=== PATIENT | female | born 1955 | race African-American/Black ===

== ENCOUNTER 2017-08-10 14:49 | Emergency (ER) | payer MEDICARE, OTHER ==
[2017-08-10 15:21] LABS: Hemoglobin 5.8 g/dL (12.0-16.0); Mean Corpuscular Hemoglobin 38.1 pg (27.0-31.0); Mean Platelet Volume 6.8 fL (7.4-10.4); Platelet Count 283 thou/uL (130-400); RBC Distribution Width 16.3 % (11.5-14.5); Red Blood Cell (RBC) Count 1.51 mill/uL (4.20-5.40); White Blood Cell (WBC) Count 4.3 thou/uL (4.8-10.8)
--- NOTE | 2017-08-10 15:41 | RAD ---
FRONTAL RADIOGRAPH CHEST: Date: 08-10-17 Comparison: 10-06-16 History: Chest pain. FINDINGS: There is atherosclerotic calcification of the thoracic aorta. Clips in the right upper quadrant sugge st prior cholecystectomy. No pneumothorax, pleural fluid, focal consolidation or alveolar edema. Smal l calcified nodules and bilateral lung apices suggest prior granulomatous disease. IMPRESSION: Chronic findings as detailed above. No focal consolidation or alveolar edema. POS: [facility]
[2017-08-10 15:42] LABS: #Lymphocytes 1.1 thou/uL (1.20-3.40); #Monocytes 0.4 thou/uL (0.11-0.59); #Neutrophils 2.8 thou/uL (1.40-6.50); %Basophils 0.3 % (0.0-1.0); %Eosinophils 1.1 % (0.0-10.0); %Lymphocytes 24.9 % (21.0-51.0); %Monocytes 9.4 % (0.0-10.0); %Neutrophils 64.2 % (42.0-75.0); Anisocytosis SLIGHT = 6-15 cells (100X) (0-5/hpf); CKMB 0.7 ng/mL (0-6.6); MDiff Complete? YES; Macrocytosis SLIGHT = 6-15 cells (100X) (0-5/hpf); PLT Morphology Comment Appears Adequate; Polychromasia SLIGHT = 2-3 cells (100X) (0-2/hpf); Troponin I 0.042 ng/mL (< 0.028)
[2017-08-10 15:45] LABS: ALT (SGPT) 10 U/L (8-55); AST (SGOT) 16 U/L (5-34); Albumin 3.3 g/dL (3.4-4.8); Alkaline Phosphatase 136 U/L (40-150); Anion Gap 16 mmol/L (10-20); BUN (Urea Nitrogen) 13 mg/dL (9.8-20.1); Bilirubin, Total 0.2 mg/dL (0.2-1.2); Calc. Creatinine Clearance 0 mL/min (70-130); Calcium 8.4 mg/dL (7.8-10.44); Carbon Dioxide 30 mmol/L (23-31); Chloride 99 mmol/L (98-107); Estimated GFR-MDRD 20; Glucose 104 mg/dL (80-115); Lipase 101 U/L (8-78); Potassium 3.6 mmol/L (3.5-5.1); Protein, Total 6.3 g/dL (6.0-8.3); Sodium 141 mmol/L (136-145)
== END 2017-08-10 22:27 | disposition home or self-care (01) ==
LOC: ERS 14:49
DX: D64.9 Anemia, unspecified (principal); D50.0 Iron deficiency anemia secondary to blood loss (chronic); I25.10 Atherosclerotic heart disease of native coronary artery without angina pectoris; J45.909 Unspecified asthma, uncomplicated; I12.0 Hypertensive chronic kidney disease with stage 5 chronic kidney disease or end stage renal disease; N18.6 End stage renal disease; F17.210 Nicotine dependence, cigarettes, uncomplicated; Z99.2 Dependence on renal dialysis; Z79.899 Other long term (current) drug therapy
CPT/HCPCS: 36430; 71045; 80053; 82553; 83690; 84484; 85025; 86850; 86900; 86901; 86920; 93005; 99285; P9016; 36415

== ENCOUNTER 2017-10-06 04:36 | Inpatient (IN) | payer MEDICARE, OTHER ==
[2017-10-06 05:57] LABS: #Eosinphils 0.2 thou/uL (0.0-0.7); #Monocytes 0.4 thou/uL (0.11-0.59); #Neutrophils 2.4 thou/uL (1.40-6.50); %Basophils 0.4 % (0.0-1.0); %Eosinophils 5.3 % (0.0-10.0); %Lymphocytes 25.4 % (21.0-51.0); %Monocytes 10.7 % (0.0-10.0); %Neutrophils 58.2 % (42.0-75.0); Hemoglobin 5.8 g/dL (12.0-16.0); Mean Corpuscular HGB CONC 33.4 g/dL (32.0-36.0); Mean Corpuscular Hemoglobin 33.4 pg (27.0-31.0); Platelet Count 228 thou/uL (130-400); RBC Distribution Width 16.6 % (11.5-14.5); Red Blood Cell (RBC) Count 1.73 mill/uL (4.20-5.40); White Blood Cell (WBC) Count 4.1 thou/uL (4.8-10.8)
[2017-10-06 06:04] LABS: ALT (SGPT) Less than 7 U/L (8-55); AST (SGOT) 13 U/L (5-34); Albumin 3.1 g/dL (3.4-4.8); Alkaline Phosphatase 119 U/L (40-150); Anion Gap 14 mmol/L (10-20); BUN (Urea Nitrogen) 30 mg/dL (9.8-20.1); Bilirubin, Total 0.2 mg/dL (0.2-1.2); Calc. Creatinine Clearance 0 mL/min (70-130); Calcium 9.1 mg/dL (7.8-10.44); Carbon Dioxide 28 mmol/L (23-31); Chloride 98 mmol/L (98-107); Estimated GFR-MDRD 11; Globulin 3.1 g/dL (2.4-3.5); Glucose 84 mg/dL (80-115); Potassium 3.9 mmol/L (3.5-5.1); Protein, Total 6.2 g/dL (6.0-8.3); Sodium 136 mmol/L (136-145)
[2017-10-06 06:08] LABS: CKMB 1.1 ng/mL (0-6.6); Troponin I 0.082 ng/mL (< 0.028)
[2017-10-06 08:53] LABS: Troponin I 0.078 ng/mL (< 0.028)
[2017-10-06] MEDS ORDERED: hydrALAZINE 20 MG/ML VIAL SLOW IVP PRN (09:01)
[2017-10-06] MEDS ORDERED: Ondansetron ODT 4 MG TAB PO PRN (09:01)
[2017-10-06] MEDS ORDERED: Diabetic Tussin 200 MG/10 ML UDCUP PO PRN (09:01)
[2017-10-06] MEDS ORDERED: Zolpidem Tartrate 5 MG TAB PO PRN (09:01)
[2017-10-06] MEDS ORDERED: Senokot 8.6 MG TAB PO PRN ×2 (09:01)
[2017-10-06] MEDS ORDERED: Milk Of Magnesia 30 ML UDCUP PO PRN ×2 (09:01)
[2017-10-06] MEDS ORDERED: Loperamide HCl 2 MG CAP PO PRN (09:01)
[2017-10-06] MEDS ORDERED: Chloraseptic Spray 180 ml Bottle PO PRN (09:01)
[2017-10-06] MEDS ORDERED: Ondansetron HCl/PF 4 MG/2 ML Vial IVP PRN (09:01)
[2017-10-06] MEDS ORDERED: Sodium Chloride 0.65% Nasal 44 ML BOT EA NARE PRN (09:01)
[2017-10-06] MEDS ORDERED: Eucerin (Mineral Oil/Petrolatum,White) 30 gm Jar TOP PRN (09:01)
[2017-10-06] MEDS ORDERED: Acetaminophen 325 MG TAB PO PRN (09:01)
[2017-10-06] MEDS ORDERED: Nitroglycerin 0.4 MG TAB (25 Tab Bottle) SL PRN (09:01)
[2017-10-06] MEDS ORDERED: Mag-Al 1200 mg/1200 mg/30 ML UDCUP PO PRN (09:01)
[2017-10-06] MEDS ORDERED: Loratadine 10 MG TAB PO PRN (09:01)
[2017-10-06] MEDS ORDERED: Artificial Tears 18 DROP/0.9 ML EA EYE PRN (09:01)
--- NOTE | 2017-10-06 09:53 | HP ---
PRIMARY CARE PHYSICIAN: Dr. Abel Blank. REASON FOR ADMISSION: Chest pain, symptomatic anemia. HISTORY OF PRESENT ILLNESS: A 62-year-old female with a history of hypertension, end-stage renal dis ease on hemodialysis who was experiencing burning pain in her substernal area, epigastric discomfort as well as burning pain in her lower extremity. She was feeling bad. She just recovered from flu-li ke illness, but still she has intermittent cough. She denies any fever or chills, but lately she was feeling more fatigued, tired, dizzy and weak. Even after a little exertion, she was getting out of breath. She denies any NSAID abuse. She denies any black tarry stool. She denies any hematochezia. She denies any vomiting, but she feels nauseated. Her appetite is good. She denies any weight los s. She denies any fever or chills. She does make urine, but she denies any UTI symptoms. She had l ast dialysis on Thursday, yesterday. At that time, patient was feeling very bad and Dr. Reyna saw her an d advised to get blood test done. She came to emergency room today and her hemoglobin was found to b e 5.8. Her troponin is also indeterminate range. At this point, we are admitting this patient for e valuation of elevated troponin and symptomatic anemia. Patient had upper endoscopy in 09/2016. At that time, it showed mild erosive gastritis and she also had a colonoscopy at the same time which was unremarkable. This patient requires periodic blood tamez sfusion support. REVIEW OF SYSTEMS: The following complete review of systems was negative, unless otherwise mentioned in the HPI or below: Constitutional: Weight loss or gain, ability to conduct usual activities. Skin: Rash, itching. Eyes: Double vision, pain. ENT/Mouth: Nose bleeding, neck stiffness, pain, tenderness. Cardiovascular: Palpitations, dyspnea on exertion, orthopnea. Respiratory: Shortness of breath, wheezing, cough, hemoptysis, fever or night sweats. Gastrointestinal: Poor appetite, abdominal pain, heartburn, nausea, vomiting, constipation, or diarr hea. Genitourinary: Urgency, frequency, dysuria, nocturia. Musculoskeletal: Pain, swelling. Neurologic/Psychiatric: Anxiety, depression. Allergy/Immunologic: Skin rash, bleeding tendency. Please see my HPI for pertinent positive and negative. All other review of systems reviewed and nega tive except as mentioned in the HPI. ALLERGIES: IODINATED CONTRAST MEDIA, PENICILLIN. CURRENT HOME MEDICATIONS: Lipitor 40 mg p.o. at bedtime, Plavix 75 mg p.o. daily, losartan 100 mg p. o. daily, clonidine 0.1 mg twice daily, Renvela 800 mg 3 tablets 3 times daily. PAST MEDICAL HISTORY: History of recurrent admission for symptomatic anemia, required multiple blood transfusions in the past; history of H. pylori which was treated in the past; ESRD on hemodialysis M , Thursday, Thursday for last 10 years; hypertension; chronic hepatitis C with a history of inter feron treatment; anemia of renal disease; secondary hyperparathyroidism of renal origin; dyslipidemia ; coronary artery disease with a stent in 2016. PAST SURGICAL HISTORY: Cholecystectomy, left arm AV fistula, cardiac catheterization with stent plac ement in 2015; EGD and colonoscopy in 09/2016 which showed mild gastritis and normal colonoscopy. PAST PSYCHIATRIC HISTORY: Reviewed and negative. FAMILY HISTORY: Diabetes mellitus to her brother and ESRD to another brother. SOCIAL HISTORY: The patient lives in [place]. She is on disability. She occasionally uses alcohol . She does smoke cigarettes of variable quantity and she denies any other illicit drug abuse. EMERGENCY ROOM COURSE: Patient is receiving blood transfusion. PHYSICAL EXAMINATION: VITAL SIGNS: On arrival, blood pressure 123/75, pulse 90, respiratory rate 18, temperature 97.6, sat uration 100% on room air, weight 58.9 kilograms. GENERAL: Patient is currently alert, awake, no obvious acute distress. HEAD: Normocephalic, atraumatic. EYES: Pupils are round and reactive to light. Extraocular muscles intact. Conjunctivae pale. ENT: Oropharynx within normal limit. Pale mucous membranes. No oral lesion, no pharyngeal erythema , no exudate. NECK: Supple, no JVD, no thyromegaly, no carotid bruit. LUNGS: Clear to auscultation without any rhonchi or rales. CARDIAC: S1 and S2 regular. No murmur, no gallop, no rub. ABDOMEN: Soft, bowel sounds present, nontender, nondistended. No organomegaly, no mass, no suprapub ic tenderness. BACK: Examination unremarkable, no CVA tenderness. EXTREMITIES: Upper extremity AV fistula in left upper arm. Lower extremity, no edema. Good periphe ral pulsation. SKIN: No skin rash. HEMATOLOGICAL SYSTEM: No lymphadenopathy. PSYCHIATRIC: Normal affect. IMAGING DATA AND SIGNIFICANT LABORATORY DATA: 1. EKG showing normal sinus rhythm, premature ventricular complexes. 2. CBC: WBC 4.1, hemoglobin 5.8, MCV 100.0, platelet 228. 3. BMP: Sodium 136, potassium 3.9, chloride 98, carbon dioxide 28, BUN 30, creatinine 4.97, glucose 84, calcium 9.1. 5. LFT: AST 13, ALT is less than 7, alkaline phosphatase 119, albumin 3.1. CK-MB 1.1, troponin I 0 .082 and then 0.078. 6. Chest x-ray based on my review, chronic changes, but this x-ray was from old not recently done an y chest x-ray. ASSESSMENT AND PLAN/IMPRESSION: 1. Symptomatic anemia. This patient had 09/2016 esophagogastroduodenoscopy and colonoscopy. Esopha gogastroduodenoscopy showed gastritis and colonoscopy was normal. This patient has recurrent admissi on for symptomatic anemia. She is on Plavix and I am suspecting that small intestinal vascular malfo rmation, possible culprit for her recurrent anemia as well as renal disease. She will need outpatien t capsule endoscopy and that is why she will need Gastroenterology followup. This admission, I will check stool for guaiac, but doubt this patient need any more procedures during this admission. We wi ll transfuse PRBC and we will repeat CBC tomorrow. If her blood count is still below 7.5, then we wi ll consider another unit of transfusion and then consider discharge home, possibly tomorrow after leona lysis. 2. Anemia of renal disease with macrocytosis. I will add Nephro-Tanika one tablet p.o. daily and ferr ous sulfate 325 mg p.o. daily as well. Patient will get Procrit 10,000 units subcu one time dose and tomorrow I will send anemia workup as well. 3. End-stage renal disease, on hemodialysis. Dr. Reyna will be consulted and Dr. Reyna will decide abou t dialysis. Patient is on Thursday, Thursday, and Thursday dialysis. 4. Coronary artery disease with a history of stent. We will continue Lipitor 40 mg p.o. at bedtime and Plavix 75 mg p.o. daily. 5. Hypertension. We will continue losartan 100 mg p.o. daily and clonidine 0.1 mg twice daily. 6. Elevated troponin. We will do serial cardiac enzymes x3, most likely related with renal disease and symptomatic anemia. We will obtain echocardiography. 7. Chronic diastolic heart failure. Currently, patient is euvolemic and we will check lipid profile tomorrow morning. 8. Secondary hyperparathyroidism of renal origin. We will continue Renvela 2400 mg p.o. t.i.d. 9. Chest discomfort, likely due to symptomatic anemia. We will do serial cardiac enzymes. If neede d, we will perform nuclear medicine stress test during this admission before discharge. 10. Deep venous thrombosis prophylaxis, sequential compression device boots only. 11. Gastrointestinal prophylaxis, Pepcid 20 mg p.o. daily. CODE STATUS: The patient is FULL CODE. Patient's is surrogate decision maker. Disposition plan based on clinical course. We are expecting patient's stay in hospital more than 2 m idnights. Plan of care discussed with patient in detail.
[2017-10-06] MEDS ORDERED: Epoetin (ESRD) 10,000 UNITS/ML VIAL SC SCH (10:00)
[2017-10-06] MEDS ORDERED: Famotidine 20 MG TAB ONE (10:13)
[2017-10-06] MEDS ORDERED: cloNIDine 0.1 MG TAB ONE (10:13)
[2017-10-06] MEDS ORDERED: Clopidogrel Bisulfate 75 MG TAB ONE (10:14)
[2017-10-06] MEDS ORDERED: Ondansetron HCl/PF 4 MG/2 ML Vial ONE (10:14)
[2017-10-06 12:06] LABS: #Eosinphils 0.2 thou/uL (0.0-0.7); #Lymphocytes 1.2 thou/uL (1.20-3.40); #Monocytes 0.5 thou/uL (0.11-0.59); #Neutrophils 2.8 thou/uL (1.40-6.50); %Basophils 0.3 % (0.0-1.0); %Eosinophils 4.1 % (0.0-10.0); %Lymphocytes 25.4 % (21.0-51.0); %Monocytes 11.5 % (0.0-10.0); %Neutrophils 58.7 % (42.0-75.0); Hemoglobin 7.2 g/dL (12.0-16.0); Mean Corpuscular HGB CONC 33.2 g/dL (32.0-36.0); Mean Corpuscular Hemoglobin 32.3 pg (27.0-31.0); Mean Corpuscular Volume 97.3 fl (81.0-99.0); Mean Platelet Volume 7.1 fL (7.4-10.4); Platelet Count 224 thou/uL (130-400); RBC Distribution Width 17.2 % (11.5-14.5); Red Blood Cell (RBC) Count 2.21 mill/uL (4.20-5.40); White Blood Cell (WBC) Count 4.7 thou/uL (4.8-10.8)
[2017-10-06 12:36] LABS: Troponin I 0.058 ng/mL (< 0.028)
[2017-10-06] MEDS: Sevelamer Carbonate 800 MG TAB PO SCH ×2 (13:20→16:35)
[2017-10-06 14:07] VITALS: BMI 20.5
[2017-10-06] MEDS: Famotidine 20 MG TAB PO SCH (14:16)
[2017-10-06] MEDS: Folic Acid/Vit B Comp W-C PO SCH (14:16)
[2017-10-06] MEDS ORDERED: Epoetin (ESRD) 20,000 UNITS/ML SC SCH (16:00)
[2017-10-06 19:05] LABS: Bilirubin Negative (Negative); Blood, Urine Trace (Negative); Glucose, Urine (Dipstick) Negative (Negative); Leukocyte Negative (Negative); Nitrite Negative (Negative); Protein, Urine (Dipstick) 100 mg/dL (Neg-Trace); Urobilinogen 0.2 mg/dL (0.2-1.0); pH, Urine 8.5 (5.0-9.0)
[2017-10-06 19:10] LABS: Clarity CLEAR (Clear)
[2017-10-06 19:11] LABS: Other Microscopic Description Less than 2 mL rec'd
[2017-10-06] MEDS: Losartan 25 MG TAB PO SCH (20:08)
[2017-10-06] MEDS: cloNIDine 0.1 MG TAB PO SCH (20:08)
[2017-10-07 05:28] LABS: #Eosinphils 0.3 thou/uL (0.0-0.7); #Lymphocytes 1.2 thou/uL (1.20-3.40); #Monocytes 0.5 thou/uL (0.11-0.59); #Neutrophils 2.9 thou/uL (1.40-6.50); %Basophils 0.2 % (0.0-1.0); %Eosinophils 5.8 % (0.0-10.0); %Lymphocytes 24.6 % (21.0-51.0); %Monocytes 9.4 % (0.0-10.0); Hemoglobin 6.2 g/dL (12.0-16.0); Mean Corpuscular HGB CONC 33.1 g/dL (32.0-36.0); Mean Corpuscular Hemoglobin 33.2 pg (27.0-31.0); Mean Platelet Volume 7.4 fL (7.4-10.4); Platelet Count 198 thou/uL (130-400); RBC Distribution Width 17.2 % (11.5-14.5); Red Blood Cell (RBC) Count 1.87 mill/uL (4.20-5.40); White Blood Cell (WBC) Count 4.8 thou/uL (4.8-10.8)
[2017-10-07 05:38] LABS: Albumin 2.7 g/dL (3.4-4.8); Anion Gap 11 mmol/L (10-20); BUN (Urea Nitrogen) 59 mg/dL (9.8-20.1); BUN/Creatinine Ratio 8.64; Calc. Creatinine Clearance 8 mL/min (70-130); Calcium 8.9 mg/dL (7.8-10.44); Carbon Dioxide 32 mmol/L (23-31); Chloride 99 mmol/L (98-107); Estimated GFR-MDRD 7; Glucose 107 mg/dL (80-115); Iron 74 ug/dL (50-170); Iron Binding Capacity, Total 231 mcg/dL (265-497); Phosphorus 4.8 mg/dL (2.3-4.7); Potassium 4.5 mmol/L (3.5-5.1); Sodium 137 mmol/L (136-145)
[2017-10-07 05:41] LABS: Iron 73 ug/dL (50-170); Iron Binding Capacity, Total 231 mcg/dL (265-497)
[2017-10-07] MEDS: Sevelamer Carbonate 800 MG TAB PO SCH ×3 (08:25→16:42)
--- NOTE | 2017-10-07 09:10 | CON ---
DATE OF CONSULTATION: 10/07/2017 HISTORY OF PRESENT ILLNESS: Ms. Sullivan is a 62-year-old black female with ESRD and admitted for symp tomatic anemia. Please note this patient has history of GI bleed in the past. Hemoglobin was rechec ked and it was noted to be below 6. She received 1 unit of packed RBC yesterday. She is currently a t the dialysis unit and I am at the bedside supervising her dialysis. Our plan is to give her 2 more units of packed RBC. Consider reconsulting GI again. REVIEW OF SYSTEMS: Positive for generalized malaise. No nausea, no vomiting. Denies any overt gregg tochezia. Denies any tarry stools, no chest pain or shortness of breath. Decreased appetite, decrea sed energy level. No headache, no diplopia, no syncopal episode, no sore throat. No gross hematuria , no dysuria, no urinary frequency, no abdominal pain, no shortness of breath, no chest pain, no head ache, no diplopia. MEDICATIONS: The patient is currently on Tylenol 650 mg q.4h. p.r.n., Lipitor 40 mg at bedtime, Brianne pres 0.1 mg b.i.d., Plavix 75 mg every day, Epogen 10,000 units subcu every 7 days, ferrous sulfate 3 25 mg once a day, Cozaar 100 mg at bedtime, Zofran p.r.n., Renvela 800 mg 4 tabs t.i.d. with meals. PAST MEDICAL HISTORY: 1. ESRD - on maintenance hemodialysis Thursday, Thursday, and Thursday. 2. 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 3. Chronic hepatitis C. 4. Sickle cell trait. 5. Peripheral vascular disease. 6. Depression. 7. Hypertension. PAST SURGICAL HISTORY: 1. Status post upper and lower GI endoscopy. 2. Status post AV fistula placement. 3. Status post cardiac catheterization. 4. Status post left carotid endarterectomy. 5. Status post section. 6. Status post cuffed dialysis catheter placement. SOCIAL HISTORY: The patient lives in [place], and lives alone. Smoked for 42 years, one pa ck a day. Status post alcohol abuse. Status post multiple blood transfusions. No IV drug abuse. E ducation: Some college courses. 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 FAMILY HISTORY: Positive family history of ESRD. ALLERGIES: PENICILLIN. TRAUMA: None. IMMUNIZATIONS: Up to date. HOSPITALIZATIONS: Please see past medical history. PHYSICAL EXAMINATION: VITAL SIGNS: Blood pressure is 171/75, heart rate 80, respiratory rate 18, temperature 98.4, pulse o x 92%. GENERAL: Noted to be awake, alert, comfortable, not in distress. SKIN: Adequate turgor. HEENT: Pale conjunctivae, anicteric sclerae. NECK: No neck mass, no carotid bruits, no JVD. CHEST: No deformities. LUNGS: Clear breath sounds, no wheezing, no crackles. HEART: Normal sinus rhythm. No murmur, no gallops, no rubs. ABDOMEN: Globular, soft, nontender, no masses. EXTREMITIES: No edema, no deformities. NEUROLOGIC: Awake, oriented to 3 spheres. Moving all extremities. No tremors. LABORATORY: 10/07/2017 - White count 4.8, hemoglobin 6.2, hematocrit 18.8. 10/06/2017 - Hemoglobin 5.8. 10/07/2017 - Sodium 137, potassium 4.5, chloride 99, carbon dioxide 32, BUN 59, creatinine 6.83, gluc ose 107, calcium is 8.9, phosphorus 4.8, ferritin 171, albumin 2.7. ASSESSMENT AND PLAN: 1. Anemia - most likely from her chronic gastrointestinal bleed. Consider GI consult, p.r.n. blood transfusion, start Epogen subcu q. week, 10,000 units. 2. End-stage renal disease, stable. Currently undergoing hemodialysis. Fluid removal only as marline ated using no heparin due to the recent gastrointestinal bleed. 3. Hypoalbuminemia - start Nepro 1 can b.i.d. Recheck base met and CBC in a.m.
[2017-10-07] MEDS ORDERED: Heparin 10,000 UNITS/ 10 ML VIAL ONE (10:00)
--- NOTE | 2017-10-07 10:23 | PDOC.PN ---
- Subjective Encounter Start Date: 10/07/17 Encounter Start Time: 07:40 -: old records requested/rev Patient seen and examined. No new complaints. No overnight events denies any bleeding but guiac is positive - Objective Resuscitation Status: Resuscitation Status FULL:Full Resuscitation MAR Reviewed: Yes Vital Signs & Weight: Vital Signs (12 hours) Temp Pulse Pulse Resp BP BP Pulse Ox 10/07/17 09:00 97 F L 80 16 137/84 10/07/17 08:45 97 F L 82 16 137/74 10/07/17 08:30 97 F L 79 16 130/67 10/07/17 08:11 97 F L 81 18 103/65 10/07/17 07:36 98.4 F 80 18 97 10/07/17 04:00 98.4 F 80 18 171/75 H 92 L 10/07/17 00:00 98.1 F 86 18 124/61 94 L Weight Weight 134 lb 12.8 oz I&O: 10/06/17 10/07/17 10/08/17 06:59 06:59 06:59 Intake Total 1380 300 Output Total 20 Balance 1360 300 Result Diagrams: 10/07/17 05:10 10/07/17 05:10 Phys Exam - Physical Examination Constitutional: NAD HEENT: PERRLA, moist MMs, sclera anicteric Neck: no JVD, supple Respiratory: no wheezing, no rales, no rhonchi Cardiovascular: RRR, no significant murmur, no rub Gastrointestinal: soft, non-tender, no distention, positive bowel sounds Musculoskeletal: no edema, pulses present Neurological: non-focal, normal sensation, moves all 4 limbs Lymphatic: no nodes Psychiatric: normal affect, A&O x 3 Skin: no rash, normal turgor Dx/Plan (1) Elevated troponin Code(s): R74.8 - ABNORMAL LEVELS OF OTHER SERUM ENZYMES Status: Acute (2) Guaiac positive stools Status: Acute (3) Symptomatic anemia Code(s): D64.9 - ANEMIA, UNSPECIFIED Status: Acute (4) Anemia of renal disease Code(s): D63.1 - ANEMIA IN CHRONIC KIDNEY DISEASE Status: Chronic (5) COPD (chronic obstructive pulmonary disease) Status: Chronic (6) Chronic diastolic (congestive) heart failure Code(s): I50.32 - CHRONIC DIASTOLIC (CONGESTIVE) HEART FAILURE Status: Chronic (7) Dyslipidemia Code(s): E78.5 - HYPERLIPIDEMIA, UNSPECIFIED Status: Chronic (8) ESRD (end stage renal disease) on dialysis Code(s): N18.6 - END STAGE RENAL DISEASE; Z99.2 - DEPENDENCE ON RENAL DIALYSIS Status: Chronic (9) HTN (hypertension) Code(s): I10 - ESSENTIAL (PRIMARY) HYPERTENSION Status: Chronic (10) PVD (peripheral vascular disease) Code(s): I73.9 - PERIPHERAL VASCULAR DISEASE, UNSPECIFIED Status: Chronic (11) Secondary hyperparathyroidism of renal origin Code(s): N25.81 - SECONDARY HYPERPARATHYROIDISM OF RENAL ORIGIN Status: Chronic - Plan cont current plan of care * medication reviewed as below * symptomatic treatment * monitor H & H * repeat labs tomorrow * consult GI for recurrent anemia and guiac positive stool * HD as per nephrology * today with HD will transfuse 2 unit of PRBC * selected home medication. Review of Systems - Review of Systems Eyes: negative: Pain, Vision Change, Conjunctivae Inflammation, Eyelid Inflammation, Redness, Other ENT: negative: Ear Pain, Ear Discharge, Nose Pain, Nose Discharge, Nose Congestion, Mouth Pain, Mouth Swelling, Throat Pain, Throat Swelling, Other Respiratory: negative: Cough, Dry, Shortness of Breath, Hemoptysis, SOB with Excertion, Pleuritic Pain, Sputum, Wheezing Cardiovascular: negative: chest pain, palpitations, orthopnea, paroxysmal nocturnal dyspnea, edema, light headedness, other Gastrointestinal: negative: Nausea, Vomiting, Abdominal Pain, Diarrhea, Constipation, Melena, Hematochezia, Other Genitourinary: negative: Dysuria, Frequency, Incontinence, Hematuria, Retention , Other Musculoskeletal: negative: Neck Pain, Shoulder Pain, Arm Pain, Back Pain, Hand Pain, Leg Pain, Foot Pain, Other Skin: negative: Rash, Lesions, Neftali, Bruising, Other - Medications/Allergies Allergies/Adverse Reactions: Allergies Allergy/AdvReac Type Severity Reaction Status Date / Time iodine Allergy Severe Verified 02/09/17 22:47 Penicillins Allergy Severe Verified 02/09/17 22:47 Medications: Current Medications Acetaminophen (Tylenol) 650 mg PO Q4H PRN PRN Reason: Headache/Fever or Pain Hydrocodone Bitart/Acetaminophen ([place] 5/325) 1 tab PO Q4H PRN PRN Reason: Moderate Pain (4-6) Al Hydroxide/Mg Hydroxide (Maalox) 30 ml PO Q6H PRN PRN Reason: Heartburn or Indigestion Artificial Tears (Tears Naturale) 0 drop EA EYE PRN PRN PRN Reason: Dry Eyes Atorvastatin Calcium (Lipitor) 40 mg PO HS [facility] Clonidine (Catapres) 0.1 mg PO BID [facility] Last Admin: 10/06/17 20:08 Dose: 0.1 mg Clopidogrel Bisulfate (Plavix) 75 mg PO DAILY [facility] Epoetin Johnson (Procrit) 10,000 units SC Q7D [facility] Last Admin: 10/06/17 15:57 Dose: Not Given Famotidine (Pepcid) 20 mg PO DAILY [facility] Last Admin: 10/06/17 14:16 Dose: Not Given Ferrous Sulfate (Feosol) 325 mg PO QA-[facility] Guaifenesin (Robitussin Sf) 200 mg PO Q4H PRN PRN Reason: Cough Hydralazine HCl (Apresoline) 10 mg SLOW IVP Q4H PRN PRN Reason: Systolic BP > 180 Loperamide HCl (Imodium) 2 mg PO PRN PRN PRN Reason: Diarrhea/Loose Stools Loratadine (Claritin) 10 mg PO DAILYPRN PRN PRN Reason: Sinus Symptoms Losartan Potassium (Cozaar) 100 mg PO [facility] Last Admin: 10/06/17 20:08 Dose: 100 mg Magnesium Hydroxide (Milk Of Magnesium) 30 ml PO DAILYPRN PRN PRN Reason: Constipation Magnesium Hydroxide (Milk Of Magnesium) 30 ml PO DAILYPRN PRN PRN Reason: Constipation Mineral Oil/White Petrolatum (Eucerin Cream) 0 gm TOP BIDPRN PRN PRN Reason: Dry Skin Nitroglycerin (Nitrostat) 0.4 mg SL Q5MIN PRN PRN Reason: Chest Pain Ondansetron HCl (Zofran Odt) 4 mg PO Q6H PRN PRN Reason: Nausea/Vomiting Ondansetron HCl (Zofran) 4 mg IVP Q6H PRN PRN Reason: Nausea/Vomiting Phenol (Chloraseptic [place] 180 Ml Bot) 0 ml PO PRN PRN PRN Reason: Sore Throat Senna (Senokot) 2 tab PO HSPRN PRN PRN Reason: Constipation Sevelamer Carbonate (Renvela) 2,400 mg PO TID-[facility] Last Admin: 10/07/17 08:25 Dose: Not Given Sodium Chloride ([place] Nasal [place] 0.65%) 0 ml EA NARE QIDPRN PRN PRN Reason: Nasal Congestion Vitamin B Complex/Vit C/Folic Acid (Nephro-Tanika Tablet) 1 tab PO DAILY [facility] Last Admin: 10/06/17 14:16 Dose: Not Given Zolpidem Tartrate (Ambien) 5 mg PO HSPRN PRN PRN Reason: Insomnia
[2017-10-07] MEDS: Famotidine 20 MG TAB PO SCH (10:39)
[2017-10-07] MEDS: Ferrous Sulfate 325 MG TAB PO SCH (10:39)
[2017-10-07] MEDS: cloNIDine 0.1 MG TAB PO SCH ×2 (10:39→20:39)
[2017-10-07] MEDS: Clopidogrel Bisulfate 75 MG TAB PO SCH (10:39)
[2017-10-07] MEDS: Folic Acid/Vit B Comp W-C PO SCH (10:39)
[2017-10-07] MEDS: Losartan 25 MG TAB PO SCH (20:39)
[2017-10-07] MEDS: Atorvastatin Calcium 40 MG TAB PO SCH (20:39)
[2017-10-07] MEDS ORDERED: GoLYTELY 4,000 ml Bottle PO SCH (21:00)
--- NOTE | 2017-10-08 05:13 | CON ---
DATE OF CONSULTATION: 10/07/2017 REASON FOR CONSULTATION: Symptomatic anemia (possible GI bleeding). CONSULTING PHYSICIAN: Dr. Alka Ramírez. HISTORY OF PRESENT ILLNESS: Patient is a 62-year-old female with past medical history of hypertensio n, end-stage renal disease on hemodialysis, chronic hepatitis C, status post interferon treatment, se condary hyperparathyroidism to end-stage renal disease, hyperlipidemia, coronary artery disease, and anemia of renal disease requiring frequent transfusions presenting with complaints of symptomatic ane adrian. She states that she was in her usual state of health until approximately this last week when sh e began to have increased substernal burning sensation that would radiate to her mid epigastric regio n, would not radiate to other regions of the body, worse with food, better with blood infusion, and r each a severity of 10/10. This was also associated with complaints of early satiety, mild nausea wit hout vomiting, but no complaints of overt GI bleeding; however, upon further questioning of the patie nt, she states that she had nausea and vomiting approximately 1 week ago with dark-colored emesis emily t she thought might be considered coffee-ground emesis, but did not recur over the course of the week . She also endorsed the appearance of a solid black stool over the same time, but again it is unclea r whether the patient saw black or dark-colored stool. She denies any overt complaints of hematemesi s or hematochezia at this point in time. She also denies any fevers, chills, odynophagia, dysphagia, or weight loss. With the worsening of her abdominal pain and with increased fatigue, tiredness, and dizziness it prompted her to seek healthcare assistance, where she was noted on admission to have si gnificant anemia on admission concerning for blood loss. She was also noted to have a mild troponin elevation in the indeterminate range in addition to what was considered symptomatic anemia. Upon review of the patient's chart, she has had multiple transfusions over the last year with both an EGD and colonoscopy performed in 09/2016 for the same reasons of symptomatic anemia. At that time, it showed mild erosive gastritis as well as an unremarkable colonoscopy, both negative for the etiolo gy of her GI bleeding. However, also upon chart review, she did have an episode of a bleeding, arter iovenous malformation located in the upper GI tract that was intervened upon, although those records could not be obtained for review. REVIEW OF SYSTEMS: A ten-category review of systems was obtained with all responses negative except for the pertinent positives as listed in the HPI. PAST MEDICAL HISTORY: Per HPI. PAST SURGICAL HISTORY: Cholecystectomy, left arm AV fistula, cardiac catheterization with stent plac ement in 2016. FAMILY HISTORY: Denies any GI malignancies. SOCIAL HISTORY: Denies any tobacco or illicit drug use, but does drink approximately one drink per w [place]. OUTPATIENT MEDICATIONS: Reviewed. ALLERGIES: IODINATED CONTRAST MEDIA and PENICILLIN. PHYSICAL EXAMINATION: VITAL SIGNS: Temperature of 98.4, pulse 72, blood pressure 139/81, respiratory rate 16, satting 98% on room air. GENERAL: Patient is lying in bed in no acute distress. Alert and oriented x4. NECK: Supple. No JVD noted. CARDIOVASCULAR: Regular rate and rhythm with no discernible murmurs, gallops, or rubs. RESPIRATORY: Clear to auscultation bilaterally with no discernible wheezes or rales. ABDOMEN: Normoactive bowel sounds, soft, nondistended. Mild tenderness to palpation in the midepiga stric region. EXTREMITIES: Trace edema of the bilateral lower extremities. LABORATORY DATA: CBC with a white blood cell count of 4.8, hemoglobin 6.2, hematocrit 18.8, platelet s 198. Chemistry with sodium of 137, potassium 4.5, chloride 99, CO2 of 32, BUN 59, creatinine is 6. 83, glucose 107. AST 13, ALT less than 7, alkaline phosphatase 119, total bilirubin 0.2. Iron 73, f erritin 171, TIBC 231. IMAGING DATA: No current GI imaging is available for review. ASSESSMENT AND PLAN: Patient is a 62-year-old -[place]i female with past medical history of h ypertension, end-stage renal disease on hemodialysis, hypertension, chronic hepatitis C, status post interferon treatment secondary hyperparathyroidism, coronary artery disease, and anemia of renal dise ase presenting with symptomatic anemia. Symptomatic anemia. Patient is presenting with acute onset of midepigastric abdominal pain associate d with early satiety and with possible association of darker colored emesis and a solid black stool w ithin the last 7 days. When coupled with her, decreased H&H on admission, it is concerning for possi ble GI bleeding source, which could be contributing to her symptomatic anemia. She did have an upper endoscopy and colonoscopy obtained in 09/2016, which was fairly nondiagnostic as in terms of obtaini ng a source of her decreased H&H at that time; however, she is also noted to have a normal iron, norm al ferritin, and low TIBC consistent more with anemia of chronic disease or anemia of renal disease, but it is unclear if these labs were obtained prior to or after infusion of blood during this admissi on in any case, endoscopic evaluation is indicated for possible GI bleeding source. RECOMMENDATIONS: 1. Would continue to trend H&H and transfuse as necessary to maintain an H&H of 02/20. 2. We will start patient on PPI for possible upper gastrointestinal bleeding source. 3. We will plan for both EGD and colonoscopy tomorrow for evaluation of GI bleeding source. Patient will be made n.p.o. at midnight with GoLYTELY prep prior to the procedures. 4. Please hold all morning anticoagulation prior to the procedures. 5. Continue to monitor for any clinical signs of GI bleeding. We will continue to follow. Please call with any questions.
[2017-10-08 05:50] LABS: #Eosinphils 0.3 thou/uL (0.0-0.7); #Monocytes 0.5 thou/uL (0.11-0.59); #Neutrophils 2.9 thou/uL (1.40-6.50); %Basophils 0.5 % (0.0-1.0); %Eosinophils 5.4 % (0.0-10.0); %Lymphocytes 22.5 % (21.0-51.0); %Monocytes 9.7 % (0.0-10.0); %Neutrophils 61.8 % (42.0-75.0); Hemoglobin 8.7 g/dL (12.0-16.0); Mean Corpuscular HGB CONC 33.3 g/dL (32.0-36.0); Mean Corpuscular Hemoglobin 32.2 pg (27.0-31.0); Mean Corpuscular Volume 96.5 fl (81.0-99.0); Mean Platelet Volume 7.2 fL (7.4-10.4); Platelet Count 196 thou/uL (130-400); RBC Distribution Width 15.9 % (11.5-14.5); White Blood Cell (WBC) Count 4.6 thou/uL (4.8-10.8)
[2017-10-08 06:58] LABS: Albumin 2.9 g/dL (3.4-4.8); Anion Gap 11 mmol/L (10-20); BUN (Urea Nitrogen) 27 mg/dL (9.8-20.1); BUN/Creatinine Ratio 5.87; Calc. Creatinine Clearance 12 mL/min (70-130); Calcium 9.2 mg/dL (7.8-10.44); Carbon Dioxide 34 mmol/L (23-31); Chloride 100 mmol/L (98-107); Estimated GFR-MDRD 12; Glucose 94 mg/dL (80-115); Phosphorus 3.5 mg/dL (2.3-4.7); Potassium 4.1 mmol/L (3.5-5.1); Sodium 141 mmol/L (136-145)
[2017-10-08] MEDS: Sevelamer Carbonate 800 MG TAB PO SCH ×3 (08:10→16:40)
[2017-10-08] MEDS: cloNIDine 0.1 MG TAB PO SCH ×2 (08:13→20:14)
[2017-10-08] MEDS: Ferrous Sulfate 325 MG TAB PO SCH (08:13)
[2017-10-08] MEDS: Clopidogrel Bisulfate 75 MG TAB PO SCH (08:14)
[2017-10-08] MEDS: Folic Acid/Vit B Comp W-C PO SCH (08:14)
--- NOTE | 2017-10-08 08:52 | PRG ---
DATE OF SERVICE: 10/08/2017 RENAL MEDICINE SUBJECTIVE: Ms. Sullivan is a 62-year-old black female admitted for severe anemia, ESRD, and here for further management of the anemia. She was also referred to [facility] for maintenance hemodialysi s. She underwent heparin-free dialysis yesterday. She is feeling better. She has received several units of packed RBC. GI will be doing an upper and lower GI endoscopy with this patient. Patient de nies any chest pain, shortness of breath. PHYSICAL EXAMINATION: VITAL SIGNS: Blood pressure 173/75, heart rate 80, respiratory rate 16, temperature 98.3, pulse ox 9 7%. GENERAL: Awake, alert, comfortable, not in distress. SKIN: Adequate turgor. HEENT: Slightly pale conjunctivae, anicteric sclerae. NECK: No neck mass, no carotid bruits, no JVD. CHEST: No deformities. LUNGS: Clear breath sounds, no wheezing, no crackles. HEART: Normal sinus rhythm. No murmurs, no gallops, no rubs. ABDOMEN: Globular, soft, nontender. No masses. EXTREMITIES: No edema, no deformities. MEDICATIONS: Medications of 10/08/2017 reviewed. LABORATORY DATA: Laboratories of 10/08/3017; white count 4.6, hemoglobin 8.7. Sodium 141, potassium 4.1, chloride 100, carbon dioxide 34, BUN 27, creatinine 4.6, glucose 94, calcium 9.2, phosphorus 3. 5, albumin 2.9. ASSESSMENT AND PLAN: 1. Anemia, rule out - rule out gastrointestinal bleed - patient for upper and lower GI endoscopy. 2. End-stage renal disease, stable. Continuing heparin free hemodialysis. Tolerating said treatmen t. Patient has received several units of packed RBC for her gastrointestinal bleed. I have maintain ed her on 10,000 units of Epogen subcu every week. Overall, prognosis remains guarded.
[2017-10-08] MEDS ORDERED: Pantoprazole 40 MG VIAL IVP SCH (09:00)
--- NOTE | 2017-10-08 09:52 | PDOC.PN ---
- Subjective Encounter Start Date: 10/08/17 Encounter Start Time: 07:50 Patient seen and examined. No new complaints. No overnight events - Objective Resuscitation Status: Resuscitation Status FULL:Full Resuscitation MAR Reviewed: Yes Vital Signs & Weight: Vital Signs (12 hours) Temp Pulse Resp BP BP Pulse Ox 10/08/17 08:13 173/75 H 10/08/17 08:00 98.3 F 80 16 97 10/08/17 07:49 98.3 F 80 16 173/75 H 97 10/08/17 04:00 97.9 F 78 14 166/77 H 99 Weight Weight 134 lb 12.8 oz I&O: 10/07/17 10/08/17 10/09/17 06:59 06:59 06:59 Intake Total 1380 1130 Output Total 20 1500 Balance 1360 -370 Result Diagrams: 10/08/17 05:21 10/08/17 05:21 EKG Reviewed by me: Yes Phys Exam - Physical Examination Constitutional: NAD HEENT: PERRLA, moist MMs, sclera anicteric Neck: no JVD, supple Respiratory: no wheezing, no rales, no rhonchi Cardiovascular: RRR, no significant murmur, no rub Gastrointestinal: soft, non-tender, no distention, positive bowel sounds Musculoskeletal: no edema, pulses present Neurological: non-focal, normal sensation Lymphatic: no nodes Psychiatric: normal affect Skin: no rash, normal turgor Dx/Plan (1) Elevated troponin Code(s): R74.8 - ABNORMAL LEVELS OF OTHER SERUM ENZYMES Status: Acute (2) Guaiac positive stools Status: Acute (3) Symptomatic anemia Code(s): D64.9 - ANEMIA, UNSPECIFIED Status: Acute (4) Anemia of renal disease Code(s): D63.1 - ANEMIA IN CHRONIC KIDNEY DISEASE Status: Chronic (5) COPD (chronic obstructive pulmonary disease) Status: Chronic (6) Chronic diastolic (congestive) heart failure Code(s): I50.32 - CHRONIC DIASTOLIC (CONGESTIVE) HEART FAILURE Status: Chronic (7) Dyslipidemia Code(s): E78.5 - HYPERLIPIDEMIA, UNSPECIFIED Status: Chronic (8) ESRD (end stage renal disease) on dialysis Code(s): N18.6 - END STAGE RENAL DISEASE; Z99.2 - DEPENDENCE ON RENAL DIALYSIS Status: Chronic (9) HTN (hypertension) Code(s): I10 - ESSENTIAL (PRIMARY) HYPERTENSION Status: Chronic (10) PVD (peripheral vascular disease) Code(s): I73.9 - PERIPHERAL VASCULAR DISEASE, UNSPECIFIED Status: Chronic (11) Secondary hyperparathyroidism of renal origin Code(s): N25.81 - SECONDARY HYPERPARATHYROIDISM OF RENAL ORIGIN Status: Chronic - Plan cont current plan of care * today EGD and colonoscopy * H & H stable * medication reviewed as below * symptomatic treatment * expecting discharge tomorrow. Review of Systems - Review of Systems Eyes: negative: Pain, Vision Change, Conjunctivae Inflammation, Eyelid Inflammation, Redness, Other ENT: negative: Ear Pain, Ear Discharge, Nose Pain, Nose Discharge, Nose Congestion, Mouth Pain, Mouth Swelling, Throat Pain, Throat Swelling, Other Respiratory: negative: Cough, Dry, Shortness of Breath, Hemoptysis, SOB with Excertion, Pleuritic Pain, Sputum, Wheezing Cardiovascular: negative: chest pain, palpitations, orthopnea, paroxysmal nocturnal dyspnea, edema, light headedness, other Gastrointestinal: negative: Nausea, Vomiting, Abdominal Pain, Diarrhea, Constipation, Melena, Hematochezia, Other Genitourinary: negative: Dysuria, Frequency, Incontinence, Hematuria, Retention , Other Musculoskeletal: negative: Neck Pain, Shoulder Pain, Arm Pain, Back Pain, Hand Pain, Leg Pain, Foot Pain, Other Skin: negative: Rash, Lesions, Neftali, Bruising, Other - Medications/Allergies Allergies/Adverse Reactions: Allergies Allergy/AdvReac Type Severity Reaction Status Date / Time iodine Allergy Severe Verified 02/09/17 22:47 Penicillins Allergy Severe Verified 02/09/17 22:47 Medications: Current Medications Acetaminophen (Tylenol) 650 mg PO Q4H PRN PRN Reason: Headache/Fever or Pain Hydrocodone Bitart/Acetaminophen ([place] 5/325) 1 tab PO Q4H PRN PRN Reason: Moderate Pain (4-6) Al Hydroxide/Mg Hydroxide (Maalox) 30 ml PO Q6H PRN PRN Reason: Heartburn or Indigestion Artificial Tears (Tears Naturale) 0 drop EA EYE PRN PRN PRN Reason: Dry Eyes Atorvastatin Calcium (Lipitor) 40 mg PO HS [facility] Last Admin: 10/07/17 20:39 Dose: 40 mg Clonidine (Catapres) 0.1 mg PO BID [facility] Last Admin: 10/08/17 08:13 Dose: 0.1 mg Clopidogrel Bisulfate (Plavix) 75 mg PO DAILY [facility] Last Admin: 10/08/17 08:14 Dose: 75 mg Epoetin Johnson (Procrit) 10,000 units SC Q7D [facility] Last Admin: 10/06/17 15:57 Dose: Not Given Ferrous Sulfate (Feosol) 325 mg PO QAM-[facility] Last Admin: 10/08/17 08:13 Dose: 325 mg Guaifenesin (Robitussin Sf) 200 mg PO Q4H PRN PRN Reason: Cough Hydralazine HCl (Apresoline) 10 mg SLOW IVP Q4H PRN PRN Reason: Systolic BP > 180 Loperamide HCl (Imodium) 2 mg PO PRN PRN PRN Reason: Diarrhea/Loose Stools Loratadine (Claritin) 10 mg PO DAILYPRN PRN PRN Reason: Sinus Symptoms Losartan Potassium (Cozaar) 100 mg PO [facility] Last Admin: 10/07/17 20:39 Dose: 100 mg Magnesium Hydroxide (Milk Of Magnesium) 30 ml PO DAILYPRN PRN PRN Reason: Constipation Magnesium Hydroxide (Milk Of Magnesium) 30 ml PO DAILYPRN PRN PRN Reason: Constipation Mineral Oil/White Petrolatum (Eucerin Cream) 0 gm TOP BIDPRN PRN PRN Reason: Dry Skin Nitroglycerin (Nitrostat) 0.4 mg SL Q5MIN PRN PRN Reason: Chest Pain Ondansetron HCl (Zofran Odt) 4 mg PO Q6H PRN PRN Reason: Nausea/Vomiting Ondansetron HCl (Zofran) 4 mg IVP Q6H PRN PRN Reason: Nausea/Vomiting Pantoprazole Sodium (Protonix) 40 mg IVP Q12HR [facility] Last Admin: 10/08/17 08:15 Dose: 40 mg Phenol (Chloraseptic [place] 180 Ml Bot) 0 ml PO PRN PRN PRN Reason: Sore Throat Senna (Senokot) 2 tab PO HSPRN PRN PRN Reason: Constipation Sevelamer Carbonate (Renvela) 2,400 mg PO TID-[facility] Last Admin: 10/08/17 08:10 Dose: Not Given Sodium Chloride ([place] Nasal [place] 0.65%) 0 ml EA NARE QIDPRN PRN PRN Reason: Nasal Congestion Vitamin B Complex/Vit C/Folic Acid (Nephro-Tanika Tablet) 1 tab PO DAILY [facility] Last Admin: 10/08/17 08:14 Dose: 1 tab Zolpidem Tartrate (Ambien) 5 mg PO HSPRN PRN PRN Reason: Insomnia
[2017-10-08] MEDS ORDERED: Ondansetron HCl/PF 4 MG/2 ML Vial IVP PRN (13:16)
--- NOTE | 2017-10-08 13:27 | OP ---
DATE OF PROCEDURE: 10/08/2017 PROCEDURE: Esophagogastroduodenoscopy with control of hemorrhage and biopsy and colonoscopy with bio psy. PREOPERATIVE DIAGNOSES: Gastrointestinal bleed. She had some dark colored emesis and black stool as well as some red stool. She has a combined anemia with chronic renal disease. Her iron was normal and ferritin was normal and TIBC was low. OPERATIVE NOTE: Informed consent was obtained from the patient. She was sedated with total intraven ous anesthesia. The bite block was placed and the endoscope was advanced easily to the second portio n of the duodenum and retroflexion was performed in the stomach. The esophagus was normal. The GE j unction was normal. The stomach had erosive linear gastritis in the antrum. Biopsies were obtained to rule out H. pylori. There were four small around 3 mm vascular ectasias in the first and second p ortions of the duodenum, which were cauterized with a 10-[place] gold probe. There is no active bleed ing at that time. The patient was turned around. Rectal exam was performed and revealed a prolapsed internal hemorrhoid. The colonoscope was advanced to the terminal ileum without difficulty. The mu cosa of the terminal ileum was normal. The ileocecal valve and appendiceal orifice were clearly iden tified. There was moderate diverticulosis scattered throughout the colon. Retroflex views in the re ctum revealed large inflamed internal and external hemorrhoid. There was some ulceration at the uppe r margin of this as well. This appears to be more of a mechanical ulceration or possibly ischemia fr om mechanical prolapse. Biopsy was obtained from the top of this site. IMPRESSION: 1. 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 2. Erosive gastritis, biopsied to rule out Helicobacter pylori. 3. Moderate diverticulosis scattered throughout the colon. 4. Large inflamed internal/external hemorrhoid with proximal ulceration, which may be mechanical fro m prolapse or ischemic. Biopsy was obtained from the site. 5. Otherwise normal colonoscopy to the terminal ileum. RECOMMENDATIONS: 1. Await histopathology. 2. Surgical consultation to evaluate the hemorrhoids. 3. Proton pump inhibitor.
[2017-10-08] MEDS ORDERED: Lidocaine 1% PF 5 ML VIAL ONE (15:46)
[2017-10-08] MEDS ORDERED: PHENYLEPHRINE-NS 100 MCG/ML 10 ML SYRINGE ONE (15:46)
[2017-10-08] MEDS ORDERED: PROPOFOL 200 MG/20 ML VIAL ONE (15:46)
[2017-10-08] MEDS ORDERED: metroNIDAZOLE 500 MG in Premix Bag 1 BAG IVPB SCH ×2 (18:15→20:00)
[2017-10-08] MEDS: Atorvastatin Calcium 40 MG TAB PO SCH (20:13)
[2017-10-08] MEDS: Losartan 25 MG TAB PO SCH (20:14)
--- NOTE | 2017-10-08 20:44 | HP ---
HISTORY OF PRESENT ILLNESS: Dai Sullivan is a 62-year-old black female with a readmission for anemia . She reports rectal bleeding, dark and red blood, and also dark emesis of blood. She underwent rec ent EGD, colonoscopy revealing AVMs, duodenal cauterized, and has large hemorrhoid. Dr. Martins was ca lled, but could not get into the operating room until 7:00 p.m. He thus asked me if I would see her and take care of her hemorrhoids, plan is to perform exam under anesthesia and stapled versus excisio nal hemorrhoidectomy tomorrow. I have discussed with her the risk and benefits, she consents. She r eports she has had a long history of intermittent rectal bleeding and past colonoscopies. ALLERGIES: IODINE and PENICILLIN. MEDICATIONS AT HOME: Clonidine 0.2 mg b.i.d., Ventolin inhaler, meclizine 25 mg p.r.n. t.i.d., losar johnson 100 mg daily, Plavix 75 mg a day, Renvela 2400 mg t.i.d. with meals, atorvastatin 40 mg a day. PAST SURGICAL HISTORY: Cholecystectomy, left arm fistula, cardiac catheterization with stent in 2016 , EGD and colonoscopy in 2017. PAST MEDICAL HISTORY: End-stage renal disease; chronic anemia; multiple admissions for evaluation of her anemia with recurrent EGDs and colonoscopies dialyzes Thursday, Thursday, and Thursday; history of interferon treatment; history of chronic hepatitis C; hypertension; dyslipidemia; coronary artery dis ease with a stent in 2016; hyperparathyroidism of renal origin; dyslipidemia. Patient lives in [facility], she is disabled. ALCOHOL: Occasionally. Tobacco use. PHYSICAL EXAMINATION: GENERAL: 5 feet 8, 134 pounds. VITAL SIGNS: Temperature 98.2, 84, 169/77. HEAD, EYES, EARS, NOSE, AND THROAT: Unremarkable. LUNGS: Clear to auscultation. CARDIAC: Regular rate and rhythm without murmur or gallop. ABDOMEN: Soft, nontender. Perianal area looks normal. Colonoscopy revealed large ulcerated hemorrh oid. ASSESSMENT AND PLAN: Hemorrhoids with hemorrhoidal bleeding. PLAN: Stapled hemorrhoidectomy or excision of hemorrhoids as appropriate based on exam under anesthe bailey. Risk of infection, bleeding, reoperation, pain, bleeding then reoperation of that explained, co nsents, questions answered.
[2017-10-09 06:03] LABS: #Eosinphils 0.2 thou/uL (0.0-0.7); #Lymphocytes 0.9 thou/uL (1.20-3.40); #Monocytes 0.4 thou/uL (0.11-0.59); #Neutrophils 3.2 thou/uL (1.40-6.50); %Basophils 0.9 % (0.0-1.0); %Eosinophils 4.6 % (0.0-10.0); %Lymphocytes 19.9 % (21.0-51.0); %Monocytes 7.5 % (0.0-10.0); Hemoglobin 8.9 g/dL (12.0-16.0); Mean Corpuscular HGB CONC 34.1 g/dL (32.0-36.0); Mean Corpuscular Hemoglobin 32.5 pg (27.0-31.0); Mean Corpuscular Volume 95.3 fl (81.0-99.0); Mean Platelet Volume 7.1 fL (7.4-10.4); Platelet Count 212 thou/uL (130-400); RBC Distribution Width 17.1 % (11.5-14.5); Red Blood Cell (RBC) Count 2.76 mill/uL (4.20-5.40); White Blood Cell (WBC) Count 4.7 thou/uL (4.8-10.8)
[2017-10-09 06:12] LABS: Anion Gap 16 mmol/L (10-20); BUN (Urea Nitrogen) 32 mg/dL (9.8-20.1); Calc. Creatinine Clearance 10 mL/min (70-130); Calcium 9.6 mg/dL (7.8-10.44); Carbon Dioxide 26 mmol/L (23-31); Chloride 101 mmol/L (98-107); Estimated GFR-MDRD 9; Glucose 87 mg/dL (80-115); Potassium 4.4 mmol/L (3.5-5.1); Sodium 139 mmol/L (136-145)
[2017-10-09] MEDS: cloNIDine 0.1 MG TAB PO SCH (09:08)
--- NOTE | 2017-10-09 09:54 | PRG ---
DATE OF SERVICE: 10/09/2017 SUBJECTIVE: Ms. Sullivan is a 62-year-old black female with ESRD and was admitted for symptomatic anem ia. She underwent an upper GI endoscopy and lower GI endoscopy yesterday. It revealed AVM and this was cauterized. She has also a large hemorrhoid. For this reason, surgical consult has been done. She has had long history of intermittent rectal bleeding. This morning, she is feeling tired. Denies any chest pain or shortness of breath. OBJECTIVE: VITAL SIGNS: Blood pressure is 172/83, heart rate 88, respiratory rate 16, temperature 98.1, and pul se oximetry 93%. GENERAL: Noted to be awake, lethargic, not in overt distress. SKIN: Adequate turgor. HEENT: Slightly pale conjunctivae, anicteric sclerae. NECK: No neck mass, no carotid bruits, no JVD. CHEST: No deformities. LUNGS: Clear breath sounds. HEART: Normal sinus rhythm. No murmur, no gallops, no rubs. ABDOMEN: Globular, soft, nontender, no masses. EXTREMITIES: No edema, no deformities. MEDICATIONS: Medications of 10/09/2017 reviewed. LABORATORY DATA: Laboratories of 10/09/2017: White count 4.7, hemoglobin 8.9, and hematocrit 26.2. Sodium 139, potassium 4.4, chloride 101, carbon dioxide 26, BUN 32, creatinine 6, glucose 87, and ca lcium 9.6. ASSESSMENT AND PLAN: 1. Anemia -- secondary to gastrointestinal bleed. She has an arteriovenous malformation and finding of large external hemorrhoid. A surgical consult has been done for possible hemorrhoidectomy with t his patient. We will be avoiding heparin with the dialysis -- p.r.n. blood transfusion. Continue we ekly Epogen. 2. End-stage renal disease, stable. Continue Thursday, Thursday, and Thursday dialysis. Fluid removal again as tolerated. We are using no heparin due to the recent gastrointestinal bleed. Overall, prognosis remains guarded. Recheck base met and CBC in the morning.
--- NOTE | 2017-10-09 10:31 | PDOC.PN ---
- Subjective Encounter Start Date: 10/09/17 Encounter Start Time: 07:50 Patient seen and examined. No new complaints. No overnight events - Objective Resuscitation Status: Resuscitation Status FULL:Full Resuscitation MAR Reviewed: Yes Vital Signs & Weight: Vital Signs (12 hours) Temp Pulse Resp BP BP Pulse Ox 10/09/17 09:08 172/83 H 10/09/17 04:00 98.1 F 88 16 169/85 H 93 L Weight Weight 134 lb 12.8 oz I&O: 10/08/17 10/09/17 10/10/17 06:59 06:59 06:59 Intake Total 1130 480 Output Total 1500 Balance -370 480 Result Diagrams: 10/09/17 05:06 10/09/17 05:06 EKG Reviewed by me: Yes Phys Exam - Physical Examination Constitutional: NAD HEENT: PERRLA, moist MMs, sclera anicteric Neck: no JVD, supple Respiratory: no wheezing, no rales, no rhonchi Cardiovascular: RRR, no significant murmur, no rub Gastrointestinal: soft, non-tender, no distention, positive bowel sounds Musculoskeletal: no edema, pulses present Neurological: non-focal, normal sensation Lymphatic: no nodes Psychiatric: normal affect, A&O x 3 Skin: no rash, normal turgor Dx/Plan (1) Elevated troponin Code(s): R74.8 - ABNORMAL LEVELS OF OTHER SERUM ENZYMES Status: Acute (2) Guaiac positive stools Status: Acute (3) Symptomatic anemia Code(s): D64.9 - ANEMIA, UNSPECIFIED Status: Acute (4) Anemia of renal disease Code(s): D63.1 - ANEMIA IN CHRONIC KIDNEY DISEASE Status: Chronic (5) COPD (chronic obstructive pulmonary disease) Status: Chronic (6) Chronic diastolic (congestive) heart failure Code(s): I50.32 - CHRONIC DIASTOLIC (CONGESTIVE) HEART FAILURE Status: Chronic (7) Dyslipidemia Code(s): E78.5 - HYPERLIPIDEMIA, UNSPECIFIED Status: Chronic (8) ESRD (end stage renal disease) on dialysis Code(s): N18.6 - END STAGE RENAL DISEASE; Z99.2 - DEPENDENCE ON RENAL DIALYSIS Status: Chronic (9) HTN (hypertension) Code(s): I10 - ESSENTIAL (PRIMARY) HYPERTENSION Status: Chronic (10) PVD (peripheral vascular disease) Code(s): I73.9 - PERIPHERAL VASCULAR DISEASE, UNSPECIFIED Status: Chronic (11) Secondary hyperparathyroidism of renal origin Code(s): N25.81 - SECONDARY HYPERPARATHYROIDISM OF RENAL ORIGIN Status: Chronic (12) Erosive gastritis Code(s): K29.60 - OTHER GASTRITIS WITHOUT BLEEDING Status: Acute (13) Bleeding external hemorrhoids Code(s): K64.4 - RESIDUAL HEMORRHOIDAL SKIN TAGS Status: Acute (14) Moderate tricuspid insufficiency Code(s): I07.1 - RHEUMATIC TRICUSPID INSUFFICIENCY Status: Chronic (15) Pulmonary hypertension Code(s): I27.20 - PULMONARY HYPERTENSION, UNSPECIFIED Status: Chronic - Plan cont current plan of care * pt is NPO for surgery * today HD * H & H stable * medication reviewed as below * symptomatic treatment * DC tele * transfer to medical. Review of Systems - Review of Systems ENT: negative: Ear Pain, Ear Discharge, Nose Pain, Nose Discharge, Nose Congestion, Mouth Pain, Mouth Swelling, Throat Pain, Throat Swelling, Other Respiratory: negative: Cough, Dry, Shortness of Breath, Hemoptysis, SOB with Excertion, Pleuritic Pain, Sputum, Wheezing Cardiovascular: negative: chest pain, palpitations, orthopnea, paroxysmal nocturnal dyspnea, edema, light headedness, other Gastrointestinal: Hematochezia. negative: Nausea, Vomiting, Abdominal Pain, Diarrhea, Constipation, Melena, Other Genitourinary: negative: Dysuria, Frequency, Incontinence, Hematuria, Retention , Other Musculoskeletal: negative: Neck Pain, Shoulder Pain, Arm Pain, Back Pain, Hand Pain, Leg Pain, Foot Pain, Other Skin: negative: Rash, Lesions, Neftali, Bruising, Other - Medications/Allergies Allergies/Adverse Reactions: Allergies Allergy/AdvReac Type Severity Reaction Status Date / Time iodine Allergy Severe Verified 02/09/17 22:47 Penicillins Allergy Severe Verified 02/09/17 22:47 Medications: Current Medications Acetaminophen (Tylenol) 650 mg PO Q4H PRN PRN Reason: Headache/Fever or Pain Hydrocodone Bitart/Acetaminophen ([place] 5/325) 1 tab PO Q4H PRN PRN Reason: Moderate Pain (4-6) Al Hydroxide/Mg Hydroxide (Maalox) 30 ml PO Q6H PRN PRN Reason: Heartburn or Indigestion Artificial Tears (Tears Naturale) 0 drop EA EYE PRN PRN PRN Reason: Dry Eyes Atorvastatin Calcium (Lipitor) 40 mg PO [facility] Last Admin: 10/08/17 20:13 Dose: 40 mg Clonidine (Catapres) 0.1 mg PO BID [facility] Last Admin: 10/09/17 09:08 Dose: 0.1 mg Clopidogrel Bisulfate (Plavix) 75 mg PO DAILY [facility] Last Admin: 10/08/17 08:14 Dose: 75 mg Epoetin [place] (Procrit) 10,000 units SC Q7D [facility] Last Admin: 10/06/17 15:57 Dose: Not Given Ferrous Sulfate (Feosol) 325 mg PO QAM[facility] Last Admin: 10/08/17 08:13 Dose: 325 mg Guaifenesin (Robitussin Sf) 200 mg PO Q4H PRN PRN Reason: Cough Hydralazine HCl (Apresoline) 10 mg SLOW IVP Q4H PRN PRN Reason: Systolic BP > 180 Last Admin: 10/08/17 14:05 Dose: 10 mg Levofloxacin 500 mg/ Device 100 mls @ 100 mls/hr IVPB [facility] Stop: 10/09/17 18:31 Last Admin: 10/08/17 18:29 Dose: 100 mls Loperamide HCl (Imodium) 2 mg PO PRN PRN PRN Reason: Diarrhea/Loose Stools Loratadine (Claritin) 10 mg PO DAILYPRN PRN PRN Reason: Sinus Symptoms Losartan Potassium (Cozaar) 100 mg PO [facility] Last Admin: 10/08/17 20:14 Dose: 100 mg Magnesium Hydroxide (Milk Of Magnesium) 30 ml PO DAILYPRN PRN PRN Reason: Constipation Magnesium Hydroxide (Milk Of Magnesium) 30 ml PO DAILYPRN PRN PRN Reason: Constipation Mineral Oil/White Petrolatum (Eucerin Cream) 0 gm TOP BIDPRN PRN PRN Reason: Dry Skin Nitroglycerin (Nitrostat) 0.4 mg SL Q5MIN PRN PRN Reason: Chest Pain Ondansetron HCl (Zofran Odt) 4 mg PO Q6H PRN PRN Reason: Nausea/Vomiting Ondansetron HCl (Zofran) 4 mg IVP Q6H PRN PRN Reason: Nausea/Vomiting Pantoprazole Sodium (Protonix) 40 mg PO BID [facility] Last Admin: 10/09/17 09:09 Dose: 40 mg Phenol (Chloraseptic [place] 180 Ml Bot) 0 ml PO PRN PRN PRN Reason: Sore Throat Senna (Senokot) 2 tab PO HSPRN PRN PRN Reason: Constipation Sevelamer Carbonate (Renvela) 2,400 mg PO TID[facility] Last Admin: 10/08/17 16:40 Dose: 2,400 mg Sodium Chloride ([place] Nasal [place] 0.65%) 0 ml EA NARE QIDPRN PRN PRN Reason: Nasal Congestion Vitamin B Complex/Vit C/Folic Acid (Nephro-Tanika Tablet) 1 tab PO DAILY [facility] Last Admin: 10/08/17 08:14 Dose: 1 tab Zolpidem Tartrate (Ambien) 5 mg PO HSPRN PRN PRN Reason: Insomnia
[2017-10-09] MEDS ORDERED: Lidocaine 1% PF 5 ML VIAL ONE (14:59)
[2017-10-09] MEDS ORDERED: Glycopyrrolate 0.2 MG/ML 5 ML SYRINGE ONE (14:59)
[2017-10-09] MEDS ORDERED: PROPOFOL 200 MG/20 ML VIAL ONE (14:59)
[2017-10-09] MEDS: Ferrous Sulfate 325 MG TAB PO SCH (15:50)
[2017-10-09] MEDS: Clopidogrel Bisulfate 75 MG TAB PO SCH (15:50)
[2017-10-09] MEDS: Sevelamer Carbonate 800 MG TAB PO SCH ×2 (15:50→16:20)
[2017-10-09] MEDS: Folic Acid/Vit B Comp W-C PO SCH (15:51)
[2017-10-09] MEDS ORDERED: cloNIDine 0.1 MG TAB PO SCH (16:15)
[2017-10-09] MEDS ORDERED: Bupivacaine HCl 0.5%/Epinephrine 1:200,000/PF 30 ml Vial ONE (19:15)
[2017-10-09] MEDS ORDERED: Lidocaine 2% Jelly 5 ML TUBE ONE (19:15)
[2017-10-09] MEDS ORDERED: Fentanyl 250 MCG/5 ML VIAL ONE ×2 (19:27→21:16)
[2017-10-09] MEDS ORDERED: Midazolam HCl 2 mg/2 ml Vial ONE (19:27)
[2017-10-09] MEDS ORDERED: HYDROmorphone 0.5 MG/0.5 ML SYRINGE ONE (19:27)
[2017-10-09] MEDS ORDERED: metroNIDAZOLE 500 MG/100 ML BAG ONE (19:50)
[2017-10-09] MEDS ORDERED: Levofloxacin 500 mg/D5W 100 ml Premix Bag ONE (19:50)
[2017-10-09] MEDS ORDERED: SUGAMMADEX SODIUM 200 MG/2 ML VIAL ONE (20:58)
[2017-10-09] MEDS ORDERED: Ondansetron HCl/PF 4 MG/2 ML Vial IVP PRN (21:17)
[2017-10-09] MEDS ORDERED: Citrucel 500 MG TAB PO SCH (23:15)
[2017-10-09] MEDS ORDERED: Sodium Chloride 0.9% 500 ML IV SCH (23:30)
[2017-10-09] MEDS: Acetaminophen 500 MG TAB PO PRN (23:39)
[2017-10-09] MEDS: Losartan 25 MG TAB PO SCH (23:43)
[2017-10-09] MEDS: cloNIDine 0.2 MG TAB PO SCH (23:44)
[2017-10-09] MEDS: Atorvastatin Calcium 40 MG TAB PO SCH (23:44)
--- NOTE | 2017-10-10 01:21 | PDOC.EVN ---
Event Note - Event Note Event Note: Code green was called - Pt hypotensive/lethargic with bleeding from surgical site. Will cont IVF bolus. 2 units PRBC ordered by Dr Zhang. s/p 0.4 Narcan - More awake. Will cont to monitor
[2017-10-10 01:32] LABS: Hemoglobin 5.7 g/dL (12.0-16.0)
[2017-10-10] MEDS ORDERED: Fentanyl 250 MCG/5 ML VIAL ONE ×2 (03:04→05:15)
[2017-10-10] MEDS ORDERED: Lidocaine 2% Jelly 5 ML TUBE ONE (03:11)
[2017-10-10] MEDS ORDERED: Bupivacaine HCl 0.5%/Epinephrine 1:200,000/PF 30 ml Vial ONE (03:12)
[2017-10-10] MEDS ORDERED: Promethazine HCl 25 MG/ML VIAL SLOW IVP PRN (05:09)
[2017-10-10] MEDS ORDERED: Promethazine HCl 25 MG/ML VIAL IM PRN (05:09)
[2017-10-10] MEDS ORDERED: Ondansetron HCl/PF 4 MG/2 ML Vial IVP PRN (05:09)
--- NOTE | 2017-10-10 05:17 | OP ---
DATE OF PROCEDURE: 10/10/2017 PREOPERATIVE DIAGNOSES: Post-stapled hemorrhoidectomy and excision of internal hemorrhoid prolapse, bleeding, end-stage renal disease, hepatitis C or hepatitis B. POSTOPERATIVE DIAGNOSES: Post-stapled hemorrhoidectomy and excision of internal hemorrhoid prolapse, bleeding, end-stage renal disease, hepatitis C or hepatitis B. PROCEDURE: Exam under anesthesia, ligation of postoperative bleeding sites with staple line. SURGEON: Jordi Zhang M.D. ANESTHESIA: General. PROCEDURE IN DETAIL: The patient taken to the operating room where under general anesthesia in the d orsal lithotomy position. Perianal area and buttocks prepared with Betadine, draped in routine fashi on. [place] retractor inserted. Posterior staple line appeared to be tear. There was bleedin g at the site. Interrupted [id number] sutures of 3-0 chromic placed with difficulty due to the angle and depth. Hemostasis obtained. Gelfoam dressing applied. The patient tolerated the procedur e well and was transferred to the recovery room or intensive care unit or IMC unit.
[2017-10-10] MEDS ORDERED: Naloxone HCl 0.4 mg/ml Vial IV SCH (07:00)
--- NOTE | 2017-10-10 07:08 | OP ---
DATE OF OPERATION: 10/10/2017 PREOPERATIVE DIAGNOSIS: Post-hemorrhoidectomy bleeding/shock, end-stage renal disease, poor IV acces s. POSTOPERATIVE DIAGNOSIS: Post-hemorrhoidectomy bleeding/shock, end-stage renal disease, poor IV acce ss. PROCEDURES: Right femoral vein triple lumen catheter. SURGEON: Jordi Zhang M.D. ANESTHESIA: 1% Xylocaine. INDICATIONS: The patient had a PPH stapled hemorrhoidectomy and excision of large hemorrhoid complex . She has end-stage renal disease. She experienced postoperative bleeding. By the time I arrived i [facility], Medical had asked the dialysis team to access her left forearm dialysis graft for IV access f or blood administration; she was given 1 unit of blood and as I arrived in the room about to start . Right groin was prepared with ChloraPrep, draped in routine fashion. A 1% Xylocaine infil trated in the skin and subcutaneous tissue. Seldinger technique used to place a triple lumen cathete r in the right femoral vein, removing the J-wire, securing the catheter with 3-0 silk. Biopatch ster ile dressing applied. Each port aspirated blood and flushed with saline solution. The patient's leona lysis access left forearm was decannulated and blood infused to the central line instead and she was transferred to the operating room for definitive control and exploration of her postoperative hemorrh oidectomy bleeding.
--- NOTE | 2017-10-10 07:08 | OP ---
DATE OF SERVICE: 04/22/2018 PREOPERATIVE DIAGNOSES: Severe anemia, prolapsed bleeding hemorrhoids, grade 4. POSTOPERATIVE DIAGNOSES: Severe anemia, prolapsed bleeding hemorrhoids., grade 4. PROCEDURE: PPH stapled hemorrhoidectomy, excision of anterior large hemorrhoidal prolapsing complex. SURGEON: Dr. Zhang. ANESTHESIA: General. Local 0.5% Marcaine with epinephrine, 10 mL PROCEDURE: The patient was taken to the operating room where under general anesthesia in the prone p osition, perianal area and buttocks prepared with Betadine, draped in routine fashion. There was pro lapsed hemorrhoids anteriorly. Speculum placed in the anus, dilating the anus. The obturator workin g port placed in the anus. Working port was secured with four quadrant sutures of 2-0 silk. Suture placement device was placed and pursestring suture of 2-0 Prolene placed circumferentially and then t he suture placement device removed and the hemorrhoidal stapler inserted and sutures tightened around the post and brought out through the side holes and air knot tied and tied around the post and the h emorrhoidal stapler approximated within the torque fire range and the hemorrhoid stapler fired, excis ed in a circumferential ring of hemorrhoids, which were submitted to pathology. With the cautery, go od hemostasis noted. There was a persistently prolapsing anterior hemorrhoid complex excised with ap ical suture of 3-0 chromic placed and then excised using the LigaSure. This was submitted to Patholo gy. Wound closed with continuous lock suture of 3-0 chromic. Good hemostasis noted. Local anesthet ic infiltrated in this area. Gelfoam roll and Xylocaine jelly placed along with peripad. The patien t tolerated the procedure well.
[2017-10-10 08:09] LABS: #Lymphocytes 0.4 thou/uL (1.20-3.40); #Monocytes 0.6 thou/uL (0.11-0.59); #Neutrophils 8.1 thou/uL (1.40-6.50); %Basophils 0.2 % (0.0-1.0); %Eosinophils 0.1 % (0.0-10.0); %Lymphocytes 4.2 % (21.0-51.0); %Monocytes 6.1 % (0.0-10.0); %Neutrophils 89.3 % (42.0-75.0); Hemoglobin 7.4 g/dL (12.0-16.0); Mean Corpuscular HGB CONC 34.6 g/dL (32.0-36.0); Mean Corpuscular Hemoglobin 31.7 pg (27.0-31.0); Mean Corpuscular Volume 91.6 fl (81.0-99.0); Mean Platelet Volume 7.1 fL (7.4-10.4); Platelet Count 124 thou/uL (130-400); RBC Distribution Width 15.2 % (11.5-14.5); Red Blood Cell (RBC) Count 2.34 mill/uL (4.20-5.40)
[2017-10-10 08:14] LABS: Anion Gap 14 mmol/L (10-20); BUN (Urea Nitrogen) 27 mg/dL (9.8-20.1); Calc. Creatinine Clearance 11 mL/min (70-130); Calcium 8.1 mg/dL (7.8-10.44); Carbon Dioxide 24 mmol/L (23-31); Chloride 106 mmol/L (98-107); Estimated GFR-MDRD 9; Glucose 144 mg/dL (80-115); Potassium 4.2 mmol/L (3.5-5.1); Sodium 140 mmol/L (136-145)
[2017-10-10] MEDS: Sevelamer Carbonate 800 MG TAB PO SCH ×3 (09:03→18:06)
[2017-10-10] MEDS: cloNIDine 0.2 MG TAB PO SCH ×2 (09:04→20:02)
[2017-10-10] MEDS: Polyethylene Glycol 3350 17 GM Packet PO SCH (09:04)
[2017-10-10] MEDS: Folic Acid/Vit B Comp W-C PO SCH (09:04)
[2017-10-10] MEDS: Ferrous Sulfate 325 MG TAB PO SCH (09:04)
[2017-10-10] MEDS: Clopidogrel Bisulfate 75 MG TAB PO SCH (09:05)
[2017-10-10] MEDS: Citrucel 500 MG TAB PO SCH ×2 (09:18→21:00)
--- NOTE | 2017-10-10 09:58 | PDOC.PN ---
- Subjective Encounter Start Date: 10/10/17 Encounter Start Time: 09:30 pt had haemorrhoid surgery yesterday, last night she had code green for hypotension, she was bleeding profusely at surgical site, she had HD and 2 unit PRBC give, pt was taken to OR and central line placed, again 2 unit was transfused at OR, after that she is receiving 1 more unit PRBC, she was hypotensive initially but after transfusion, her BP is now stable - Objective Resuscitation Status: Resuscitation Status FULL:Full Resuscitation MAR Reviewed: Yes Vital Signs & Weight: Vital Signs (12 hours) Temp Pulse Pulse Pulse Pulse Pulse Pulse 10/10/17 09:04 10/10/17 07:48 96.2 F L 80 10/10/17 07:38 96.2 F L 80 10/10/17 07:35 10/10/17 07:34 83 10/10/17 02:48 79 10/10/17 02:00 10/10/17 00:53 88 86 106 H 106 H 102 H 10/10/17 00:00 96.7 F L 135 H 10/09/17 23:44 10/09/17 23:00 97.6 F 79 Pulse Pulse Resp Resp Resp Resp Resp 10/10/17 09:04 10/10/17 07:48 22 H 10/10/17 07:38 22 H 10/10/17 07:35 10/10/17 07:34 20 10/10/17 02:48 18 10/10/17 02:00 10/10/17 00:53 94 95 16 20 16 20 10/10/17 00:00 20 10/09/17 23:44 10/09/17 23:00 18 Resp Resp Resp BP BP BP BP 10/10/17 09:04 87/53 L 10/10/17 07:48 10/10/17 07:38 10/10/17 07:35 10/10/17 07:34 10/10/17 02:48 10/10/17 02:00 10/10/17 00:53 24 H 20 20 62/44 L 60/39 L 69/45 L 10/10/17 00:00 10/09/17 23:44 87/53 L 10/09/17 23:00 BP BP BP BP BP Pulse Ox Pulse Ox 10/10/17 09:04 10/10/17 07:48 95 03/10/18 07:38 87/36 L 94 L 10/10/17 07:35 99 10/10/17 07:34 99 10/10/17 02:48 100 10/10/17 02:00 98 10/10/17 00:53 94/58 L 83/48 L 104/59 L 106/59 L 100 10/10/17 00:00 74/65 L 99 10/09/17 23:44 10/09/17 23:00 88/49 L 98 Pulse Ox Pulse Ox Pulse Ox Pulse Ox Pulse Ox Pulse Ox 10/10/17 09:04 10/10/17 07:48 10/10/17 07:38 10/10/17 07:35 10/10/17 07:34 10/10/17 02:48 10/10/17 02:00 10/10/17 00:53 100 100 100 100 100 100 10/10/17 00:00 10/09/17 23:44 10/09/17 23:00 Weight Weight 147 lb I&O: 10/09/17 10/10/17 10/11/17 06:59 06:59 07:59 Intake Total 480 4460 Output Total 350 Balance 480 4110 Result Diagrams: 10/10/17 07:10 10/10/17 07:10 EKG Reviewed by me: Yes (nsr) Phys Exam - Physical Examination Constitutional: NAD HEENT: PERRLA, moist MMs, sclera anicteric Neck: no JVD, supple Respiratory: no wheezing, no rales, no rhonchi Cardiovascular: RRR, no significant murmur, no rub Gastrointestinal: soft, non-tender, no distention, positive bowel sounds Musculoskeletal: no edema, pulses present Neurological: moves all 4 limbs Lymphatic: no nodes Psychiatric: normal affect Skin: no rash, normal turgor Dx/Plan (1) Anemia due to acute blood loss Code(s): D62 - ACUTE POSTHEMORRHAGIC ANEMIA Status: Acute (2) Hypotension due to blood loss Code(s): I95.89 - OTHER HYPOTENSION Status: Acute (3) Elevated troponin Code(s): R74.8 - ABNORMAL LEVELS OF OTHER SERUM ENZYMES Status: Acute Comment: demand ischemia (4) Guaiac positive stools Status: Acute (5) Symptomatic anemia Code(s): D64.9 - ANEMIA, UNSPECIFIED Status: Acute (6) Anemia of renal disease Code(s): D63.1 - ANEMIA IN CHRONIC KIDNEY DISEASE Status: Chronic (7) COPD (chronic obstructive pulmonary disease) Status: Chronic (8) Chronic diastolic (congestive) heart failure Code(s): I50.32 - CHRONIC DIASTOLIC (CONGESTIVE) HEART FAILURE Status: Chronic (9) Dyslipidemia Code(s): E78.5 - HYPERLIPIDEMIA, UNSPECIFIED Status: Chronic (10) ESRD (end stage renal disease) on dialysis Code(s): N18.6 - END STAGE RENAL DISEASE; Z99.2 - DEPENDENCE ON RENAL DIALYSIS Status: Chronic (11) HTN (hypertension) Code(s): I10 - ESSENTIAL (PRIMARY) HYPERTENSION Status: Chronic (12) PVD (peripheral vascular disease) Code(s): I73.9 - PERIPHERAL VASCULAR DISEASE, UNSPECIFIED Status: Chronic (13) Secondary hyperparathyroidism of renal origin Code(s): N25.81 - SECONDARY HYPERPARATHYROIDISM OF RENAL ORIGIN Status: Chronic (14) Erosive gastritis Code(s): K29.60 - OTHER GASTRITIS WITHOUT BLEEDING Status: Acute (15) Bleeding external hemorrhoids Code(s): K64.4 - RESIDUAL HEMORRHOIDAL SKIN TAGS Status: Acute (16) Moderate tricuspid insufficiency Code(s): I07.1 - RHEUMATIC TRICUSPID INSUFFICIENCY Status: Chronic (17) Pulmonary hypertension Code(s): I27.20 - PULMONARY HYPERTENSION, UNSPECIFIED Status: Chronic - Plan cont current plan of care * will monitor H & H and transfuse as needed * close monitoring in IMCU * medication reviewed as below * symptomatic treatment * post operative care as per surgeon * HD as per nephrology * Hold BP meds for low BP. Review of Systems - Review of Systems Eyes: negative: Pain, Vision Change, Conjunctivae Inflammation, Eyelid Inflammation, Redness, Other ENT: negative: Ear Pain, Ear Discharge, Nose Pain, Nose Discharge, Nose Congestion, Mouth Pain, Mouth Swelling, Throat Pain, Throat Swelling, Other Respiratory: negative: Cough, Dry, Shortness of Breath, Hemoptysis, SOB with Excertion, Pleuritic Pain, Sputum, Wheezing Cardiovascular: negative: chest pain, palpitations, orthopnea, paroxysmal nocturnal dyspnea, edema, light headedness, other Genitourinary: negative: Dysuria, Frequency, Incontinence, Hematuria, Retention , Other Skin: negative: Rash, Lesions, Neftali, Bruising, Other - Medications/Allergies Allergies/Adverse Reactions: Allergies Allergy/AdvReac Type Severity Reaction Status Date / Time iodine Allergy Severe Verified 02/09/17 22:47 Penicillins Allergy Severe Verified 02/09/17 22:47 Medications: Current Medications Acetaminophen (Tylenol) 650 mg PO Q4H PRN PRN Reason: Headache/Fever or Pain Acetaminophen (Tylenol) 1,000 mg PO Q6H PRN PRN Reason: Moderate to Severe Pain (6-10) Last Admin: 10/09/17 23:39 Dose: 1,000 mg Hydrocodone Bitart/Acetaminophen ([place] 5/325) 1 tab PO Q4H PRN PRN Reason: Moderate Pain (4-6) Al Hydroxide/Mg Hydroxide (Maalox) 30 ml PO Q6H PRN PRN Reason: Heartburn or Indigestion Albuterol/Ipratropium (Duoneb) 3 ml NEB Q2H PRN PRN Reason: SOB &/or Wheezing Albuterol/Ipratropium (Duoneb) 3 ml NEB [id number] [facility] Stop: 10/10/17 12:00 Last Admin: 10/10/17 07:34 Dose: 3 ml Artificial Tears (Tears Naturale) 0 drop EA EYE PRN PRN PRN Reason: Dry Eyes Atorvastatin Calcium (Lipitor) 40 mg PO HS [facility] Last Admin: 10/09/17 23:44 Dose: Not Given Clonidine (Catapres) 0.2 mg PO BID [facility] Last Admin: 10/10/17 09:04 Dose: Not Given Clopidogrel Bisulfate (Plavix) 75 mg PO DAILY [facility] Last Admin: 10/10/17 09:05 Dose: Not Given Epoetin [place] (Procrit) 10,000 units SC Q7D [facility] Last Admin: 10/06/17 15:57 Dose: Not Given Ferrous Sulfate (Feosol) 325 mg PO QAM-[facility] Last Admin: 10/10/17 09:04 Dose: 325 mg Guaifenesin (Robitussin Sf) 200 mg PO Q4H PRN PRN Reason: Cough Hydralazine HCl (Apresoline) 10 mg SLOW IVP Q4H PRN PRN Reason: Systolic BP > 180 Last Admin: 10/08/17 14:05 Dose: 10 mg Loperamide HCl (Imodium) 2 mg PO PRN PRN PRN Reason: Diarrhea/Loose Stools Loratadine (Claritin) 10 mg PO DAILYPRN PRN PRN Reason: Sinus Symptoms Losartan Potassium (Cozaar) 100 mg PO [facility] Last Admin: 10/09/17 23:43 Dose: Not Given Magnesium Hydroxide (Milk Of Magnesium) 30 ml PO DAILYPRN PRN PRN Reason: Constipation Magnesium Hydroxide (Milk Of Magnesium) 30 ml PO DAILYPRN PRN PRN Reason: Constipation Methylcellulose (Citrucel) 500 mg PO BID [facility] Last Admin: 10/10/17 09:18 Dose: 500 mg Mineral Oil/White Petrolatum (Eucerin Cream) 0 gm TOP BIDPRN PRN PRN Reason: Dry Skin Morphine Sulfate (Morphine Sulfate) 4 mg SLOW IVP Q2H PRN PRN Reason: Pain Nitroglycerin (Nitrostat) 0.4 mg SL Q5MIN PRN PRN Reason: Chest Pain Ondansetron HCl (Zofran Odt) 4 mg PO Q6H PRN PRN Reason: Nausea/Vomiting Ondansetron HCl (Zofran) 4 mg IVP Q6H PRN PRN Reason: Nausea/Vomiting Pantoprazole Sodium (Protonix) 40 mg PO BID [facility] Last Admin: 10/10/17 09:04 Dose: 40 mg Phenol (Chloraseptic [place] 180 Ml Bot) 0 ml PO PRN PRN PRN Reason: Sore Throat Polyethylene Glycol (Miralax) 17 gm PO DAILY [facility] Last Admin: 10/10/17 09:04 Dose: 17 gm Senna (Senokot) 2 tab PO HSPRN PRN PRN Reason: Constipation Sevelamer Carbonate (Renvela) 2,400 [address] TID-[facility] Last Admin: 10/10/17 09:03 Dose: 2,400 mg Sodium Chloride ([place] Nasal [place] 0.65%) 0 ml EA NARE QIDPRN PRN PRN Reason: Nasal Congestion Vitamin B Complex/Vit C/Folic Acid (Nephro-Tanika Tablet) 1 tab PO DAILY [facility] Last Admin: 10/10/17 09:04 Dose: 1 tab Zolpidem Tartrate (Ambien) 5 mg PO HSPRN PRN PRN Reason: Insomnia
--- NOTE | 2017-10-10 11:32 | PRG ---
DATE OF SERVICE: 10/10/2017 SERVICE: Renal Medicine. SUBJECTIVE: Ms. Sullivan is a 62-year-old black female with ESRD and currently maintenance hemodialysi s. She underwent hemorrhoidectomy yesterday afternoon. However, this was marred by recurrent bleedi ng. She was brought back to the OR early this morning for stapling and hemostasis of the bleeding at the surgical site. This morning, she is feeling better. She underwent emergent hemodialysis for bl ood transfusion last night. However, we were only able to do 40 minutes of dialysis. I examined the patient this morning. I feel we can hold off dialysis at the present time. No other complaints. S he feels tired. OBJECTIVE: VITAL SIGNS: Blood pressure is 87/53-91/70, heart rate 80, respiratory rate 20, temperature 96.2 and pulse ox 95%. GENERAL: Awake, lethargic and not in distress. SKIN: Adequate turgor. HEENT: Slightly pale conjunctivae, anicteric sclerae. NECK: No neck mass, no carotid bruits, no JVD. CHEST: No deformities. LUNGS: Clear breath sounds. No wheezing, no crackles. HEART: Normal sinus rhythm. No murmur, no gallops, no rubs. ABDOMEN: Globular, soft and nontender. No masses. EXTREMITIES: No edema, no deformities. MEDICATIONS: Medications of 10/10/2017 reviewed. LABORATORY DATA: Laboratories of 10/10/2017, reviewed. Potassium was 4.2 and creatinine 5.62. Whit e count 9 and hemoglobin 7.4. ASSESSMENT AND PLAN: 1. Rectal bleeding secondary to post-surgery - much improved, status post transfusion of 5 units of blood. Doing well. 2. End-stage renal disease, stable. No indication for any emergent hemodialysis this morning. We w ill reevaluate the patient again in a.m. if she will need dialysis. Continue supportive care. Reche ck base met and CBC in a.m.
[2017-10-10 12:26] LABS: #Lymphocytes 0.8 thou/uL (1.20-3.40); #Monocytes 0.5 thou/uL (0.11-0.59); #Neutrophils 5.6 thou/uL (1.40-6.50); %Basophils 0.1 % (0.0-1.0); %Eosinophils 0.2 % (0.0-10.0); %Lymphocytes 11.2 % (21.0-51.0); %Monocytes 7.4 % (0.0-10.0); %Neutrophils 81.2 % (42.0-75.0); Hemoglobin 8.5 g/dL (12.0-16.0); Mean Corpuscular HGB CONC 34.8 g/dL (32.0-36.0); Mean Corpuscular Hemoglobin 31.3 pg (27.0-31.0); Mean Platelet Volume 7.3 fL (7.4-10.4); Platelet Count 104 thou/uL (130-400); RBC Distribution Width 15.1 % (11.5-14.5); White Blood Cell (WBC) Count 6.9 thou/uL (4.8-10.8)
[2017-10-10 13:07] LABS: Actual Bicarbonate (HCO3a) 24.9 mEq/L (22-26); Base Excess (BEa) -0.2 mEq/L (0 (+/-) 2.5); Hematocrit-ABG 23.6 % (36.0-47.0); Hemoglobin (Hb) 7.8 g/dL (12.0-16.0); O2 Tension (PaO2) 59.2 mmHg (80.0-100.0); pH, Arterial 7.38 (7.35-7.45)
[2017-10-10 13:08] LABS: Calcium, Ionized 1.2 mmol/L (1.12-1.30); Puncture Site RBA
--- NOTE | 2017-10-10 15:03 | EKG ---
Test Reason : CP' Blood Pressure : / mmHG Vent. Rate : 083 BPM Atrial Rate : 083 BPM P-R Int : 162 ms QRS Dur : 078 ms QT Int : 426 ms P-R-T Axes : 056 -05 069 degrees QTc Int : 500 ms Sinus rhythm with occasional Premature ventricular complexes Prolonged QT Abnormal ECG Confirmed by FAMILIA SAUER ([id number]), subeditor TAMMI MEZA ([id number]) on 10/10/2017 3:02:32 PM Referred By: Confirmed By:FAMILIA SAUER
--- NOTE | 2017-10-10 16:34 | PRG ---
DATE OF SERVICE: 10/10/2017 SUBJECTIVE: Dai Sullivan is in IMCU. She is doing well this morning with slightly low blood pressur e. OBJECTIVE: VITAL SIGNS: Temperature 98.1 degrees, heart rate 93, sat 94%. Blood pressures in the 80s and 90s. She is normally hypertensive. She was given a fluid bolus. Basic metabolic profile is normal for e nd-stage renal disease status. Glucose is 144. LUNGS: Clear to auscultation. CARDIAC: Regular rate and rhythm. No murmur or gallop. ABDOMEN: Soft. Perianal area looks clean. She is not having any bleeding than she was before. ASSESSMENT AND PLAN: Hypertension and anemia. Plan transfusion of one more unit of blood today. We will check her evening hemoglobin and his CBC tomorrow. Patient is normally hypertensive and needs another unit of blood.
[2017-10-10] MEDS ORDERED: PHENYLEPHRINE-NS 100 MCG/ML 10 ML SYRINGE ONE (16:58)
[2017-10-10] MEDS ORDERED: Succinylcholine Chloride 20 MG/ML 10 ml SYRINGE FS ONE (16:58)
[2017-10-10] MEDS: Acetaminophen 500 MG TAB PO PRN (17:46)
[2017-10-10] MEDS: Losartan 25 MG TAB PO SCH (20:59)
[2017-10-10] MEDS: Atorvastatin Calcium 40 MG TAB PO SCH (21:00)
[2017-10-10 22:47] LABS: #Lymphocytes 0.9 thou/uL (1.20-3.40); #Monocytes 0.5 thou/uL (0.11-0.59); #Neutrophils 5.1 thou/uL (1.40-6.50); %Basophils 0.4 % (0.0-1.0); %Eosinophils 0.2 % (0.0-10.0); %Lymphocytes 13.3 % (21.0-51.0); %Monocytes 8.1 % (0.0-10.0); Hemoglobin 8.6 g/dL (12.0-16.0); Mean Corpuscular HGB CONC 34.1 g/dL (32.0-36.0); Mean Corpuscular Volume 87.9 fl (81.0-99.0); Mean Platelet Volume 7.9 fL (7.4-10.4); Platelet Count 105 thou/uL (130-400); Red Blood Cell (RBC) Count 2.86 mill/uL (4.20-5.40); White Blood Cell (WBC) Count 6.5 thou/uL (4.8-10.8)
--- NOTE | 2017-10-11 | CON ---
DATE OF CONSULTATION: 10/10/2017 HISTORY OF PRESENT ILLNESS: Ms. Sullivan is a 62-year-old female on dialysis. She had hemorrhoidal bleed, had a rough night with multiple procedures required to control her hemorrhoidal bleeding. PAST MEDICAL AND SURGICAL HISTORY: Remarkable for, 1. Cholecystectomy. 2. Vascular access procedures. 3. Coronary artery stenting. 4. EGD. 5. Colonoscopy. 6. History of hepatitis C with interferon treatment. 7. History of hypertension. 8. History of lipid disorder. 9. History of hyperparathyroidism. SOCIAL HISTORY: She smokes. She is not a daily drinker. FAMILY HISTORY: Non contributory ALLERGIES: She reports IODINE and PENICILLIN allergies. REVIEW OF SYSTEMS: A 12-point review of systems is negative except for complaints of that were pertained to her rectum. PHYSICAL EXAMINATION: GENERAL: Patient is ESRD VITAL SIGNS: She is afebrile, heart rate is 93, respiratory rates in the teens , oximetry is 94% on room air. HEENT: Pupils were equal. NECK: Supple, no lymphadenopathy. LUNGS: Clear. HEART: Regular rhythm, no S3. ABDOMEN: Soft and nontender. GENITOURINARY: She has some old blood on a towel around her rectum, but she is not bleeding at the time of my evaluation this morning. She dropped her blood pressure this afternoon and blood has been ordered by Dr. Zhang. She responded to 500 mL saline infusion. LABORATORY DATA: Her hemoglobin was 8.5 at noon, a blood gas showed a normal pH with a hemoglobin of 7.8. IMPRESSION: 1. Hemorrhoidal bleeding. 2. End-stage renal disease. She is clinically stable. If she starts bleeding again, she probably needs to be moving into the Critical Care Unit. This is a 70 minutes consult in which 50 % of the time was spent coordinating care on the unit. NISSA
[2017-10-11] MEDS: HYDROcodone/Acetaminophen 5/325 mg Tablet PO PRN ×4 (00:38→23:09)
[2017-10-11 04:47] LABS: #Lymphocytes 0.6 thou/uL (1.20-3.40); #Monocytes 0.4 thou/uL (0.11-0.59); #Neutrophils 4.3 thou/uL (1.40-6.50); %Eosinophils 0.6 % (0.0-10.0); %Lymphocytes 11.5 % (21.0-51.0); Hemoglobin 8.1 g/dL (12.0-16.0); Mean Corpuscular HGB CONC 34.3 g/dL (32.0-36.0); Mean Corpuscular Hemoglobin 30.9 pg (27.0-31.0); Mean Corpuscular Volume 90.3 fl (81.0-99.0); Mean Platelet Volume 7.2 fL (7.4-10.4); Platelet Count 97 thou/uL (130-400); RBC Distribution Width 16.7 % (11.5-14.5); Red Blood Cell (RBC) Count 2.62 mill/uL (4.20-5.40); White Blood Cell (WBC) Count 5.3 thou/uL (4.8-10.8)
[2017-10-11] MEDS: Ferrous Sulfate 325 MG TAB PO SCH (07:43)
[2017-10-11] MEDS: Polyethylene Glycol 3350 17 GM Packet PO SCH (07:45)
[2017-10-11] MEDS: Folic Acid/Vit B Comp W-C PO SCH (07:45)
[2017-10-11] MEDS: cloNIDine 0.2 MG TAB PO SCH ×2 (07:45→20:26)
[2017-10-11] MEDS: Clopidogrel Bisulfate 75 MG TAB PO SCH (07:45)
[2017-10-11] MEDS: Sevelamer Carbonate 800 MG TAB PO SCH ×3 (07:46→17:49)
[2017-10-11] MEDS: Citrucel 500 MG TAB PO SCH ×2 (07:46→20:27)
--- NOTE | 2017-10-11 09:34 | PDOC.PN ---
- Subjective Encounter Start Date: 10/11/17 Encounter Start Time: 09:10 pt has rectal pain from packing, was hypotensive last night, this morning BP better, no further bleeding has fever this morning - Objective Resuscitation Status: Resuscitation Status FULL:Full Resuscitation MAR Reviewed: Yes Vital Signs & Weight: Vital Signs (12 hours) Temp Pulse Resp BP BP Pulse Ox 10/11/17 07:51 98.2 F 106 H 22 H 96 10/11/17 07:45 87/53 L 10/11/17 07:41 98.2 F 106 H 22 H 130/57 L 90 L 10/11/17 06:45 96 10/11/17 05:05 100.3 F H 104 H 97/58 L 91 L 10/11/17 00:46 99.6 F 95 115/52 L 100 10/10/17 20:59 99.0 F 103 H 103/68 100 Weight Weight 147 lb I&O: 10/10/17 10/11/17 10/12/17 05:59 06:59 06:59 Intake Total Output Total Balance Result Diagrams: 10/11/17 04:42 10/10/17 07:10 EKG Reviewed by me: Yes (nsr) Phys Exam - Physical Examination Constitutional: NAD HEENT: PERRLA, moist MMs, sclera anicteric Neck: no JVD, supple Respiratory: no wheezing, no rales, no rhonchi reduced air entry at base Cardiovascular: RRR, no significant murmur, no rub Gastrointestinal: soft, non-tender, no distention, positive bowel sounds Musculoskeletal: no edema, pulses present Neurological: non-focal, normal sensation, moves all 4 limbs Lymphatic: no nodes Psychiatric: normal affect Skin: no rash, normal turgor Dx/Plan (1) Anemia due to acute blood loss Code(s): D62 - ACUTE POSTHEMORRHAGIC ANEMIA Status: Acute (2) Hypotension due to blood loss Code(s): I95.89 - OTHER HYPOTENSION Status: Acute (3) Elevated troponin Code(s): R74.8 - ABNORMAL LEVELS OF OTHER SERUM ENZYMES Status: Acute Comment: demand ischemia (4) Guaiac positive stools Status: Acute (5) Symptomatic anemia Code(s): D64.9 - ANEMIA, UNSPECIFIED Status: Acute (6) Anemia of renal disease Code(s): D63.1 - ANEMIA IN CHRONIC KIDNEY DISEASE Status: Chronic (7) COPD (chronic obstructive pulmonary disease) Status: Chronic (8) Chronic diastolic (congestive) heart failure Code(s): I50.32 - CHRONIC DIASTOLIC (CONGESTIVE) HEART FAILURE Status: Chronic (9) Dyslipidemia Code(s): E78.5 - HYPERLIPIDEMIA, UNSPECIFIED Status: Chronic (10) ESRD (end stage renal disease) on dialysis Code(s): N18.6 - END STAGE RENAL DISEASE; Z99.2 - DEPENDENCE ON RENAL DIALYSIS Status: Chronic (11) HTN (hypertension) Code(s): I10 - ESSENTIAL (PRIMARY) HYPERTENSION Status: Chronic (12) PVD (peripheral vascular disease) Code(s): I73.9 - PERIPHERAL VASCULAR DISEASE, UNSPECIFIED Status: Chronic (13) Secondary hyperparathyroidism of renal origin Code(s): N25.81 - SECONDARY HYPERPARATHYROIDISM OF RENAL ORIGIN Status: Chronic (14) Erosive gastritis Code(s): K29.60 - OTHER GASTRITIS WITHOUT BLEEDING Status: Acute (15) Bleeding external hemorrhoids Code(s): K64.4 - RESIDUAL HEMORRHOIDAL SKIN TAGS Status: Acute (16) Moderate tricuspid insufficiency Code(s): I07.1 - RHEUMATIC TRICUSPID INSUFFICIENCY Status: Chronic (17) Pulmonary hypertension Code(s): I27.20 - PULMONARY HYPERTENSION, UNSPECIFIED Status: Chronic - Plan cont current plan of care, continue antibiotics * start IV levaquin and flagyl * monitor vitals, if BP stable, then will consider transfer later today * medication reviewed as below * symptomatic treatment * pain meds * hold BP meds today * HD as per nephrology * surgeon following. Review of Systems - Review of Systems Constitutional: fever, weakness. negative: chills, sweats, malaise, other ENT: negative: Ear Pain, Ear Discharge, Nose Pain, Nose Discharge, Nose Congestion, Mouth Pain, Mouth Swelling, Throat Pain, Throat Swelling, Other Respiratory: negative: Cough, Dry, Shortness of Breath, Hemoptysis, SOB with Excertion, Pleuritic Pain, Sputum, Wheezing Cardiovascular: negative: chest pain, palpitations, orthopnea, paroxysmal nocturnal dyspnea, edema, light headedness, other Gastrointestinal: Other (rectal pain). negative: Nausea, Vomiting, Abdominal Pain, Diarrhea, Constipation, Melena, Hematochezia Genitourinary: negative: Dysuria, Frequency, Incontinence, Hematuria, Retention , Other Musculoskeletal: negative: Neck Pain, Shoulder Pain, Arm Pain, Back Pain, Hand Pain, Leg Pain, Foot Pain, Other Skin: negative: Rash, Lesions, Neftali, Bruising, Other - Medications/Allergies Allergies/Adverse Reactions: Allergies Allergy/AdvReac Type Severity Reaction Status Date / Time iodine Allergy Severe Verified 02/09/17 22:47 Penicillins Allergy Severe Verified 02/09/17 22:47 Medications: Current Medications Acetaminophen (Tylenol) 650 mg PO Q4H PRN PRN Reason: Headache/Fever or Pain Acetaminophen (Tylenol) 1,000 mg PO Q6H PRN PRN Reason: Moderate to Severe Pain (6-10) Last Admin: 10/10/17 17:46 Dose: 1,000 mg Hydrocodone Bitart/Acetaminophen ([place] 5/325) 1 tab PO Q4H PRN PRN Reason: Moderate Pain (4-6) Last Admin: 10/11/17 07:43 Dose: 1 tab Al Hydroxide/Mg Hydroxide (Maalox) 30 ml PO Q6H PRN PRN Reason: Heartburn or Indigestion Albuterol/Ipratropium (Duoneb) 3 ml NEB Q2H PRN PRN Reason: SOB &/or Wheezing Artificial Tears (Tears Naturale) 0 drop EA EYE PRN PRN PRN Reason: Dry Eyes Atorvastatin Calcium (Lipitor) [address] [facility] Last Admin: 10/10/17 21:00 Dose: 40 mg Clonidine (Catapres) 0.2 mg PO BID [facility] Last Admin: 10/11/17 07:45 Dose: Not Given Clopidogrel Bisulfate (Plavix) 75 mg PO DAILY [facility] Last Admin: 10/11/17 07:45 Dose: Not Given Epoetin [place] (Procrit) 10,000 units SC Q7D [facility] Last Admin: 10/06/17 15:57 Dose: Not Given Ferrous Sulfate (Feosol) 325 mg PO QA-[facility] Last Admin: 10/11/17 07:43 Dose: 325 mg Guaifenesin (Robitussin Sf) 200 mg PO Q4H PRN PRN Reason: Cough Hydralazine HCl (Apresoline) 10 mg SLOW IVP Q4H PRN PRN Reason: Systolic BP > 180 Last Admin: 10/08/17 14:05 Dose: 10 mg Loperamide HCl (Imodium) 2 mg PO PRN PRN PRN Reason: Diarrhea/Loose Stools Loratadine (Claritin) 10 mg PO DAILYPRN PRN PRN Reason: Sinus Symptoms Losartan Potassium (Cozaar) [address] [facility] Last Admin: 10/10/17 20:59 Dose: Not Given Magnesium Hydroxide (Milk Of Magnesium) 30 ml PO DAILYPRN PRN PRN Reason: Constipation Magnesium Hydroxide (Milk Of Magnesium) 30 ml PO DAILYPRN PRN PRN Reason: Constipation Methylcellulose (Citrucel) 500 mg PO BID [facility] Last Admin: 10/11/17 07:46 Dose: 500 mg Mineral Oil/White Petrolatum (Eucerin Cream) 0 gm TOP BIDPRN PRN PRN Reason: Dry Skin Morphine Sulfate (Morphine Sulfate) 4 mg SLOW IVP Q2H PRN PRN Reason: Pain Last Admin: 10/10/17 10:27 Dose: 4 mg Nitroglycerin (Nitrostat) 0.4 mg SL Q5MIN PRN PRN Reason: Chest Pain Ondansetron HCl (Zofran Odt) 4 mg PO Q6H PRN PRN Reason: Nausea/Vomiting Ondansetron HCl (Zofran) 4 mg IVP Q6H PRN PRN Reason: Nausea/Vomiting Pantoprazole Sodium (Protonix) 40 mg PO BID [facility] Last Admin: 10/11/17 07:43 Dose: 40 mg Phenol (Chloraseptic [place] 180 Ml Bot) 0 ml PO PRN PRN PRN Reason: Sore Throat Polyethylene Glycol (Miralax) 17 gm PO DAILY [facility] Last Admin: 10/11/17 07:45 Dose: 17 gm Senna (Senokot) 2 tab PO HSPRN PRN PRN Reason: Constipation Sevelamer Carbonate (Renvela) 2,[address]-[facility] Last Admin: 10/11/17 07:46 Dose: Not Given Sodium Chloride ([place] Nasal [place] 0.65%) 0 ml EA NARE QIDPRN PRN PRN Reason: Nasal Congestion Vitamin B Complex/Vit C/Folic Acid (Nephro-Tanika Tablet) 1 tab PO DAILY [facility] Last Admin: 10/11/17 07:45 Dose: 1 tab Zolpidem Tartrate (Ambien) 5 mg PO HSPRN PRN PRN Reason:
--- NOTE | 2017-10-11 11:52 | PRG ---
DATE OF SERVICE: 10/11/2017 SUBJECTIVE: Ms. Sullivan is a 62-year-old old black female with ESRD and was admitted for symptomatic anemia. She underwent hemorrhoidectomy, which was marked by postop bleeding. She received several u nits of packed RBC. This morning, she is feeling better. She denies any recurrent GI bleed. She st ill feels weak and tired. Denies any chest pain or shortness of breath. PHYSICAL EXAMINATION: VITAL SIGNS: Blood pressure is noted at 87/53, heart rate 106, temperature 98.2, pulse ox 96%. GENERAL: Noted to be awake, alert, comfortable, not in distress. SKIN: Adequate turgor. HEENT: Slightly pale conjunctivae, anicteric sclerae. NECK: No neck mass, no carotid bruits. No JVD. CHEST: No deformities. LUNGS: Clear breath sounds, no wheezing, no crackles. HEART: Normal sinus rhythm. No murmur, no gallops or rubs. ABDOMEN: Globular, soft, nontender, no masses. EXTREMITIES: No edema, no deformities. MEDICATIONS: Of 10/11/2017 was reviewed. LABORATORY DATA: Of 10/11/2017, white count 5.3, hemoglobin 8.1. Sodium 140, potassium 4.2, chlorid e 106, carbon dioxide 24, BUN 27, creatinine 5.62, glucose 144, calcium 8.1. ASSESSMENT AND PLAN: 1. Status post gastrointestinal bleed, much improved. P.r.n. blood transfusion. Continuing Epogen. 2. End-stage renal disease. No indication for any dialytic intervention. I will be resuming her he modialysis in a.m. We will continue her current Thursday, Thursday, Thursday hemodialysis regimen. Allison griffin, prognosis remains guarded.
--- NOTE | 2017-10-11 12:42 | PRG ---
DATE OF SERVICE: 10/11/2017 Ms. Sullivan is doing well. She is being transferred to [facility] to this medical floor. She is tolerating diet. She is passing flatus, 98.2 degrees, heart rate 106. Her pain is markedly diminished. Hemog lobin is stable at 8.1. She has not had any more rectal bleeding. Her abdomen is soft and nontender . Temperature is 100.3 degrees, probably result of inactivity, probably from atelectasis, to general anesthetics, blood pressure 130/57. At this point, I will see the patient as needed. She is ready for discharge at any time from a Surgery standpoint. She can follow up in my office in 2-3 weeks.
[2017-10-11] MEDS ORDERED: Morphine 5 MG/ML SYRINGE SLOW IVP PRN (15:09)
[2017-10-11] MEDS: metroNIDAZOLE 500 MG in Premix Bag 1 BAG IVPB SCH ×2 (15:17→22:06)
--- NOTE | 2017-10-11 15:40 | PRG ---
DATE OF SERVICE: 10/11/2017 SUBJECTIVE: Ms. Sullivan had no new complaints today. She had a maybe 5 mL of blood in the bedside co mmode after an attempted bowel movement. She took a shower. OBJECTIVE: VITAL SIGNS: She has been afebrile, heart rate is 104, respiratory rate is 20, oximetry is 92 on kel m air. LUNGS: Clear. HEART: Regular rhythm. ABDOMEN: Soft. LABORATORY DATA: Hemoglobin is stable at 8.1 this morning and 8.6 last night. IMPRESSION: 1. Status post massive hemorrhoidal bleeding. 2. End-stage renal disease. PLAN: Continue supportive care with dialysis as per Nephrology. Her bleeding issues appear to have resolved, hopefully for good. She is stable to move out of the intermediate care unit and this has b een done. We will sign off.
[2017-10-11] MEDS: Losartan 25 MG TAB PO SCH (20:27)
[2017-10-11] MEDS: Atorvastatin Calcium 40 MG TAB PO SCH (20:27)
[2017-10-12] MEDS: metroNIDAZOLE 500 MG in Premix Bag 1 BAG IVPB SCH ×3 (05:41→23:05)
[2017-10-12] MEDS: HYDROcodone/Acetaminophen 5/325 mg Tablet PO PRN ×3 (05:44→23:13)
[2017-10-12 08:03] LABS: #Lymphocytes 0.7 thou/uL (1.20-3.40); #Monocytes 0.7 thou/uL (0.11-0.59); #Neutrophils 5.7 thou/uL (1.40-6.50); %Basophils 0.1 % (0.0-1.0); %Eosinophils 0.4 % (0.0-10.0); %Lymphocytes 9.8 % (21.0-51.0); %Monocytes 9.2 % (0.0-10.0); %Neutrophils 80.5 % (42.0-75.0); Mean Corpuscular HGB CONC 33.9 g/dL (32.0-36.0); Mean Corpuscular Hemoglobin 30.4 pg (27.0-31.0); Mean Corpuscular Volume 89.8 fl (81.0-99.0); Mean Platelet Volume 7.2 fL (7.4-10.4); Platelet Count 118 thou/uL (130-400); RBC Distribution Width 16.6 % (11.5-14.5); White Blood Cell (WBC) Count 7.1 thou/uL (4.8-10.8)
[2017-10-12 08:11] LABS: Albumin 2.6 g/dL (3.4-4.8); Anion Gap 15 mmol/L (10-20); BUN (Urea Nitrogen) 39 mg/dL (9.8-20.1); BUN/Creatinine Ratio 4.66; Calc. Creatinine Clearance 7 mL/min (70-130); Calcium 8.4 mg/dL (7.8-10.44); Carbon Dioxide 22 mmol/L (23-31); Chloride 103 mmol/L (98-107); Estimated GFR-MDRD 6; Glucose 89 mg/dL (80-115); Phosphorus 4.2 mg/dL (2.3-4.7); Sodium 135 mmol/L (136-145)
--- NOTE | 2017-10-12 08:23 | PRG ---
DATE OF SERVICE: 10/12/2017 RENAL MEDICINE SUBJECTIVE: SUBJECTIVE: Ms. Sullivan is a 62-year-old black female with ESRD and currently on mainten ance hemodialysis. I am currently dialyzing this patient. I am at the bedside supervising her dialy sis. We will attempt about 2.4 liters of fluid removal as tolerated by the patient. Please note thi s patient was admitted for symptomatic anemia. She was noted to have a GI bleed. She underwent hemo rrhoidectomy, which was complicated by postop bleed. This was subsequently surgically remedied by e surgeon. Doing better in the last 2 days. No complaints of chest pain or shortness of breath. PHYSICAL EXAMINATION: VITAL SIGNS: Blood pressure is noted at 120/70 with heart rate of 86, respiratory rate was 16, and p ulse ox 95%. GENERAL: Awake, comfortable, not in overt distress. SKIN: Adequate turgor. HEENT: Slightly pale conjunctivae, anicteric sclerae. NECK: No neck mass, no carotid bruits, no JVD. CHEST: No deformities. LUNGS: Decreased breath sounds. HEART: Normal sinus rhythm. No murmurs, no gallops, no rubs. ABDOMEN: Globular, soft, nontender, no masses. EXTREMITIES: No edema, no deformities. MEDICATIONS: Medications of 10/12/2017 reviewed. LABORATORY DATA: Laboratories of 10/12/2017, white count 7.1, hemoglobin 7, hematocrit 20.7. Sodium 135, potassium 5, chloride 103, carbon dioxide 22, BUN 39, creatinine 8.37, glucose 89, calcium 8.4, phosphorus 4.2, and albumin 2.6. ASSESSMENT AND PLAN: 1. Anemia - continue weekly Epogen. We will transfuse 1 unit of packed red blood cells today with d ialysis. 2. End-stage renal disease, stable. We will continue planned heparin free hemodialysis. Fluid pamella temi only as tolerated. 3. Status post gastrointestinal bleed, stable. P.r.n. transfusion. Check basic metabolic panel and CBC in a.m.
--- NOTE | 2017-10-12 09:55 | PDOC.PN ---
- Subjective Encounter Start Date: 10/12/17 Encounter Start Time: 08:40 pt's H & H dropped, pt seen in dialysis room Patient seen and examined. No overnight events - Objective Resuscitation Status: Resuscitation Status FULL:Full Resuscitation MAR Reviewed: Yes Vital Signs & Weight: Vital Signs (12 hours) Temp Pulse Resp BP BP Pulse Ox 10/12/17 07:25 99.5 F 95 16 103/55 L 86 L 10/12/17 04:00 99.2 F 90 18 96/60 95 10/12/17 00:00 100.3 F H 91 18 124/63 96 Weight Weight 147 lb I&O: 10/11/17 10/12/17 10/13/17 06:59 06:59 06:59 Intake Total 1700 Output Total 0 Balance 1700 Result Diagrams: 10/12/17 07:44 10/12/17 07:44 Phys Exam - Physical Examination Constitutional: NAD HEENT: PERRLA, moist MMs, sclera anicteric Neck: no JVD, supple Respiratory: no wheezing, no rales, no rhonchi Cardiovascular: RRR, no significant murmur, no rub Gastrointestinal: soft, non-tender, no distention, positive bowel sounds Musculoskeletal: no edema, pulses present Neurological: moves all 4 limbs Lymphatic: no nodes Psychiatric: normal affect Skin: no rash, normal turgor Dx/Plan (1) Anemia due to acute blood loss Code(s): D62 - ACUTE POSTHEMORRHAGIC ANEMIA Status: Acute (2) Hypotension due to blood loss Code(s): I95.89 - OTHER HYPOTENSION Status: Acute (3) Elevated troponin Code(s): R74.8 - ABNORMAL LEVELS OF OTHER SERUM ENZYMES Status: Acute Comment: demand ischemia (4) Guaiac positive stools Status: Acute (5) Symptomatic anemia Code(s): D64.9 - ANEMIA, UNSPECIFIED Status: Acute (6) Anemia of renal disease Code(s): D63.1 - ANEMIA IN CHRONIC KIDNEY DISEASE Status: Chronic (7) COPD (chronic obstructive pulmonary disease) Status: Chronic (8) Chronic diastolic (congestive) heart failure Code(s): I50.32 - CHRONIC DIASTOLIC (CONGESTIVE) HEART FAILURE Status: Chronic (9) Dyslipidemia Code(s): E78.5 - HYPERLIPIDEMIA, UNSPECIFIED Status: Chronic (10) ESRD (end stage renal disease) on dialysis Code(s): N18.6 - END STAGE RENAL DISEASE; Z99.2 - DEPENDENCE ON RENAL DIALYSIS Status: Chronic (11) HTN (hypertension) Code(s): I10 - ESSENTIAL (PRIMARY) HYPERTENSION Status: Chronic (12) PVD (peripheral vascular disease) Code(s): I73.9 - PERIPHERAL VASCULAR DISEASE, UNSPECIFIED Status: Chronic (13) Secondary hyperparathyroidism of renal origin Code(s): N25.81 - SECONDARY HYPERPARATHYROIDISM OF RENAL ORIGIN Status: Chronic (14) Erosive gastritis Code(s): K29.60 - OTHER GASTRITIS WITHOUT BLEEDING Status: Acute (15) Bleeding external hemorrhoids Code(s): K64.4 - RESIDUAL HEMORRHOIDAL SKIN TAGS Status: Acute (16) Moderate tricuspid insufficiency Code(s): I07.1 - RHEUMATIC TRICUSPID INSUFFICIENCY Status: Chronic (17) Pulmonary hypertension Code(s): I27.20 - PULMONARY HYPERTENSION, UNSPECIFIED Status: Chronic - Plan cont current plan of care, plan discussed w/ family, continue antibiotics * continue levaquin and flagyl * transfuse 1 unit PRBC * medication reviewed as below * symptomatic treatment * will observe another day and repeat labs tomorrow * she is at high risk for readmission * updated plan to family. * DC plavix * Hold BP meds for now * get chest xray Review of Systems - Review of Systems Constitutional: fever, weakness. negative: chills, sweats, malaise, other ENT: negative: Ear Pain, Ear Discharge, Nose Pain, Nose Discharge, Nose Congestion, Mouth Pain, Mouth Swelling, Throat Pain, Throat Swelling, Other Respiratory: negative: Cough, Dry, Shortness of Breath, Hemoptysis, SOB with Excertion, Pleuritic Pain, Sputum, Wheezing Cardiovascular: negative: chest pain, palpitations, orthopnea, paroxysmal nocturnal dyspnea, edema, light headedness, other Gastrointestinal: negative: Nausea, Vomiting, Abdominal Pain, Diarrhea, Constipation, Melena, Hematochezia, Other Genitourinary: negative: Dysuria, Frequency, Incontinence, Hematuria, Retention , Other Musculoskeletal: negative: Neck Pain, Shoulder Pain, Arm Pain, Back Pain, Hand Pain, Leg Pain, Foot Pain, Other Skin: negative: Rash, Lesions, Neftali, Bruising, Other - Medications/Allergies Allergies/Adverse Reactions: Allergies Allergy/AdvReac Type Severity Reaction Status Date / Time iodine Allergy Severe Verified 02/09/17 22:47 Penicillins Allergy Severe Verified 02/09/17 22:47 Medications: Current Medications Acetaminophen (Tylenol) 650 mg PO Q4H PRN PRN Reason: Headache/Fever or Pain Acetaminophen (Tylenol) 1,000 mg PO Q6H PRN PRN Reason: Moderate to Severe Pain (6-10) Last Admin: 10/10/17 17:46 Dose: 1,000 mg Hydrocodone Bitart/Acetaminophen ([place] 5/325) 1 tab PO Q4H PRN PRN Reason: Moderate Pain (4-6) Last Admin: 10/12/17 05:44 Dose: 1 tab Al Hydroxide/Mg Hydroxide (Maalox) 30 ml PO Q6H PRN PRN Reason: Heartburn or Indigestion Albuterol/Ipratropium (Duoneb) 3 ml NEB Q2H PRN PRN Reason: SOB &/or Wheezing Artificial Tears (Tears Naturale) 0 drop EA EYE PRN PRN PRN Reason: Dry Eyes Atorvastatin Calcium (Lipitor) 40 mg PO [facility] Last Admin: 10/11/17 20:27 Dose: 40 mg Clonidine (Catapres) 0.2 mg PO BID [facility] Last Admin: 10/11/17 20:26 Dose: Not Given Epoetin Johnson (Procrit) 10,000 units SC Q7D [facility] Last Admin: 10/06/17 15:57 Dose: Not Given Ferrous Sulfate (Feosol) 325 mg PO QAM-[facility] Last Admin: 10/11/17 07:43 Dose: 325 mg Guaifenesin (Robitussin Sf) 200 mg PO Q4H PRN PRN Reason: Cough Hydralazine HCl (Apresoline) 10 mg SLOW IVP Q4H PRN PRN Reason: Systolic BP > 180 Last Admin: 10/08/17 14:05 Dose: 10 mg Levofloxacin 500 mg/ Device 100 mls @ 100 mls/hr IVPB Q2DAYS [facility] Last Admin: 10/11/17 10:40 Dose: 100 mls Metronidazole 500 mg/ Device 100 mls @ 100 mls/hr IVPB Q8HR [facility] Last Admin: 10/12/17 05:41 Dose: 100 mls Loperamide HCl (Imodium) 2 mg PO PRN PRN PRN Reason: Diarrhea/Loose Stools Loratadine (Claritin) 10 mg PO DAILYPRN PRN PRN Reason: Sinus Symptoms Losartan Potassium (Cozaar) 100 mg PO [facility] Last Admin: 10/11/17 20:27 Dose: 100 mg Magnesium Hydroxide (Milk Of Magnesium) 30 ml PO DAILYPRN PRN PRN Reason: Constipation Magnesium Hydroxide (Milk Of Magnesium) 30 ml PO DAILYPRN PRN PRN Reason: Constipation Methylcellulose (Citrucel) 500 mg PO BID [facility] Last Admin: 10/11/17 20:27 Dose: 500 mg Mineral Oil/White Petrolatum (Eucerin Cream) 0 gm TOP BIDPRN PRN PRN Reason: Dry Skin Morphine Sulfate (Morphine) 4 mg SLOW IVP Q2H PRN PRN Reason: Pain Last Admin: 10/11/17 15:16 Dose: 4 mg Nitroglycerin (Nitrostat) 0.4 mg SL Q5MIN PRN PRN Reason: Chest Pain Ondansetron HCl (Zofran Odt) 4 mg PO Q6H PRN PRN Reason: Nausea/Vomiting Ondansetron HCl (Zofran) 4 mg IVP Q6H PRN PRN Reason: Nausea/Vomiting Pantoprazole Sodium (Protonix) 40 mg PO BID [facility] Last Admin: 10/11/17 20:27 Dose: 40 mg Phenol (Chloraseptic [place] 180 Ml Bot) 0 ml PO PRN PRN PRN Reason: Sore Throat Polyethylene Glycol (Miralax) 17 gm PO DAILY [facility] Last Admin: 10/11/17 07:45 Dose: 17 gm Senna (Senokot) 2 tab PO HSPRN PRN PRN Reason: Constipation Sevelamer Carbonate (Renvela) 2,400 mg PO TID-[facility] Last Admin: 10/11/17 17:49 Dose: 2,400 mg Sodium Chloride ([place] Nasal [place] 0.65%) 0 ml EA NARE QIDPRN PRN PRN Reason: Nasal Congestion Sodium Chloride (Flush - Normal Saline) 10 ml IVF Q12HR [facility] Last Admin: 10/11/17 20:28 Dose: 10 ml Sodium Chloride (Flush - Normal Saline) 10 ml IVF PRN PRN PRN Reason: Saline Flush Vitamin B Complex/Vit C/Folic Acid (Nephro-Tanika Tablet) 1 tab PO DAILY [facility] Last Admin: 10/11/17 07:45 Dose: 1 tab Zolpidem Tartrate (Ambien) 5 mg PO HSPRN PRN PRN Reason: Insomnia
[2017-10-12] MEDS: Ferrous Sulfate 325 MG TAB PO SCH (11:37)
[2017-10-12] MEDS: Sevelamer Carbonate 800 MG TAB PO SCH ×3 (11:38→17:51)
[2017-10-12] MEDS: Folic Acid/Vit B Comp W-C PO SCH (11:40)
[2017-10-12] MEDS: cloNIDine 0.2 MG TAB PO SCH ×2 (11:40→23:02)
[2017-10-12] MEDS: Polyethylene Glycol 3350 17 GM Packet PO SCH (11:41)
[2017-10-12] MEDS: Citrucel 500 MG TAB PO SCH ×2 (11:41→23:04)
--- NOTE | 2017-10-12 14:39 | RAD ---
CHEST 1 VIEW: HISTORY: Fever. COMPARISON: 08/10/17. FINDINGS: Cardiac silhouette is magnified and enlarged. Pulmonary vasculature is engorged with diffuse reticul onodular interstitial prominence. Mediastinum is midline with aortic calcification. Irregular paren chymal opacity at the right base has progressed. There is blunting of each costophrenic angle. [place] llic clips overlie each side of the neck. IMPRESSION: 1. Worsening patchy right basilar infiltrate. This could be related to developing pulmonary edema g iven the pleural fluid and pulmonary vascular congestion. Please consider continued radiographic fol lowup to evaluate for underlying right lung base abnormality after the edema has resolved. 2. Cardiomegaly. 3. Atherosclerosis. POS: [facility]
[2017-10-12] MEDS: Atorvastatin Calcium 40 MG TAB PO SCH (23:03)
[2017-10-12] MEDS: Losartan 25 MG TAB PO SCH (23:03)
[2017-10-13] MEDS: metroNIDAZOLE 500 MG in Premix Bag 1 BAG IVPB SCH ×3 (06:34→21:48)
[2017-10-13] MEDS: HYDROcodone/Acetaminophen 5/325 mg Tablet PO PRN ×4 (06:42→21:57)
[2017-10-13 06:59] LABS: #Eosinphils 0.2 thou/uL (0.0-0.7); #Lymphocytes 0.6 thou/uL (1.20-3.40); #Monocytes 0.6 thou/uL (0.11-0.59); #Neutrophils 4.6 thou/uL (1.40-6.50); %Basophils 0.2 % (0.0-1.0); %Eosinophils 3.3 % (0.0-10.0); %Lymphocytes 10.3 % (21.0-51.0); %Monocytes 10.6 % (0.0-10.0); %Neutrophils 75.7 % (42.0-75.0); Hemoglobin 8.6 g/dL (12.0-16.0); Mean Corpuscular HGB CONC 32.9 g/dL (32.0-36.0); Mean Corpuscular Hemoglobin 30.4 pg (27.0-31.0); Mean Corpuscular Volume 92.4 fl (81.0-99.0); Mean Platelet Volume 7.1 fL (7.4-10.4); Platelet Count 130 thou/uL (130-400); RBC Distribution Width 15.6 % (11.5-14.5); Red Blood Cell (RBC) Count 2.82 mill/uL (4.20-5.40)
[2017-10-13 07:06] LABS: Anion Gap 13 mmol/L (10-20); BUN (Urea Nitrogen) 19 mg/dL (9.8-20.1); Calc. Creatinine Clearance 12 mL/min (70-130); Calcium 8.3 mg/dL (7.8-10.44); Carbon Dioxide 28 mmol/L (23-31); Chloride 102 mmol/L (98-107); Estimated GFR-MDRD 11; Glucose 86 mg/dL (80-115); Potassium 4.1 mmol/L (3.5-5.1); Sodium 139 mmol/L (136-145)
--- NOTE | 2017-10-13 09:03 | PRG ---
DATE OF SERVICE: 10/13/2017 SUBJECTIVE: Ms. Sullivan is a 62-year-old black female with ESRD and admitted for symptomatic anemia. She had some complications where she had a postop bleed from her hemorrhoidectomy, doing better, has received several units of packed RBC. She is still symptomatic. Today, she is getting extra dialys is due to fluid overload. She was a bit volume overloaded yesterday. My plan is to do a short 2-avery r dialysis without any heparin with this patient. In addition, she did receive 1 unit packed RBC yes terday for hemoglobin of 7. She is currently at 8.6. My plan is to at least target her hemoglobin t o near 10. We will give another unit of packed RBC today. The patient denies any chest pain, but sh christiano has some mild shortness of breath. She still feels tired. OBJECTIVE: VITAL SIGNS: Blood pressure is 137/77, heart rate 90, respiratory rate 16, temperature 99.6, pulse o x 93%. GENERAL: Noted to be awake, alert, comfortable, not in distress. SKIN: Adequate turgor. HEENT: She has slightly pale conjunctivae, anicteric sclerae. NECK: No neck mass, no carotid bruits, no JVD. CHEST: No deformities. LUNGS: Clear breath sounds. No wheezing, no crackles. HEART: Normal sinus rhythm. No murmur, no gallops, no rubs. ABDOMEN: Globular, soft, nontender, no masses. EXTREMITIES: No edema, no deformities. MEDICATIONS: Of 10/13/2017, was reviewed. LABORATORY DATA: Of 10/13/2017, white count 6, hemoglobin 8.6, hematocrit 26.1. Sodium 139, potassi um 4.1, chloride 102, carbon dioxide 28, BUN 90, creatinine 5, glucose 86, calcium 8.3. ASSESSMENT AND PLAN: 1. End-stage renal disease, stable. Extra hemodialysis for volume overload. We will do a short 2-h our hemodialysis using no heparin due to recent gastrointestinal bleed. 2. Symptomatic anemia. We will give 1 more unit of packed RBC with dialysis. Continue weekly Epoge n. 3. Status post gastrointestinal bleed - much improved. Gastrointestinal following. We will recheck base met and CBC in a.m.
--- NOTE | 2017-10-13 09:26 | PDOC.PN ---
- Subjective Encounter Start Date: 10/13/17 Encounter Start Time: 09:00 pt seen in HD, doing well, has dyspnea and cough, no fever today - Objective Resuscitation Status: Resuscitation Status FULL:Full Resuscitation MAR Reviewed: Yes Vital Signs & Weight: Vital Signs (12 hours) Temp Pulse Resp BP BP Pulse Ox 10/13/17 08:00 99.4 F 86 16 116/68 94 L 10/12/17 23:02 137/77 Weight Weight 144 lb 3.2 oz I&O: 10/12/17 10/13/17 10/14/17 06:59 06:59 06:59 Intake Total 1700 4745 Output Total 0 1700 Balance 1700 3045 Result Diagrams: 10/13/17 06:51 10/13/17 06:51 Radiology Reviewed by me: Yes Phys Exam - Physical Examination Constitutional: NAD HEENT: PERRLA, moist MMs, sclera anicteric Neck: no JVD, supple Respiratory: no wheezing, no rales, no rhonchi coarse sound Cardiovascular: RRR, no significant murmur, no rub Gastrointestinal: soft, non-tender, no distention, positive bowel sounds Musculoskeletal: no edema, pulses present Neurological: non-focal, normal sensation Psychiatric: normal affect, A&O x 3 Skin: no rash, normal turgor Dx/Plan (1) Anemia due to acute blood loss Code(s): D62 - ACUTE POSTHEMORRHAGIC ANEMIA Status: Acute (2) Hypotension due to blood loss Code(s): I95.89 - OTHER HYPOTENSION Status: Acute (3) Elevated troponin Code(s): R74.8 - ABNORMAL LEVELS OF OTHER SERUM ENZYMES Status: Acute Comment: demand ischemia (4) Guaiac positive stools Status: Acute (5) Symptomatic anemia Code(s): D64.9 - ANEMIA, UNSPECIFIED Status: Acute (6) Anemia of renal disease Code(s): D63.1 - ANEMIA IN CHRONIC KIDNEY DISEASE Status: Chronic (7) COPD (chronic obstructive pulmonary disease) Status: Chronic (8) Chronic diastolic (congestive) heart failure Code(s): I50.32 - CHRONIC DIASTOLIC (CONGESTIVE) HEART FAILURE Status: Chronic (9) Dyslipidemia Code(s): E78.5 - HYPERLIPIDEMIA, UNSPECIFIED Status: Chronic (10) ESRD (end stage renal disease) on dialysis Code(s): N18.6 - END STAGE RENAL DISEASE; Z99.2 - DEPENDENCE ON RENAL DIALYSIS Status: Chronic (11) HTN (hypertension) Code(s): I10 - ESSENTIAL (PRIMARY) HYPERTENSION Status: Chronic (12) PVD (peripheral vascular disease) Code(s): I73.9 - PERIPHERAL VASCULAR DISEASE, UNSPECIFIED Status: Chronic (13) Secondary hyperparathyroidism of renal origin Code(s): N25.81 - SECONDARY HYPERPARATHYROIDISM OF RENAL ORIGIN Status: Chronic (14) Erosive gastritis Code(s): K29.60 - OTHER GASTRITIS WITHOUT BLEEDING Status: Acute (15) Bleeding external hemorrhoids Code(s): K64.4 - RESIDUAL HEMORRHOIDAL SKIN TAGS Status: Acute (16) Moderate tricuspid insufficiency Code(s): I07.1 - RHEUMATIC TRICUSPID INSUFFICIENCY Status: Chronic (17) Pulmonary hypertension Code(s): I27.20 - PULMONARY HYPERTENSION, UNSPECIFIED Status: Chronic - Plan cont current plan of care, continue antibiotics * Conitnue HD as per nephrology today for extra 2 hours for volume overload * medication reviewed as below * symptomatic treatment * repeat labs as per nephrology * will monitor today. Review of Systems - Review of Systems Eyes: negative: Pain, Vision Change, Conjunctivae Inflammation, Eyelid Inflammation, Redness, Other ENT: negative: Ear Pain, Ear Discharge, Nose Pain, Nose Discharge, Nose Congestion, Mouth Pain, Mouth Swelling, Throat Pain, Throat Swelling, Other Respiratory: negative: Cough, Dry, Shortness of Breath, Hemoptysis, SOB with Excertion, Pleuritic Pain, Sputum, Wheezing Cardiovascular: negative: chest pain, palpitations, orthopnea, paroxysmal nocturnal dyspnea, edema, light headedness, other Gastrointestinal: negative: Nausea, Vomiting, Abdominal Pain, Diarrhea, Constipation, Melena, Hematochezia, Other Genitourinary: negative: Dysuria, Frequency, Incontinence, Hematuria, Retention , Other Musculoskeletal: negative: Neck Pain, Shoulder Pain, Arm Pain, Back Pain, Hand Pain, Leg Pain, Foot Pain, Other Skin: negative: Rash, Lesions, Neftali, Bruising, Other - Medications/Allergies Allergies/Adverse Reactions: Allergies Allergy/AdvReac Type Severity Reaction Status Date / Time iodine Allergy Severe Verified 02/09/17 22:47 Penicillins Allergy Severe Verified 02/09/17 22:47 Medications: Current Medications Acetaminophen (Tylenol) 650 mg PO Q4H PRN PRN Reason: Headache/Fever or Pain Last Admin: 10/12/17 11:49 Dose: 650 mg Acetaminophen (Tylenol) 1,000 mg PO Q6H PRN PRN Reason: Moderate to Severe Pain (6-10) Last Admin: 10/10/17 17:46 Dose: 1,000 mg Hydrocodone Bitart/Acetaminophen ([place] 5/325) 1 tab PO Q4H PRN PRN Reason: Moderate Pain (4-6) Last Admin: 10/13/17 06:42 Dose: 1 tab Al Hydroxide/Mg Hydroxide (Maalox) 30 ml PO Q6H PRN PRN Reason: Heartburn or Indigestion Albuterol/Ipratropium (Duoneb) 3 ml NEB Q2H PRN PRN Reason: SOB &/or Wheezing Artificial Tears (Tears Naturale) 0 drop EA EYE PRN PRN PRN Reason: Dry Eyes Atorvastatin Calcium (Lipitor) 40 mg PO [facility] Last Admin: 10/12/17 23:03 Dose: 40 mg Clonidine (Catapres) 0.2 mg PO BID [facility] Last Admin: 10/12/17 23:02 Dose: 0.2 mg Epoetin [place] (Procrit) 10,000 units SC Q7D [facility] Last Admin: 10/06/17 15:57 Dose: Not Given Ferrous Sulfate (Feosol) 325 mg PO [facility] Last Admin: 10/12/17 11:37 Dose: 325 mg Guaifenesin (Robitussin Sf) 200 mg PO Q4H PRN PRN Reason: Cough Hydralazine HCl (Apresoline) 10 mg SLOW IVP Q4H PRN PRN Reason: Systolic BP > 180 Last Admin: 10/08/17 14:05 Dose: 10 mg Levofloxacin 500 mg/ Device 100 mls @ 100 mls/hr IVPB Q2DAYS [facility] Last Admin: 10/11/17 10:40 Dose: 100 mls Metronidazole 500 mg/ Device 100 mls @ 100 mls/hr IVPB Q8HR [facility] Last Admin: 10/13/17 06:34 Dose: 100 mls Loperamide HCl (Imodium) 2 mg PO PRN PRN PRN Reason: Diarrhea/Loose Stools Loratadine (Claritin) 10 mg PO DAILYPRN PRN PRN Reason: Sinus Symptoms Losartan Potassium (Cozaar) 100 mg PO [facility] Last Admin: 10/12/17 23:03 Dose: 100 mg Magnesium Hydroxide (Milk Of Magnesium) 30 ml PO DAILYPRN PRN PRN Reason: Constipation Magnesium Hydroxide (Milk Of Magnesium) 30 ml PO DAILYPRN PRN PRN Reason: Constipation Methylcellulose (Citrucel) 500 mg PO BID [facility] Last Admin: 10/12/17 23:04 Dose: 500 mg Mineral Oil/White Petrolatum (Eucerin Cream) 0 gm TOP BIDPRN PRN PRN Reason: Dry Skin Morphine Sulfate (Morphine) 4 mg SLOW IVP Q2H PRN PRN Reason: Pain Last Admin: 10/11/17 15:16 Dose: 4 mg Nitroglycerin (Nitrostat) 0.4 mg SL Q5MIN PRN PRN Reason: Chest Pain Ondansetron HCl (Zofran Odt) 4 mg PO Q6H PRN PRN Reason: Nausea/Vomiting Ondansetron HCl (Zofran) 4 mg IVP Q6H PRN PRN Reason: Nausea/Vomiting Pantoprazole Sodium (Protonix) 40 mg PO BID [facility] Last Admin: 10/12/17 23:03 Dose: 40 mg Phenol (Chloraseptic [place] 180 Ml Bot) 0 ml PO PRN PRN PRN Reason: Sore Throat Polyethylene Glycol (Miralax) 17 gm PO DAILY [facility] Last Admin: 10/12/17 11:41 Dose: 17 gm Senna (Senokot) 2 tab PO HSPRN PRN PRN Reason: Constipation Sevelamer Carbonate (Renvela) 2,400 mg PO TID-[facility] Last Admin: 10/12/17 17:51 Dose: 2,400 mg Sodium Chloride ([place] Nasal [place] 0.65%) 0 ml EA NARE QIDPRN PRN PRN Reason: Nasal Congestion Sodium Chloride (Flush - Normal Saline) 10 ml IVF Q12HR [facility] Last Admin: 10/12/17 23:05 Dose: 10 ml Sodium Chloride (Flush - Normal Saline) 10 ml IVF PRN PRN PRN Reason: Saline Flush Vitamin B Complex/Vit C/Folic Acid (Nephro-Tanika Tablet) 1 tab PO DAILY [facility] Last Admin: 10/12/17 11:40 Dose: 1 tab Zolpidem Tartrate (Ambien) 5 mg PO HSPRN PRN PRN Reason: Insomnia
[2017-10-13] MEDS ORDERED: Epoetin (ESRD) 10,000 UNITS/ML VIAL SC SCH (09:30)
[2017-10-13] MEDS: Sevelamer Carbonate 800 MG TAB PO SCH ×3 (11:46→16:35)
[2017-10-13] MEDS: Ferrous Sulfate 325 MG TAB PO SCH (11:47)
[2017-10-13] MEDS: Polyethylene Glycol 3350 17 GM Packet PO SCH (11:47)
[2017-10-13] MEDS: Folic Acid/Vit B Comp W-C PO SCH (11:47)
[2017-10-13] MEDS: Citrucel 500 MG TAB PO SCH ×2 (11:49→21:48)
[2017-10-13] MEDS: cloNIDine 0.2 MG TAB PO SCH ×2 (11:50→21:48)
[2017-10-13] MEDS: Atorvastatin Calcium 40 MG TAB PO SCH (21:48)
[2017-10-13] MEDS: Losartan 25 MG TAB PO SCH (21:57)
[2017-10-14] MEDS: HYDROcodone/Acetaminophen 5/325 mg Tablet PO PRN (06:22)
[2017-10-14] MEDS: metroNIDAZOLE 500 MG in Premix Bag 1 BAG IVPB SCH ×2 (06:23→14:00)
[2017-10-14 06:42] LABS: #Eosinphils 0.3 thou/uL (0.0-0.7); #Lymphocytes 0.8 thou/uL (1.20-3.40); #Monocytes 0.7 thou/uL (0.11-0.59); #Neutrophils 4.3 thou/uL (1.40-6.50); %Basophils 0.1 % (0.0-1.0); %Eosinophils 5.2 % (0.0-10.0); %Lymphocytes 12.4 % (21.0-51.0); %Monocytes 12.1 % (0.0-10.0); %Neutrophils 70.2 % (42.0-75.0); Hemoglobin 10.7 g/dL (12.0-16.0); Mean Corpuscular HGB CONC 33.9 g/dL (32.0-36.0); Mean Corpuscular Hemoglobin 30.7 pg (27.0-31.0); Mean Corpuscular Volume 90.7 fl (81.0-99.0); Mean Platelet Volume 6.6 fL (7.4-10.4); Platelet Count 155 thou/uL (130-400); RBC Distribution Width 15.4 % (11.5-14.5); Red Blood Cell (RBC) Count 3.48 mill/uL (4.20-5.40); White Blood Cell (WBC) Count 6.1 thou/uL (4.8-10.8)
[2017-10-14 07:05] LABS: Anion Gap 13 mmol/L (10-20); BUN (Urea Nitrogen) 15 mg/dL (9.8-20.1); Calc. Creatinine Clearance 13 mL/min (70-130); Calcium 8.9 mg/dL (7.8-10.44); Carbon Dioxide 29 mmol/L (23-31); Chloride 100 mmol/L (98-107); Estimated GFR-MDRD 12; Glucose 86 mg/dL (80-115); Potassium 3.6 mmol/L (3.5-5.1); Sodium 138 mmol/L (136-145)
[2017-10-14] MEDS: Citrucel 500 MG TAB PO SCH (08:46)
[2017-10-14] MEDS: Folic Acid/Vit B Comp W-C PO SCH (08:46)
[2017-10-14] MEDS: Ferrous Sulfate 325 MG TAB PO SCH (08:46)
[2017-10-14] MEDS: cloNIDine 0.2 MG TAB PO SCH (08:47)
[2017-10-14] MEDS: Polyethylene Glycol 3350 17 GM Packet PO SCH (08:48)
[2017-10-14] MEDS: Sevelamer Carbonate 800 MG TAB PO SCH ×2 (08:49→13:59)
--- NOTE | 2017-10-14 09:31 | PDOC.PN ---
- Subjective Encounter Start Date: 10/14/17 Encounter Start Time: 08:30 Patient seen and examined. No new complaints. No overnight events - Objective Resuscitation Status: Resuscitation Status FULL:Full Resuscitation MAR Reviewed: Yes Vital Signs & Weight: Vital Signs (12 hours) Temp Pulse Resp BP BP Pulse Ox 10/14/17 08:47 139/73 10/14/17 08:12 99.0 F 79 18 139/73 93 L 10/13/17 21:48 128/74 Weight Weight 144 lb 3.2 oz I&O: 10/13/17 10/14/17 10/15/17 06:59 06:59 06:59 Intake Total 4745 1500 Output Total 1700 1 Balance 3045 1499 Result Diagrams: 10/14/17 06:21 10/14/17 06:21 Phys Exam - Physical Examination Constitutional: NAD HEENT: PERRLA, moist MMs, sclera anicteric Neck: no JVD, supple Respiratory: no wheezing, no rales, no rhonchi Cardiovascular: RRR, no significant murmur, no rub Gastrointestinal: soft, non-tender, no distention, positive bowel sounds Musculoskeletal: no edema, pulses present Neurological: non-focal, normal sensation, moves all 4 limbs Lymphatic: no nodes Psychiatric: normal affect, A&O x 3 Skin: no rash, normal turgor Dx/Plan (1) Anemia due to acute blood loss Code(s): D62 - ACUTE POSTHEMORRHAGIC ANEMIA Status: Acute (2) Hypotension due to blood loss Code(s): I95.89 - OTHER HYPOTENSION Status: Resolved (3) Elevated troponin Code(s): R74.8 - ABNORMAL LEVELS OF OTHER SERUM ENZYMES Status: Acute Comment: demand ischemia (4) Guaiac positive stools Status: Acute (5) Symptomatic anemia Code(s): D64.9 - ANEMIA, UNSPECIFIED Status: Acute (6) Anemia of renal disease Code(s): D63.1 - ANEMIA IN CHRONIC KIDNEY DISEASE Status: Chronic (7) COPD (chronic obstructive pulmonary disease) Status: Chronic (8) Chronic diastolic (congestive) heart failure Code(s): I50.32 - CHRONIC DIASTOLIC (CONGESTIVE) HEART FAILURE Status: Chronic (9) Dyslipidemia Code(s): E78.5 - HYPERLIPIDEMIA, UNSPECIFIED Status: Chronic (10) ESRD (end stage renal disease) on dialysis Code(s): N18.6 - END STAGE RENAL DISEASE; Z99.2 - DEPENDENCE ON RENAL DIALYSIS Status: Chronic (11) HTN (hypertension) Code(s): I10 - ESSENTIAL (PRIMARY) HYPERTENSION Status: Chronic (12) PVD (peripheral vascular disease) Code(s): I73.9 - PERIPHERAL VASCULAR DISEASE, UNSPECIFIED Status: Chronic (13) Secondary hyperparathyroidism of renal origin Code(s): N25.81 - SECONDARY HYPERPARATHYROIDISM OF RENAL ORIGIN Status: Chronic (14) Erosive gastritis Code(s): K29.60 - OTHER GASTRITIS WITHOUT BLEEDING Status: Acute (15) Bleeding external hemorrhoids Code(s): K64.4 - RESIDUAL HEMORRHOIDAL SKIN TAGS Status: Acute (16) Moderate tricuspid insufficiency Code(s): I07.1 - RHEUMATIC TRICUSPID INSUFFICIENCY Status: Chronic (17) Pulmonary hypertension Code(s): I27.20 - PULMONARY HYPERTENSION, UNSPECIFIED Status: Chronic - Plan cont current plan of care, continue antibiotics * continue levaquin on discharge * today HD * T3 for pain control * stable for discharge and follow up with surgeon * high risk for readmission * medication reviewed as below * symptomatic treatment. Review of Systems - Review of Systems Eyes: negative: Pain, Vision Change, Conjunctivae Inflammation, Eyelid Inflammation, Redness, Other ENT: negative: Ear Pain, Ear Discharge, Nose Pain, Nose Discharge, Nose Congestion, Mouth Pain, Mouth Swelling, Throat Pain, Throat Swelling, Other Respiratory: negative: Cough, Dry, Shortness of Breath, Hemoptysis, SOB with Excertion, Pleuritic Pain, Sputum, Wheezing Cardiovascular: negative: chest pain, palpitations, orthopnea, paroxysmal nocturnal dyspnea, edema, light headedness, other Gastrointestinal: negative: Nausea, Vomiting, Abdominal Pain, Diarrhea, Constipation, Melena, Hematochezia, Other Genitourinary: negative: Dysuria, Frequency, Incontinence, Hematuria, Retention , Other Musculoskeletal: negative: Neck Pain, Shoulder Pain, Arm Pain, Back Pain, Hand Pain, Leg Pain, Foot Pain, Other Skin: negative: Rash, Lesions, Neftali, Bruising, Other - Medications/Allergies Allergies/Adverse Reactions: Allergies Allergy/AdvReac Type Severity Reaction Status Date / Time iodine Allergy Severe Verified 02/09/17 22:47 Penicillins Allergy Severe Verified 02/09/17 22:47 Medications: Current Medications Acetaminophen (Tylenol) 650 mg PO Q4H PRN PRN Reason: Headache/Fever or Pain Last Admin: 10/12/17 11:49 Dose: 650 mg Acetaminophen (Tylenol) 1,000 mg PO Q6H PRN PRN Reason: Moderate to Severe Pain (6-10) Last Admin: 10/10/17 17:46 Dose: 1,000 mg Hydrocodone Bitart/Acetaminophen (Street[place] 5/325) 1 tab PO Q4H PRN PRN Reason: Moderate Pain (4-6) Last Admin: 10/14/17 06:22 Dose: 1 tab Al Hydroxide/Mg Hydroxide (Maalox) 30 ml PO Q6H PRN PRN Reason: Heartburn or Indigestion Albuterol/Ipratropium (Duoneb) 3 ml NEB Q2H PRN PRN Reason: SOB &/or Wheezing Artificial Tears (Tears Naturale) 0 drop EA EYE PRN PRN PRN Reason: Dry Eyes Atorvastatin Calcium (Lipitor) 40 mg PO [facility] Last Admin: 10/13/17 21:48 Dose: 40 mg Clonidine (Catapres) 0.2 mg PO BID [facility] Last Admin: 10/14/17 08:47 Dose: Not Given Epoetin Johnson (Procrit) 10,000 units SC Q7D [facility] Last Admin: 10/13/17 10:08 Dose: 10,000 units Ferrous Sulfate (Feosol) 325 mg PO QAM-[facility] Last Admin: 10/14/17 08:46 Dose: 325 mg Guaifenesin (Robitussin Sf) 200 mg PO Q4H PRN PRN Reason: Cough Hydralazine HCl (Apresoline) 10 mg SLOW IVP Q4H PRN PRN Reason: Systolic BP > 180 Last Admin: 10/08/17 14:05 Dose: 10 mg Levofloxacin 500 mg/ Device 100 mls @ 100 mls/hr IVPB Q2DAYS [facility] Last Admin: 10/13/17 11:51 Dose: 100 mls Metronidazole 500 mg/ Device 100 mls @ 100 mls/hr IVPB Q8HR [facility] Last Admin: 10/14/17 06:23 Dose: 100 mls Loperamide HCl (Imodium) 2 mg PO PRN PRN PRN Reason: Diarrhea/Loose Stools Loratadine (Claritin) 10 mg PO DAILYPRN PRN PRN Reason: Sinus Symptoms Losartan Potassium (Cozaar) 100 mg PO [facility] Last Admin: 10/13/17 21:57 Dose: 100 mg Magnesium Hydroxide (Milk Of Magnesium) 30 ml PO DAILYPRN PRN PRN Reason: Constipation Magnesium Hydroxide (Milk Of Magnesium) 30 ml PO DAILYPRN PRN PRN Reason: Constipation Methylcellulose (Citrucel) 500 mg PO BID [facility] Last Admin: 10/14/17 08:46 Dose: 500 mg Mineral Oil/White Petrolatum (Eucerin Cream) 0 gm TOP BIDPRN PRN PRN Reason: Dry Skin Morphine Sulfate (Morphine) 4 mg SLOW IVP Q2H PRN PRN Reason: Pain Last Admin: 10/11/17 15:16 Dose: 4 mg Nitroglycerin (Nitrostat) 0.4 mg SL Q5MIN PRN PRN Reason: Chest Pain Ondansetron HCl (Zofran Odt) 4 mg PO Q6H PRN PRN Reason: Nausea/Vomiting Ondansetron HCl (Zofran) 4 mg IVP Q6H PRN PRN Reason: Nausea/Vomiting Pantoprazole Sodium (Protonix) 40 mg PO BID [facility] Last Admin: 10/14/17 08:46 Dose: 40 mg Phenol (Chloraseptic [place] 180 Ml Bot) 0 ml PO PRN PRN PRN Reason: Sore Throat Polyethylene Glycol (Miralax) 17 gm PO DAILY [facility] Last Admin: 10/14/17 08:48 Dose: 17 gm Senna (Senokot) 2 tab PO HSPRN PRN PRN Reason: Constipation Sevelamer Carbonate (Renvela) 2,400 mg PO TID-[facility] Last Admin: 10/14/17 08:49 Dose: Not Given Sodium Chloride (Haines Nasal [place] 0.65%) 0 ml EA NARE QIDPRN PRN PRN Reason: Nasal Congestion Sodium Chloride (Flush - Normal Saline) 10 ml IVF Q12HR [facility] Last Admin: 10/14/17 08:48 Dose: 10 ml Sodium Chloride (Flush - Normal Saline) 10 ml IVF PRN PRN PRN Reason: Saline Flush Vitamin B Complex/Vit C/Folic Acid (Nephro-Tanika Tablet) 1 tab PO DAILY [facility] Last Admin: 10/14/17 08:46 Dose: 1 tab Zolpidem Tartrate (Ambien) 5 mg PO HSPRN PRN PRN Reason: Insomnia
--- NOTE | 2017-10-14 10:31 | DIS ---
DATE OF ADMISSION: 10/06/2017 DATE OF DISCHARGE: 10/14/2017 PRIMARY CARE PHYSICIAN: Abhay Roman M.D. DISCHARGE DISPOSITION: Home. PRIMARY DISCHARGE DIAGNOSES: 1. Symptomatic anemia, status post total 9 units of blood transfusion. 2. Anemia due to acute blood loss. 3. Bleeding from external hemorrhoid. 4. Status post hemorrhoidectomy. 5. Elevated troponin due to demand ischemia. 6. Erosive gastritis. 7. Thrombocytopenia. 8. Hypotension due to acute blood loss. SECONDARY DISCHARGE DIAGNOSES: Secondary hyperparathyroidism of renal origin, peripheral vascular di sease, pulmonary hypertension, moderate tricuspid regurgitation, hypertension, end-stage renal diseas e on hemodialysis, dyslipidemia, chronic obstructive pulmonary disease, chronic diastolic heart failu re, anemia of renal disease. PRIMARY PROCEDURES/OPERATIONS: 1. Upper endoscopy showed erosive gastritis. Colonoscopy showed large external and internal hemorrh oid. 2. Hemorrhoidectomy. 3. Post-operation, patient had acute blood loss, required repeat surgery with stapling. RADIOLOGICAL INVESTIGATION: Chest x-ray showed pulmonary vascular congestion. SIGNIFICANT LABORATORY DATA: WBC 6.1, hemoglobin 10.7, platelet 155. Sodium 138, potassium 3.6, BUN 15, creatinine 4.67, calcium 8.9, albumin 2.6. LFT normal. Troponin 0.058. Urinalysis unremarkabl e. DISCHARGE MEDICATIONS: Lipitor 40 mg p.o. at bedtime, clonidine 0.2 mg p.o. b.i.d., Plavix 75 mg p.o . daily, ferrous sulfate 325 mg p.o. daily, Nephro-Tanika 1 tablet p.o. daily, Levaquin 500 mg p.o. suki ry other day for 5 tablets, losartan 100 mg p.o. daily, Antivert 25 mg p.o. q.8 hourly, Protonix 40 m g p.o. daily, Renvela 2400 mg p.o. t.i.d., Ventolin inhaler 2 puffs q.4 hourly p.r.n. CONTRAINDICATIONS: None. CODE STATUS: FULL CODE. INPATIENT CONSULTANTS: Dr. Reyna was following for maintenance hemodialysis. Dr. Yang saw this patie nt because the patient required IMCU transfer after a code green. Dr. Zhang was consulted for hemor rhoidectomy. Dr. Holguin was consulted for symptomatic anemia and anemia workup. ADDITIONAL INFORMATION: I have provided this patient information about holding blood pressure medica tion if blood pressure is less than 130/80. The patient is also advised to hold Plavix if patient jc s any further bleeding or any blood clot through the surgical site. This patient is also given Tylen ol #3 for pain. DISCHARGE PLAN: Post hospital, patient will follow up with Dr. Zhang, Dr. Abel Blank and Dr. Valerie alvarado as instructed. TEST RESULTS PENDING ON DISCHARGE: None. ALLERGIES: IODINE and PENICILLIN. HOSPITAL COURSE: A 62-year-old female who was admitted by pa on 10/06/2017. This patient mainly adm itted for symptomatic anemia. This patient has a prolonged history of symptomatic anemia and she req uired multiple times blood transfusion. This patient was also complaining of chest pain and she had elevated troponin. All symptoms were related with symptomatic anemia. Her hemoglobin was 5.8. At t his time, patient had upper endoscopy which showed erosive gastritis and colonoscopy showed hemorrhoi d. The patient was evaluated by Dr. Holguin who did upper endoscopy and colonoscopy and consulted Dr. Zhang, Dr. Zhang did hemorrhoidectomy and after hemorrhoidectomy next day, patient had significant bleeding from surgical site and thus she became hypotensive and diallo limon was called and the patient required ICU transfer. The patient was given total 9 units of blood transfusion during that period and patient required repeat surgery by Dr. Zhang on that day. Patient remained in IMCU for a couple of days. She was getting hemodialysis as per Dr. Reyna. Dr. Yang saw this patient because patient w as in IMCU. Upon stabilization, patient was transferred to medical floor. Subsequently, patient's hemoglobin and hematocrit remained stable. She does not have any further bleeding. While in hospital, we also kep t on hold. Blood pressure medication as well as Plavix and patient is instructed to start all her [facility] medication if blood pressure goes above 130/80 and if she does not have any bleeding, then she can also resume Plavix. Patient was having fever and that is why we started Levaquin and Flagyl on discharge, we only continu ed with Levaquin. We did chest x-ray which showing pulmonary vascular congestion and that is why pat ient required extra dialysis while in hospital. At this point, patient is on room air. Her pain is under control. She does not have any further ble eding from any site at this point and patient is doing relatively well those she is at high risk for readmission. The patient is seen and examined at bedside today. Please see my progress note from today for furthe r detail.
--- NOTE | 2017-10-14 11:13 | PRG ---
DATE OF SERVICE: 10/14/2017 SUBJECTIVE: Ms. Sullivan is a 62-year-old black female with ESRD and was admitted for GI bleed. She h as undergone an endoscopy as well as hemorrhoidectomy. Her postop period was marred by GI bleeding a round the surgical site. Since that time she has received blood transfusion and she has gone reexplo ration of the hemorrhoidectomy, which much improvement. No complaints today. I am at the bedside, s upervising her dialysis. OBJECTIVE: VITAL SIGNS: Blood pressure 139/73, heart rate 79, respiratory rate 18, temperature 99, and pulse ox 93%. GENERAL: Noted to be awake, alert, comfortable, not in distress. SKIN: Adequate turgor. HEENT: She has a slightly pale conjunctivae, anicteric sclerae. NECK: No neck mass, no carotid bruits, no JVD. CHEST: No deformities. LUNGS: Clear breath sounds. No wheezing, no crackles. HEART: Normal sinus rhythm. No murmur, no gallop, no rubs. ABDOMEN: Globular, soft, nontender, no masses. EXTREMITIES: No edema, no deformities. MEDICATIONS: On 10/14/2017 was reviewed. LABORATORY DATA: 10/14/2017 - white count 6.1, hemoglobin 10.7. Sodium 138, potassium 3.6, chloride 100, carbon dioxide 29, BUN 15, creatinine 4.67, glucose 86, and calcium 8.9. ASSESSMENT AND PLAN: 1. Status post gastrointestinal bleed much improved. P.r.n. blood transfusion. Hemoglobin is now n oted at 10. 2. Chronic anemia - on weekly Epogen. 3. End-stage renal disease, stable. Tolerating current hemodialysis regimen. She did receive extra dialysis for fluid removal. She is currently undergoing her regular maintenance hemodialysis. Due to the recent gastrointestinal bleed, no use of heparin. Overall, agree with current management.
--- NOTE | 2017-10-14 12:40 | PQF ---
MARCY VEGA RICHARD D MD [id number] CLINICAL DOCUMENTATION IMPROVEMENT CLARIFICATION FORM: ICD-10 Updated PLEASE DO AN ADDENDUM TO THE PROGRESS NOTE WITH ANY DOCUMENTATION UPDATES OR ADDITIONS AND CARRY THROUGH TO DC SUMMARY. THANK YOU. DATE: 10-14-17 ATTN: DR. LYNN Please exercise your independent, professional judgment in responding to the clarification form. Clinical indicators are provided on the bottom of this form for your review Please check appropriate box(s): [ ] Hypovolemic Shock [ ] Cardiogenic Shock [ ] Hemorrhagic Shock due to surgery: HEMORRHOIDECTOMY [ ] Shock Unspecified [ ] Other diagnosis [ ] Unable to determine For continuity of documentation, please document condition throughout progress notes and discharge summary. Thank You. CLINICAL INDICATORS - SIGNS / SYMPTOMS / LABS Hbg Hct 3-9 8.9 26.2 3-10 5.7 17.7 POST-HEMORRHOIDECTOMY BLEEDING / SHOCK - OP NOTE 3 SHANE 3 CODE GREEN:3- BP 89/49; HR 120 - 140 PASSED CLOTS O2 SAT DECREASED TO 80'S 3-10 EVENT NOTE: HYPOTENSIVE/ LETHARGIC W/ BLEEDING FROM SURGICAL SITE. RISK FACTORS 3-9 OP NOTE: SEVERE ANEMIA, PROLAPSED BLEEDING HEMORRHOIDS, GRADE 4 PPH STAPLED HEMORRHOIDECTOMY, EXCISION OF ANTERIOR LARGE HEMORRHOIDAL PROLAPSING COMPLEX TREATMENTS: TO IMCU NS 500 ML BOLUS 3-10 2 UNITS PRBC - TOTAL OF 9 UNITS DURING THIS ADMISSION 3-10 OP NOTE: LIGATION OF POSTOPERATIVE BLEEDING SITES W/ ANNITA LINE THANK YOU, YADIRA (This form is maintained as a part of the permanent medical record) 2014 [employer]. All Rights Reserved Yadira Valentin RN, BS [email or web address] [employer] [facility]
[2017-10-14 13:48] VITALS: BP 149/84; TEMP 98.3
== END 2017-10-14 16:06 | disposition home or self-care (01) | DRG 347 ==
LOC: ERS 04:36 → ERHOLD 08:09 → 2NO 13:14 → IMCU/EMU 10-09 22:47 → T4-A 10-11 13:43
PROVIDERS: ADMIT Internal Medicine; ATTEND Internal Medicine
PROC: 30233N1 Transfusion of Nonautologous Red Blood Cells into Peripheral Vein, Percutaneous Approach (ICD-10-PCS; 2017-10-07)
PROC: 5A1D70Z Performance of Urinary Filtration, Intermittent, Less than 6 Hours Per Day (ICD-10-PCS; 2017-10-07)
PROC: 0DB68ZX Excision of Stomach, Via Natural or Artificial Opening Endoscopic, Diagnostic (ICD-10-PCS; 2017-10-08)
PROC: 0W3P8ZZ Control Bleeding in Gastrointestinal Tract, Via Natural or Artificial Opening Endoscopic (ICD-10-PCS; 2017-10-08)
PROC: 06BY3ZC Excision of Hemorrhoidal Plexus, Percutaneous Approach (ICD-10-PCS; 2017-10-09)
PROC: 06HY33Z Insertion of Infusion Device into Lower Vein, Percutaneous Approach (ICD-10-PCS; principal; 2017-10-10)
PROC: 0W3P7ZZ Control Bleeding in Gastrointestinal Tract, Via Natural or Artificial Opening (ICD-10-PCS; 2017-10-10)
PROC: 0DBP8ZX Excision of Rectum, Via Natural or Artificial Opening Endoscopic, Diagnostic (ICD-10-PCS; 2017-10-10)
PROC: 5A1D70Z Performance of Urinary Filtration, Intermittent, Less than 6 Hours Per Day (ICD-10-PCS; 2017-10-10)
PROC: 5A1D70Z Performance of Urinary Filtration, Intermittent, Less than 6 Hours Per Day (ICD-10-PCS; 2017-10-12)
PROC: 5A1D70Z Performance of Urinary Filtration, Intermittent, Less than 6 Hours Per Day (ICD-10-PCS; 2017-10-13)
PROC: 5A1D70Z Performance of Urinary Filtration, Intermittent, Less than 6 Hours Per Day (ICD-10-PCS; 2017-10-14)
DX: K64.3 Fourth degree hemorrhoids (principal); N18.6 End stage renal disease; I13.2 Hypertensive heart and chronic kidney disease with heart failure and with stage 5 chronic kidney disease, or end stage renal disease; K55.21 Angiodysplasia of colon with hemorrhage; I95.89 Other hypotension; I24.8 Other forms of acute ischemic heart disease; I27.20 Pulmonary hypertension, unspecified; D62 Acute posthemorrhagic anemia; I50.32 Chronic diastolic (congestive) heart failure; N25.81 Secondary hyperparathyroidism of renal origin; K91.840 Postprocedural hemorrhage of a digestive system organ or structure following a digestive system procedure; E87.70 Fluid overload, unspecified; F17.210 Nicotine dependence, cigarettes, uncomplicated; B18.2 Chronic viral hepatitis C; D63.1 Anemia in chronic kidney disease; K64.9 Unspecified hemorrhoids; Z88.0 Allergy status to penicillin; Z91.041 Radiographic dye allergy status; Z99.2 Dependence on renal dialysis; E78.5 Hyperlipidemia, unspecified; I25.10 Atherosclerotic heart disease of native coronary artery without angina pectoris; Z95.5 Presence of coronary angioplasty implant and graft; Z79.01 Long term (current) use of anticoagulants; D75.89 Other specified diseases of blood and blood-forming organs; K57.30 Diverticulosis of large intestine without perforation or abscess without bleeding; K64.8 Other hemorrhoids; K64.4 Residual hemorrhoidal skin tags; I73.9 Peripheral vascular disease, unspecified; I07.1 Rheumatic tricuspid insufficiency; J44.9 Chronic obstructive pulmonary disease, unspecified; K29.60 Other gastritis without bleeding
CPT/HCPCS: 36415; 36430; 71045; 80048; 80053; 80069; 81001; 82274; 82553; 82728; 82805; 83540; 83550; 84484; 85025; 86850; 86900; 86901; 88304; 88305; 88312; 90935; 93005; 93306; 94640; 94760; 96374; J2270; A4216; C9113; G0257; G8978-GP-CJ; G8979-GP-CJ; G8980-GP-CJ; J0360; J0670; J1170; J1644; J1956; J2001; J2250; J2405; J2704; J3010; J7620; P9016; Q4081

== ENCOUNTER 2017-10-23 09:12 | Inpatient (IN) | payer MEDICARE, OTHER ==
[~2017-10-23 09:12] MED LIST: Gentamicin Sulfate 80 MG in Premix Bag 1 BAG IVPB SCH
[2017-10-23 11:03] LABS: ALT (SGPT) 7 U/L (8-55); AST (SGOT) 22 U/L (5-34); Albumin 3.1 g/dL (3.4-4.8); Alkaline Phosphatase 150 U/L (40-150); Anion Gap 14 mmol/L (10-20); BUN (Urea Nitrogen) 8 mg/dL (9.8-20.1); Bilirubin, Total 0.7 mg/dL (0.2-1.2); Calc. Creatinine Clearance 0 mL/min (70-130); Calcium 8.9 mg/dL (7.8-10.44); Carbon Dioxide 31 mmol/L (23-31); Chloride 99 mmol/L (98-107); Estimated GFR-MDRD 19; Globulin 3.4 g/dL (2.4-3.5); Glucose 90 mg/dL (80-115); Lipase 26 U/L (8-78); Potassium 3.3 mmol/L (3.5-5.1); Protein, Total 6.5 g/dL (6.0-8.3); Sodium 141 mmol/L (136-145)
[2017-10-23 11:06] LABS: Troponin I 0.165 ng/mL (< 0.028)
[2017-10-23 11:12] LABS: Hemoglobin 12.5 g/dL (12.0-16.0); Mean Corpuscular HGB CONC 31.1 g/dL (32.0-36.0); Mean Corpuscular Hemoglobin 29.8 pg (27.0-31.0); Mean Corpuscular Volume 95.9 fl (81.0-99.0); Platelet Count 261 thou/uL (130-400); RBC Distribution Width 16.6 % (11.5-14.5); Red Blood Cell (RBC) Count 4.19 mill/uL (4.20-5.40); White Blood Cell (WBC) Count 5.3 thou/uL (4.8-10.8)
--- NOTE | 2017-10-23 11:23 | CT ---
ABDOMEN AND PELVIC CT SCAN WITHOUT IV CONTRAST: History: 62-year-old female with history of chest pain and abdominal pain. Dialysis. Prior hemorrhoidectomy an d another abdominal surgery last week. Blood in rectum following surgery. Comparison: 03-14-12 FINDINGS: There is cardiomegaly. Small bilateral pleural effusions. There is some bilateral vascular congestive changes. There are some linear parenchymal changes in the right middle lobe having the appearance of probable scarring. There is also minimal linear changes in the lingula. These parenchymal changes do not appear significantly changed when compared to a 10-12-17 chest x-ray. Status post cholecystectomy . The liver, gallbladder, spleen, and adrenal glands are unremarkable. The kidneys are very markedly small and have a chronic appearance consistent with long standing chronic renal disease. Extensive at herosclerotic calcification changes of the abdominal aorta and great vessels. There is evidence for p ost-surgical changes in the region of the rectum with some prominent perirectal and presacral edema a nd abnormal fat stranding with what may be some additional free fluid within the pelvis presumably se condary to recent surgery in this location. There is evidence for a large mass involving the re ctum above the level of the surgery. This mass measures approximately 6.0 cm transversely and cranioc audal dimension and approximately 14 cm in anteroposterior dimension. It is markedly narrowing the kelsey men of the distal sigmoid and rectum with the appearance suggesting that this is a large intramural m ass, probably a large intramural hematoma. There is some small punctate gas collections in the most c audal portion of this presumed hematoma raising concern for injury at or somewhat above the site of t he surgery resulting in the large presumed hematoma as well as some gas extending within the intramur al region as well. The lumen appears to be markedly narrowed and displaced to the left. There is a no rmal appearing appendix. No evidence for a drainable abscess. IMPRESSION: Recent post-operative changes at the region of the lower rectum with some prominent perirectal edemat ous changes and fat stranding and fluid as well as some minimal free fluid within the pelvis. Large mass in the rectosigmoid portion of the colon which appears to be markedly displacing and narrow ing the lumen. This mass is of heterogeneous attenuation, probably representing a large intramural he matoma. There is some minimal punctate gas noted within this collection as well, raising concern for injury of the mucosa presumably at or above the level of the surgery resulting in the intramural gregg marimar and small tiny punctate areas of gas. Bilateral pleural effusions and bibasilar pulmonary parenc hymal changes. Stable cardiomegaly. No evidence for drainable abscess. Findings were discussed with Akilah Peter in the Emergency Department at 10:40 a.m., as well as with Dr. Zhang at approximately 10: 45 p.m. Code CR POS: OFF
[2017-10-23 12:00] LABS: Band 1 % (5-11); Eosinophils 4 % (0-10); Lymphocytes 16 % (21-51); MDiff Complete? YES; Monocytes 7 % (0-10); Neutrophil 71 % (42-75); RBC Morphology Normal; Reactive Lymphocytes 1 % (0-10)
[2017-10-23] MEDS ORDERED: Morphine 4 MG/ML VIAL ONE (12:17)
[2017-10-23] MEDS ORDERED: Ondansetron HCl/PF 4 MG/2 ML Vial ONE (12:18)
[2017-10-23 14:26] LABS: Troponin I 0.161 ng/mL (< 0.028)
--- NOTE | 2017-10-23 15:35 | HP ---
PRIMARY CARE PROVIDER: Abhay Roman MD CHIEF COMPLAINT: Abdominal pain. HISTORY OF PRESENT ILLNESS: Ms. Sullivan is a pleasant 62-year-old lady who was seen at [facility] on 10/23/2017. She was hospitalized at this facility from 10/08/2017-10/14/2017. During that hospitalization, she u nderwent hemorrhoidectomy for bleeding from external hemorrhoid. She reports that she continued to h ave a small amount of rectal bleeding after discharge. She is a hemodialysis patient and went for he modialysis today. Towards the end of the hemodialysis, she felt pain over her chest, which she says usually happens to her with dialysis. She also felt pain over her abdomen. She reports that the [address] st pain resolved. She describes abdominal pain as a burning sensation all over her abdomen, unable t o rate the pain. No known aggravating or relieving factors, not accompanied by any other symptoms. She came to the emergency room because of ongoing abdominal pain. REVIEW OF SYSTEMS: The following complete review of systems was negative, unless otherwise mentioned in the HPI or below: Constitutional: Weight loss or gain, ability to conduct usual activities. Sk in: Rash, itching. Eyes: Double vision, pain. ENT/Mouth: Nose bleeding, neck stiffness, pain, te nderness. Cardiovascular: Palpitations, dyspnea on exertion, orthopnea. Respiratory: Shortness of breath, wheezing, cough, hemoptysis, fever or night sweats. Gastrointestinal: Poor appetite, abdom inal pain, heartburn, nausea, vomiting, constipation, or diarrhea. Genitourinary: Urgency, frequenc y, dysuria, nocturia. Musculoskeletal: Pain, swelling. Neurologic/Psychiatric: Anxiety, depressio n. Allergy/Immunologic: Skin rash, bleeding tendency. PAST MEDICAL HISTORY: Significant for end-stage renal disease, chronic anemia hemodialysis on Thursday , Thursday, and Thursday, interferon treatment, chronic hepatitis C, hypertension, dyslipidemia, coron queenie artery disease, status post PCI with stent in 2016, hyperparathyroidism, dyslipidemia, and hemorr hoids. PAST SURGICAL HISTORY: Significant for hemorrhoidectomy, cholecystectomy, left arm fistula, cardiac catheterization with stent in 2016 and EGD and colonoscopy. SOCIAL HISTORY: She smokes half a pack of cigarettes a day. She drinks alcohol occasionally. She d enies recreational drug use. FAMILY HISTORY: Significant for end-stage renal disease in her brother. ALLERGIES: IODINATED CONTRAST MEDIA, PENICILLIN. CURRENT MEDICATIONS: Folic acid 0.4 mg daily, clonidine 0.2 mg 2 times a day, sevelamer 2400 mg 3 ti mes a day, atorvastatin 40 mg daily, iron 325 mg daily, pantoprazole 40 mg daily, Plavix 75 mg daily, losartan 100 mg daily. PHYSICAL EXAMINATION: GENERAL: Ms. Sullivan is awake and alert, not in acute distress. VITAL SIGNS: Blood pressure is 137/89, pulse is 88. She is breathing at rate of 18, and saturating in the high 90s on 2 liters of oxygen. Temperature is 99.6 degrees Fahrenheit. EYES: No scleral icterus. No conjunctival pallor. ENT: Moist mucosal membranes, no oropharyngeal erythema or exudates. NECK: Supple, nontender, normal range of movement. Trachea is midline. RESPIRATORY: Accessory muscles of breathing are not active. Chest wall movements are symmetric bila terally. LUNGS: Clear to auscultation without wheeze, rhonchi or crepitations. CARDIOVASCULAR: S1 and S2 are heard, regular. Peripheral pulses palpable. No carotid bruit, no per icardial rub. ABDOMEN: Soft, nontender, bowel sounds heard, no hepatomegaly, no splenomegaly. NEUROLOGIC: Cranial nerves II-XII intact. Deep tendon reflexes are 2+. MUSCULOSKELETAL: Power is 5/5 in all 4 extremities, normal range of movement at all major extremity joints. LYMPHATIC: No cervical lymphadenopathy. SKIN: No rashes or subcutaneous nodules. PSYCHIATRIC: Normal mood, normal affect. The patient is oriented to person, place, and time. LABORATORY DATA AND INVESTIGATIONS: Ms. Sullivan's labs and investigations were reviewed. I reviewed her electrocardiogram, which shows normal sinus rhythm, no ST changes to suggest an acute coronary sy ndrome. I also reviewed CT scan of abdomen and pelvis, which shows large intramural hematoma in the region of the lower rectum. Laboratory investigations show normal sodium, decreased potassium of 3.3 , creatinine 2.97, normal total bilirubin, normal AST, decreased ALT of 7 and normal alkaline phospha tase. Troponin I is in the indeterminate range at 0.165. She has had indeterminate elevation of tro ponin I in the past as well. She has a normal white count, normal hemoglobin and normal platelet cou nt. ASSESSMENT AND PLAN: Ms. Sullivan is a pleasant 62-year-old lady who was seen at [facility] on 10/23/2017. Her problem list includes: 1. Abdominal pain: Ms. Sullivan is presenting with abdominal pain and rectal bleeding. She was found to have a large intramural hematoma in the rectal region. Her case has been discussed by the emerge ncy room physician with General Surgery service. Patient will be admitted to Hospitalist Service for further management and General Surgery service will be consulted. 2. Elevated troponin: She does report chest discomfort towards the end of dialysis and reports that it is usual for her. We will trend troponins for now. 3. End-stage renal disease, on dialysis. Nephrology service will be consulted for maintenance hemod ialysis. 4. Hypertension: Monitor vital signs, titrate antihypertensives as needed. 5. Dyslipidemia: Continue statin. 6. Coronary artery disease. Continue Plavix. 7. Chronic hepatitis C. Stable. Many thanks for allowing me to participate in Ms. Sullivan's care. Please feel free to contact me with any questions or concerns. LEVEL OF RISK: High. LEVEL OF COMPLEXTY: High.
[2017-10-23] MEDS ORDERED: Vancomycin HCl 1.25 GM in Sodium Chloride 0.9% 250 ML 250 ML IVPB SCH (16:45)
[2017-10-23] MEDS ORDERED: Vancomycin HCl 500 MG in Sodium Chloride 0.9% 100 ML IVPB SCH (16:45)
[2017-10-23] MEDS ORDERED: Vancomycin HCl 1 GM in Premix Bag 1 BAG IVPB SCH (16:45)
[2017-10-23] MEDS ORDERED: Vancomycin HCl 750 MG in Sodium Chloride 0.9% 250 ML 250 ML IVPB SCH (16:45)
[2017-10-23] MEDS ORDERED: HOLD VANCOMYCIN FOR LEVEL >20 FS SCH (16:45)
[2017-10-23] MEDS ORDERED: Vancomycin Sliding Scale 1 EACH FS ONE (16:45)
[2017-10-23 17:17] LABS: Troponin I 0.164 ng/mL (< 0.028)
[2017-10-23] MEDS ORDERED: Gentamicin Sulfate 80 MG in Premix Bag 1 BAG IVPB SCH (18:00)
--- NOTE | 2017-10-23 18:07 | HP ---
HISTORY OF PRESENT ILLNESS: Ms. Dai Sullivan is a 62-year-old thin black female, 5 foot, 120 poun ds, 24 BMI, end-stage renal disease on dialysis and hepatitis C. The patient had anemia with rectal bleeding through hemorrhoids and underwent endoscopy with Dr. Holguin and Dr. Knutson. I saw her on 03/2018 and on 10/20/2017, patient underwent PPH stapled hemorrhoidectomy and excision of anterior la rge hemorrhoidal prolapse and complex. On 10/10/2017, she presented with bleeding at 3:00 in the [facility] and a central line triple lumen catheter was placed and she underwent exploration and ligation o f staple line bleeding. She had some disruption of the mucosa and this was closed. Again, this was performed at 10/10/2017 about 3 in the morning. The patient eventually was discharged home. She was undergoing dialysis this morning. She is complaining of lower abdominal pain. She was brought to [facility] emergency room and her white count was noted to be 5 and hemoglobin 12. Electrolytes are unremark able. Differential was unremarkable. She is noted to have some lower abdominal tenderness, although she states that the pain seemed to improve when she had a bowel movement before CAT scan and improve d with a bowel movement after the CAT scan. Her CAT scan of the abdomen and pelvis revealed probably intramural hematoma of the rectosigmoid with some air down around the staple line. The patient repo rts having passed some clots occasionally. She was also noted to have extensive arteriosclerotic dis ease of aortoiliac vessels. ALLERGIES: IODINE and PENICILLINS. TOBACCO: Half pack a day. ALCOHOL: Occasionally. PAST MEDICAL HISTORY: End-stage renal disease, on dialysis; chronic anemia, dialysis Thursday, , and Thursday; chronic hepatitis C; interferon treatment history; dyslipidemia; coronary artery dise ase; status post PCI with stent in 2016 and hyperparathyroidism. PAST SURGICAL HISTORY: Hemorrhoidectomy, cholecystectomy, left arm fistula, cardiac catheterization, stent 2016, EGD and colonoscopy recently, hemorrhoidectomy recently with reexploration for bleeding. PHYSICAL EXAMINATION: VITAL SIGNS: Height 5 foot. [id number] pounds. BMI 24, heart rate 93 and blood pressure 143/91. HEENT: Unremarkable. LUNGS: Clear to auscultation. CARDIAC: Regular rate and rhythm without murmur or gallop. ABDOMEN: Soft, nontender and nondistended. Good bowel sounds, minimal tenderness in her lower pelvi s. No guarding. Rectal exam not performed. ASSESSMENT AND PLAN: Post-PPH stapled hemorrhoidectomy bleeding with subsequent intramural hematoma and a small focus of air probably residual from her past reexploration and suture of her postoperativ e bleeding. At this point, I agree with admission observation. No surgical intervention is recommen ded at this time. Consideration of deterioration and fevers and increased abdominal pain develops co uld be laparoscopic colostomy, but I do not think this is necessary at this time, would keep her on l iquids and give her intravenous antibiotics and observe her over the next few days. Dr. Jonas is cov ering over the weekend and will be seeing her in my stead. I will be back on Thursday.
[2017-10-23 18:20] LABS: Vancomycin, Trough Less than 1.1 ug/mL
[2017-10-23] MEDS ORDERED: Potassium Chloride 20 MEQ TAB PO SCH (20:15)
[2017-10-23] MEDS: Vancomycin HCl 1 GM in Premix Bag 1 BAG IVPB SCH (21:49)
[2017-10-24] MEDS: Acetaminophen 325 MG TAB PO PRN ×2 (00:58→07:09)
[2017-10-24] MEDS ORDERED: diphenhydrAMINE 25 MG CAP PO SCH (01:15)
[2017-10-24 05:41] LABS: #Eosinphils 0.2 thou/uL (0.0-0.7); #Lymphocytes 0.8 thou/uL (1.20-3.40); #Monocytes 0.7 thou/uL (0.11-0.59); #Neutrophils 3.1 thou/uL (1.40-6.50); %Basophils 0.6 % (0.0-1.0); %Eosinophils 4.3 % (0.0-10.0); %Lymphocytes 15.7 % (21.0-51.0); %Monocytes 14.2 % (0.0-10.0); %Neutrophils 65.1 % (42.0-75.0); Hemoglobin 11.1 g/dL (12.0-16.0); Mean Corpuscular HGB CONC 31.4 g/dL (32.0-36.0); Mean Corpuscular Hemoglobin 30.5 pg (27.0-31.0); Mean Corpuscular Volume 97.2 fl (81.0-99.0); Mean Platelet Volume 7.7 fL (7.4-10.4); Platelet Count 223 thou/uL (130-400); RBC Distribution Width 16.2 % (11.5-14.5); Red Blood Cell (RBC) Count 3.65 mill/uL (4.20-5.40); White Blood Cell (WBC) Count 4.8 thou/uL (4.8-10.8)
[2017-10-24 05:55] LABS: Anion Gap 11 mmol/L (10-20); BUN (Urea Nitrogen) 15 mg/dL (9.8-20.1); Calc. Creatinine Clearance 12 mL/min (70-130); Calcium 9.3 mg/dL (7.8-10.44); Carbon Dioxide 33 mmol/L (23-31); Chloride 97 mmol/L (98-107); Estimated GFR-MDRD 12; Glucose 93 mg/dL (80-115); Sodium 137 mmol/L (136-145)
[2017-10-24] MEDS ORDERED: Polyethylene Glycol 3350 17 GM Packet PO SCH (09:00)
--- NOTE | 2017-10-24 10:46 | PRG ---
DATE OF SERVICE: 10/24/2017 SUBJECTIVE: Ms. Sullivan is a 62-year-old black female with ESRD and was admitted for abdominal pain. She had a CAT scan that was done yesterday. The CAT scan revealed most likely intramural hematoma o f the rectosigmoid with some air down around the staple line. She was evaluated by Surgery. The hernan n is simply to observe her. We are consulted for her maintenance hemodialysis. She did undergo almo complete treatment of dialysis in the outpatient clinic. My plan is to resume dialysis Thursday, sh e is still complains of occasional abdominal pain. OBJECTIVE: VITAL SIGNS: Blood pressure is 99/56, heart rate 88, respiratory rate 18, temperature 97.6, and puls e ox 92%. GENERAL: Noted to be awake, alert, comfortable, not in distress. SKIN: Adequate turgor. HEENT: Pinkish conjunctivae. Anicteric sclerae. NECK: No neck mass, no carotid bruits, no JVD. CHEST: No deformities. LUNGS: Clear breath sounds. HEART: Normal sinus rhythm. No murmur, no gallops, no rubs. ABDOMEN: Globular, soft, nontender, no masses. EXTREMITIES: No edema, no deformities. MEDICATIONS: Medications of 10/24/2017 was reviewed. LABORATORY DATA: On 10/24/2017 - white count 4.8, hemoglobin 11.1. Sodium 137, potassium 4, chlorid e 97, carbon dioxide 33, BUN 15, creatinine 4.48, glucose 93, and calcium 9.3. ASSESSMENT AND PLAN: 1. End-stage renal disease, stable. No indication for any emergent hemodialysis. We will resume mara her hemodialysis this coming Thursday. My plan is to continue to do a heparin-free dialysis. 2. Abdominal pain - being observed by surgery. Dr. Jonas is covering for Dr. Zhang. 3. Anemia, stable. No indication for any Epogen at the present time.
[2017-10-24 10:52] VITALS: BMI 24.8
[2017-10-24] MEDS ORDERED: HYDROcodone/Acetaminophen 5/325 mg Tablet PO PRN (12:54)
[2017-10-24] MEDS ORDERED: HYDROcodone/Acetaminophen 10/325 mg Tablet PO PRN (12:54)
--- NOTE | 2017-10-24 13:05 | PDOC.PN ---
- Subjective Encounter Start Date: 10/24/17 Encounter Start Time: 13:03 Ms. Sullivan was seen today in follow-up. She is complaining of rectal pain. She also continues to note some bleeding from the rectal area. - Objective MAR Reviewed: Yes Vital Signs & Weight: Vital Signs (12 hours) Temp Pulse Resp BP Pulse Ox 10/24/17 11:51 98.4 F 84 18 132/64 98 10/24/17 07:52 97.6 F 88 18 99/56 L 92 L 10/24/17 04:20 97.5 F L 88 22 H 93/60 94 L Weight Admit Weight 128 lb Weight 131 lb 9.6 oz I&O: 10/23/17 10/24/17 10/25/17 06:59 06:59 06:59 Intake Total 794 Output Total 250 Balance 544 Result Diagrams: 10/24/17 04:45 10/24/17 04:45 Phys Exam - Physical Examination HEENT: PERRLA Respiratory: no wheezing, no rales, no rhonchi, clear to auscultation bilateral Cardiovascular: RRR, no significant murmur, no rub Gastrointestinal: soft, no distention, positive bowel sounds + diffuse tenderness Musculoskeletal: no edema Dx/Plan (1) Hematoma of rectum Code(s): S36.62XA - CONTUSION OF RECTUM, INITIAL ENCOUNTER Status: Acute (2) Bleeding external hemorrhoids Code(s): K64.4 - RESIDUAL HEMORRHOIDAL SKIN TAGS Status: Acute (3) Chronic diastolic (congestive) heart failure Code(s): I50.32 - CHRONIC DIASTOLIC (CONGESTIVE) HEART FAILURE Status: Chronic (4) ESRD (end stage renal disease) on dialysis Code(s): N18.6 - END STAGE RENAL DISEASE; Z99.2 - DEPENDENCE ON RENAL DIALYSIS Status: Chronic (5) HTN (hypertension) Code(s): I10 - ESSENTIAL (PRIMARY) HYPERTENSION Status: Chronic (6) PVD (peripheral vascular disease) Code(s): I73.9 - PERIPHERAL VASCULAR DISEASE, UNSPECIFIED Status: Chronic - Plan * Rectal Hematoma, following a hemorrhoidectomy- conservative management- for better pain control will add [place] * Continue to monitor H&H * ESRD- stable with dialysis * HTN- blood pressure is stable * Chronic combined systolic and diastolic heart failure- stable
[2017-10-24] MEDS ORDERED: PROVENTIL INHALER 6.7 G (200 INHALATIONS) INH PRN (17:13)
[2017-10-24] MEDS ORDERED: Meclizine HCl 25 MG TAB PO PRN (17:13)
[2017-10-24] MEDS ORDERED: Polyethylene Glycol 3350 17 GM Packet PO PRN (17:14)
[2017-10-24] MEDS: Atorvastatin Calcium 40 MG TAB PO SCH (20:51)
[2017-10-24] MEDS: cloNIDine 0.1 MG TAB PO SCH (20:51)
[2017-10-25 06:23] LABS: #Eosinphils 0.3 thou/uL (0.0-0.7); #Lymphocytes 0.6 thou/uL (1.20-3.40); #Monocytes 0.5 thou/uL (0.11-0.59); #Neutrophils 2.1 thou/uL (1.40-6.50); %Eosinophils 9.3 % (0.0-10.0); %Lymphocytes 17.8 % (21.0-51.0); %Monocytes 13.7 % (0.0-10.0); %Neutrophils 58.2 % (42.0-75.0); Hemoglobin 10.7 g/dL (12.0-16.0); Mean Corpuscular HGB CONC 32.1 g/dL (32.0-36.0); Mean Corpuscular Hemoglobin 30.8 pg (27.0-31.0); Mean Platelet Volume 7.8 fL (7.4-10.4); Platelet Count 225 thou/uL (130-400); RBC Distribution Width 16.5 % (11.5-14.5); Red Blood Cell (RBC) Count 3.48 mill/uL (4.20-5.40); White Blood Cell (WBC) Count 3.6 thou/uL (4.8-10.8)
[2017-10-25 06:42] LABS: Anion Gap 12 mmol/L (10-20); BUN (Urea Nitrogen) 22 mg/dL (9.8-20.1); Calc. Creatinine Clearance 9 mL/min (70-130); Calcium 8.9 mg/dL (7.8-10.44); Carbon Dioxide 29 mmol/L (23-31); Chloride 100 mmol/L (98-107); Estimated GFR-MDRD 8; Glucose 88 mg/dL (80-115); Potassium 4.2 mmol/L (3.5-5.1); Sodium 137 mmol/L (136-145)
[2017-10-25] MEDS: Sevelamer Carbonate 800 MG TAB PO SCH ×3 (09:46→17:43)
[2017-10-25] MEDS: Clopidogrel Bisulfate 75 MG TAB PO SCH (09:47)
[2017-10-25] MEDS: cloNIDine 0.1 MG TAB PO SCH ×2 (09:47→21:44)
[2017-10-25] MEDS: Losartan 25 MG TAB PO SCH (09:47)
[2017-10-25] MEDS: Folic Acid/Vit B Comp W-C PO SCH (09:47)
[2017-10-25] MEDS: Ferrous Sulfate 325 MG TAB PO SCH (09:47)
--- NOTE | 2017-10-25 10:29 | PRG ---
DATE OF SERVICE: 10/25/2017 SERVICE: Renal Medicine. SUBJECTIVE: Ms. Sullivan is a 62-year-old black female with ESRD and was admitted for abdominal pain. She was found on CT scan to have edematous changes around the rectal area. Please note, she is post -surgery for hemorrhoidectomy. Surgery evaluated her and recommendation is conservative management and observation. Her abdominal p ain is actually much improved. She voices no new complaints today. She is feeling better. OBJECTIVE: VITAL SIGNS: Blood pressure is 124/71, heart rate 84, respiratory 16, temperature 97.6, pulse ox 96% . GENERAL: Noted to be awake, alert, comfortable, not in distress. SKIN: Adequate turgor. HEENT: Pinkish conjunctivae, anicteric sclerae. NECK: No neck mass, no carotid bruits, no JVD. CHEST: No deformities. LUNGS: Clear breath sounds. No wheezing, no crackles. HEART: Normal sinus rhythm. No murmur, no gallops or rubs. ABDOMEN: Globular, soft, nontender, no masses. EXTREMITIES: No edema. MEDICATIONS: Of 10/25/2017 was reviewed. LABORATORY DATA: Of 10/25/2017, white count 3.6, hemoglobin 10.7, hematocrit 33.4, sodium 137, potas sium 4.2, chloride 100, carbon dioxide 29, BUN 22, creatinine 6.29, glucose 88, calcium 8.9. ASSESSMENT AND PLAN: 1. End-stage renal disease, stable. No indication for emergent hemodialysis. The patient is schedu led for hemodialysis in a.m. if the patient is still here. 2. Abdominal pain, resolved. Surgery is following. No indication for any acute surgical interventi on. 3. Anemia, stable. No indication for any Epogen at the present time. Recheck base met and CBC in a.m.
--- NOTE | 2017-10-25 15:26 | PDOC.PN ---
- Subjective Encounter Start Date: 10/25/17 Encounter Start Time: 15:23 Ms. Sullivan was seen today in follow-up. She says the rectal pain adela little better, and she also has less bleeding today. - Objective MAR Reviewed: Yes Vital Signs & Weight: Vital Signs (12 hours) Temp Pulse Resp BP BP Pulse Ox 10/25/17 12:00 98.0 F 77 18 109/58 L 10/25/17 09:47 124/71 10/25/17 07:45 97.6 F 84 16 124/71 96 10/25/17 05:18 92 L 10/25/17 04:02 98.3 F 78 15 121/75 92 L Weight Admit Weight 128 lb Weight 132 lb 6.4 oz I&O: 10/24/17 10/25/17 10/26/17 06:59 06:59 06:59 Intake Total 794 960 Output Total 250 Balance 544 960 Result Diagrams: 10/25/17 05:46 10/25/17 05:46 Phys Exam - Physical Examination HEENT: PERRLA Respiratory: no wheezing, no rales, no rhonchi, clear to auscultation bilateral Cardiovascular: RRR, no significant murmur, no rub Gastrointestinal: soft, non-tender, positive bowel sounds Musculoskeletal: no edema Dx/Plan (1) Hematoma of rectum Code(s): S36.62XA - CONTUSION OF RECTUM, INITIAL ENCOUNTER Status: Acute (2) Bleeding external hemorrhoids Code(s): K64.4 - RESIDUAL HEMORRHOIDAL SKIN TAGS Status: Acute (3) Chronic diastolic (congestive) heart failure Code(s): I50.32 - CHRONIC DIASTOLIC (CONGESTIVE) HEART FAILURE Status: Chronic (4) ESRD (end stage renal disease) on dialysis Code(s): N18.6 - END STAGE RENAL DISEASE; Z99.2 - DEPENDENCE ON RENAL DIALYSIS Status: Chronic (5) HTN (hypertension) Code(s): I10 - ESSENTIAL (PRIMARY) HYPERTENSION Status: Chronic (6) PVD (peripheral vascular disease) Code(s): I73.9 - PERIPHERAL VASCULAR DISEASE, UNSPECIFIED Status: Chronic - Plan * Rectal Hematoma- bleeding is slowing per the patient * Chronic diastolic heart failure- compensated * HTN- blood pressure is stable * Recommendations per General Surgery.
[2017-10-25] MEDS ORDERED: diphenhydrAMINE 25 MG CAP PO PRN (18:47)
[2017-10-25] MEDS: Atorvastatin Calcium 40 MG TAB PO SCH (21:44)
[2017-10-26] MEDS: predniSONE 50 MG TAB PO SCH ×3 (01:59→13:18)
[2017-10-26 06:01] LABS: #Eosinphils 0.2 thou/uL (0.0-0.7); #Lymphocytes 0.5 thou/uL (1.20-3.40); #Monocytes 0.3 thou/uL (0.11-0.59); #Neutrophils 2.2 thou/uL (1.40-6.50); %Basophils 0.5 % (0.0-1.0); %Eosinophils 4.7 % (0.0-10.0); %Lymphocytes 16.6 % (21.0-51.0); %Monocytes 9.1 % (0.0-10.0); %Neutrophils 69.1 % (42.0-75.0); Mean Corpuscular HGB CONC 30.3 g/dL (32.0-36.0); Mean Corpuscular Hemoglobin 29.1 pg (27.0-31.0); Mean Platelet Volume 7.3 fL (7.4-10.4); Platelet Count 222 thou/uL (130-400); RBC Distribution Width 16.5 % (11.5-14.5); Red Blood Cell (RBC) Count 3.79 mill/uL (4.20-5.40); White Blood Cell (WBC) Count 3.2 thou/uL (4.8-10.8)
[2017-10-26 06:13] LABS: Anion Gap 12 mmol/L (10-20); BUN (Urea Nitrogen) 29 mg/dL (9.8-20.1); Calc. Creatinine Clearance 7 mL/min (70-130); Carbon Dioxide 31 mmol/L (23-31); Chloride 100 mmol/L (98-107); Estimated GFR-MDRD 6; Glucose 98 mg/dL (80-115); Potassium 5.1 mmol/L (3.5-5.1); Sodium 138 mmol/L (136-145)
--- NOTE | 2017-10-26 08:58 | PDOC.PN ---
- Subjective Encounter Start Date: 10/26/17 Encounter Start Time: 08:56 Ms. Sullivan was seen today in follow-up. She says she has some continued bleeding , and occasional blood clots. She still has some cramping abdominal pain, but says it is mild. - Objective MAR Reviewed: Yes Vital Signs & Weight: Vital Signs (12 hours) Temp Pulse Resp BP BP Pulse Ox 10/26/17 07:42 98.5 F 63 16 128/65 98 10/26/17 05:00 93 L 10/26/17 04:00 98.2 F 72 16 97/60 93 L 10/25/17 21:44 122/63 Weight Admit Weight 128 lb Weight 127 lb 6.4 oz I&O: 10/25/17 10/26/17 10/27/17 06:59 06:59 06:59 Intake Total 960 720 Balance 960 720 Result Diagrams: 10/26/17 05:13 10/26/17 05:13 Phys Exam - Physical Examination HEENT: PERRLA Respiratory: no wheezing, no rales, no rhonchi, clear to auscultation bilateral Cardiovascular: RRR, no significant murmur, no rub Gastrointestinal: soft, non-tender, positive bowel sounds Musculoskeletal: no edema Dx/Plan (1) Hematoma of rectum Code(s): S36.62XA - CONTUSION OF RECTUM, INITIAL ENCOUNTER Status: Acute (2) Bleeding external hemorrhoids Code(s): K64.4 - RESIDUAL HEMORRHOIDAL SKIN TAGS Status: Acute (3) Chronic diastolic (congestive) heart failure Code(s): I50.32 - CHRONIC DIASTOLIC (CONGESTIVE) HEART FAILURE Status: Chronic (4) ESRD (end stage renal disease) on dialysis Code(s): N18.6 - END STAGE RENAL DISEASE; Z99.2 - DEPENDENCE ON RENAL DIALYSIS Status: Chronic (5) HTN (hypertension) Code(s): I10 - ESSENTIAL (PRIMARY) HYPERTENSION Status: Chronic (6) PVD (peripheral vascular disease) Code(s): I73.9 - PERIPHERAL VASCULAR DISEASE, UNSPECIFIED Status: Chronic - Plan * Rectal Hematoma- her H&H has remained stable * CT scan of the abdomen is planned for today * Await further recommendations from General Surgery * ESRD- dialysis today * HTN- blood pressure is stable.
[2017-10-26] MEDS: Ferrous Sulfate 325 MG TAB PO SCH (09:01)
--- NOTE | 2017-10-26 09:16 | PRG ---
DATE OF SERVICE: 10/26/2017 SERVICE: Renal Medicine. SUBJECTIVE: Ms. Sullivan is a 62-year-old black female with ESRD, who was admitted for abdominal pain and rectal pain. She was found to have some mild rectal hematoma. Surgery is simply observing her. At the present time, there is no indication for any surgical intervention. I have scheduled her for her regular hemodialysis today. Due to her recent surgery, no heparin will be used with the dialysis. Fluid removal only as tolerated by the patient. The patient denies any chest pain or shortness of breath. PHYSICAL EXAMINATION: VITAL SIGNS: Blood pressure is 128/65, heart rate 60, respiratory rate 16, temperature 98.5, pulse o x 98%. GENERAL EXAM: Noted to be awake, alert, comfortable, not in distress. SKIN: Adequate turgor. HEENT: Pinkish conjunctivae. Anicteric sclerae. NECK: No neck mass, no carotid bruits, no JVD. CHEST: No deformities. LUNGS: Clear breath sounds. HEART: Normal sinus rhythm. No murmur, no gallops, no rubs. ABDOMEN: Globular, soft, nontender, no masses. EXTREMITIES: No edema, no deformities. Medications of 10/26/2017 reviewed. LABORATORY DATA: Laboratories of 10/26/2017, white count 3.2, hemoglobin 11. Sodium 138, potassium 5.1, chloride 100, carbon dioxide 31, BUN 29, creatinine 7.72, glucose 98, calcium 9.0. ASSESSMENT AND PLAN: 1. End-stage renal disease, stable. We will continue current hemodialysis regimen, Thursday, , and Thursday. I have arranged for 3-hour hemodialysis without any heparin use. We will remove flui d removal only as tolerated. 2. Rectal hematoma/rectal swelling - supportive care. 3. Repeat CAT scan today. If they give contrast with her we can do a short hemodialysis tomorrow. Overall, agree with current management. We will recheck another basic metabolic panel and CBC in a.m . ADDENDUM: If she gets discharged later today we can do the extra dialysis tomorrow.
[2017-10-26] MEDS ORDERED: SODIUM CHLORIDE 0.9% IVPB SCH (10:15)
[2017-10-26] MEDS ORDERED: GENTAMICIN SULFATE IVPB SCH (10:15)
[2017-10-26] MEDS: Sevelamer Carbonate 800 MG TAB PO SCH ×3 (10:54→18:48)
[2017-10-26] MEDS: Folic Acid/Vit B Comp W-C PO SCH (10:54)
[2017-10-26] MEDS: cloNIDine 0.1 MG TAB PO SCH ×2 (10:54→21:34)
[2017-10-26] MEDS: Clopidogrel Bisulfate 75 MG TAB PO SCH (10:54)
[2017-10-26] MEDS: Losartan 25 MG TAB PO SCH (10:54)
[2017-10-26] MEDS: Vancomycin HCl 1 GM in Premix Bag 1 BAG IVPB SCH (11:00)
[2017-10-26] MEDS ORDERED: diphenhydrAMINE 50 MG CAP PO SCH (13:30)
--- NOTE | 2017-10-26 17:23 | CT ---
CT ABDOMEN AND PELVIS WITH CONTRAST: Date: 10/26/17 HISTORY: Follow-up, CT scan on Thursday. Hematoma. COMPARISON: CT dated 10/23/17. FINDINGS: Lung bases are clear. No pericardial effusion. Heart size is enlarged Prior cholecystectomy. The kidneys are atrophic. Moderate atherosclerotic plaque throughout the aorto iliac system. Abnormal increased density of the medullary cavity with corticomedullary differentiation throughout t he skeleton to suggest chronic renal osteodystrophy. Small right pleural effusion. The large, likely intramural hematoma of the rectosigmoid, is similar. There is small volume presacra l fluid. There is a focal area of nonenhancement of the rectal wall craniad to the sutures from 7:00- 8:00. There is extension of high density material within the mesorectal fat on the right with small l ocules of gas. Moderate vascular calcifications of the aorta. IMPRESSION: Findings suggestive of a transmural defect of the rectal wall just craniad to the sutures from 7:00-8 :00 on the posterior right lateral wall with extension of high density material within the mesorectal fat. The intramural dissecting hematoma is similar in size. Nurse notified of findings via telephone at 1540 hours. CODE CR. POS: BLANCA
[2017-10-26] MEDS: Atorvastatin Calcium 40 MG TAB PO SCH (21:34)
[2017-10-27 05:36] LABS: #Lymphocytes 0.5 thou/uL (1.20-3.40); #Monocytes 0.5 thou/uL (0.11-0.59); #Neutrophils 3.3 thou/uL (1.40-6.50); %Eosinophils 0.3 % (0.0-10.0); %Lymphocytes 12.2 % (21.0-51.0); %Monocytes 11.2 % (0.0-10.0); %Neutrophils 76.3 % (42.0-75.0); Hemoglobin 11.3 g/dL (12.0-16.0); Mean Corpuscular Hemoglobin 30.4 pg (27.0-31.0); Mean Corpuscular Volume 94.8 fl (81.0-99.0); Mean Platelet Volume 7.3 fL (7.4-10.4); Platelet Count 247 thou/uL (130-400); RBC Distribution Width 16.4 % (11.5-14.5); Red Blood Cell (RBC) Count 3.71 mill/uL (4.20-5.40); White Blood Cell (WBC) Count 4.3 thou/uL (4.8-10.8)
[2017-10-27 05:39] LABS: Anion Gap 12 mmol/L (10-20); BUN (Urea Nitrogen) 20 mg/dL (9.8-20.1); Calc. Creatinine Clearance 11 mL/min (70-130); Carbon Dioxide 31 mmol/L (23-31); Chloride 100 mmol/L (98-107); Estimated GFR-MDRD 11; Glucose 129 mg/dL (80-115); Potassium 4.2 mmol/L (3.5-5.1); Sodium 139 mmol/L (136-145)
--- NOTE | 2017-10-27 08:56 | PRG ---
DATE OF SERVICE: 10/27/2017 SERVICE: Renal Medicine. SUBJECTIVE: Ms. Sullivan is a 62-year-old black female with known history of ESRD. She underwent a CT scan of the abdomen and pelvis yesterday with contrast. For this reason, she is undergoing extra 2- hour dialysis for contrast removal. CT scan did show findings of transmural defect of the rectal wall. In addition, the intramural disse cting hematoma is unchanged in size. Surgery is following this patient. No other complaints. No ab dominal pain. OBJECTIVE: VITAL SIGNS: Blood pressure is 130/66, heart rate 73, respiratory rate 18, temperature 97.8, pulse o x 94%. GENERAL: Awake, alert, comfortable, not in distress. SKIN: Adequate turgor. HEENT: She has pinkish conjunctivae, anicteric sclerae. NECK: No neck mass, no carotid bruits, no JVD. CHEST: No deformities. LUNGS: Clear breath sounds. HEART: Normal sinus rhythm. No murmur, no gallops, no rubs. ABDOMEN: Globular, soft, nontender, no masses. EXTREMITIES: No edema, no deformities. MEDICATIONS: Of 10/27/2017 was reviewed. LABORATORY DATA: Of 10/27/2017, white count 4.3, hemoglobin 11.3, sodium 139, potassium 4.2, chlorid e 100, carbon dioxide 31, BUN 20, creatinine 4.79, glucose 129, calcium 9. ASSESSMENT AND PLAN: 1. End-stage renal disease - stable. The patient is receiving extra hemodialysis for 2 hours for co ntrast removal. She underwent a CT scan with and without contrast yesterday. 2. Finding of a rectal hematoma - stable in size. 3. Transmural defect of the rectal wall - Surgery is following. Overall, agree with current management.
--- NOTE | 2017-10-27 09:34 | PDOC.PN ---
- Subjective Encounter Start Date: 10/27/17 Encounter Start Time: 14:11 Subjective: no pain but still having some blood pr - Objective MAR Reviewed: Yes Vital Signs & Weight: Vital Signs (12 hours) Temp Pulse Resp BP BP Pulse Ox 10/27/17 04:49 97.8 F 73 18 130/66 94 L 10/27/17 00:05 98.3 F 73 16 125/80 96 10/26/17 21:34 135/74 Weight Admit Weight 128 lb Weight 127 lb 6.4 oz I&O: 10/26/17 10/27/17 10/28/17 06:59 06:59 06:59 Intake Total 720 240 Output Total 1000 Balance 720 -760 Result Diagrams: 10/27/17 05:06 10/27/17 05:06 Phys Exam - Physical Examination Neck: no JVD Respiratory: clear to auscultation bilateral Cardiovascular: RRR, no significant murmur Gastrointestinal: soft, non-tender, positive bowel sounds Musculoskeletal: no edema Dx/Plan (1) Hematoma of rectum Code(s): S36.62XA - CONTUSION OF RECTUM, INITIAL ENCOUNTER Status: Acute (2) Anemia due to acute blood loss Code(s): D62 - ACUTE POSTHEMORRHAGIC ANEMIA Status: Acute (3) Bleeding external hemorrhoids Code(s): K64.4 - RESIDUAL HEMORRHOIDAL SKIN TAGS Status: Acute (4) HTN (hypertension) Code(s): I10 - ESSENTIAL (PRIMARY) HYPERTENSION Status: Chronic (5) PVD (peripheral vascular disease) Code(s): I73.9 - PERIPHERAL VASCULAR DISEASE, UNSPECIFIED Status: Chronic (6) Pulmonary hypertension Code(s): I27.20 - PULMONARY HYPERTENSION, UNSPECIFIED Status: Chronic - Plan on HD per renal -: Hg stable -: await gen surgery input -: cont po antihypertensives * .
[2017-10-27] MEDS: Folic Acid/Vit B Comp W-C PO SCH (10:27)
[2017-10-27] MEDS: Losartan 25 MG TAB PO SCH (10:28)
[2017-10-27] MEDS: cloNIDine 0.1 MG TAB PO SCH (10:30)
[2017-10-27] MEDS: Clopidogrel Bisulfate 75 MG TAB PO SCH (10:31)
[2017-10-27] MEDS: Ferrous Sulfate 325 MG TAB PO SCH (10:31)
[2017-10-27] MEDS: Sevelamer Carbonate 800 MG TAB PO SCH ×2 (11:31)
[2017-10-27 16:15] VITALS: BP 130/76; TEMP 98.7
--- NOTE | 2017-10-27 16:46 | DIS ---
DATE OF ADMISSION: 10/23/2017 DATE OF DISCHARGE: 10/27/2017 PRIMARY CARE PROVIDER: Abhay Roman M.D. DISCHARGE DISPOSITION: Home. FINAL DIAGNOSES: Rectal hematoma, end-stage renal disease, hypertension, recent rectal surgery, elev ated troponins, anemia of chronic disease. DISCHARGE MEDICATIONS: Her home medicines plus MiraLax 17 grams in water daily, Lipitor 40 mg a day, Plavix 75 mg a day, ferrous sulfate 325 mg a day, Nephro-Tanika 1 a day, losartan 100 mg a day, Proton ix 40 mg a day, meclizine 25 mg q.8 hours p.r.n., sevelamer (Renvela) 2400 mg p.o. t.i.d., Ventolin inhaler 2 puffs q.4 hours p.r.n., clonidine 0.2 mg b.i.d. ALLERGIES: IODINE, PENICILLIN. CODE STATUS: FULL. HOSPITAL COURSE: The patient presented to the [facility], was referred to the [facility] ospitalist [facility] with abdominal pain. She has had a recent hemorrhoidectomy, continued to have yessy e bleeding. During hemodialysis, she developed chest pain, abdominal pain. Here, her hemoglobin was 12.5, white count 5.3, platelet count 261,000, creatinine 4.48, BUN 15, troponin 0.164. Sodium and potassium normal. Lipase 26. Liver function test unremarkable. Her three troponins were statistica lly the same 0.165, 0.161, 0.164. She was seen in consultation by Dr. Jordi Zhang, who considered there was no acute surgical intervention required. She was seen by Dr. Josh Reyna, Nephrology o continued her routine hemodialysis. Patient had an abdominal pelvis CT, which revealed postoperati ve changes, prominent perirectal edematous changes, fat stranding, questionable mass in the rectosigm oid portion of the colon, suspected to be a hematoma. This was done on the and follow up was do ne on the . The situation was reviewed between myself and Dr. Zhang. The patient feels well. Vital signs are stable. Cardiorespiratory exam is stable. She is having minimal amount of blood per rectum. Dr. Zhang was comfortable with her going home on MiraLax 17 grams a day in water, her usua l medications, to follow up with him in 1 week. The patient was advised if she had any profuse bleed ing, if she had any severe rectal pain, if she had fever, chills, to return to the ER. Follow up is planned with Dr. Zhang in 1 week. No procedures were done during this hospital stay. CODE STATUS: FULL. DIET: She is on a renal diet.
--- NOTE | 2017-10-27 18:18 | PRG ---
DATE OF SERVICE: 10/27/2017 SUBJECTIVE: Dai Sullivan is doing well today. She denies any abdominal pain. She is passing some c lot per rectum, but is minimal. PHYSICAL EXAMINATION: VITAL SIGNS: Temperature 98.7 degrees, heart rate 70, blood pressure 130/76. ABDOMEN: Soft and nontender. LABORATORY DATA: Her white count is 4, hemoglobin 11.3. CAT scan yesterday revealed stable intermus cular hematoma. There was suggestion on the CAT scan a disruption of staple line, which I am sure is true. ASSESSMENT AND PLAN: The patient is doing well. I do not think she needs to be hospitalized any olga jessica. Hemoglobin has remained stable. She does not require transfusion. She has been passing a smal l amount of blood occasionally, which I would expect would continue for some time. I would recommend discharge home, MiraLax daily. Follow up in my office in 1-2 weeks. Warm to hot baths as needed fo r any discomfort. Avoid any instrumentation such as enemas.
== END 2017-10-27 17:03 | disposition home or self-care (01) | DRG 919 ==
LOC: ERS 09:12 → 2NO 11:34
PROVIDERS: ADMIT Internal Medicine; ATTEND Internal Medicine
PROC: 5A1D70Z Performance of Urinary Filtration, Intermittent, Less than 6 Hours Per Day (ICD-10-PCS; principal; 2017-10-27)
DX: K91.870 Postprocedural hematoma of a digestive system organ or structure following a digestive system procedure (principal); N18.6 End stage renal disease; I13.2 Hypertensive heart and chronic kidney disease with heart failure and with stage 5 chronic kidney disease, or end stage renal disease; I27.20 Pulmonary hypertension, unspecified; I50.32 Chronic diastolic (congestive) heart failure; Y83.8 Other surgical procedures as the cause of abnormal reaction of the patient, or of later complication, without mention of misadventure at the time of the procedure; D64.9 Anemia, unspecified; B19.20 Unspecified viral hepatitis C without hepatic coma; E78.5 Hyperlipidemia, unspecified; I25.10 Atherosclerotic heart disease of native coronary artery without angina pectoris; F17.210 Nicotine dependence, cigarettes, uncomplicated; I73.9 Peripheral vascular disease, unspecified
CPT/HCPCS: 36415; 74176; 74177; 80048; 80053; 80170; 80202; 82553; 83690; 83735; 84484; 85025; 86850; 86900; 86901; 90935; 93005; 96374; 96375; A4216; G0257; J1580; J2270; J2405; J3370; J7050

== ENCOUNTER 2017-11-20 09:57 | Day surgery (SDC) | payer MEDICARE, OTHER ==
[2017-11-20] MEDS ORDERED: Sodium Chloride 0.9% 30 ML ONE (10:12)
[2017-11-20 17:15] VITALS: BP 152/70; TEMP 98.8
== END 2017-11-20 17:23 | disposition home or self-care (01) ==
LOC: ONC/OP 09:57
PROVIDERS: ATTEND Internal Medicine Nephrology
PROC: 30233N1 Transfusion of Nonautologous Red Blood Cells into Peripheral Vein, Percutaneous Approach (ICD-10-PCS; principal; 2017-11-20)
DX: I12.0 Hypertensive chronic kidney disease with stage 5 chronic kidney disease or end stage renal disease (principal); N18.6 End stage renal disease; D63.1 Anemia in chronic kidney disease; Z88.0 Allergy status to penicillin; Z91.041 Radiographic dye allergy status; Z79.02 Long term (current) use of antithrombotics/antiplatelets; Z79.899 Other long term (current) drug therapy
CPT/HCPCS: 36430; 86850; 86900; 86901; A4216; P9016

== ENCOUNTER 2017-12-03 09:09 | Outpatient (CLI) | payer MEDICARE, OTHER | END 2017-12-03 09:10 | disposition home or self-care (01) | LOC: BICULT 09:09 | PROVIDERS: ATTEND Internal Medicine Gastroenterology | DX: K74.60 Unspecified cirrhosis of liver (principal); A04.8 Other specified bacterial intestinal infections; K64.9 Unspecified hemorrhoids; D50.9 Iron deficiency anemia, unspecified; Z90.49 Acquired absence of other specified parts of digestive tract | CPT/HCPCS: 76705 ==

== ENCOUNTER 2017-12-23 09:15 | Day surgery (SDC) | payer MEDICARE, OTHER ==
[2017-12-22 13:14] VITALS: BMI 25.2
--- NOTE | 2017-12-23 12:23 | OP ---
DATE OF PROCEDURE: 12/23/2017 SURGEON: Jose M Knutson M.D. PREOPERATIVE DIAGNOSES: 1. Recurrent anemia. This has been an issue since starting Plavix with heart stent placement. 2. She has had a hemorrhoidectomy recently. 3. In the past has had ablation of arteriovenous malformations in the stomach. 4. Previous colonoscopies and small bowel capsule endoscopy was normal except for arteriovenous malf ormations. 5. The patient recently had to go back and get a unit of blood transfusion. POSTOPERATIVE DIAGNOSES: 1. Arteriovenous malformation bleeding in the stomach cauterized with argon plasma coagulation. Oth erwise, no arteriovenous malformations noted. ANESTHESIA: TIVA. RECOMMENDATIONS: 1. Continue to monitor H&H with dialysis, transfuse if needed. 2. Iron as needed. 3. At this time as the patient had a significant difficulty maintaining her saturations would not em bark on further endoscopy unless there is overt GI bleeding. COMPLICATIONS: Hypoxia necessitating bag mask ventilation. Patient also has a history of previous c ardiac arrest with fistula placement. She is at very high risk for further procedures requiring any sedation and this should not be embarked upon electively, only in life threatening situations. PROCEDURE IN DETAIL: After the patient was informed of the risks, benefits, and possible complicatio ns of endoscopy including perforation, reaction to medication, sedation, aspiration, informed consent was obtained. The patient brought to endoscopy suite where she was sedated in gradual fashion. Onc e she was comfortable a bite block was placed in the incisural orifice. The endoscope was advanced i n the esophagus, stomach, second and third portion. There was good visualization of the mucosa. The re are no masses, lesions or arteriovenous malformations identified in the esophagus or duodenum, but in the stomach, there was an AVM that was actively bleeding. This was cauterized with an argon plas ma coagulation. The patient transiently did have hypoxemia which necessitated removal of the endosco pe and bag mask ventilation by Anesthesia. Once the patient was doing better the procedure was compl eted, the scope was removed. The patient tolerated the procedure well with no complications.
[2017-12-23] MEDS ORDERED: Lidocaine 1% PF 5 ML VIAL ONE (12:40)
[2017-12-23] MEDS ORDERED: PROPOFOL 200 MG/20 ML VIAL ONE (12:40)
== END 2017-12-23 12:30 | disposition home or self-care (01) ==
LOC: SDC 09:15
PROVIDERS: ATTEND Internal Medicine Gastroenterology
PROC: 0W3P8ZZ Control Bleeding in Gastrointestinal Tract, Via Natural or Artificial Opening Endoscopic (ICD-10-PCS; principal; 2017-12-23)
DX: K55.21 Angiodysplasia of colon with hemorrhage (principal); D64.9 Anemia, unspecified; E78.00 Pure hypercholesterolemia, unspecified; J45.909 Unspecified asthma, uncomplicated; K74.60 Unspecified cirrhosis of liver; I25.10 Atherosclerotic heart disease of native coronary artery without angina pectoris; I12.9 Hypertensive chronic kidney disease with stage 1 through stage 4 chronic kidney disease, or unspecified chronic kidney disease; N18.9 Chronic kidney disease, unspecified; F32.9 Major depressive disorder, single episode, unspecified; F17.200 Nicotine dependence, unspecified, uncomplicated; Z88.0 Allergy status to penicillin; Z91.041 Radiographic dye allergy status; Z98.890 Other specified postprocedural states; Z86.73 Personal history of transient ischemic attack (TIA), and cerebral infarction without residual deficits

== ENCOUNTER 2018-01-15 21:19 | Inpatient (IN) | payer MEDICARE, OTHER ==
[2018-01-15] MEDS ORDERED: Pantoprazole 40 MG VIAL ONE (22:07)
[2018-01-15 22:35] LABS: #Basophils 0.1 thou/uL (0.0-0.2); #Eosinphils 0.1 thou/uL (0.0-0.7); #Lymphocytes 0.9 thou/uL (1.20-3.40); #Monocytes 0.4 thou/uL (0.11-0.59); #Neutrophils 3.1 thou/uL (1.40-6.50); %Basophils 1.2 % (0.0-1.0); %Eosinophils 1.3 % (0.0-10.0); %Lymphocytes 20.6 % (21.0-51.0); %Monocytes 7.9 % (0.0-10.0); Hemoglobin 11.5 g/dL (12.0-16.0); Mean Corpuscular Hemoglobin 33.8 pg (27.0-31.0); Mean Corpuscular Volume 99.5 fl (81.0-99.0); Mean Platelet Volume 7.1 fL (7.4-10.4); Platelet Count 190 thou/uL (130-400); RBC Distribution Width 15.9 % (11.5-14.5); White Blood Cell (WBC) Count 4.5 thou/uL (4.8-10.8)
[2018-01-15 22:42] LABS: INR-International Normal Ratio 1.6; PTT 28.4 SEC (22.9-36.1)
[2018-01-15 22:56] LABS: ALT (SGPT) 12 U/L (8-55); AST (SGOT) 31 U/L (5-34); Albumin 3.5 g/dL (3.4-4.8); Alkaline Phosphatase 126 U/L (40-150); Anion Gap 19 mmol/L (10-20); BUN (Urea Nitrogen) 24 mg/dL (9.8-20.1); Bilirubin, Total 0.9 mg/dL (0.2-1.2); Calc. Creatinine Clearance 0 mL/min (70-130); Calcium 8.6 mg/dL (7.8-10.44); Carbon Dioxide 23 mmol/L (23-31); Chloride 90 mmol/L (98-107); Estimated GFR-MDRD 8; Globulin 3.4 g/dL (2.4-3.5); Glucose 93 mg/dL (80-115); Potassium 4.2 mmol/L (3.5-5.1); Protein, Total 6.9 g/dL (6.0-8.3); Sodium 128 mmol/L (136-145)
[2018-01-15] MEDS ORDERED: cefTRIAXone\\ROCEPHIN 1 GM VIAL ONE (23:38)
[2018-01-15] MEDS ORDERED: Pantoprazole 80 MG, Admixture Fee 1 EACH in Sodium Chloride 0.9% 100 ML IVP SCH (23:45)
[2018-01-16] MEDS ORDERED: Furosemide 40 MG/4 ML VIAL ONE (01:23)
[2018-01-16 01:53] LABS: #Basophils 0.1 thou/uL (0.0-0.2); #Eosinphils 0.1 thou/uL (0.0-0.7); #Lymphocytes 1.2 thou/uL (1.20-3.40); #Monocytes 0.4 thou/uL (0.11-0.59); %Basophils 1.4 % (0.0-1.0); %Eosinophils 1.6 % (0.0-10.0); %Lymphocytes 25.4 % (21.0-51.0); %Neutrophils 62.6 % (42.0-75.0); Band 5 % (5-11); Eosinophils 3 % (0-10); Hemoglobin 11.9 g/dL (12.0-16.0); Lymphocytes 24 % (21-51); MDiff Complete? YES; Macrocytosis SLIGHT = 6-15 cells (100X) (0-5/hpf); Mean Corpuscular HGB CONC 33.4 g/dL (32.0-36.0); Mean Corpuscular Hemoglobin 33.3 pg (27.0-31.0); Mean Corpuscular Volume 99.8 fl (81.0-99.0); Mean Platelet Volume 7.4 fL (7.4-10.4); Monocytes 4 % (0-10); Neutrophil 63 % (42-75); PLT Morphology Comment Appears Adequate; Platelet Count 171 thou/uL (130-400); RBC Distribution Width 16.2 % (11.5-14.5); Red Blood Cell (RBC) Count 3.58 mill/uL (4.20-5.40); White Blood Cell (WBC) Count 4.8 thou/uL (4.8-10.8)
[2018-01-16] MEDS ORDERED: Ondansetron ODT 4 MG TAB ONE (02:00)
[2018-01-16] MEDS ORDERED: Ondansetron ODT 4 MG TAB SL PRN (02:21)
[2018-01-16] MEDS ORDERED: Ondansetron HCl/PF 4 MG/2 ML Vial IVP PRN (02:21)
[2018-01-16] MEDS ORDERED: diphenhydrAMINE 50 MG/ML VIAL IVP SCH (02:30)
[2018-01-16] MEDS ORDERED: Albuterol Sulfate 2.5 mg/3 ml Neb NEB PRN (02:36)
[2018-01-16] MEDS ORDERED: hydrALAZINE 20 MG/ML VIAL SLOW IVP SCH (03:00)
[2018-01-16] MEDS ORDERED: Nitroglycerin 2% Ointment 1 INCH/1 GM Packet TOP SCH (03:00)
[2018-01-16] MEDS ORDERED: Labetalol HCl 100 MG/20 ML VIAL SLOW IVP SCH (03:00)
[2018-01-16] MEDS ORDERED: Losartan 25 MG TAB PO SCH ×2 (03:00→21:00)
[2018-01-16] MEDS ORDERED: Nitroglycerin 2% Ointment 1 INCH/1 GM Packet ONE (03:02)
[2018-01-16] MEDS ORDERED: PROVENTIL INHALER 6.7 G (200 INHALATIONS) INH PRN (03:52)
[2018-01-16] MEDS ORDERED: HYDROcodone/Acetaminophen 5/325 mg Tablet PO PRN (03:52)
[2018-01-16] MEDS ORDERED: Polyethylene Glycol 3350 17 GM Packet PO PRN (03:52)
[2018-01-16] MEDS: Folic Acid/Vit B Comp W-C PO SCH (08:52)
[2018-01-16] MEDS: Ferrous Sulfate 325 MG TAB PO SCH (08:52)
[2018-01-16] MEDS: Sevelamer Carbonate 800 MG TAB PO SCH ×4 (08:52→20:54)
[2018-01-16] MEDS: Folic Acid 1 MG TAB PO SCH (08:53)
[2018-01-16] MEDS: cloNIDine 0.1 MG TAB PO SCH ×2 (08:53→20:59)
[2018-01-16] MEDS: Pantoprazole 40 MG VIAL IVP SCH ×2 (08:53→23:42)
[2018-01-16 09:12] LABS: Hemoglobin 10.9 g/dL (12.0-16.0); Platelet Count 120 thou/uL (130-400)
--- NOTE | 2018-01-16 09:26 | RAD ---
PORTABLE CHEST: Date: 01/16/18 COMPARISON: 10/12/17. HISTORY: Dyspnea. FINDINGS: Heart size is enlarged. There are atherosclerotic changes of the aorta. Pleural and parenchymal santos es in the lung bases are stable. IMPRESSION: Stable exam. POS: BLANCA
[2018-01-16] MEDS ORDERED: Lidocaine 1% (PF) 30 ML VIAL ONE (10:26)
--- NOTE | 2018-01-16 12:49 | OP ---
DATE OF PROCEDURE: 01/16/2018. PREOPERATIVE DIAGNOSIS: Acute renal failure. POSTOPERATIVE DIAGNOSIS: Acute renal failure. PROCEDURES PERFORMED: Placement of right femoral vein Trialysis catheter. INDICATIONS FOR PROCEDURE: A 62-year-old woman presented with acute renal failure. She requires emergent dialysis. I was asked to place a temporary dialysis access for that purpose. DESCRIPTION OF PROCEDURE: Informed consent obtained from the patient who was placed in supine positi on. Right groin is sterilely prepped and draped in usual fashion. The skin was anesthetized with 1% lidocaine plain. I palpated the right femoral artery and then the right femoral vein was cannulated medial to the artery, returning dark venous blood. A guidewire was passed through the 18-gauge intr oducer needle and advanced into the right femoral vein without resistance. The needle was withdrawn over the guidewire. A stab incision is made adjacent to the guidewire. The dilator was passed over the guidewire dilating subcutaneous tissues. Triple-lumen Trialysis catheter was then advanced over the guidewire and placed in the right femoral vein without resistance. The guidewire was removed. Dark venous blood was freely aspirated from all 3 ports which were indivi dually flushed first with saline and then with heparin. Catheter was secured to right groin using 3- 0 nylon sutures at 2 points. Sterile dressing was applied. The patient tolerated procedure without any apparent complication and remains hemodynamically stable following completion of the procedure. No subcutaneous hematoma is evident.
--- NOTE | 2018-01-16 13:00 | CON ---
DATE OF CONSULTATION: 01/16/2018 REQUESTING PHYSICIAN: Dr. Zoran Rivas. REASON FOR CONSULTATION: GI bleeding. HISTORY OF PRESENT ILLNESS: Dai Sullivan is a 62-year-old woman with end-stage mejia l disease, on hemodialysis Thursday, Thursday, and Thursday. She also has a history of coronary artery disease with stent placement and is on Plavix. She is well known by my GI colleague, Dr. Jose M Knutson. She has a history of chronic anemia, bleeding hemorrhoids, and also bleeding gastric and sm all bowel arteriovenous malformations. She has a history of well compensated cirrhosis and is on a l iver/kidney transplant list at [facility]. She has had multiple recent endoscopic investigations for her iron deficiency anemia. In 10/2017, she had an EGD which showed four gastric arteriovenous malf ormations, which were cauterized. Colonoscopy at that time showed pancolonic diverticulosis and a la rge ulcerated internal/external hemorrhoid. The patient subsequently underwent hemorrhoidectomy in [facility] and had some post-procedure bleeding with that. She had a more recent EGD in 12/2017, just a fe w weeks ago showing a single gastric arteriovenous malformation with active bleeding and this was anna ated with APC. Note, she also had a capsule endoscopy in 10/2016 and this showed active bleeding fro small intestinal arteriovenous malformations. Despite all this, her hemoglobin has remained essent ially stable, baseline hemoglobin 11 over the past few months. She presented to the hospital yesterd ay after reporting multiple bowel movements with passage of bright red blood and some blood clots. S he missed her dialysis yesterday due to this issue. Upon presentation, hemoglobin was 11.5, which is at her baseline. She was moved to the [facility] last night due to hypertension and due to problems with her dialysis graft, they were unable to do her dialysis yesterday, so she has just gotten a new dialy sis catheter placed to the right groin. She has had a single bowel movement this morning and this wa s reported as greenish with no evidence of melena or hematochezia. Hemoglobin is currently stable at 10.9. She says she was having some abdominal pain yesterday in the epigastrium, but this has resolv ed at this time. REVIEW OF SYSTEMS: Full review of systems including constitutional, head, eyes, ears, nose, throat, GI, , cardiovascular, respiratory, musculoskeletal, and neurologic systems is negative except as no valerio in the HPI. PAST MEDICAL HISTORY: Hypertension; asthma; end-stage renal disease on dialysis Thursday, Thursday, a thursday; cholecystectomy; bilateral carotid endarterectomy; coronary artery disease with stent plac ement, on Plavix; hemorrhoidectomy in 10/2017; gastric and small bowel arteriovenous malformations; p ancolonic diverticulosis; H. pylori treated in 2012; cirrhosis, well compensated, on transplant list. ALLERGIES: PENICILLIN and IV DYE. OUTPATIENT MEDICATIONS: Folic acid, atorvastatin, losartan, clonidine, Protonix 40 mg daily, iron 32 5 mg daily, Plavix 75 mg daily. FAMILY HISTORY: Noncontributory. SOCIAL HISTORY: Alcohol use is social. She smokes one-half pack of cigarettes per day. No drug use . PHYSICAL EXAMINATION: VITAL SIGNS: Temperature 99.1, blood pressure currently 124/94, pulse 76, 96% oxygen saturation on 4 liters by nasal cannula. GENERAL: Chronically ill-appearing 62-year-old woman, lying in bed comfortably, in no distress. SKIN: No jaundice, no rashes were palpable. EYES: No scleral icterus. Extraocular movements intact. ENT: Mucous membranes moist, no oral lesions. LYMPH: No submandibular or supraclavicular lymphadenopathy. THYROID: Nontender to palpation. HEART: Regular rate and rhythm. LUNGS: Clear to auscultation bilaterally. ABDOMEN: Nondistended. Bowel sounds are present, soft, some tenderness to palpation in the epigastr ium, but no guarding, rebound tenderness. EXTREMITIES: No peripheral edema. She has a new tunneled dialysis catheter placed into the right gr oin. VESSELS: Radial pulses 2+ bilaterally. NEUROLOGICAL: Cranial nerves II-XII intact bilaterally. No focal deficits. RECTAL: Exam was performed, this demonstrated external hemorrhoidal skin tags. On digital exam, the re is no mass in the rectal vault, but there are some internal hemorrhoids palpated. There is brown stool on withdrawal of the glove. There is a small smear of red blood on the diaper, but no active b leeding at this time. No blood in the rectal vault. No melena. LABORATORY STUDIES: Hemoglobin stable at 10.9, WBC 4.8, platelets 120. INR 1.6. Sodium 128, potass ium 4.2, BUN 24, creatinine 6.19, magnesium 1.8, total bilirubin 0.9, alkaline phosphatase 126, AST 3 1, ALT 12, albumin 3.5. IMAGING STUDIES: Chest x-ray showed cardiomegaly, no acute processes. ASSESSMENT AND PLAN: 1. Rectal bleeding. 2. Hemorrhoids, with recent hemorrhoidectomy in 10/2017. 3. Colonic diverticulosis. 4. Chronic anemia, stable. From the reported history, it sounds like the patient's recent GI bleeding yesterday was from a lower gastrointestinal source. There is bright red blood smear on the diaper at this time, but no blood i n the rectal vault. Stool appears normal at this time. I think it is likely that she would experien ce some hemorrhoidal bleeding. Alternatively, this might have represented diverticular bleed, but th is is doubtful given no drop in hemoglobin. She does have a history of recently bleeding gastric AVM s, but clinically this does not appear to represent any upper gastrointestinal bleed. She should con tinue on the PPI. We will certainly not plan on any endoscopic investigation at this time. Her diet can be advanced as tolerated from a GI perspective. We would trend the H&H tomorrow. Please call b ack if needed.
--- NOTE | 2018-01-16 13:08 | CON ---
DATE OF CONSULTATION: 01/16/2018 The following encompassed 70 minutes time. Of that time, greater than 50% was spent with the patient and/or on the patient's unit in the hospital. REASON FOR CONSULTATION: IMCU care. HISTORY OF PRESENT ILLNESS: This is a 62-year-old female who developed lower gastrointestinal bleedi ng yesterday with diarrhea with blood clots that has subsided today and she feels somewhat better, bu t she is very tired from being up almost all night. She has had similar intestinal problems in the p ast. It looks like she underwent evaluation by Dr. Knutson consisting of an EGD on 12/23/2017, which demonstrated arteriovenous malformation in the stomach. She also had a colonoscopy back in October ch showed diverticulosis and internal and external hemorrhoids. PAST MEDICAL HISTORY: 1. Hyperlipidemia. 2. End-stage renal disease, requiring dialysis. 3. Asthma. 4. Depression. 5. Coronary artery disease. 6. Hypertension. 7. Sickle cell trait. 8. Cholelithiasis. 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 10. Arteriovenous malformation. ALLERGIES: PENICILLIN. SOCIAL HISTORY: Smokes daily, does not consume alcohol, does not use illicit drugs. FAMILY MEDICAL HISTORY: Remarkable for pancreatic cancer. MEDICATIONS: Prior to admission, clonidine, Ventolin, Renvela, MiraLax, Protonix, losartan, Nephro-V ite, folate, iron sulfate, Plavix, atorvastatin. REVIEW OF SYSTEMS: Twelve-point review of system otherwise negative. PHYSICAL EXAMINATION: VITAL SIGNS: Temperature 99.1, pulse 76, blood pressure 124/94, sat 96% on 4 liters, respiratory rat e 16. GENERAL: She is awake and in no distress. HEENT: Remarkable for poor dentition. NECK: No adenopathy. No JVD. LUNGS: Clear without wheezing. CARDIAC: S1, S2 regular without murmur. ABDOMEN: Soft, nontender, nondistended. EXTREMITIES: No clubbing, cyanosis, edema. She has a shunt in the left forearm. She has a central line in the right groin. LABORATORY DATA: White blood cell count 4.8, hemoglobin 10.9, hematocrit 32.3, platelet count 120. INR 1.6. Sodium 128, potassium 4.2, chloride 90, CO2 23, BUN 24, creatinine 6.1, glucose 93. Chest x-ray showed no acute infiltrate. ASSESSMENT: 1. Lower gastrointestinal bleeding. 2. Anemia, which is mild. 3. End-stage renal disease, requiring hemodialysis. 4. History of hypertension. PLAN: 1. We would withhold anticoagulants. 2. Gastrointestinal is seeing the patient. 3. Hemodynamic status seems stable. We will follow distantly.
[2018-01-16] MEDS ORDERED: Lorazepam 2 MG/ML VIAL ONE (13:28)
[2018-01-16] MEDS ORDERED: Propofol 1,000 MG/100 ML VIAL IV ONE (13:46)
[2018-01-16 13:59] LABS: Actual Bicarbonate (HCO3a) 26.5 mEq/L (22-28); Base Excess (BEa) -0.4 mEq/L (-2.0 to +3.0); CO2 Tension 53.4 mmHg (35.0-45.0); O2 Tension (PaO2) 162.6 mmHg (> 80.0); pH, Arterial 7.13 (7.35-7.45)
[2018-01-16 14:01] LABS: Hemoglobin (Hb) 11.8 g/dL (12.0-16.0)
[2018-01-16 14:04] LABS: Calcium, Ionized 1.1 mmol/L (1.12-1.30); Puncture Site RR
[2018-01-16 14:08] LABS: INR-International Normal Ratio 1.7; Prothrombin Time 20.8 SEC (12.0-14.7)
[2018-01-16 14:12] LABS: Hemoglobin 11.2 g/dL (12.0-16.0); Mean Corpuscular Hemoglobin 33.3 pg (27.0-31.0); Mean Platelet Volume 7.7 fL (7.4-10.4); Platelet Count 138 thou/uL (130-400); RBC Distribution Width 16.1 % (11.5-14.5); Red Blood Cell (RBC) Count 3.37 mill/uL (4.20-5.40); White Blood Cell (WBC) Count 7.6 thou/uL (4.8-10.8)
[2018-01-16 14:18] LABS: #Lymphocytes 2.9 thou/uL (1.20-3.40); #Monocytes 0.7 thou/uL (0.11-0.59); %Basophils 0.5 % (0.0-1.0); %Eosinophils 0.1 % (0.0-10.0); %Monocytes 8.7 % (0.0-10.0); %Neutrophils 52.8 % (42.0-75.0); Anisocytosis SLIGHT = 6-15 cells (100X) (0-5/hpf); MDiff Complete? YES; Macrocytosis SLIGHT = 6-15 cells (100X) (0-5/hpf); Ovalocytes SLIGHT = 2-5 cells (100X) (0-1/hpf); PLT Morphology Comment Appears Adequate; Polychromasia SLIGHT = 2-3 cells (100X) (0-2/hpf)
[2018-01-16] MEDS ORDERED: Ventilator Sedation Protocol 1 EACH FS SCH (14:25)
[2018-01-16] MEDS ORDERED: DISCONTINUE PREVIOUS NARCOTIC PAIN MEDICATIONS AND BENZODIAZEPINES FS SCH (14:29)
[2018-01-16] MEDS ORDERED: Propofol BOLUS 1,000 MG/100 ML VIAL IV PRN (14:29)
[2018-01-16] MEDS ORDERED: Fentanyl BOLUS 250 ML IVPB PRN (14:29)
[2018-01-16] MEDS ORDERED: Morphine 4 MG/ML VIAL SLOW IVP PRN (14:29)
[2018-01-16] MEDS ORDERED: Lorazepam 2 MG/ML VIAL SLOW IVP PRN (14:29)
--- NOTE | 2018-01-16 14:37 | CON ---
DATE OF CONSULTATION: 01/16/2018 SERVICE: Renal Medicine. HISTORY OF PRESENT ILLNESS: Ms. Sullivan is a 62-year-old black female with ESRD and admitted for GI b janna. According to the history, the patient presented with abdominal pain containing blood feliciano ts. She was admitted for further observation. She was also noted to be in respiratory distress at t hat time. Initially, we decided to do early dialysis that morning, but her clot was noted to be nonf unctional. For this reason, we have consulted Surgery for placement of a temporary femoral dialysis catheter for emergent dialysis. We will be scheduling for an AV fistulogram this coming Thursday. Cur rently, management is supportive. Please note, this patient has had an upper GI bleed in the past and has undergone an upper GI endosco py with Argon laser treatment. REVIEW OF SYSTEMS: Positive for abdominal pain. Positive for melena. Positive for passing blood cl ots. No hematemesis, no dysuria nor frequency. Appetite decreased, energy level is decreased. No h eadache, no diplopia, no chest pain. Intermittent shortness of breath. No nausea, no vomiting, no j oint pains. MEDICATIONS: [place] 5/325 q.6 hours p.r.n., Ventolin neb treatment q.2 hours p.r.n., Proventil 2 puff s q.4 hours p.r.n., Catapres 0.2 mg b.i.d., ferrous sulfate 325 mg once daily, Folvite 1 mg once maria alejandra y, losartan 100 mg at bedtime, Zofran p.r.n., Protonix 40 mg IV q.12 hours, sevelamer 800 mg t.i.d. w ith meals, vitamin B complex daily, status post ceftriaxone. PAST MEDICAL HISTORY: Includes the followin. Status post upper gastrointestinal bleed. 2. End-stage renal disease, currently on maintenance hemodialysis on Thursday, Thursday, and Thursday. 2. History of heavy alcohol intake. 3. History of chronic hepatitis C? 4. Sickle cell trait, peripheral vascular disease, depression, hypertension, chronic gastrointestina l bleed from AV malformation. PAST SURGICAL HISTORY: 1. Status post upper and lower GI endoscopy. 2. Status post cuffed dialysis catheter placement. 3. Status post section. 4. Status post left carotid endarterectomy. 5. Status post cardiac catheterization. 6. Status post AV fistula placement. SOCIAL HISTORY: The patient is , lives alone, lives in [place]. Smoked for 42 years. Statu s post alcohol use, still occasional intake. Status post multiple blood transfusions. Education: [employer] courses. 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 FAMILY HISTORY: Positive family history of ESRD. ALLERGIES: PENICILLIN. TRAUMA: None. IMMUNIZATIONS: Up to date. HOSPITALIZATIONS: Please see past medical history. PHYSICAL EXAMINATION: VITAL SIGNS: Blood pressure is noted at 124/94, heart rate 76, respiratory 16, temperature 99.1, pul se oximetry 96%. GENERAL: Awake, alert, comfortable, not in distress. SKIN: Adequate turgor. HEENT: Pinkish conjunctivae, anicteric sclerae. NECK: No neck mass, no carotid bruits, no JVD. CHEST: No deformities. LUNGS: Clear breath sounds. HEART: Normal sinus rhythm. No murmur, no gallops, no rubs. ABDOMEN: Globular, soft, nontender. No masses. EXTREMITIES: No edema, no deformities. X-RAY FINDINGS: Chest x-ray of 01/16/2018, no congestive heart failure. LABORATORYDATA: Of 01/16/2018, hemoglobin 10.9, hematocrit 32.3. On 01/15/2018, sodium 128, potassi um 4.2, chloride 90, carbon dioxide 23, BUN 24, creatinine 6.19, glucose 93, calcium 8.6. ASSESSMENT AND PLAN: 1. Borderline anemia. Start Epogen 10,000 units subcu every week. 2. Lower gastrointestinal bleed - continue to observe daily CBC. Consider reconsulting GI. 3. End-stage renal disease, stable. The patient missed her hemodialysis yesterday. Due to the nonf unctioning AV fistula, we have consulted Surgery for placement of a femoral dialysis catheter. After the said placement of catheter, consider dialyzing this patient. Due to the recent gastrointestinal bleed, no heparin will be used. Recheck base met and CBC in a.m.
--- NOTE | 2018-01-16 14:46 | RAD ---
PORTABLE CHEST: Date: 01/16/18 HISTORY: Intubation, Code Blue. COMPARISON: Earlier exam same date. FINDINGS: Since the prior exam, endotracheal and NG tubes have been placed, which appear in satisfactory positi on. Heart size is enlarged. Pulmonary vessels and interstitial markings are increased as compared to the prior exam, suggesting edema change. IMPRESSION: 1. Cardiomegaly with some mild pulmonary edema change. 2. Endotracheal and NG tubes in satisfactory position. POS: MARIO
[2018-01-16 14:53] LABS: Troponin I 0.165 ng/mL (< 0.028)
[2018-01-16] MEDS: fentaNYL Citrate/PF 2,000 MCG in Sodium Chloride 0.9% 60 ML IV SCH (15:23)
[2018-01-16 15:37] LABS: CO2 Tension 39.1 mmHg (35.0-45.0); O2 Tension (PaO2) 73.3 mmHg (> 80.0); pH, Arterial 7.43 (7.35-7.45)
[2018-01-16 15:38] LABS: Actual Bicarbonate (HCO3a) 25.3 mEq/L (22-28); Hemoglobin (Hb) 10.4 g/dL (12.0-16.0)
[2018-01-16 15:41] LABS: Puncture Site RR
[2018-01-16 15:43] LABS: ALV-art Gradient 234.325 (0-20)
[2018-01-16] MEDS ORDERED: Vecuronium 10 MG VIAL IVP PRN (15:44)
[2018-01-16] MEDS: Epoetin (ESRD) 20,000 UNITS/ML SC SCH (15:45)
[2018-01-16] MEDS ORDERED: Norepinephrine 8 MG/0.9% NS 250 ML IVPB SCH (15:45)
[2018-01-16] MEDS: Sodium Chloride 0.45% 1,000 ML IV SCH (15:51)
--- NOTE | 2018-01-16 17:10 | PRG ---
DATE OF SERVICE: 01/16/2018 CATERINA KHAN NOTE Around 1:12 p.m., caterina khan was called on this patient, it was in the dialysis unit. I was right ann n the martini and walked in and the patient had a pulse, but was somewhat apneic, had just a slight resp iratory effort. We quickly located Ambu bag and began bag mask ventilation. She was placed on a car diac monitor. A pulse could not be detected and CPR was initiated while we were waiting for the card iac monitor to start. After about 30 seconds of CPR, we held compressions and she was noted to be in V-fib. She was shocked with biphasic paddles and converted to a sinus rhythm. CPR was continued un til sinus rhythm was confirmed. Initially, it looked like she was waking up and she was trying to ve rbalize. She was writhing about the bed. She kept saying that she could not breathe. I sat her up a little bit. Her O2 sat continue to decrease. I decided to intubate her. I placed a MAC blade in her mouth and saw that a partial plate was directly over her supraglottic area. We located some Mari ll forceps and extracted this. During the extraction her front two teeth got bit back by nursing sta ff that was attending to the case with me. The patient was then intubated with a 7.5 endotracheal tu be on first attempt and tidal CO2 was confirmed. X-ray confirmed proper placement. There were no ac wen infiltrates. The patient maintained good blood pressure throughout. She was brought to the ICU and placed on mechanical ventilation. An ABG will be rechecked. [facility]. We will go ahead and run cardiac enzymes. Prognosis is guarded. I cannot find family members' phone number to speak to about the incident.
[2018-01-16 20:00] LABS: #Lymphocytes 1.2 thou/uL (1.20-3.40); #Monocytes 0.6 thou/uL (0.11-0.59); #Neutrophils 5.2 thou/uL (1.40-6.50); %Basophils 0.3 % (0.0-1.0); %Eosinophils 0.4 % (0.0-10.0); %Lymphocytes 17.3 % (21.0-51.0); %Monocytes 8.3 % (0.0-10.0); %Neutrophils 73.7 % (42.0-75.0); Mean Corpuscular HGB CONC 33.8 g/dL (32.0-36.0); Mean Corpuscular Hemoglobin 33.6 pg (27.0-31.0); Mean Corpuscular Volume 99.3 fl (81.0-99.0); Mean Platelet Volume 7.6 fL (7.4-10.4); Platelet Count 157 thou/uL (130-400); RBC Distribution Width 16.1 % (11.5-14.5); Red Blood Cell (RBC) Count 3.27 mill/uL (4.20-5.40); White Blood Cell (WBC) Count 7.1 thou/uL (4.8-10.8)
[2018-01-16] MEDS ORDERED: AMIODARONE HCL IVPB SCH (20:15)
[2018-01-16] MEDS ORDERED: WATER IVPB SCH (20:15)
[2018-01-16] MEDS ORDERED: ADMIXTURE FEE IVPB SCH (20:15)
[2018-01-16] MEDS ORDERED: DEXTROSE IVPB SCH (20:15)
[2018-01-16 20:24] LABS: Anion Gap 20 mmol/L (10-20); BUN (Urea Nitrogen) 10 mg/dL (9.8-20.1); Calc. Creatinine Clearance 18 mL/min (70-130); Calcium 8.2 mg/dL (7.8-10.44); Carbon Dioxide 23 mmol/L (23-31); Chloride 99 mmol/L (98-107); Estimated GFR-MDRD 19; Glucose 75 mg/dL (80-115); Magnesium 1.7 mg/dL (1.6-2.6); Potassium 3.5 mmol/L (3.5-5.1); Sodium 138 mmol/L (136-145)
[2018-01-16] MEDS: Amiodarone HCl 450 MG, Admixture Fee 1 EACH in Dextrose 5% in Water 250 ML IVPB SCH (20:24)
[2018-01-16] MEDS ORDERED: Magnesium 2 GM/NS 0.9% 100 ML 2 GM in Premix Bag 1 BAG IVPB SCH (20:30)
[2018-01-16] MEDS ORDERED: Dextrose 50% Abboject 50 ML SYRINGE SLOW IVP PRN ×2 (20:34→20:35)
[2018-01-16] MEDS ORDERED: Dextrose 5% in Water 1,000 ML IV PRN (20:35)
[2018-01-16] MEDS ORDERED: EPINEPHrine 1 MG/10 ML Abboject SYRINGE ONE (20:40)
[2018-01-16] MEDS ORDERED: Potassium Phosphate 9 MMOL in Sodium Chloride 0.9% 100 ML IVPB SCH (20:45)
[2018-01-16] MEDS ORDERED: Aspirin 300 MG Suppository PR SCH (21:00)
[2018-01-16 21:25] LABS: Hemoglobin 9.9 g/dL (12.0-16.0)
[2018-01-16] MEDS ORDERED: Heparin 10,000 UNITS/ 10 ML VIAL SLOW IVP SCH (21:30)
[2018-01-16] MEDS ORDERED: Heparin 25,000 units/D5W 500 ML IV SCH (21:30)
[2018-01-16 21:35] LABS: INR-International Normal Ratio 1.9; PTT 38.4 SEC (22.9-36.1); Prothrombin Time 21.9 SEC (12.0-14.7)
[2018-01-16] MEDS ORDERED: diphenhydrAMINE 50 MG CAP PER TUBE SCH (22:15)
[2018-01-16] MEDS ORDERED: Famotidine 20 MG TAB PER TUBE SCH (22:15)
[2018-01-16] MEDS ORDERED: predniSONE 20 MG TAB PER TUBE SCH (22:15)
--- NOTE | 2018-01-16 23:17 | RAD ---
FRONTAL RADIOGRAPH CHEST SUPINE 01/16/18 at 10:54 p.m. COMPARISON: 01/16/18 at 1:40 p.m. HISTORY: Central line placement. FINDINGS: Supine imaging is provided, limiting assessment for pneumothorax and pleural fluid. Endotracheal tube and nasogastric tube in stable proper position. Right sided vascular catheter in place, distal tip o verlying the region of the cavoatrial junction. The cardiac silhouette is prominent. There is pulmona ry vascular congestion and perihilar interstitial opacity suggesting interstitial pulmonary edema, st able. IMPRESSION: Lines and tubes as detailed above. POS: [facility]
--- NOTE | 2018-01-17 01:52 | CON ---
DATE OF CONSULTATION: 01/16/2018 HISTORY: Dai Sullivan is a 62-year-old black female with end-stage renal disease and cirrhosis, currently on a liver and kidney transplant list in [place]. She also has a history apparently of cardiac catheterization and stent placement elsewhere in 2016. In talking to her children, they know she had a stent placed, but they are not certain exactly where this was placed, but several doctors in review of their notes state that this was a cardiac stent. She has had problems with her recurrent GI bleed. In 10/2017, colonoscopy revealed internal and external hemorrhoids as well as diverticulosis. EGD in revealed a large stomach AV malformation that was cauterized. She also has undergone capsule endoscopy with findings of small intestine AV malformation. She now is admitted with recurrent lower gastrointestinal bleeding. She was at dialysis today and apparently had problems with breathing. She was found to be in ventricular fibrillation, was defibrillated and decision was made to intubate and a partial plate was seen to be over the supraglottic area. This was removed and she was intubated. She was transferred to the unit and since then she has had episodes of Torsades de pointes. She was defibrillated from that placed on amiodarone and since then she has had 2 other such episodes. However, she only received a loading dose of amiodarone 75 mg. The patient is intubated and cannot provide any history. PAST MEDICAL HISTORY: 1. End-stage renal disease on dialysis, history of gastrointestinal bleeding, history of heavy EtOH intake. 2. Sickle cell trait. 3. Peripheral vascular disease. 4. Hypertension. 5. Depression. 6. Cirrhosis. OPERATIONS: section, left carotid endarterectomy, reportedly cardiac stent placement, AV fistula placement, which currently is thrombosed and a right femoral dialysis catheter has been placed. SOCIAL HISTORY: She smokes a one-half pack per day. FAMILY HISTORY: Unknown. ALLERGIES: PENICILLIN AND IODINE. In discussion with the family, they are not certain exactly what type of reaction she had with IODINE. MEDICATIONS: At home include atorvastatin 40 at bedtime, clonidine 0.2 b.i.d., Plavix 75 daily, ferrous sulfate 325, folic acid 0.4, losartan 100 at bedtime, Protonix 40 q.a.m., Renvela 1 tablet t.i.d., MiraLax 17 grams as directed p.r.n. , Ventolin inhaler. REVIEW OF SYSTEMS: Unobtainable. PHYSICAL EXAMINATION: VITAL SIGNS: 110/70, pulse 59. HEENT: PERRL. CHEST: Reveals occasional late expiratory wheeze. CARDIOVASCULAR: S1, S2 normal, without any S3, S4, or murmurs. ABDOMEN: Normal bowel sounds, without tenderness, organomegaly. EXTREMITIES: Revealed no edema. NEUROLOGIC: Patient is sedated. LABORATORY AND DIAGNOSTIC DATA: EKG reveals normal sinus rhythm and most recent EKG shows inverted T-wave in V3 and V4, which is new from her previous EKGs. Sodium 138, potassium 3.5, chloride 99, carbon dioxide 23, BUN 10, creatinine 3.09. Lactic acid 4.0. Troponin I 0.165. BNP 05257.1 hemoglobin 9.9, hematocrit 28.9. IMPRESSION: 1. Torsades de pointes. 2. History of coronary artery stent in 2016. 3. End-stage renal disease on dialysis. 4. Cirrhosis, on liver and kidney transplant list. 5. Hypertension. 6. Hypercholesterolemia. 7. Smoker. 8. Peripheral vascular disease, status post left carotid endarterectomy. 9. Recurrent gastrointestinal bleeds with arteriovenous malformations and hemorrhoids. 10. Sickle cell trait. 11. Iodine allergy, ?reaction. PLAN: Patient will be given additional 75 mg of amiodarone. Also has a diagnosis of dye allergy. With a history of dye allergy, she will need to be premedicated prior to catheterization. This should be performed to rule out ischemia with her recurrent torsades. This was discussed with multiple children who are present. Risks were discussed including , myocardial infarction, dye reaction, vascular injury, CVA, transfusion, limb loss, vascular injury, etc. Risk of stent placement, subsequent , myocardial infarction, emergent CABG, restenosis, stent thrombosis, vessel perforation, etc. With her recurrent GI bleed, I will place a bare-metal stent. Echocardiogram will also be performed. She would be premedicated with prednisone, Benadryl, and Pepcid. This was discussed with her family that her prognosis is poor. NISSA
[2018-01-17] MEDS: Amiodarone HCl 450 MG, Admixture Fee 1 EACH in Dextrose 5% in Water 250 ML IVPB SCH (02:03)
[2018-01-17 02:38] LABS: Anion Gap 19 mmol/L (10-20); BUN (Urea Nitrogen) 12 mg/dL (9.8-20.1); Calc. Creatinine Clearance 16 mL/min (70-130); Calcium 7.8 mg/dL (7.8-10.44); Carbon Dioxide 23 mmol/L (23-31); Chloride 98 mmol/L (98-107); Estimated GFR-MDRD 16; Glucose 97 mg/dL (80-115); Phosphorus 2.5 mg/dL (2.3-4.7); Potassium 3.6 mmol/L (3.5-5.1); Sodium 136 mmol/L (136-145)
[2018-01-17] MEDS: Propofol 1,000 MG/100 ML VIAL IV PRN ×2 (03:11→16:30)
[2018-01-17] MEDS: Sodium Chloride 0.45% 1,000 ML IV SCH ×2 (03:34→16:26)
[2018-01-17] MEDS: predniSONE 20 MG TAB PER TUBE SCH ×3 (03:36→12:28)
[2018-01-17] MEDS: diphenhydrAMINE 50 MG CAP PER TUBE SCH ×3 (03:36→12:28)
[2018-01-17 05:27] LABS: ALT (SGPT) 11 U/L (8-55); AST (SGOT) 25 U/L (5-34); Alkaline Phosphatase 105 U/L (40-150); Anion Gap 19 mmol/L (10-20); BUN (Urea Nitrogen) 13 mg/dL (9.8-20.1); Bilirubin, Total 0.7 mg/dL (0.2-1.2); Calc. Creatinine Clearance 15 mL/min (70-130); Calcium 8.1 mg/dL (7.8-10.44); Carbon Dioxide 22 mmol/L (23-31); Chloride 97 mmol/L (98-107); Estimated GFR-MDRD 15; Globulin 2.9 g/dL (2.4-3.5); Glucose 124 mg/dL (80-115); Potassium 3.6 mmol/L (3.5-5.1); Protein, Total 5.9 g/dL (6.0-8.3); Sodium 134 mmol/L (136-145)
[2018-01-17 05:30] LABS: CKMB 1.1 ng/mL (0-6.6); PTT 169.4 SEC (22.9-36.1); Troponin I 0.282 ng/mL (< 0.028)
[2018-01-17 05:54] LABS: Band 20 % (5-11); Hemoglobin 10.6 g/dL (12.0-16.0); Lymphocytes 2 % (21-51); MDiff Complete? YES; Mean Corpuscular HGB CONC 33.4 g/dL (32.0-36.0); Mean Corpuscular Hemoglobin 33.4 pg (27.0-31.0); Mean Corpuscular Volume 99.8 fl (81.0-99.0); Mean Platelet Volume 8.1 fL (7.4-10.4); Monocytes 1 % (0-10); Neutrophil 77 % (42-75); PLT Morphology Comment Appears Adequate; Platelet Count 166 thou/uL (130-400); RBC Distribution Width 16.5 % (11.5-14.5); Red Blood Cell (RBC) Count 3.17 mill/uL (4.20-5.40); White Blood Cell (WBC) Count 5.4 thou/uL (4.8-10.8)
[2018-01-17 08:10] LABS: CO2 Tension 23.8 mmHg (35.0-45.0); pH, Arterial 7.55 (7.35-7.45)
[2018-01-17 08:13] LABS: Actual Bicarbonate (HCO3a) 20.5 mEq/L (22-28); Base Excess (BEa) -0.8 mEq/L (-2.0 to +3.0)
[2018-01-17 08:14] LABS: Hematocrit-ABG 34.5 % (36.0-47.0); Hemoglobin (Hb) 10.2 g/dL (12.0-16.0); Puncture Site RBA
--- NOTE | 2018-01-17 08:34 | PRG ---
DATE OF SERVICE: 01/17/2018 SUBJECTIVE: Ms. Sullivan had another code event yesterday during dialysis after I initially evaluated her. She received chest compressions and regained a pulse. She was found to be in torsades de point es. She had a troponin elevation. She continued to have some hemodynamic instability overnight. Sh christiano was evaluated by Cardiology and it appears there are tentative plans to take her for cardiac cathet erization possibly today. She was moved to ICU room. She is now endotracheally intubated and sedate d. Per nursing staff, she has had only one bowel movement overnight and this was greenish in color. No evidence of melena or hematochezia. No other evidence of overt bleeding. OBJECTIVE: VITAL SIGNS: Pulse 78, blood pressure 146/89, 100% oxygen saturation on ventilator, temperature 98.1 . GENERAL: Critically ill, sedated and intubated. HEART: Regular rate and rhythm. LUNGS: Bilateral vent sounds. ABDOMEN: Soft, nondistended, nontender to palpation. EXTREMITIES: 1+ bilateral lower extremity edema. LABORATORY STUDIES: Sodium 134, potassium 3.6, BUN 13, creatinine 3.75, total bilirubin 0.7, alkalin e phosphatase 105, AST 25, ALT 11. Troponin up to 0.282, albumin 3.0, APTT 169.4 (on heparin drip). INR 1.9. Hemoglobin 9.9, hematocrit 28.9, WBC 7.1, platelets 157. ASSESSMENT AND PLAN: 1. Rectal bleeding, resolved for now. 2. Hemorrhoids. 3. Chronic anemia, stable at this time. 4. Torsades de pointes. There has been no further evidence of overt gastrointestinal bleeding and h emoglobin has remained stable. Obviously, at this time, her cardiorespiratory issues take priority. Certainly no plan for any endoscopic investigation. GI will follow at a distance, but please call b ack anytime with questions or concerns.
[2018-01-17] MEDS ORDERED: Prevnar 13-Val Conj/PF 0.5 ML SYRINGE IM ONE (09:00)
[2018-01-17] MEDS ORDERED: Famotidine 20 MG TAB PER TUBE SCH (09:00)
[2018-01-17] MEDS: Pantoprazole 40 MG VIAL IVP SCH ×2 (09:26→21:05)
[2018-01-17] MEDS: Folic Acid 1 MG TAB PO SCH (09:30)
[2018-01-17] MEDS: cloNIDine 0.1 MG TAB PO SCH ×2 (09:30→21:04)
[2018-01-17] MEDS: Ferrous Sulfate 325 MG TAB PO SCH (09:30)
[2018-01-17] MEDS: Sevelamer Carbonate 800 MG TAB PO SCH ×3 (09:30→17:05)
[2018-01-17] MEDS: Folic Acid/Vit B Comp W-C PO SCH (09:31)
--- NOTE | 2018-01-17 09:57 | RAD ---
PORTABLE CHEST: Date: 01/17/18 HISTORY: Respiratory distress. COMPARISON: Prior day's study. FINDINGS: Endotracheal tube and NG tubes appear to be in satisfactory position. Right-sided central line is unc hanged. Heart size is enlarged. Increased interstitial and alveolar lung changes are fairly similar t o the previous exam given differences in technique. IMPRESSION: Essentially stable chest. POS: [facility]
[2018-01-17] MEDS ORDERED: Communication Order-Pharmacy FS SCH (11:15)
--- NOTE | 2018-01-17 11:15 | PRG ---
DATE OF SERVICE: 01/17/2018 RENAL MEDICINE SUBJECTIVE: Ms. Sullivan is a 62-year-old black female with ESRD and being followed by [facility] or her maintenance hemodialysis. During dialysis yesterday, she coded. She was noted to be in torsa ada. She was subsequently transferred to the unit, she was again coded. CPR was done. She was star valerio on IV amiodarone. Cardiology is following. A planned cardiac catheterization is being considere d. This morning, the patient is hemodynamically stable. OBJECTIVE: GENERAL: She is noted to be intubated and ventilator support. VITAL SIGNS: Blood pressure is 125/82, heart rate is 59, respiratory rate 18, pulse ox 99%. GENERAL: Sedated and intubated on ventilator support. SKIN: Adequate turgor. HEENT: Pinkish conjunctivae, anicteric sclerae. NECK: No neck mass, no carotid bruits, no JVD. CHEST: No deformities. LUNGS: Clear breath sounds, no wheezing, no crackles. HEART: Normal sinus rhythm. No murmur, no gallops or rubs. ABDOMEN: Globular, soft, nontender, no masses. EXTREMITIES: No edema. MEDICATIONS: Of 01/17/2018 was reviewed. LABORATORY DATA: Of 01/17/2018, white count 5.4, hemoglobin 10.6. Sodium 134, potassium 3.6, chlori de 97, carbon dioxide 22, BUN 13, creatinine 3.75, glucose 124, calcium 8.1. Troponin I 0.282. Albu min 3.0. ASSESSMENT AND PLAN: 1. Status post cardiac arrest - the patient developed ventricular tachycardia/torsades. Cardiology is following, on IV amiodarone. Currently, hemodynamically stable. The plan, is cardiac catheteriza tion once he is more hemodynamically stable. 2. End-stage renal disease, stable. We will continue current Thursday, Thursday, Thursday hemodialysis . Again, fluid removal only as tolerated. 3. Question of gastrointestinal bleed, stable. No evidence of active gastrointestinal bleed. Gastr oenterology consultation has been done. Case discussed with her cousin at length. Overall, prognosi s remains guarded.
[2018-01-17] MEDS ORDERED: Iopamidol 370 76% 50 ML VIAL FS ONE (11:31)
[2018-01-17] MEDS ORDERED: Iopamidol 370 76% 100 ML VIAL ONE (11:31)
--- NOTE | 2018-01-17 12:21 | PRG ---
DATE OF SERVICE: 01/17/2018 35 minutes critical care time. SUBJECTIVE: Ms. Sullivan has been dealing with multiple episodes of ventricular tachycardia/ventricular fibrillation overnight. She has required cardioversion on several occasions. She is now on an amiodarone drip. Dr. Pfeiffer was involved. I spoke with him this morning. He is tentatively planning to take her to the [facility] today. Apparently, her ejection fraction has dropped vastly since her last echo. OBJECTIVE: VITAL SIGNS: Temperature 97.6, pulse 59, blood pressure 125/82. 24-hour intake 2008, output 50 + 2000 by dialysis. NEURO: She will wake up and track with her eyes. She will move all 4 extremities. HEENT: Otherwise unremarkable. NECK: No JVD. LUNGS: Clear anteriorly. CARDIOVASCULAR: S1 and S2, slightly tachycardic. No murmur. ABDOMEN: Soft, nontender. EXTREMITIES: Trace edema. Her chest x-ray shows cardiomegaly, looks to be some pulmonary edema on the right. LABORATORY DATA: White blood cell count 5.4, hemoglobin 10, hematocrit 32, platelet count 166. PTT is 44.9, pH 7.55, pCO2 of 23, pO2 of 153 that was on SIMV rate 18. PEEP 5, pressure support 10, FiO2 50%. Her rate has since been decreased to 11. Sodium 134, potassium 3.6, chloride 97, CO2 of 22, BUN 13, creatinine 3.7, glucose 124. Troponin 0.2. ASSESSMENT: 1. Status post ventricular fibrillation cardiac arrest. Yesterday, I thought the initial problem was that she had aspirated. Her bridge that was located in her supraglottic area. Given the events of last night I am starting to believe this may have been a primary cardiac event and the bridge in her mouth was just a [place] in all this. 2. Going to adjust mechanical ventilation rate. 3. The patient may be going to the [facility]istics laboratory [facility] today. 4. Updated family at the bedside. Prognosis is certainly guarded given the events of last 24 hours. NISSA
--- NOTE | 2018-01-17 12:30 | PDOC.EVN ---
Event Note - Event Note Event Note: code green was called when pt was in dialysis when a code green was called. pt was shocked and was intubated. Pt was in torsades. Pt was transferred to icu. Pt had another code blue and was found to be in torsades at this time she was shocked and was given some mag. Her magnesium earlier was 1.8. She had ekgs done. On comparison she had some t wave inversion at this time i called cardiology. Ekg's were sent to cardiology and pt was started on heparin and was given asa. She initially came in for gi bleed but her hh was stable and her bleed was thought to be due to hemorrhoids. pt does have hx of AV malformations in the past. Spoke with family and her biological daughter who lives in [place]. Pt was also started on amiodarone. She had received dialysis earlier that day. Nephrology also was called and updated.
--- NOTE | 2018-01-17 12:37 | PDOC.PN ---
- Subjective Encounter Start Date: 01/16/18 Encounter Start Time: 13:00 Subjective: pt was in dialysis, code green was called. pt intubated - Objective Resuscitation Status: Resuscitation Status FULL:Full Resuscitation Vital Signs & Weight: Vital Signs (12 hours) Temp Pulse Resp BP Pulse Ox 01/17/18 11:40 60 116/71 01/17/18 09:30 121/64 01/17/18 09:01 59 L 121/64 99 01/17/18 08:00 97.6 F 59 L 18 01/17/18 06:00 18 01/17/18 04:00 98.1 F 18 01/17/18 03:15 70 116/74 01/17/18 02:00 18 Weight Weight 135 lb 2.294 oz Most Recent Monitor Data Heart Rate from ECG 59 NIBP 125/82 NIBP BP-Mean 93 Respiration from ECG 18 SpO2 99 I&O: 01/16/18 01/17/18 01/18/18 06:59 06:59 06:59 Intake Total 2008 Output Total 50 Balance 1958 Result Diagrams: 01/17/18 04:47 01/17/18 04:47 Additional Labs: Accuchecks 01/17/18 01/17/18 07:36 00:13 POC Glucose 102 96 Phys Exam - Physical Examination Neck: no nodes, no JVD, supple, full ROM Respiratory: no wheezing, no rales, no rhonchi, wheezing present, clear to auscultation bilateral Cardiovascular: RRR SR Gastrointestinal: soft, non-tender, no distention, positive bowel sounds Musculoskeletal: no edema, pulses present, edema present Dx/Plan (1) Acute respiratory failure with hypoxia Code(s): J96.01 - ACUTE RESPIRATORY FAILURE WITH HYPOXIA Status: Acute (2) Cardiac arrest Code(s): I46.9 - CARDIAC ARREST, CAUSE UNSPECIFIED Status: Acute (3) Torsades de pointes Code(s): I47.2 - VENTRICULAR TACHYCARDIA Status: Acute (4) ESRD (end stage renal disease) Code(s): N18.6 - END STAGE RENAL DISEASE Status: Acute (5) Anemia due to acute blood loss Code(s): D62 - ACUTE POSTHEMORRHAGIC ANEMIA Status: Acute - Plan Code green in dialysis. Pt was in torsades. CPR was performed and pt was shocked. Pt was then intubated and taken to ICU. pt's bp low was given some fluids due to her coming in for diarrhea. pt was stated on levo. Review of Systems - Review of Systems Other: unable to do - Medications/Allergies Allergies/Adverse Reactions: Allergies Allergy/AdvReac Type Severity Reaction Status Date / Time iodine Allergy Severe Verified 12/22/17 13:14 Penicillins Allergy Severe Verified 12/22/17 13:14 Medications: Current Medications Acetaminophen (Tylenol) 650 mg PO Q4H PRN PRN Reason: Headache/Fever or Pain Albuterol Sulfate (Proventil Hfa) 2 puff INH Q4H PRN PRN Reason: SOB &/or Wheezing Aspirin (Aspirin Chewable) 81 mg PO DAILY [facility] Atorvastatin Calcium (Lipitor) 40 mg PO HS [facility] Clonidine (Catapres) 0.2 mg PO BID [facility] Last Admin: 01/17/18 09:30 Dose: Not Given Clopidogrel Bisulfate (Plavix) 75 mg PO DAILY [facility] Dextrose/Water (Dextrose 50%) 25 gm SLOW IVP PRN PRN PRN Reason: Hypoglycemia Epoetin Johnson (Procrit) 10,000 units SC Q7D@1130 [facility] Last Admin: 01/16/18 15:45 Dose: 10,000 units Ferrous Sulfate (Feosol) 325 mg PO QAM-WM [facility] Last Admin: 01/17/18 09:30 Dose: Not Given Folic Acid (Folvite) 1 mg PO DAILY [facility] Last Admin: 01/17/18 09:30 Dose: Not Given Glucagon (Glucagon) 1 mg IM PRN PRN PRN Reason: Hypoglycemia Heparin Sodium (Porcine) (Heparin 1,000 Units/Ml (10 Ml)) 0 units SLOW IVP WILLCALL [facility] Last Admin: 01/16/18 23:24 Dose: 3,652 unit Sodium Chloride (1/2 Normal Saline) 1,000 mls @ 75 mls/hr IV .[id number] [facility] Last Admin: 01/17/18 16:26 Dose: 1,000 mls Fentanyl Citrate 2,000 mcg/ (Sodium Chloride) 100 mls @ 0 mls/hr IV INF [facility]; Per Protocol PRN Reason: Protocol Stop: 02/15/18 14:29 Last Admin: 01/17/18 16:22 Dose: 100 mls Fentanyl Citrate (Fentanyl Bolus) 250 mls @ 0 mls/hr IVPB PRN PRN; As Directed PRN Reason: Breakthrough pain/agitation Stop: 02/15/18 14:29 Norepinephrine Bitartrate (Levophed) 250 mls @ 0 mls/hr IVPB INF [facility]; Titrate PRN Reason: Protocol Dextrose/Water (D5w) 1,000 mls @ 0 mls/hr IV .Q0M PRN; As Directed PRN Reason: Hypoglycemia Amiodarone HCl 450 mg/Miscellaneous Medication 0.5 each/ Dextrose/Water 259 mls @ 0 mls/hr IVPB INF [facility]; As Directed PRN Reason: Protocol Last Admin: 01/17/18 16:27 Dose: 259 mls Lorazepam (Ativan) 2 mg SLOW IVP Q1H PRN PRN Reason: Breakthrough agitation Stop: 02/15/18 14:29 Last Admin: 01/16/18 14:41 Dose: 2 mg Morphine Sulfate (Morphine) 2 mg SLOW IVP Q1H PRN PRN Reason: breakthrough pain/agitation Stop: 02/15/18 14:29 Discontinue Previous Narcotic Pain Medications And Benzodiazepines 1 each FS .ONE [facility] Stop: 02/15/18 14:29 Pantoprazole Sodium (Protonix) 40 mg IVP Q12HR [facility] Last Admin: 01/17/18 09:26 Dose: 40 mg Polyethylene Glycol (Miralax) 17 gm PO DAILYPRN PRN PRN Reason: Constipation Propofol (Diprivan) 1,000 mg IV INF PRN; Protocol PRN Reason: TO ACHIEVE GOAL RASS Stop: 02/15/18 14:29 Last Admin: 01/17/18 16:30 Dose: 1,000 mg Propofol (Diprivan Bolus) 20 mg IV Q5MIN PRN PRN Reason: BREAKTHROUGH AGITATION Stop: 02/15/18 14:29 Sevelamer Carbonate (Renvela) 800 mg PO TID-[facility] Last Admin: 01/17/18 17:05 Dose: Not Given Sodium Chloride (Flush - Normal Saline) 10 ml IVF Q12HR [facility] Last Admin: 01/16/18 22:12 Dose: 10 ml Sodium Chloride (Flush - Normal Saline) 10 ml IVF PRN PRN PRN Reason: Saline Flush Vecuronium [place] (Norcuron) 10 mg IVP Q30MIN PRN PRN Reason: Agitation Vitamin B Complex/Vit C/Folic Acid (Nephro-Tanika Tablet) 1 tab PO DAILY [facility] Last Admin: 01/17/18 09:31 Dose: Not Given
--- NOTE | 2018-01-17 12:37 | PDOC.PN ---
- Subjective Encounter Start Date: 01/17/18 Encounter Start Time: 09:00 Subjective: pt intubated, had multiple v tach last night -: pt currently in sr - Objective Resuscitation Status: Resuscitation Status FULL:Full Resuscitation Vital Signs & Weight: Vital Signs (12 hours) Temp Pulse Resp BP Pulse Ox 01/17/18 11:40 60 116/71 01/17/18 09:30 121/64 01/17/18 09:01 59 L 121/64 99 01/17/18 08:00 97.6 F 59 L 18 01/17/18 06:00 18 01/17/18 04:00 98.1 F 18 01/17/18 03:15 70 116/74 01/17/18 02:00 18 Weight Weight 135 lb 2.294 oz Most Recent Monitor Data Heart Rate from ECG 59 NIBP 125/82 NIBP BP-Mean 93 Respiration from ECG 18 SpO2 99 I&O: 01/16/18 01/17/18 01/18/18 06:59 06:59 06:59 Intake Total 2008 Output Total 50 Balance 1958 Result Diagrams: 01/17/18 04:47 01/17/18 04:47 Additional Labs: Accuchecks 01/17/18 01/17/18 07:36 00:13 POC Glucose 102 96 Phys Exam - Physical Examination Neck: no nodes, no JVD, supple, full ROM Respiratory: no wheezing, no rales, no rhonchi, wheezing present, clear to auscultation bilateral Cardiovascular: RRR, no significant murmur, no rub, gallop, irregular Gastrointestinal: soft, non-tender, no distention, positive bowel sounds Musculoskeletal: no edema, pulses present, edema present Dx/Plan (1) Acute respiratory failure with hypoxia Code(s): J96.01 - ACUTE RESPIRATORY FAILURE WITH HYPOXIA Status: Acute (2) Torsades de pointes Code(s): I47.2 - VENTRICULAR TACHYCARDIA Status: Acute (3) Cardiac arrest Code(s): I46.9 - CARDIAC ARREST, CAUSE UNSPECIFIED Status: Acute (4) ESRD (end stage renal disease) Code(s): N18.6 - END STAGE RENAL DISEASE Status: Acute (5) Bleeding external hemorrhoids Code(s): K64.4 - RESIDUAL HEMORRHOIDAL SKIN TAGS Status: Acute - Plan * pt s/p cardiac arrest x2 and has been going in an out of v tach and torsades de point * family at bedside updated * pt to go for cardiac cath but has a iodine allergy. on heparin drip/asa/plavix /statin/ hh is stable for now. * no sign of bleeding * on amio drip * Review of Systems - Review of Systems Other: pt intubated - Medications/Allergies Allergies/Adverse Reactions: Allergies Allergy/AdvReac Type Severity Reaction Status Date / Time iodine Allergy Severe Verified 12/22/17 13:14 Penicillins Allergy Severe Verified 12/22/17 13:14 Medications: Current Medications Acetaminophen (Tylenol) 650 mg PO Q4H PRN PRN Reason: Headache/Fever or Pain Albuterol Sulfate (Proventil Hfa) 2 puff INH Q4H PRN PRN Reason: SOB &/or Wheezing Aspirin (Aspirin Chewable) 81 mg PO DAILY [facility] Clonidine (Catapres) 0.2 mg PO BID [facility] Last Admin: 01/17/18 09:30 Dose: Not Given Clopidogrel Bisulfate (Plavix) 75 mg PO DAILY [facility] Dextrose/Water (Dextrose 50%) 25 gm SLOW IVP PRN PRN PRN Reason: Hypoglycemia Epoetin Johnson (Procrit) 10,000 units SC Q7D@1130 [facility] Last Admin: 01/16/18 15:45 Dose: 10,000 units Ferrous Sulfate (Feosol) 325 mg PO QAM-WM [facility] Last Admin: 01/17/18 09:30 Dose: Not Given Folic Acid (Folvite) 1 mg PO DAILY [facility] Last Admin: 01/17/18 09:30 Dose: Not Given Glucagon (Glucagon) 1 mg IM PRN PRN PRN Reason: Hypoglycemia Heparin Sodium (Porcine) (Heparin 1,000 Units/Ml (10 Ml)) 0 units SLOW IVP WILLCALL [facility] Last Admin: 01/16/18 23:24 Dose: 3,652 unit Sodium Chloride (1/2 Normal Saline) 1,000 mls @ 75 mls/hr IV .[id number] [facility] Last Admin: 01/17/18 16:26 Dose: 1,000 mls Fentanyl Citrate 2,000 mcg/ (Sodium Chloride) 100 mls @ 0 mls/hr IV INF [facility]; Per Protocol PRN Reason: Protocol Stop: 02/15/18 14:29 Last Admin: 01/17/18 16:22 Dose: 100 mls Fentanyl Citrate (Fentanyl Bolus) 250 mls @ 0 mls/hr IVPB PRN PRN; As Directed PRN Reason: Breakthrough pain/agitation Stop: 02/15/18 14:29 Norepinephrine Bitartrate (Levophed) 250 mls @ 0 mls/hr IVPB INF [facility]; Titrate PRN Reason: Protocol Dextrose/Water (D5w) 1,000 mls @ 0 mls/hr IV .Q0M PRN; As Directed PRN Reason: Hypoglycemia Amiodarone HCl 450 mg/Miscellaneous Medication 0.5 each/ Dextrose/Water 259 mls @ 0 mls/hr IVPB INF [facility]; As Directed PRN Reason: Protocol Last Admin: 01/17/18 16:27 Dose: 259 mls Lorazepam (Ativan) 2 mg SLOW IVP Q1H PRN PRN Reason: Breakthrough agitation Stop: 02/15/18 14:29 Last Admin: 01/16/18 14:41 Dose: 2 mg Morphine Sulfate (Morphine) 2 mg SLOW IVP Q1H PRN PRN Reason: breakthrough pain/agitation Stop: 02/15/18 14:29 Discontinue Previous Narcotic Pain Medications And Benzodiazepines 1 each FS .ONE [facility] Stop: 02/15/18 14:29 Pantoprazole Sodium (Protonix) 40 mg IVP Q12HR [facility] Last Admin: 01/17/18 09:26 Dose: 40 mg Polyethylene Glycol (Miralax) 17 gm PO DAILYPRN PRN PRN Reason: Constipation Propofol (Diprivan) 1,000 mg IV INF PRN; Protocol PRN Reason: TO ACHIEVE GOAL RASS Stop: 02/15/18 14:29 Last Admin: 01/17/18 16:30 Dose: 1,000 mg Propofol (Diprivan Bolus) 20 mg IV Q5MIN PRN PRN Reason: BREAKTHROUGH AGITATION Stop: 02/15/18 14:29 Sevelamer Carbonate (Renvela) 800 mg PO TID-[facility] Last Admin: 01/17/18 17:05 Dose: Not Given Sodium Chloride (Flush - Normal Saline) 10 ml IVF Q12HR [facility] Last Admin: 01/16/18 22:12 Dose: 10 ml Sodium Chloride (Flush - Normal Saline) 10 ml IVF PRN PRN PRN Reason: Saline Flush Vecuronium [place] (Norcuron) 10 mg IVP Q30MIN PRN PRN Reason: Agitation Vitamin B Complex/Vit C/Folic Acid (Nephro-Tanika Tablet) 1 tab PO DAILY [facility] Last Admin: 01/17/18 09:31 Dose: Not Given
[2018-01-17] MEDS ORDERED: Lidocaine 1% (PF) 30 ML VIAL ONE (14:09)
[2018-01-17] MEDS ORDERED: Bivalirudin 250 MG VIAL ONE (14:29)
[2018-01-17] MEDS ORDERED: Clopidogrel Bisulfate 300 MG TAB ONE (14:41)
[2018-01-17] MEDS ORDERED: Amiodarone HCl 150 MG, Admixture Fee 1 EACH in Dextrose 5% in Water 100 ML IVPB SCH (15:30)
[2018-01-17] MEDS: WATER IVPB SCH ×2 (16:20→16:27)
[2018-01-17] MEDS: DEXTROSE IVPB SCH ×2 (16:20→16:27)
[2018-01-17] MEDS: AMIODARONE HCL IVPB SCH ×2 (16:20→16:27)
[2018-01-17] MEDS: ADMIXTURE FEE IVPB SCH ×2 (16:20→16:27)
[2018-01-17] MEDS: fentaNYL Citrate/PF 2,000 MCG in Sodium Chloride 0.9% 60 ML IV SCH (16:22)
[2018-01-17] MEDS: Atorvastatin Calcium 40 MG TAB PO SCH (21:10)
[2018-01-18] MEDS: Propofol 1,000 MG/100 ML VIAL IV PRN ×2 (05:05→21:06)
[2018-01-18 05:48] LABS: Band 5 % (5-11); Eosinophils 1 % (0-10); Hemoglobin 9.8 g/dL (12.0-16.0); Lymphocytes 14 % (21-51); MDiff Complete? YES; Mean Corpuscular HGB CONC 34.2 g/dL (32.0-36.0); Mean Corpuscular Volume 99.7 fl (81.0-99.0); Mean Platelet Volume 8.4 fL (7.4-10.4); Monocytes 5 % (0-10); Neutrophil 75 % (42-75); PLT Morphology Comment Appears Decreased; Platelet Count 114 thou/uL (130-400); RBC Distribution Width 16.5 % (11.5-14.5); Red Blood Cell (RBC) Count 2.86 mill/uL (4.20-5.40); White Blood Cell (WBC) Count 4.7 thou/uL (4.8-10.8)
[2018-01-18 06:10] LABS: ALT (SGPT) 10 U/L (8-55); AST (SGOT) 18 U/L (5-34); Albumin 2.7 g/dL (3.4-4.8); Alkaline Phosphatase 84 U/L (40-150); Anion Gap 16 mmol/L (10-20); BUN (Urea Nitrogen) 22 mg/dL (9.8-20.1); Bilirubin, Total 0.6 mg/dL (0.2-1.2); Calc. Creatinine Clearance 12 mL/min (70-130); Calcium 7.4 mg/dL (7.8-10.44); Carbon Dioxide 22 mmol/L (23-31); Chloride 94 mmol/L (98-107); Estimated GFR-MDRD 11; Globulin 2.5 g/dL (2.4-3.5); Glucose 109 mg/dL (80-115); Magnesium 2.3 mg/dL (1.6-2.6); Phosphorus 4.8 mg/dL (2.3-4.7); Potassium 4.4 mmol/L (3.5-5.1); Protein, Total 5.2 g/dL (6.0-8.3); Sodium 128 mmol/L (136-145)
[2018-01-18] MEDS: Sodium Chloride 0.45% 1,000 ML IV SCH ×2 (07:15→21:06)
[2018-01-18 07:20] LABS: ALV-art Gradient 107.225 (0-20); Actual Bicarbonate (HCO3a) 19.3 mEq/L (22-28); Base Excess (BEa) -3.5 mEq/L (-2.0 to +3.0); CO2 Tension 26.7 mmHg (35.0-45.0); Hematocrit-ABG 34.4 % (36.0-47.0); Hemoglobin (Hb) 8.3 g/dL (12.0-16.0); O2 Tension (PaO2) 144.6 mmHg (> 80.0); Puncture Site RRA; pH, Arterial 7.48 (7.35-7.45)
--- NOTE | 2018-01-18 09:01 | RAD ---
ONE VIEW CHEST: HISTORY: Ventilator-dependent patient. FINDINGS: AP view chest is obtained on 01/18/18. Comparison is made to previous exam from 01/17/18. AP view chest demonstrates nasogastric and endotracheal tubes to be in place. A right jugular centra l line is seen, distal tip overlying the SVC and right atrial junction. There is a defibrillator pad on the patient. The lungs are well aerated. There is no evidence of right-sided pleural effusion. There is some blunting of the left costophrenic angle compatible with a small left-sided pleural effu raul. IMPRESSION: 1. Small left-sided pleural effusion. 2. Lines and tubes otherwise in good position. POS: [facility]
--- NOTE | 2018-01-18 10:14 | CCL ---
CARDIOLOGY PROCEDURE NOTE: Date: 01/17/18 PROCEDURE: Coronary arteriography, stent placement in the proximal to mid right coronary artery. INDICATION: Known coronary artery disease and torsades. DESCRIPTION OF PROCEDURE: The patient was brought to the cardiac lab rn after receiving premedication with Prednisone, Benadryl, and Pepcid. 1% lidocaine was infiltrated into the left femoral area (dialysis catheter in the right femoral vein). A 4 [place] sheath was placed into the left femoral artery. A 4 [place] left-4 followed by a 4 [place] right-4 was used for coronary arteriography. All catheter exchanges were performed over a wire. The right-4 and the 4 [place] sheath were then exchanged over the wire for a 6 [place] sheath, and then 6 [place] right-4 guide catheter was inserted. Floppy Choice wire was advanced in the distal right coronary artery. Rebel 3.0 x 16 mm stent was placed inside the previous stent. There did appear to be a 60-70% stenosis just proximal to the stent in the KELLY view and the decision was made to place a Rebel 3.0 x 32 mm stent that overlapped the previous stent. Final result was excellent. During the procedure, the patient received aspirin 324 mg and Plavix 300 mg, as well as Angiomax. At the conclusion of the procedure, the sheath was sutured in place and the patient was transferred back to the CCU. RESULTS: CORONARY ARTERIOGRAPHY: 1. The left main was normal. 2. The LAD had a 40% mid stenosis. There was a 70% stenosis in the first diagonal and a 40% stenosis in the second diagonal. 3. The circumflex had a 20% first obtuse marginal stenosis. The circumflex was heavily calcified. 4. The right coronary artery had an 80% in-stent restenosis in the mid right coronary artery. INTERVENTION RESULTS: Initial lesion was 80%; final lesion was 0%. IMPRESSION: 1. Two vessel coronary artery disease (LAD and RCA). 2. Successful bare metal stent placement in the mid right coronary artery. NISSA
[2018-01-18] MEDS: Folic Acid/Vit B Comp W-C PO SCH (10:46)
[2018-01-18] MEDS: Folic Acid 1 MG TAB PO SCH (10:46)
[2018-01-18] MEDS: cloNIDine 0.1 MG TAB PO SCH ×2 (10:46→21:07)
[2018-01-18] MEDS: Amiodarone 200 MG TAB PER TUBE SCH ×3 (10:46→21:07)
[2018-01-18] MEDS: Clopidogrel Bisulfate 75 MG TAB PO SCH (10:46)
[2018-01-18] MEDS: Pantoprazole 40 MG VIAL IVP SCH ×2 (10:46→21:08)
[2018-01-18] MEDS: Sevelamer Carbonate 800 MG TAB PO SCH ×3 (10:46→17:48)
[2018-01-18] MEDS: Ferrous Sulfate 325 MG TAB PO SCH (10:46)
--- NOTE | 2018-01-18 14:53 | PRG ---
DATE OF SERVICE: 01/18/2018 SERVICE: Renal Medicine. SUBJECTIVE: Ms. Sullivan is a 62-year-old black female with ESRD and followed up by the Renal Service for her maintenance hemodialysis. I am currently dialyzing her. I am at the bedside supervising her dialysis. Attempting 2 liter fluid removal only as tolerated by the patient. She was initially adm itted for question of gastrointestinal bleed. During this last 24-48 hours, she developed ventricula r tachycardia/ventricular fibrillation/torsades. She underwent CPR and cardioversion. At the same t ev, she underwent a cardiac catheterization yesterday. A right coronary artery with stenting was do ne on the patient. This morning, the patient is more hemodynamically stable. Cardiology is julio pacheco. OBJECTIVE: VITAL SIGNS: Blood pressure is , heart rate 51, respiratory rate 12. GENERAL EXAM: Sedated, on ventilator support and intubated. HEENT: She has slightly pale conjunctivae, anicteric sclerae. NECK: No neck mass, no carotid bruits, no JVD. CHEST: No deformities. LUNGS: Clear breath sounds, no wheezing, no crackles. HEART: Bradycardic. No murmur, no gallops, no rubs. ABDOMEN: Globular, soft, nontender, no masses. EXTREMITIES: No edema. Medications of 01/18/2018 were reviewed. LABORATORY DATA: Laboratories of 01/18/2018, white count 4.7, hemoglobin 9.8, hematocrit 28.5. Sodi um 128, potassium 4.4, chloride 94, carbon dioxide 22, BUN 22, creatinine 4.71, phosphorus was 4.8, a lbumin 2.7. ASSESSMENT AND PLAN: 1. Status post ventricular tachycardia/ventricular fibrillation - patient is status post cardiorespi ratory arrest, more stable. She underwent a cardiac catheterization with RCA stent placement. [facility] is currently following. 2. End-stage renal disease, stable. We will continue current hemodialysis regimen Thursday, Thursday , Thursday. Again, fluid removal only as tolerated by the patient. Attempting initially 2 liters. We will adjust fluid removal depending on how the blood pressure will go. 3. Anemia. We have resumed back her weekly Epogen. For the moment, agree with current management. Overall, prognosis remains guarded. Case again discussed at length with the family.
--- NOTE | 2018-01-18 15:03 | EKG ---
Test Reason : Blood Pressure : / mmHG Vent. Rate : 056 BPM Atrial Rate : 056 BPM P-R Int : 192 ms QRS Dur : 086 ms QT Int : 652 ms P-R-T Axes : 039 -11 066 degrees QTc Int : 629 ms Sinus bradycardia with Premature supraventricular complexes Prolonged QT Abnormal ECG When compared with ECG of 16-JAN-2018 20:20, (Unconfirmed) Premature supraventricular complexes are now Present Nonspecific T wave abnormality, improved in Lateral leads Confirmed by CHRISTINA ABARCA ([id number]) on 01/18/2018 3:03:21 PM Referred By: GUY Confirmed By:CHRISTINA ABARCA
--- NOTE | 2018-01-18 15:06 | EKG ---
Test Reason : STAT Blood Pressure : / mmHG Vent. Rate : 067 BPM Atrial Rate : 067 BPM P-R Int : 186 ms QRS Dur : 094 ms QT Int : 588 ms P-R-T Axes : 058 007 068 degrees QTc Int : 621 ms Normal sinus rhythm Abnormal ECG When compared with ECG of 16-JAN-2018 01:52, (Unconfirmed) T wave inversion now evident in Anterior leads QT has lengthened Confirmed by CHRISTINA ABARCA ([id number]) on 01/18/2018 3:06:15 PM Referred By: Confirmed By:CHRISTINA ABARCA
--- NOTE | 2018-01-18 15:09 | PRG ---
DATE OF SERVICE: 01/18/2018 SUBJECTIVE: Ms. Sullivan is awake and she follows commands. She is 121/50, heart rate is 51, respirat ory rate is 16. Catheterization report was reviewed. She did have a coronary stent placed yesterday in her right coronary where she had an 80% in-stent stenosis. OBJECTIVE: LUNGS: Clear. HEART: Regular rhythm. ABDOMEN: Soft. IMAGING: Chest radiograph shows no alveolar infiltrates. LABORATORY DATA: White count 4.7, hemoglobin 9.8, platelets 114,000. Sodium 128, potassium 4.4, chloride 94, bicarbonate 22, BUN 22, creatinine 4.71. Blood gas, pH 7.48, CO2 26, pO2 of 144. IMPRESSION: 1. Respiratory failure. Plan Precedex drip. Hopefully, she will be a candidate for weaning and ext ubation tomorrow if she has a good night. 2. Coronary artery disease, status post coronary artery stenting. 3. Status post cardiac arrest, ? triggered by ischemia. 4. Renal failure. PLAN: Continue supportive care. Hopeful weaning in the morning. Critical care time, 30 minutes.
--- NOTE | 2018-01-18 17:52 | PDOC.EVN ---
Event Note - Event Note Event Note: [id number] advance care planning discussion with family members festus explained to family about guarded prognosis. outlined various options regarding treatment as well as code status. Family wants pt to be full code and to receive all active treatments.
--- NOTE | 2018-01-18 17:55 | PDOC.PN ---
- Subjective Encounter Start Date: 01/18/18 Encounter Start Time: 09:00 Subjective: pt intubated. Family at bedside - Objective Resuscitation Status: Resuscitation Status FULL:Full Resuscitation Vital Signs & Weight: Vital Signs (12 hours) Temp Pulse Resp BP Pulse Ox 01/18/18 16:00 97.6 F 11 L 01/18/18 14:47 53 L 116/47 L 01/18/18 14:00 11 L 01/18/18 12:00 97.3 F L 11 L 01/18/18 10:46 120/50 L 01/18/18 10:25 49 L 120/50 L 01/18/18 10:00 11 L 01/18/18 08:00 97.2 F L 49 L 11 L 96 01/18/18 06:50 51 L 124/34 L 01/18/18 06:00 13 Weight Admit Weight 134 lb Weight 135 lb 2.294 oz Most Recent Monitor Data Heart Rate from ECG 55 NIBP 103/53 NIBP BP-Mean 67 Respiration from ECG 15 SpO2 94 I&O: 01/17/18 01/18/18 01/19/18 06:59 06:59 06:59 Intake Total 2008 2934.9 1127.1 Output Total 50 50 0 Balance 1958 2884.9 1127.1 Result Diagrams: 01/18/18 04:55 01/18/18 04:55 Additional Labs: Accuchecks 01/18/18 01/18/18 01/18/18 16:13 11:57 08:36 POC Glucose 89 78 95 01/18/18 01/18/18 01/17/18 04:46 00:06 19:57 POC Glucose 109 108 107 Phys Exam - Physical Examination Neck: no nodes, no JVD, supple, full ROM Respiratory: no wheezing, no rales, no rhonchi, wheezing present, clear to auscultation bilateral Cardiovascular: RRR, no significant murmur, no rub, gallop, irregular Gastrointestinal: soft, non-tender, no distention, positive bowel sounds Musculoskeletal: no edema, pulses present, edema present Neurological: non-focal, normal sensation, moves all 4 limbs Dx/Plan (1) Acute respiratory failure with hypoxia Code(s): J96.01 - ACUTE RESPIRATORY FAILURE WITH HYPOXIA Status: Acute (2) Cardiac arrest Code(s): I46.9 - CARDIAC ARREST, CAUSE UNSPECIFIED Status: Acute (3) Torsades de pointes Code(s): I47.2 - VENTRICULAR TACHYCARDIA Status: Acute (4) ESRD (end stage renal disease) Code(s): N18.6 - END STAGE RENAL DISEASE Status: Acute (5) Anemia due to acute blood loss Code(s): D62 - ACUTE POSTHEMORRHAGIC ANEMIA Status: Acute - Plan * resent to RCA. pt on asa/plavix * family updated * pt following commands. * HH stable no more arrhythmia * Review of Systems - Review of Systems Other: pt intubated - Medications/Allergies Allergies/Adverse Reactions: Allergies Allergy/AdvReac Type Severity Reaction Status Date / Time iodine Allergy Severe Verified 12/22/17 13:14 Penicillins Allergy Severe Verified 12/22/17 13:14 Medications: Current Medications Acetaminophen (Tylenol) 650 mg PO Q4H PRN PRN Reason: Headache/Fever or Pain Albuterol Sulfate (Proventil Hfa) 2 puff INH Q4H PRN PRN Reason: SOB &/or Wheezing Amiodarone HCl (Cordarone) 200 mg PER TUBE TID [facility] Last Admin: 01/18/18 13:34 Dose: 200 mg Aspirin (Aspirin Chewable) 81 mg PO DAILY [facility] Last Admin: 01/18/18 10:46 Dose: Not Given Atorvastatin Calcium (Lipitor) 40 mg PO HS [facility] Last Admin: 01/17/18 21:10 Dose: 40 mg Clonidine (Catapres) 0.2 mg PO BID [facility] Last Admin: 01/18/18 10:46 Dose: Not Given Clopidogrel Bisulfate (Plavix) 75 mg PO DAILY [facility] Last Admin: 01/18/18 10:46 Dose: Not Given Dextrose/Water (Dextrose 50%) 25 gm SLOW IVP PRN PRN PRN Reason: Hypoglycemia Epoetin Johnson (Procrit) 10,000 units SC Q7D@1130 [facility] Last Admin: 01/16/18 15:45 Dose: 10,000 units Ferrous Sulfate (Feosol) 325 mg PO QAM-WM [facility] Last Admin: 01/18/18 10:46 Dose: Not Given Folic Acid (Folvite) 1 mg PO DAILY [facility] Last Admin: 01/18/18 10:46 Dose: Not Given Glucagon (Glucagon) 1 mg IM PRN PRN PRN Reason: Hypoglycemia Heparin Sodium (Porcine) (Heparin 1,000 Units/Ml (10 Ml)) 0 units SLOW IVP WILLCALL [facility] Last Admin: 01/16/18 23:24 Dose: 3,652 unit Sodium Chloride (1/2 Normal Saline) 1,000 mls @ 75 mls/hr IV .[id number] [facility] Last Admin: 01/18/18 07:15 Dose: 1,000 mls Fentanyl Citrate 2,000 mcg/ (Sodium Chloride) 100 mls @ 0 mls/hr IV INF ALONZO; Per Protocol PRN Reason: Protocol Stop: 02/15/18 14:29 Last Admin: 01/17/18 16:22 Dose: 100 mls Fentanyl Citrate (Fentanyl Bolus) 250 mls @ 0 mls/hr IVPB PRN PRN; As Directed PRN Reason: Breakthrough pain/agitation Stop: 02/15/18 14:29 Norepinephrine Bitartrate (Levophed) 250 mls @ 0 mls/hr IVPB INF ALONZO; Titrate PRN Reason: Protocol Dextrose/Water (D5w) 1,000 mls @ 0 mls/hr IV .Q0M PRN; As Directed PRN Reason: Hypoglycemia Dexmedetomidine HCl 200 mcg/ (Sodium Chloride) 50 mls @ 0 mls/hr IVPB INF ALONZO; Per Protocol PRN Reason: Protocol Last Admin: 01/18/18 16:02 Dose: 50 mls Lorazepam (Ativan) 2 mg SLOW IVP Q1H PRN PRN Reason: Breakthrough agitation Stop: 02/15/18 14:29 Last Admin: 01/16/18 14:41 Dose: 2 mg Morphine Sulfate (Morphine) 2 mg SLOW IVP Q1H PRN PRN Reason: breakthrough pain/agitation Stop: 02/15/18 14:29 Discontinue Previous Narcotic Pain Medications And Benzodiazepines 1 each FS .ONE [facility] Stop: 02/15/18 14:29 Pantoprazole Sodium (Protonix) 40 mg IVP Q12HR [facility] Last Admin: 01/18/18 10:46 Dose: Not Given Polyethylene Glycol (Miralax) 17 gm PO DAILYPRN PRN PRN Reason: Constipation Propofol (Diprivan) 1,000 mg IV INF PRN; Protocol PRN Reason: TO ACHIEVE GOAL RASS Stop: 02/15/18 14:29 Last Admin: 01/18/18 05:05 Dose: 1,000 mg Propofol (Diprivan Bolus) 20 mg IV Q5MIN PRN PRN Reason: BREAKTHROUGH AGITATION Stop: 02/15/18 14:29 Sevelamer Carbonate (Renvela) 800 mg PO TID-WM [facility] Last Admin: 01/18/18 17:48 Dose: Not Given Sodium Chloride (Flush - Normal Saline) 10 ml IVF Q12HR [facility] Last Admin: 01/18/18 11:40 Dose: 10 ml Sodium Chloride (Flush - Normal Saline) 10 ml IVF PRN PRN PRN Reason: Saline Flush Vecuronium [place] (Norcuron) 10 mg IVP Q30MIN PRN PRN Reason: Agitation Vitamin B Complex/Vit C/Folic Acid (Nephro-Tanika Tablet) 1 tab PO DAILY [facility] Last Admin: 01/18/18 10:46 Dose: Not Given
[2018-01-18] MEDS: Atorvastatin Calcium 40 MG TAB PO SCH (21:07)
[2018-01-19 04:00] LABS: #Lymphocytes 0.8 thou/uL (1.20-3.40); #Monocytes 0.4 thou/uL (0.11-0.59); #Neutrophils 4.3 thou/uL (1.40-6.50); %Eosinophils 0.3 % (0.0-10.0); %Lymphocytes 15.2 % (21.0-51.0); %Monocytes 7.5 % (0.0-10.0); %Neutrophils 76.9 % (42.0-75.0); Mean Corpuscular HGB CONC 32.5 g/dL (32.0-36.0); Mean Corpuscular Hemoglobin 32.9 pg (27.0-31.0); Mean Platelet Volume 7.9 fL (7.4-10.4); Platelet Count 125 thou/uL (130-400); RBC Distribution Width 16.9 % (11.5-14.5); Red Blood Cell (RBC) Count 3.04 mill/uL (4.20-5.40); White Blood Cell (WBC) Count 5.5 thou/uL (4.8-10.8)
[2018-01-19 04:10] LABS: Anion Gap 13 mmol/L (10-20); BUN (Urea Nitrogen) 14 mg/dL (9.8-20.1); Calc. Creatinine Clearance 18 mL/min (70-130); Calcium 7.7 mg/dL (7.8-10.44); Carbon Dioxide 24 mmol/L (23-31); Chloride 100 mmol/L (98-107); Estimated GFR-MDRD 18; Glucose 88 mg/dL (80-115); Potassium 3.2 mmol/L (3.5-5.1); Sodium 134 mmol/L (136-145)
[2018-01-19 06:59] LABS: ALV-art Gradient 159.525 (0-20); Actual Bicarbonate (HCO3a) 21.1 mEq/L (22-28); CO2 Tension 31.1 mmHg (35.0-45.0); Hemoglobin (Hb) 10.5 g/dL (12.0-16.0); O2 Tension (PaO2) 86.8 mmHg (> 80.0); Puncture Site RRA; pH, Arterial 7.45 (7.35-7.45)
--- NOTE | 2018-01-19 07:23 | OP-2 ---
DATE OF PROCEDURE: 01/17/2018 at 8 p.m. LOCATION: [facility] in [place], [place] RESIDENT PHYSICIAN: Dr. Yo Thomason ASSISTING RESIDENT PHYSICIAN: Dr. Abhay Apodaca ATTENDING PHYSICIAN: Dr. Jitendra Greene PROCEDURE: Right internal jugular central line placement. INDICATION: Venous access. PROCEDURE AWNING INSTALLER: Dr. Yo Thomason PROCEDURE TREE PLANTER: Dr. Abhay Apodaca ATTENDING PHYSICIAN: Dr. Jitendra Greene who was in attendance for the entire procedure. CONSENT: Consent was obtained from the power of prosecuting attorney prior to the procedure. Indication, risks and benefits were explained at length. PROCEDURE SUMMARY: The procedure was performed under sterile precautions. Hands were washed before the beginning the procedure. A timeout was performed. I wore a surgical cap and mask with protectiv e eyewear, full gown and sterile gloves throughout the procedure. The patient was placed in the [place] position. The right chest region was prepped using chlorhexidine scrub and draped in a wesley rile fashion using 3/4 sheet drape and sterile towels. The medial and lateral heads of the sternocle idomastoid were identified as was the carotid pulse, internal jugular vein was identified using ultra sound. Anesthesia was achieved over the vein using 1% lidocaine. Using realtime out of plain [employer] ce, the introducer needle was inserted into the internal jugular vein under direct ultrasound visuali zation. Venous blood was withdrawn. The syringe was removed and guidewire was advanced into the int roducer needle. The guidewire was visualized in the internal jugular vein by ultrasound. Small inci raul was made at the skin surface with a scalpel and the introducer needle was exchanged for a dilato r over the guidewire. After appropriate dilation was obtained, the dilator was exchanged over the wi re for a 16 gauge central venous catheter. The wire was removed and the catheter was sutured in plac e at 15 cm. A sterile shield was placed over the catheter at the insertion site. The patient tolera valerio the procedure well without any hemodynamic compromise. At the time of the procedure completion, all ports were aspirated and flushed properly. Post-procedure chest x-ray showed interval placement of a right internal jugular venous catheter. Estimated blood loss was 35 mL.
[2018-01-19] MEDS ORDERED: Potassium Chloride 20 MEQ TAB PO SCH (08:30)
--- NOTE | 2018-01-19 09:05 | PRG ---
DATE OF SERVICE: 01/19/2018 SUBJECTIVE: Ms. Sullivan is a 62-year-old black female who was initially admitted for ? of a GI bleed. During this hospitalization, she developed V-tach/ventricular fibrillation and went into cardioresp iratory arrest. CPR was done. She also underwent a cardiac catheterization with a coronary stent pl acement. This morning she is arousable. She has undergone dialysis yesterday without any difficulty . No acute events noted last night. PHYSICAL EXAMINATION: VITAL SIGNS: Blood pressure is 123/51, heart rate is 49, respiratory rate 19, pulse ox is 96%. GENERAL: The patient is arousable, intubated on ventilator support. SKIN: Adequate turgor. HEENT: Pinkish conjunctivae, anicteric sclerae. NECK: No neck mass, no carotid bruits, no JVD. CHEST: No deformities. LUNGS: Decreased breath sounds. HEART: Bradycardic. No murmur, no gallops or rubs. ABDOMEN: Globular, soft, nontender, no masses. EXTREMITIES: No edema. MEDICATIONS: 01/19/2018 - Reviewed. LABORATORY: 01/19/2018 - White count 5.5, hemoglobin 10. Sodium 134, potassium 3.2, chloride 100, c arbon dioxide 24, BUN 14, creatinine 3.18, calcium 7.7. ASSESSMENT AND PLAN: 1. Mild hypokalemia - consider IV KCl 20 mEq x1 dose. 2. Anemia, on weekly Epogen. 3. Status post cardiac arrest/ventricular fibrillation - the patient is status post cardiac catheter ization. Coronary stent placement was placed. Ischemic etiology is most likely for undergoing cardi ac arrhythmia. Cardiology is following. 4. End-stage renal disease, stable. Continuing Thursday, Thursday, Thursday dialysis. Again, fluid re moval only as tolerated.
--- NOTE | 2018-01-19 09:51 | RAD ---
PORTABLE SEMIUPRIGHT FRONTAL CHEST RADIOGRAPH: 01/19/2018 HISTORY: Ventilated patient. COMPARISON: 01/18/2018 FINDINGS: Stable endotracheal tube, nasogastric tube, and right-sided vascular catheter. Stable pulmonary vasc ular congestion. Perihilar interstitial prominence is noted. There is consolidation/collapse of the left lower lobe with air bronchogram formation, stable. There is hazy increased density in the righ t lung base, slightly worsened. Small bilateral pleural effusions are noted. Endotracheal tube terminates approximately 3 cm above the paul. IMPRESSION: Bilateral pleural effusions with bibasilar pulmonary parenchymal opacities suggest pulmonary edema. Infection is not excluded. Followup advised. POS: [facility]
[2018-01-19] MEDS: Sevelamer Carbonate 800 MG TAB PO SCH ×3 (10:04→17:15)
[2018-01-19] MEDS: Ferrous Sulfate 325 MG TAB PO SCH (10:04)
[2018-01-19] MEDS: Folic Acid 1 MG TAB PO SCH (10:05)
[2018-01-19] MEDS: Pantoprazole 40 MG VIAL IVP SCH ×2 (10:05→20:55)
[2018-01-19] MEDS: Amiodarone 200 MG TAB PER TUBE SCH ×3 (10:05→20:56)
[2018-01-19] MEDS: Clopidogrel Bisulfate 75 MG TAB PO SCH (10:05)
[2018-01-19] MEDS: cloNIDine 0.1 MG TAB PO SCH ×2 (10:10→20:55)
[2018-01-19] MEDS: Folic Acid/Vit B Comp W-C PO SCH (10:10)
[2018-01-19] MEDS: Sodium Chloride 0.45% 1,000 ML IV SCH (10:23)
--- NOTE | 2018-01-19 12:39 | PDOC.PN ---
- Subjective Encounter Start Date: 01/19/18 Encounter Start Time: 12:43 Patient seen and examined following admission for cardiac arrest, respiratory failure and Torsades de Pointes. Stable. No acute overnight events. - Objective Resuscitation Status: Resuscitation Status FULL:Full Resuscitation MAR Reviewed: Yes Vital Signs & Weight: Vital Signs (12 hours) Temp Pulse Resp BP 01/19/18 12:00 11 L 01/19/18 11:14 49 L 150/70 H 01/19/18 10:10 160/65 H 01/19/18 10:00 11 L 01/19/18 08:00 97.3 F L 11 L 01/19/18 06:24 49 L 123/51 L 01/19/18 05:53 19 01/19/18 04:04 51 L 122/42 L 01/19/18 04:00 98.7 F 11 L 01/19/18 02:00 21 H 01/19/18 01:13 50 L 131/49 L Weight Admit Weight 134 lb Weight 135 lb 2.294 oz Most Recent Monitor Data Heart Rate from ECG 49 NIBP 111/47 NIBP BP-Mean 60 Respiration from ECG 17 SpO2 91 I&O: 01/18/18 01/19/18 01/20/18 06:59 06:59 06:59 Intake Total 2934.9 2279.1 120 Output Total 50 0 Balance 2884.9 2279.1 120 Result Diagrams: 01/19/18 03:40 01/19/18 03:40 Additional Labs: Accuchecks 01/19/18 01/19/18 01/18/18 10:28 02:14 21:21 POC Glucose 56 L* 75 78 01/18/18 01/18/18 16:13 11:57 POC Glucose 89 78 Phys Exam - Physical Examination Constitutional: NAD HEENT: PERRLA, sclera anicteric, TM's clear Neck: supple Respiratory: no wheezing, no rales, no rhonchi, clear to auscultation bilateral Cardiovascular: RRR, no significant murmur, no rub Gastrointestinal: soft, non-tender, no distention, positive bowel sounds Musculoskeletal: no edema, pulses present Spontaneous eye opening and following commands. Skin: no rash, normal turgor Dx/Plan (1) Hypoglycemia Code(s): E16.2 - HYPOGLYCEMIA, UNSPECIFIED Status: Acute (2) Acute respiratory failure with hypoxia Code(s): J96.01 - ACUTE RESPIRATORY FAILURE WITH HYPOXIA Status: Acute (3) Cardiac arrest Code(s): I46.9 - CARDIAC ARREST, CAUSE UNSPECIFIED Status: Acute (4) Torsades de pointes Code(s): I47.2 - VENTRICULAR TACHYCARDIA Status: Acute (5) Anemia of renal disease Code(s): D63.1 - ANEMIA IN CHRONIC KIDNEY DISEASE Status: Chronic (6) COPD (chronic obstructive pulmonary disease) Status: Chronic Qualifiers: COPD type: unspecified COPD Qualified Code(s): J44.9 - Chronic obstructive pulmonary disease, unspecified (7) Chronic diastolic (congestive) heart failure Code(s): I50.32 - CHRONIC DIASTOLIC (CONGESTIVE) HEART FAILURE Status: Chronic (8) Dyslipidemia Code(s): E78.5 - HYPERLIPIDEMIA, UNSPECIFIED Status: Chronic (9) ESRD (end stage renal disease) on dialysis Code(s): N18.6 - END STAGE RENAL DISEASE; Z99.2 - DEPENDENCE ON RENAL DIALYSIS Status: Chronic (10) HTN (hypertension) Code(s): I10 - ESSENTIAL (PRIMARY) HYPERTENSION Status: Chronic Qualifiers: Hypertension type: essential hypertension Qualified Code(s): I10 - Essential (primary) hypertension (11) Thrombocytopenia Code(s): D69.6 - THROMBOCYTOPENIA, UNSPECIFIED Status: Chronic - Plan cont current plan of care, srivastava catheter, respiratory therapy, DVT proph w/ lovenox Stable. Continue current management. SCDs for DVT prophylaxis Correct hyopkalemia and hypomagnesemia. Review of Systems - Medications/Allergies Allergies/Adverse Reactions: Allergies Allergy/AdvReac Type Severity Reaction Status Date / Time iodine Allergy Severe Verified 12/22/17 13:14 Penicillins Allergy Severe Verified 12/22/17 13:14 Medications: Current Medications Acetaminophen (Tylenol) 650 mg PO Q4H PRN PRN Reason: Headache/Fever or Pain Albuterol Sulfate (Proventil Hfa) 2 puff INH Q4H PRN PRN Reason: SOB &/or Wheezing Amiodarone HCl (Cordarone) 200 mg PER TUBE TID [facility] Last Admin: 01/19/18 10:05 Dose: 200 mg Aspirin (Aspirin Chewable) 81 mg PO DAILY [facility] Last Admin: 01/19/18 10:05 Dose: 81 mg Atorvastatin Calcium (Lipitor) 40 mg PO HS [facility] Last Admin: 01/18/18 21:07 Dose: 40 mg Clonidine (Catapres) 0.2 mg PO BID [facility] Last Admin: 01/19/18 10:10 Dose: 0.2 mg Clopidogrel Bisulfate (Plavix) 75 mg PO DAILY [facility] Last Admin: 01/19/18 10:05 Dose: 75 mg Dextrose/Water (Dextrose 50%) 25 gm SLOW IVP PRN PRN PRN Reason: Hypoglycemia Last Admin: 01/19/18 10:29 Dose: 25 gm Epoetin Johnson (Procrit) 10,000 units SC Q7D@1130 [facility] Last Admin: 01/16/18 15:45 Dose: 10,000 units Ferrous Sulfate (Feosol) 325 mg PO QA-[facility] Last Admin: 01/19/18 10:04 Dose: 325 mg Folic Acid (Folvite) 1 mg PO DAILY [facility] Last Admin: 01/19/18 10:05 Dose: 1 mg Glucagon (Glucagon) 1 mg IM PRN PRN PRN Reason: Hypoglycemia Sodium Chloride (1/2 Normal Saline) 1,000 mls @ 75 mls/hr IV .[id number] [facility] Last Admin: 01/19/18 10:23 Dose: 1,000 mls Norepinephrine Bitartrate (Levophed) 250 mls @ 0 mls/hr IVPB INF [facility]; Titrate PRN Reason: Protocol Dextrose/Water (D5w) 1,000 mls @ 0 mls/hr IV .Q0M PRN; As Directed PRN Reason: Hypoglycemia Dexmedetomidine HCl 200 mcg/ (Sodium Chloride) 50 mls @ 0 mls/hr IVPB INF [facility]; Per Protocol PRN Reason: Protocol Last Admin: 01/18/18 16:02 Dose: 50 mls Lorazepam (Ativan) 2 mg SLOW IVP Q1H PRN PRN Reason: Breakthrough agitation Stop: 02/15/18 14:29 Last Admin: 01/16/18 14:41 Dose: 2 mg Morphine Sulfate (Morphine) 2 mg SLOW IVP Q1H PRN PRN Reason: breakthrough pain/agitation Stop: 02/15/18 14:29 Discontinue Previous Narcotic Pain Medications And Benzodiazepines 1 each FS .ONE [facility] Stop: 02/15/18 14:29 Pantoprazole Sodium (Protonix) 40 mg IVP Q12HR [facility] Last Admin: 01/19/18 10:05 Dose: 40 mg Polyethylene Glycol (Miralax) 17 gm PO DAILYPRN PRN PRN Reason: Constipation Potassium Chloride (K-Dur) 20 meq PO QAM-[facility] Sevelamer Carbonate (Renvela) 800 mg PO TID-[facility] Last Admin: 01/19/18 12:34 Dose: Not Given Sodium Chloride (Flush - Normal Saline) 10 ml IVF Q12HR [facility] Last Admin: 01/19/18 10:05 Dose: 10 ml Sodium Chloride (Flush - Normal Saline) 10 ml IVF PRN PRN PRN Reason: Saline Flush Vitamin B Complex/Vit C/Folic Acid (Nephro-Tanika Tablet) 1 tab PO DAILY [facility] Last Admin: 01/19/18 10:10 Dose: 1 tab
[2018-01-19] MEDS ORDERED: D5 1/2 NS 500 ML IV SCH (12:45)
[2018-01-19] MEDS: Dextrose 5 %-0.45 % NaCl 1,000 ML IV SCH (13:10)
--- NOTE | 2018-01-19 15:31 | PRG ---
DATE OF SERVICE: 01/19/2018 SUBJECTIVE: Ms. Sullivan will awaken and follow commands, but when she falls back asleep, her tidal vo lumes are extremely small. PHYSICAL EXAMINATION: VITAL SIGNS: Blood pressure 123/46, heart rate 63, respiratory rates in the teens to low 20s. LUNGS: Clear. HEART: Regular rhythm. ABDOMEN: Soft and nontender. LABORATORY DATA AND IMAGING DATA: White count 5.5, hemoglobin 10, platelets 125,000. Sodium 134, po tassium 3.2, chloride 100, bicarbonate 24, BUN 14, creatinine 3.18. Chest radiograph suggestive of m ild interstitial edema. A pH today is 7.45, pCO2 31, pO2 86. IMPRESSION: 1. Respiratory failure after an arrest. 2. Status post coronary artery stenting. 3. Mild pulmonary edema. 4. End-stage renal disease. We will try to minimize sedation. I do not feel comfortable extubating her with her somnolence at th is point. Critical care time was 30 minutes.
[2018-01-19] MEDS: Atorvastatin Calcium 40 MG TAB PO SCH (20:55)
--- NOTE | 2018-01-19 23:20 | CON ---
DATE OF CONSULTATION: 01/19/2018 REFERRING PHYSICIAN: Max Pfeiffer M.D. REASON FOR CONSULTATION: Ventricular arrest, torsades de pointes, and ischemic cardiomyopathy HISTORY OF PRESENT ILLNESS: Ms. Sullivan is a very unfortunate chronically ill 62 -year-old woman, who usually receives care in [place]. She has a history of end -stage renal disease as well as cirrhosis. She is on dialysis regularly. She also has a history of recurrent gastrointestinal bleed. This is initially drove her to seek attention at [facility]. Their record reviewed, she had a cardiac catheterization and a stent placed to the RCA in 2015 in [place]. She also has a history of GI bleed and EGD in 12/2017 revealed a large gastric AVM that was since cauterized. She also has had internal and external bleeding hemorrhoids. She was initially admitted with a recurrent lower GI bleed. While she was at dialysis on 01/16/2018, she began to have some issue breathing and was found to be in ventricular fibrillation. She was defibrillated and moved to the ICU and subsequently intubated. That evening at approximately 1900 , she began to experience episodes of torsades de pointes. She defibrillated twice more and was placed on amiodarone, received a loading dose at 75 mg prior to a drip initiation. Since that time, the drip has been discontinued and she was transitioned to a p.o. form given via feeding tube on 01/18/2018. On 2017, Dr. Pfeiffer brought her to the [facility] where a 2-vessel coronary artery disease was found. There was a 70% stenosis in the first diagonal as well as 40 % stenosis to the mid LAD and second diagonal. The stent that she had received in the mid RCA was 80% occluded and a new bare metal stent was placed at that area of stent restenosis. Today, she remains intubated and just mildly sedated in the ICU. Her eyes are open spontaneously. She does respond to stimuli. PAST MEDICAL HISTORY: 1. End-stage renal disease on hemodialysis. 2. History of recurrent gastrointestinal bleed with gastric AVM, status post cauterization. 3. History of heavy alcohol consumption. 4. Sickle cell trait. 5. Peripheral vascular disease. 6. Hypertension. 7. Depression. 8. Cirrhosis. 9. Currently on liver and kidney transplant list in [place]. 10. Coronary artery disease with RCA stent in 2016. 11. Left carotid artery stenosis, status post endarterectomy. PAST SURGICAL HISTORY: Thrombosed AV fistula. SOCIAL HISTORY: Positive for half pack per day. Positive for alcohol. FAMILY HISTORY: Unknown. ALLERGIES: IODINE, PENICILLIN per chart review. REVIEW OF SYSTEMS: Unable to obtain given intubated and sedated. HOME MEDICATIONS: Include Renvela 1 tab p.o. t.i.d., Lasix 20 mg daily, Plavix 75 mg daily, Sensipar 30 mg daily, Lipitor 40 mg at bedtime, Protonix 40 mg q.a.m., Ventolin inhaler 2 puffs q.4 hours as needed, and clonidine 0.2 mg p.o. b.i.d. PHYSICAL EXAMINATION: VITAL SIGNS: Blood pressure 123/46, pulse 63, 96.9 degrees Fahrenheit, respirations by ventilator. GENERAL: This is a chronically ill appearing middle-aged woman. HEENT: Pupils are equal, round, and reactive to light and accommodating. She is mildly sedated. Eyes do open spontaneously. NECK: Supple without jugular venous distention. HEART: Rate is regularly regular without murmur, rub or gallop. PMI is nondisplaced. LUNGS: Mostly clear with some late expiratory wheezes. Breathing tube is in place. Current mode is SIMV, FiO2 35%, and PEEP of 5. ABDOMEN: Soft and nontender without palpable masses. Hepatojugular reflex is negative. EXTREMITIES: Warm and dry to touch without clubbing, cyanosis or edema. NEUROLOGIC: Limited given the IV sedation. DATABASE: Currently and the patient is in sinus bradycardia with a first- degree AV block with a QT prolongation. On 01/16/2018, approximately 1740, patient began to experience a torsades de pointes and she had multiple episodes over the next few hours. She was started on amiodarone and had received multiple defibrillations. On 01/17/2018 at 0400, she had an episode of nonsustained ventricular tachycardia. HEMATOLOGY: On 01/19/2018, WBC 5.5, hemoglobin 10.0, hematocrit 30.7, platelet count is 125. Chemistry on 01/19/2018, sodium 134, potassium 3.2, BUN 14, creatinine 3.18. Magnesium on 01/18/2018 was 2.3, and magnesium and 01/16/2018 was 1.7. Potassium on 616 is 3.5. IMPRESSION: 1. Sustained last spontaneous ventricular tachycardia arrest, torsades de pointes, required defibrillation during dialysis in the setting of mild electrolyte imbalance and mild anemia. 2. QT prolongation, currently on amiodarone. 3. Coronary artery disease with prior RCA stent in 2016. Heart catheterization during this hospitalization revealed in-stent restenosis, 80% RCA, requiring restenting. 4. Ischemic cardiomyopathy, EF 20% to 25%, previously 70% by [facility] in 2014. 5. End-stage renal disease on dialysis. 6. Respiratory failure, currently intubated. 7. Recurrent gastrointestinal bleed with minimal anemia. 8. Anemia of chronic disease. 9. Mild hypokalemia. PLAN: 1. Hence primary ventricular fibrillation/torsades pointes arrest and a severely reduced ejection fraction, the patient would likely benefit from receiving ICD implant prior to discharge, despite of the apparetn revascularisation, I think her risk for recurrecn lethal arrhtyhmias is high, especially if we stop amiodarone. At this point, given her QT prolongation, there is questionable benefit over risk from continued amiodarone use. We will likely need stop this in the near future, but we will continue for now hence the apparetn clinincal improvement. There is no family at bedside to discuss findings and plan at time of exam. At this point, we would recommend continue replacement. 2. Magnesium of at least 1.8 and a potassium greater than or equal to 4. Thank you for allowing us to participate in the care of this patient. We will continue to follow with her hospitalization and we will coordinate for possible ICD placement as she progresses through this hospitalization. NISSA
[2018-01-20 05:05] LABS: #Eosinphils 0.1 thou/uL (0.0-0.7); #Lymphocytes 0.6 thou/uL (1.20-3.40); #Monocytes 0.4 thou/uL (0.11-0.59); %Basophils 0.1 % (0.0-1.0); %Eosinophils 1.6 % (0.0-10.0); %Lymphocytes 14.6 % (21.0-51.0); %Monocytes 9.9 % (0.0-10.0); %Neutrophils 73.9 % (42.0-75.0); Hemoglobin 9.2 g/dL (12.0-16.0); Mean Corpuscular Hemoglobin 33.8 pg (27.0-31.0); Mean Corpuscular Volume 99.6 fL (78.0-98.0); Mean Platelet Volume 7.6 fL (7.4-10.4); Platelet Count 118 thou/uL (130-400); RBC Distribution Width 17.2 % (11.5-14.5); Red Blood Cell (RBC) Count 2.71 mill/uL (4.20-5.40); White Blood Cell (WBC) Count 4.1 thou/uL (4.8-10.8)
[2018-01-20 05:24] LABS: Anion Gap 12 mmol/L (10-20); BUN (Urea Nitrogen) 17 mg/dL (9.8-20.1); Calc. Creatinine Clearance 13 mL/min (70-130); Calcium 7.6 mg/dL (7.8-10.44); Carbon Dioxide 24 mmol/L (23-31); Chloride 101 mmol/L (98-107); Estimated GFR-MDRD 12; Glucose 94 mg/dL (80-115); Potassium 3.7 mmol/L (3.5-5.1); Sodium 133 mmol/L (136-145)
[2018-01-20 06:57] LABS: Actual Bicarbonate (HCO3a) 23.1 mEq/L (22-28); Base Excess (BEa) -2.3 mEq/L (-2.0 to +3.0); CO2 Tension 41.8 mmHg (35.0-45.0); Hemoglobin (Hb) 12.3 g/dL (12.0-16.0); O2 Tension (PaO2) 78.2 mmHg (> 80.0); pH, Arterial 7.36 (7.35-7.45)
[2018-01-20 06:59] LABS: Calcium, Ionized 1.1 mmol/L (1.12-1.30); Puncture Site RRA
[2018-01-20] MEDS: Sevelamer Carbonate 800 MG TAB PO SCH ×3 (07:47→17:27)
[2018-01-20] MEDS: Dextrose 5 %-0.45 % NaCl 1,000 ML IV SCH (08:00)
[2018-01-20] MEDS ORDERED: Potassium Chloride 20 MEQ TAB PO SCH (08:00)
--- NOTE | 2018-01-20 09:25 | PRG ---
DATE OF SERVICE: 01/20/2018 SERVICE: Renal Medicine. SUBJECTIVE: Ms. Sullivan is a 62-year-old black female with ESRD. In the last few days, patient has b een hemodynamically unstable. She developed ventricular tachycardia/ventricular fibrillation at that time. CPR was done. She also has undergone an emergent cardiac catheterization with coronary stent placement. This morning, she is more awake. She has been receiving regular dialysis and tolerating said treatment. The plan is for her to be extubated. This will be done after dialysis. PHYSICAL EXAMINATION: VITAL SIGNS: Blood pressure is 129/53, heart rate 59, respiratory rate 16, pulse ox 98%. GENERAL EXAM: Patient is awake, intubated, not in overt distress. SKIN: Adequate turgor. HEENT: Slightly pale conjunctivae. Anicteric sclerae. NECK: No neck mass, no carotid bruits, no JVD. CHEST: No deformities. LUNGS: Clear breath sounds. No wheezing, no crackles. HEART: Normal sinus rhythm. Grade 2/6 systolic murmur, no gallops, no rubs. ABDOMEN: Globular, soft, nontender, no masses. EXTREMITIES: No edema. Medications of 01/20/2018 were reviewed. LABORATORY DATA: Laboratories of 01/20/2018, white count 4.1, hemoglobin 9.2. Sodium 133, potassium 3.7, chloride 101, carbon dioxide 24, BUN 17, creatinine 4.36, glucose 94, calcium 7.6. ASSESSMENT AND PLAN: 1. End-stage renal disease, stable, tolerating current hemodialysis regimen. Our plan is to schedul e her back on her regular dialysis today. Again, we will max out fluid removal as tolerated by the p atient. 2. Status post cardiac arrest - patient had ventricular tachycardia/ventricular fibrillation - the f eeling is this is ischemic in etiology, and the patient has undergone the cardiac catheterization wit h coronary stent placement. 3. Chronic anemia - currently on maintenance Epogen at 10,000 units subcutaneously every week. 4. Congestive heart failure - we will max out fluid removal with hemodialysis today. Agree with tiffanie peter management.
--- NOTE | 2018-01-20 09:31 | RAD ---
SINGLE VIEW OF THE CHEST: Comparison: 01-19-18 History: Ventilated patient with respiratory failure. FINDINGS: Single view of the chest shows an enlarged but stable cardiomediastinal silhouette with atherosclerot ic calcifications in the aorta. The lines and tubes are unchanged in position. There are bilateral ve il like opacities which likely represent small pleural effusions. IMPRESSION: 1. Stable cardiomegaly and bilateral pleural effusions. POS: MARIO
[2018-01-20] MEDS: Ferrous Sulfate 325 MG TAB PO SCH (10:33)
[2018-01-20] MEDS: Folic Acid/Vit B Comp W-C PO SCH (10:34)
[2018-01-20] MEDS: cloNIDine 0.1 MG TAB PO SCH ×2 (10:34→20:17)
[2018-01-20] MEDS: Pantoprazole 40 MG VIAL IVP SCH ×2 (10:34→20:16)
[2018-01-20] MEDS: Folic Acid 1 MG TAB PO SCH (10:34)
--- NOTE | 2018-01-20 11:44 | PDOC.PN ---
- Subjective Encounter Start Date: 01/20/18 Encounter Start Time: 11:38 Patient seen and examined following admission for cardiac arrest, respiratory failure and Torsades de Pointes. Stable. No acute overnight events. - Objective Resuscitation Status: Resuscitation Status FULL:Full Resuscitation MAR Reviewed: Yes Vital Signs & Weight: Vital Signs (12 hours) Temp Pulse Resp BP Pulse Ox 01/20/18 10:34 129/54 L 01/20/18 09:54 70 18 99 01/20/18 08:00 98.1 F 70 18 59 L 01/20/18 06:10 60 129/54 L 01/20/18 04:00 98.8 F 01/20/18 00:00 98.5 F 23 H Weight Admit Weight 134 lb Weight 124 lb 8.979 oz Most Recent Monitor Data Heart Rate from ECG 64 NIBP 162/54 NIBP BP-Mean 73 Respiration from ECG 24 SpO2 100 I&O: 01/19/18 01/20/18 01/21/18 06:59 06:59 06:59 Intake Total 2279.1 1732.6 Output Total 0 0 Balance 2279.1 1732.6 0 Result Diagrams: 01/20/18 04:42 01/20/18 04:42 Additional Labs: Accuchecks 01/20/18 01/20/18 01/20/18 08:16 04:09 00:16 POC Glucose 93 102 102 01/19/18 01/19/18 01/19/18 20:56 17:22 12:42 POC Glucose 92 77 100 Phys Exam - Physical Examination Constitutional: NAD HEENT: moist MMs, sclera anicteric Neck: supple Respiratory: no wheezing, no rales, no rhonchi, clear to auscultation bilateral Cardiovascular: RRR, no significant murmur, no rub Gastrointestinal: soft, non-tender, no distention, positive bowel sounds Musculoskeletal: no edema, pulses present Intubated but awake and following commands. Skin: no rash, normal turgor Dx/Plan (1) Acute respiratory failure with hypoxia Code(s): J96.01 - ACUTE RESPIRATORY FAILURE WITH HYPOXIA Status: Acute (2) Cardiac arrest Code(s): I46.9 - CARDIAC ARREST, CAUSE UNSPECIFIED Status: Acute (3) Torsades de pointes Code(s): I47.2 - VENTRICULAR TACHYCARDIA Status: Acute (4) Anemia of renal disease Code(s): D63.1 - ANEMIA IN CHRONIC KIDNEY DISEASE Status: Chronic (5) COPD (chronic obstructive pulmonary disease) Status: Chronic Qualifiers: COPD type: unspecified COPD Qualified Code(s): J44.9 - Chronic obstructive pulmonary disease, unspecified (6) Chronic diastolic (congestive) heart failure Code(s): I50.32 - CHRONIC DIASTOLIC (CONGESTIVE) HEART FAILURE Status: Chronic (7) Dyslipidemia Code(s): E78.5 - HYPERLIPIDEMIA, UNSPECIFIED Status: Chronic (8) ESRD (end stage renal disease) on dialysis Code(s): N18.6 - END STAGE RENAL DISEASE; Z99.2 - DEPENDENCE ON RENAL DIALYSIS Status: Chronic (9) HTN (hypertension) Code(s): I10 - ESSENTIAL (PRIMARY) HYPERTENSION Status: Chronic Qualifiers: Hypertension type: essential hypertension Qualified Code(s): I10 - Essential (primary) hypertension (10) Thrombocytopenia Code(s): D69.6 - THROMBOCYTOPENIA, UNSPECIFIED Status: Chronic (11) Hypoglycemia Code(s): E16.2 - HYPOGLYCEMIA, UNSPECIFIED Status: Resolved - Plan cont current plan of care - Extubation planned today. - Amiodarone continued for now but will likely be discontinued in the future re QRS widening - Keep MAg > 2 and Potassium > 4 - Hemodialysis per nephrology. - Continue other medications. Review of Systems - Medications/Allergies Allergies/Adverse Reactions: Allergies Allergy/AdvReac Type Severity Reaction Status Date / Time iodine Allergy Severe Verified 12/22/17 13:14 Penicillins Allergy Severe Verified 12/22/17 13:14 Medications: Current Medications Acetaminophen (Tylenol) 650 mg PO Q4H PRN PRN Reason: Headache/Fever or Pain Albuterol Sulfate (Proventil Hfa) 2 puff INH Q4H PRN PRN Reason: SOB &/or Wheezing Amiodarone HCl (Cordarone) 200 mg PER TUBE TID [facility] Last Admin: 01/19/18 20:56 Dose: 200 mg Aspirin (Aspirin Chewable) 81 mg PO DAILY [facility] Last Admin: 01/20/18 10:34 Dose: Not Given Atorvastatin Calcium (Lipitor) 40 mg PO HS [facility] Last Admin: 01/19/18 20:55 Dose: 40 mg Clonidine (Catapres) 0.2 mg PO BID [facility] Last Admin: 01/20/18 10:34 Dose: Not Given Clopidogrel Bisulfate (Plavix) 75 mg PO DAILY [facility] Last Admin: 01/19/18 10:05 Dose: 75 mg Dextrose/Water (Dextrose 50%) 25 gm SLOW IVP PRN PRN PRN Reason: Hypoglycemia Last Admin: 01/19/18 10:29 Dose: 25 gm Epoetin Johnson (Procrit) 10,000 units SC Q7D@1130 [facility] Last Admin: 01/16/18 15:45 Dose: 10,000 units Ferrous Sulfate (Feosol) 325 mg PO QAM-[facility] Last Admin: 01/20/18 10:33 Dose: Not Given Folic Acid (Folvite) 1 mg PO DAILY [facility] Last Admin: 01/20/18 10:34 Dose: Not Given Glucagon (Glucagon) 1 mg IM PRN PRN PRN Reason: Hypoglycemia Norepinephrine Bitartrate (Levophed) 250 mls @ 0 mls/hr IVPB INF [facility]; Titrate PRN Reason: Protocol Dextrose/Water (D5w) 1,000 mls @ 0 mls/hr IV .Q0M PRN; As Directed PRN Reason: Hypoglycemia Dexmedetomidine HCl 200 mcg/ (Sodium Chloride) 50 mls @ 0 mls/hr IVPB INF [facility]; Per Protocol PRN Reason: Protocol Last Admin: 01/18/18 16:02 Dose: 50 mls Dextrose/Sodium Chloride (D5 1/2 Ns) 1,000 mls @ 50 mls/hr IV .Q20H [facility] Last Admin: 01/19/18 13:10 Dose: 1,000 mls Lorazepam (Ativan) 2 mg SLOW IVP Q1H PRN PRN Reason: Breakthrough agitation Stop: 02/15/18 14:29 Last Admin: 01/16/18 14:41 Dose: 2 mg Morphine Sulfate (Morphine) 2 mg SLOW IVP Q1H PRN PRN Reason: breakthrough pain/agitation Stop: 02/15/18 14:29 Discontinue Previous Narcotic Pain Medications And Benzodiazepines 1 each FS .ONE [facility] Stop: 02/15/18 14:29 Pantoprazole Sodium (Protonix) 40 mg IVP Q12HR [facility] Last Admin: 01/20/18 10:34 Dose: Not Given Polyethylene Glycol (Miralax) 17 gm PO DAILYPRN PRN PRN Reason: Constipation Potassium Chloride (K-Dur) 20 meq PO QAM-[facility] Sevelamer Carbonate (Renvela) 800 mg PO TID-[facility] Last Admin: 01/20/18 07:47 Dose: Not Given Sodium Chloride (Flush - Normal Saline) 10 ml IVF Q12HR [facility] Last Admin: 01/19/18 20:56 Dose: 10 ml Sodium Chloride (Flush - Normal Saline) 10 ml IVF PRN PRN PRN Reason: Saline Flush Vitamin B Complex/Vit C/Folic Acid (Nephro-Tanika Tablet) 1 tab PO DAILY [facility] Last Admin: 01/20/18 10:34 Dose: Not Given
--- NOTE | 2018-01-20 12:42 | PDOC.CTH ---
<Elisabeth Vidal - Last Filed: 01/20/18 12:32> Cardiology Progress Note - Subjective EP progress noted: Patient remains intubated. Not sedated. Eyes open. Unable to obtain ROS. - ROS not able to obtain ROS - Objective Vital Signs Temp Pulse Resp BP Pulse Ox 01/20/18 10:34 129/54 L 01/20/18 09:54 70 18 99 01/20/18 08:00 98.1 F 70 18 59 L 01/20/18 06:10 60 129/54 L 01/20/18 04:00 98.8 F Admit Weight 134 lb Weight 124 lb 8.979 oz 01/19/18 01/20/18 01/21/18 06:59 06:59 06:59 Intake Total 2279.1 1732.6 240 Output Total 0 0 Balance 2279.1 1732.6 240 - Physical Examination General/Neuro: NAD Neck: no JVD present Lungs: unlabored respirations Heart: RRR Abdomen: no HSM, NT/ND - Telemetry Telemetry Rhythm: NSR - Labs Result Diagrams: 01/20/18 04:42 01/20/18 04:42 Troponin/CKMB CK-MB (CK-2) 1.1 ng/mL (0-6.6) 01/17/18 04:47 Troponin I 0.282 ng/mL (< 0.028) H 01/17/18 04:47 - Assessment/Plan 1. Sustained, shock terminated VT/TDP arrest- mild anemia, mild electrolyte imbalances. Now suppressed with PO amiodarone. 2. QT prolongation- recent TDP. On amiodarone, not ideal agent with QT prolongation but QT is holding stable for now. 3. New ICM, EF 20-25% with stenting of RCA on 01/16. 4. Respiratory failure- remains intubated. Weaning, low volumes but ABG stable. Possible extubation today per RN. 5. Recurrent GIB- mild anemia 6. ESRD on HD Continue with tight electrolyte control. Plan for ICD implant once stabilized and extubated given her VT arrest requiring defibrillation. Will continue to monitor. Tentatively plan to DC amiodarone once ICD has been placed. <Dimitri Martinez - Last Filed: 01/20/18 15:33> Cardiology Progress Note - Objective Vital Signs Temp Pulse Resp BP Pulse Ox 01/20/18 12:00 97.8 F 96 01/20/18 10:34 129/54 L 01/20/18 09:54 70 18 99 01/20/18 08:00 98.1 F 70 18 59 L 01/20/18 06:10 60 129/54 L 01/20/18 04:00 98.8 F Admit Weight 134 lb Weight 124 lb 8.979 oz 01/19/18 01/20/18 01/21/18 06:59 06:59 06:59 Intake Total 2279.1 1732.6 480 Output Total 0 0 Balance 2279.1 1732.6 480 - Labs Result Diagrams: 01/20/18 04:42 01/20/18 04:42 Troponin/CKMB CK-MB (CK-2) 1.1 ng/mL (0-6.6) 01/17/18 04:47 Troponin I 0.282 ng/mL (< 0.028) H 01/17/18 04:47 Attending Addendum - Attending Addendum Date/Time: 01/20/18 [id number] I personally evaluated the patient and discussed the management with Ms Vidal. I agree with the History, Examination, Assessment and Plan documented above with any addition or exceptions noted below.
[2018-01-20] MEDS: Amiodarone 200 MG TAB PER TUBE SCH ×3 (13:06→20:16)
[2018-01-20] MEDS: Clopidogrel Bisulfate 75 MG TAB PO SCH (13:06)
--- NOTE | 2018-01-20 13:53 | PRG ---
DATE OF SERVICE: 01/20/2018 Dai Sullivan is in no distress. She was following commands. She was very alert this morning. PHYSICAL EXAMINATION: VITAL SIGNS: Blood pressure 120/52, heart rate 60, respiratory rate 19 Her tidal volumes with press ure support on and pressure support at 0 were the same. LUNGS: Lungs were clear. HEART: Regular rhythm. ABDOMEN: Abdomen is soft. EXTREMITIES: Without clubbing, cyanosis, or edema. NEUROLOGIC: Nonfocal. LABORATORY DATA: White count 4.1, hemoglobin 9.2, platelets 118. Sodium 133, potassium 3.7, chloride 101, bicarbonate 24, BUN 70, creatinine 4.36. She is to be dialy zed today, pH 7.36, CO2 41, pO2 78. Chest radiograph showed findings suggestive of mild edema, bilateral effusions. IMPRESSION: 1. Respiratory failure after a cardiac arrest. 2. Status post coronary stenting. 3. End-stage renal disease. I felt she was a candidate for extubation. She has subsequently has been extubated and is comfortabl e on a 2 liter nasal cannula. She will remain in the Critical Care Unit. She will be dialyzed today. Critical care time was 30 minutes.
[2018-01-20] MEDS: Atorvastatin Calcium 40 MG TAB PO SCH (20:16)
[2018-01-20] MEDS: Acetaminophen 325 MG TAB PO PRN (23:51)
[2018-01-21 05:00] LABS: #Eosinphils 0.2 thou/uL (0.0-0.7); #Lymphocytes 0.6 thou/uL (1.20-3.40); #Monocytes 0.5 thou/uL (0.11-0.59); #Neutrophils 2.7 thou/uL (1.40-6.50); %Basophils 0.7 % (0.0-1.0); %Eosinophils 5.3 % (0.0-10.0); %Lymphocytes 13.8 % (21.0-51.0); %Monocytes 12.9 % (0.0-10.0); %Neutrophils 67.2 % (42.0-75.0); Mean Corpuscular HGB CONC 33.3 g/dL (32.0-36.0); Mean Corpuscular Hemoglobin 33.8 pg (27.0-31.0); Mean Platelet Volume 7.6 fL (7.4-10.4); Platelet Count 132 thou/uL (130-400); RBC Distribution Width 17.1 % (11.5-14.5); Red Blood Cell (RBC) Count 2.66 mill/uL (4.20-5.40); White Blood Cell (WBC) Count 4.1 thou/uL (4.8-10.8)
[2018-01-21 05:24] LABS: Anion Gap 11 mmol/L (10-20); BUN (Urea Nitrogen) 9 mg/dL (9.8-20.1); Calc. Creatinine Clearance 16 mL/min (70-130); Calcium 7.7 mg/dL (7.8-10.44); Carbon Dioxide 28 mmol/L (23-31); Chloride 103 mmol/L (98-107); Estimated GFR-MDRD 17; Glucose 93 mg/dL (80-115); Magnesium 1.9 mg/dL (1.6-2.6); Potassium 3.4 mmol/L (3.5-5.1); Sodium 139 mmol/L (136-145)
[2018-01-21] MEDS: Dextrose 5 %-0.45 % NaCl 1,000 ML IV SCH ×2 (05:38→23:50)
[2018-01-21] MEDS: Ferrous Sulfate 325 MG TAB PO SCH (07:57)
[2018-01-21] MEDS: Sevelamer Carbonate 800 MG TAB PO SCH ×3 (07:57→16:52)
[2018-01-21] MEDS: Amiodarone 200 MG TAB PER TUBE SCH (07:58)
[2018-01-21] MEDS: cloNIDine 0.1 MG TAB PO SCH ×2 (07:58→20:10)
[2018-01-21] MEDS: Clopidogrel Bisulfate 75 MG TAB PO SCH (07:58)
[2018-01-21] MEDS: Folic Acid 1 MG TAB PO SCH (07:59)
[2018-01-21] MEDS: Folic Acid/Vit B Comp W-C PO SCH (07:59)
[2018-01-21] MEDS: Pantoprazole 40 MG VIAL IVP SCH (07:59)
--- NOTE | 2018-01-21 08:35 | PRG ---
DATE OF SERVICE: 01/21/2018 SUBJECTIVE: Ms. Sullivan is a 62-year-old black female with ESRD and being [facility] maintenance hemod[facility]. She underwent dialysis yesterday without any difficulty. Fluid removal was done. The patient was initially admitted for ? of GI bleed. During this hospitalizatio n, she developed V-tach and underwent defibrillation. She has been transferred to the ICU and was pl aced on ventilator support. Yesterday she was extubated. She has been evaluated by Cardiology and t he plan is to eventually place her to have an AICD placed. Currently, she is on p.o. amiodarone, whi ch eventually will be tapered off once the AICD is placed. She feels better today. She denies any c hest pain or shortness of breath. PHYSICAL EXAMINATION: VITAL SIGNS: Blood pressure is 166/100, temperature 98.3, heart rate 72, temperature 98.3, respirato ry rate 16, pulse ox 98%. GENERAL: Awake, supine, comfortable, not in overt distress. SKIN: Adequate turgor. HEENT: She has slightly pale conjunctivae, anicteric sclerae. NECK: No neck mass, no carotid bruits, no JVD. CHEST: No deformities. LUNGS: Clear breath sounds, no wheezing, no crackles. HEART: Normal sinus rhythm. No murmur, no gallops or rubs. ABDOMEN: Globular, soft, nontender. No masses. EXTREMITIES: No edema, no deformities. MEDICATIONS: 01/21/2018 - Reviewed. LABORATORY DATA: 01/21/2018 - White count 4.1, hemoglobin 9, sodium 139, potassium 3.4, chloride 103 , carbon dioxide 28, BUN 9, creatinine 3.38, calcium 7.7, magnesium 1.9. ASSESSMENT AND PLAN: 1. End-stage renal disease, stable. Continuing current hemodialysis regimen. Fluid removal only as tolerated. Next dialysis will be tomorrow, Thursday. There is no indication for an acute dialytic in tervention. 2. Chronic anemia. Currently on Epogen 10,000 units subcutaneously every week. 3. Status post ventricular tach/cardiorespiratory arrest. Cardiology is following. The patient deny l have a planned AICD placement once the patient is more stable. Eventually amiodarone will be taper ed off. 4. Status post cardiorespiratory arrest - the patient currently extubated now. Pulmonary following. Recheck base met and CBC in a.m.
[2018-01-21] MEDS ORDERED: Potassium Chloride 20 MEQ TAB PO SCH (08:45)
[2018-01-21] MEDS ORDERED: Carvedilol 3.125 MG TAB PO SCH (10:45)
--- NOTE | 2018-01-21 11:50 | PRG ---
DATE OF SERVICE: 01/21/2018 SUBJECTIVE: Ms. Sullivan is walking in the martini without any complaints. She said she is feeling great . OBJECTIVE: VITAL SIGNS: Blood pressure is 158/69, heart rate 79, respiratory rate is in 20s, oximetry is 98%. LUNGS: Clear. HEART: Regular rhythm. ABDOMEN: Soft. LABORATORY DATA: White count 4.1, hemoglobin 9.0, platelets 132,000. Potassium is 3.4. IMPRESSION: 1. Status post arrest, followed by intubation. 2. Status post coronary stenting. 3. End-stage renal disease. She has bounced back in an amazing fashion. She is a candidate to move out of the Critical Care Unit in my opinion. She will continue with dialy sis, cardiac care, and physical therapy.
--- NOTE | 2018-01-21 14:03 | PDOC.CTH ---
<Elisabeth Vidal - Last Filed: 01/21/18 14:02> Cardiology Progress Note - Subjective EP progress note: Patient was extubated yesterday and is feeling fairly well but weak. Eating and drinking well. No cardiac concerns or complaints today. Denies heart racing, palpitations, chest paint, pressure, syncope/near syncope, stroke or stroke like symptoms. - Objective Vital Signs Temp Pulse Pulse Pulse Resp BP BP 01/21/18 11:00 98.1 F 01/21/18 09:01 72 74 129/63 01/21/18 08:00 98.3 F 80 20 01/21/18 07:58 166/100 H 01/21/18 06:24 01/21/18 04:00 98.7 F BP Pulse Ox Pulse Ox Pulse Ox 01/21/18 11:00 01/21/18 09:01 181/91 H 97 97 01/21/18 08:00 96 01/21/18 07:58 01/21/18 06:24 94 L 01/21/18 04:00 Admit Weight 134 lb Weight 124 lb 8.979 oz 01/20/18 01/21/18 01/22/18 06:59 06:59 06:59 Intake Total 1732.6 2013 533 Output Total 300 0 Balance 1732.6 1713 533 - Physical Examination General/Neuro: alert & oriented x3, NAD Neck: no JVD present Lungs: unlabored respirations Heart: RRR Abdomen: NT/ND, soft - Telemetry Telemetry Rhythm: NSR - Labs Result Diagrams: 01/21/18 04:10 01/21/18 04:10 Troponin/CKMB CK-MB (CK-2) 1.1 ng/mL (0-6.6) 01/17/18 04:47 Troponin I 0.282 ng/mL (< 0.028) H 01/17/18 04:47 - Assessment/Plan 1. Sustained, shock terminated VT/TDP arrest- mild anemia, mild electrolyte imbalances. Now suppressed with PO amiodarone. 2. QT prolongation- recent TDP. On amiodarone, not ideal agent with QT prolongation but QT is holding stable for now. QT 360ms today 3. New ICM, EF 20-25% with stenting of RCA on 01/16. 4. Respiratory failure post arrest- now extubated on NC 5. Recurrent GIB- mild anemia 6. ESRD on HD Continue with tight electrolyte control. Plan for ICD implant tomorrow. Risks discussed with patient. ICD shared decision making tool used in discussion with patient. Risks include pain, swelling, infections, pneumothorax, pericardial effusion, tamponade, and need for emergent CV surgery. Patient voices understanding and wishes to proceed with ICD placement. Tentatively plan to DC amiodarone once ICD has been placed. <Dimitri Martinez - Last Filed: 01/22/18 14:42> Cardiology Progress Note - Objective Vital Signs Temp Pulse Resp BP Pulse Ox 01/22/18 12:15 98.1 F 69 14 107/64 93 L 01/22/18 08:45 98.2 F 70 15 01/22/18 07:30 98.7 F 65 16 103/57 L 99 01/22/18 03:33 98.2 F 70 15 92/58 L 93 L Admit Weight 134 lb Weight 144 lb 3.2 oz 01/21/18 01/22/18 01/23/18 06:59 06:59 06:59 Intake Total 2012 1033 Output Total 300 0 Balance 1713 1033 - Labs Result Diagrams: 01/22/18 04:57 01/22/18 04:57 Troponin/CKMB CK-MB (CK-2) 1.1 ng/mL (0-6.6) 01/17/18 04:47 Troponin I 0.282 ng/mL (< 0.028) H 01/17/18 04:47 - Assessment/Plan Hence the primary VF arrest, not entirely explained by the 80% RCA lesion, and the likely benefit of atrial overdrive pacing - proceeding with ICD impant is very reasonable. Johnny stop amiodarone after ICD implant. Attending Addendum - Attending Addendum Date/Time: 01/22/18 [id number] I personally evaluated the patient and discussed the management with ms Vidal. I agree with the History, Examination, Assessment and Plan documented above with any addition or exceptions noted below.
--- NOTE | 2018-01-21 15:04 | PDOC.PN ---
- Subjective Encounter Start Date: 01/21/18 Encounter Start Time: 09:40 Pt seen for followup re: acute respiratory failure. Feels better, denies chest pain, shortness of breath, fevers or chills. - Objective Resuscitation Status: Resuscitation Status FULL:Full Resuscitation MAR Reviewed: Yes Vital Signs & Weight: Vital Signs (12 hours) Temp Pulse Pulse Pulse Resp BP BP 01/21/18 11:00 98.1 F 01/21/18 09:01 72 74 129/63 01/21/18 08:00 98.3 F 80 20 01/21/18 07:58 166/100 H 01/21/18 06:24 01/21/18 04:00 98.7 F BP Pulse Ox Pulse Ox Pulse Ox 01/21/18 11:00 01/21/18 09:01 181/91 H 97 97 01/21/18 08:00 96 01/21/18 07:58 01/21/18 06:24 94 L 01/21/18 04:00 Weight Admit Weight 134 lb Weight 124 lb 8.979 oz Most Recent Monitor Data Heart Rate from ECG 71 NIBP 155/80 NIBP BP-Mean 92 Respiration from ECG 25 SpO2 91 I&O: 01/20/18 01/21/18 01/22/18 06:59 06:59 06:59 Intake Total 1732.6 2013 533 Output Total 300 0 Balance 1732.6 1713 533 Result Diagrams: 01/21/18 04:10 01/21/18 04:10 Additional Labs: Accuchecks 01/21/18 01/21/18 01/20/18 11:49 04:11 23:57 POC Glucose 108 94 155 H 01/20/18 19:19 POC Glucose 160 H EKG Reviewed by me: Yes (Tele: NSR) Phys Exam - Physical Examination Constitutional: NAD HEENT: moist MMs, sclera anicteric, oral pharynx no lesions, 2+ tonsils Neck: no nodes, no JVD, supple, full ROM Respiratory: no wheezing, no rales, no rhonchi, clear to auscultation bilateral Cardiovascular: RRR, no rub S1, S2 Gastrointestinal: soft, non-tender, no distention, positive bowel sounds Neurological: moves all 4 limbs Psychiatric: normal affect Deviation from normal: Oriented to person and place, not to time Dx/Plan (1) Acute respiratory failure with hypoxia Code(s): J96.01 - ACUTE RESPIRATORY FAILURE WITH HYPOXIA Status: Acute Comment: Improving, pt was extubated yesterday (2) Cardiac arrest Code(s): I46.9 - CARDIAC ARREST, CAUSE UNSPECIFIED Status: Acute Comment: no recurrence (3) Torsades de pointes Code(s): I47.2 - VENTRICULAR TACHYCARDIA Status: Acute Comment: s/p PCI with stent (4) COPD (chronic obstructive pulmonary disease) Status: Chronic Qualifiers: COPD type: unspecified COPD Qualified Code(s): J44.9 - Chronic obstructive pulmonary disease, unspecified (5) Chronic diastolic (congestive) heart failure Code(s): I50.32 - CHRONIC DIASTOLIC (CONGESTIVE) HEART FAILURE Status: Chronic Comment: stable (6) ESRD (end stage renal disease) on dialysis Code(s): N18.6 - END STAGE RENAL DISEASE; Z99.2 - DEPENDENCE ON RENAL DIALYSIS Status: Chronic Comment: Maintainanace dialysis per nephrology service (7) HTN (hypertension) Code(s): I10 - ESSENTIAL (PRIMARY) HYPERTENSION Status: Chronic Qualifiers: Hypertension type: essential hypertension Qualified Code(s): I10 - Essential (primary) hypertension Comment: Monitor vital signs, titrate antihypertensives as needed (8) PVD (peripheral vascular disease) Code(s): I73.9 - PERIPHERAL VASCULAR DISEASE, UNSPECIFIED Status: Chronic Comment: stable (9) Dyslipidemia Code(s): E78.5 - HYPERLIPIDEMIA, UNSPECIFIED Status: Chronic - Plan * . Review of Systems - Review of Systems Constitutional: negative: fever, chills, sweats, weakness, malaise Respiratory: negative: Cough, Shortness of Breath, SOB with Excertion, Sputum, Wheezing Cardiovascular: negative: chest pain, palpitations, orthopnea, paroxysmal nocturnal dyspnea, edema, light headedness Gastrointestinal: negative: Nausea, Vomiting, Abdominal Pain, Diarrhea, Constipation, Melena, Hematochezia Genitourinary: negative: Dysuria, Frequency, Incontinence, Hematuria, Retention Skin: negative: Rash, Lesions, Neftali, Bruising - Medications/Allergies Allergies/Adverse Reactions: Allergies Allergy/AdvReac Type Severity Reaction Status Date / Time iodine Allergy Severe Verified 12/22/17 13:14 Penicillins Allergy Severe Verified 12/22/17 13:14 Medications: Current Medications Acetaminophen (Tylenol) 650 mg PO Q4H PRN PRN Reason: Headache/Fever or Pain Last Admin: 01/20/18 23:51 Dose: 650 mg Albuterol Sulfate (Proventil Hfa) 2 puff INH Q4H PRN PRN Reason: SOB &/or Wheezing Amiodarone HCl (Cordarone) 200 mg PO BID [facility] Aspirin (Aspirin Chewable) 81 mg PO DAILY [facility] Last Admin: 01/21/18 07:58 Dose: 81 mg Atorvastatin Calcium (Lipitor) 40 mg PO HS [facility] Last Admin: 01/20/18 20:16 Dose: 40 mg Carvedilol (Coreg) 6.25 mg PO BID-[facility] Clonidine (Catapres) 0.1 mg PO BID [facility] Clopidogrel Bisulfate (Plavix) 75 mg PO DAILY [facility] Last Admin: 01/21/18 07:58 Dose: 75 mg Dextrose/Water (Dextrose 50%) 25 gm SLOW IVP PRN PRN PRN Reason: Hypoglycemia Last Admin: 01/19/18 10:29 Dose: 25 gm Epoetin Johnson (Procrit) 10,000 units SC Q7D@1130 [facility] Last Admin: 01/16/18 15:45 Dose: 10,000 units Ferrous Sulfate (Feosol) 325 mg PO QAM-[facility] Last Admin: 01/21/18 07:57 Dose: 325 mg Folic Acid (Folvite) 1 mg PO DAILY [facility] Last Admin: 01/21/18 07:59 Dose: 1 mg Glucagon (Glucagon) 1 mg IM PRN PRN PRN Reason: Hypoglycemia Dextrose/Water (D5w) 1,000 mls @ 0 mls/hr IV .Q0M PRN; As Directed PRN Reason: Hypoglycemia Dextrose/Sodium Chloride (D5 1/2 Ns) 1,000 mls @ 50 mls/hr IV .Q20H [facility] Last Admin: 01/21/18 05:38 Dose: 1,000 mls Lisinopril (Zestril) 5 mg PO BID [facility] Morphine Sulfate (Morphine) 2 mg SLOW IVP Q1H PRN PRN Reason: breakthrough pain/agitation Stop: 02/15/18 14:29 Pantoprazole Sodium (Protonix) 40 mg PO DAILY [facility] Polyethylene Glycol (Miralax) 17 gm PO DAILYPRN PRN PRN Reason: Constipation Sevelamer Carbonate (Renvela) 800 mg PO TID-WM [facility] Last Admin: 01/21/18 11:42 Dose: 800 mg Sodium Chloride (Flush - Normal Saline) 10 ml IVF Q12HR [facility] Last Admin: 01/21/18 07:59 Dose: 10 ml Sodium Chloride (Flush - Normal Saline) 10 ml IVF PRN PRN PRN Reason: Saline Flush Vitamin B Complex/Vit C/Folic Acid (Nephro-Tanika Tablet) 1 tab PO DAILY [facility] Last Admin: 01/21/18 07:59 Dose: 1 tab
--- NOTE | 2018-01-21 15:21 | PDOC.PN ---
- Subjective Encounter Start Date: 01/21/18 - Objective Resuscitation Status: Resuscitation Status FULL:Full Resuscitation Vital Signs & Weight: Vital Signs (12 hours) Temp Pulse Pulse Pulse Resp BP BP 01/21/18 11:00 98.1 F 01/21/18 09:01 72 74 129/63 01/21/18 08:00 98.3 F 80 20 01/21/18 07:58 166/100 H 01/21/18 06:24 01/21/18 04:00 98.7 F BP Pulse Ox Pulse Ox Pulse Ox 01/21/18 11:00 01/21/18 09:01 181/91 H 97 97 01/21/18 08:00 96 01/21/18 07:58 01/21/18 06:24 94 L 01/21/18 04:00 Weight Admit Weight 134 lb Weight 124 lb 8.979 oz Most Recent Monitor Data Heart Rate from ECG 71 NIBP 155/80 NIBP BP-Mean 92 Respiration from ECG 25 SpO2 91 I&O: 01/20/18 01/21/18 01/22/18 06:59 06:59 06:59 Intake Total 1732.6 2013 533 Output Total 300 0 Balance 1732.6 1713 533 Result Diagrams: 01/21/18 04:10 01/21/18 04:10 Additional Labs: Accuchecks 01/21/18 01/21/18 01/20/18 11:49 04:11 23:57 POC Glucose 108 94 155 H 01/20/18 19:19 POC Glucose 160 H Dx/Plan (1) Acute respiratory failure with hypoxia Code(s): J96.01 - ACUTE RESPIRATORY FAILURE WITH HYPOXIA Status: Acute Comment: Improving, pt was extubated yesterday (2) Cardiac arrest Code(s): I46.9 - CARDIAC ARREST, CAUSE UNSPECIFIED Status: Acute Comment: no recurrence (3) Torsades de pointes Code(s): I47.2 - VENTRICULAR TACHYCARDIA Status: Acute Comment: s/p PCI with stent (4) COPD (chronic obstructive pulmonary disease) Status: Chronic Qualifiers: COPD type: unspecified COPD Qualified Code(s): J44.9 - Chronic obstructive pulmonary disease, unspecified (5) Chronic diastolic (congestive) heart failure Code(s): I50.32 - CHRONIC DIASTOLIC (CONGESTIVE) HEART FAILURE Status: Chronic Comment: stable (6) ESRD (end stage renal disease) on dialysis Code(s): N18.6 - END STAGE RENAL DISEASE; Z99.2 - DEPENDENCE ON RENAL DIALYSIS Status: Chronic Comment: Maintainanace dialysis per nephrology service (7) HTN (hypertension) Code(s): I10 - ESSENTIAL (PRIMARY) HYPERTENSION Status: Chronic Qualifiers: Hypertension type: essential hypertension Qualified Code(s): I10 - Essential (primary) hypertension Comment: Monitor vital signs, titrate antihypertensives as needed (8) PVD (peripheral vascular disease) Code(s): I73.9 - PERIPHERAL VASCULAR DISEASE, UNSPECIFIED Status: Chronic Comment: stable (9) Dyslipidemia Code(s): E78.5 - HYPERLIPIDEMIA, UNSPECIFIED Status: Chronic - Plan * .
[2018-01-21] MEDS: Carvedilol 6.25 MG TAB PO SCH (16:52)
[2018-01-21] MEDS: Lisinopril 5 MG TAB PO SCH (20:09)
[2018-01-21] MEDS: Atorvastatin Calcium 40 MG TAB PO SCH (20:10)
[2018-01-21] MEDS: Amiodarone 200 MG TAB PO SCH (20:11)
[2018-01-21] MEDS ORDERED: CEFAZOLIN/Water 2 GM/20 ML SYRINGE SLOW IVP SCH (23:45)
[2018-01-22 05:08] LABS: #Eosinphils 0.4 thou/uL (0.0-0.7); #Lymphocytes 0.7 thou/uL (1.20-3.40); #Monocytes 0.4 thou/uL (0.11-0.59); #Neutrophils 2.7 thou/uL (1.40-6.50); %Basophils 0.4 % (0.0-1.0); %Eosinophils 8.7 % (0.0-10.0); %Monocytes 9.7 % (0.0-10.0); %Neutrophils 65.2 % (42.0-75.0); Hemoglobin 9.3 g/dL (12.0-16.0); Mean Corpuscular HGB CONC 32.7 g/dL (32.0-36.0); Mean Corpuscular Hemoglobin 34.2 pg (27.0-31.0); Mean Platelet Volume 8.1 fL (7.4-10.4); Platelet Count 131 thou/uL (130-400); RBC Distribution Width 17.7 % (11.5-14.5); Red Blood Cell (RBC) Count 2.71 mill/uL (4.20-5.40); White Blood Cell (WBC) Count 4.1 thou/uL (4.8-10.8)
[2018-01-22 05:27] LABS: Anion Gap 13 mmol/L (10-20); BUN (Urea Nitrogen) 13 mg/dL (9.8-20.1); Calc. Creatinine Clearance 13 mL/min (70-130); Calcium 7.8 mg/dL (7.8-10.44); Carbon Dioxide 24 mmol/L (23-31); Chloride 106 mmol/L (98-107); Estimated GFR-MDRD 12; Glucose 119 mg/dL (80-115); Magnesium 1.9 mg/dL (1.6-2.6); Potassium 3.9 mmol/L (3.5-5.1); Sodium 139 mmol/L (136-145)
[2018-01-22] MEDS ORDERED: Heparin 1,000 UNITS/ML VIAL ONE (11:11)
--- NOTE | 2018-01-22 12:40 | PRG ---
DATE OF SERVICE: 01/22/2018 Dai Sullivan is awake and alert. She has no complaints. PHYSICAL EXAMINATION: VITAL SIGNS: She is afebrile, heart rate 70, respiratory rate 15, oximetry is 99 on 2 liters. LUNGS: Her lungs are clear. HEART: Regular rhythm. S1 and S2 are normal. ABDOMEN: Soft and nontender. EXTREMITIES: Without clubbing, cyanosis, or edema. NEUROLOGIC: Nonfocal. She is oriented x3. LABORATORY: White count 4.1, hemoglobin 9.3, platelets 131. Sodium 139, potassium 3.9, chloride 106, bicarbonate 24, BUN 13, creatinine 4.67. IMPRESSION: 1. Status post ventricular fibrillation arrest emergently intubated by Dr. Toussaint, clinically doing great. She has no anoxic sequelae. This was a brief arrest fortunately. 2. Cardiomyopathy tentatively scheduled for defibrillator implantation. 3. End-stage renal disease. PLAN: Continue with physical therapy, monitoring. She is still on amiodarone. She still has the central line in place. This should be removed as soon as we have a defibrillator i n place.
[2018-01-22] MEDS ORDERED: Fentanyl 100 MCG/2 ML VIAL ONE (13:02)
[2018-01-22] MEDS ORDERED: Propofol 500 MG/50 ML VIAL ONE (13:02)
[2018-01-22] MEDS ORDERED: Lidocaine 1% (PF) 30 ML VIAL ONE (13:26)
--- NOTE | 2018-01-22 15:15 | RAD ---
CHEST 1 VIEW: Date: 01/22/18 HISTORY: Pacemaker placement. COMPARISON: Radiograph from 01/20/18. FINDINGS: Interval placement of an AICD/pacer with leads in good position. Heart size is enlarged. Central venous catheter tip at the inferior SVC. Mild edema. No pneumothorax. IMPRESSION: Uncomplicated placement of a dual lead AICD/pacer. POS: [facility]
[2018-01-22] MEDS: Sevelamer Carbonate 800 MG TAB PO SCH ×2 (15:26→16:40)
[2018-01-22] MEDS: Carvedilol 6.25 MG TAB PO SCH ×2 (15:26→16:40)
[2018-01-22] MEDS ORDERED: PHENYLEPHRINE-NS 100 MCG/ML 10 ML SYRINGE ONE (16:06)
[2018-01-22] MEDS ORDERED: PROPOFOL 200 MG/20 ML VIAL ONE (16:06)
[2018-01-22] MEDS: Ferrous Sulfate 325 MG TAB PO SCH (16:11)
[2018-01-22] MEDS: Clopidogrel Bisulfate 75 MG TAB PO SCH (16:12)
[2018-01-22] MEDS: Folic Acid/Vit B Comp W-C PO SCH (16:12)
[2018-01-22] MEDS: cloNIDine 0.1 MG TAB PO SCH ×2 (16:12→20:42)
[2018-01-22] MEDS: Amiodarone 200 MG TAB PO SCH ×2 (16:12→20:41)
[2018-01-22] MEDS: Lisinopril 5 MG TAB PO SCH ×2 (16:12→20:43)
[2018-01-22] MEDS: Folic Acid 1 MG TAB PO SCH (16:12)
--- NOTE | 2018-01-22 16:46 | PRG ---
DATE OF SERVICE: 01/22/2018 RENAL MEDICINE SUBJECTIVE: Ms. Sullivan is a 62-year-old black female with ESRD and currently on maintenance hemodial ysis. During this hospitalization, she developed V-tach and underwent defibrillation - she went into cardiorespiratory arrest. Cardiology has evaluated her and an AICD has been placed. This afternoon , she has no new complaints. The patient denies any chest pain, shortness of breath, nausea or vomit ing. She feels well. PHYSICAL EXAMINATION: VITAL SIGNS: Blood pressure is 102/58, heart rate 73, respiratory rate 18, temperature 97.7, and pul se ox 95%. GENERAL: Awake, alert, comfortable, not in distress. SKIN: Adequate turgor. HEENT: Slightly pale conjunctivae, anicteric sclerae. NECK: No neck mass, no carotid bruits, no JVD. CHEST: No deformities. LUNGS: Clear breath sounds. No wheezing, no crackles. CHEST: Has dressing on top of her left upper shoulder, upper left chest AICD. HEART: Normal sinus rhythm. No murmurs, no gallops, no rubs. ABDOMEN: Globular, soft, nontender. EXTREMITIES: No edema. MEDICATIONS: Medications of 01/22/2018 was reviewed. LABORATORY DATA: Laboratories of 01/22/2018; white count 4.1, hemoglobin 9.3. Sodium 139, potassium 3.9, chloride 106, carbon dioxide 24, BUN is 13, creatinine 4.67, calcium 7.8 and magnesium 1.9. ASSESSMENT AND PLAN: 1. End-stage renal disease, stable. We will continue current Thursday, Thursday, Thursday hemodialysis . I have scheduled for 3-hour hemodialysis today using no heparin due to the recent surgery. 2. Status post cardiorespiratory arrest much improved. The patient is status post cardiac catheteri zation with coronary stent placement and at the same time, she is status post AICD placement. 3. Anemia, continuing weekly Epogen with this patient. Agree with current management. We will recheck base met and CBC in a.m.
--- NOTE | 2018-01-22 16:50 | PDOC.PN ---
- Subjective Encounter Start Date: 01/22/18 Encounter Start Time: 08:40 Pt seen for followup re: acute hypoxic respiratory failure. Awake, alert, denies chest pain, shortness of breath, fevers or chills. - Objective Resuscitation Status: Resuscitation Status FULL:Full Resuscitation Vital Signs & Weight: Vital Signs (12 hours) Temp Pulse Pulse Pulse Resp BP BP 01/22/18 16:12 73 01/22/18 15:45 97.7 F 73 18 01/22/18 12:15 98.1 F 69 14 01/22/18 11:18 69 66 102/58 L 95/57 L 01/22/18 08:45 98.2 F 70 15 01/22/18 07:30 98.7 F 65 16 BP Pulse Ox Pulse Ox Pulse Ox 01/22/18 16:12 01/22/18 15:45 139/73 95 01/22/18 12:15 107/64 93 L 01/22/18 11:18 90 L 96 01/22/18 08:45 01/22/18 07:30 103/57 L 99 Weight Admit Weight 134 lb Weight 144 lb 3.2 oz Most Recent Monitor Data Heart Rate from ECG 68 NIBP 170/82 NIBP BP-Mean 133 Respiration from ECG 20 SpO2 83 I&O: 01/21/18 01/22/18 01/23/18 06:59 06:59 06:59 Intake Total 2012 1033 Output Total 300 0 Balance 1713 1033 Result Diagrams: 01/22/18 04:57 01/22/18 04:57 Additional Labs: Accuchecks 01/22/18 01/22/18 01/21/18 11:06 05:59 21:31 POC Glucose 110 107 109 Phys Exam - Physical Examination Constitutional: NAD HEENT: moist MMs, sclera anicteric, oral pharynx no lesions, 2+ tonsils Neck: no nodes, no JVD, supple, full ROM Respiratory: no wheezing, no rales, no rhonchi, clear to auscultation bilateral Cardiovascular: RRR, no rub S1, S2 Gastrointestinal: soft, non-tender, no distention, positive bowel sounds Neurological: moves all 4 limbs Psychiatric: normal affect Deviation from normal: Oriented to person and place but not to time Dx/Plan (1) Acute respiratory failure with hypoxia Code(s): J96.01 - ACUTE RESPIRATORY FAILURE WITH HYPOXIA Status: Acute Comment: Improving, s/p extubation, on telemetry floor now (2) Cardiac arrest Code(s): I46.9 - CARDIAC ARREST, CAUSE UNSPECIFIED Status: Acute Comment: no recurrence, cardiology following (3) Torsades de pointes Code(s): I47.2 - VENTRICULAR TACHYCARDIA Status: Acute Comment: s/p PCI with stent, going for ICD today (4) COPD (chronic obstructive pulmonary disease) Status: Chronic Qualifiers: COPD type: unspecified COPD Qualified Code(s): J44.9 - Chronic obstructive pulmonary disease, unspecified (5) Chronic diastolic (congestive) heart failure Code(s): I50.32 - CHRONIC DIASTOLIC (CONGESTIVE) HEART FAILURE Status: Chronic Comment: stable (6) ESRD (end stage renal disease) on dialysis Code(s): N18.6 - END STAGE RENAL DISEASE; Z99.2 - DEPENDENCE ON RENAL DIALYSIS Status: Chronic Comment: Maintainanace dialysis per nephrology service (7) HTN (hypertension) Code(s): I10 - ESSENTIAL (PRIMARY) HYPERTENSION Status: Chronic Qualifiers: Hypertension type: essential hypertension Qualified Code(s): I10 - Essential (primary) hypertension Comment: controlled (8) PVD (peripheral vascular disease) Code(s): I73.9 - PERIPHERAL VASCULAR DISEASE, UNSPECIFIED Status: Chronic Comment: stable (9) Dyslipidemia Code(s): E78.5 - HYPERLIPIDEMIA, UNSPECIFIED Status: Chronic - Plan * . Review of Systems - Review of Systems Constitutional: negative: fever, chills, sweats, weakness, malaise Respiratory: negative: Cough, Shortness of Breath, SOB with Excertion, Wheezing Cardiovascular: negative: chest pain, palpitations, orthopnea, paroxysmal nocturnal dyspnea, edema, light headedness Gastrointestinal: negative: Nausea, Vomiting, Abdominal Pain, Diarrhea, Constipation, Melena, Hematochezia Genitourinary: negative: Dysuria, Frequency, Incontinence, Hematuria, Retention Skin: negative: Rash, Lesions, Neftali, Bruising - Medications/Allergies Allergies/Adverse Reactions: Allergies Allergy/AdvReac Type Severity Reaction Status Date / Time iodine Allergy Severe Verified 12/22/17 13:14 Penicillins Allergy Severe Verified 12/22/17 13:14 Medications: Current Medications Acetaminophen (Tylenol) 650 mg PO Q4H PRN PRN Reason: Headache/Fever or Pain Last Admin: 01/20/18 23:51 Dose: 650 mg Albuterol Sulfate (Proventil Hfa) 2 puff INH Q4H PRN PRN Reason: SOB &/or Wheezing Amiodarone HCl (Cordarone) 200 mg PO BID [facility] Last Admin: 01/22/18 16:12 Dose: Not Given Aspirin (Aspirin Chewable) 81 mg PO DAILY [facility] Last Admin: 01/22/18 16:12 Dose: Not Given Atorvastatin Calcium (Lipitor) 40 mg PO [facility] Last Admin: 01/21/18 20:10 Dose: 40 mg Carvedilol (Coreg) 6.25 mg PO BID-[facility] Last Admin: 01/22/18 16:40 Dose: Not Given Clindamycin HCl (Cleocin) 300 mg PO TID [facility] Stop: 01/29/18 15:01 Clonidine (Catapres) 0.1 mg PO BID [facility] Last Admin: 01/22/18 16:12 Dose: Not Given Clopidogrel Bisulfate (Plavix) 75 mg PO DAILY [facility] Last Admin: 01/22/18 16:12 Dose: Not Given Dextrose/Water (Dextrose 50%) 25 gm SLOW IVP PRN PRN PRN Reason: Hypoglycemia Last Admin: 01/19/18 10:29 Dose: 25 gm Epoetin Johnson (Procrit) 10,000 units SC Q7D@1130 [facility] Last Admin: 01/16/18 15:45 Dose: 10,000 units Ferrous Sulfate (Feosol) 325 mg PO QAM-[facility] Last Admin: 01/22/18 16:11 Dose: Not Given Folic Acid (Folvite) 1 mg PO DAILY [facility] Last Admin: 01/22/18 16:12 Dose: Not Given Glucagon (Glucagon) 1 mg IM PRN PRN PRN Reason: Hypoglycemia Dextrose/Water (D5w) 1,000 mls @ 0 mls/hr IV .Q0M PRN; As Directed PRN Reason: Hypoglycemia Dextrose/Sodium Chloride (D5 1/2 Ns) 1,000 mls @ 50 mls/hr IV .Q20H [facility] Last Admin: 01/21/18 23:50 Dose: 1,000 mls Lisinopril (Zestril) 5 mg PO BID [facility] Last Admin: 01/22/18 16:12 Dose: Not Given Pantoprazole Sodium (Protonix) 40 mg PO DAILY [facility] Last Admin: 01/22/18 16:13 Dose: Not Given Polyethylene Glycol (Miralax) 17 gm PO DAILYPRN PRN PRN Reason: Constipation Sevelamer Carbonate (Renvela) 800 mg PO TID-[facility] Last Admin: 01/22/18 16:40 Dose: Not Given Sodium Chloride (Flush - Normal Saline) 10 ml IVF Q12HR [facility] Last Admin: 01/22/18 16:13 Dose: Not Given Sodium Chloride (Flush - Normal Saline) 10 ml IVF PRN PRN PRN Reason: Saline Flush Vitamin B Complex/Vit C/Folic Acid (Nephro-Tanika Tablet) 1 tab PO DAILY [facility] Last Admin: 01/22/18 16:12 Dose: Not Given
[2018-01-22] MEDS: Acetaminophen 325 MG TAB PO PRN ×2 (17:57→22:16)
[2018-01-22] MEDS: Clindamycin 150 MG CAP PO SCH (20:41)
[2018-01-22] MEDS: Atorvastatin Calcium 40 MG TAB PO SCH (20:41)
[2018-01-22] MEDS: Dextrose 5 %-0.45 % NaCl 1,000 ML IV SCH (20:53)
[2018-01-23] MEDS: Acetaminophen 325 MG TAB PO PRN ×3 (02:22→20:41)
[2018-01-23 05:53] LABS: #Eosinphils 0.3 thou/uL (0.0-0.7); #Lymphocytes 0.6 thou/uL (1.20-3.40); #Monocytes 0.4 thou/uL (0.11-0.59); #Neutrophils 2.6 thou/uL (1.40-6.50); %Basophils 0.3 % (0.0-1.0); %Eosinophils 7.6 % (0.0-10.0); %Lymphocytes 15.8 % (21.0-51.0); %Monocytes 10.9 % (0.0-10.0); %Neutrophils 65.4 % (42.0-75.0); Hemoglobin 9.1 g/dL (12.0-16.0); Mean Corpuscular HGB CONC 33.4 g/dL (32.0-36.0); Mean Platelet Volume 7.2 fL (7.4-10.4); Platelet Count 145 thou/uL (130-400); RBC Distribution Width 17.1 % (11.5-14.5); Red Blood Cell (RBC) Count 2.69 mill/uL (4.20-5.40); White Blood Cell (WBC) Count 3.9 thou/uL (4.8-10.8)
[2018-01-23 06:18] LABS: Anion Gap 11 mmol/L (10-20); BUN (Urea Nitrogen) 10 mg/dL (9.8-20.1); Calc. Creatinine Clearance 18 mL/min (70-130); Carbon Dioxide 28 mmol/L (23-31); Chloride 102 mmol/L (98-107); Estimated GFR-MDRD 17; Glucose 88 mg/dL (80-115); Magnesium 1.7 mg/dL (1.6-2.6); Potassium 3.8 mmol/L (3.5-5.1); Sodium 137 mmol/L (136-145)
--- NOTE | 2018-01-23 08:36 | HP ---
DATE OF ADMISSION: 01/16/2018. PRIMARY CARE PHYSICIAN: Dr. Roman. CHIEF COMPLAINT: Rectal bleeding. HISTORY OF PRESENT ILLNESS: Ms. Sullivan is a 62-year-old female with history of end-stage renal disea se who presented to the Emergency Department with 1 day history of rectal blood clots. She does have a history of previous bleed after hemorrhoidectomy. She says the blood comes out even when she is n ot using the bathroom and does have some diffuse abdominal pain. The last time she was admitted, she required 9 units of transfusion for the hemorrhoidal bleed. No fevers or chills. No nausea or vomi ting. While in the emergency department, the labs were normal. Patient was accepted to the floor. Overnig ht, she developed some acute shortness of breath and hypoxemia. Chest x-ray showed pulmonary edema. The patient normally has hemodialysis 3 times a week, but missed on 01/15 due to the rectal bleeding. Lasix was ordered, but subsequently was not effective. Urgent dialysis was requested and Dr. Axel khan called. PAST MEDICAL HISTORY: 1. Coronary artery disease. 2. End-stage renal disease on Thursday, Thursday, and Thursday with Dr. Reyna. 3. Hypertension. 4. Asthma. 5. Anemia of renal disease. PAST SURGICAL HISTORY: 1. Left forearm fistula. 2. PTCA with PCI and stents in the past. 3. Hemorrhoidectomy. 4. Cholecystectomy. 5. Bilateral carotid endarterectomy. HOME MEDICATIONS: 1. Folate 0.4 mg daily. 2. Clonidine 0.2 mg p.o. b.i.d. 3. Atorvastatin 40 mg p.o. at bedtime. 4. Iron sulfate 325 mg daily. 5. Protonix 40 mg daily. 6. Plavix 75 mg daily. 7. Losartan 100 mg daily. ALLERGIES: To IV DYE and PENICILLIN. FAMILY HISTORY: Negative for clotting or bleeding disorder. No immune dysfunction. There is diabet es and high blood pressure. SOCIAL HISTORY: Significant for rare social alcohol and smokes about 1/2 pack per day. No IV drug u se. REVIEW OF SYSTEMS: All systems negative except listed as per HPI. Initially on admission, she was c omplaining of diffuse abdominal pain. However, when she developed shortness of breath, she was extre cinthya hypertensive. PHYSICAL EXAMINATION: VITAL SIGNS: Temperature 98.6, pulse 93, blood pressure 173/99, respiratory rate 22, satting 93% on room air on admission. GENERAL: She is awake. She is alert. She is oriented x3. She is well-developed, well-nourished 62 -year-old -[place] female appears to be in no distress. HEENT: Head is normocephalic, atraumatic. Pupils equal, round, react to light bilaterally. Mucous m embranes are moist. There is no visible lesion or thrush. NECK: Supple. There is no lymphadenopathy, JVD, or thyromegaly. LUNGS: Clear anteriorly. Posteriorly, she has some faint bibasilar crackles. These do not clear wi th deep inspiration. CARDIOVASCULAR: She has a normal cardiac, slightly tachycardic, but regular. No audible murmur. ABDOMEN: Soft, nontender, nondistended. She has no rebound, rigidity or guarding. EXTREMITIES: No cyanosis or clubbing. She has got trace pedal edema. SKIN: Warm, moist and well perfused. She has no rashes or lesions. Left upper extremity fistula jc s a good palpable thrill. MUSCULOSKELETAL: Normal to inspection. Large joints appear normal. There is no evidence of inflamm ation or palpable effusions. NEUROLOGIC: Cranial nerves II through XII are grossly intact without any focal neurologic deficits. LABORATORY DATA AND X-RAY FINDINGS: Sodium 128, potassium 4.2, chloride 90, bicarbonate 23, BUN 24, creatinine 6.19, glucose 93 and calcium 8.6. Liver function is completely within normal limits. INR is 1.6. CBC showed a white count of 9.8, hemoglobin 11.9, hematocrit of 35.8, platelet count 170,00 0 with normal differential. Chest x-ray showed mild pulmonary edema. ASSESSMENT AND PLAN: 1. Hypertensive urgency. 2. Acute hypoxemic respiratory failure. 3. Rectal bleeding, likely hemorrhoidal. 4. Hypertension. 5. History of asthma, not acutely active. 6. Anemia of renal disease. 7. History of coronary artery disease. The patient will be transferred to the ICU for urgent dialysis. We will continue home medications as patient can tolerate, obviously hold Plavix for right now. We will ask GI to evaluate. Renal has b een consulted as well as Pulmonary and Critical Care to see. We will continue to titrate oxygen as n eeded. I think the big thing is getting her blood pressure down at present. We will use nitro paste , hydralazine, going to give her home dose of losartan that she missed today, and her clonidine. Greater than 45 minutes critical care time was spent on this patient.
[2018-01-23] MEDS: Folic Acid 1 MG TAB PO SCH (09:46)
[2018-01-23] MEDS: Clindamycin 150 MG CAP PO SCH ×3 (10:04→20:41)
[2018-01-23] MEDS: cloNIDine 0.1 MG TAB PO SCH ×2 (10:05→20:40)
[2018-01-23] MEDS: Sevelamer Carbonate 800 MG TAB PO SCH ×3 (10:05→17:46)
[2018-01-23] MEDS: Folic Acid/Vit B Comp W-C PO SCH (10:05)
[2018-01-23] MEDS: Ferrous Sulfate 325 MG TAB PO SCH (10:05)
[2018-01-23] MEDS: Clopidogrel Bisulfate 75 MG TAB PO SCH (10:05)
[2018-01-23] MEDS: Lisinopril 5 MG TAB PO SCH ×2 (10:06→20:41)
[2018-01-23] MEDS: Carvedilol 6.25 MG TAB PO SCH ×2 (10:06→17:46)
--- NOTE | 2018-01-23 11:12 | PRG ---
DATE OF SERVICE: 01/23/2018 RENAL MEDICINE SUBJECTIVE: Ms. Sullivan is a 62-year-old black female with ESRD and followed by Renal Service for her maintenance hemodialysis. She was initially admitted for rectal bleeding. She was observed and no active bleeding was noted. However, during this hospitalization, she developed cardiac arrhythmia - ventricular tachycardia/ventricular fibrillation and underwent defibrillation. She also underwent a cardiac catheterization with coronary stent placement. She has also received an AICD. This morning, she is feeling better. She is doing well. She denies any chest pain or shortness of breath. PHYSICAL EXAMINATION: VITAL SIGNS: Blood pressure is 141/74, heart rate 74, respiratory rate 16, temperature 99.2, pulse o x 94% room air. GENERAL: Awake, alert, supine, comfortable. SKIN: Adequate turgor. HEENT: She has slightly pale conjunctivae, anicteric sclerae. NECK: No neck mass, no carotid bruits, no JVD. CHEST: No deformities. LUNGS: Clear breath sounds. No wheezing, no crackles. HEART: Normal sinus rhythm. No murmurs, no gallops, no rubs. ABDOMEN: Globular, soft, nontender, no masses. EXTREMITIES: No edema, no deformities. MEDICATIONS: Medications of 01/23/2018 was reviewed. LABORATORY DATA: Laboratories of 01/23/2018; white count 3.9, hemoglobin 9.1. Sodium 137, potassium 3.8, chloride 102, carbon dioxide 28, BUN is 10, creatinine 3.33, calcium 8.0, magnesium 1.7. ASSESSMENT AND PLAN: 1. End-stage renal disease, stable. No indication for any emergent hemodialysis. Continue Thursday, Thursday and Thursday dialysis. The patient is euvolemic and potassium is within normal. 2. Anemia, continuing weekly Epogen. Recheck CBC if she is still here tomorrow. 3. Status post ventricular tachycardia/ventricular fibrillation - status post cardioversion and card iac catheterization as well as AICD placement. Doing better. Cardiology is following. Overall, agr ee with current management.
[2018-01-23] MEDS: Epoetin (ESRD) 20,000 UNITS/ML SC SCH (12:49)
--- NOTE | 2018-01-23 15:09 | PDOC.PN ---
- Subjective Encounter Start Date: 01/23/18 Encounter Start Time: 09:20 Pt seen for followup re: acute respiratory failure with hypoxia. Feels better. - Objective Resuscitation Status: Resuscitation Status FULL:Full Resuscitation Vital Signs & Weight: Vital Signs (12 hours) Temp Pulse Pulse Pulse Resp BP BP 01/23/18 12:45 70 18 01/23/18 12:29 84 82 132/75 01/23/18 10:06 74 141/74 H 01/23/18 10:05 123/68 01/23/18 07:40 99.2 F 70 18 01/23/18 07:16 01/23/18 07:05 99.2 F 74 16 01/23/18 03:35 98.6 F 72 16 BP BP Pulse Ox 01/23/18 12:45 111/58 L 100 01/23/18 12:29 131/75 01/23/18 10:06 01/23/18 10:05 01/23/18 07:40 94 L 01/23/18 07:16 93 L 01/23/18 07:05 123/68 94 L 01/23/18 03:35 108/60 96 Weight Admit Weight 134 lb Weight 144 lb 3.2 oz Most Recent Monitor Data Heart Rate from ECG 68 NIBP 170/82 NIBP BP-Mean 133 Respiration from ECG 20 SpO2 83 I&O: 01/22/18 01/23/18 01/24/18 06:59 06:59 06:59 Intake Total 1033 840 Output Total 0 Balance 1033 840 Result Diagrams: 01/23/18 04:56 01/23/18 04:56 Additional Labs: Accuchecks 01/23/18 01/23/18 01/22/18 11:03 05:54 20:51 POC Glucose 120 H 98 128 H Phys Exam - Physical Examination Constitutional: NAD HEENT: moist MMs Neck: supple Respiratory: clear to auscultation bilateral Cardiovascular: RRR Gastrointestinal: soft Neurological: moves all 4 limbs Psychiatric: normal affect Dx/Plan (1) Acute respiratory failure with hypoxia Code(s): J96.01 - ACUTE RESPIRATORY FAILURE WITH HYPOXIA Status: Acute Comment: Improving (2) Cardiac arrest Code(s): I46.9 - CARDIAC ARREST, CAUSE UNSPECIFIED Status: Acute Comment: cardiology following (3) Torsades de pointes Code(s): I47.2 - VENTRICULAR TACHYCARDIA Status: Acute Comment: had ICD placed yesterday Also had PCI with stent (4) COPD (chronic obstructive pulmonary disease) Status: Chronic Qualifiers: COPD type: unspecified COPD Qualified Code(s): J44.9 - Chronic obstructive pulmonary disease, unspecified (5) Chronic diastolic (congestive) heart failure Code(s): I50.32 - CHRONIC DIASTOLIC (CONGESTIVE) HEART FAILURE Status: Chronic Comment: stable (6) ESRD (end stage renal disease) on dialysis Code(s): N18.6 - END STAGE RENAL DISEASE; Z99.2 - DEPENDENCE ON RENAL DIALYSIS Status: Chronic Comment: Maintainanace dialysis per nephrology service (7) HTN (hypertension) Code(s): I10 - ESSENTIAL (PRIMARY) HYPERTENSION Status: Chronic Qualifiers: Hypertension type: essential hypertension Qualified Code(s): I10 - Essential (primary) hypertension Comment: controlled (8) PVD (peripheral vascular disease) Code(s): I73.9 - PERIPHERAL VASCULAR DISEASE, UNSPECIFIED Status: Chronic Comment: stable (9) Dyslipidemia Code(s): E78.5 - HYPERLIPIDEMIA, UNSPECIFIED Status: Chronic - Plan * . Discussed with nephrology service. Pt has a femoral trialysis catheter, will need AV fistulogram on Thursday so she can resume dialysis as outpatient. Review of Systems - Review of Systems Constitutional: negative: fever, chills, sweats, weakness, malaise Cardiovascular: negative: chest pain, palpitations, orthopnea, paroxysmal nocturnal dyspnea, edema, light headedness Gastrointestinal: negative: Nausea, Vomiting, Abdominal Pain, Diarrhea, Constipation, Melena, Hematochezia - Medications/Allergies Allergies/Adverse Reactions: Allergies Allergy/AdvReac Type Severity Reaction Status Date / Time iodine Allergy Severe Verified 12/22/17 13:14 Penicillins Allergy Severe Verified 12/22/17 13:14 Medications: Current Medications Acetaminophen (Tylenol) 650 mg PO Q4H PRN PRN Reason: Headache/Fever or Pain Last Admin: 01/23/18 07:40 Dose: 650 mg Albuterol Sulfate (Proventil Hfa) 2 puff INH Q4H PRN PRN Reason: SOB &/or Wheezing Aspirin (Aspirin Chewable) 81 mg PO DAILY [facility] Last Admin: 01/23/18 10:05 Dose: 81 mg Atorvastatin Calcium (Lipitor) 40 mg PO HS [facility] Last Admin: 01/22/18 20:41 Dose: 40 mg Carvedilol (Coreg) 6.25 mg PO BID-[facility] Last Admin: 01/23/18 10:06 Dose: 6.25 mg Clindamycin HCl (Cleocin) 300 mg PO TID [facility] Stop: 01/29/18 15:01 Last Admin: 01/23/18 10:04 Dose: 300 mg Clonidine (Catapres) 0.1 mg PO BID [facility] Last Admin: 01/23/18 10:05 Dose: 0.1 mg Clopidogrel Bisulfate (Plavix) 75 mg PO DAILY [facility] Last Admin: 01/23/18 10:05 Dose: 75 mg Dextrose/Water (Dextrose 50%) 25 gm SLOW IVP PRN PRN PRN Reason: Hypoglycemia Last Admin: 01/19/18 10:29 Dose: 25 gm Epoetin Johnson (Procrit) 10,000 units SC Q7D@1130 [facility] Last Admin: 01/23/18 12:49 Dose: 10,000 units Ferrous Sulfate (Feosol) 325 mg PO QAM-[facility] Last Admin: 01/23/18 10:05 Dose: 325 mg Folic Acid (Folvite) 1 mg PO DAILY [facility] Last Admin: 01/23/18 09:46 Dose: Not Given Glucagon (Glucagon) 1 mg IM PRN PRN PRN Reason: Hypoglycemia Dextrose/Water (D5w) 1,000 mls @ 0 mls/hr IV .Q0M PRN; As Directed PRN Reason: Hypoglycemia Dextrose/Sodium Chloride (D5 1/2 Ns) 1,000 mls @ 50 mls/hr IV .Q20H [facility] Last Admin: 01/22/18 20:53 Dose: 1,000 mls Lisinopril (Zestril) 5 mg PO BID [facility] Last Admin: 01/23/18 10:06 Dose: 5 mg Pantoprazole Sodium (Protonix) 40 mg PO DAILY [facility] Last Admin: 01/23/18 10:06 Dose: 40 mg Polyethylene Glycol (Miralax) 17 gm PO DAILYPRN PRN PRN Reason: Constipation Sevelamer Carbonate (Renvela) 800 mg PO TID-[facility] Last Admin: 01/23/18 12:49 Dose: 800 mg Sodium Chloride (Flush - Normal Saline) 10 ml IVF Q12HR [facility] Last Admin: 01/23/18 10:04 Dose: 10 ml Sodium Chloride (Flush - Normal Saline) 10 ml IVF PRN PRN PRN Reason: Saline Flush Vitamin B Complex/Vit C/Folic Acid (Nephro-Tanika Tablet) 1 tab PO DAILY [facility] Last Admin: 01/23/18 10:05 Dose: 1 tab
[2018-01-23] MEDS: Dextrose 5 %-0.45 % NaCl 1,000 ML IV SCH (15:47)
--- NOTE | 2018-01-23 18:05 | PRG ---
DATE OF SERVICE: 01/23/2018 SERVICE: Pulmonary Medicine. INTERVAL HISTORY: The patient is doing great from a respiratory standpoint. She denies any cough, f ace, chills, shortness of breath, dyspnea on exertion. She has been able to walk the hallways with out oxygen and without difficulties. There were no events overnight. OBJECTIVE: VITAL SIGNS: Afebrile, pulse 70, blood pressure 131/75, respirations 18, saturation 100% on room air . GENERAL: The patient is awake, alert, no apparent distress. LUNGS: Decent air entry with no prolonged expiratory phase, wheezing, rhonchi or crackles. HEART: Normal rate, regular. ABDOMEN: Soft, nontender, nondistended. Bowel sounds are positive. MUSCULOSKELETAL: No cyanosis or clubbing. There is no pitting in the bilateral lower extremities. NEUROLOGIC: Grossly nonfocal. LABORATORY DATA: WBC 3.9, hemoglobin 9.1, platelets 145,000. Creatinine 3.33, improved with dialysi s. Magnesium 1.7. Basic metabolic profile is otherwise unremarkable. ASSESSMENT: 1. End-stage renal disease. 2. Ventricular fibrillation arrest. 3. Chronic systolic heart failure. DISCUSSION AND PLAN: At this point, the patient has no further ongoing requirements for inpatient Pu lmonary Critical Care opinion. Because she had a sudden decompensation previously, however, we will continue to follow intermittently for the time being. From a purely respiratory standpoint, there is nothing that prevents her disposition. Please call with additional questions or concerns moving maggy huertas.
[2018-01-23] MEDS: Atorvastatin Calcium 40 MG TAB PO SCH (20:41)
[2018-01-24] MEDS: Acetaminophen 325 MG TAB PO PRN (02:15)
[2018-01-24] MEDS: Ferrous Sulfate 325 MG TAB PO SCH (08:15)
[2018-01-24] MEDS: cloNIDine 0.1 MG TAB PO SCH ×2 (08:15→21:23)
[2018-01-24] MEDS: Clopidogrel Bisulfate 75 MG TAB PO SCH (08:16)
[2018-01-24] MEDS: Carvedilol 6.25 MG TAB PO SCH ×2 (08:16→16:06)
[2018-01-24] MEDS: Folic Acid 1 MG TAB PO SCH (08:17)
[2018-01-24] MEDS: Clindamycin 150 MG CAP PO SCH ×3 (08:17→21:23)
[2018-01-24] MEDS: Lisinopril 5 MG TAB PO SCH ×2 (08:17→21:23)
[2018-01-24] MEDS: Folic Acid/Vit B Comp W-C PO SCH (08:18)
[2018-01-24] MEDS: Sevelamer Carbonate 800 MG TAB PO SCH ×3 (08:18→16:06)
[2018-01-24] MEDS: Dextrose 5 %-0.45 % NaCl 1,000 ML IV SCH (11:37)
--- NOTE | 2018-01-24 12:15 | PDOC.CTH ---
Cardiology Progress Note - Subjective No complaints. Resting comfortably. Was discharged yesterday, then d/c held due to keeping here for vein mapping and procedure tomorrow. - Objective Vital Signs Temp Pulse Pulse Pulse Resp BP BP 01/24/18 10:15 71 70 137/74 01/24/18 08:17 71 130/83 01/24/18 08:16 130/83 01/24/18 08:15 130/83 01/24/18 03:38 98.7 F 70 16 BP BP Pulse Ox 01/24/18 10:15 118/66 01/24/18 08:17 01/24/18 08:16 01/24/18 08:15 01/24/18 03:38 120/70 98 Admit Weight 134 lb Weight 144 lb 3.2 oz 01/23/18 01/24/18 01/25/18 06:59 06:59 06:59 Intake Total 840 2474 Output Total 50 Balance 840 2424 - Physical Examination General/Neuro: alert & oriented x3 Lungs: CTA Heart: RRR Abdomen: NT/ND - Labs Result Diagrams: 01/23/18 04:56 01/23/18 04:56 Troponin/CKMB CK-MB (CK-2) 1.1 ng/mL (0-6.6) 01/17/18 04:47 Troponin I 0.282 ng/mL (< 0.028) H 01/17/18 04:47 - Assessment/Plan 1. VT and torsades arrest 2. QT prolongation s/p ICD placement 01/22 3. ICMO, EF 20-25% 4. CAD s/p PCI RCA 01/16. 5. s/p respiratory failure 6. History of recurrent GIB 7. ESRD on HD Overall doing well. Stable cardiac status. Ok for discharge once cleared by renal team.
--- NOTE | 2018-01-24 12:53 | PRG ---
DATE OF SERVICE: 01/24/2018 SUBJECTIVE: Ms. Sullivan is a 62-year-old black female followed up by the Renal Service for a maintena nje hemodialysis. During this hospitalization, she clotted her AV graft/fistula. She has a temporar y femoral dialysis catheter. We will be scheduling here for AV fistulogram. Due to her iodine aller gy, she will get prednisone protocol as recommended by Radiology. She is feeling better. 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 She has undergone an AICD placement a s well as a cardiac catheterization with coronary stent placement. No complaint of chest pain or chelo rtness of breath. OBJECTIVE: VITAL SIGNS: Blood pressure is 130/83, heart rate 70, respiratory 16, temperature 98.7, and pulse ox 98%. GENERAL: Noted to be awake, alert, supine, comfortable, not in distress. SKIN: Adequate turgor. HEENT: She has slightly pale conjunctivae, anicteric sclerae. NECK: No neck mass, no carotid bruits, no JVD. CHEST: No deformities. LUNGS: Clear breath sounds, no wheezing, no crackles. HEART: Normal sinus rhythm. No murmur, no gallops, no rubs. ABDOMEN: Globular, soft, nontender. No masses. EXTREMITIES: No edema, no deformities. MEDICATIONS: 01/24/2018, reviewed. LABORATORY DATA: On 01/23/2018 - white count 3.9, hemoglobin 9.1. On 01/23/2018, sodium 137, potass ium 3.8, chloride 102, carbon dioxide 28, BUN 10, and creatinine 3.33. On 01/24/2018, glucose 110. ASSESSMENT AND PLAN: 1. Clotted AV graft/fistula - I have scheduled her for an AV fistulogram in a.m. We will follow pre dnisone protocol due to her allergies to IODINE. 2. End-stage renal disease, stable. There is no indication for any emergent hemodialysis today. 3. Anemia, continuing weekly Epogen and iron supplementation. 4. Status post cardiorespiratory arrest, much improved. 5. Status post cardiac catheterization and placement of AICD. We will check base met and CBC in a.m .
[2018-01-24] MEDS ORDERED: predniSONE 50 MG TAB PO SCH (20:15)
[2018-01-24] MEDS: Atorvastatin Calcium 40 MG TAB PO SCH (21:22)
--- NOTE | 2018-01-24 23:27 | PDOC.PN ---
- Subjective Encounter Start Date: 01/24/18 Encounter Start Time: 18:00 Patient seen and examined for Resp failure/V fib. No new complaints. No overnight events - Objective Resuscitation Status: Resuscitation Status FULL:Full Resuscitation MAR Reviewed: Yes Vital Signs & Weight: Vital Signs (12 hours) Temp Pulse Resp BP BP Pulse Ox 01/24/18 21:20 71 16 110/61 01/24/18 19:45 98.7 F 70 20 102/55 L 97 01/24/18 16:06 126/78 01/24/18 16:00 98.2 F 71 16 126/78 95 01/24/18 12:00 98.6 F 70 16 119/69 94 L Weight Admit Weight 134 lb Weight 144 lb 3.2 oz Most Recent Monitor Data Heart Rate from ECG 68 NIBP 170/82 NIBP BP-Mean 133 Respiration from ECG 20 SpO2 83 I&O: 01/23/18 01/24/18 01/25/18 06:59 06:59 06:59 Intake Total 840 2474 1800 Output Total 50 30 Balance 840 2424 1770 Result Diagrams: 01/25/18 04:20 01/25/18 04:20 Additional Labs: Accuchecks 01/24/18 01/24/18 01/24/18 20:42 16:43 10:57 POC Glucose 125 H 128 H 103 01/24/18 05:50 POC Glucose 110 EKG Reviewed by me: Yes (Tele SR) Phys Exam - Physical Examination Constitutional: NAD Respiratory: no wheezing, no rhonchi Cardiovascular: RRR, no rub Gastrointestinal: soft, non-tender, positive bowel sounds Musculoskeletal: no edema Neurological: moves all 4 limbs Dx/Plan (1) Acute respiratory failure with hypoxia Code(s): J96.01 - ACUTE RESPIRATORY FAILURE WITH HYPOXIA Status: Acute Comment: Improving (2) CAD (coronary artery disease) Code(s): I25.10 - ATHSCL HEART DISEASE OF [place] CORONARY ARTERY W/O ANG PCTRS Status: Acute Comment: s/p Stent placement (3) Torsades de pointes Code(s): I47.2 - VENTRICULAR TACHYCARDIA Status: Acute Comment: s/p ACID (4) ESRD (end stage renal disease) on dialysis Code(s): N18.6 - END STAGE RENAL DISEASE; Z99.2 - DEPENDENCE ON RENAL DIALYSIS Status: Chronic Comment: Maintainanace dialysis per nephrology service (5) HTN (hypertension) Code(s): I10 - ESSENTIAL (PRIMARY) HYPERTENSION Status: Chronic Qualifiers: Hypertension type: essential hypertension Qualified Code(s): I10 - Essential (primary) hypertension Comment: controlled (6) PVD (peripheral vascular disease) Code(s): I73.9 - PERIPHERAL VASCULAR DISEASE, UNSPECIFIED Status: Chronic Comment: stable - Plan out of bed/ambulate DC IVF -: AV fistulogram in AM, DC IVF -: s/p AICD -: Cont ASA, BB, ACEI or Statin -: AM labs Review of Systems - Review of Systems Respiratory: negative: Cough, Dry, Shortness of Breath, Hemoptysis, SOB with Excertion, Pleuritic Pain, Sputum, Wheezing Cardiovascular: negative: chest pain, palpitations, orthopnea, paroxysmal nocturnal dyspnea, edema, light headedness, other - Medications/Allergies Allergies/Adverse Reactions: Allergies Allergy/AdvReac Type Severity Reaction Status Date / Time iodine Allergy Severe Verified 12/22/17 13:14 Penicillins Allergy Severe Verified 12/22/17 13:14 Medications: Current Medications Acetaminophen (Tylenol) 650 mg PO Q4H PRN PRN Reason: Headache/Fever or Pain Last Admin: 01/24/18 02:15 Dose: 650 mg Albuterol Sulfate (Proventil Hfa) 2 puff INH Q4H PRN PRN Reason: SOB &/or Wheezing Aspirin (Aspirin Chewable) 81 mg PO DAILY [facility] Last Admin: 01/24/18 08:15 Dose: 81 mg Atorvastatin Calcium (Lipitor) 40 mg PO HS [facility] Last Admin: 01/24/18 21:22 Dose: 40 mg Carvedilol (Coreg) 6.25 mg PO BID-WM [facility] Last Admin: 01/24/18 16:06 Dose: 6.25 mg Clindamycin HCl (Cleocin) 300 mg PO TID [facility] Stop: 01/29/18 15:01 Last Admin: 01/24/18 21:23 Dose: 300 mg Clonidine (Catapres) 0.1 mg PO BID [facility] Last Admin: 01/24/18 21:23 Dose: 0.1 mg Clopidogrel Bisulfate (Plavix) 75 mg PO DAILY [facility] Last Admin: 01/24/18 08:16 Dose: 75 mg Dextrose/Water (Dextrose 50%) 25 gm SLOW IVP PRN PRN PRN Reason: Hypoglycemia Last Admin: 01/19/18 10:29 Dose: 25 gm Diphenhydramine HCl (Benadryl) 50 mg PO 0800 [facility] Stop: 01/25/18 09:00 Epoetin Johnson (Procrit) 10,000 units SC Q7D@1130 [facility] Last Admin: 01/23/18 12:49 Dose: 10,000 units Ferrous Sulfate (Feosol) 325 mg PO QAM-[facility] Last Admin: 01/24/18 08:15 Dose: 325 mg Folic Acid (Folvite) 1 mg PO DAILY [facility] Last Admin: 01/24/18 08:17 Dose: 1 mg Glucagon (Glucagon) 1 mg IM PRN PRN PRN Reason: Hypoglycemia Dextrose/Water (D5w) 1,000 mls @ 0 mls/hr IV .Q0M PRN; As Directed PRN Reason: Hypoglycemia Dextrose/Sodium Chloride (D5 1/2 Ns) 1,000 mls @ 50 mls/hr IV .Q20H [facility] Last Admin: 01/24/18 11:37 Dose: 1,000 mls Lisinopril (Zestril) 5 mg PO BID [facility] Last Admin: 01/24/18 21:23 Dose: 5 mg Pantoprazole Sodium (Protonix) 40 mg PO DAILY [facility] Last Admin: 01/24/18 08:15 Dose: 40 mg Polyethylene Glycol (Miralax) 17 gm PO DAILYPRN PRN PRN Reason: Constipation Prednisone (Prednisone) 50 mg PO 0200 [facility] Stop: 01/25/18 03:00 Prednisone (Prednisone) 50 mg PO 0800 [facility] Stop: 01/25/18 09:00 Sevelamer Carbonate (Renvela) 800 mg PO TID-[facility] Last Admin: 01/24/18 16:06 Dose: 800 mg Sodium Chloride (Flush - Normal Saline) 10 ml IVF Q12HR [facility] Last Admin: 01/24/18 21:26 Dose: 10 ml Sodium Chloride (Flush - Normal Saline) 10 ml IVF PRN PRN PRN Reason: Saline Flush Last Admin: 01/24/18 21:26 Dose: 10 ml Vitamin B Complex/Vit C/Folic Acid (Nephro-Tanika Tablet) 1 tab PO DAILY [facility] Last Admin: 01/24/18 08:18 Dose: 1 tab
[2018-01-25] MEDS ORDERED: predniSONE 50 MG TAB PO SCH ×2 (02:00→08:00)
[2018-01-25 05:14] LABS: #Lymphocytes 0.3 thou/uL (1.20-3.40); #Monocytes 0.1 thou/uL (0.11-0.59); %Basophils 0.2 % (0.0-1.0); %Eosinophils 0.9 % (0.0-10.0); %Lymphocytes 9.9 % (21.0-51.0); %Monocytes 2.1 % (0.0-10.0); %Neutrophils 86.9 % (42.0-75.0); Hemoglobin 9.1 g/dL (12.0-16.0); Mean Corpuscular HGB CONC 32.4 g/dL (32.0-36.0); Mean Corpuscular Hemoglobin 33.1 pg (27.0-31.0); Mean Platelet Volume 8.3 fL (7.4-10.4); Platelet Count 185 thou/uL (130-400); RBC Distribution Width 17.1 % (11.5-14.5); Red Blood Cell (RBC) Count 2.76 mill/uL (4.20-5.40); White Blood Cell (WBC) Count 3.4 thou/uL (4.8-10.8)
[2018-01-25 05:26] LABS: Anion Gap 15 mmol/L (10-20); BUN (Urea Nitrogen) 21 mg/dL (9.8-20.1); Calc. Creatinine Clearance 11 mL/min (70-130); Calcium 8.6 mg/dL (7.8-10.44); Carbon Dioxide 21 mmol/L (23-31); Chloride 104 mmol/L (98-107); Estimated GFR-MDRD 9; Glucose 140 mg/dL (80-115); Magnesium 1.9 mg/dL (1.6-2.6); Potassium 5.3 mmol/L (3.5-5.1); Sodium 135 mmol/L (136-145)
[2018-01-25] MEDS ORDERED: diphenhydrAMINE 50 MG CAP PO SCH (08:00)
[2018-01-25] MEDS: Ferrous Sulfate 325 MG TAB PO SCH (08:09)
[2018-01-25] MEDS: Sevelamer Carbonate 800 MG TAB PO SCH ×3 (08:09→15:58)
[2018-01-25 08:39] VITALS: TEMP 98.1
[2018-01-25] MEDS: cloNIDine 0.1 MG TAB PO SCH (08:39)
[2018-01-25] MEDS: Carvedilol 6.25 MG TAB PO SCH ×3 (08:39→15:58)
--- NOTE | 2018-01-25 09:01 | PRG ---
DATE OF SERVICE: 01/25/2018 SUBJECTIVE: Ms. Sullivan is a 62-year-old black female with ESRD. She has no new complaints today. S he denies any chest pain, shortness of breath. She has been stable for the last few days. However, the AV graft/fistula is clotted. She is due for an AV fistulogram. She has been premedicated with p rednisone. She has no other complaints today. PHYSICAL EXAMINATION: VITAL SIGNS: Blood pressure is noted at 129/76, respiratory rate 20, temperature 98.8, heart rate 75 , pulse ox 93%. GENERAL: Awake, alert, comfortable, not in distress. SKIN: Adequate turgor. HEENT: She has slightly pale conjunctivae, anicteric sclerae. NECK: No neck mass, no carotid bruits, no JVD. CHEST: No deformities. LUNGS: Clear breath sounds, no wheezing, no crackles. HEART: Normal sinus rhythm. No murmur, no gallops, no rubs. ABDOMEN: Globular, soft, nontender. No masses. EXTREMITIES: No edema, no deformities. MEDICATIONS: 01/25/2018 - Reviewed. LABORATORIES: 01/25/2018 - White count 3.4, hemoglobin 9.1, hematocrit 28.2. Sodium 135, potassium 5.3, chloride 104, carbon dioxide 21, BUN 21, creatinine 5.75, calcium is 8.6, magnesium 1.9. ASSESSMENT AND PLAN: 1. Clotted AV graft/fistula - for AV fistulogram. We will get in touch with Radiology to get the re commended premedication - prednisone for her IODINE allergy. 2. End-stage renal disease. We will continue current maintenance hemodialysis. We will schedule fo r dialysis later today after the AV fistulogram. 3. Status post cardiorespiratory arrest, stable, doing well status post cardiac catheterization with coronary stent placement as well as placement of AICD. Recheck base met and CBC in a.m.
[2018-01-25] MEDS ORDERED: Activase 2 MG VIAL CATH ONE (09:15)
[2018-01-25] MEDS ORDERED: Heparin 10,000 UNITS/ 10 ML VIAL ONE (10:00)
--- NOTE | 2018-01-25 12:13 | PDOC.CTH ---
<Elisabeth Vidal - Last Filed: 01/25/18 12:11> Cardiology Progress Note - Subjective EP progress note: Patient seen and examined while in HD today. Plan for DC later today. Feeling well. Minimal tenderness at ICD implant site. Otherwise, no cardiac concerns or complaints. - Objective Vital Signs Temp Pulse Resp BP BP Pulse Ox 01/25/18 08:39 163/81 H 01/25/18 08:35 98.1 F 71 18 163/81 H 94 L 01/25/18 03:42 98.8 F 75 20 129/76 93 L Admit Weight 134 lb Weight 144 lb 13.499 oz 01/24/18 01/25/18 01/26/18 06:59 06:59 06:59 Intake Total 2474 3000 Output Total 50 30 Balance 2424 2970 - Physical Examination General/Neuro: alert & oriented x3, NAD Neck: carotid US brisk, no JVD present Lungs: unlabored respirations Heart: PMI normal, RRR Abdomen: no HSM, NT/ND - Telemetry Telemetry Rhythm: NSR - Labs Result Diagrams: 01/25/18 04:20 01/25/18 04:20 Troponin/CKMB CK-MB (CK-2) 1.1 ng/mL (0-6.6) 01/17/18 04:47 Troponin I 0.282 ng/mL (< 0.028) H 01/17/18 04:47 - Assessment/Plan 1. Sustained, shock terminated VT/TDP arrest 2. QT prolongation- recent TDP. 3. New ICM, EF 20-25% with stenting of RCA on 01/16. 4. Respiratory failure post arrest-resolved 5. Recurrent GIB- mild anemia 6. ESRD on HD ICD placed last week. Site stable without sign of complication. Continue post implant clindamycin 300mg TID x 7 days. Site check with [facility] clinic in 7-10 days , our office will contact her for appointment. <Dimitri Martinez - Last Filed: 01/25/18 15:38> Cardiology Progress Note - Objective Vital Signs Temp Pulse Resp BP BP Pulse Ox 01/25/18 08:39 163/81 H 01/25/18 08:35 98.1 F 71 18 163/81 H 94 L 01/25/18 03:42 98.8 F 75 20 129/76 93 L Admit Weight 134 lb 3 oz Weight 144 lb 13.499 oz 01/24/18 01/25/18 01/26/18 06:59 06:59 06:59 Intake Total 2474 3000 Output Total 50 30 Balance 2424 2970 - Labs Result Diagrams: 01/25/18 04:20 01/25/18 04:20 Troponin/CKMB CK-MB (CK-2) 1.1 ng/mL (0-6.6) 01/17/18 04:47 Troponin I 0.282 ng/mL (< 0.028) H 01/17/18 04:47 Attending Addendum - Attending Addendum Date/Time: 01/25/18 2332 I personally evaluated the patient and discussed the management with Ms Cedilloyouchristiano. I agree with the History, Examination, Assessment and Plan documented above with any addition or exceptions noted below.
--- NOTE | 2018-01-25 12:26 | SPC ---
LEFT UPPER EXTREMITY DIALYSIS GRAFT FISTULOGRAM PERCUTANEOUS BALLOON ANGIOPLASTY VENOUS OUTFLOW AND GRAFT PERCUTANEOUS BALLOON ANGIOPLASTY ARTERIAL INFLOW THROMBOLYSIS LEFT UPPER EXTREMITY DIALYSIS GRAFT TWO VASCULAR ACCESSES WERE OBTAINED FOR THIS PROCEDURE: HISTORY: Renal failure. Clotted left upper extremity dialysis graft. FINDINGS: After explaining the procedure and answering all questions, the left upper extremity was prepped and draped in the usual sterile fashion. Sterile technique, buffered local anesthesia, and a 22-gauge ne edle were used to gain access to the arterial limb of the left upper extremity dialysis graft, direct ed towards the venous outflow. A short 6 Barb[place] sheath was placed, and serial imaging was performed. The intrathoracic venous outflow is patent. Extensive stents are present throughout the dialysis g raft and venous outflow, partially obscuring detail and limiting access sites. At the brachial vein proximal humeral level, clot is present within the vein, with no flow seen more distally. This is just proximal to the most proximal of the stents. A second vascular access was acquired near the apex of the graft, directed towards the arterial inflo w. An access farther along the venous outflow was not possible due to the extensive stents that have been placed in the past. A short 6 Barb[place] sheath was placed, and imaging was performed, showing the arterial inflow to be clotted. There were also areas of narrowing along the central portion of the graft near the arterial anastomosis. A 5 [place] Kelly balloon was then carefully placed at the arterial inflow of the graft and left inf lated to achieve stasis during thrombolysis. A total volume of 10 cc containing 4 mg recumbent at TPA and 2000 units Heparin were then laced throu ghout the graft for thrombolysis. A 6 mm x 4 cm mustang balloon was then placed into through the sergei ous outflow, achieving full balloon profile in the area of narrowing and clot. Balloon was inflated throughout the length of the graft, macerating the clot. Balloon was then placed at the arterial inflow, revealing multiple areas of stenoses to full balloon profile. The Kelly balloon was removed. Good flow was restored to the graft. Repeat imaging showed good flow throughout the graft without residual clot. Sheaths were removed. The patient tolerated the procedure well and was transferred to dialysis in go od condition. IMPRESSION: Successful declot and balloon angioplasty left upper extremity dialysis graft. POS: [facility]
[2018-01-25] MEDS ORDERED: Iopamidol 300 61% 100 ML VIAL FS ONE (13:01)
[2018-01-25] MEDS: Folic Acid 1 MG TAB PO SCH (13:26)
[2018-01-25] MEDS: Folic Acid/Vit B Comp W-C PO SCH (13:26)
[2018-01-25] MEDS: Clindamycin 150 MG CAP PO SCH ×2 (13:27→15:53)
[2018-01-25 13:52] VITALS: BMI 27.3
--- NOTE | 2018-01-25 15:39 | PRG ---
DATE OF SERVICE: 01/25/2018 SUBJECTIVE: Ms. Sullivan did well today. She has undergone defibrillator implantation. PHYSICAL EXAMINATION: VITAL SIGNS: Her blood pressure was 163/81. She is afebrile, heart rate 71, oximetry is 94% on room air. GENERAL: She is in no distress. LUNGS: Otherwise unchanged. HEART: Otherwise unchanged. ABDOMEN: Otherwise unchanged. LABORATORY DATA: White count is 3.4, hemoglobin 9.1, which is stable, platelets 185. Electrolytes a re stable. Her potassium was 5.3 this morning. IMPRESSION: Status post cardiac arrest for defibrillator today, clinically doing well. PLAN: We will continue to follow. She is stable from a pulmonary standpoint.
[2018-01-25] MEDS: Lisinopril 5 MG TAB PO SCH (15:52)
[2018-01-25] MEDS: Clopidogrel Bisulfate 75 MG TAB PO SCH (15:53)
[2018-01-25 17:41] VITALS: BP 117/79
[2018-01-25] MEDS ORDERED: Heparin 1,000 UNITS/ML VIAL ONE (17:42)
--- NOTE | 2018-01-26 11:37 | DIS ---
DATE OF DISCHARGE: 01/25/2018 DISCHARGE DISPOSITION: Home. FOLLOWUP: 1. Follow up with primary care physician, Dr. Roman in 1 week. 2. Follow up with Cardiology, Dr. Pfeiffer. 3. Electrophysiology, Dr. Martinez as scheduled. ALLERGIES: Patient is allergic to IODINE and PENICILLIN. DIAGNOSTIC TESTS: 1. On 01/17/2018, the patient underwent cardiac catheterization with successful bare-metal stent hernan cement in the mid RCA. Circumflex had 20% first obtuse marginal stenosis, which was heavily calcifie d. LAD had 40% mid stenosis. There was 70% stenosis in the first diagonal and 40% stenosis in the s econd diagonal. Left main was normal. 2. Echocardiogram showed left ventricular ejection fraction of 20%-25% with moderate mitral regurgit ation and moderate to severe tricuspid regurgitation. 3. On 01/22/2018, the patient underwent dual-chamber ICD implant. 4. On 01/16/2018, the patient underwent placement of the right femoral vein Trialysis catheter. 5. On 01/17/2018, the patient underwent right internal jugular central line placement. BRIEF HOSPITAL COURSE: The patient is a 62-year-old female with end-stage renal disease, on hemodial ysis; coronary artery disease; hypertension, who presented to the hospital with rectal bleeding. Ple ase refer to the history and physical for further details. The patient was admitted to the hospital with a diagnosis of hypertensive urgency with rectal bleedin g and volume overload. The patient was seen by Gastroenterology, Dr. Benavides. Per Dr. Benavides, the patien t probably had some hemorrhoidal bleeding. Her diet was advanced. Her H&H remained stable. On admission, the patient was also found to have volume overload, requiring hemodialysis. Around 11:12 p.m. on 01/16/2018, diallo khan was called while she was in the dialysis unit. She was fo und to have respiratory distress along with some brief apnea, requiring CPR. After about 30 seconds of CPR, she was found to have ventricular fibrillation requiring cardioversion. The patient was also intubated and placed on mechanical ventilation. She was monitored in the Intensive Care Unit. Late r in the ICU, diallo khan was called again due to cardiac rhythm changing to torsades. The patient was seen by Cardiology, Dr. Pfeiffer, on the day of admission. Next day, she underwent cardiac catheter ization with bare-metal stent placement as discussed above. She was then transferred to the regular floor. She was seen by Electrophysiology and AICD has been placed. An echocardiogram was done as justin kaiserussed above. The patient was also had problems with dialysis access site requiring Trialysis catheter. She underw ent fistulogram on the day of discharge. The Trialysis catheter has been removed. Central line will be removed as well. She appears stable for discharge and has been cleared by consultants. FINAL DIAGNOSES: 1. Gastrointestinal bleeding on admission, suspected hemorrhoidal resolved. 2. Status post code blue secondary to ventricular arrhythmia (ventricular fibrillation/torsades), re solved. 3. Acute hypoxic respiratory failure, requiring mechanical ventilation, resolved. 4. Coronary artery disease, status post bare-metal stent placement as discussed above. 5. End-stage renal disease, on hemodialysis. 6. Dialysis access problems. 7. Hypertensive urgency. 8. Peripheral vascular disease. 9. Chronic systolic heart failure, ejection fraction 20%-25% secondary to ischemic cardiomyopathy th at found on this admission. 10. Prolonged QT. The patient was transiently placed on amiodarone this hospitalization that has be en discontinued. 12. Anemia of renal disease. 13. Mild intermittent asthma. 14. Hyperkalemia. I repeat base met after 2 days is recommended. Primary care physician advised to follow. 15. Hyponatremia. 16. Metabolic acidosis. 17. Mild protein calorie malnutrition. 18. Secondary hyperparathyroidism. 19. Indeterminate troponins probably secondary to demand ischemia. 20. Elevated BNP probably secondary to renal failure. PLAN: 1. Plan of care was discussed with the patient in detail. She stated understanding. 2. The patient will continue clindamycin for antibiotic prophylaxis. Total time coordinating the discharge of this patient was 39 minutes.
--- NOTE | 2018-01-27 10:24 | PQF ---
[employer] Crystal Reports Winform ViewerMARCY VEGA MALIK MD [id number] [id number] CLINICAL DOCUMENTATION CLARIFICATION FORM: POST DISCHARGE Addendum to original discharge summary date: ____ Late entry note date: __ Please exercise your independent, professional judgment in responding to the clarification form. Clinical indicators are provided on the bottom of this form for your review. Due to conflicting documentation. Please clarify the type of chronic CHF and the Acuity. Thank you Please check appropriate box(s): HEART FAILURE: A. TYPE: [ x] Systolic / HFrEF [ ] Diastolic / HFpEF [ ] Combined Systolic / Diastolic B. ACUITY [ ] Acute [ ] Acute on Chronic [ x ] Chronic [ ] Other diagnosis [ ] Unable to determine In addition, please specify: Present on Admission (POA): [ x] Yes [ ] No [ ] Unable to determine For continuity of documentation, please document condition throughout progress notes and discharge summary. Thank You. CLINICAL INDICATORS - SIGNS / SYMPTOMS / LABS Ejection Fraction = % Dyspnea, Hypoxia Peripheral edema Elevated BNP JVD Orthopnea / SOB / dyspnea Pleural effusion / pulmonary edema CXR results Arrhythmia--tachycardia RISKS: History of CAD/ischemic heart disease CKD Hypertension [employer] Crystal Reports Winform ViewerTREATMENTS: Administration of TAVIA / ARB / BB Cardiac monitoring / telemetry IV diuretics Oxygen AICD (This form is maintained as a part of the permanent medical record) 2014 [employer]. All Rights Reserved Lina [email or web address] [phone] MTDD
== END 2018-01-25 19:35 | disposition home or self-care (01) | DRG 226 ==
LOC: ERS 21:19 → 2NO 01-16 02:18 → IMCU/EMU 01-16 03:16 → CCU 01-16 13:59 → 2NO 01-21 22:48
PROVIDERS: ADMIT Internal Medicine Infectious Disease; ATTEND Internal Medicine Infectious Disease
PROC: 5A1D70Z Performance of Urinary Filtration, Intermittent, Less than 6 Hours Per Day (ICD-10-PCS; principal; 2018-01-16)
PROC: 5A1955Z Respiratory Ventilation, Greater than 96 Consecutive Hours (ICD-10-PCS; 2018-01-16)
PROC: 0BH17EZ Insertion of Endotracheal Airway into Trachea, Via Natural or Artificial Opening (ICD-10-PCS; 2018-01-16)
PROC: 5A12012 Performance of Cardiac Output, Single, Manual (ICD-10-PCS; 2018-01-16)
PROC: 5A2204Z Restoration of Cardiac Rhythm, Single (ICD-10-PCS; 2018-01-16)
PROC: 02HV33Z Insertion of Infusion Device into Superior Vena Cava, Percutaneous Approach (ICD-10-PCS; 2018-01-17)
PROC: B548ZZA Ultrasonography of Superior Vena Cava, Guidance (ICD-10-PCS; 2018-01-17)
PROC: 02703DZ Dilation of Coronary Artery, One Artery with Intraluminal Device, Percutaneous Approach (ICD-10-PCS; 2018-01-17)
PROC: 5A1D70Z Performance of Urinary Filtration, Intermittent, Less than 6 Hours Per Day (ICD-10-PCS; 2018-01-18)
PROC: 5A1D70Z Performance of Urinary Filtration, Intermittent, Less than 6 Hours Per Day (ICD-10-PCS; 2018-01-20)
PROC: 0JH609Z Insertion of Cardiac Resynchronization Defibrillator Pulse Generator into Chest Subcutaneous Tissue and Fascia, Open Approach (ICD-10-PCS; 2018-01-22)
PROC: 02HK3KZ Insertion of Defibrillator Lead into Right Ventricle, Percutaneous Approach (ICD-10-PCS; 2018-01-22)
PROC: 02H63KZ Insertion of Defibrillator Lead into Right Atrium, Percutaneous Approach (ICD-10-PCS; 2018-01-22)
PROC: 5A1D70Z Performance of Urinary Filtration, Intermittent, Less than 6 Hours Per Day (ICD-10-PCS; 2018-01-22)
PROC: 06HY33Z Insertion of Infusion Device into Lower Vein, Percutaneous Approach (ICD-10-PCS; 2018-01-25)
PROC: 057A3ZZ Dilation of Left Brachial Vein, Percutaneous Approach (ICD-10-PCS; 2018-01-25)
PROC: 5A1D70Z Performance of Urinary Filtration, Intermittent, Less than 6 Hours Per Day (ICD-10-PCS; 2018-01-25)
PROC: 3E04317 Introduction of Other Thrombolytic into Central Vein, Percutaneous Approach (ICD-10-PCS; 2018-01-25)
PROC: B51W1ZZ Fluoroscopy of Dialysis Shunt/Fistula using Low Osmolar Contrast (ICD-10-PCS; 2018-01-25)
DX: I16.0 Hypertensive urgency (principal); N18.6 End stage renal disease; J96.01 Acute respiratory failure with hypoxia; I46.2 Cardiac arrest due to underlying cardiac condition; I49.01 Ventricular fibrillation; I47.2 Ventricular tachycardia; I50.22 Chronic systolic (congestive) heart failure; T82.855A Stenosis of coronary artery stent, initial encounter; D62 Acute posthemorrhagic anemia; N17.9 Acute kidney failure, unspecified; T82.868A Thrombosis due to vascular prosthetic devices, implants and grafts, initial encounter; R57.9 Shock, unspecified; E87.1 Hypo-osmolality and hyponatremia; E87.2 Acidosis; E44.1 Mild protein-calorie malnutrition; I24.8 Other forms of acute ischemic heart disease; N25.81 Secondary hyperparathyroidism of renal origin; I13.2 Hypertensive heart and chronic kidney disease with heart failure and with stage 5 chronic kidney disease, or end stage renal disease; K64.4 Residual hemorrhoidal skin tags; I25.10 Atherosclerotic heart disease of native coronary artery without angina pectoris; F17.210 Nicotine dependence, cigarettes, uncomplicated; I25.5 Ischemic cardiomyopathy; F10.21 Alcohol dependence, in remission; K70.30 Alcoholic cirrhosis of liver without ascites; D57.3 Sickle-cell trait; I73.9 Peripheral vascular disease, unspecified; F32.9 Major depressive disorder, single episode, unspecified; I45.81 Long QT syndrome; D63.1 Anemia in chronic kidney disease; E87.6 Hypokalemia; E87.70 Fluid overload, unspecified; Y82.8 Other medical devices associated with adverse incidents; Y92.230 Patient room in hospital as the place of occurrence of the external cause; E78.00 Pure hypercholesterolemia, unspecified; K57.30 Diverticulosis of large intestine without perforation or abscess without bleeding; J44.9 Chronic obstructive pulmonary disease, unspecified; E78.5 Hyperlipidemia, unspecified; I08.1 Rheumatic disorders of both mitral and tricuspid valves; D69.6 Thrombocytopenia, unspecified; E16.2 Hypoglycemia, unspecified; T49.0X5A Adverse effect of local antifungal, anti-infective and anti-inflammatory drugs, initial encounter; Z99.2 Dependence on renal dialysis; Z76.82 Awaiting organ transplant status; Z95.5 Presence of coronary angioplasty implant and graft; Z79.02 Long term (current) use of antithrombotics/antiplatelets; Z79.899 Other long term (current) drug therapy; J45.20 Mild intermittent asthma, uncomplicated; E87.5 Hyperkalemia
CPT/HCPCS: 33249; 36415; 36416; 36901; 36902; 36904; 71045; 75902; 80048; 80053; 82553; 82805; 83605; 83735; 83880; 84100; 84484; 85025; 85347; 85610; 85730; 86850; 86900; 86901; 90935; 92928; 92950; 93005; 93010; 93306; 93454; 93641; 93798; 94002; 94003; 96365; 96367; 96374; 96376; A4216; C1721; C1725; C1752; C1757; C1769; C1777; C1876; C1887; C1898; C9113; G0257; J0171; J0282; J0360; J0583; J0696; J1200; J1642; J1644; J1940; J2001; J2060; J2704; J2997; J3010; J3370; J3490; J7050; J7070; J7506; J7611; Q0162; Q4081

== ENCOUNTER 2018-02-04 09:31 | Observation (INO) | payer MEDICARE, OTHER ==
[2018-02-04 10:01] LABS: Hemoglobin 6.6 g/dL (12.0-16.0); Mean Corpuscular HGB CONC 31.8 g/dL (32.0-36.0); Mean Corpuscular Hemoglobin 33.8 pg (27.0-31.0); Mean Platelet Volume 7.3 fL (7.4-10.4); Platelet Count 217 thou/uL (130-400); RBC Distribution Width 18.7 % (11.5-14.5); Red Blood Cell (RBC) Count 1.94 mill/uL (4.20-5.40)
[2018-02-04 10:25] LABS: Band 6 % (5-11); Eosinophils 7 % (0-10); Hypochromia SLIGHT = 6-15 cells (100X) (0-5/hpf); Lymphocytes 30 % (21-51); MDiff Complete? YES; Monocytes 5 % (0-10); Neutrophil 52 % (42-75); PLT Morphology Comment Appears Adequate; Polychromasia SLIGHT = 2-3 cells (100X) (0-2/hpf)
[2018-02-04 10:30] LABS: ALT (SGPT) 9 U/L (8-55); AST (SGOT) 18 U/L (5-34); Albumin 3.5 g/dL (3.4-4.8); Alkaline Phosphatase 89 U/L (40-150); Anion Gap 14 mmol/L (10-20); BUN (Urea Nitrogen) 28 mg/dL (9.8-20.1); Bilirubin, Total 0.9 mg/dL (0.2-1.2); Calc. Creatinine Clearance 0 mL/min (70-130); Calcium 9.2 mg/dL (7.8-10.44); Carbon Dioxide 32 mmol/L (23-31); Chloride 95 mmol/L (98-107); Estimated GFR-MDRD 12; Globulin 3.4 g/dL (2.4-3.5); Glucose 136 mg/dL (80-115); Lipase 79 U/L (8-78); Magnesium 2.2 mg/dL (1.6-2.6); Potassium 3.9 mmol/L (3.5-5.1); Protein, Total 6.9 g/dL (6.0-8.3); Sodium 137 mmol/L (136-145)
[2018-02-04 10:33] LABS: INR-International Normal Ratio 1.3; PTT 29.7 SEC (22.9-36.1); Prothrombin Time 15.8 SEC (12.0-14.7)
[2018-02-04 10:49] LABS: Bilirubin Negative (Negative); Blood, Urine Negative (Negative); Clarity CLEAR (Clear); Glucose, Urine (Dipstick) Negative (Negative); Leukocyte Trace (Negative); Nitrite Negative (Negative); Protein, Urine (Dipstick) 300 mg/dL (Neg-Trace); Specific Gravity, Urine 1.013 (1.002-1.036); pH, Urine 8.5 (5.0-9.0)
[2018-02-04 10:52] LABS: Bacteria/HPF None Seen HPF (None Seen); Hyaline Casts/LPF 0-3 HYALINE CAST LPF (0-3 Hyaline); Pathc Cast-AUWi Flag 0.43 (0-2.49); Squamous Epithelial 0-3 HPF (0-3)
[2018-02-04 11:03] LABS: RBC/HPF None Seen HPF (0-3); Renal Epithelial None Seen HPF (0-3); Transitional Epithelial NONE SEEN HPF (0-3)
--- NOTE | 2018-02-04 11:43 | RAD ---
SINGLE VIEW CHEST: HISTORY: Cough and malaise. COMPARISON: 01/22/2018 FINDINGS: Single view of the chest shows an enlarged cardiomediastinal silhouette. A pacemaker is seen with it s leads in the right atrium and ventricle. This is unchanged in position compared to the prior exam. There is an opacity in the right lung base, which may represent atelectasis or an infiltrate. Sten ts are seen in the left arm. IMPRESSION: Right basilar atelectasis versus infiltrate. POS: [facility]
[2018-02-04 13:38] VITALS: BMI 24.5
[2018-02-04] MEDS ORDERED: Ondansetron HCl/PF 4 MG/2 ML Vial IVP PRN ×2 (13:52→15:22)
[2018-02-04] MEDS ORDERED: Ondansetron ODT 4 MG TAB SL PRN (13:52)
[2018-02-04] MEDS ORDERED: Vancomycin HCl 1 GM in Premix Bag 1 BAG IVPB SCH (14:00)
[2018-02-04] MEDS ORDERED: Acetaminophen 325 MG TAB PO PRN (15:22)
[2018-02-04] MEDS ORDERED: Ondansetron ODT 4 MG TAB PO PRN (15:22)
[2018-02-04] MEDS ORDERED: cloNIDine 0.1 MG TAB PO PRN (15:27)
[2018-02-04] MEDS ORDERED: Pantoprazole 40 MG VIAL IVP SCH (15:30)
--- NOTE | 2018-02-04 15:50 | HP ---
DATE OF ADMISSION: 02/04/2018 PRIMARY CARE PHYSICIAN: Dr. Roman. PRIMARY LEATHER STRIPPING MACHINE OPERATOR: Dr. Reyna. PRIMARY ASSEMBLER FINAL: Dr. Max Pfeiffer. CHIEF COMPLAINT: Abnormal labs. HISTORY OF PRESENT ILLNESS: Patient is a 62-year-old -[place]ag[place] female with chronic systolic heart failure, ejection fraction 20%-25%, end-stage renal disease on hemodialysis, recent coronary stent placement with AICD, presented to the emergency room with abnormal labs. She was found to have abnormal hemoglobin level. In the emergency room, her hemoglobin level was 6.6. Over the past week or so, the patient has shortness of breath mainly on mild to moderate exertion. She also had some cough productive of small amount of thick whitish phlegm. She had mild orthopnea; however, denies any paroxysmal nocturnal dyspnea. There was minimal feet swelling as well. No fever or chills reported. She has been having dark stool almost on a daily basis. She is also on iron tablets. She had an EGD in 12/2017 that showed AVMs. She is currently on aspirin and Plavix for recent coronary stent placement (01/17/2018) . She also had AICD placement on 01/22/2018 for ventricular fibrillation/ torsades. PAST MEDICAL HISTORY: 1. Chronic systolic heart failure, ejection fraction 20%-25% range. 2. History of recurrent gastrointestinal bleeding. 3. Coronary artery disease, status post bare metal stent placement, last month. 4. End-stage renal disease on hemodialysis. 5. Hypertension. 6. Peripheral vascular disease. 7. Recent ventricular fibrillation/torsades, requiring AICD placement. 8. Anemia of renal disease. 9. Secondary hyperparathyroidism. PAST SURGICAL HISTORY: 1. AICD placement. 2. Coronary stent placement. 3. Dialysis access. 4. Hemorrhoidectomy. 5. Cholecystectomy. 6. Bilateral carotid endarterectomy. ALLERGIES: The patient is allergic to PENICILLIN and IV DYE. CURRENT HOME MEDICATIONS: Patient was discharged on following medications last month, 1. Aspirin 81 mg daily. 2. Carvedilol 6.25 mg three times daily. 3. Clonidine as needed. 4. Plavix 75 mg daily. 5. Lisinopril 5 mg twice a day. 6. Ferrous sulfate 325 mg daily. SOCIAL HISTORY: Patient currently lives at home. She smokes up to half pack a day. Denies any drug use. FAMILY HISTORY: Negative for heart disease. Diabetes and high blood pressure runs in her family. REVIEW OF SYSTEMS: The following complete review of systems was negative, unless otherwise mentioned in the HPI or below: Constitutional: Weight loss or gain, ability to conduct usual activities. Skin: Rash, itching. Eyes: Double vision, pain. ENT/Mouth: Nose bleeding, neck stiffness, pain, tenderness. Cardiovascular: Palpitations, dyspnea on exertion, orthopnea. Respiratory: Shortness of breath, wheezing, cough, hemoptysis, fever or night sweats. Gastrointestinal: Poor appetite, abdominal pain, heartburn, nausea, vomiting, constipation, or diarrhea. Genitourinary: Urgency, frequency, dysuria, nocturia. Musculoskeletal: Pain, swelling. Neurologic/Psychiatric: Anxiety, depression. Allergy/Immunologic: Skin rash, bleeding tendency. Patient also denies any nausea, vomiting, hemoptysis or bright red blood in stool. PHYSICAL EXAMINATION: VITAL SIGNS: In the emergency room, temperature 98.4, respirations 20, pulse of 81, blood pressure 114/70 with O2 saturation 94% on room air. GENERAL: A 62-year-old female in mild respiratory distress, able to complete short sentences. HEENT: Head is atraumatic, normocephalic. Sclerae are anicteric. Moist mucous membranes. No oral lesion. Conjunctivae are pale. NECK: Supple, no JVD, no carotid bruit. LUNGS: Showed scattered rales at bases. No wheezing or rhonchi. HEART: S1, S2 present. Regular rate and rhythm. No rubs or gallops appreciated. ABDOMEN: Soft, nontender, bowel sounds present, no rebound or guarding. EXTREMITIES: Trace edema in bilateral lower extremities with 1+ edema over the feet bilaterally. SKIN: Warm and dry. LYMPH NODES: No palpable lymph nodes in the neck. PERIPHERAL VASCULAR: Radial pulses palpable bilaterally. MUSCULOSKELETAL: No joint swelling or tenderness. LABORATORY FINDINGS: Hemoglobin 6.6, hematocrit 20.6, INR 1.3. Sodium 137, potassium 3.9. Urinalysis was negative for bacteria. IMAGING: Chest x-ray by my review showed questionable infiltrate at the right base. EKG by my review showed normal sinus rhythm with nonspecific ST-T wave changes in the lateral leads. IMPRESSION: 1. Symptomatic anemia secondary to gastrointestinal bleeding from probably arteriovenous malformation. Please note that patient had an EGD in December of this year. 2. Acute gastrointestinal blood loss anemia. 3. Recent coronary stent placement on aspirin and Plavix. 4. Hypertension. 5. Ventricular arrhythmia, status post recent AICD. 6. Anemia of renal disease. 7. Tobacco dependence. 8. Chronic systolic heart failure, ejection fraction 20%-25%. 9. Peripheral vascular disease. 10. Abnormal chest x-ray ? Pneumonia - suspected Pneumococcal. PLAN: The patient will be monitored as a 23-hour observation in the telemetry unit. GI will be consulted. She is currently receiving 2 units of PRBC. She will undergo dialysis tomorrow per Nephrology. We will hold aspirin and Plavix for now. Continue selected home medications. We will also hold lisinopril for now due to recurrent coughing. She has been on losartan in the past. We will start her on IV Protonix. We will get chest x-ray PA and lateral, to rule out pneumonia. Add Doxycycline for now. Will add Levaquin if CXR PA/Lat shows Pneumonia. Patient is allergic to Penicillin. Plan of care was discussed with the patient in detail. She stated understanding. NISSA
[2018-02-04 15:52] LABS: Troponin I 0.087 ng/mL (< 0.028)
--- NOTE | 2018-02-04 16:11 | RAD ---
TWO VIEW CHEST: Comparison: 02-04-18 Indication: Cough and malacia with abnormal preceding single view chest radiograph. FINDINGS: Bibasilar densities are present. There is localization of opacity of the posterior inferior chest on the lateral view with blunting of the posterior costophrenic sulcus. Evidence to indicate fluid overl oad with enlargement of the cardiac silhouette and pulmonary vasculature. IMPRESSION: Posterior basilar density with probable associated pleural fluid. This suggests the possibility of a basilar pneumonia with associated mild pleural fluid. Additional right basilar linear density indicat es atelectasis. Recommend follow up to resolution. POS: [facility]
[2018-02-04] MEDS: Carvedilol 6.25 MG TAB PO SCH (16:12)
[2018-02-04] MEDS ORDERED: Epoetin (ESRD) 10,000 UNITS/ML VIAL SC SCH (17:00)
--- NOTE | 2018-02-04 17:38 | PRG ---
DATE OF SERVICE: 02/04/2018 SUBJECTIVE: Ms. Sullivan is a 62-year-old black female with ESRD and was admitted for symptomatic anem ia. The patient was complaining of generalized weakness during the dialysis session. Recheck of her hemoglobin showed a value of 6.6, hence the admission for further management. Of interest, this pat ient had a recent episode of GI bleed. She has undergone upper GI endoscopy at that time with cauter ization of the said lesion. During that last hospitalization, she developed recurrent Vfib/torsades requiring AICD placement. This afternoon, she received 1 unit packed RBC. She is feeling a little b vaishali. OBJECTIVE: VITAL SIGNS: Blood pressure is noted at 136/76, heart rate 85, respiratory rate 22, temperature 98.6 , pulse ox 99%. GENERAL: Noted to be awake, alert, comfortable, not in distress. SKIN: Adequate turgor. HEENT: She has pale conjunctivae, anicteric sclerae. NECK: No neck mass, no carotid bruits, no JVD. CHEST: No deformities. LUNGS: Clear breath sounds. HEART: Normal sinus rhythm. Grade 2/6 systolic murmur, no gallops or rubs. ABDOMEN: Globular, soft, nontender, no masses. EXTREMITIES: No edema, no deformities. MEDICATIONS: Medications of 02/04/2018 was reviewed. LABORATORY: Laboratories of 02/04/2018, white count 4, hemoglobin 6.6. Sodium 137, potassium 3.9, c hloride 95, carbon dioxide 32, BUN 28, creatinine 4.41, glucose 136, calcium 9.2, magnesium 2.2. ASSESSMENT AND PLAN: 1. Symptomatic anemia - consideration for 2 units packed RBC. She received already 1 unit. Continu e Epogen at 10,000 units subcutaneously every week. Reonsult GI. 2. End-stage renal disease, stable. We will continue current hemodialysis regimen Thursday, Thursday , and Thursday. Due to the recent episode of GI bleed, we are holding current heparin with this patien t. 3. Cardiomyopathy - status post v-tach- status post AICD placement, stable. Recheck base met, CBC in a.m.
[2018-02-04] MEDS: Atorvastatin Calcium 40 MG TAB PO SCH (20:47)
[2018-02-04] MEDS: Doxycycline 100 MG CAP PO SCH (20:47)
[2018-02-04] MEDS: Pantoprazole 40 MG VIAL IVP SCH (20:47)
--- NOTE | 2018-02-04 23:31 | CON ---
DATE OF CONSULTATION: 02/04/2018 REASON FOR CONSULTATION: Severe anemia. HISTORY: Ms. Sullivan is a 62-year-old female with severe coronary artery disease and left ventricular dysfunction with an EF of 20%-25% in addition to end-stage renal disease, on 4-uuhvd-v-week dialysis . The patient was last admitted to the hospital on 01/23/2018 with rectal bleeding that was determin ed to be outlet origin from hemorrhoids. During that admission, she sustained a cardiac arrest, whic h she was able to pull through. During that admission, she underwent bare metal stent placement on 0 01/17/2018 and dual-chamber ICD placement on 01/22/2018. Historically, she had EGD and colonoscopy in October of this year that showed duodenal AVM in addition to hemorrhoids, but otherwise normal colon e xam. The patient underwent an outpatient EGD by Dr. Knutson on 12/23/2017 that showed 4 gastric AVMs that were cauterized with argon plasma coagulation. During that procedure, the patient had hypoxic a rrest that required bag, but without need of intubation. She recovered from that. Currently, the patient reports having 4 to 5-day history of progressive weakness and shortness of randal ath. On hemodialysis yesterday, her blood count was checked and was noted to be markedly low with he moglobin of 6+ g/dL. Clinically, she has not noted any visible bleeding other than having dark black stools from chronic iron supplement. PAST MEDICAL HISTORY: 1. Hypertension. 2. End-stage renal disease, on dialysis. 3. Peripheral vascular disease with bilateral carotid endarterectomy. 4. Coronary artery disease with stent placed as above. 5. Gastric and small bowel arteriovenous malformations noted on EGD and colonoscopy this year back october. 6. Cirrhosis, at one point was on renal and liver transplant list. ALLERGIES: PENICILLIN and IV CONTRAST. SOCIAL HISTORY: The patient rarely consumes alcohol. She does smoke half a pack a day. FAMILY HISTORY: Negative for any known GI problem, liver disease, GI malignancy. MEDICATIONS AT HOME: Clonidine, Ventolin inhaler, Renvela, Protonix 40 mg every day, Zestril, folic acid, Plavix 75 mg every day, Coreg 6.25 mg b.i.d., aspirin 81 mg every day. REVIEW OF SYSTEMS: 10-point review of systems did not show any other pertinent positive or negative. PHYSICAL EXAMINATION: VITAL SIGNS: Temperature is 98.1, blood pressure 136/76, pulse of 77. GENERAL: She is alert, conversant, in no distress. HEENT: Normal pupils. Sclerae anicteric. Oropharynx is clear. NECK: Supple. CARDIOVASCULAR: Normal S1, S2. Regular rate and rhythm. CHEST: Breath sounds. No rales or rhonchi. ABDOMEN: Soft, nontender. Good bowel sounds. EXTREMITIES: No edema. LABORATORY DATA: WBC is 4, hemoglobin 6.6, hematocrit 20.6, platelet count of 217,000. Electrolytes within normal range. Creatinine 4.4, BUN of 28, bilirubin 0.9, AST is 18, ALT of 9, alkaline phosph atase 89, lipase of 79, BNP 11,760. ASSESSMENT: Acute on chronic anemia in the setting of known gastric and small bowel arteriovenous ma lformations. Most likely the patient has some degree of blood loss from enteric bleeding from arteri ovenous malformations being on Plavix and aspirin. Concurrently, the patient has had recent hospital ization with multiple blood draws and multiple cardiac interventions. RECOMMENDATIONS: 1. At this point, I would favor conservative management as the patient only has 10 more days left on Plavix for her recent bare metal coronary artery stent placement. Given her recent cardiac arrest 2 weeks ago and her hypoxic arrest during the EGD back in December, I would not recommend EGD at this point unless there is overt bleeding. I would recommend transfusion support and wait out for the next 10 days until she is able to get off the Plavix. 2. We will follow.
[2018-02-05 04:42] LABS: Anion Gap 14 mmol/L (10-20); BUN (Urea Nitrogen) 32 mg/dL (9.8-20.1); Calc. Creatinine Clearance 11 mL/min (70-130); Calcium 9.4 mg/dL (7.8-10.44); Carbon Dioxide 31 mmol/L (23-31); Chloride 94 mmol/L (98-107); Estimated GFR-MDRD 10; Glucose 117 mg/dL (80-115); Potassium 4.3 mmol/L (3.5-5.1); Sodium 135 mmol/L (136-145)
[2018-02-05 05:23] LABS: Band 14 % (5-11); Eosinophils 5 % (0-10); Hemoglobin 7.3 g/dL (12.0-16.0); Lymphocytes 9 % (21-51); MDiff Complete? YES; Mean Corpuscular HGB CONC 33.7 g/dL (32.0-36.0); Mean Platelet Volume 7.9 fL (7.4-10.4); Monocytes 11 % (0-10); Myelocyte 1 % (0-0); Neutrophil 60 % (42-75); Platelet Count 192 thou/uL (130-400); RBC Distribution Width 19.3 % (11.5-14.5); Red Blood Cell (RBC) Count 2.14 mill/uL (4.20-5.40); White Blood Cell (WBC) Count 5.3 thou/uL (4.8-10.8)
--- NOTE | 2018-02-05 09:19 | PRG ---
DATE OF SERVICE: 02/05/2018 SERVICE: Renal Medicine. SUBJECTIVE: Ms. Sullivan is a 62-year-old black female who was admitted for symptomatic anemia. Hemog lobin was less than 7. She received 1 unit of packed RBC yesterday. She is currently at the dialysi s. I am giving her another unit of packed RBC. Please note, she is complaining of shortness of carroll th. We are trying to max out fluid removal with her with dialysis. OBJECTIVE: VITAL SIGNS: Blood pressure 150/70, heart rate 81, respiratory rate 20, pulse ox 100% on 2 liters, t emperature 99.2. GENERAL: Awake, alert, in mild respiratory distress. SKIN: Adequate turgor. HEENT: Pale conjunctivae, anicteric sclerae. NECK: No neck mass, no carotid bruits, no JVD. CHEST: No deformities. LUNGS: Clear breath sounds, no wheezing, no crackles. HEART: Normal sinus rhythm. No murmur, no gallops or rubs. ABDOMEN: Globular, soft, nontender, no masses. EXTREMITIES: No edema, no deformities. MEDICATIONS: Of 02/05/2018 was reviewed. LABORATORY DATA: Of 02/05/2018, white count 5.3, hemoglobin 7.3, sodium 135, potassium 4.3, chloride 94, carbon dioxide 31, BUN 32, creatinine 5.22, calcium 9.4. BNP is 11,760. ASSESSMENT AND PLAN: 1. Shortness of breath - maxing out fluid removal. My plan is to probably do another dialytic inter vention in a.m. 2. Anemia - p.r.n. blood transfusion. We are giving 1 unit of packed RBC with dialysis. Continue w caryly Epogen with the patient. Currently, she is on Epogen 10,000 units subcutaneously every week. 3. Mild shortness of breath, multifactorial etiology. Maxing out fluid removal as previously jennifer pereira, we will do extra dialysis tomorrow. We will also start a Nitropaste /isosorbide mononitrate wit h this patient, 30 mg tab once a day. 4. End-stage renal disease, stable. Continue current Thursday, Thursday, Thursday dialysis. Extra leona lysis - 2 hours in a.m. for extra fluid removal.
[2018-02-05] MEDS: Doxycycline 100 MG CAP PO SCH ×2 (11:30→21:24)
[2018-02-05] MEDS ORDERED: Docusate 100 MG CAP PO SCH (11:30)
[2018-02-05] MEDS: Folic Acid/Vit B Comp W-C PO SCH (11:31)
[2018-02-05] MEDS: Folic Acid 1 MG TAB PO SCH (11:31)
[2018-02-05] MEDS: Carvedilol 6.25 MG TAB PO SCH ×2 (11:32→17:27)
[2018-02-05] MEDS: Pantoprazole 40 MG VIAL IVP SCH ×2 (11:35→21:23)
[2018-02-05] MEDS ORDERED: Simethicone Chewable 80 MG TAB PO PRN (12:54)
[2018-02-05] MEDS ORDERED: Polyethylene Glycol 3350 17 GM Packet PO PRN (12:54)
[2018-02-05] MEDS ORDERED: Clopidogrel Bisulfate 75 MG TAB PO SCH (13:00)
[2018-02-05] MEDS ORDERED: Aspirin 81 mg Enteric Coated Tablet PO SCH (13:00)
--- NOTE | 2018-02-05 16:59 | PDOC.PN ---
- Subjective Encounter Start Date: 02/05/18 Encounter Start Time: 09:30 Patient seen and examined for GI bleeding. No new complaints. No overnight events - Objective Resuscitation Status: Resuscitation Status FULL:Full Resuscitation MAR Reviewed: Yes Vital Signs & Weight: Vital Signs (12 hours) Temp Pulse Resp BP BP Pulse Ox 02/05/18 15:45 99.2 F 77 20 141/68 H 94 L 02/05/18 11:32 150/70 H 02/05/18 11:18 98.8 F 83 22 H 153/70 H 95 02/05/18 10:37 98.0 F 02/05/18 09:42 98 F 02/05/18 09:26 98.4 F 02/05/18 07:05 99.0 F 79 26 H 124/74 97 02/05/18 05:45 99.2 F 81 20 150/70 H 100 Weight Weight 130 lb Most Recent Monitor Data Heart Rate from ECG 82 NIBP 147/78 Respiration from ECG 24 I&O: 02/04/18 02/05/18 02/06/18 06:59 06:59 06:59 Intake Total 1230 590 Balance 1230 590 Result Diagrams: 02/05/18 04:16 02/05/18 04:16 EKG Reviewed by me: Yes (Tele SR) Phys Exam - Physical Examination Constitutional: NAD Respiratory: no wheezing, no rhonchi Cardiovascular: RRR, no rub Gastrointestinal: soft, non-tender, positive bowel sounds Musculoskeletal: no edema Neurological: moves all 4 limbs Dx/Plan - Plan DVT proph w/SCDs IMPRESSION: 1. Symptomatic anemia secondary to gastrointestinal bleeding from probably arteriovenous malformation. s/p PRBC 2. Acute gastrointestinal blood loss anemia. 3. HCA Pneumonia - suspected Pneumococcal. 4. Hypertension. 5. Ventricular arrhythmia, status post recent AICD. 6. Anemia of renal disease. 7. Tobacco dependence. 8. Chronic systolic heart failure, ejection fraction 20%-25%. 9. Peripheral vascular disease. 10. Recent coronary stent placement on aspirin and Plavix. PLAN: * Monitor HH * Extra dialysis in AM per Nephro * DC in AM after dialysis if stable * Cont current meds as below * Resume ASA/Plavix * Cont to monitor * Add Levaquin * Cont Doxycycline Review of Systems - Review of Systems Respiratory: negative: Cough, Dry, Shortness of Breath, Hemoptysis, SOB with Excertion, Pleuritic Pain, Sputum, Wheezing Cardiovascular: negative: chest pain, palpitations, orthopnea, paroxysmal nocturnal dyspnea, edema, light headedness, other - Medications/Allergies Allergies/Adverse Reactions: Allergies Allergy/AdvReac Type Severity Reaction Status Date / Time iodine Allergy Severe Verified 02/04/18 14:00 Penicillins Allergy Severe Verified 02/04/18 14:00 Medications: Current Medications Acetaminophen (Tylenol) 650 mg PO Q4H PRN PRN Reason: Headache/Fever or Pain Aspirin (Ecotrin) 81 mg PO DAILY [facility] Atorvastatin Calcium (Lipitor) 40 mg PO HS [facility] Last Admin: 02/04/18 20:47 Dose: 40 mg Carvedilol (Coreg) 6.25 mg PO BID[facility] Last Admin: 02/05/18 11:32 Dose: 6.25 mg Clonidine (Catapres) 0.1 mg PO Q4H PRN PRN Reason: SBP Greater Than 180 Clopidogrel Bisulfate (Plavix) 75 mg PO DAILY [facility] Docusate Sodium (Colace) 100 mg PO BID [facility] Doxycycline Hyclate (Vibramycin) 100 mg PO BID [facility] Last Admin: 02/05/18 11:30 Dose: 100 mg Epoetin Johnson (Procrit) 10,000 units SC Q7D [facility] Last Admin: 02/04/18 18:33 Dose: 10,000 units Folic Acid (Folvite) 0.5 mg PO DAILY [facility] Last Admin: 02/05/18 11:31 Dose: 0.5 mg Levofloxacin (Levaquin) 250 mg PO 0600 [facility] Ondansetron HCl (Zofran Odt) 4 mg PO Q6H PRN PRN Reason: Nausea/Vomiting Ondansetron HCl (Zofran) 4 mg IVP Q6H PRN PRN Reason: Nausea/Vomiting Pantoprazole Sodium (Protonix) 40 mg IVP Q12HR [facility] Last Admin: 02/05/18 11:35 Dose: 40 mg Polyethylene Glycol (Miralax) 17 gm PO BID PRN PRN Reason: Constipation Simethicone (Mylicon Chewable) 80 mg PO PCHS PRN PRN Reason: Gas Pain Last Admin: 02/05/18 13:30 Dose: 80 mg Vitamin B Complex/Vit C/Folic Acid (Nephro-Tanika Tablet) 1 tab PO DAILY [facility] Last Admin: 02/05/18 11:31 Dose: 1 tab
[2018-02-05] MEDS: Atorvastatin Calcium 40 MG TAB PO SCH (21:23)
[2018-02-05] MEDS: Docusate 100 MG CAP PO SCH (21:23)
--- NOTE | 2018-02-05 22:05 | PRG ---
DATE OF SERVICE: 02/05/2018 SUBJECTIVE: Ms. Sullivan received 2 units of blood since admission, one yesterday, one today. Her hem oglobin this morning was 7.3 after the first unit of transfusion. PHYSICAL EXAMINATION: VITAL SIGNS: Temperature is 99.2, pulse 77, blood pressure 150/70. LUNGS: Clear. HEART: Regular rate and rhythm without clicks or murmurs. ABDOMEN: Soft and nontender. EXTREMITIES: No clubbing, no cyanosis or edema. LABORATORY STUDIES: White count 5.3, platelet count is 192. Creatinine 5, BUN 32. Liver function t ests are normal. ASSESSMENT: Gastrointestinal bleeding, it is unclear if this was probably related to AVMs and GI tra ct, she has had some hemorrhoidal bleeding and had a hemorrhoidectomy on 10/12/2017. She has had 3 e ndoscopies recently with cautery of AVMs in the stomach and duodenum. Presently, she is admitted wit h hemoglobin of 6.3 down from baseline of 9 on 01/25/2018 when she left the hospital. She had no ove rt bleeding, but is on iron at home. I suspect she has had occult gastrointestinal blood loss relate d to her AVMs disease. Unfortunately, she has been placed back on Plavix as she had a cardiac arrest and required a stent. A bare metal stent was placed, knowing her history of bleeding. RECOMMENDATIONS: At this time, she seems stable. We will continue PPI therapy and monitor hemoglobi n and hematocrit. Dr. Holguin will follow up over the weekend.
[2018-02-06 04:56] VITALS: BP 140/69; TEMP 98.4
[2018-02-06 05:36] LABS: Hemoglobin 8.8 g/dL (12.0-16.0); Platelet Count 180 thou/uL (130-400)
--- NOTE | 2018-02-06 08:29 | DIS ---
DATE OF ADMISSION: 02/04/2018 DATE OF DISCHARGE: 02/06/2018 DISCHARGE DISPOSITION: Home. FOLLOWUP: 1. Follow up with primary care physician, Dr. Roman, next week. 2. Repeat hemoglobin after 3 days is recommended. Primary care physician is advised to follow. 3. Hemodialysis per Nephrology, Dr. Reyna. ALLERGIES: Patient is allergic to IODINE and PENICILLIN. DISCHARGE MEDICATIONS: Doxycycline 100 mg twice a day #16, Levaquin 250 mg every other day, #5. INPATIENT CONSULTANTS: Gastroenterology, Dr. Knutson; Nephrology, Dr. Reyna. BRIEF HOSPITAL COURSE: Patient is a 62-year-old female with recent AICD and coronary bare metal sten t placement, currently on aspirin and Plavix, presented to the hospital with shortness of breath as w ell as low hemoglobin during hemodialysis. Please refer to the history and physical dated 02/04/2018 for further details. The patient was admitted to the hospital with a diagnosis of symptomatic anemia secondary to gastroin testinal bleeding. She has history of arteriovenous malformations. She had EGD in December of this year. Gastrointestinal service did not recommend EGD at this point unless there is overt bleeding. She h as been restarted on aspirin and Plavix. She received 2 units of PRBC as well as two dialysis sessio ns. She will resume dialysis Thursday, Thursday, and Thursday. Patient also was found to have pneumonia and shown good improvement with doxycycline and Levaquin. Leslie weems note that the patient is allergic to PENICILLIN. She appears stable for discharge. FINAL DIAGNOSES: 1. Symptomatic anemia secondary to gastrointestinal bleeding, probably arteriovenous malformation, s tatus post 2 units PRBC this admission. 2. Acute gastrointestinal blood loss anemia. 3. Healthcare-associated pneumonia, suspected pneumococcal, improving. 4. Hypertension. 5. Ventricular arrhythmia in last admission, status post AICD. 6. Anemia of renal disease. 7. Tobacco dependence. 8. Chronic systolic heart failure, ejection fraction 20%-25%. 9. Peripheral vascular disease. 10. Recent bare metal coronary stent placement on aspirin and Plavix. 11. Repeat chest x-ray after 4 weeks is recommended. Primary care physician advised to follow.
[2018-02-06] MEDS ORDERED: Aspirin 81 mg Enteric Coated Tablet PO SCH (09:00)
[2018-02-06] MEDS ORDERED: Clopidogrel Bisulfate 75 MG TAB PO SCH (09:00)
--- NOTE | 2018-02-06 10:09 | PRG ---
DATE OF SERVICE: 02/06/2018 RENAL MEDICINE SUBJECTIVE: Ms. Sullivan is a 62-year-old black female admitted for symptomatic anemia. She has recei marcus several units of packed RBC. She is feeling better. Shortness of breath is much improved. She is receiving extra dialysis due to volume overload. We are attempting 2-3 liters of fluid removal. I am at the bedside supervising the dialysis. She seems to be tolerating this. PHYSICAL EXAMINATION: VITAL SIGNS: Blood pressure 140/69, heart rate 79, respiratory rate 20, temperature 98.4, pulse ox 9 6%. GENERAL: Noted to be awake, supine, comfortable, not in overt distress. SKIN: Adequate turgor. HEENT: Slightly pale conjunctivae, anicteric sclerae. NECK: No neck mass, no carotid bruits, no JVD. CHEST: No deformities. LUNGS: Decreased breath sounds. HEART: Normal sinus rhythm. No murmurs, no gallops, no rubs. ABDOMEN: Globular, soft, nontender, no masses. EXTREMITIES: No edema, no deformities. MEDICATIONS: Medications of 02/06/2018 was reviewed. LABORATORY DATA: Laboratories of 02/06/2018; hemoglobin 8.8. On 02/05/2018, potassium 4.3, BUN 32 a nd creatinine 5.22. ASSESSMENT AND PLAN: 1. End-stage renal disease/volume overload, extra hemodialysis today. We will do 2 hours of dialysi s. Fluid removal as tolerated. 2 Anemia - p.r.n. blood transfusion. Continue weekly Epogen. Patient received 1 unit packed RBC wi th dialysis yesterday. GI following. Eventually, the patient will be off Plavix and we should help with her ? of GI bleed. Agree with current management. Using no heparin with dialysis.
[2018-02-06] MEDS: Folic Acid 1 MG TAB PO SCH (10:37)
[2018-02-06] MEDS: Carvedilol 6.25 MG TAB PO SCH (10:37)
[2018-02-06] MEDS: Docusate 100 MG CAP PO SCH (10:37)
[2018-02-06] MEDS: Folic Acid/Vit B Comp W-C PO SCH (10:38)
[2018-02-06] MEDS: Pantoprazole 40 MG VIAL IVP SCH (10:38)
[2018-02-06] MEDS: Doxycycline 100 MG CAP PO SCH (10:38)
== END 2018-02-06 11:11 | disposition home or self-care (01) ==
LOC: ERS 09:31 → 2SW 13:01
PROVIDERS: ADMIT Internal Medicine; ATTEND Internal Medicine
DX: D62 Acute posthemorrhagic anemia (principal); I13.2 Hypertensive heart and chronic kidney disease with heart failure and with stage 5 chronic kidney disease, or end stage renal disease; I50.22 Chronic systolic (congestive) heart failure; N18.6 End stage renal disease; I73.9 Peripheral vascular disease, unspecified; D63.1 Anemia in chronic kidney disease; F17.200 Nicotine dependence, unspecified, uncomplicated; K74.60 Unspecified cirrhosis of liver; I25.10 Atherosclerotic heart disease of native coronary artery without angina pectoris; J18.9 Pneumonia, unspecified organism; Z95.5 Presence of coronary angioplasty implant and graft; Z88.0 Allergy status to penicillin; Z91.041 Radiographic dye allergy status; Z79.02 Long term (current) use of antithrombotics/antiplatelets; Z79.82 Long term (current) use of aspirin; Z79.899 Other long term (current) drug therapy; Z99.2 Dependence on renal dialysis
CPT/HCPCS: 36430 ×2; 51701; 71045; 71046; 80048; 80053; 83690; 83735; 83880; 84484; 85014; 85018; 85025 ×2; 85049; 85610; 85730; 86850; 86900; 86901; 86920; 87040; 93005; 94760; 96366; 96367; 96372; 96375 ×2; 96376 ×3; 97139 ×2; 99285; G0378; P9016 ×2; Q4081; 36415; 81003; 81015; 90935; 96374; C9113; G0257; J1956; J3370

== ENCOUNTER 2018-02-12 01:45 | Inpatient (IN) | payer MEDICARE, OTHER ==
[2018-02-12 02:37] LABS: #Basophils 0.1 thou/uL (0.0-0.2); #Eosinphils 0.1 thou/uL (0.0-0.7); #Lymphocytes 0.9 thou/uL (1.20-3.40); #Monocytes 0.7 thou/uL (0.11-0.59); #Neutrophils 4.8 thou/uL (1.40-6.50); %Eosinophils 1.3 % (0.0-10.0); %Monocytes 10.2 % (0.0-10.0); %Neutrophils 73.6 % (42.0-75.0); Hemoglobin 8.7 g/dL (12.0-16.0); Mean Corpuscular HGB CONC 33.8 g/dL (32.0-36.0); Mean Corpuscular Hemoglobin 34.4 pg (27.0-31.0); Mean Platelet Volume 8.1 fL (7.4-10.4); Platelet Count 255 thou/uL (130-400); RBC Distribution Width 18.8 % (11.5-14.5); Red Blood Cell (RBC) Count 2.52 mill/uL (4.20-5.40); White Blood Cell (WBC) Count 6.5 thou/uL (4.8-10.8)
[2018-02-12 03:01] LABS: CKMB 1.1 ng/mL (0-6.6)
[2018-02-12 03:52] LABS: ALT (SGPT) 9 U/L (8-55); AST (SGOT) 16 U/L (5-34); Albumin 3.5 g/dL (3.4-4.8); Alkaline Phosphatase 91 U/L (40-150); Anion Gap 16 mmol/L (10-20); BUN (Urea Nitrogen) 40 mg/dL (9.8-20.1); Bilirubin, Total 0.9 mg/dL (0.2-1.2); CK (CPK) 22 U/L (29-168); Calc. Creatinine Clearance 0 mL/min (70-130); Calcium 10.4 mg/dL (7.8-10.44); Carbon Dioxide 32 mmol/L (23-31); Chloride 95 mmol/L (98-107); Estimated GFR-MDRD 10; Globulin 3.5 g/dL (2.4-3.5); Glucose 113 mg/dL (80-115); Potassium 3.6 mmol/L (3.5-5.1); Sodium 139 mmol/L (136-145)
[2018-02-12] MEDS ORDERED: Nitroglycerin 2% Ointment 1 INCH/1 GM Packet ONE (03:59)
--- NOTE | 2018-02-12 08:41 | RAD ---
SINGLE VIEW CHEST: HISTORY: Asthma exacerbated and dyspnea. COMPARISON: 02/04/2018 FINDINGS: A single view of the chest shows an enlarged but stable cardiomediastinal silhouette with atheroscler otic calcifications in the aorta. The pacemaker is unchanged in position. Linear opacity in the rig ht lung base likely represents atelectasis. Increased interstitial markings are present. IMPRESSION: Cardiomegaly without evidence of acute cardiopulmonary disease. POS: [facility]
--- NOTE | 2018-02-12 10:28 | CON ---
DATE OF CONSULTATION: 02/12/2018 RENAL MEDICINE SUBJECTIVE: Ms. Sullivan is a 62-year-old black female with ESRD and admitted for shortness of breath secondary to congestive heart failure. We are now being consulted for emergent hemodialysis and for her maintenance hemodialysis. REVIEW OF SYSTEMS: Positive for shortness of breath, no nausea, no vomiting, no diarrhea or constipa tion. Appetite decreased, energy level is decreased. No abdominal pain, no syncopal episode, no pro ductive cough, no fever or chills. No hematochezia, no melena, no hematemesis. HOME MEDICATIONS: Includes the following; folic acid 0.4 mg once a day, clonidine 0.1 mg b.i.d., zakia rvastatin 40 mg tab at bedtime, clopidogrel 75 mg once a day, lisinopril 5 mg once a day, Nephro-Tanika 1 tab daily, carvedilol 6.25 mg b.i.d., Protonix 40 mg tab once a day. PAST MEDICAL HISTORY: 1. Status post congestive heart failure/cardiomyopathy. 2. End-stage renal disease on maintenance hemodialysis. 3. Hyperlipidemia. 4. Status post gastrointestinal bleed. 5. Chronic hepatitis C. 6. Peripheral vascular disease. 7. Depression. 8. Hypertension. 9. Status post cardiac arrest. 10. Status post ventricular tachycardia. PAST SURGICAL HISTORY: 1. Status post cardiac catheterization. 2. Status post upper and lower GI endoscopy. 3. Status post section. 4. Status post left carotid endarterectomy. 5. Status post AV fistula placement. SOCIAL HISTORY: The patient lives in [place]. Lives alone. . Smoked for 42 years, one pac k a day, occasional alcohol intake. Status post multiple blood transfusions. Education: Some [employer] courses. Retired [employer]. ALLERGIES: PENICILLIN. TRAUMA: None. IMMUNIZATIONS: Up to date. HOSPITALIZATIONS: Please see past medical history. FAMILY HISTORY: Positive family history of ESRD. PHYSICAL EXAMINATION: VITAL SIGNS: Blood pressure is noted at 128/70 and heart rate 72. GENERAL: Awake, alert, comfortable, not in distress. SKIN: Adequate turgor. HEENT: She has slightly pale conjunctivae, anicteric sclerae. NECK: No neck mass, no carotid bruits, no JVD. CHEST: No deformities. LUNGS: Decreased breath sounds. HEART: Normal sinus rhythm. No murmurs, no gallops, no rubs. ABDOMEN: Globular, soft, nontender. No masses. EXTREMITIES: No edema, no deformities. LABORATORY DATA: Laboratories of 02/12/2018; white count 6.5, hemoglobin 8.7. Sodium 139, potassium 3.6, chloride 95, carbon dioxide 32, BUN 40, creatinine 5.44, calcium 10.4. CK 22, troponin I 0.070 , BNP is 15,244. IMAGING DATA: Chest x-ray, increased lung markings. ASSESSMENT AND PLAN: 1. End-stage renal disease, stable, undergoing hemodialysis at the present time and I am supervising the dialysis. I am attempting 5 liter fluid removal due to her symptomatic congestive heart failure . 2. Anemia. Resume Epogen at 10,000 units subcu every 7 days. P.r.n. blood transfusion. 3. Coronary artery disease/cardiomyopathy clinically stable. Maxing out fluid removal with dialysis . Overall, agree with current management.
[2018-02-12] MEDS ORDERED: Epoetin (ESRD) 10,000 UNITS/ML VIAL SC SCH (12:00)
[2018-02-12] MEDS ORDERED: Nitroglycerin 2% Ointment 1 INCH/1 GM Packet TOP SCH (13:15)
[2018-02-12] MEDS ORDERED: Acetaminophen 325 MG TAB PO PRN (13:54)
[2018-02-12] MEDS ORDERED: Bisacodyl 5 MG TAB PO PRN (13:54)
--- NOTE | 2018-02-12 14:06 | HP ---
PRIMARY CARE PROVIDER: Dr. Abhay Roman. CHIEF COMPLAINT: Shortness of breath. HISTORY OF PRESENT ILLNESS: Ms. Sullivan is a pleasant 62-year-old lady who was seen at [facility] on 02/12/2018. She was hospitalized here from 02/04/2018-02/06/2018 for symptoma tic anemia secondary to gastrointestinal bleeding and healthcare associated pneumonia. She reports that she was doing well until today morning. Around 2:30 a.m., she woke up feeling short of breath. She also reports cough that is productive of yellowish sputum. She denies any fevers or chills. She denies any nausea or vomiting. She received nebulizer treatments from EMS, which helpe d with her breathing. She reports feeling better now. REVIEW OF SYSTEMS: All other systems reviewed and found to be negative. PAST MEDICAL HISTORY: Chronic systolic heart failure, recurrent gastrointestinal bleeding, coronary artery disease, status post bare metal stent placement, end-stage renal disease on hemodialysis, hype rtension, peripheral vascular disease, ventricular fibrillation/torsades, anemia of renal disease and secondary hyperparathyroidism. PAST SURGICAL HISTORY: AICD placement, coronary stent placement, dialysis access, hemorrhoidectomy, cholecystectomy, and bilateral carotid endarterectomy. ALLERGIES: PENICILLIN and INTRAVENOUS DYE. CURRENT MEDICATIONS: Folic acid 0.4 mg daily, clonidine 0.1 mg 2 times a day, atorvastatin 40 mg at bedtime, Plavix 75 mg daily, lisinopril 5 mg daily, Nephro-Tanika 1 tablet daily, Coreg 6.25 mg 2 times a day, and pantoprazole 40 mg daily. FAMILY HISTORY: Significant for multiple family members with diabetes mellitus and hypertension. SOCIAL HISTORY: She reports that she quit smoking last month. She denies any alcohol use or recreat [facility] drug use. PHYSICAL EXAMINATION: GENERAL: Ms. Sullivan is awake and alert, not in acute distress. VITAL SIGNS: Blood pressure is 125/74, pulse is 87, she is breathing at rate of 18, and saturating 9 9% on room air. She is afebrile. EYES: No scleral icterus. No conjunctival pallor. ENT: Moist mucosal membranes, no oropharyngeal erythema or exudates. NECK: Supple, nontender, trachea is midline. RESPIRATORY: Accessory muscles of breathing are not active. Chest wall movements are symmetric bila terally. LUNGS: Reveals bibasilar crackles. CARDIOVASCULAR: S1 and S2 are heard, regular. Peripheral pulses palpable. No carotid bruit, no per icardial rub. ABDOMEN: Soft, nontender, bowel sounds are heard, no hepatomegaly, no splenomegaly. SKIN: No rashes or subcutaneous nodules. LYMPHATIC: No cervical lymphadenopathy. NEUROLOGIC: Cranial nerves II through XII intact, deep tendon reflexes are 2+. MUSCULOSKELETAL: Power is 5/5 in all 4 extremities. PSYCHIATRIC: Normal mood, normal affect, patient is oriented to person, place, and time. LABORATORY DATA AND IMAGING: Ms. Sullivan's labs and investigations were reviewed. I reviewed her ho ctrocardiogram, which shows normal sinus rhythm, no ST changes to suggest an acute coronary syndrome. I also reviewed her chest x-ray, which shows mild interstitial edema. She has a normal white count , macrocytic anemia with hemoglobin 8.7, normal platelet count, normal sodium, normal potassium, elev ated blood urea nitrogen of 40, elevated creatinine of 5.44, elevated BNP of 15,244, last known BNP w as 11,760 on 02/04/2018, indeterminate troponin I of 0.070, she had troponins in the similar range in the past as well and an unremarkable liver profile. ASSESSMENT AND PLAN: Ms. Sullivan is a pleasant 62-year-old lady who was seen at [facility] on 02/12/2018. Her problem list includes: 1. Shortness of breath: Likely combination of volume overload/congestive heart failure exacerbation as well as a bronchitis, given her history of cough productive with yellow sputum. She will be admi tted to the hospital for further management. She will be treated with antibiotics as well as volume removal by dialysis, per Nephrology Service. 2. End-stage renal disease on dialysis. Nephrology service being consulted for maintenance hemodial ysis and for removal of excess volume. 3. Hypertension: Resume home medications, monitor vital signs and titrate antihypertensives as need ed. 4. Coronary artery disease: Appears to be stable. We will interrogate ICD to rule out any arrhythm ias as the cause of volume buildup. 5. Chronic anemia: Stable. Many thanks for allowing me to participate in your patient's care. Please feel free to contact me wi th any questions or concerns. LEVEL OF RISK: High. LEVEL OF COMPLEXITY: High.
[2018-02-12] MEDS ORDERED: Sodium Chloride 0.9% 10 ML ONE (20:01)
[2018-02-12 20:07] LABS: CKMB 0.9 ng/mL (0-6.6); Troponin I 0.081 ng/mL (< 0.028)
[2018-02-12] MEDS: Doxycycline 100 MG CAP PO SCH (20:20)
[2018-02-12 22:50] LABS: Troponin I 0.075 ng/mL (< 0.028)
[2018-02-13 05:09] LABS: Band 1 % (5-11); Eosinophils 5 % (0-10); Hemoglobin 8.5 g/dL (12.0-16.0); Lymphocytes 30 % (21-51); MDiff Complete? YES; Mean Corpuscular HGB CONC 33.1 g/dL (32.0-36.0); Mean Corpuscular Hemoglobin 34.3 pg (27.0-31.0); Monocytes 9 % (0-10); Neutrophil 55 % (42-75); PLT Morphology Comment Appears Adequate; Platelet Count 212 thou/uL (130-400); RBC Distribution Width 18.2 % (11.5-14.5); Red Blood Cell (RBC) Count 2.47 mill/uL (4.20-5.40); White Blood Cell (WBC) Count 3.9 thou/uL (4.8-10.8)
[2018-02-13 05:12] LABS: Anion Gap 14 mmol/L (10-20); BUN (Urea Nitrogen) 21 mg/dL (9.8-20.1); Calc. Creatinine Clearance 14 mL/min (70-130); Calcium 9.8 mg/dL (7.8-10.44); Carbon Dioxide 31 mmol/L (23-31); Chloride 101 mmol/L (98-107); Estimated GFR-MDRD 16; Glucose 121 mg/dL (80-115); Potassium 3.6 mmol/L (3.5-5.1); Sodium 142 mmol/L (136-145)
[2018-02-13 08:12] VITALS: TEMP 98.1
--- NOTE | 2018-02-13 08:16 | PRG ---
DATE OF SERVICE: 02/13/2018 RENAL MEDICINE SUBJECTIVE: Ms. Sullivan is a 62-year-old black female with ESRD on maintenance hemodialysis and admit valerio for congestive heart failure. She underwent hemodialysis yesterday with several liters of fluid removed. She is breathing much better today. No new complaints. No chest pain or shortness of carroll th. PHYSICAL EXAMINATION: VITAL SIGNS: Blood pressure is 136/55, heart rate 80, respiratory rate 13, temperature 98.4, pulse o x 97%. GENERAL: Awake, alert, supine, comfortable, not in distress. SKIN: Adequate turgor. HEENT: Slightly pale conjunctivae, anicteric sclerae. NECK: No neck mass, no carotid bruits, no JVD. CHEST: No deformities. LUNGS: Decreased breath sounds, no wheezing, no crackles. HEART: Normal sinus rhythm. No murmurs, no gallops, no rubs. ABDOMEN: Globular, soft, nontender. No masses. EXTREMITIES: No edema. MEDICATIONS: Medications of 02/13/2018 reviewed. LABORATORY DATA: Laboratories of 02/13/2018; white count 3.9, hemoglobin 8.5. Sodium 142, potassium 3.6, chloride 101, carbon dioxide 31, BUN 21, creatinine 3.43, glucose 121, calcium 9.8. ASSESSMENT AND PLAN: 1. End-stage renal disease, stable. No indication for any acute dialytic intervention. She underwe nt dialysis yesterday with several liters of fluid removed. 2. Congestive heart failure, much improved with dialysis and fluid removal. 3. Anemia, on weekly Epogen. Agree with current management.
[2018-02-13] MEDS: Doxycycline 100 MG CAP PO SCH (09:22)
[2018-02-13 11:33] VITALS: BP 139/67
[2018-02-13 11:49] VITALS: BMI 21.4
--- NOTE | 2018-02-13 18:01 | DIS ---
DATE OF ADMISSION: 02/12/2018 DATE OF DISCHARGE: 02/13/2018 PRIMARY CARE PROVIDER: Abhay Roman MD DISCHARGE DIAGNOSES: 1. Volume overload. 2. Congestive heart failure exacerbation. 3. Bronchitis. CONDITION OF PATIENT ON THE DAY OF DISCHARGE: Stable. I assessed Ms. Sullivan on the day of discharge . She denies any chest pain or shortness of breath. She denies any cough or fevers. Vital signs ar e stable. S1 and S2 are heard, regular. Lungs are clear to auscultation bilaterally. DISCHARGE MEDICATIONS: As listed on history and physical note dictated by me on 02/12/2018 are soren nued. Please note that she was also on doxycycline 100 mg 2 times a day and levofloxacin 250 mg maria alejandra y at the time of admission. These medications were also continued at the time of discharge. CONSULTATIONS DURING THIS HOSPITALIZATION: Nephrology, Dr. Reyna. HOSPITAL COURSE: Ms. Sullivan is a pleasant 62-year-old lady who was admitted to [facility] on 02/12/2018 for shortness of breath secondary to volume overload and congestive heart failure. She also had cough that was suggestive of bronchitis. She was seen by Nephrology Service a nd underwent dialysis. Following dialysis, her symptoms resolved. She is being discharged home in a stable condition. Many thanks for allowing me to participate in your patient's care. Please feel free to contact me wi th any questions or concerns. DISCHARGE DESTINATION: Home. TOTAL AMOUNT OF TIME SPENT COORDINATING THIS DISCHARGE: 32 minutes.
== END 2018-02-13 14:47 | disposition home or self-care (01) | DRG 291 ==
LOC: ERS 01:45 → ERHOLD 04:11 → 2NO 08:04
PROVIDERS: ADMIT Internal Medicine; ATTEND Internal Medicine
PROC: 5A1D70Z Performance of Urinary Filtration, Intermittent, Less than 6 Hours Per Day (ICD-10-PCS; principal; 2018-02-12)
DX: I13.2 Hypertensive heart and chronic kidney disease with heart failure and with stage 5 chronic kidney disease, or end stage renal disease (principal); I50.23 Acute on chronic systolic (congestive) heart failure; N18.6 End stage renal disease; N25.81 Secondary hyperparathyroidism of renal origin; J45.901 Unspecified asthma with (acute) exacerbation; Z87.01 Personal history of pneumonia (recurrent); Z99.2 Dependence on renal dialysis; I25.10 Atherosclerotic heart disease of native coronary artery without angina pectoris; I73.9 Peripheral vascular disease, unspecified; D63.1 Anemia in chronic kidney disease; Z95.810 Presence of automatic (implantable) cardiac defibrillator; Z95.5 Presence of coronary angioplasty implant and graft; Z90.49 Acquired absence of other specified parts of digestive tract; E78.5 Hyperlipidemia, unspecified; B18.2 Chronic viral hepatitis C; F32.9 Major depressive disorder, single episode, unspecified; I42.9 Cardiomyopathy, unspecified; Z87.891 Personal history of nicotine dependence
CPT/HCPCS: 36415; 71045; 80048; 80053; 82553; 83880; 84484; 85025; 87040; 90935; 93005; A4216; G0257; Q4081

== ENCOUNTER 2018-02-26 10:04 | Emergency (ER) | payer MEDICARE, OTHER ==
[2018-02-26 11:39] LABS: CKMB 0.8 ng/mL (0-6.6); Troponin I 0.041 ng/mL (< 0.028)
[2018-02-26 11:42] LABS: ALT (SGPT) 9 U/L (8-55); AST (SGOT) 22 U/L (5-34); Albumin 3.7 g/dL (3.4-4.8); Alkaline Phosphatase 128 U/L (40-150); Anion Gap 12 mmol/L (10-20); BUN (Urea Nitrogen) 7 mg/dL (9.8-20.1); Bilirubin, Total 0.6 mg/dL (0.2-1.2); CK (CPK) 28 U/L (29-168); Calc. Creatinine Clearance 0 mL/min (70-130); Calcium 8.5 mg/dL (7.8-10.44); Carbon Dioxide 36 mmol/L (23-31); Chloride 99 mmol/L (98-107); Estimated GFR-MDRD 32; Globulin 3.5 g/dL (2.4-3.5); Glucose 86 mg/dL (80-115); Potassium 3.9 mmol/L (3.5-5.1); Protein, Total 7.2 g/dL (6.0-8.3); Sodium 143 mmol/L (136-145)
[2018-02-26 12:02] LABS: #Eosinphils 0.2 thou/uL (0.0-0.7); #Lymphocytes 0.7 thou/uL (1.20-3.40); #Monocytes 0.2 thou/uL (0.11-0.59); #Neutrophils 1.6 thou/uL (1.40-6.50); %Basophils 0.6 % (0.0-1.0); %Eosinophils 8.5 % (0.0-10.0); %Lymphocytes 23.9 % (21.0-51.0); %Monocytes 7.6 % (0.0-10.0); %Neutrophils 59.4 % (42.0-75.0); Hemoglobin 7.3 g/dL (12.0-16.0); Mean Corpuscular HGB CONC 33.2 g/dL (32.0-36.0); Mean Corpuscular Hemoglobin 35.8 pg (27.0-31.0); Mean Platelet Volume 7.2 fL (7.4-10.4); Platelet Count 193 thou/uL (130-400); RBC Distribution Width 18.5 % (11.5-14.5); Red Blood Cell (RBC) Count 2.05 mill/uL (4.20-5.40); White Blood Cell (WBC) Count 2.7 thou/uL (4.8-10.8)
[2018-02-26 12:05] LABS: MDiff Complete? YES; Macrocytosis SLIGHT = 6-15 cells (100X) (0-5/hpf); Polychromasia SLIGHT = 2-3 cells (100X) (0-2/hpf)
--- NOTE | 2018-02-26 12:24 | RAD ---
CHEST 1 VIEW: Date: 02/26/18 HISTORY: Dyspnea. COMPARISON: Chest radiograph dated 02/12/18. FINDINGS: Heart size is enlarged. Right basilar opacity is slightly improved. Mild edema, slightly improved. Le ft arm vascular stents are present. AICD/pacer in place. IMPRESSION: 1. Cardiomegaly and mild edema, overall improvement. 2. Mildly improving right basilar air space opacity. POS: [facility]
== END 2018-02-26 15:35 | disposition home or self-care (01) ==
LOC: ERS 10:04
DX: N18.6 End stage renal disease (principal); D63.1 Anemia in chronic kidney disease; Z79.899 Other long term (current) drug therapy; I13.2 Hypertensive heart and chronic kidney disease with heart failure and with stage 5 chronic kidney disease, or end stage renal disease; I50.9 Heart failure, unspecified; K21.9 Gastro-esophageal reflux disease without esophagitis; J45.909 Unspecified asthma, uncomplicated
CPT/HCPCS: 36430; 71045; 80053; 82550; 82553; 83880; 84484; 85025; 86850; 86900; 86901; 86920; 93005; P9016

== ENCOUNTER 2018-03-08 14:39 | Outpatient (CLI) | payer MEDICARE, OTHER | END 2018-03-08 14:40 | disposition home or self-care (01) | LOC: BICMAMMO 14:39 | PROVIDERS: ATTEND Family Medicine | DX: Z12.31 Encounter for screening mammogram for malignant neoplasm of breast (principal) | CPT/HCPCS: 77063; 77067 ==

== ENCOUNTER 2018-04-22 19:41 | Observation (INO) | payer MEDICARE, OTHER ==
[2018-04-22 20:22] LABS: #Eosinphils 0.4 thou/uL (0.0-0.7); #Lymphocytes 1.8 thou/uL (1.20-3.40); #Monocytes 0.6 thou/uL (0.11-0.59); #Neutrophils 2.2 thou/uL (1.40-6.50); %Basophils 0.5 % (0.0-1.0); %Eosinophils 7.6 % (0.0-10.0); %Lymphocytes 36.5 % (21.0-51.0); %Monocytes 11.4 % (0.0-10.0); %Neutrophils 43.9 % (42.0-75.0); Hemoglobin 8.3 g/dL (12.0-16.0); Mean Corpuscular HGB CONC 32.6 g/dL (32.0-36.0); Mean Corpuscular Hemoglobin 33.2 pg (27.0-31.0); Mean Platelet Volume 7.2 fL (7.4-10.4); Platelet Count 318 thou/uL (130-400); RBC Distribution Width 16.1 % (11.5-14.5); Red Blood Cell (RBC) Count 2.49 mill/uL (4.20-5.40)
[2018-04-22 20:42] LABS: ALT (SGPT) Less than 7 U/L (8-55); AST (SGOT) 16 U/L (5-34); Alkaline Phosphatase 113 U/L (40-150); Anion Gap 18 mmol/L (10-20); BUN (Urea Nitrogen) 40 mg/dL (9.8-20.1); Bilirubin, Total 0.3 mg/dL (0.2-1.2); Calc. Creatinine Clearance 0 mL/min (70-130); Calcium 8.6 mg/dL (7.8-10.44); Carbon Dioxide 31 mmol/L (23-31); Chloride 96 mmol/L (98-107); Estimated GFR-MDRD 8; Globulin 3.8 g/dL (2.4-3.5); Glucose 71 mg/dL (80-115); Potassium 4.8 mmol/L (3.5-5.1); Protein, Total 7.8 g/dL (6.0-8.3); Sodium 140 mmol/L (136-145)
[2018-04-23] MEDS ORDERED: Pantoprazole 40 MG VIAL ONE (02:16)
[2018-04-23] MEDS ORDERED: Pantoprazole 80 MG, Admixture Fee 1 EACH in Sodium Chloride 0.9% 100 ML IVP SCH (02:30)
[2018-04-23] MEDS ORDERED: Sodium Chloride 0.9% 1,000 ML IV SCH (04:22)
[2018-04-23] MEDS ORDERED: Ondansetron HCl/PF 4 MG/2 ML Vial IVP PRN ×2 (04:22→08:32)
[2018-04-23] MEDS ORDERED: Ondansetron ODT 4 MG TAB SL PRN (04:22)
[2018-04-23 04:25] VITALS: BMI 23.8
[2018-04-23 04:27] VITALS: TEMP 97.9
[2018-04-23 07:31] VITALS: BP 123/69
[2018-04-23 08:23] LABS: HBSAg Index 0.18 S/CO (0-0.99); Hep B Surf Ag Non-Reactive S/CO (NonReactive)
[2018-04-23] MEDS ORDERED: Diabetic Tussin 200 MG/10 ML UDCUP PO PRN (08:32)
[2018-04-23] MEDS ORDERED: traMADol HCl 50 MG TAB PO PRN (08:32)
[2018-04-23] MEDS ORDERED: Senokot 8.6 MG TAB PO PRN (08:32)
[2018-04-23] MEDS ORDERED: Acetaminophen 325 MG TAB PO PRN (08:32)
[2018-04-23] MEDS ORDERED: Nitroglycerin 0.4 MG TAB (25 Tab Bottle) SL PRN (08:32)
[2018-04-23] MEDS ORDERED: Loratadine 10 MG TAB PO PRN (08:32)
[2018-04-23] MEDS ORDERED: hydrALAZINE 20 MG/ML VIAL SLOW IVP PRN (08:32)
[2018-04-23] MEDS ORDERED: Bisacodyl 5 MG TAB PO PRN (08:32)
[2018-04-23] MEDS ORDERED: cloNIDine 0.1 MG TAB PO PRN (08:32)
[2018-04-23] MEDS ORDERED: Benzonatate 100 MG CAP PO PRN (08:32)
[2018-04-23] MEDS ORDERED: PROVENTIL INHALER 6.7 G (200 INHALATIONS) INH PRN (08:34)
[2018-04-23] MEDS ORDERED: Pantoprazole 80 MG in Sodium Chloride 0.9% 100 ML IVP SCH (08:45)
[2018-04-23 08:48] LABS: Hemoglobin 8.2 g/dL (12.0-16.0)
[2018-04-23] MEDS ORDERED: Cinacalcet HCl 30 MG TAB PO SCH (09:00)
--- NOTE | 2018-04-23 11:27 | HP ---
DATE OF ADMISSION: 04/23/2018 CHIEF COMPLAINT: Weakness and fatigue and dizziness. HISTORY OF PRESENT ILLNESS: Ms. Sullivan is a 63-year-old female with end-stage renal disease, ischemi c cardiomyopathy, status post AICD placement as well as coronary artery disease status post and stent placement and hypertension, who presented to the emergency room with above-mentioned complaint. His tory is mainly obtained by the patient herself and electronic medical records have been reviewed. Th e patient has been admitted here multiple times. Most recently, she was admitted here in 01/2018 and underwent ventricular fibrillation arrest requiring AICD placement when she was found to have EF of 20%-25%. At the same time, she underwent placement of a bare-metal stent in the mid RCA. She was ad mitted again in January for low hemoglobin and symptomatic anemia secondary to gastrointestinal bleed. She required 2 units of packed RBC transfusion at that time. At that time, she was evaluated by Dr. Knutson and EGD was not repeated. She was again admitted the same month in 01/2018 for volume overloa d and bronchitis. The patient has had EGD on 12/23/[address] Knutson for recurrent anemia and was found to have AV mal formation bleeding in the stomach, which was cauterized. She has had colonoscopies before, which hav e showed hemorrhoids. This was done in 10/2017. Large inflamed internal and external hemorrhoids wi th ulceration were seen at that time. Otherwise, colonoscopy was normal. She notably has had a smal l bowel capsule endoscopy, which was normal except for AV malformation in the past. During her last endoscopy in 12/2017, she had significant respiratory compromise requiring intubation. It was decide d that no further endoscopy will be done until unless there is a firm evidence of gastrointestinal bl eed. Upon yesterday, the patient was sent to the emergency room by Dr. Reyna for transfusion. Unfortunately , FOBT was checked by the emergency room physician, which was found to be positive and the patient wa s started on proton pump inhibitor drip and admitted for further evaluation and diagnosed as upper ga strointestinal bleed. Her hemoglobin and hematocrit has actually been stable without any drop. She had a hemoglobin of 8.4 on 03/19/2018 and it was 8.3 on 04/22/2018. The patient does have some epiga stric discomfort on palpation, but denies any specific nausea or vomiting. She denies any blood in h er stools or any black tarry looking stools. She denies any hematemesis. She denies any recent illn esses. The patient is seen and examined in the hemodialysis unit and is stable. PAST MEDICAL HISTORY: 1. History of ischemic cardiomyopathy, status post AICD placement. 2. Chronic systolic congestive heart failure, EF 20%-25%. 3. 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 4. Coronary artery disease, status post bare-metal stent placement, 01/2018. 5. End-stage renal disease on hemodialysis. 6. Hypertension. 7. Peripheral vascular disease. 8. History of V-fib arrest and torsades requiring AICD placement in 01/2018. 9. Anemia of chronic kidney disease. 10. Secondary hyperparathyroidism. PAST SURGICAL HISTORY: 1. AICD placement. 2. Coronary stent placement. 3. Dialysis access surgeries. 4. Hemorrhoidectomy. 5. Cholecystectomy. 6. Bilateral carotid endarterectomy. ALLERGIES: PENICILLIN; IV DYE; LISINOPRIL, which causes cough and IODINATED CONTRAST MEDIA. SOCIAL HISTORY: She lives at home and is fairly independent. The patient has quit smoking. Denies any drug abuse. FAMILY HISTORY: Positive for diabetes and hypertension in multiple family members. HOME MEDICATIONS: As below. Aspirin 81 mg daily, Plavix 75 mg daily, Coreg 6.25 mg p.o. b.i.d., Sen sipar 30 mg daily, Renvela 3 tablets p.o. t.i.d., ferrous sulfate 325 mg in the morning, Tylenol as n eeded, folic acid 0.4 mg daily, Anne-Marie-Tanika 1 tablet daily, Ventolin as needed, Protonix 40 mg in the m orning. She was taken off lisinopril by her building rental manager, Dr. Pfeiffer due to excessive cough. CODE STATUS: Full code. Discussed with the patient. REVIEW OF SYSTEMS: A 12-point review of systems was done. It is negative except for those mentioned in the history and physical. LABORATORY DATA: Hemoglobin 8.3 with repeat hemoglobin 8.2 this morning with hematocrit of 25.4. Ot herwise, CBC is unremarkable. Serum chemistry showed chloride 96, BUN 40, creatinine 6.48, glucose 7 1. Hepatitis B surface antigen is negative. PHYSICAL EXAMINATION: VITAL SIGNS: Most recent vital signs, temperature 97.9, pulse of 81, respirations 20, saturating 95% on room air, blood pressure 123/69. GENERAL: No acute distress, awake, alert, oriented x3, seen and examined in hemodialysis unit. HEENT: Mucous membrane is moist and pink. No oropharyngeal exudate or erythema. Head is normocepha lic, atraumatic. Pupils equal and reactive to light and accommodation. Extraocular movement intact. NECK: Supple without any lymphadenopathy, JVD or bruit. CHEST: Clear to auscultation without any wheezing, rales or rhonchi. CARDIOVASCULAR: Rate and rhythm is regular without any murmur, rubs or gallops. ABDOMEN: Soft, mildly tender in the epigastric region, otherwise bowel sounds are heard equally. No rebound, guarding or rigidity. EXTREMITIES: Free of any cyanosis, clubbing or edema. NEUROLOGIC: Nonfocal. SKIN: Free of any rashes or bruises. Feels warm and dry to touch. IMPRESSION AND PLAN: 1. Suspected upper gastrointestinal bleed. She is clinically and hemodynamically stable and has bee n not showing any overt signs of gastrointestinal bleed. She is stable and compliant with her proton pump inhibitors. She does take aspirin and Plavix for her recent stent and coronary artery disease, but denies any hematochezia, melena or hematemesis. H and H has been stable even prior to transfusi on of 1 unit. At this time, active gastrointestinal bleed is not suspected. She most likely has a p ositive FOBT test due to internal and external hemorrhoids. We will request a second opinion from Ga stroenterology, Dr. Holguin, who has been consulted from the Emergency Room. She is currently on suzanne n pump inhibitor drip and we will continue that. We will discontinue the IV fluids. Most likely, if the patient remained stable and does not require any further endoscopic evaluation like EGD, she deny l be discharged later in the day today if remains stable. We will hold aspirin and Plavix for now un til further recommendations from GI colleagues are available. 2. End-stage renal disease. Continue hemodialysis inpatient. She is currently getting hemodialysis now. 3. Coronary artery disease. Resume carvedilol. Hold aspirin and Plavix due to a question of upper gastrointestinal bleed for now. 4. Hypertension, currently controlled. We will restart her home medications. 5. Ischemic cardiomyopathy with AICD placement. Continue and resume home medications as soon as pos sible. 6. Chronic systolic congestive heart failure, currently compensated. Ejection fraction in the 20%-2 5% range. 7. History of ventricular arrhythmia, status post AICD. 8. Anemia of chronic kidney disease. We will restart her ferrous sulfate. 9. History of peripheral vascular disease. 10. Deep venous thrombosis and gastrointestinal prophylaxis with SCDs. Continue proton pump inhibit or. Avoid any pharmacological deep venous thrombosis prophylaxis due to possibility of gastrointesti nal bleed. 11. Add p.r.n. medication and continue symptomatic and supportive care. Home medications have been reconciled. CODE STATUS: Full code. Discussed with the patient. DISPOSITION: Ms. Sullivan is currently being admitted for blood transfusion and question of upper chandler rointestinal bleed. She is hemodynamically stable and not having any active hemorrhage. Further man agement will depend upon her clinical course and recommendations from Gastroenterology.
[2018-04-23] MEDS ORDERED: Sevelamer Carbonate 800 MG TAB PO SCH (12:00)
--- NOTE | 2018-04-23 14:08 | CON ---
DATE OF CONSULTATION: 04/23/2018 CHIEF COMPLAINT: Anemia. HISTORY OF PRESENT ILLNESS: Ms. Sullivan was placed on observation after presenting to the emergency r oom with weakness and fatigue. She was found by the ER physician to have fecal occult blood positive stool; however, no overt bleeding. She had a hemoglobin of 8.3 on presentation, which is at her bas soo. They did transfuse 1 unit of blood. She is on dialysis and had a dialysis later this morning . Post-transfusion hemoglobin, prior to dialysis, was 8.2. She has had no nausea, vomiting, or abdo eloy pain. No blood in the stool, no black stools. PAST MEDICAL HISTORY: She had a prior GI bleed back in December and underwent cautery of a gastric AVM at that time. She has end-stage renal disease, on dialysis; chronic anemia; coronary artery disease wi th a stent placed in January as well as dual-chamber ICD placement in January. She has a history of cirrho sis and hypertension. PAST SURGICAL HISTORY: AICD placement, coronary stents, dialysis access, hemorrhoidectomy, cholecyst ectomy, carotid endarterectomy, upper and lower endoscopy. FAMILY HISTORY: Negative for GI malignancies. SOCIAL HISTORY: She is a former smoker. No drugs, no alcohol. ALLERGIES: PENICILLIN, IV CONTRAST DYE. MEDICATIONS: Here in the hospital include Renvela, pantoprazole drip, Sensipar, carvedilol. As an o utpatient, she is also on aspirin and Plavix. REVIEW OF SYSTEMS: Negative x10 systems reviewed except as stated in the history of present illness. PHYSICAL EXAMINATION: VITAL SIGNS: Temperature 97.9, pulse 81, blood pressure 118/71. GENERAL: She is in no acute distress, alert and oriented x3. LUNGS: Clear to auscultation bilaterally. HEART: Regular rate and rhythm without murmur. NECK: She has no cervical or supraclavicular lymphadenopathy. OROPHARYNX: Clear, without lesions. HEENT: Eyes have no scleral icterus. ABDOMEN: Soft, nontender, nondistended. Bowel sounds are present. EXTREMITIES: No lower extremity edema. RECTAL EXAM: Reveals no stool in the rectal vault. NEUROLOGIC: Cranial nerves are grossly intact. LABORATORY DATA: Hemoglobin is 8.2 after 1-unit transfusion; however, she was also due for dialysis and received fluids in the ER. She has had dialysis since that last hemoglobin. Platelet count is 3 18. White blood cell count 5.0. INR 1.3 back in January, most recent one. BUN 20 and creatinine 3.43. IMPRESSION: Anemia, without any signs of upper gastrointestinal blood loss. This is likely due to c hronic renal disease and other chronic disease. She has Hemoccult positive stool, which is expected considering that she is on aspirin and Plavix and has had prior arteriovenous malfunctions in the pas t. Her hemoglobin did not respond appropriately to transfusion; however, she did receive fluids at t he same time and this was just before dialysis. Followup hemoglobin might have been a diluted specim en. Her hemoglobin is at baseline at this point. There is no indication for endoscopy. She can dis charge home on proton pump inhibitor. RECOMMENDATIONS: 1. PPI daily. 2. She can restart her aspirin and Plavix from a GI standpoint. 3. I will sign off. Please call if GI can be of assistance.
[2018-04-23] MEDS ORDERED: Carvedilol 6.25 MG TAB PO SCH (17:00)
--- NOTE | 2018-04-23 22:50 | DIS ---
DATE OF ADMISSION: 04/23/2018 DATE OF DISCHARGE: 04/23/2018 CONDITION AT THE TIME OF DISCHARGE: Stable and improved. DISCHARGE DIAGNOSIS: Gastrointestinal bleed, ruled out. Rest as per the HPI. Please see admission history and physical for further details. BRIEF HOSPITAL COURSE: The patient was admitted earlier today morning for anemia, requiring transfus ion. There was some concern of upper GI bleed and she was seen by Gastroenterology, Dr. Holguin. Her H and H was stable and she did not require any more blood transfusions. It was thought secondary to be just because of the history of AVMs versus use of aspirin and Plavix. No new recommendations were made by Gastroenterology and it was recommended that she should not undergo any endoscopic procedure s. Aspirin and Plavix were cleared to be restarted and she was cleared to be discharged from the [facility] and outpatient followup. She was seen and examined early in the morning today as per the HPI. I have discussed the discharge plan with the patient, who verbalized understanding. DISCHARGE MEDICATIONS: Remain the same as the admission medication. Please see admission H and P fo r details.
[2018-04-24] MEDS ORDERED: Prevnar 13-Val Conj/PF 0.5 ML SYRINGE IM ONE (09:00)
== END 2018-04-23 15:15 | disposition home or self-care (01) ==
LOC: ERS 19:41 → T4-A 04-23 03:56
PROVIDERS: ADMIT Internal Medicine; ATTEND Internal Medicine
DX: I13.2 Hypertensive heart and chronic kidney disease with heart failure and with stage 5 chronic kidney disease, or end stage renal disease (principal); N18.6 End stage renal disease; I50.22 Chronic systolic (congestive) heart failure; D63.1 Anemia in chronic kidney disease; I25.5 Ischemic cardiomyopathy; Z87.891 Personal history of nicotine dependence; Z79.02 Long term (current) use of antithrombotics/antiplatelets; Z79.82 Long term (current) use of aspirin; Z79.899 Other long term (current) drug therapy; Z88.0 Allergy status to penicillin; Z91.041 Radiographic dye allergy status; Z88.8 Allergy status to other drugs, medicaments and biological substances; Z99.2 Dependence on renal dialysis; Z95.5 Presence of coronary angioplasty implant and graft; Z95.810 Presence of automatic (implantable) cardiac defibrillator
CPT/HCPCS: 36430; 80053; 82274; 85014; 85018; 85025; 86850; 86900; 86901; 86920; 87340; 96365; 96366; 96376; 97139; 99285; G0378; P9016; 36415; 90935; C9113; G0257; J7050

== ENCOUNTER 2018-07-23 18:32 | Inpatient (IN) | payer MEDICARE, OTHER ==
[2018-07-23] MEDS ORDERED: diphenhydrAMINE 50 MG/ML VIAL ONE (18:58)
[2018-07-23] MEDS ORDERED: methylPREDNISolone Sod Succ/PF 125 MG/2 ML VIAL ONE (18:58)
[2018-07-23] MEDS ORDERED: Pantoprazole 40 MG VIAL ONE (18:58)
[2018-07-23] MEDS ORDERED: Famotidine/PF 20 mg/2ml Vial ONE (19:00)
--- NOTE | 2018-07-23 20:41 | CT ---
CT ANGIO OF CHEST PERFORMED WITH INTRAVENOUS CONTRAST ENHANCEMENT WITH 3D RECONSTRUCTIONS: 07/23/18 HISTORY: Shortness of breath. Lungs are clear of any confluent infiltrates. There is linear atelectasis present in both the lingula and right middle lobe. There is very small left pleural effusion present. A large pericardial effusion is identified. The thoracic aorta shows moderate atherosclerotic change. There is good pulmonary artery opacification, there is no CT evidence for pulmonary embolus. The visualized liver parenchyma shows no focal abnormality. Kidneys are partially visualized. The liset ear somewhat atrophic with cortical thinning. The gallbladder has been removed. IMPRESSION: 1. Large pericardial effusion. 2. No CT evidence for pulmonary embolus. POS: [facility]
--- NOTE | 2018-07-23 20:48 | CT ---
CT ANGIO OF CHEST AND ABDOMEN PERFORMED WITH INTRAVENOUS CONTRAST ENHANCEMENT WITH 3D RECONSTRUCTIONS : 07/23/18 HISTORY: Dyspnea. Back pain. Lungs show some linear atelectasis in the right middle lobe and lingula. No focal infiltrative proces s is noted. A large pericardial effusion is seen. There is fair opacification of the pulmonary arteries. No CT ev idence for pulmonary embolus. There is extensive atherosclerotic change within a normal caliber aorta. There is moderate atheroscle rotic change of the coronary arteries. CT ANGIO OF ABDOMEN PERFORMED WITH CONTRAST: The liver and spleen show no focal abnormalities on this angiographic phase exam. Right and left adre nal glands are normal. Right and left kidneys appear atrophic. There is vascular calcifications noted . There is moderate atherosclerotic change of the aorta. No aneurysm or dissection. IMPRESSION: No evidence of aneurysm or dissection of the aorta. Large pericardial effusion. POS: [facility]
[2018-07-23 21:23] LABS: INR-International Normal Ratio 1.5; PTT 26.8 SEC (22.9-36.1); Prothrombin Time 17.9 SEC (12.0-14.7)
[2018-07-23 21:32] LABS: #Lymphocytes 0.5 thou/uL (1.20-3.40); #Monocytes 0.2 thou/uL (0.11-0.59); #Neutrophils 3.6 thou/uL (1.40-6.50); %Eosinophils 0.8 % (0.0-10.0); %Lymphocytes 11.7 % (21.0-51.0); %Monocytes 5.3 % (0.0-10.0); %Neutrophils 82.2 % (42.0-75.0); Hemoglobin 9.9 g/dL (12.0-16.0); Mean Corpuscular HGB CONC 32.4 g/dL (32.0-36.0); Mean Corpuscular Hemoglobin 32.5 pg (27.0-31.0); Mean Platelet Volume 8.4 fL (7.4-10.4); Platelet Count 135 thou/uL (130-400); RBC Distribution Width 16.6 % (11.5-14.5); Red Blood Cell (RBC) Count 3.06 mill/uL (4.20-5.40); White Blood Cell (WBC) Count 4.4 thou/uL (4.8-10.8)
[2018-07-23 21:39] LABS: ALT (SGPT) Less than 7 U/L (8-55); AST (SGOT) 14 U/L (5-34); Albumin 3.7 g/dL (3.4-4.8); Alkaline Phosphatase 123 U/L (40-150); Anion Gap 18 mmol/L (10-20); BUN (Urea Nitrogen) 20 mg/dL (9.8-20.1); Bilirubin, Total 1.1 mg/dL (0.2-1.2); Calc. Creatinine Clearance 0 mL/min (70-130); Carbon Dioxide 26 mmol/L (23-31); Chloride 95 mmol/L (98-107); Estimated GFR-MDRD 15; Globulin 3.7 g/dL (2.4-3.5); Glucose 99 mg/dL (80-115); Potassium 4.2 mmol/L (3.5-5.1); Protein, Total 7.4 g/dL (6.0-8.3); Sodium 135 mmol/L (136-145)
[2018-07-23 22:01] LABS: CKMB 0.5 ng/mL (0-6.6)
[2018-07-24 00:11] VITALS: BMI 23.8
[2018-07-24] MEDS ORDERED: Ondansetron ODT 4 MG TAB SL PRN (00:26)
[2018-07-24] MEDS ORDERED: Ondansetron PF 4 MG/2 ML Vial IVP PRN (00:26)
[2018-07-24] MEDS ORDERED: Acetaminophen 325 MG TAB PO PRN (00:26)
[2018-07-24 01:26] LABS: CKMB 0.5 ng/mL (0-6.6)
[2018-07-24] MEDS ORDERED: PROVENTIL INHALER 6.7 G (200 INHALATIONS) INH PRN (02:04)
--- NOTE | 2018-07-24 04:25 | HP ---
CHIEF COMPLAINT: Chest pain. HISTORY OF PRESENT ILLNESS: This patient is a 63-year-old female with a history of significant prior cardiac disease including coronary artery disease and placement of an AICD in January for VFib arrest and an ejection fraction of 20% to 25%. At that time, the patient also had a bare metal stent placed in her mid RCA. She has been admitted a couple of times since that time with apparent GI bleeding likely due to some AVMs of the small bowel. The patient also has end-stage renal disease and is receiving routine hemodialysis through Dr. Reyna. The patient reports that earlier in the week, she started developing dyspnea on exertion that was fairly severe if she go and walk a few steps without becoming profoundly short of breath. She had some associated chest discomfort, which she states started in her mid back area, radiated around the left side of her chest into the central sternal area. She thought she was not getting adequate fluid taken off with dialysis. She went to Dialysis on Thursday and encouraged her to take little bit more. After that, she felt a little better briefly, but then spontaneously had another episode of dyspnea on exertion and chest discomfort. She states this seems to come and go somewhat randomly. At that moment, she was actually feeling a little bit better. She states she has never had this type of chest pain before. REVIEW OF SYSTEMS: The patient denies any significant changes in her weight. She does report some orthopnea which has been intermittent problem for her. She doesn't even try to sleep flat anymore. She denies any palpitations, significant peripheral edema. She denies cough or wheezing. All other systems were reviewed and pertinent positives and negatives noted in the history of present illness. PAST MEDICAL HISTORY: Notable for, 1. End-stage renal disease, on hemodialysis. 2. Ischemic cardiomyopathy with ejection fraction of 20% to 25%. 3. Chronic systolic congestive heart failure, status post placement of AICD. 4. Recurrent GI bleed secondary to AV malformations of the duodenum. 5. Coronary artery disease, status post bare metal stenting in January of 2018. 6. Hypertension. 7. Peripheral vascular disease. 8. History of VFib arrest and torsades. 9. Anemia of chronic disease. 10. Secondary hyperparathyroidism. PAST SURGICAL HISTORY: 1. AICD placement. 2. Coronary artery stent. 3. Dialysis access. 4. Hemorrhoidectomy. 5. Cholecystectomy. 6. Bilateral carotid endarterectomies. FAMILY HISTORY: Notable for diabetes and hypertension in multiple family members. SOCIAL HISTORY: The patient lives at home and remains very independent. She has a history of smoking, but does not now. No drugs. No alcohol. She is full code. She has a daughter and some yazidi friends who are listed in her paperwork as her surrogate decision makers. ALLERGIES: 1. IV DYE. 2. LISINOPRIL WHICH CAUSES COUGH. HOME MEDICATIONS: 1. Lisinopril 20 mg daily. 2. Atorvastatin 10 mg daily. 3. Aspirin 81 mg daily. 4. Tylenol 650 as directed. 5. Folate 0.4 mg daily. 6. Sensipar 30 mg daily. 7. Coreg 6.25 daily. 8. Renvela 800 mg t.i.d. 9. Protonix 40 mg q.a.m. 10. Ventolin inhaler 2 puffs q.4 hours p.r.n. PHYSICAL EXAMINATION: VITAL SIGNS: Temperature 97.6, pulse 80, BP 159/73, respirations 18, O2 saturation 97% on room air. GENERAL APPEARANCE: Age-appropriate female. She is in no distress. She is awake, alert, pleasant, and cooperative. HEENT: PERRL. No OP lesions. NECK: Supple and symmetric without lymphadenopathy. HEART: Has a 2/6 murmur, best at the upper sternal border. No specific rub is noted. HEART: Heart sounds are not substantially muffled. LUNGS: Lung sounds are clear bilaterally with good chest wall expansion and air exchange. ABDOMEN: Soft, nontender, and nondistended. Positive bowel sounds. No masses. No organomegaly. EXTREMITIES: No significant cyanosis, clubbing, or edema. LABORATORY DATA: White count 4.4, hemoglobin 9.9, platelets 135. PT 17.9, INR is 1.5. Sodium 135, potassium 4.2, chloride 95, CO2 of 26, BUN 20, creatinine is 3.63, calcium 9.0, glucose 99, AST 14, ALT less than 7. Troponin 0.088, subsequent 0.100. Albumin is 3.7. CT dissection shows no evidence of aneurysm or dissection, large pericardial effusions present. CTA of the thorax shows large pericardial effusion. No evidence of pulmonary embolus. EKG shows some nonspecific T-wave changes, especially in lateral leads, which are unchanged from the EKG in January. IMPRESSION AND PLAN: 1. Chest pain. The patient has a history of coronary artery disease, and this pain is different from symptoms that she has had previously. Suspect this is related to her large pericardial effusion. 2. Pericardial effusion. The patient has a substantial pericardial effusion noted both on CT angiogram and CT dissection protocol of the chest. Her symptoms certainly are consistent with having some symptomatic pericardial effusion. We will obtain an echo 1st thing when they are available. Consult Cardiology and consult CV Surgery. She does not appear to have pericarditis per se, and she is not substantially uremic. 3. Elevated troponin. Suspect this is possibly related to her end-stage renal disease and pericardial effusion, but does not appear to be preischemic in nature. However, given her coronary artery disease, we will consult Cardiology to assess this as well. 4. End-stage renal disease, on dialysis. We will consult Nephrology to continue with her usual dialysis regimen. 5. Anemia of renal disease. Her hemoglobin is actually a little better than her most recent baseline. No intervention indicated. 6. History of hypertension. Continue with the lisinopril and Coreg. 7. Hyperlipidemia. Continue with the Lipitor. Job ID: [id number] [facility]
[2018-07-24] MEDS ORDERED: HYDROcodone/Acetaminophen 5/325 mg Tablet PO SCH (06:00)
[2018-07-24 06:13] LABS: CKMB 0.5 ng/mL (0-6.6)
[2018-07-24] MEDS: Carvedilol 6.25 MG TAB PO SCH (09:01)
[2018-07-24] MEDS: Folic Acid 1 MG TAB PO SCH (09:02)
[2018-07-24] MEDS: Lisinopril 20 MG TAB PO SCH (09:02)
[2018-07-24] MEDS: Sevelamer Carbonate 800 MG TAB PO SCH ×3 (09:03→18:27)
[2018-07-24] MEDS: Atorvastatin Calcium 10 MG TAB PO SCH (09:03)
[2018-07-24] MEDS: Cinacalcet HCl 30 MG TAB PO SCH (09:03)
--- NOTE | 2018-07-24 10:48 | CON ---
DATE OF CONSULTATION: 07/24/2018 HISTORY OF PRESENT ILLNESS: This is a 63-year-old lady on chronic hemodialysis, who has been having increasing dyspnea recently. She does have a known history of poor cardiac ejection fraction and has had an AICD placed in January of this year for V-Fib arrest. She also had a right coronary stent placed at that time by Dr. Pfeiffer. She has not had any significant improvement in her symptoms despite increasing her fluid removal during dialysis. Due to the fact that she is unable to breathe comfortably at home or lie flat, she has presented to the hospital. A CT angiogram of the chest was significant only for a pericardial effusion. PAST MEDICAL HISTORY: Include hypertension, chronic anemia, and ischemic cardiomyopathy. PAST SURGICAL HISTORY: AICD placement, coronary artery stent, dialysis access, hemorrhoidectomy, cholecystectomy, and left carotid endarterectomy. SOCIAL HISTORY: She lives at home independently. She is not currently smoking. ALLERGIES: CONTRAST ALLERGY AND LISINOPRIL ALLERGY. MEDICATIONS: Home medications include, 1. Lisinopril. 2. Atorvastatin. 3. Aspirin. 4. Coreg. 5. Protonix. 6. Ventolin inhaler. 7. Sensipar. 8. Folate. 9. Renvela. PHYSICAL EXAMINATION: GENERAL: She is alert, cooperative lady, comfortable at this time. VITAL SIGNS: Blood pressure 150/90, heart rate of 80. NECK: Healed left carotid endarterectomy incision, and in the 30-degree upright position, I do not appreciate any jugular venous distention. LUNGS: Clear to auscultation. CARDIAC: Regular rate and rhythm. No murmurs. ABDOMEN: Soft, nontender. EXTREMITIES: AV fistula, left arm. ASSESSMENT AND PLAN: I have reviewed her chest x-ray and her globular heart has increased in size over the past six months to some extent. Her cardiac echo has just been completed, and I will review that with Dr. Pfeiffer and consider a pericardial window depending on the results of the echo. I have discussed this with the patient, and she is agreeable to proceed if needed. Job ID: [id number]
[2018-07-24] MEDS ORDERED: Epoetin (ESRD) 20,000 UNITS/ML SC SCH (11:00)
[2018-07-24] MEDS ORDERED: Fentanyl 250 MCG/5 ML VIAL ONE (11:18)
[2018-07-24] MEDS ORDERED: Phenylephrine HCL 10 MG/ML VIAL ONE (11:19)
[2018-07-24] MEDS ORDERED: Norepinephrine 8 MG/0.9% NS 0 ML ONE (11:19)
--- NOTE | 2018-07-24 11:20 | PDOC.PN ---
- Subjective Encounter Start Date: 07/24/18 Encounter Start Time: 09:45 Subjective: has orthopnea, no chest pain or palp - Objective Resuscitation Status - Order Detail: 07/24/18 01:58 Resuscitation Status Routine Resuscitation Status: FULL: Full Resuscitation Discussed with: patient DAVID Reviewed: Yes Vital Signs & Weight: Vital Signs (12 hours) Temp Pulse Resp BP BP BP Pulse Ox 07/24/18 09:02 158/93 H 07/24/18 09:01 158/93 H 07/24/18 07:06 98.0 F 82 16 134/68 94 L 07/24/18 05:45 85 20 158/93 H 95 07/24/18 04:18 97.6 F 85 16 148/78 H 95 07/24/18 04:15 97.6 F 85 16 148/78 H 95 Weight Weight 126 lb 3.2 oz I&O: 07/23/18 07/24/18 07/25/18 06:59 06:59 06:59 Intake Total 1250 Output Total 0 Balance 1250 Result Diagrams: 07/23/18 21:05 07/23/18 21:05 Phys Exam - Physical Examination HEENT: PERRLA, moist MMs Neck: no JVD, supple Respiratory: no wheezing, no rales Cardiovascular: RRR, no significant murmur Gastrointestinal: soft, non-tender, positive bowel sounds Musculoskeletal: no edema, pulses present Neurological: non-focal, moves all 4 limbs Psychiatric: normal affect, A&O x 3 Dx/Plan (1) Acute exacerbation of CHF (congestive heart failure) Code(s): I50.9 - HEART FAILURE, UNSPECIFIED Status: Acute Qualifiers: Heart failure type: systolic Qualified Code(s): I50.23 - Acute on chronic systolic (congestive) heart failure Comment: ef of 25% (2) Pericardial effusion Code(s): I31.3 - PERICARDIAL EFFUSION (NONINFLAMMATORY) Status: Acute (3) CAD (coronary artery disease) Code(s): I25.10 - ATHSCL HEART DISEASE OF [place] CORONARY ARTERY W/O ANG PCTRS Status: Chronic Qualifiers: Coronary Disease-Associated Artery/Lesion type: [place] artery [place] vs. transplanted heart: [place] heart Associated angina: without angina Qualified Code(s): I25.10 - Atherosclerotic heart disease of [place] coronary artery without angina pectoris Comment: prior Stent placement (4) ESRD (end stage renal disease) Code(s): N18.6 - END STAGE RENAL DISEASE Status: Chronic Comment: on HD (5) Anemia of renal disease Code(s): D63.1 - ANEMIA IN CHRONIC KIDNEY DISEASE Status: Chronic (6) COPD (chronic obstructive pulmonary disease) Status: Chronic Qualifiers: COPD type: unspecified COPD (7) Dyslipidemia Code(s): E78.5 - HYPERLIPIDEMIA, UNSPECIFIED Status: Chronic (8) ESRD (end stage renal disease) on dialysis Code(s): N18.6 - END STAGE RENAL DISEASE; Z99.2 - DEPENDENCE ON RENAL DIALYSIS Status: Chronic Comment: Maintainanace dialysis per nephrology service (9) PVD (peripheral vascular disease) Code(s): I73.9 - PERIPHERAL VASCULAR DISEASE, UNSPECIFIED Status: Chronic Comment: stable - Plan is going to OR for pericardial window today -: for HD in am with fluid removal -: continue lipitor, coreg and lisinopril, hold aspirin for now -: to ambulate in hallway in am -: will f/u * . Review of Systems - Medications/Allergies Allergies/Adverse Reactions: Allergies Allergy/AdvReac Type Severity Reaction Status Date / Time iodine Allergy Severe Verified 07/24/18 00:34 Penicillins Allergy Severe Verified 07/24/18 00:34 Medications: Current Medications Albuterol Sulfate (Proventil Hfa) 2 puff INH Q4H PRN PRN Reason: SOB &/or Wheezing Atorvastatin Calcium (Lipitor) 10 mg PO DAILY [facility] Last Admin: 07/24/18 09:03 Dose: 10 mg Carvedilol (Coreg) 6.25 mg PO QAM-[facility] Last Admin: 07/24/18 09:01 Dose: 6.25 mg Cinacalcet (Sensipar) 30 mg PO DAILY [facility] Last Admin: 07/24/18 09:03 Dose: Not Given Epoetin Johnson (Procrit) 7,500 units SC Q7D [facility] Folic Acid (Folvite) 0.5 mg PO DAILY [facility] Last Admin: 07/24/18 09:02 Dose: 0.5 mg Lisinopril (Zestril) 20 mg PO DAILY [facility] Last Admin: 07/24/18 09:02 Dose: 20 mg Pantoprazole Sodium (Protonix) 40 mg PO QAM [facility] Last Admin: 07/24/18 09:02 Dose: 40 mg Sevelamer Carbonate (Renvela) 800 mg PO TID-[facility] Last Admin: 07/24/18 09:03 Dose: Not Given
[2018-07-24] MEDS ORDERED: Fentanyl 100 MCG/2 ML VIAL ONE ×3 (14:14→15:38)
[2018-07-24] MEDS ORDERED: Sterile Water 10 ML VIAL ONE (14:39)
[2018-07-24] MEDS ORDERED: CEFAZOLIN 1 GM VIAL ONE (14:39)
[2018-07-24] MEDS ORDERED: Lidocaine 1% PF 5 ML VIAL ONE (14:39)
[2018-07-24] MEDS ORDERED: PROPOFOL 200 MG/20 ML VIAL ONE (14:39)
[2018-07-24] MEDS ORDERED: PHENYLEPHRINE-NS 100 MCG/ML 10 ML SYRINGE ONE (14:39)
[2018-07-24] MEDS ORDERED: Fentanyl 100 MCG/2 ML VIAL SLOW IVP PRN (15:56)
[2018-07-24] MEDS ORDERED: HYDROcodone/Acetaminophen 5/325 mg Tablet PO PRN (15:56)
[2018-07-24 16:21] LABS: BF Color Red; Body Fluid Source PLEURAL FLUID; Clarity Cloudy/Turbid (Clear); Tube # 1
[2018-07-24 16:22] LABS: RBC Background Count 0.008; RBC Count-Automated 2440000 /cumm; WBC/NonHematic-Auto 1700 /cumm
[2018-07-24 16:41] LABS: BF Segmented Neutrophils 72 %; Cell Count Non Hematic 6 %; Lymphocytes 22 %
--- NOTE | 2018-07-24 18:50 | CON ---
DATE OF CONSULTATION: 07/24/2018 HISTORY OF PRESENT ILLNESS: Ms. Sullivan is a 63-year-old black female with ESRD and admitted for chest pain associated with mild shortness of breath. She had a workup and was found to have significant pericardial effusion. A surgical consult is being done for a possible pericardial window placement. We are being consulted for maintenance hemodialysis. The patient did receive dialysis on Thursday. The plan is for her to be scheduled on Thursday for regular dialysis. No other complaints. Still with occasional chest pain with mild shortness of breath. REVIEW OF SYSTEMS: Positive for chest pain. Positive for shortness of breath. No nausea. No vomiting. No syncopal episode. No productive cough. No fever or chills. No diarrhea. No constipation. Appetite and energy level are fair. Occasional joint pains. No abdominal pain. No sore throat. No headache. No diplopia. No hematochezia. No melena. No hematemesis. No dysuria. MEDICATIONS: 1. Lipitor 10 mg daily. 2. Proventil 2 puffs q.4. 3. Coreg 6.25 mg q.a.m. 4. Sensipar 30 mg daily. 5. Folvite 0.5 mg daily. 6. Lisinopril 20 mg daily. 7. Protonix 40 mg q.a.m. 8. Renvela 800 mg p.o. t.i.d. with meals. PAST MEDICAL HISTORY: 1. ESRD and currently on maintenance hemodialysis. 2. Status post upper GI bleed. 3. History of heavy alcohol intake, chronic hepatitis C. 4. Sickle cell trait. 5. Peripheral vascular disease. 6. Depression. 7. Hypertension. 8. History of upper GI AV malformation. PAST SURGICAL HISTORY: Status post upper and lower GI endoscopy, status post AV fistula placement, status post cardiac cath, status post left carotid endarterectomy, status post section, status post cuffed hemodialysis catheter placement. SOCIAL HISTORY: The patient lives in [place] and lives alone. She is . Smoked for 42 years, averaging one pack a day, status post alcohol use, although reportedly still taking alcohol, status post multiple blood transfusions. Education, some college courses. 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 FAMILY HISTORY: Positive family history of ESRD. ALLERGIES: PENICILLIN. TRAUMA: None. IMMUNIZATION: Up-to-date. HOSPITALIZATIONS: Please see past medical history. PHYSICAL EXAMINATION: VITAL SIGNS: Blood pressure is noted at 158/93, heart rate 82, respiratory rate 16, temperature 98, and pulse ox 94%. GENERAL: Awake, alert, supine, and comfortable, not in overt distress. SKIN: Adequate turgor. HEENT: Slightly pale conjunctivae. Anicteric sclerae. NECK: No neck mass. No carotid bruits. No JVD. CHEST: No deformities. LUNGS: Clear breath sounds. No wheezing. No crackles. HEART: Normal sinus rhythm. No murmurs, gallops, or rubs. ABDOMEN: Globular, soft, nontender. No masses. EXTREMITIES: No edema. NEUROLOGICAL: Awake and oriented to 3 spheres. Moving all extremities. No tremors. No asterixis. LABORATORY DATA: Laboratories of July 23, 2018; white count 4.4 and hemoglobin 9.9. Sodium 135, potassium 4.2, chloride 95, carbon dioxide 26, BUN 20, creatinine 3.63, glucose 99, and calcium 9.0. On July 24, 2018, cardiac echo showed an EF of 20% to 25%. There is severe tricuspid regurgitation. There is also a moderate pericardial effusion. CT scan of the chest and thorax on July 23, 2018 - large pericardial effusion. No CT evidence of pulmonary embolus. On July 23, 2018, CT for dissection, there is no evidence of aneurysm or dissection of aorta. ASSESSMENT AND PLAN: 1. [id number] pericardial effusion. Surgical consult has been done whether this patient may need a pericardial window. 2. Anemia. Continue weekly Epogen 7500 units subcu every week. 3. End-stage renal disease, stable. We will continue 3 times a week hemodialysis regimen. If blood pressure is stable, we will attempt to max out fluid removal with hemodialysis tomorrow. Review of the last Kt/V suggests she is adequately dialyzed with the current dialysis regimen. Job ID: [id number]
[2018-07-24] MEDS: HYDROcodone/Acetaminophen 5/325 mg Tablet PO PRN (20:32)
--- NOTE | 2018-07-24 21:52 | OP ---
DATE OF PROCEDURE: 07/24/2018 PREOPERATIVE DIAGNOSIS: Pericardial effusion with early pericardial tamponade. PROCEDURE PERFORMED: Pericardial window and drainage, pericardial biopsy. ANESTHESIA: General. ESTIMATED BLOOD LOSS: Less than 10 mL. DESCRIPTION OF PROCEDURE: After adequate anesthesia had been obtained, the patient was prepped and draped. Incision was made just below the xiphoid process. The fascia was incised and using a Kittner, a blunt dissection was carried out and Bovie was used to coagulate the pericardium, opening the pericardial space. This was extended inferiorly with the scissors and about 400 mL of dark bloody fluid was aspirated. There was no significant inflammatory component on the pericardial surface. A section of pericardium was excised to allow pathology to be done and a 24-[place] Wilson drain was then placed through a separate stab incision and connected to a bulb syringe. The fascia was reapproximated with interrupted [id number] Vicryl sutures and the skin was then closed with 0 Vicryl suture. The patient is to be taken to the recovery room in satisfactory condition. Job ID: [id number]
[2018-07-25] MEDS: HYDROcodone/Acetaminophen 5/325 mg Tablet PO PRN ×2 (04:21→18:00)
[2018-07-25] MEDS: Sevelamer Carbonate 800 MG TAB PO SCH ×4 (09:37→18:01)
[2018-07-25 10:01] LABS: HBSAg Index 0.25 S/CO (0-0.99); Hep B Surf Ag Non-Reactive S/CO (NonReactive)
[2018-07-25] MEDS: Lisinopril 20 MG TAB PO SCH (10:33)
--- NOTE | 2018-07-25 10:41 | PRG ---
DATE OF SERVICE: 07/25/2018 RENAL MEDICINE SUBJECTIVE: Ms. Sullivan is a 63-year-old black female with ESRD on maintenance hemodialysis. I am at the bedside supervising her dialysis. Fluid removal only as tolerated. She was admitted for chest pain and shortness of breath. She was found to have significant pericardial effusion. She underwent placement of a pericardial window. This morning, she is feeling better. The patient denies any chest pain or shortness of breath. OBJECTIVE: VITAL SIGNS: Blood pressure 104/65, heart rate 77, respiratory rate 18, temperature 97.7, and pulse ox 95%. GENERAL: Awake, alert, supine, and comfortable, not in distress. SKIN: Adequate turgor. HEENT: Slightly pale conjunctivae. Anicteric sclerae. No neck mass. No carotid bruits. No JVD. CHEST: Positive for pericardial tube. LUNGS: Clear breath sounds. No wheezing. No crackles. HEART: Normal sinus rhythm. No murmurs. No gallops. No rubs. ABDOMEN: Globular, soft, and nontender. No masses. EXTREMITIES: No edema. No deformities. MEDICATIONS: Medications of July 25, 2018, reviewed. LABORATORY DATA: Laboratories of July 23, 2018; white count 4.4, hemoglobin 9.9. Sodium 135, potassium 4.2, chloride 95, carbon dioxide 26, BUN 20, creatinine 3.63. LFTs normal. Troponin I 0.089. ASSESSMENT AND PLAN: 1. Pericardial effusion, status post pericardial window placement. Cardiothoracic Surgery is following. 2. Anemia, continuing weekly Epogen. 3. End-stage renal disease, stable. We will continue current hemodialysis regimen of three times a week. Fluid removal only as tolerated. Transient episodes of hypotension. For this reason, we will hold off the patient's lisinopril temporarily. Job ID: [id number]
--- NOTE | 2018-07-25 11:16 | CON ---
DATE OF CONSULTATION: 07/24/2018 HISTORY OF PRESENT ILLNESS: Dai Sullivan is a 63-year-old black female with end-stage renal disease and cirrhosis, who was previously on a liver and kidney transplant in [place]. In 2015, she had placement of a stent in right coronary artery at another facility. She has had problems with recurrent GI bleeds. In October 2017, colonoscopy revealed internal and external hemorrhoids as well as diverticulosis. EGD in December 2017 revealed large stomach AV malformation that was cauterized. She also has undergone capsule endoscopy with findings of small intestine AV malformation. She was admitted in January 2018 with recurrent lower GI bleeding. She was at inpatient dialysis and started having problems with breathing. She was found to be in ventricular fibrillation, was defibrillated, and the decision was made to intubate her. A partial plate was seen to be over the supraglottic area. That was removed, she was intubated and transferred to the unit. After being in the unit, she had an episode of torsades de pointes. She was defibrillated from that, placed on amiodarone and had two other such episodes of torsade. However,she only received an Amiodarone loading dose of 75mg. She was given an additional 75 mg of amiodarone. She had history of dye allergy and was therefore premedicated prior to undergoing cardiac catheterization to rule out ischemia as a cause of her torsade. The following day, she underwent cardiac catheterization. There was 40% mid LAD, 70% first diagonal, and 40% second diagonal. The circumflex had a 20% obtuse marginal 1, which was heavily calcified. The right coronary artery had 80% in-stent restenosis in the mid RCA. The decision was made to use a bare-metal stent with her recurrent GI bleeds. Rebel 3.0 x 16 and 3.0 x 32 mm stents were placed with reduction from 80% to 0%. After that, she did not have any further episodes of torsades. It was also of note that she was on Plavix only and not on aspirin. She was on Plavix for her previous stent. Echocardiogram revealed that her ejection fraction was 20% to 25%, whereas it had been 50% in the past. There is moderate mitral regurgitation, aortic valvular sclerosis, and [id number] tricuspid regurgitation. She was seen by Electrophysiology and with her bradycardia as well as torsade and significant drop in her ejection fraction, she underwent placement of a dual-chamber ICD during that admission. She was discharged, but admitted 1 week later with recurrent GI bleeding. She has since had multiple admissions for GI bleeding and volume overload. She was seen in the office on May 06, 2018 and in general, was asymptomatic. Plavix should have been stopped after 1 month, but she was still taking it at that time and it was discontinued. I have not seen her since that time. She now is admitted with increased shortness of breath and chest discomfort. She has a burning sensation in the lower part of her left chest that is definitely pleuritic in nature. She also has noted increased dyspnea on exertion. She underwent chest CTA in the emergency room and had no evidence of pulmonary embolism. A large pericardial effusion was identified. She therefore is admitted for further evaluation of this. PAST MEDICAL HISTORY: End-stage renal disease on dialysis, cardiomyopathy with ejection fraction dropping from 50% to 20%-25% in January 2018, torsades de pointes , ischemically mediated. Chronic systolic congestive heart failure, recurrent GI bleed secondary to hemorrhoids, diverticulosis, small intestinal AV malformation as well as gastric AV malformation, coronary artery disease status post stenting in January 2018 of the mid right coronary artery in-stent restenosis, hypertension, hypercholesterolemia, secondary hyperparathyroidism, and anemia. PAST SURGICAL HISTORY: Coronary artery stent placement, AICD placement, section, bilateral carotid endarterectomies, AV fistula placement, and cholecystectomy. MEDICATIONS: 1. Lisinopril 20 daily. 2. Atorvastatin 10 daily. 3. Aspirin 81 daily. 4. Tylenol p.r.n. 5. Folate 0.4 mg daily. 6. Sensipar 30 daily. 7. Carvedilol 6.25 b.i.d. 8. Renvela t.i.d. 9. [id number] qd. ALLERGIES: IVP DYE AND PENICILLIN. SOCIAL HISTORY: She smokes one-half pack per day. FAMILY HISTORY: Unremarkable for coronary artery disease. REVIEW OF SYSTEMS: A 12-point review of systems is otherwise unremarkable. PHYSICAL EXAMINATION: VITAL SIGNS: Blood pressure 136/70 with a paradox of 12 by my measurement, and pulse 82. HEENT: PERRL. NECK: Supple. CHEST: Clear. CARDIAC: S1 and S2 normal without any S3 or S4. There is a 2/6 murmur in the aortic area. No rub is heard. ABDOMEN: Normal bowel sounds without tenderness or organomegaly. EXTREMITIES: Revealed no clubbing, cyanosis, or edema. NEUROLOGICAL: Grossly intact. SKIN: Warm and dry. LABORATORY DATA: EKG revealed sinus tachycardia with rate of 122 per minute. There are nonspecific T-wave changes. Echo is pending. Hemoglobin 9.9, hematocrit 30.7, white count 4400, and platelets 135,000. INR 1.5. Sodium 135, potassium 4.2, chloride 95, carbon dioxide 26, BUN 20, creatinine 3.63. Troponin I highest is 0.128 with CK-MB always normal. Cholesterol 147. Triglycerides were not performed, HDL 82, and LDL 54. Chest CTA revealed large pericardial effusion. No evidence of pulmonary embolism. No evidence of aortic dissection. IMPRESSION: 1. Finding of large pericardial effusion on chest CTA. She does have a paradox on examination. She has pleuritic chest pain. On interrogation of her ICD, her volume status has significantly increased. 2. Coronary artery disease, status post stent placement for in-stent restenosis in the mid right coronary artery in January 2018. This was a bare-metal stent due to her recurrent GI bleeds. 3. Elevated troponin, secondary to demand ischemia in her end-stage renal disease. 4. Severe left ventricular dysfunction with last ejection fraction of 20% to 25% . 5. Torsades de pointes, which seemed to be ischemically mediated and it has not recurred since stenting of the right coronary artery in-stent restenosis. 6. Status post dual-chamber ICD placement. 7. End-stage renal disease. 8. Anemia. 9. Recurrent gastrointestinal bleeds from arteriovenous malformations in the stomach and small intestine as well as internal and external hemorrhoids and diverticulosis. 10. Hypertension. 11. Hyperlipidemia under good control. 12. Cirrhosis. 13. Depression. 14. Peripheral vascular disease, status post carotid endarterectomy. 15. Sickle cell trait. 16. Iodine allergy with uncertain reaction, although she did undergo contrast load last night, I do not think she got any premedications. PLAN: Echocardiogram will be performed to better assess her pericardial effusion. She certainly may need to undergo placement of a pericardial window. Also on her ICD volume status on her ICD, there is a significant increase and more volume does need to be removed at dialysis. Job ID: [id number] [facility]
--- NOTE | 2018-07-25 12:49 | PDOC.PN ---
- Subjective Encounter Start Date: 07/25/18 Encounter Start Time: 10:15 Subjective: getting HD now, no sob or dizziness or chest pain -: feels better - Objective Resuscitation Status - Order Detail: 07/24/18 01:58 Resuscitation Status Routine Resuscitation Status: FULL: Full Resuscitation Discussed with: patient DAVID Reviewed: Yes Vital Signs & Weight: Vital Signs (12 hours) Temp Pulse Resp BP Pulse Ox 07/25/18 12:12 97.6 F 76 18 112/64 94 L 07/25/18 07:40 97 07/25/18 07:37 97.7 F 77 18 104/65 95 07/25/18 04:15 97.9 F 73 15 103/63 93 L Weight Weight 125 lb 11.2 oz I&O: 07/24/18 07/25/18 07/26/18 06:59 06:59 06:59 Intake Total 1250 0 Output Total 0 40 Balance 1250 -40 Result Diagrams: 07/23/18 21:05 07/23/18 21:05 Phys Exam - Physical Examination HEENT: PERRLA, moist MMs Neck: no JVD, supple Respiratory: no wheezing, no rales Cardiovascular: RRR, no significant murmur has reddy drain with serosang fluid Gastrointestinal: soft, non-tender, positive bowel sounds Musculoskeletal: no edema, pulses present Neurological: non-focal, moves all 4 limbs Psychiatric: normal affect, A&O x 3 Dx/Plan (1) Acute exacerbation of CHF (congestive heart failure) Code(s): I50.9 - HEART FAILURE, UNSPECIFIED Status: Acute Qualifiers: Heart failure type: systolic Qualified Code(s): I50.23 - Acute on chronic systolic (congestive) heart failure Comment: ef of 25%, class B (2) Pericardial effusion Code(s): I31.3 - PERICARDIAL EFFUSION (NONINFLAMMATORY) Status: Acute Comment: s/p drainage of 400ml with window (3) CAD (coronary artery disease) Code(s): I25.10 - ATHSCL HEART DISEASE OF [place] CORONARY ARTERY W/O ANG PCTRS Status: Chronic Qualifiers: Coronary Disease-Associated Artery/Lesion type: [place] artery [place] vs. transplanted heart: [place] heart Associated angina: without angina Qualified Code(s): I25.10 - Atherosclerotic heart disease of [place] coronary artery without angina pectoris Comment: prior Stent placement (4) ESRD (end stage renal disease) Code(s): N18.6 - END STAGE RENAL DISEASE Status: Chronic Comment: on HD (5) Anemia of renal disease Code(s): D63.1 - ANEMIA IN CHRONIC KIDNEY DISEASE Status: Chronic (6) COPD (chronic obstructive pulmonary disease) Status: Chronic Qualifiers: COPD type: unspecified COPD (7) Dyslipidemia Code(s): E78.5 - HYPERLIPIDEMIA, UNSPECIFIED Status: Chronic (8) ESRD (end stage renal disease) on dialysis Code(s): N18.6 - END STAGE RENAL DISEASE; Z99.2 - DEPENDENCE ON RENAL DIALYSIS Status: Chronic Comment: Maintainanace dialysis per nephrology service (9) PVD (peripheral vascular disease) Code(s): I73.9 - PERIPHERAL VASCULAR DISEASE, UNSPECIFIED Status: Chronic Comment: stable - Plan hemostable -: dc plan per CTS adv -: BP is better after drainage of pericardial effusion -: on coreg, lipitor. Lisinopril has been held due to low BP -: likely dc plan in am if stable and the drain is out * . Review of Systems - Medications/Allergies Allergies/Adverse Reactions: Allergies Allergy/AdvReac Type Severity Reaction Status Date / Time iodine Allergy Severe Verified 07/24/18 00:34 Penicillins Allergy Severe Verified 07/24/18 00:34 Medications: Current Medications Hydrocodone Bitart/Acetaminophen ([place] 5/325) 1 tab PO Q4H PRN PRN Reason: Mild-Moderate Pain (1-5) Hydrocodone Bitart/Acetaminophen ([place] 5/325) 2 tab PO Q4H PRN PRN Reason: Moderate to Severe Pain (6-10) Last Admin: 07/25/18 04:21 Dose: 2 tab Albuterol Sulfate (Proventil Hfa) 2 puff INH Q4H PRN PRN Reason: SOB &/or Wheezing Atorvastatin Calcium (Lipitor) 10 mg PO DAILY [facility] Last Admin: 07/24/18 09:03 Dose: 10 mg Carvedilol (Coreg) 6.25 mg PO QA-[facility] Last Admin: 07/24/18 09:01 Dose: 6.25 mg Cinacalcet (Sensipar) 30 mg PO DAILY [facility] Last Admin: 07/24/18 09:03 Dose: Not Given Epoetin Johnson (Procrit) 7,500 units SC Q7D [facility] Last Admin: 07/24/18 17:06 Dose: 7,500 units Fentanyl (Sublimaze) 25 mcg SLOW IVP ONE PRN PRN Reason: Severe Pain (7-10) Stop: 07/27/18 15:57 Folic Acid (Folvite) 0.5 mg PO DAILY [facility] Last Admin: 07/24/18 09:02 Dose: 0.5 mg Pantoprazole Sodium (Protonix) 40 mg PO QAM [facility] Last Admin: 07/24/18 09:02 Dose: 40 mg Sevelamer Carbonate (Renvela) 800 mg PO TID-[facility] Last Admin: 07/25/18 12:42 Dose: Not Given
[2018-07-25] MEDS: Carvedilol 6.25 MG TAB PO SCH (13:33)
[2018-07-25] MEDS: Folic Acid 1 MG TAB PO SCH (13:33)
[2018-07-25] MEDS: Cinacalcet HCl 30 MG TAB PO SCH (13:34)
[2018-07-25] MEDS: Atorvastatin Calcium 10 MG TAB PO SCH (13:34)
[2018-07-25] MEDS: Carvedilol 3.125 MG TAB PO SCH (18:01)
[2018-07-26 06:38] LABS: Anion Gap 21 mmol/L (10-20); BUN (Urea Nitrogen) 30 mg/dL (9.8-20.1); Calc. Creatinine Clearance 13 mL/min (70-130); Calcium 7.2 mg/dL (7.8-10.44); Carbon Dioxide 23 mmol/L (23-31); Chloride 96 mmol/L (98-107); Estimated GFR-MDRD 13; Glucose 75 mg/dL (80-115); Potassium 4.9 mmol/L (3.5-5.1); Sodium 135 mmol/L (136-145)
[2018-07-26 07:39] LABS: Hemoglobin 10.5 g/dL (12.0-16.0); Mean Corpuscular HGB CONC 32.4 g/dL (32.0-36.0); Mean Corpuscular Hemoglobin 32.8 pg (27.0-31.0); Mean Platelet Volume 8.5 fL (7.4-10.4); Platelet Count 157 thou/uL (130-400); RBC Distribution Width 16.9 % (11.5-14.5); Red Blood Cell (RBC) Count 3.21 mill/uL (4.20-5.40); White Blood Cell (WBC) Count 3.9 thou/uL (4.8-10.8)
[2018-07-26 08:03] LABS: Band 9 % (5-11); Eosinophils 2 % (0-10); Hypochromia SLIGHT = 6-15 cells (100X) (0-5/hpf); Lymphocytes 21 % (21-51); MDiff Complete? YES; Monocytes 6 % (0-10); Neutrophil 61 % (42-75); PLT Morphology Comment Appears Adequate; Polychromasia SLIGHT = 2-3 cells (100X) (0-2/hpf); Target Cells SLIGHT = 2-5 cells (100X) (0-1/hpf)
[2018-07-26] MEDS: Folic Acid 1 MG TAB PO SCH (09:07)
[2018-07-26] MEDS: Cinacalcet HCl 30 MG TAB PO SCH (09:07)
[2018-07-26] MEDS: Carvedilol 3.125 MG TAB PO SCH ×2 (09:07→18:02)
[2018-07-26] MEDS: Sevelamer Carbonate 800 MG TAB PO SCH ×3 (09:07→18:02)
[2018-07-26] MEDS: Atorvastatin Calcium 10 MG TAB PO SCH (09:08)
--- NOTE | 2018-07-26 10:48 | PDOC.PN ---
- Subjective Encounter Start Date: 07/26/18 Encounter Start Time: 10:00 Subjective: feels a bit dizzy when she gets up to amb -: no chest pain -: had small amount of blood with stool this am, says it was not much - Objective Resuscitation Status - Order Detail: 07/24/18 01:58 Resuscitation Status Routine Resuscitation Status: FULL: Full Resuscitation Discussed with: patient DAVID Reviewed: Yes Vital Signs & Weight: Vital Signs (12 hours) Temp Pulse Resp BP BP Pulse Ox 07/26/18 07:30 97.5 F L 73 18 113/57 L 98 07/26/18 04:00 98/61 07/26/18 03:16 97.6 F 74 14 94 L Weight Weight 125 lb 11.2 oz I&O: 07/25/18 07/26/18 07/27/18 06:59 06:59 06:59 Intake Total 0 720 Output Total 40 170 Balance -40 550 Result Diagrams: 07/26/18 05:24 07/26/18 05:24 Phys Exam - Physical Examination HEENT: PERRLA, moist MMs Neck: no nodes, no JVD Respiratory: no wheezing, no rales Cardiovascular: RRR, no significant murmur pericardial drain is removed this am Gastrointestinal: soft, non-tender, positive bowel sounds Musculoskeletal: no edema, pulses present Neurological: non-focal, moves all 4 limbs Psychiatric: normal affect, A&O x 3 Dx/Plan (1) Acute exacerbation of CHF (congestive heart failure) Code(s): I50.9 - HEART FAILURE, UNSPECIFIED Status: Acute Qualifiers: Heart failure type: systolic Qualified Code(s): I50.23 - Acute on chronic systolic (congestive) heart failure Comment: ef of 25%, class B (2) Pericardial effusion Code(s): I31.3 - PERICARDIAL EFFUSION (NONINFLAMMATORY) Status: Acute Comment: s/p drainage of 400ml with window (3) CAD (coronary artery disease) Code(s): I25.10 - ATHSCL HEART DISEASE OF [place] CORONARY ARTERY W/O ANG PCTRS Status: Chronic Qualifiers: Coronary Disease-Associated Artery/Lesion type: [place] artery [place] vs. transplanted heart: [place] heart Associated angina: without angina Qualified Code(s): I25.10 - Atherosclerotic heart disease of [place] coronary artery without angina pectoris Comment: prior Stent placement (4) ESRD (end stage renal disease) Code(s): N18.6 - END STAGE RENAL DISEASE Status: Chronic Comment: on HD (5) Anemia of renal disease Code(s): D63.1 - ANEMIA IN CHRONIC KIDNEY DISEASE Status: Chronic (6) COPD (chronic obstructive pulmonary disease) Status: Chronic Qualifiers: COPD type: unspecified COPD (7) Dyslipidemia Code(s): E78.5 - HYPERLIPIDEMIA, UNSPECIFIED Status: Chronic (8) ESRD (end stage renal disease) on dialysis Code(s): N18.6 - END STAGE RENAL DISEASE; Z99.2 - DEPENDENCE ON RENAL DIALYSIS Status: Chronic Comment: Maintainanace dialysis per nephrology service (9) PVD (peripheral vascular disease) Code(s): I73.9 - PERIPHERAL VASCULAR DISEASE, UNSPECIFIED Status: Chronic Comment: stable - Plan sbp dropped down to 80's -: will give 250ml iv normal saline bolus as pt is symptomatic -: midodrine 5mg x 1 dose now -: h/h in am -: d/w , initially was to al but she developed dizziness now. * . Review of Systems - Medications/Allergies Allergies/Adverse Reactions: Allergies Allergy/AdvReac Type Severity Reaction Status Date / Time iodine Allergy Severe Verified 07/24/18 00:34 Penicillins Allergy Severe Verified 07/24/18 00:34 Medications: Current Medications Hydrocodone Bitart/Acetaminophen ([place] 5/325) 1 tab PO Q4H PRN PRN Reason: Mild-Moderate Pain (1-5) Hydrocodone Bitart/Acetaminophen ([place] 5/325) 2 tab PO Q4H PRN PRN Reason: Moderate to Severe Pain (6-10) Last Admin: 07/25/18 18:00 Dose: 2 tab Albuterol Sulfate (Proventil Hfa) 2 puff INH Q4H PRN PRN Reason: SOB &/or Wheezing Atorvastatin Calcium (Lipitor) 10 mg PO DAILY [facility] Last Admin: 07/26/18 09:08 Dose: 10 mg Carvedilol (Coreg) 3.125 mg PO BID-[facility] Last Admin: 07/26/18 09:07 Dose: 3.125 mg Cinacalcet (Sensipar) 30 mg PO DAILY [facility] Last Admin: 07/26/18 09:07 Dose: 30 mg Epoetin Johnson (Procrit) 7,500 units SC Q7D [facility] Last Admin: 07/24/18 17:06 Dose: 7,500 units Fentanyl (Sublimaze) 25 mcg SLOW IVP ONE PRN PRN Reason: Severe Pain (7-10) Stop: 07/27/18 15:57 Folic Acid (Folvite) 0.5 mg PO DAILY [facility] Last Admin: 07/26/18 09:07 Dose: 0.5 mg Pantoprazole Sodium (Protonix) 40 mg PO QAM [facility] Last Admin: 07/26/18 09:08 Dose: 40 mg Sevelamer Carbonate (Renvela) 800 mg PO TID-[facility] Last Admin: 07/26/18 09:07 Dose: 800 mg
[2018-07-26] MEDS ORDERED: Midodrine HCl 5 MG TAB PO SCH (11:00)
--- NOTE | 2018-07-26 11:05 | PRG ---
DATE OF SERVICE: 07/26/2018 RENAL MEDICINE SUBJECTIVE: Ms. Sullivan is a 63-year-old black female, who was admitted for shortness of breath. She was found to have significant pericardial effusion. She was seen by the Cardiothoracic Surgery Service, Dr. Magana, and she underwent a pericardial window with drainage. A pericardial biopsy was also done. She is feeling fine this morning. She still has episodes of low blood pressure. Currently BP is 98/61. No other complaints. No chest pain or shortness of breath. OBJECTIVE: VITAL SIGNS: Blood pressure 98/61, heart rate 74, respiratory rate 14, temperature 97.6, and pulse ox 94%. GENERAL: Awake, alert, sitting comfortable, not in overt distress. SKIN: Adequate turgor. HEENT: She has a pinkish conjunctivae. Anicteric sclerae. No neck mass. No carotid bruits. No JVD. CHEST: No deformities. LUNGS: Clear breath sounds. No wheezing. No crackles. HEART: Normal sinus rhythm. No murmur. No gallops. No rubs. ABDOMEN: Globular, soft, nontender. No masses. EXTREMITIES: No edema. MEDICATIONS: Medications of 07/26/2018, reviewed. LABORATORY DATA: Laboratories of 07/26/2018, white count 3.9, hemoglobin 10.5. Sodium 135, potassium 4.9, chloride 96, carbon dioxide 23, BUN 30, creatinine 4.15, glucose 75, calcium 7.2. ASSESSMENT AND PLAN: 1. End-stage renal disease, stable, tolerating current hemodialysis regimen. No dialysis today. Continue 3 times a week hemodialysis in this patient. Fluid removal only as tolerated. 2. Pericardial effusion with early tamponade, status post pericardial window placement, doing well. Surgery is following. 3. Chronic anemia, currently on weekly Epogen. 4. Overall, agree with current management. Recheck CBC in a.m. Job ID: [id number]
[2018-07-26] MEDS ORDERED: Sodium Chloride 0.9% 250 ML IV SCH ×2 (11:15→13:15)
[2018-07-27 05:45] LABS: Hemoglobin 10.2 g/dL (12.0-16.0); Mean Corpuscular HGB CONC 32.6 g/dL (32.0-36.0); Mean Corpuscular Hemoglobin 33.1 pg (27.0-31.0); Mean Platelet Volume 7.9 fL (7.4-10.4); Platelet Count 155 thou/uL (130-400); RBC Distribution Width 17.1 % (11.5-14.5); Red Blood Cell (RBC) Count 3.09 mill/uL (4.20-5.40); White Blood Cell (WBC) Count 3.5 thou/uL (4.8-10.8)
[2018-07-27 05:46] LABS: Band 5 % (5-11); Eosinophils 3 % (0-10); Lymphocytes 24 % (21-51); MDiff Complete? YES; Monocytes 8 % (0-10); Neutrophil 60 % (42-75); Nucleated RBC 1 % (0)
[2018-07-27] MEDS ORDERED: Midodrine HCl 5 MG TAB PO SCH (09:00)
[2018-07-27] MEDS: Carvedilol 3.125 MG TAB PO SCH (09:30)
[2018-07-27] MEDS: Sevelamer Carbonate 800 MG TAB PO SCH ×2 (09:30→12:17)
[2018-07-27] MEDS: Cinacalcet HCl 30 MG TAB PO SCH (09:30)
[2018-07-27] MEDS: Atorvastatin Calcium 10 MG TAB PO SCH (09:31)
[2018-07-27] MEDS: Folic Acid 1 MG TAB PO SCH (09:31)
--- NOTE | 2018-07-27 10:03 | PRG ---
DATE OF SERVICE: 07/27/2018 RENAL MEDICINE SUBJECTIVE: Ms. Sullivan is a 63-year-old black female with ESRD and followed by the Renal Service for her maintenance hemodialysis. She is tolerating said dialysis. Please note, she was initially admitted for shortness of breath. She was found to have significant pericardial effusion with early tamponade. She underwent a pericardial window placement and tube placement. The tube has been discontinued by her cardiothoracic surgeon. She was about to go home yesterday, but she was feeling dizzy. Blood pressure was on the low side. Case was discussed with the hospitalist and she has been started on midodrine 5 mg daily. No other complaints today. She is feeling a little better. No chest pain or shortness of breath. OBJECTIVE: VITAL SIGNS: Blood pressure 107/67, heart rate 71, respiratory rate 15, temperature 97.6, and pulse ox 94%. GENERAL: Noted to be awake, alert, comfortable sitting, not in distress. SKIN: Adequate turgor. HEENT: Slightly pale conjunctivae. Anicteric sclerae. No neck mass. No carotid bruits. No JVD. CHEST: No deformities. LUNGS: Decreased breath sounds. HEART: Normal sinus rhythm. No murmurs. No gallops. No rubs. ABDOMEN: Globular, soft, and nontender. No masses. EXTREMITIES: No edema. MEDICATIONS: Medications of July 27, 2018, reviewed. LABORATORY DATA: Laboratories of July 27, 2018; white count 3.5, hemoglobin 10.2. ASSESSMENT AND PLAN: 1. Anemia-on weekly Epogen. P.r.n. blood transfusion. 2. Pericardial tamponade clinically improved status post pericardial window placement. 3. Hypotension, slightly improved this morning. Continue midodrine for BP support. 4. End-stage renal disease, stable. No indication for any emergent hemodialysis. I have scheduled her on a Thursday, Thursday, Thursday regular dialysis regimen. 5. Overall, agree with current management. Job ID: [id number]
--- NOTE | 2018-07-27 10:59 | PDOC.PN ---
- Subjective Encounter Start Date: 07/27/18 Encounter Start Time: 09:30 Subjective: a bit lethargic but feels good -: is moving all extremities -: walked to restroom this am with no dizziness - Objective Resuscitation Status - Order Detail: 07/24/18 01:58 Resuscitation Status Routine Resuscitation Status: FULL: Full Resuscitation Discussed with: jessica HERNANDEZ Reviewed: Yes Vital Signs & Weight: Vital Signs (12 hours) Temp Pulse Resp BP Pulse Ox 07/27/18 07:58 97.6 F 71 15 107/67 94 L 07/27/18 04:00 97.6 F 70 18 99/52 L 94 L Weight Weight 125 lb 11.2 oz I&O: 07/26/18 07/27/18 07/28/18 06:59 06:59 06:59 Intake Total 720 900 Output Total 170 Balance 550 900 Result Diagrams: 07/27/18 04:27 07/26/18 05:24 Phys Exam - Physical Examination HEENT: PERRLA, moist MMs Neck: no JVD, supple Respiratory: no wheezing, no rales Cardiovascular: RRR, no significant murmur Gastrointestinal: soft, non-tender, positive bowel sounds Musculoskeletal: no edema, pulses present Neurological: non-focal, moves all 4 limbs Psychiatric: normal affect, A&O x 3 Dx/Plan (1) Acute exacerbation of CHF (congestive heart failure) Code(s): I50.9 - HEART FAILURE, UNSPECIFIED Status: Acute Qualifiers: Heart failure type: systolic Qualified Code(s): I50.23 - Acute on chronic systolic (congestive) heart failure Comment: ef of 25%, class B (2) Pericardial effusion Code(s): I31.3 - PERICARDIAL EFFUSION (NONINFLAMMATORY) Status: Acute Comment: s/p drainage of 400ml with window (3) CAD (coronary artery disease) Code(s): I25.10 - ATHSCL HEART DISEASE OF [place] CORONARY ARTERY W/O ANG PCTRS Status: Chronic Qualifiers: Coronary Disease-Associated Artery/Lesion type: [place] artery [place] vs. transplanted heart: [place] heart Associated angina: without angina Qualified Code(s): I25.10 - Atherosclerotic heart disease of [place] coronary artery without angina pectoris Comment: prior Stent placement (4) ESRD (end stage renal disease) Code(s): N18.6 - END STAGE RENAL DISEASE Status: Chronic Comment: on HD (5) Anemia of renal disease Code(s): D63.1 - ANEMIA IN CHRONIC KIDNEY DISEASE Status: Chronic (6) COPD (chronic obstructive pulmonary disease) Status: Chronic Qualifiers: COPD type: unspecified COPD (7) Dyslipidemia Code(s): E78.5 - HYPERLIPIDEMIA, UNSPECIFIED Status: Chronic (8) ESRD (end stage renal disease) on dialysis Code(s): N18.6 - END STAGE RENAL DISEASE; Z99.2 - DEPENDENCE ON RENAL DIALYSIS Status: Chronic Comment: Maintainanace dialysis per nephrology service (9) PVD (peripheral vascular disease) Code(s): I73.9 - PERIPHERAL VASCULAR DISEASE, UNSPECIFIED Status: Chronic Comment: stable (10) Hypotension Status: Acute Qualifiers: Hypotension type: unspecified hypotension type Qualified Code(s): I95.9 - Hypotension, unspecified - Plan is on midodrine for pressure support -: will obtain ct brain to r/o cva -: her BP improved after pericardiocentesis but then has started to trend low -: again, continue low dose coreg for chf, is off lisinopril due to low sbp -: to ambulate as tolerated, dc home if ct is -ve and she is asymptomatic * . Review of Systems - Medications/Allergies Allergies/Adverse Reactions: Allergies Allergy/AdvReac Type Severity Reaction Status Date / Time iodine Allergy Severe Verified 07/24/18 00:34 Penicillins Allergy Severe Verified 07/24/18 00:34 Medications: Current Medications Hydrocodone Bitart/Acetaminophen ([place] 5/325) 1 tab PO Q4H PRN PRN Reason: Mild-Moderate Pain (1-5) Hydrocodone Bitart/Acetaminophen ([place] 5/325) 2 tab PO Q4H PRN PRN Reason: Moderate to Severe Pain (6-10) Last Admin: 07/25/18 18:00 Dose: 2 tab Albuterol Sulfate (Proventil Hfa) 2 puff INH Q4H PRN PRN Reason: SOB &/or Wheezing Atorvastatin Calcium (Lipitor) 10 mg PO DAILY [facility] Last Admin: 07/27/18 09:31 Dose: 10 mg Carvedilol (Coreg) 3.125 mg PO BID-[facility] Last Admin: 07/27/18 09:30 Dose: 3.125 mg Cinacalcet (Sensipar) 30 mg PO DAILY [facility] Last Admin: 07/27/18 09:30 Dose: 30 mg Epoetin [place] (Procrit) 7,500 units SC Q7D [facility] Last Admin: 07/24/18 17:06 Dose: 7,500 units Fentanyl (Sublimaze) 25 mcg SLOW IVP ONE PRN PRN Reason: Severe Pain (7-10) Stop: 07/27/18 15:57 Folic Acid (Folvite) 0.5 mg PO DAILY [facility] Last Admin: 07/27/18 09:31 Dose: 0.5 mg Midodrine (Proamatine) 5 mg PO DAILY [facility] Last Admin: 07/27/18 09:30 Dose: 5 mg Pantoprazole Sodium (Protonix) 40 mg PO QAM [facility] Last Admin: 07/27/18 09:30 Dose: 40 mg Sevelamer Carbonate (Renvela) 800 mg PO TID-WM [facility] Last Admin: 07/27/18 09:30 Dose: 800 mg Sodium Chloride (Flush - Normal Saline) 10 ml IVF Q12HR [facility] Last Admin: 07/27/18 09:31 Dose: Not Given Sodium Chloride (Flush - Normal Saline) 10 ml IVF PRN PRN PRN Reason: Saline Flush
[2018-07-27 12:17] VITALS: BP 123/74; TEMP 97.3
--- NOTE | 2018-07-27 14:25 | CT ---
CT BRAIN WITHOUT CONTRAST: Date: 07/27/18 HISTORY: CVA. FINDINGS: Comparison made with exam of 12/21/16. No evidence of infarct, hemorrhage, midline shift, or abnormal extra-axial fluid collections are seen . The ventricular size is normal and the basilar cisterns are patent. The bony calvarium is intact. T he visualized paranasal sinuses and mastoid air cells are well aerated. IMPRESSION: No CT evidence of acute intracranial process. POS: [facility]
== END 2018-07-27 17:10 | disposition home or self-care (01) | DRG 314 ==
LOC: ERS 18:32 → 2SW 21:00 → OBSVTOIN 07-24 06:14 → 2NO 07-24 11:46
PROVIDERS: ADMIT Family Medicine; ATTEND Family Medicine
PROC: 0W9D3ZX Drainage of Pericardial Cavity, Percutaneous Approach, Diagnostic (ICD-10-PCS; principal; 2018-07-24)
PROC: 5A1D70Z Performance of Urinary Filtration, Intermittent, Less than 6 Hours Per Day (ICD-10-PCS; 2018-07-24)
DX: I31.3 Pericardial effusion (noninflammatory) (principal); N18.6 End stage renal disease; I50.23 Acute on chronic systolic (congestive) heart failure; I13.2 Hypertensive heart and chronic kidney disease with heart failure and with stage 5 chronic kidney disease, or end stage renal disease; K92.2 Gastrointestinal hemorrhage, unspecified; Z99.2 Dependence on renal dialysis; I25.5 Ischemic cardiomyopathy; I25.10 Atherosclerotic heart disease of native coronary artery without angina pectoris; D57.3 Sickle-cell trait; Z95.810 Presence of automatic (implantable) cardiac defibrillator; D63.1 Anemia in chronic kidney disease; E78.5 Hyperlipidemia, unspecified; I73.9 Peripheral vascular disease, unspecified; K74.60 Unspecified cirrhosis of liver; F32.9 Major depressive disorder, single episode, unspecified
CPT/HCPCS: 36415; 36416; 70450; 71275; 80048; 80053; 80061; 82533; 82553; 84484; 85025; 85060; 85610; 85730; 87070; 87205; 87340; 89051; 93005; 93306; 96361; 96374; 96375; A4216; C9113; J0690; J1200; J2001; J2370; J2704; J2930; J3010; Q4081; S0028

== ENCOUNTER 2018-08-13 16:50 | Inpatient (IN) | payer MEDICARE, OTHER ==
[2018-08-13 17:30] LABS: %Lymphocytes 30.2 % (21.0-51.0); %Neutrophils 57.9 % (42.0-75.0); Hemoglobin 7.1 g/dL (12.0-16.0); Mean Corpuscular HGB CONC 33.3 g/dL (32.0-36.0); Mean Corpuscular Hemoglobin 35.1 pg (27.0-31.0); Platelet Count 278 thou/uL (130-400); RBC Distribution Width 17.5 % (11.5-14.5); Red Blood Cell (RBC) Count 2.01 mill/uL (4.20-5.40)
[2018-08-13 17:31] LABS: #Eosinphils 0.1 thou/uL (0.0-0.7); #Lymphocytes 1.2 thou/uL (1.20-3.40); #Monocytes 0.3 thou/uL (0.11-0.59); #Neutrophils 2.3 thou/uL (1.40-6.50); %Basophils 1.2 % (0.0-1.0); %Eosinophils 3.4 % (0.0-10.0); %Monocytes 7.3 % (0.0-10.0)
[2018-08-13 17:50] LABS: ALT (SGPT) 10 U/L (8-55); AST (SGOT) 18 U/L (5-34); Albumin 3.8 g/dL (3.4-4.8); Alkaline Phosphatase 147 U/L (40-150); Anion Gap 15 mmol/L (10-20); BUN (Urea Nitrogen) 16 mg/dL (9.8-20.1); Bilirubin, Total 0.3 mg/dL (0.2-1.2); CK (CPK) 30 U/L (29-168); Calc. Creatinine Clearance 0 mL/min (70-130); Calcium 8.1 mg/dL (7.8-10.44); Carbon Dioxide 31 mmol/L (23-31); Chloride 96 mmol/L (98-107); Estimated GFR-MDRD 25; Globulin 3.5 g/dL (2.4-3.5); Glucose 122 mg/dL (80-115); Potassium 3.3 mmol/L (3.5-5.1); Protein, Total 7.3 g/dL (6.0-8.3); Sodium 139 mmol/L (136-145)
[2018-08-13 18:28] LABS: CKMB 0.7 ng/mL (0-6.6)
--- NOTE | 2018-08-13 19:53 | RAD ---
EXAM: CHEST ONE VIEW 08/13/18 HISTORY: Dyspnea, dizziness, bodyaches, weakness. COMPARISON: 07/23/18. FINDINGS: Cardiomegaly. Left ICD. Old granulomatous disease. Mild chronic changes in the right base. No signifi cant pleural effusions or evidence for congestive heart failure. IMPRESSION: Cardiomegaly without evidence for congestive heart failure. Stable chronic changes in the right base. Old granulomatous disease. Atherosclerosis of the aorta. Left ICD. POS: [facility]
[2018-08-13] MEDS ORDERED: Calcium Carbonate 500 MG ChewTAB PO PRN (20:29)
[2018-08-13] MEDS ORDERED: Acetaminophen 325 MG TAB PO PRN (20:29)
[2018-08-13] MEDS ORDERED: Zolpidem Tartrate 5 MG TAB PO PRN (20:29)
[2018-08-13] MEDS ORDERED: Ondansetron ODT 4 MG TAB PO PRN (20:29)
[2018-08-13] MEDS ORDERED: Ondansetron PF 4 MG/2 ML Vial IVP PRN (20:29)
[2018-08-13] MEDS ORDERED: Bisacodyl 5 MG TAB PO PRN (20:29)
[2018-08-13] MEDS ORDERED: Senokot S 8.6-50 MG TAB PO PRN (20:29)
[2018-08-13] MEDS ORDERED: Acetaminophen 650 MG Suppository PR PRN (20:29)
[2018-08-13] MEDS ORDERED: Non-Formulary Item 1 EACH (Acetaminophen [Tylenol] 650 MG) PO PRN (20:31)
[2018-08-13] MEDS ORDERED: Famotidine/PF 20 mg/2ml Vial SLOW IVP SCH (21:00)
[2018-08-13] MEDS ORDERED: Sevelamer Carbonate 800 MG TAB PO PRN (21:06)
[2018-08-13 21:23] LABS: CKMB 0.6 ng/mL (0-6.6)
[2018-08-13 21:34] VITALS: BMI 23.1
[2018-08-13] MEDS: Heparin 5,000 UNITS/ML VIAL SC SCH (22:34)
[2018-08-14 05:13] LABS: #Basophils 0.1 thou/uL (0.0-0.2); #Eosinphils 0.2 thou/uL (0.0-0.7); #Monocytes 0.3 thou/uL (0.11-0.59); #Neutrophils 1.6 thou/uL (1.40-6.50); %Basophils 1.9 % (0.0-1.0); %Eosinophils 5.9 % (0.0-10.0); %Lymphocytes 31.7 % (21.0-51.0); %Monocytes 9.4 % (0.0-10.0); %Neutrophils 51.1 % (42.0-75.0); Hemoglobin 7.6 g/dL (12.0-16.0); Mean Corpuscular HGB CONC 33.3 g/dL (32.0-36.0); Mean Corpuscular Hemoglobin 33.5 pg (27.0-31.0); Mean Platelet Volume 6.7 fL (7.4-10.4); Platelet Count 208 thou/uL (130-400); RBC Distribution Width 18.3 % (11.5-14.5); Red Blood Cell (RBC) Count 2.27 mill/uL (4.20-5.40); White Blood Cell (WBC) Count 3.2 thou/uL (4.8-10.8)
[2018-08-14 05:26] LABS: Anion Gap 13 mmol/L (10-20); BUN (Urea Nitrogen) 21 mg/dL (9.8-20.1); Calc. Creatinine Clearance 15 mL/min (70-130); Calcium 7.4 mg/dL (7.8-10.44); Carbon Dioxide 30 mmol/L (23-31); Chloride 99 mmol/L (98-107); Estimated GFR-MDRD 17; Glucose 113 mg/dL (80-115); Potassium 3.1 mmol/L (3.5-5.1); Sodium 139 mmol/L (136-145)
[2018-08-14] MEDS ORDERED: Carvedilol 3.125 MG TAB PO SCH (08:00)
[2018-08-14] MEDS: Heparin 5,000 UNITS/ML VIAL SC SCH ×2 (08:08→21:21)
[2018-08-14] MEDS: Atorvastatin Calcium 10 MG TAB PO SCH (08:09)
[2018-08-14] MEDS: Midodrine HCl 5 MG TAB PO SCH (08:09)
[2018-08-14] MEDS: Sevelamer Carbonate 800 MG TAB PO SCH ×3 (08:09→16:00)
[2018-08-14] MEDS: Cinacalcet HCl 30 MG TAB PO SCH (08:09)
[2018-08-14] MEDS: Folic Acid 1 MG TAB PO SCH (08:10)
--- NOTE | 2018-08-14 08:51 | HP ---
CHIEF COMPLAINT: Weakness and dizziness. HISTORY OF PRESENT ILLNESS: This is a 63-year-old female with past medical history of end-stage renal disease, on hemodialysis, Mondays, Wednesdays, and Fridays; coronary artery disease; COPD; peripheral vascular disease, presenting with dizziness, lightheadedness, fatigue, and shortness of breath. The patient is on dialysis on Mondays, Wednesdays, and Fridays. The patient states that she was not feeling right after dialysis. Therefore, the patient had labs drawn and the patient's hemoglobin was 7. Per the patient, a week ago, the patient had pericardiocentesis for edema that was found around the heart. At this point, the patient denies any shortness of breath, cough, fever, dizziness, headaches, chest pain, palpitations, abdominal pain, melena, or hematochezia. REVIEW OF SYSTEMS: All systems are reviewed and are negative at this time. PAST MEDICAL HISTORY: Congestive heart failure; coronary artery disease, status post stents; hypertension; asthma; end-stage renal disease on hemodialysis, Mondays, Wednesdays, and Fridays; chronic anemia. PAST SURGICAL HISTORY: Hemorrhoidectomy, removal of stomach lesions, left upper arm AV fistula. PSYCHIATRIC HISTORY: No previous psych history. SOCIAL HISTORY: The patient lives at home. The patient denies alcohol use. Denies any illicit drug use. The patient smokes cigarettes. The patient's states that she smokes about 9 to 10 cigarettes per day. She was not smoking like this for the past 2 years. ALLERGIES: THE PATIENT IS ALLERGIC TO PENICILLIN AND IODINE. CURRENT MEDICATIONS: The patient takes, 1. Lisinopril 20 p.o. daily. 2. Pantoprazole 40 mg. 3. Ventolin. 4. Acetaminophen 325 mg p.r.n. 5. Aspirin 81 mg daily. 6. Atorvastatin 10 mg daily. 7. Carvedilol 3.125 b.i.d. 8. Cinacalcet 30 mg daily. 9. Folic acid. 10. Midodrine 5 mg daily. 11. Renvela 800 mg t.i.d. ALLERGIES: THE PATIENT IS ALLERGIC TO PENICILLINS AND IODINE. PHYSICAL EXAMINATION: VITAL SIGNS: The patient's blood pressure is 93/57, pulse of 73, respiratory rate of 14, temperature is 98.3, oxygen saturation is 100% on room air. GENERAL: The patient appears very cachectic, lying in bed, does not appear to be in any acute distress, able to speak to me in full sentences. Very pleasant. HEENT: Normocephalic and atraumatic. Pupils are equally round and reactive to light. Extraocular movements are intact. No scleral icterus. No conjunctival pallor. Mucous membranes are moist. NECK: Trachea is midline. Full range of motion. No JVD is appreciated. LUNGS: Clear to auscultation bilaterally. No wheezing, no rales, no rhonchi appreciated at the anterior lung montalvo or at the posterior lung montalvo. CARDIAC: Positive S1 and S2. Regular rate and rhythm. No murmurs, no gallops, no rubs appreciated. ABDOMEN: Soft, nontender, and nondistended. No peritoneal signs. Positive bowel sounds in all quadrants. EXTREMITIES: The patient has a left upper arm fistula and has a palpable thrill. Good pulses bilaterally at the radial aspect. Good strength at the upper extremities bilaterally. Lower extremities, no edema noted. A 5/5 strength and good pulses at the DP region. NEUROLOGIC: Cranial nerves 2 through 12 grossly intact. No neurologic deficits noted. SKIN: Warm, dry, and intact. PSYCH: Normal affect. Alert and oriented x3. DIAGNOSTIC DATA: EKG that was done, showed left axis deviation with some inverted T-waves and sinus. Chest x-ray showed no acute process. LABORATORY DATA: WBC is 4.0, hemoglobin is 7.1, hematocrit is 21.2, MCV is 105.0, platelet is 278 for the platelets. Sodium is 139, potassium is 3.3, chloride is 96, carbon dioxide of 31, anion gap of 15, BUN is 16, creatinine is 2.41, glucose is 122. Troponins are 0.094, 0.081 respectively. BNP is 3147.1. ASSESSMENT AND PLAN: This is a 63-year-old female on hemodialysis Mondays, Wednesdays, and Fridays, being admitted for, 1. Symptomatic anemia. At this point, the patient's hemoglobin is 7. The patient is going to be transfused 1 unit. We have consulted Nephrology. The patient will benefit from possible epoetin due to the patient having anemia likely due to chronic inflammation. At this point, we will continue to monitor the patient, and we will follow up with teacher of the deaf's recommendation. We will follow up on morning labs. We will continue to monitor the patient closely. 2. End-stage renal disease, on hemodialysis. The patient is due for dialysis on Thursday. At this time, the patient does not require any dialysis. Nephrology is on consult. 3. Coronary artery disease, currently stable. We will continue the patient on her home medications. 4. History of chronic obstructive pulmonary disease. At this time, the patient is stable. We will continue the patient on home medications. We will continue DuoNeb treatment. 5. Peripheral vascular disease, stable at this time. We will continue the patient on home medications. 6. Deep vein thrombosis/gastrointestinal prophylaxis. Job ID: [id number]
[2018-08-14] MEDS ORDERED: Famotidine 20 MG TAB PO SCH (09:00)
[2018-08-14] MEDS ORDERED: Famotidine/PF 20 mg/2ml Vial SLOW IVP SCH (09:00)
[2018-08-14] MEDS: Dextrose 5 % And 0.9 % NaCl 1,000 ML IV SCH (10:38)
[2018-08-14] MEDS: Pantoprazole 80 MG in Sodium Chloride 0.9% 100 ML IVP SCH ×2 (10:54→21:30)
[2018-08-14 10:56] LABS: Hemoglobin 7.7 g/dL (12.0-16.0)
--- NOTE | 2018-08-14 10:58 | PDOC.PN ---
- Subjective Encounter Start Date: 08/14/18 Encounter Start Time: 08:15 Subjective: feels weak, has had off and on bright blood in her stools -: no hematemesis -: prior h/o egd/colonoscopy for severe anemia - Objective Resuscitation Status - Order Detail: 08/13/18 20:29 Resuscitation Status Routine Resuscitation Status: FULL: Full Resuscitation MAR Reviewed: Yes Vital Signs & Weight: Vital Signs (12 hours) Temp Pulse Pulse Resp BP BP Pulse Ox 08/14/18 07:40 98.4 F 75 16 96/54 L 98 08/14/18 04:15 98.7 F 92 12 109/58 L 98 08/14/18 01:10 98.2 F 74 15 113/56 L 97 Weight Weight 122 lb 8 oz I&O: 08/13/18 08/14/18 08/15/18 06:59 06:59 06:59 Intake Total 610 Output Total 0 Balance 610 Result Diagrams: 08/14/18 04:44 08/14/18 04:44 Phys Exam - Physical Examination HEENT: PERRLA, moist MMs Neck: no JVD, supple Respiratory: no wheezing, no rales Cardiovascular: RRR, no significant murmur Gastrointestinal: soft, non-tender, positive bowel sounds Musculoskeletal: no edema, pulses present Neurological: non-focal, moves all 4 limbs Psychiatric: normal affect, A&O x 3 Dx/Plan (1) Anemia due to acute blood loss Code(s): D62 - ACUTE POSTHEMORRHAGIC ANEMIA Status: Acute (2) Symptomatic anemia Code(s): D64.9 - ANEMIA, UNSPECIFIED Status: Acute (3) CAD (coronary artery disease) Code(s): I25.10 - ATHSCL HEART DISEASE OF [place] CORONARY ARTERY W/O ANG PCTRS Status: Chronic Qualifiers: Coronary Disease-Associated Artery/Lesion type: [place] artery [place] vs. transplanted heart: [place] heart Associated angina: without angina Qualified Code(s): I25.10 - Atherosclerotic heart disease of [place] coronary artery without angina pectoris Comment: prior Stent placement (4) COPD (chronic obstructive pulmonary disease) Status: Chronic Qualifiers: COPD type: chronic bronchitis (5) Dyslipidemia Code(s): E78.5 - HYPERLIPIDEMIA, UNSPECIFIED Status: Chronic (6) ESRD (end stage renal disease) on dialysis Code(s): N18.6 - END STAGE RENAL DISEASE; Z99.2 - DEPENDENCE ON RENAL DIALYSIS Status: Chronic Comment: Maintainanace dialysis per nephrology service (7) PVD (peripheral vascular disease) Code(s): I73.9 - PERIPHERAL VASCULAR DISEASE, UNSPECIFIED Status: Chronic Comment: stable (8) Pulmonary hypertension Code(s): I27.20 - PULMONARY HYPERTENSION, UNSPECIFIED Status: Chronic - Plan prior h/o avm's in stomach in 2018 -: change status to inpt, continue midodrine, gentle iv hydration -: got 1 unit prbc, Hb still around 7g, hold aspirin -: had HD on thursday -: npo, protonix drip, consult * . Review of Systems - Medications/Allergies Allergies/Adverse Reactions: Allergies Allergy/AdvReac Type Severity Reaction Status Date / Time iodine Allergy Severe Verified 08/13/18 21:21 Penicillins Allergy Severe Verified 08/13/18 21:21 Medications: Current Medications Acetaminophen (Tylenol) 650 mg PO Q4H PRN PRN Reason: Headache/Fever/Mild Pain (1-3) Acetaminophen (Tylenol) 650 mg [place] Q4H PRN PRN Reason: Headache/Fever/Mild Pain (1-3) Aspirin (Aspirin Chewable) 81 mg PO DAILY [facility] Last Admin: 08/14/18 08:08 Dose: 81 mg Atorvastatin Calcium (Lipitor) 10 mg PO DAILY [facility] Last Admin: 08/14/18 08:09 Dose: 10 mg Bisacodyl (Dulcolax) 10 mg PO DAILYPRN PRN PRN Reason: Constipation Calcium Carbonate (Tums) 1,000 mg PO Q4H PRN PRN Reason: Heartburn or Indigestion Carvedilol (Coreg) 3.125 mg PO BID-[facility] Last Admin: 08/14/18 08:09 Dose: Not Given Cinacalcet (Sensipar) 30 mg PO DAILY [facility] Last Admin: 08/14/18 08:09 Dose: 30 mg Folic Acid (Folvite) 0.5 mg PO DAILY [facility] Last Admin: 08/14/18 08:10 Dose: 0.5 mg Heparin Sodium (Porcine) (Heparin) 5,000 units SC BID [facility] Last Admin: 08/14/18 08:08 Dose: 5,000 units Dextrose/Sodium Chloride (D5 0.9% Ns) 1,000 mls @ 50 mls/hr IV .Q20H [facility] Last Admin: 08/14/18 10:38 Dose: 1,000 mls Pantoprazole Sodium 80 mg/ (Sodium Chloride) 100 mls @ 10 mls/hr IVP INF [facility] Last Admin: 08/14/18 10:54 Dose: 100 mls Midodrine (Proamatine) 5 mg PO DAILY [facility] Last Admin: 08/14/18 08:09 Dose: 5 mg Ondansetron HCl (Zofran Odt) 4 mg PO Q6H PRN PRN Reason: Nausea/Vomiting Ondansetron HCl (Zofran) 4 mg IVP Q6H PRN PRN Reason: Nausea/Vomiting Senna/Docusate Sodium (Senokot S) 2 tab PO BIDPRN PRN PRN Reason: Constipation Sevelamer Carbonate (Renvela) 800 mg PO TID-[facility] Last Admin: 08/14/18 10:53 Dose: Not Given Sevelamer Carbonate (Renvela) 800 mg PO ASDIR PRN PRN Reason: WITH SNACKS Zolpidem Tartrate (Ambien) 5 mg PO HSPRN PRN PRN Reason: Insomnia
[2018-08-14 13:26] LABS: Iron 115 ug/dL (50-170); Iron Binding Capacity, Total 321 mcg/dL (265-497)
--- NOTE | 2018-08-14 14:22 | CON ---
DATE OF CONSULTATION: HISTORY OF PRESENT ILLNESS: The patient is a 63-year-old female, who was seen in the [place] ER because of progressive fatigue. She reports that she has had no nausea or vomiting. No weight loss. No abdominal pain. She reports maybe her stools are slightly darker than normal. The patient has had multiple endoscopies, colonoscopies, and capsule endoscopy in the past for anemia. She has had AVMs. The patient's iron was stopped a month or two ago by Dr. Knutson. Her Plavix was stopped 9 months ago. She continues to take aspirin 81 mg per day. PAST MEDICAL HISTORY: Includes congestive heart failure, coronary artery disease, status post stent placement, hypertension, and end-stage renal disease, on hemodialysis. PAST SURGICAL HISTORY: Includes hemorrhoidectomy, pacemaker placement, and AV fistula placement. SOCIAL HISTORY: She continues to smoke. Denies any alcohol use. FAMILY HISTORY: Negative for GI or liver disease. ALLERGIES: INCLUDE PENICILLIN AND IODINE. MEDICATIONS: Include; 1. Atorvastatin 10 mg p.o. daily. 2. Protonix 40 mg p.o. daily. 3. Aspirin 81 mg p.o. daily. 4. Lisinopril 20 mg p.o. daily. 5. Ventolin inhaler. 6. Coreg 3.125 mg p.o. b.i.d. 7. Midodrine 5 mg p.o. daily. 8. Renvela 800 mg p.o. t.i.d. 9. Cinacalcet 30 mg p.o. daily. REVIEW OF SYSTEMS: CONSTITUTIONAL: No fever or chills. No weight loss. HEENT: Eyes, no blurred vision or double vision. ENT, no sore throat or earaches. CARDIOVASCULAR: No chest pain or palpitations. PULMONARY: No shortness of breath, cough, or wheezing. GI: See above. : No hematuria or dysuria. MUSCULOSKELETAL: No joint pain or muscle weakness. SKIN: No rashes. NEUROLOGIC: No numbness or seizure activity. PHYSICAL EXAMINATION: GENERAL: Shows a well-developed, well-nourished, female, in no acute distress. VITAL SIGNS: Temperature 98.4, pulse 75, respiratory rate 16, and blood pressure 96/54. HEENT: Unremarkable. NECK: Supple. CHEST: Clear. CARDIOVASCULAR: Regular rate and rhythm. ABDOMEN: Soft and nontender without organomegaly or masses. Bowel sounds are present and normoactive. RECTAL: Deferred. EXTREMITIES: Normal. NEUROLOGIC: Nonfocal. ASSESSMENT: 1. Chronic recurrent anemia. The patient has been anemic since her labs have been drawn back to 2011. She has had multiple workups in the past, which includes upper endoscopy, colonoscopy, and capsule endoscopy. Her last iron studies from October of 2017 showed a normal iron level of 73, total iron binding capacity was low at 231, percent saturation was normal, and ferritin was normal at 171. This is all consistent with anemia of chronic disease. 2. History of GI arteriovenous malformations. 3. End-stage renal disease, on hemodialysis. 4. Coronary artery disease. RECOMMENDATIONS: 1. We will repeat iron studies if consistent with iron deficiency. She may benefit from intravenous iron. 2. Proton pump inhibitor. 3. Resume diet. 4. No plans for endoscopy at this time. 5. Stable for discharge from GI standpoint. Job ID: [id number]
[2018-08-14 16:41] LABS: Hemoglobin 7.6 g/dL (12.0-16.0)
[2018-08-15] MEDS: Dextrose 5 % And 0.9 % NaCl 1,000 ML IV SCH (06:34)
[2018-08-15] MEDS: Folic Acid 1 MG TAB PO SCH (07:57)
[2018-08-15] MEDS: Cinacalcet HCl 30 MG TAB PO SCH (07:58)
[2018-08-15] MEDS: Sevelamer Carbonate 800 MG TAB PO SCH (07:58)
[2018-08-15] MEDS: Atorvastatin Calcium 10 MG TAB PO SCH (07:58)
[2018-08-15] MEDS: Midodrine HCl 5 MG TAB PO SCH ×2 (07:58→08:06)
[2018-08-15] MEDS: Heparin 5,000 UNITS/ML VIAL SC SCH (07:58)
[2018-08-15 08:24] VITALS: BP 152/68; TEMP 98
--- NOTE | 2018-08-15 10:35 | PDOC.PN ---
- Subjective Encounter Start Date: 08/15/18 Encounter Start Time: 09:15 Subjective: no mary bleeding -: is amb in room, no dizziness or sob - Objective Resuscitation Status - Order Detail: 08/13/18 20:29 Resuscitation Status Routine Resuscitation Status: FULL: Full Resuscitation MAR Reviewed: Yes Vital Signs & Weight: Vital Signs (12 hours) Temp Pulse Resp BP Pulse Ox 08/15/18 07:58 98.0 F 72 20 152/68 H 98 08/15/18 03:45 98.8 F 77 20 96/54 L 97 Weight Weight 114 lb 4.8 oz I&O: 08/14/18 08/15/18 08/16/18 06:59 06:59 06:59 Intake Total 610 240 Output Total 0 970 Balance 610 -730 Result Diagrams: 08/14/18 22:27 08/14/18 04:44 Phys Exam - Physical Examination HEENT: PERRLA, moist MMs Neck: no JVD, supple Respiratory: no wheezing, no rales Cardiovascular: RRR murmur+ Gastrointestinal: soft, non-tender, positive bowel sounds Musculoskeletal: no edema, pulses present Neurological: non-focal, moves all 4 limbs Psychiatric: normal affect, A&O x 3 Dx/Plan (1) Anemia due to acute blood loss Code(s): D62 - ACUTE POSTHEMORRHAGIC ANEMIA Status: Acute (2) Symptomatic anemia Code(s): D64.9 - ANEMIA, UNSPECIFIED Status: Acute (3) CAD (coronary artery disease) Code(s): I25.10 - ATHSCL HEART DISEASE OF [place] CORONARY ARTERY W/O ANG PCTRS Status: Chronic Qualifiers: Coronary Disease-Associated Artery/Lesion type: [place] artery [place] vs. transplanted heart: [place] heart Associated angina: without angina Qualified Code(s): I25.10 - Atherosclerotic heart disease of [place] coronary artery without angina pectoris Comment: prior Stent placement (4) COPD (chronic obstructive pulmonary disease) Status: Chronic Qualifiers: COPD type: chronic bronchitis (5) Dyslipidemia Code(s): E78.5 - HYPERLIPIDEMIA, UNSPECIFIED Status: Chronic (6) ESRD (end stage renal disease) on dialysis Code(s): N18.6 - END STAGE RENAL DISEASE; Z99.2 - DEPENDENCE ON RENAL DIALYSIS Status: Chronic Comment: Maintainanace dialysis per nephrology service (7) PVD (peripheral vascular disease) Code(s): I73.9 - PERIPHERAL VASCULAR DISEASE, UNSPECIFIED Status: Chronic Comment: stable (8) Pulmonary hypertension Code(s): I27.20 - PULMONARY HYPERTENSION, UNSPECIFIED Status: Chronic - Plan has evaluated patient yesterday, no procedures are planned -: GI has cleared for discharge -: may dc home -: Hb around 7g, will need outpt close monitoring of cbc -: has scheduled HD in am. Oral iron and protonix * . Review of Systems - Medications/Allergies Allergies/Adverse Reactions: Allergies Allergy/AdvReac Type Severity Reaction Status Date / Time iodine Allergy Severe Verified 08/13/18 21:21 Penicillins Allergy Severe Verified 08/13/18 21:21 Medications: Current Medications Acetaminophen (Tylenol) 650 mg PO Q4H PRN PRN Reason: Headache/Fever/Mild Pain (1-3) Acetaminophen (Tylenol) 650 mg [place] Q4H PRN PRN Reason: Headache/Fever/Mild Pain (1-3) Atorvastatin Calcium (Lipitor) 10 mg PO DAILY [facility] Last Admin: 08/15/18 07:58 Dose: 10 mg Bisacodyl (Dulcolax) 10 mg PO DAILYPRN PRN PRN Reason: Constipation Calcium Carbonate (Tums) 1,000 mg PO Q4H PRN PRN Reason: Heartburn or Indigestion Cinacalcet (Sensipar) 30 mg PO DAILY [facility] Last Admin: 08/15/18 07:58 Dose: 30 mg Folic Acid (Folvite) 0.5 mg PO DAILY [facility] Last Admin: 08/15/18 07:57 Dose: 0.5 mg Heparin Sodium (Porcine) (Heparin) 5,000 units SC BID [facility] Last Admin: 08/15/18 07:58 Dose: Not Given Dextrose/Sodium Chloride (D5 0.9% Ns) 1,000 mls @ 50 mls/hr IV .Q20H [facility] Last Admin: 08/15/18 06:34 Dose: 1,000 mls Midodrine (Proamatine) 5 mg PO DAILY [facility] Last Admin: 08/15/18 08:06 Dose: Not Given Ondansetron HCl (Zofran Odt) 4 mg PO Q6H PRN PRN Reason: Nausea/Vomiting Ondansetron HCl (Zofran) 4 mg IVP Q6H PRN PRN Reason: Nausea/Vomiting Pantoprazole Sodium (Protonix) 40 mg PO DAILY [facility] Last Admin: 08/15/18 08:05 Dose: 40 mg Senna/Docusate Sodium (Senokot S) 2 tab PO BIDPRN PRN PRN Reason: Constipation Last Admin: 08/14/18 21:22 Dose: 2 tab Sevelamer Carbonate (Renvela) 800 mg PO TID-WM [facility] Last Admin: 08/15/18 07:58 Dose: 800 mg Sevelamer Carbonate (Renvela) 800 mg PO ASDIR PRN PRN Reason: WITH SNACKS Zolpidem Tartrate (Ambien) 5 mg PO HSPRN PRN PRN Reason: Insomnia
--- NOTE | 2018-08-15 14:06 | DIS ---
DATE OF ADMISSION: 08/14/2018 DATE OF DISCHARGE: 08/15/2018 DISCHARGE DISPOSITION: To home. PRIMARY DISCHARGE DIAGNOSES: Acute blood loss anemia, suspected gastrointestinal bleed, stable. SECONDARY DISCHARGE DIAGNOSES: Coronary artery disease; chronic obstructive pulmonary disease; end-stage renal disease, on hemodialysis; dyslipidemia; peripheral vascular disease; and pulmonary hypertension. PROCEDURES DONE DURING HOSPITALIZATION: Chest x-ray done on the day of admission, which showed cardiomegaly. H and H have remained stable around 7 and 21, MCV is 100, platelet count 208. BUN and creatinine 21 and 3.3. Troponin I indeterminate, peaking up to 0.09, CK-MB 0.6. BNP 3147. INPATIENT CONSULT: Kameron Wiggins MD for Gastroenterology. DISCHARGE PLAN: The patient to follow up with primary care physician in 1 week. DISCHARGE MEDICATIONS: 1. Lipitor 10 mg p.o. daily. 2. Sensipar 30 mg p.o. daily. 3. Folic acid 0.4 mg p.o. daily. 4. Protonix 40 mg p.o. daily. 5. Sevelamer 800 mg p.o. 3 times daily. 6. Albuterol inhaler q.6 hourly p.r.n. 7. Coreg 3.125 mg p.o. twice daily. 8. Ferrous sulfate 325 mg p.o. twice daily. 9. Midodrine 5 mg p.o. daily. ALLERGIES: ALLERGIC TO IODINE AND PENICILLIN. BRIEF COURSE DURING HOSPITALIZATION: The patient initially got admitted on the for complaints of weakness and dizziness. The patient's hemoglobin was 7 on arrival. The patient had 1 unit of packed cell transfused. Her aspirin was held. She was kept n.p.o. and was placed on Protonix drip. She has had consultation with Dr. Wiggins. She has known prior history of AVMs in the stomach in 2018. In view of multiple prior EGDs and stable H and H, Dr. Wiggins advised not to proceed with any further procedures. He has cleared her for discharge. She needs follow up with Dr. Knutson in the outpatient setting in 2 to 4 weeks and primary care physician in 1 week. Please see a [id number] documentation for the day of discharge on [employer]. Job ID: [id number]
== END 2018-08-15 11:08 | disposition home or self-care (01) | DRG 377 ==
LOC: ERS 16:50 → 2SW 21:00 → OBSVTOIN 08-14 10:16
PROVIDERS: ADMIT Internal Medicine; ATTEND Internal Medicine
DX: K92.2 Gastrointestinal hemorrhage, unspecified (principal); N18.6 End stage renal disease; D62 Acute posthemorrhagic anemia; I13.2 Hypertensive heart and chronic kidney disease with heart failure and with stage 5 chronic kidney disease, or end stage renal disease; J44.9 Chronic obstructive pulmonary disease, unspecified; E78.5 Hyperlipidemia, unspecified; I25.10 Atherosclerotic heart disease of native coronary artery without angina pectoris; I50.9 Heart failure, unspecified; Z99.2 Dependence on renal dialysis; I27.20 Pulmonary hypertension, unspecified; I73.9 Peripheral vascular disease, unspecified; D63.1 Anemia in chronic kidney disease; J45.909 Unspecified asthma, uncomplicated
CPT/HCPCS: 36415; 36430; 71045; 80048; 80053; 82274; 82550; 82553; 82728; 83540; 83550; 83880; 84484; 85025; 86850; 86900; 86901; 87804; 93005; 94760; C9113; J1644; J7050; P9016

== ENCOUNTER 2018-08-22 14:58 | Observation (INO) | payer MEDICARE, OTHER ==
[2018-08-22 15:43] LABS: #Eosinphils 0.2 thou/uL (0.0-0.7); #Monocytes 0.2 thou/uL (0.11-0.59); #Neutrophils 1.3 thou/uL (1.40-6.50); %Basophils 0.9 % (0.0-1.0); %Eosinophils 8.6 % (0.0-10.0); %Lymphocytes 36.8 % (21.0-51.0); %Monocytes 8.6 % (0.0-10.0); Hemoglobin 7.4 g/dL (12.0-16.0); Mean Corpuscular HGB CONC 33.7 g/dL (32.0-36.0); Mean Corpuscular Hemoglobin 35.2 pg (27.0-31.0); Mean Platelet Volume 6.8 fL (7.4-10.4); Platelet Count 268 thou/uL (130-400); RBC Distribution Width 16.9 % (11.5-14.5); Red Blood Cell (RBC) Count 2.11 mill/uL (4.20-5.40); White Blood Cell (WBC) Count 2.8 thou/uL (4.8-10.8)
[2018-08-22 15:50] LABS: INR-International Normal Ratio 1.2; Prothrombin Time 15.5 SEC (12.0-14.7)
[2018-08-22 15:51] LABS: PTT 27.9 SEC (22.9-36.1)
[2018-08-22 16:02] LABS: ALT (SGPT) 7 U/L (8-55); AST (SGOT) 15 U/L (5-34); Albumin 3.8 g/dL (3.4-4.8); Alkaline Phosphatase 100 U/L (40-150); Anion Gap 19 mmol/L (10-20); BUN (Urea Nitrogen) 45 mg/dL (9.8-20.1); Bilirubin, Total 0.3 mg/dL (0.2-1.2); Calc. Creatinine Clearance 0 mL/min (70-130); Calcium 8.1 mg/dL (7.8-10.44); Carbon Dioxide 26 mmol/L (23-31); Chloride 96 mmol/L (98-107); Estimated GFR-MDRD 8; Globulin 3.4 g/dL (2.4-3.5); Glucose 83 mg/dL (80-115); Potassium 4.2 mmol/L (3.5-5.1); Protein, Total 7.2 g/dL (6.0-8.3); Sodium 137 mmol/L (136-145)
[2018-08-22 16:24] LABS: CKMB 0.9 ng/mL (0-6.6)
--- NOTE | 2018-08-22 16:27 | RAD ---
PORTABLE AP CHEST X-RAY: 08/22/2018 HISTORY: Dyspnea. COMPARISON: 08/13/2018 FINDINGS: A dual-lead left subclavian AICD device remains in place. The cardiac silhouette remains enlarged. Coronary artery stents overly the right cardiac silhouette. Vascular calcification is seen in the th oracic aorta. The pulmonary vasculature is within normal limits. Linear densities are again seen at the right lung base, which may be related to mild scarring. The lungs are otherwise clear. Vascula r stents are partially visualized at the medial aspect of the left upper extremity. Surgical clips o verly the neck. No other interval change. IMPRESSION: 1. No acute cardiopulmonary process. 2. Cardiomegaly. 3. Scarring, right lung base. POS: [facility]
[2018-08-22] MEDS ORDERED: Acetaminophen 325 MG TAB PO PRN (17:10)
--- NOTE | 2018-08-22 17:20 | PDOC.EVN ---
Event Note - Event Note Event Note: Discussed case with Dr. Reyna, he prefers one unit of PRBC tonight and one unit with dialysis tomorrow. He will schedule dialysis in AM. Blood bank aware.
[2018-08-22] MEDS ORDERED: PROVENTIL INHALER 6.7 G (200 INHALATIONS) INH PRN (17:22)
--- NOTE | 2018-08-22 17:40 | HP ---
PRIMARY CARE PHYSICIAN: Dr. Roman. CHIEF COMPLAINT: Weakness, fatigue, shortness of breath on exertion. HISTORY OF PRESENT ILLNESS: Ms. Sullivan is a very pleasant 63-year-old female with a past medical history of end-stage renal disease, on hemodialysis Thursday, Wednesdays, and Fridays. Coronary artery disease, COPD, peripheral vascular disease, presenting to the emergency room today for fatigue, shortness of breath with exertion, which she reports started on Thursday of this week. Reports that she had a CBC drawn on Thursday. Saw Dr. Roman on Thursday and was called on Thursday to come to the emergency room for potential blood transfusion as her hemoglobin had dropped in the low 7s. In the emergency room here, her hemoglobin was 7.4, hematocrit 22, platelet count 268. On 08/20, hemoglobin was 7.5. On 08/14/2018, it was 7.6 and 7.7. She was admitted on 08/14 for similar complaints. Reports that she received 1 unit of packed red cells. [place] much better, was discharged home. Reports that she felt better until Thursday of this past week. CBC was drawn and results as above. She does report Dr. Roman took her off the Sensipar. Reports that her thyroid function was very labile and he was going to take her off it for now and would recheck thyroid panel and would restart it as necessary. She denies any other changes to her medication or her past medical history. The patient last had dialysis on Thursday. As above, she is scheduled for hemodialysis on Thursday, Thursday, and Thursday at 5 a.m. We will consult Dr. Reyna to see if he would like to do dialysis tomorrow as she will miss her chair time being in the hospital for a transfusion. She will be admitted to the tele observation for 2 units of packed red blood cells. We will recheck lab values again in the morning. REVIEW OF SYSTEMS: The patient is lying on the stretcher. Denies any complaints. Reports as long as she is sitting, she feels much better and when she gets up and moves around, it is when the fatigue and shortness of breath are felt. All other systems are reviewed and are negative. PAST MEDICAL HISTORY: Congestive heart failure, coronary artery disease, multiple stents, hypertension, asthma, end-stage renal, on hemodialysis Thursday, Wednesdays, and Fridays; chronic anemia; has had some erosive gastritis in the past; secondary hyperparathyroidism of renal origin. FAMILY HISTORY: Reviewed and noncontributory to the case. PAST SURGICAL HISTORY: Hemorrhoidectomy, removal of stomach lesions, left upper arm AV fistula. The patient has a surgical history of cholecystectomy, bilateral carotid endarterectomy, pacemaker defibrillator in the left chest. PSYCH HISTORY: None. SOCIAL HISTORY: The patient lives at home. The patient denies alcohol use. Denies any illicit drug use. Does smoke cigarettes. The patient reports that she smokes 9 to 10 cigarettes per day. ALLERGIES: PENICILLIN AND IODINE. MEDICATIONS: From last discharge; 1. Tylenol 625 mg p.o. q.4 to 6 as needed. 2. Lipitor 10 mg p.o. daily. 3. Folic acid 0.4 mg p.o. daily. 4. Protonix 40 mg p.o. daily. 5. Sevelamer 800 mg p.o. t.i.d. 6. Ventolin inhaler two puffs q.4 hours as needed for wheezing. 7. Coreg 3.125 mg b.i.d. 8. Ferrous sulfate 325 mg p.o. daily. 9. Midodrine 5 mg p.o. daily. PHYSICAL EXAMINATION: VITAL SIGNS: Blood pressure is 127/85, pulse is 98, respiratory rate is 16, temperature is 98.5, PO2 is 100% on room air. CONSTITUTIONAL: The patient is alert and oriented to person, place, and time, is nontoxic appearing. HEENT: Head is atraumatic and normocephalic. Eyes; extraocular muscles are intact. Conjunctiva is normal. Sclerae are normal. ENT, nose exam is normal. Pharynx with no erythema or exudates. NECK: Normal range of motion. Trachea is midline. RESPIRATORY/CHEST: No respiratory distress. Breath sounds are clear. CARDIOVASCULAR: Regular rate and rhythm. Heart sounds are normal. ABDOMEN: Soft. Bowel sounds are heard. BACK: Normal range of motion. No CVA tenderness. UPPER EXTREMITY: Normal range of motion. Motor strength is normal. The patient with an AV fistula to the left lower extremity with bruit and thrill. Lower extremity, normal range of motion. Motor strength is normal. No lower edema is noted. NEURO: Speech is normal. The patient is alert to person, place, and time. SKIN: Warm and dry. LABORATORY DATA: First troponin 0.0686 in indeterminate range. CK-MB is 0.9. The patient is O-positive. Sodium is 137, potassium 4.2, chloride 96, carbon dioxide 26, gap is 19, BUN is 45, creatinine 6.54, GFR is estimated at 8, glucose 83, ALT is 7. Other liver enzymes are unremarkable. PTT 27.9, Prothrombin time is 15.5, INR is 1.2. White blood cell count is 2.8, hemoglobin is 7.4, hematocrit is 22, platelet count is 268. The patient had a portable chest x-ray, which showed no acute cardiopulmonary process, cardiomegaly, scarring to right lung base. ASSESSMENT AND PLAN: 1. Symptomatic anemia. The patient's hemoglobin is 7.4. ER physician has ordered 2 units, which we will infuse. Consult Nephrology. The patient is due for her dialysis in the morning . [employer] [facility] will be consulted. We will follow up with morning labs. We will continue to monitor this patient closely. 2. End-stage renal disease, on her hemodialysis. Potassium is within normal range. We will consult Nephrology as above. 3. Coronary artery disease, currently stable. We will continue the patient on her home medications. 4. History of chronic obstructive pulmonary disease. The patient is stable. We will continue the patient on home medications. Add DuoNeb as needed. 5. Peripheral vascular disease, stable. We will continue the patient on home medications. 6. DVT and Gastrointestinal prophylaxis will be started. Hospital course will be dependent on clinical findings. Job ID: [id number] [facility]
[2018-08-22] MEDS: Ferrous Sulfate 325 MG TAB PO SCH (21:42)
[2018-08-22] MEDS: Nicotine 14 MG PATCH TD SCH (21:43)
[2018-08-22] MEDS ORDERED: Atorvastatin Calcium 10 MG TAB PO SCH (21:45)
[2018-08-22] MEDS ORDERED: Carvedilol 3.125 MG TAB PO SCH (22:00)
[2018-08-23] MEDS ORDERED: hydrALAZINE 20 MG/ML VIAL SLOW IVP PRN (02:05)
[2018-08-23] MEDS ORDERED: Aspirin 325 MG TAB PO SCH (02:15)
[2018-08-23] MEDS: Nitroglycerin 0.4 MG TAB (25 Tab Bottle) SL PRN ×3 (02:25→02:36)
[2018-08-23 02:38] LABS: #Eosinphils 0.2 thou/uL (0.0-0.7); #Lymphocytes 1.2 thou/uL (1.20-3.40); #Monocytes 0.3 thou/uL (0.11-0.59); #Neutrophils 2.2 thou/uL (1.40-6.50); %Basophils 0.7 % (0.0-1.0); %Eosinophils 6.1 % (0.0-10.0); %Lymphocytes 29.5 % (21.0-51.0); %Monocytes 8.4 % (0.0-10.0); %Neutrophils 55.3 % (42.0-75.0); Hemoglobin 7.5 g/dL (12.0-16.0); Mean Corpuscular Hemoglobin 33.9 pg (27.0-31.0); Mean Platelet Volume 6.8 fL (7.4-10.4); Platelet Count 193 thou/uL (130-400)
[2018-08-23 03:23] LABS: ALT (SGPT) Less than 7 U/L (8-55); AST (SGOT) 16 U/L (5-34); Albumin 3.3 g/dL (3.4-4.8); Alkaline Phosphatase 82 U/L (40-150); Anion Gap 19 mmol/L (10-20); BUN (Urea Nitrogen) 54 mg/dL (9.8-20.1); Bilirubin, Total 0.3 mg/dL (0.2-1.2); Calc. Creatinine Clearance 8 mL/min (70-130); Calcium 7.5 mg/dL (7.8-10.44); Carbon Dioxide 25 mmol/L (23-31); Chloride 99 mmol/L (98-107); Estimated GFR-MDRD 7; Globulin 2.8 g/dL (2.4-3.5); Glucose 93 mg/dL (80-115); Potassium 4.4 mmol/L (3.5-5.1); Protein, Total 6.1 g/dL (6.0-8.3); Sodium 139 mmol/L (136-145)
[2018-08-23 06:00] LABS: Troponin I 0.084 ng/mL (< 0.028)
[2018-08-23] MEDS ORDERED: Atorvastatin Calcium 10 MG TAB PO SCH ×2 (09:00→21:00)
[2018-08-23] MEDS ORDERED: Epoetin (ESRD) 20,000 UNITS/ML SC SCH (09:00)
--- NOTE | 2018-08-23 09:20 | CON ---
DATE OF CONSULTATION: RENAL MEDICINE HISTORY OF PRESENT ILLNESS: Ms. Sullivan is a 63-year-old black female with ESRD - on maintenance hemodialysis and admitted for symptomatic anemia. The patient had hemoglobin of 7.4. She was given 1 unit of packed RBC yesterday. The plan is to give her another unit during dialysis. I am currently at the bedside, supervising her dialysis. She complains of being tired, but no chest pain or shortness of breath at the present time. REVIEW OF SYSTEMS: Positive for generalized malaise. Denies any hematochezia. No melena. No hematemesis. No chest pain. Positive for mild shortness of breath. No diarrhea. No constipation. No headache. No diplopia. No abdominal pain. No diarrhea. No constipation. No productive cough. No fever or chills. Appetite and energy level is fair. MEDICATIONS: Currently on; 1. Lipitor 10 mg at bedtime. 2. DuoNeb q.6 hours p.r.n. 3. Proventil 2 puffs q.4 hours as needed. 4. Coreg 3.125 mg b.i.d. 5. Ferrous sulfate 325 mg p.o. b.i.d. 6. Folvite 0.5 mg daily. 7. Hydralazine 10 mg q.4 p.r.n. 8. Midodrine 5 mg daily. 9. Nicotine patch. 10. Nitrostat p.r.n. 11. Protonix 40 mg q.a.m. 12. Renvela 800 mg p.o. t.i.d. with meals. PAST MEDICAL HISTORY: 1. ESRD - on maintenance hemodialysis on Thursday, Thursday, and Thursday. 2. Hyperlipidemia. 3. Hypertension. 4. Status post GI bleed. 5. History of heavy alcohol intake. 6. Chronic hepatitis C. 7. Sickle cell trait. 8. Status post upper GI AV malformation. 9. Depression. 10. Peripheral vascular disease. PAST SURGICAL HISTORY: Status post upper and lower GI endoscopy, status post AV fistula placement, status post cuffed dialysis catheter placement, status post transection, status post left carotid endarterectomy, status post AV fistula. SOCIAL HISTORY: The patient is , lives alone. Lives in [place]. Smoked for 42 years, averaging 1 pack a day. The patient is still currently using alcohol, status post multiple blood transfusion. Education, some college courses. Retired [employer]. FAMILY HISTORY: Positive family history of ESRD. ALLERGIES: PENICILLIN. TRAUMA: None. IMMUNIZATIONS: Up-to-date. HOSPITALIZATIONS: Please see past medical history. PHYSICAL EXAMINATION: VITAL SIGNS: Blood pressure is noted at 130/70 with a heart rate of 70. GENERAL: Noted to be awake, alert, comfortable, not in overt distress. SKIN: Adequate turgor. HEENT: She has had a slightly pale conjunctivae. Anicteric sclerae. NECK: No neck mass. No carotid bruits. No JVD. CHEST: No deformities. LUNGS: Decreased breath sounds. HEART: Normal sinus rhythm. No murmurs. No gallops. No rubs. ABDOMEN: Globular, soft, nontender. No masses. EXTREMITIES: No edema. No deformities. LABORATORY DATA: Laboratories of August 23, 2018; white count 4, hemoglobin 7.5, and hematocrit 22.6. Sodium 139, potassium 4.4, chloride 99, carbon dioxide 25, BUN 54, creatinine 7.45, glucose 93, and calcium 7.5. ASSESSMENT AND PLAN: 1. End-stage renal disease. Continue current hemodialysis regimen. Minimal heparin to no heparin use. 2. Chronic anemia - the patient has had gastrointestinal bleed in the past. We will give a second unit of packed RBC. She has undergone several upper gastrointestinal endoscopy and lower gastrointestinal endoscopy. If needed, we can reconsult GI. Overall, I agree with current management, supportive care. Job ID: [id number]
[2018-08-23] MEDS: Carvedilol 3.125 MG TAB PO SCH ×2 (09:50→18:20)
[2018-08-23] MEDS: Ferrous Sulfate 325 MG TAB PO SCH ×2 (09:51→20:49)
[2018-08-23] MEDS: Sevelamer Carbonate 800 MG TAB PO SCH ×3 (09:51→18:20)
[2018-08-23] MEDS: Folic Acid 1 MG TAB PO SCH (09:51)
[2018-08-23] MEDS: Midodrine HCl 5 MG TAB PO SCH (09:51)
[2018-08-23] MEDS: Epoetin (ESRD) 10,000 UNITS/ML VIAL SC SCH (09:51)
[2018-08-23 11:39] LABS: Troponin I 0.084 ng/mL (< 0.028)
--- NOTE | 2018-08-23 14:20 | PDOC.PN ---
- Subjective Encounter Start Date: 08/23/18 Encounter Start Time: 14:18 Patient lying in bed post dialysis, she reports feeling better s/p her second unit of PRBCs. She denies chest pain, shortness of breath, palpitations or abdominal pain. Troponin remain at her baseline. She states she is hungry and feels like eating. - Objective Resuscitation Status - Order Detail: 08/22/18 17:10 Resuscitation Status Routine Co-Sign Provider: Resuscitation Status: FULL: Full Resuscitation Discussed with: Patient MAR Reviewed: Yes Vital Signs & Weight: Vital Signs (12 hours) Temp Pulse Pulse Resp BP BP Pulse Ox 08/23/18 11:50 98.2 F 73 16 145/65 H 98 08/23/18 09:27 98.5 F 69 18 139/63 08/23/18 02:44 97.6 F 72 20 136/62 97 Weight Weight 134 lb 12.8 oz I&O: 08/22/18 08/23/18 08/24/18 06:59 06:59 06:59 Intake Total 240 0 Output Total 25 Balance 215 0 Result Diagrams: 08/23/18 02:31 08/23/18 02:31 Radiology Reviewed by me: Yes Phys Exam - Physical Examination Constitutional: NAD HEENT: PERRLA, moist MMs, oral pharynx no lesions Neck: no nodes, no JVD, supple Respiratory: no wheezing, no rales, no rhonchi, clear to auscultation bilateral Cardiovascular: RRR, no significant murmur, no rub Gastrointestinal: soft, non-tender, no distention, positive bowel sounds Musculoskeletal: no edema, pulses present AV fistula present Neurological: non-focal, normal sensation, moves all 4 limbs Lymphatic: no nodes Psychiatric: normal affect, A&O x 3 Skin: no rash, normal turgor, cap refill <2 seconds Dx/Plan (1) Symptomatic anemia Code(s): D64.9 - ANEMIA, UNSPECIFIED Status: Acute (2) CAD (coronary artery disease) Code(s): I25.10 - ATHSCL HEART DISEASE OF [place] CORONARY ARTERY W/O ANG PCTRS Status: Chronic Qualifiers: Coronary Disease-Associated Artery/Lesion type: [place] artery [place] vs. transplanted heart: [place] heart Associated angina: without angina Qualified Code(s): I25.10 - Atherosclerotic heart disease of [place] coronary artery without angina pectoris Comment: prior Stent placement (3) ESRD (end stage renal disease) on dialysis Code(s): N18.6 - END STAGE RENAL DISEASE; Z99.2 - DEPENDENCE ON RENAL DIALYSIS Status: Chronic Comment: Maintainanace dialysis per nephrology service (4) HTN (hypertension) Code(s): I10 - ESSENTIAL (PRIMARY) HYPERTENSION Status: Chronic Qualifiers: Hypertension type: essential hypertension Qualified Code(s): I10 - Essential (primary) hypertension Comment: controlled - Plan cont current plan of care * Continue dialysis per nephrology * Continue home medications * Monitor Vitals and labs, transfuses as needed * Recheck H&H in am * If stable likely discharge tomorrow
[2018-08-23] MEDS: Nicotine 14 MG PATCH TD SCH (22:25)
[2018-08-24 04:51] LABS: #Basophils 0.1 thou/uL (0.0-0.2); #Eosinphils 0.2 thou/uL (0.0-0.7); #Lymphocytes 0.8 thou/uL (1.20-3.40); #Monocytes 0.3 thou/uL (0.11-0.59); %Basophils 1.5 % (0.0-1.0); %Eosinophils 6.5 % (0.0-10.0); %Lymphocytes 23.1 % (21.0-51.0); %Monocytes 8.3 % (0.0-10.0); %Neutrophils 60.6 % (42.0-75.0); Hemoglobin 9.2 g/dL (12.0-16.0); Mean Corpuscular HGB CONC 33.5 g/dL (32.0-36.0); Mean Corpuscular Hemoglobin 33.4 pg (27.0-31.0); Mean Corpuscular Volume 99.8 fL (78.0-98.0); Mean Platelet Volume 7.4 fL (7.4-10.4); Platelet Count 184 thou/uL (130-400); RBC Distribution Width 17.1 % (11.5-14.5); Red Blood Cell (RBC) Count 2.75 mill/uL (4.20-5.40); White Blood Cell (WBC) Count 3.3 thou/uL (4.8-10.8)
[2018-08-24 05:09] LABS: ALT (SGPT) 10 U/L (8-55); AST (SGOT) 20 U/L (5-34); Albumin 3.3 g/dL (3.4-4.8); Alkaline Phosphatase 92 U/L (40-150); Anion Gap 16 mmol/L (10-20); BUN (Urea Nitrogen) 31 mg/dL (9.8-20.1); Bilirubin, Total 0.4 mg/dL (0.2-1.2); Calc. Creatinine Clearance 11 mL/min (70-130); Calcium 8.4 mg/dL (7.8-10.44); Carbon Dioxide 27 mmol/L (23-31); Chloride 101 mmol/L (98-107); Estimated GFR-MDRD 11; Globulin 3.1 g/dL (2.4-3.5); Glucose 82 mg/dL (80-115); Potassium 3.8 mmol/L (3.5-5.1); Protein, Total 6.4 g/dL (6.0-8.3); Sodium 140 mmol/L (136-145)
[2018-08-24 08:18] VITALS: TEMP 98.3
[2018-08-24] MEDS: Carvedilol 3.125 MG TAB PO SCH (08:36)
[2018-08-24] MEDS: Sevelamer Carbonate 800 MG TAB PO SCH ×2 (08:36→12:44)
[2018-08-24] MEDS: Folic Acid 1 MG TAB PO SCH (08:37)
[2018-08-24] MEDS: Ferrous Sulfate 325 MG TAB PO SCH (08:37)
[2018-08-24] MEDS: Midodrine HCl 5 MG TAB PO SCH (08:37)
[2018-08-24] MEDS: Epoetin (ESRD) 10,000 UNITS/ML VIAL SC SCH (10:50)
[2018-08-24 12:45] VITALS: BP 159/72
--- NOTE | 2018-08-26 22:57 | EKG ---
Test Reason : CHEST PAIN Blood Pressure : / mmHG Vent. Rate : 074 BPM Atrial Rate : 074 BPM P-R Int : 246 ms QRS Dur : 082 ms QT Int : 442 ms P-R-T Axes : -09 -05 184 degrees QTc Int : 490 ms Atrial-paced rhythm T wave abnormality, consider inferolateral ischemia Prolonged QT Abnormal ECG When compared with ECG of 13-AUG-2018 16:56, (Unconfirmed) Electronic atrial pacemaker has replaced Sinus rhythm Confirmed by CHANO GARCIA M.D. ([id number]) on 08/26/2018 10:56:47 PM Referred By: LAUREL Confirmed By:CHANO GARCIA M.D.
== END 2018-08-24 12:57 | disposition home or self-care (01) ==
LOC: ERS 14:58 → 2SW 16:03
PROVIDERS: ADMIT Internal Medicine; ATTEND Internal Medicine
DX: I13.2 Hypertensive heart and chronic kidney disease with heart failure and with stage 5 chronic kidney disease, or end stage renal disease (principal); N18.6 End stage renal disease; I50.9 Heart failure, unspecified; D63.1 Anemia in chronic kidney disease; N25.81 Secondary hyperparathyroidism of renal origin; I25.10 Atherosclerotic heart disease of native coronary artery without angina pectoris; J44.9 Chronic obstructive pulmonary disease, unspecified; F17.210 Nicotine dependence, cigarettes, uncomplicated; I73.9 Peripheral vascular disease, unspecified; E78.5 Hyperlipidemia, unspecified; D57.3 Sickle-cell trait; B18.2 Chronic viral hepatitis C; F32.9 Major depressive disorder, single episode, unspecified; Z99.2 Dependence on renal dialysis; Z79.82 Long term (current) use of aspirin; Z79.899 Other long term (current) drug therapy; Z88.0 Allergy status to penicillin; Z91.041 Radiographic dye allergy status; Z95.5 Presence of coronary angioplasty implant and graft
CPT/HCPCS: 36430 ×2; 71045; 80053 ×3; 82274; 82553; 84484 ×3; 85025 ×3; 85610; 85730; 86850; 86900; 86901; 86920; 93005; 96372; 97139; 99285; G0378 ×4; P9016 ×2; Q4081; 36415; 93010

== ENCOUNTER 2018-10-03 19:27 | Emergency (ER) | payer MEDICARE, OTHER ==
[2018-10-03 20:14] LABS: Hemoglobin 8.5 g/dL (12.0-16.0); Mean Corpuscular HGB CONC 35.1 g/dL (32.0-36.0); Mean Corpuscular Hemoglobin 37.9 pg (27.0-31.0); RBC Distribution Width 15.4 % (11.5-14.5); Red Blood Cell (RBC) Count 2.25 mill/uL (4.20-5.40)
[2018-10-03 20:29] LABS: Anisocytosis SLIGHT = 6-15 cells (100X) (0-5/hpf); Eosinophils 2 % (0-10); Lymphocytes 49 % (21-51); MDiff Complete? YES; Monocytes 2 % (0-10); Neutrophil 46 % (42-75); Platelet Count 238 thou/uL (130-400); Platelet Morphology Comment Appears Adequate; Poikilocytosis SLIGHT = 6-15 cells (100X) (0-5/hpf)
--- NOTE | 2018-10-03 20:35 | RAD ---
AP VIEW CHEST: 10/03/2018 HISTORY: Shortness of breath. COMPARISON: 08/22/2018 FINDINGS: AP view chest demonstrates cardiomegaly. A dual-lead intracardiac defibrillator is seen. Coronary a rtery stents are in place. Calcification of the aorta is seen. IMPRESSION: 1. Cardiomegaly. 2. Patchy area of density in the right lung base is again seen and is stable and unchanged since the previous comparison examination, likely representing an area of scar. POS: [facility]
[2018-10-03 20:49] LABS: ALT (SGPT) 10 U/L (8-55); AST (SGOT) 33 U/L (5-34); Alkaline Phosphatase 202 U/L (40-150); Anion Gap 22 mmol/L (10-20); BUN (Urea Nitrogen) 44 mg/dL (9.8-20.1); Bilirubin, Total 0.3 mg/dL (0.2-1.2); Calc. Creatinine Clearance 0 mL/min (70-130); Calcium 9.7 mg/dL (7.8-10.44); Carbon Dioxide 24 mmol/L (23-31); Chloride 89 mmol/L (98-107); Estimated GFR-MDRD 7; Glucose 67 mg/dL (80-115); Potassium 5.2 mmol/L (3.5-5.1); Sodium 130 mmol/L (136-145)
== END 2018-10-03 22:18 | disposition home or self-care (01) ==
LOC: ERS 19:27
DX: I13.0 Hypertensive heart and chronic kidney disease with heart failure and stage 1 through stage 4 chronic kidney disease, or unspecified chronic kidney disease (principal); I50.9 Heart failure, unspecified; N18.9 Chronic kidney disease, unspecified; D63.1 Anemia in chronic kidney disease; F17.210 Nicotine dependence, cigarettes, uncomplicated; Z79.899 Other long term (current) drug therapy; Z79.891 Long term (current) use of opiate analgesic; Z79.82 Long term (current) use of aspirin
CPT/HCPCS: 71045; 80053; 82553; 83880; 84484; 85025; 86850; 86900; 86901; 93005

== ENCOUNTER 2018-10-08 09:36 | Observation (INO) | payer MEDICARE, OTHER ==
[2018-10-08 10:32] LABS: #Eosinphils 0.1 thou/uL (0.0-0.7); #Lymphocytes 0.6 thou/uL (1.20-3.40); #Monocytes 0.2 thou/uL (0.11-0.59); #Neutrophils 0.8 thou/uL (1.40-6.50); %Lymphocytes 34.9 % (21.0-51.0); %Monocytes 11.5 % (0.0-10.0); %Neutrophils 47.6 % (42.0-75.0); Hemoglobin 5.6 g/dL (12.0-16.0); Mean Corpuscular HGB CONC 33.8 g/dL (32.0-36.0); Mean Corpuscular Hemoglobin 35.6 pg (27.0-31.0); Mean Platelet Volume 7.6 fL (7.4-10.4); Platelet Count 140 thou/uL (130-400); RBC Distribution Width 14.1 % (11.5-14.5); Red Blood Cell (RBC) Count 1.57 mill/uL (4.20-5.40); White Blood Cell (WBC) Count 1.7 thou/uL (4.8-10.8)
[2018-10-08 10:49] LABS: ALT (SGPT) 11 U/L (8-55); AST (SGOT) 20 U/L (5-34); Albumin 3.3 g/dL (3.4-4.8); Alkaline Phosphatase 171 U/L (40-150); Anion Gap 15 mmol/L (10-20); BUN (Urea Nitrogen) 8 mg/dL (9.8-20.1); Bilirubin, Total 0.4 mg/dL (0.2-1.2); Calc. Creatinine Clearance 0 mL/min (70-130); Calcium 8.9 mg/dL (7.8-10.44); Carbon Dioxide 30 mmol/L (23-31); Chloride 98 mmol/L (98-107); Estimated GFR-MDRD 28; Globulin 2.6 g/dL (2.4-3.5); Glucose 86 mg/dL (80-115); Protein, Total 5.9 g/dL (6.0-8.3); Sodium 140 mmol/L (136-145)
[2018-10-08 10:56] LABS: Potassium 2.8 mmol/L (3.5-5.1)
[2018-10-08 11:16] LABS: INR-International Normal Ratio 1.4; PTT 30.7 SEC (22.9-36.1); Prothrombin Time 17.6 SEC (12.0-14.7)
[2018-10-08] MEDS ORDERED: Potassium Chloride 20 MEQ TAB ONE (11:20)
[2018-10-08 11:30] LABS: Iron 43 ug/dL (50-170); Iron Binding Capacity, Total 288 mcg/dL (265-497)
[2018-10-08] MEDS ORDERED: Bisacodyl 5 MG TAB PO PRN (12:20)
[2018-10-08] MEDS ORDERED: Acetaminophen 650 MG Suppository PR PRN (12:20)
--- NOTE | 2018-10-08 12:54 | HP ---
PRIMARY CARE PROVIDER: Abhay Roman MD CHIEF COMPLAINT: Anemia. HISTORY OF PRESENT ILLNESS: Ms. Sullivan is a pleasant 63-year-old lady, who was seen at [facility] on October 08, 2018. She was at her dialysis session today. She had her hemoglobin checked and was found to have a hemoglobin of 5.7. She was therefore sent to the emergency room. She denies any chest pain. She reports generalized weakness. She denies any nausea or vomiting. She denies any blood in stool. She denies any hematemesis. She denies any melena. She reports multiple bidirectional scopes without any known etiology for chronic recurrent anemia. She does have a history of GI AV malformations. REVIEW OF SYSTEMS: All other systems reviewed and found to be negative. PAST MEDICAL HISTORY: End-stage renal disease, on hemodialysis; congestive heart failure; coronary artery disease; hypertension; asthma; erosive gastritis; hyperparathyroidism of renal origin. SURGICAL HISTORY: Hemorrhoidectomy, left upper extremity AV fistula, cholecystectomy, bilateral carotid endarterectomy, pacemaker defibrillator placement, and PCI with coronary stents. FAMILY HISTORY: No family history of premature coronary artery disease. SOCIAL HISTORY: The patient is a current smoker. She denies alcohol use or recreational drug use. ALLERGIES: PENICILLIN AND CODEINE. CURRENT MEDICATIONS: 1. Folic acid 0.4 mg daily. 2. Coreg 3.125 mg 2 times a day. 3. Protonix 40 mg daily. 4. Aspirin 81 mg daily. 5. Atorvastatin 10 mg daily. 6. Ferrous sulfate 325 mg daily. 7. Sevelamer 800 mg 3 times a day. PHYSICAL EXAMINATION: GENERAL: On examination, Ms. Sullivan is awake and alert, not in acute distress. VITAL SIGNS: Blood pressure is 127/70, pulse 82, respiratory rate 16, and oxygen saturation 100% on room air. She is afebrile. EYES: No scleral icterus. She has conjunctival pallor. ENT: Moist mucosal membranes. No oropharyngeal erythema or exudates. NECK: Supple and nontender. Trachea is midline. RESPIRATORY: Accessory muscles of breathing are not active. Chest wall movements are symmetric bilaterally. Lungs are clear to auscultation without wheeze, rhonchi, or crepitations. CARDIOVASCULAR: S1 and S2 are heard, regular. Peripheral pulses palpable. No carotid bruit. No pericardial rub. ABDOMEN: Soft and nontender. Bowel sounds heard. NEUROLOGIC: Cranial nerves 2 through 12 are intact. MUSCULOSKELETAL: Power is 5/5 in all 4 extremities. LYMPHATIC: No cervical lymphadenopathy. PSYCHIATRIC: Normal mood and normal affect. The patient is oriented to person, place, and time. LABORATORY DATA: Ms. Sullivan's labs and investigations were reviewed. She had an electrocardiogram, which shows atrial paced rhythm. She has macrocytic anemia with hemoglobin 5.6 and leukopenia with white count of 1700. Her white count was 4000 on October 03, 2018. Hemoglobin was 8.5 on October 03, 2018. She has normal platelet count. INR 1.4. Normal sodium, decreased potassium of 2.8, elevated blood urea nitrogen of 8, elevated creatinine of 2.14, decreased albumin of 3.3, otherwise unremarkable liver profile, decreased iron level of 43, and elevated ferritin of 433. ASSESSMENT AND PLAN: Ms. Sullivan is a pleasant 63-year-old lady, who was seen at [facility] on October 08, 2018. Her problem list includes: 1. Symptomatic anemia: Ms. Sullivan is presenting with symptomatic anemia, etiology unknown. She will be admitted to the hospital for further management. She will receive packed red blood cell transfusions. 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 2. End-stage renal disease, on dialysis: Nephrology Service has been consulted for her maintenance hemodialysis. 3. Hypokalemia: We will replace potassium and recheck. 4. Coronary artery disease: Stable at this time. The patient denies any chest pain. 5. Leukopenia: We will recheck CBC. Many thanks for allowing me to participate in your patient's care. Please feel free to contact me with any questions or concerns. LEVEL OF RISK: Moderate. LEVEL OF COMPLEXITY: Moderate. Job ID: [id number]
[2018-10-08 15:00] VITALS: BMI 25.7
[2018-10-08] MEDS ORDERED: Non-Formulary Item 1 EACH (Acetaminophen [Tylenol] 650 MG) PO PRN (17:52)
[2018-10-08] MEDS ORDERED: PROVENTIL INHALER 6.7 G (200 INHALATIONS) INH PRN (17:52)
[2018-10-08] MEDS ORDERED: Potassium Chloride 20 MEQ TAB PO SCH (18:00)
[2018-10-08] MEDS ORDERED: Nicotine 21 MG PATCH TD SCH (21:00)
[2018-10-08] MEDS: Ferrous Sulfate 325 MG TAB PO SCH (21:07)
[2018-10-08] MEDS: Carvedilol 3.125 MG TAB PO SCH (21:07)
[2018-10-09] MEDS: Acetaminophen 325 MG TAB PO PRN ×2 (04:36→09:07)
[2018-10-09] MEDS ORDERED: Sevelamer Carbonate 800 MG TAB PO SCH (08:00)
[2018-10-09 08:16] LABS: #Eosinphils 0.2 thou/uL (0.0-0.7); #Lymphocytes 0.9 thou/uL (1.20-3.40); #Monocytes 0.3 thou/uL (0.11-0.59); #Neutrophils 2.5 thou/uL (1.40-6.50); %Basophils 0.1 % (0.0-1.0); %Eosinophils 4.2 % (0.0-10.0); %Lymphocytes 22.6 % (21.0-51.0); %Monocytes 8.7 % (0.0-10.0); %Neutrophils 64.4 % (42.0-75.0); Hemoglobin 9.2 g/dL (12.0-16.0); Mean Corpuscular HGB CONC 32.9 g/dL (32.0-36.0); Mean Corpuscular Hemoglobin 33.3 pg (27.0-31.0); Platelet Count 135 thou/uL (130-400); RBC Distribution Width 17.3 % (11.5-14.5); Red Blood Cell (RBC) Count 2.77 mill/uL (4.20-5.40); White Blood Cell (WBC) Count 3.9 thou/uL (4.8-10.8)
[2018-10-09 08:32] LABS: Anion Gap 13 mmol/L (10-20); BUN (Urea Nitrogen) 12 mg/dL (9.8-20.1); Calc. Creatinine Clearance 14 mL/min (70-130); Calcium 9.6 mg/dL (7.8-10.44); Carbon Dioxide 28 mmol/L (23-31); Chloride 101 mmol/L (98-107); Estimated GFR-MDRD 13; Glucose 73 mg/dL (80-115); Potassium 5.3 mmol/L (3.5-5.1); Sodium 137 mmol/L (136-145)
[2018-10-09] MEDS ORDERED: Aspirin 81 mg Enteric Coated Tablet PO SCH (09:00)
[2018-10-09] MEDS ORDERED: Folic Acid 1 MG TAB PO SCH (09:00)
[2018-10-09] MEDS ORDERED: Atorvastatin Calcium 10 MG TAB PO SCH (09:00)
[2018-10-09] MEDS: Ferrous Sulfate 325 MG TAB PO SCH (09:06)
[2018-10-09] MEDS: Carvedilol 3.125 MG TAB PO SCH (09:06)
[2018-10-09 12:17] VITALS: BP 165/76; TEMP 98.1
--- NOTE | 2018-10-09 14:39 | DIS ---
DATE OF ADMISSION: 10/08/2018 DATE OF DISCHARGE: 10/09/2018 PRIMARY CARE PROVIDER: Abhay Roman M.D. DISCHARGE DIAGNOSIS: Symptomatic anemia. CONDITION OF THE PATIENT ON THE DAY OF DISCHARGE: Stable. I assessed Ms. Sullivan on the day of discharge. PHYSICAL EXAMINATION: VITAL SIGNS: Stable. CARDIAC: She denies any chest pain or shortness of breath. S1 and S2 are heard, regular. LUNGS: Clear to auscultation bilaterally. DISCHARGE MEDICATIONS: No change was made to her pre-admission home medications as dictated on my history and physical note dated October 08, 2018. HOSPITAL COURSE: Ms. Sullivan is a pleasant 63-year-old lady, who was admitted to [facility] on observation status on October 08, 2018, for symptomatic anemia after she presented to the emergency room with a hemoglobin of 5.6. She received packed RBC transfusions, with improvement of her hemoglobin to 9.2 by October 09, 2018. She also improved symptomatically. She is being discharged home in a stable condition. She is advised to follow up with her primary care provider and have her hemoglobin rechecked in a week's time. LABORATORY DATA: On the day of discharge, Ms. Sullivan has white count 3900, hemoglobin 9.2, platelet count 135,000. Sodium 137, potassium 5.3, and creatinine 4.09. Many thanks for allowing me to participate in your patient's care. Please feel free to contact me with any questions or concerns. DISCHARGE DESTINATION: Home. Job ID: [id number]
--- NOTE | 2018-10-15 12:38 | EKG ---
Test Reason : Blood Pressure : / mmHG Vent. Rate : 074 BPM Atrial Rate : 074 BPM P-R Int : 240 ms QRS Dur : 092 ms QT Int : 392 ms P-R-T Axes : 000 -05 170 degrees QTc Int : 435 ms Atrial-paced rhythm with prolonged AV conduction Cannot rule out Anterior infarct , age undetermined Abnormal ECG Confirmed by ARMIDA MOORE D.O. ([id number]), editor publications HAN CASTILLO ([id number]) on 10/15/2018 12:38:12 PM Referred By: Confirmed By:ARMIDA MOORE D.O.
== END 2018-10-09 12:40 | disposition home or self-care (01) ==
LOC: ERS 09:36 → 3SE 12:58
PROVIDERS: ADMIT Internal Medicine; ATTEND Internal Medicine
DX: I13.2 Hypertensive heart and chronic kidney disease with heart failure and with stage 5 chronic kidney disease, or end stage renal disease (principal); N18.6 End stage renal disease; I50.9 Heart failure, unspecified; Z99.2 Dependence on renal dialysis; I25.10 Atherosclerotic heart disease of native coronary artery without angina pectoris; D63.1 Anemia in chronic kidney disease; J45.909 Unspecified asthma, uncomplicated; N25.81 Secondary hyperparathyroidism of renal origin; K29.00 Acute gastritis without bleeding; E87.6 Hypokalemia; F17.200 Nicotine dependence, unspecified, uncomplicated; Z90.49 Acquired absence of other specified parts of digestive tract; Z95.5 Presence of coronary angioplasty implant and graft; Z88.0 Allergy status to penicillin; Z88.5 Allergy status to narcotic agent; Z91.09 Other allergy status, other than to drugs and biological substances; Z79.82 Long term (current) use of aspirin; Z79.899 Other long term (current) drug therapy; Z98.890 Other specified postprocedural states
CPT/HCPCS: 36430; 80048; 80053; 82728; 83540; 83550; 85025 ×2; 85027; 85610; 85730; 86850; 86900; 86901; 86920; 93005; 99291; G0378 ×2; P9016; 36415

== ENCOUNTER 2018-11-07 18:07 | Observation (INO) | payer MEDICARE, OTHER ==
--- NOTE | 2018-11-07 18:38 | RAD ---
FExam: Chest one view HISTORY:Chest pain Comparison: 10/03/2018 FINDINGS: Lungs: Patchy bilateral lower lung zone opacities are present Cardiac silhouette:Enlarged cardiac silhouette, with left-sided AICD, similar-appearing Pulmonary vessels: Stable Pleural Spaces: Clear Pneumothorax: None Osseous abnormalities: None of acuity. IMPRESSION: Stable chest.
[2018-11-07 19:14] LABS: #Lymphocytes 0.5 thou/uL (1.20-3.40); #Monocytes 0.3 thou/uL (0.11-0.59); #Neutrophils 2.2 thou/uL (1.40-6.50); %Basophils 0.7 % (0.0-1.0); %Eosinophils 1.3 % (0.0-10.0); %Lymphocytes 16.7 % (21.0-51.0); %Neutrophils 71.3 % (42.0-75.0); Hemoglobin 8.8 g/dL (12.0-16.0); Mean Platelet Volume 7.9 fL (7.4-10.4); Platelet Count 152 thou/uL (130-400); White Blood Cell (WBC) Count 3.1 thou/uL (4.8-10.8)
[2018-11-07 19:31] LABS: ALT (SGPT) 32 U/L (8-55); AST (SGOT) 76 U/L (5-34); Albumin 3.7 g/dL (3.4-4.8); Alkaline Phosphatase 164 U/L (40-150); Anion Gap 23 mmol/L (10-20); BUN (Urea Nitrogen) 90 mg/dL (9.8-20.1); Bilirubin, Total 0.5 mg/dL (0.2-1.2); Calc. Creatinine Clearance 0 mL/min (70-130); Carbon Dioxide 20 mmol/L (23-31); Chloride 90 mmol/L (98-107); Estimated GFR-MDRD 5; Glucose 107 mg/dL (80-115); Potassium 6.1 mmol/L (3.5-5.1); Protein, Total 6.7 g/dL (6.0-8.3); Sodium 127 mmol/L (136-145)
[2018-11-07 19:52] LABS: CKMB 1.2 ng/mL (0-6.6)
[2018-11-07 21:31] VITALS: BMI 24.6
[2018-11-07] MEDS ORDERED: hydrALAZINE 20 MG/ML VIAL SLOW IVP PRN (22:06)
[2018-11-07] MEDS ORDERED: Sodium Chloride 0.65% Nasal 44 ML BOT EA NARE PRN (22:06)
[2018-11-07] MEDS ORDERED: Bisacodyl 10 MG SUPP PR PRN (22:06)
[2018-11-07] MEDS ORDERED: Eucerin (Mineral Oil/Petrolatum,White) 30 gm Jar TOP PRN (22:06)
[2018-11-07] MEDS ORDERED: Artificial Tears 18 DROP/0.9 ML EA EYE PRN (22:06)
[2018-11-07] MEDS ORDERED: Metoclopramide HCl 10 MG/2 ML VIAL IVP PRN (22:06)
[2018-11-07] MEDS ORDERED: HYDROcodone/Acetaminophen 5/325 mg Tablet PO PRN (22:06)
[2018-11-07] MEDS ORDERED: Loperamide HCl 2 MG CAP PO PRN (22:06)
[2018-11-07] MEDS ORDERED: Diabetic Tussin 200 MG/10 ML UDCUP PO PRN (22:06)
[2018-11-07] MEDS ORDERED: cloNIDine 0.1 MG TAB PO PRN (22:06)
[2018-11-07] MEDS ORDERED: Senokot S 8.6-50 MG TAB PO PRN (22:06)
[2018-11-07 22:13] LABS: Troponin I 0.108 ng/mL (< 0.028)
[2018-11-08 01:30] LABS: Troponin I 0.097 ng/mL (< 0.028)
--- NOTE | 2018-11-08 02:23 | HP ---
PRIMARY CARE PHYSICIAN: Dr. Abhay Roman. REASON FOR ADMISSION: Hyperkalemia. DATE OF SERVICE: 11/07/2018 HISTORY OF PRESENT ILLNESS: A 63-year-old female who has ESRD. She had several admission in our hospital. This time she came in with complaint of chest pain, shortness of breath. The patient was also having diarrhea at home and she started having cough. She denies any flu-like illness. The patient is on dialysis and she had last dialysis on Thursday. She did not go for dialysis on Thursday, because of diarrhea. She denies any sick exposure. She denies any recent antibiotic exposure. She denies any fever or chills. In the emergency room, the patient was found with hyperkalemia. Dr. Reyna was notified. The patient is being admitted for further evaluation. When I saw this patient on the floor at that time patient was having only cough. Her diarrhea has stopped. Her vitals were stable, though blood pressure was high. She was not complaining any shortness of breath or chest pain at that point. ALLERGY: Iodinated contrast media, penicillin. CURRENT HOME MEDICATIONS: 1. Folic acid 0.4 mg daily. 2. Protonix 40 mg daily. 3. Aspirin 81 mg daily. 4. Ferrous sulfate 325 mg p.o. daily. 5. Coreg 6.25 mg b.i.d. 6. Midodrine 5 mg daily. 7. Lipitor 10 mg daily. 8. Renvela 1600 mg three times daily. 9. Ventolin inhaler as needed. REVIEW OF SYSTEMS: CONSTITUTIONAL: Negative for weight loss or gain, ability to conduct usual activities. SKIN: Negative for rash, itching. EYES: Negative for double vision, pain. ENT/MOUTH: Negative for nose bleeding, neck stiffness, pain, tenderness. CARDIOVASCULAR: Negative for palpitations, dyspnea on exertion, orthopnea. RESPIRATORY: Negative for shortness of breath, wheezing, cough, hemoptysis, fever or night sweats. GASTROINTESTINAL: Negative for poor appetite, abdominal pain, heartburn, nausea , vomiting, constipation, or diarrhea. GENITOURINARY: Negative for urgency, frequency, dysuria, nocturia. MUSCULOSKELETAL: Negative for pain, swelling. NEUROLOGIC/PSYCHIATRIC: Negative for anxiety, depression. ALLERGY/IMMUNOLOGIC: Negative for skin rash, bleeding tendency. Please see my HPI for pertinent positives and negatives. All other review of systems reviewed and negative except as mentioned in HPI. PAST MEDICAL HISTORY: Ischemic cardiomyopathy with AICD, chronic systolic heart failure with EF 20-25 percent, history of GI bleed due to AV malformation in duodenum and stomach, coronary artery disease with history of stent, ESRD on hemodialysis, peripheral vascular disease, history of ventricular fibrillation arrest, required AICD in 2018, anemia of renal disease secondary to hyperparathyroidism of renal origin, hypertension. PAST PSYCHIATRIC HISTORY: Reviewed and negative. SOCIAL HISTORY: She lives at home and she is taking care of herself well. She quit smoking few years ago. She denies any other illicit drug abuse. PAST SURGICAL HISTORY: AICD placement, coronary stent placement, dialysis access surgery, hemorrhoidectomy, bilateral carotid endarterectomy, cholecystectomy. FAMILY HISTORY: No Family history of CAD, CVA or cancer. EMERGENCY ROOM COURSE: The patient was given Kayexalate. PHYSICAL EXAMINATION: VITAL SIGNS: On arrival, blood pressure 155/98, pulse 72, respiratory rate 22, temperature 97.8, saturation 98% on room air. weight 57.1 kg. GENERAL: The patient is currently alert, awake, chronically ill, no obvious acute distress. HEENT: Head; normocephalic, atraumatic. Eyes; pupils round, reactive to light. Extraocular muscle intact. ENT: Oropharynx within normal limits. Moist mucous membranes. No oral lesion. No pharyngeal erythema. No exudate. NECK: Supple. No JVD. No thyromegaly. No carotid bruit. No jugular venous distention. LUNGS: Clear to auscultation without any rhonchi or rales. Few end-expiratory wheezing heard. CARDIAC: S1-S2 regular. No murmur. No gallop. No rub. ABDOMEN: Soft. Vague abdominal discomfort, but no peritoneal sign. No guarding. No rigidity. No rebound. No organomegaly. No mass. BACK: Unremarkable. No CVA tenderness. UPPER EXTREMITY: Graft in left upper extremity, otherwise unremarkable. LOWER EXTREMITY: No edema. Good distal pulsation. SKIN: No skin rash. HEMATOLOGICAL: No lymphadenopathy. NEUROLOGIC: Nonfocal examination. SIGNIFICANT LABORATORY DATA: EKG showing AV pacing, nonspecific ST-T changes. Chest x-ray showing cardiomegaly without any acute process. CBC; WBC is 3.1, hemoglobin 8.8, MCV 100, platelets 152. BMP: Sodium 127, potassium 6.1, chloride 90, carbon dioxide 20, anion gap 23, BUN 90, creatinine 10.07, glucose 107, calcium 9.0. LFT: AST 76, ALT 32, alkaline phosphatase 164 , albumin 3.7. CK-MB 1.2. Troponin 0.096 and then 0.108. BNP 99260. ASSESSMENT AND PLAN: 1. Hyperkalemia. The patient has end-stage renal disease. At home, she was drinking lot of orange juice based on history that might have contributed to her hyperkalemia and patient also missed her dialysis on Thursday. Dr. Reyna is already consulted and he will do dialysis early in the morning. After dialysis, we will repeat BMP. If potassium is improved, then the patient can be discharged home. 2. Gastroenteritis. The patient was having diarrhea at home, currently patient does not have any more diarrhea, suspecting viral gastroenteritis. If she still has diarrhea, then we will check for stool for C. difficile, ova and parasite and stool for Campylobacter antigen. 3. Upper airway cough syndrome. This patient has cough, does not suspect any fluid overload. Does not have any pneumonia on x-ray. I will check respiratory virus panel to rule out any viral etiology. Otherwise, the patient will need symptomatic treatment. 4. Macrocytic anemia and anemia of renal disease. Continue folic acid, ferrous sulfate as per home dosage. 5. Dyslipidemia. Continue Lipitor 10 mg daily. 6. Gastroesophageal reflux disease. Continue Protonix 40 mg daily. 7. Secondary hyperparathyroidism of renal origin. Continue Renvela as per home dosage. 8. Coronary artery disease with ischemic cardiomyopathy with automatic implantable cardioverter-defibrillator, currently stable. Continue aspirin 81 mg p.o. daily , Coreg 6.25 mg b.i.d. The patient is not on jaadmrnhppj-mruwgpexbx-vcmgxx inhibitor, angiotensin II receptor blockers, because of renal failure and hyperkalemia. 9. Chronically elevated troponin, likely due to underlying renal disease. This is not non-ST elevation myocardial infarction type 2. This patient's troponin is chronically elevated secondary to the renal failure. 10. Hyponatremia related with renal failure. 11. Deep venous thrombosis prophylaxis not needed, because we are expecting discharge in 24 hours. 12. Gastrointestinal prophylaxis. Protonix 40 mg p.o. daily. CODE STATUS: The patient is full code. DISPOSITION PLAN: Within 24 hours. Plan of care discussed with the patient in detail. Job ID: [id number] [facility]
[2018-11-08 05:44] LABS: #Eosinphils 0.1 thou/uL (0.0-0.7); #Lymphocytes 0.8 thou/uL (1.20-3.40); #Monocytes 0.3 thou/uL (0.11-0.59); #Neutrophils 1.1 thou/uL (1.40-6.50); %Basophils 0.4 % (0.0-1.0); %Eosinophils 2.7 % (0.0-10.0); %Lymphocytes 35.2 % (21.0-51.0); %Neutrophils 48.7 % (42.0-75.0); Mean Corpuscular HGB CONC 34.6 g/dL (32.0-36.0); Mean Corpuscular Hemoglobin 34.4 pg (27.0-31.0); Mean Corpuscular Volume 99.5 fL (78.0-98.0); Mean Platelet Volume 8.2 fL (7.4-10.4); Platelet Count 99 thou/uL (130-400); Platelet Morphology Comment Appears Decreased; RBC Distribution Width 14.9 % (11.5-14.5); Red Blood Cell (RBC) Count 2.31 mill/uL (4.20-5.40); White Blood Cell (WBC) Count 2.2 thou/uL (4.8-10.8)
[2018-11-08 05:46] LABS: Anion Gap 23 mmol/L (10-20); BUN (Urea Nitrogen) 96 mg/dL (9.8-20.1); Calc. Creatinine Clearance 5 mL/min (70-130); Calcium 8.9 mg/dL (7.8-10.44); Carbon Dioxide 22 mmol/L (23-31); Chloride 90 mmol/L (98-107); Estimated GFR-MDRD 4; Glucose 78 mg/dL (80-115); Potassium 4.5 mmol/L (3.5-5.1); Sodium 130 mmol/L (136-145)
[2018-11-08] MEDS ORDERED: Carvedilol 3.125 MG TAB PO SCH (08:00)
[2018-11-08 08:40] LABS: HBSAg Index 0.29 S/CO (0-0.99); Hep B Surf Ag Non-Reactive S/CO (NonReactive)
[2018-11-08] MEDS ORDERED: Epoetin (ESRD) 20,000 UNITS/ML SC SCH (09:00)
--- NOTE | 2018-11-08 09:57 | CON ---
DATE OF CONSULTATION: SERVICE: Renal Medicine. HISTORY OF PRESENT ILLNESS: Ms. Sullivan is a 63-year-old black female with ESRD and presented to the ER for complaints of shortness of breath. During the initial evaluation, she was noted to be mildly hyperkalemic with a potassium of 6.1. Chest x-ray shows increased lung markings. Due to the shortness of breath/CHF and hyperkalemia, it was decided to observe her. We have scheduled her this morning for her regular hemodialysis. Of interest, this patient is not severely anemic. Usually, she becomes symptomatic when her hemoglobin is less than 7. I did reassure the patient that there is no indication to do any emergent blood transfusion with her today. Please note, her hemoglobin this morning was 8.0. REVIEW OF SYSTEMS: We are now being consulted for her maintenance hemodialysis. REVIEW OF SYSTEMS: No chest pain. Intermittent occasional shortness of breath. No diarrhea. No nausea. No vomiting. Denies any melena, hematemesis, or hematochezia. No abdominal pain. Energy level and appetite are fair. No headache. No dysuria. No urinary frequency. Occasional joint pains. MEDICATIONS: 1. [place] 5/325 q.6 p.r.n. 2. Ecotrin 81 mg daily. 3. Lipitor 10 mg at bedtime. 4. Carvedilol 6.25 mg p.o. b.i.d. 5. Ferrous sulfate 325 mg daily. 6. Folic acid 0.5 mg daily. 7. Reglan 5 mg IV q.4 p.r.n. 8. Senokot-S 2 tablets p.o. b.i.d. p.r.n., status post Kayexalate. PAST MEDICAL HISTORY: 1. ESRD - on maintenance hemodialysis. 2. Status post upper GI bleed. 3. History of chronic heavy alcohol intake. 4. History of chronic hepatitis C. 5. Sickle cell trait. 6. Status post upper GI AV malformation. 7. History of depression. 8. Peripheral vascular disease. 9. Hypertension. 10. Hyperlipidemia. PAST SURGICAL HISTORY: Status post multiple upper GI endoscopy, status post lower GI endoscopy, status post AV fistula placement, status post left carotid endarterectomy, and status post cuffed hemodialysis catheter placement. SOCIAL HISTORY: The patient believes alone. Lives in [place]. Smoked for 42 years, averaging 1 pack a day. Currently, still using alcohol. Status post multiple blood transfusion. Education, some college courses. 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 FAMILY HISTORY: Positive family history of ESRD. ALLERGIES: PENICILLIN. TRAUMA: None. IMMUNIZATIONS: Up-to-date. HOSPITALIZATIONS: Please see past medical history. PHYSICAL EXAMINATION: VITAL SIGNS: Blood pressure 152/69 with heart rate of 71, respiratory rate 16, temperature 98.1, and pulse ox 95%. GENERAL: Awake, alert, ambulatory, comfortable, not in distress. SKIN: Adequate turgor. HEENT: Slightly pale conjunctivae. Anicteric sclerae. NECK: No neck mass. No carotid bruits. No JVD. CHEST: No deformities. LUNGS: Clear breath sounds. No wheezing. No crackles. HEART: Normal sinus rhythm. No murmur. No gallops. No rubs. ABDOMEN: Globular, soft, and nontender. No masses. EXTREMITIES: No edema. No deformities. NEUROLOGICAL: Moving all extremities. No tremors. No asterixis. No ataxia. LABORATORY DATA: Laboratories of November 08, 2018: White count 2.2, hemoglobin 8. Sodium 130, potassium 4.5, chloride 90, carbon dioxide 22, BUN 96, creatinine 10.62, glucose 78, and calcium 8.9. IMAGING DATA: Chest x-ray of November 07, 2018, increased lung markings. ASSESSMENT AND PLAN: 1. Shortness of breath - stable, much improved. No indication for any blood transfusion. We will remove fluid with dialysis. 2. End-stage renal disease. We will continue current heparin. We will continue current Thursday, Thursday, and Thursday dialysis. Fluid removal as tolerated by the patient. 3. Hyperkalemia, resolved with Kayexalate. We will adjust potassium bath with dialysis. 4. Anemia. Start Epogen 10,000 units subcu weekly. Agree with current management. Job ID: [id number]
[2018-11-08] MEDS: Sevelamer Carbonate 800 MG TAB PO SCH ×3 (10:19→16:30)
[2018-11-08] MEDS: Acetaminophen 325 MG TAB PO PRN (10:19)
[2018-11-08] MEDS: Aspirin 81 mg Enteric Coated Tablet PO SCH (10:20)
[2018-11-08] MEDS: Atorvastatin Calcium 10 MG TAB PO SCH (10:20)
[2018-11-08] MEDS: Ferrous Sulfate 325 MG TAB PO SCH (10:20)
[2018-11-08] MEDS: Folic Acid 1 MG TAB PO SCH (10:21)
[2018-11-08] MEDS: guaiFENesin ER 600 MG TAB PO SCH ×2 (10:21→21:21)
[2018-11-08] MEDS ORDERED: EPOETIN ALFA-EPBX (ESRD) 10,000 UNIT/ML VIAL SC SCH (12:00)
--- NOTE | 2018-11-08 16:01 | PDOC.PN ---
- Subjective Encounter Start Date: 11/08/18 Encounter Start Time: 10:30 Subjective: pt up in bed complains of abd pain, she had diarrhea this am -: however diarrhea has been going on for 4-5 days. - Objective Resuscitation Status - Order Detail: 11/07/18 22:01 Resuscitation Status Routine Resuscitation Status: FULL: Full Resuscitation Vital Signs & Weight: Vital Signs (12 hours) Temp Pulse Resp BP Pulse Ox 11/08/18 15:45 98.1 F 78 12 148/67 H 94 L 11/08/18 07:58 98.1 F 71 16 152/69 H 95 Weight Admit Weight 130 lb 6.4 oz Weight 130 lb 6.4 oz I&O: 11/07/18 11/08/18 11/09/18 06:59 06:59 06:59 Intake Total 240 360 Output Total 400 Balance -160 360 Result Diagrams: 11/08/18 04:26 11/08/18 04:26 Phys Exam - Physical Examination Neck: no nodes, no JVD, supple, full ROM Respiratory: no wheezing, no rales, no rhonchi, wheezing present, clear to auscultation bilateral Cardiovascular: RRR, no significant murmur, no rub, gallop, irregular Gastrointestinal: soft, positive bowel sounds mild tenderness on palpation Musculoskeletal: no edema, pulses present, edema present Dx/Plan (1) C. difficile diarrhea Code(s): A04.72 - ENTEROCOLITIS D/T CLOSTRIDIUM DIFFICILE, NOT SPCF RECUR Status: Acute (2) ESRD (end stage renal disease) Code(s): N18.6 - END STAGE RENAL DISEASE Status: Chronic Comment: on HD (3) Hyperkalemia Code(s): E87.5 - HYPERKALEMIA Status: Acute (4) Elevated troponin Code(s): R74.8 - ABNORMAL LEVELS OF OTHER SERUM ENZYMES Status: Acute Comment: demand ischemia - Plan her K has improved after dialysis. Her diarrhea is cdiff with toxin positiv -: last episode was this am. will start her on oral vanco. if she feels better -: will discharge in am. -: s/p dialysis * . Review of Systems - Review of Systems Cardiovascular: negative: chest pain, palpitations, orthopnea, paroxysmal nocturnal dyspnea, edema, light headedness, other Gastrointestinal: Abdominal Pain, Diarrhea Genitourinary: negative: Dysuria, Frequency, Incontinence, Hematuria, Retention , Other - Medications/Allergies Allergies/Adverse Reactions: Allergies Allergy/AdvReac Type Severity Reaction Status Date / Time iodine Allergy Severe Verified 11/07/18 21:37 Penicillins Allergy Severe Verified 11/07/18 21:37 Medications: Current Medications Acetaminophen (Tylenol) 650 mg PO Q4H PRN PRN Reason: Headache/Fever/Mild Pain (1-3) Last Admin: 11/08/18 10:19 Dose: 650 mg Hydrocodone Bitart/Acetaminophen ([place] 5/325) 1 tab PO Q4H PRN PRN Reason: Moderate Pain (4-6) Albuterol/Ipratropium (Duoneb) 3 ml NEB [id number] PRN PRN Reason: SOB &/or Wheezing Artificial Tears (Tears Naturale) 2 drop EA EYE PRN PRN PRN Reason: Dry Eyes Aspirin (Ecotrin) 81 mg PO DAILY [facility] Last Admin: 11/08/18 10:20 Dose: 81 mg Atorvastatin Calcium (Lipitor) 10 mg PO DAILY [facility] Last Admin: 11/08/18 10:20 Dose: 10 mg Bisacodyl (Dulcolax) 10 mg AK DAILYPRN PRN PRN Reason: Constipation Carvedilol (Coreg) 25 mg PO BID-[facility] Clonidine (Catapres) 0.1 mg PO Q4H PRN PRN Reason: SBP Greater Than 170 Last Admin: 11/07/18 22:55 Dose: 0.1 mg Ferrous Sulfate (Feosol) 325 mg PO DAILY [facility] Last Admin: 11/08/18 10:20 Dose: 325 mg Folic Acid (Folvite) 0.5 mg PO DAILY [facility] Last Admin: 11/08/18 10:21 Dose: 0.5 mg Guaifenesin (Mucinex) 600 mg PO Q12HR [facility] Last Admin: 11/08/18 10:21 Dose: 600 mg Guaifenesin (Robitussin Sf) 200 mg PO Q4H PRN PRN Reason: Cough Hydralazine HCl (Apresoline) 10 mg SLOW IVP Q4H PRN PRN Reason: SBP > 180 and HR < 70 Metoclopramide HCl (Reglan) 5 mg IVP Q4H PRN PRN Reason: Nausea Pantoprazole Sodium (Protonix) 40 mg PO QAM [facility] Last Admin: 11/08/18 10:21 Dose: 40 mg Senna/Docusate Sodium (Senokot S) 2 tab PO BID PRN PRN Reason: Constipation Sevelamer Carbonate (Renvela) 2,400 mg PO TID-[facility] Last Admin: 11/08/18 10:19 Dose: 2,400 mg Sodium Chloride ([place] 0.65%) 0 ml EA NARE QIDPRN PRN PRN Reason: Nasal Congestion Vancomycin HCl (First Vancomycin) 125 mg PO DAILY [facility]
[2018-11-08] MEDS ORDERED: Vancomycin HCl 25 MG/ML Oral PO SCH (16:30)
[2018-11-08] MEDS: Carvedilol 25 MG TAB PO SCH (16:30)
[2018-11-09] MEDS: Acetaminophen 325 MG TAB PO PRN (05:20)
[2018-11-09] MEDS: Folic Acid 1 MG TAB PO SCH (08:40)
[2018-11-09] MEDS: Ferrous Sulfate 325 MG TAB PO SCH (08:41)
[2018-11-09] MEDS: Atorvastatin Calcium 10 MG TAB PO SCH (08:41)
[2018-11-09] MEDS: Aspirin 81 mg Enteric Coated Tablet PO SCH (08:41)
[2018-11-09] MEDS: Carvedilol 25 MG TAB PO SCH (08:41)
[2018-11-09] MEDS: guaiFENesin ER 600 MG TAB PO SCH (08:41)
[2018-11-09] MEDS: Sevelamer Carbonate 800 MG TAB PO SCH ×2 (08:41→11:02)
[2018-11-09] MEDS ORDERED: Vancomycin HCl 25 MG/ML Oral PO SCH ×2 (09:00)
[2018-11-09 11:48] VITALS: BP 117/57; TEMP 97.8
--- NOTE | 2018-11-10 12:02 | DIS ---
DATE OF ADMISSION: 11/07/2018 DATE OF DISCHARGE: 11/09/2018 DISCHARGE DIAGNOSES: As of the following; 1. Diarrhea secondary to Clostridium difficile. 2. End-stage renal disease, on dialysis. 3. Abdominal pain. 4. Hyperkalemia. 5. Elevated troponins. HOSPITAL COURSE: The patient is a 63-year-old female who prior to admission had about 4 days of abdominal pain and diarrhea. The patient has a history of C diff positive in the past. However, her toxin was negative. During this admission, when she presented to the hospital, in the hospital, she had one bout of diarrhea and after that she had no more. However, her stool was checked and she was toxin and antigen positive. At this time, she was started on a 7-day course of oral vancomycin. The patient, as I mentioned, had no more diarrhea after the 1st day that she was admitted. She underwent dialysis, was feeling okay, and was able to eat and drink without any abnormalities, and her diarrhea had stopped. PHYSICAL EXAMINATION: VITAL SIGNS: 97.8, 71, 16, 94% on room air, 132/62. GENERAL: She was awake, alert, and oriented x3. Did not appear in any distress CV: S1, S2 present. No murmurs, rubs, or gallops. ABDOMEN: Soft and nontender. Bowel sounds are present x2. EXTREMITIES: No edema. Pedal pulses are present x2. DISCHARGE MEDICATIONS: She will be sent home with 1. Ferrous sulfate 325 daily. 2. Vancomycin oral 125 mg p.o. q.6 hours. 3. Carvedilol 6.25 b.i.d. 4. Aspirin 81 mg daily. 5. Midodrine 5 mg at bedtime. 6. Atorvastatin 10 mg daily. 7. Folic acid 0.4 daily. 8. Protonix 40 mg q.a.m. 9. Renvela 2400, tablets p.o. t.i.d. DISCHARGE FOLLOWUP: Again, she will follow up with her PCP. Job ID: [id number]
--- NOTE | 2018-11-13 15:57 | EKG ---
Test Reason : CHEST PAIN Blood Pressure : / mmHG Vent. Rate : 074 BPM Atrial Rate : 074 BPM P-R Int : 000 ms QRS Dur : 098 ms QT Int : 426 ms P-R-T Axes : 000 -16 149 degrees QTc Int : 472 ms Atrial-paced rhythm with prolonged AV conduction Prolonged QT Abnormal ECG Confirmed by CLARITA JAIMES, GAURAV ([id number]), editorial assistant HAN CASTILLO ([id number]) on 11/13/2018 3:57:29 PM Referred By: Confirmed By:GAURAV OTTO MD
== END 2018-11-09 14:40 | disposition home or self-care (01) ==
LOC: ERS 18:07 → 2SW 21:08
PROVIDERS: ADMIT Family Medicine; ATTEND Family Medicine
DX: A04.72 Enterocolitis due to Clostridium difficile, not specified as recurrent (principal); I12.0 Hypertensive chronic kidney disease with stage 5 chronic kidney disease or end stage renal disease; N18.6 End stage renal disease; Z99.2 Dependence on renal dialysis; D63.1 Anemia in chronic kidney disease; E87.5 Hyperkalemia; I25.10 Atherosclerotic heart disease of native coronary artery without angina pectoris; I25.5 Ischemic cardiomyopathy; Z91.041 Radiographic dye allergy status; N25.81 Secondary hyperparathyroidism of renal origin; K52.9 Noninfective gastroenteritis and colitis, unspecified; E78.5 Hyperlipidemia, unspecified; D57.3 Sickle-cell trait; Z88.0 Allergy status to penicillin; Z95.810 Presence of automatic (implantable) cardiac defibrillator; Z95.5 Presence of coronary angioplasty implant and graft; Z87.891 Personal history of nicotine dependence; Z90.49 Acquired absence of other specified parts of digestive tract; Z79.82 Long term (current) use of aspirin; Z79.2 Long term (current) use of antibiotics; Z79.899 Other long term (current) drug therapy; Z98.890 Other specified postprocedural states
CPT/HCPCS: 71045; 80048; 80053; 82553; 83880; 84484 ×3; 85025 ×2; 87045; 87046; 87324; 87328; 87329; 87340; 87449 ×2; 87493; 87633; 87899 ×2; 93005; 99285; G0378 ×2; Q5105; 36415

== ENCOUNTER 2018-11-30 07:40 | Outpatient (CLI) | payer MEDICARE, OTHER ==
--- NOTE | 2018-11-30 08:16 | ULT ---
HEPATIC ULTRASOUND: HISTORY: Anemia with history of cholecystectomy. FINDINGS: Multiple longitudinal and transverse images of the liver are obtained using MultiHertz curvilinear tr ansducer. Real-time, color flow and spectral waveform Doppler analysis is used to evaluate the liver. The liver is unremarkable. Normal hepatopedal flow seen. No evidence of intrahepatic biliary dilatation seen. Common bile duct is of normal size measuring 4.8 mm. The spleen is unremarkable. No evidence of ascites seen. Visualized portions of the pancreas is unremarkable. Inferior vena cava and abdominal aorta are unremarkable. IMPRESSION: Previous cholecystectomy. No significant evidence of hepatic abnormality seen. Transcribed Date/Time: 11/30/2018 8:29 AM
== END 2018-11-30 07:41 | disposition home or self-care (01) ==
LOC: BICULT 07:40
PROVIDERS: ATTEND Physician Assistant Medical
DX: K31.811 Angiodysplasia of stomach and duodenum with bleeding (principal); K74.60 Unspecified cirrhosis of liver; D64.9 Anemia, unspecified; Z90.49 Acquired absence of other specified parts of digestive tract
CPT/HCPCS: 76705

== ENCOUNTER 2019-09-18 22:58 | Emergency (ER) | payer MEDICARE, OTHER ==
--- NOTE | 2019-09-18 23:58 | RAD ---
Exam: Chest one view HISTORY:Chest pain Comparison: 11/07/2018 FINDINGS: Pacing device: Stable dual lead left-sided transvenous defibrillator Cardiac silhouette:Cardiomegaly. There appears to be a coronary stent. Aorta: Atherosclerosis Pulmonary vessels: Normal Costophrenic angles: Clear LUNGS: Hyperinflation with chronic changes in the right lung base. Pneumothorax: None Osseous abnormalities: None IMPRESSION: 1. Atherosclerosis 2. Cardiomegaly. No evidence of congestive heart failure. 3. Chronic changes in the right lung base.
[2019-09-18 23:59] LABS: #Basophils 0.1 thou/uL (0.0-0.2); #Eosinphils 0.1 thou/uL (0.0-0.7); #Lymphocytes 1.2 thou/uL (1.20-3.40); #Monocytes 0.2 thou/uL (0.11-0.59); %Basophils 2.3 % (0.0-1.0); %Eosinophils 4.1 % (0.0-10.0); %Lymphocytes 47.2 % (21.0-51.0); %Monocytes 7.1 % (0.0-10.0); %Neutrophils 39.3 % (42.0-75.0); Mean Corpuscular Hemoglobin 38.4 pg (27.0-31.0); Mean Platelet Volume 7.7 fL (7.4-10.4); Platelet Count 163 thou/uL (130-400); RBC Distribution Width 13.9 % (11.5-14.5); Red Blood Cell (RBC) Count 2.33 mill/uL (4.20-5.40); White Blood Cell (WBC) Count 2.6 thou/uL (4.8-10.8)
[2019-09-19 00:51] LABS: ALT (SGPT) 22 U/L (8-55); AST (SGOT) 59 U/L (5-34); Albumin 3.7 g/dL (3.4-4.8); Alkaline Phosphatase 93 U/L (40-110); Anion Gap 19 mmol/L (10-20); BUN (Urea Nitrogen) 64 mg/dL (9.8-20.1); Bilirubin, Total 0.3 mg/dL (0.2-1.2); CK (CPK) 36 U/L (29-168); Calc. Creatinine Clearance 0 mL/min (70-130); Calcium 8.9 mg/dL (7.8-10.44); Carbon Dioxide 24 mmol/L (23-31); Chloride 93 mmol/L (98-107); Estimated GFR-MDRD 4; Globulin 2.9 g/dL (2.4-3.5); Glucose 73 mg/dL (80-115); Potassium 5.1 mmol/L (3.5-5.1); Protein, Total 6.6 g/dL (6.0-8.3); Sodium 131 mmol/L (136-145)
== END 2019-09-19 01:53 | disposition home or self-care (01) ==
LOC: ERS 22:58
DX: G62.9 Polyneuropathy, unspecified (principal); I13.2 Hypertensive heart and chronic kidney disease with heart failure and with stage 5 chronic kidney disease, or end stage renal disease; N18.6 End stage renal disease; I50.9 Heart failure, unspecified; I25.10 Atherosclerotic heart disease of native coronary artery without angina pectoris; J45.909 Unspecified asthma, uncomplicated; D64.9 Anemia, unspecified; F17.210 Nicotine dependence, cigarettes, uncomplicated
CPT/HCPCS: 36415; 71045; 80053; 82550; 85025; 93005

== ENCOUNTER 2019-11-02 11:37 | Observation (INO) | payer MEDICARE, OTHER ==
--- NOTE | 2019-11-02 12:12 | RAD ---
CHEST 1 VIEW: Date: 11/02/2019 HISTORY: Chest pain. COMPARISON: 09/18/2019. FINDINGS: Left ICD. Stable cardiomegaly. Stable pleural and parenchymal changes in the lung bases with some inc reased markings in the mid and upper lung zones, also stable. No confluent pneumonia, overt edema, or other acute process. IMPRESSION: Stable cardiomegaly and some minimal pleural and parenchymal changes in the bases. No significant new process. POS: [facility]
[2019-11-02 12:31] LABS: Hemoglobin 8.9 g/dL (12.0-16.0); Mean Corpuscular HGB CONC 35.6 g/dL (32.0-36.0); Mean Corpuscular Hemoglobin 36.3 pg (27.0-31.0); Platelet Count 176 thou/uL (130-400); RBC Distribution Width 13.9 % (11.5-14.5); Red Blood Cell (RBC) Count 2.44 mill/uL (4.20-5.40); White Blood Cell (WBC) Count 1.9 thou/uL (4.8-10.8)
[2019-11-02 12:32] LABS: Anisocytosis SLIGHT = 6-15 cells (100X) (0-5/hpf); Band 13 % (5-11); Eosinophils 4 % (0-10); Lymphocytes 18 % (21-51); MDiff Complete? YES; Metamyelocyte 2 % (0-0); Monocytes 4 % (0-10); Myelocyte 1 % (0-0); Neutrophil 52 % (42-75); Poikilocytosis SLIGHT = 6-15 cells (100X) (0-5/hpf); Reactive Lymphocytes 5 % (0-10)
[2019-11-02 12:36] LABS: ALT (SGPT) 40 U/L (8-55); AST (SGOT) 123 U/L (5-34); Albumin 3.4 g/dL (3.4-4.8); Alkaline Phosphatase 103 U/L (40-110); Anion Gap 23 mmol/L (10-20); BUN (Urea Nitrogen) 52 mg/dL (9.8-20.1); Bilirubin, Total 0.4 mg/dL (0.2-1.2); Calc. Creatinine Clearance 0 mL/min (70-130); Calcium 9.3 mg/dL (7.8-10.44); Carbon Dioxide 21 mmol/L (23-31); Chloride 95 mmol/L (98-107); Estimated GFR-MDRD 5; Globulin 3.2 g/dL (2.4-3.5); Glucose 86 mg/dL (80-115); Potassium 4.5 mmol/L (3.5-5.1); Protein, Total 6.6 g/dL (6.0-8.3); Sodium 134 mmol/L (136-145)
[2019-11-02 12:53] LABS: CK (CPK) 42 U/L (29-168); Lipase 30 U/L (8-78)
[2019-11-02] MEDS ORDERED: Ondansetron PF 4 MG/2 ML Vial ONE (12:53)
[2019-11-02 12:59] LABS: CKMB 0.7 ng/mL (0-6.6)
[2019-11-02] MEDS ORDERED: Cefepime 1 GM VIAL ONE (13:27)
[2019-11-02] MEDS ORDERED: Cefepime 2 GM VIAL ONE (13:29)
[2019-11-02] MEDS ORDERED: Vancomycin HCl 1.25 GM in Sodium Chloride 0.9% 250 ML 250 ML IVPB SCH (14:00)
[2019-11-02 16:26] LABS: Lactic Acid 2.9 mmol/L (0.5-2.2)
[2019-11-02] MEDS ORDERED: Ondansetron PF 4 MG/2 ML Vial IVP PRN ×2 (16:35→19:02)
[2019-11-02] MEDS ORDERED: Ondansetron ODT 8 MG TAB PO PRN (16:35)
[2019-11-02] MEDS ORDERED: Acetaminophen 325 MG TAB PO PRN (16:35)
[2019-11-02 16:49] LABS: HBSAg Index 0.17 S/CO (0-0.99); Hep B Surf Ag Non-Reactive S/CO (NonReactive)
[2019-11-02 16:57] VITALS: BMI 24.7
[2019-11-02 17:19] LABS: HBSAB Concentration 17.31 mIU/mL; Hep C IgG Ab Reflex HepC Qnt (NonReactive); Hep C Index 13.51 S/CO (0-0.79)
[2019-11-02 17:50] LABS: Hep B Core Total Ab Reactive (NonReactive); Hep B Core Total Index 6.89 S/CO (0-0.79); Hep B Surf AB Reactive (NonReactive)
[2019-11-02] MEDS ORDERED: hydrALAZINE 20 MG/ML VIAL SLOW IVP PRN (19:01)
[2019-11-02] MEDS ORDERED: Ondansetron ODT 4 MG TAB PO PRN (19:02)
[2019-11-02] MEDS ORDERED: Calcium Carbonate 500 MG ChewTAB PO PRN (19:02)
[2019-11-02] MEDS ORDERED: Ventolin HFA Inhaler 60 PUFF INHALER INH PRN (19:04)
--- NOTE | 2019-11-02 19:05 | PRG ---
DATE OF SERVICE: 11/02/2019 HISTORY OF PRESENT ILLNESS: Ms. Sullivan is a 64-year-old black female with ESRD and presented initially for chest pain. Review of her history suggested she had a cough which was productive of clear sputum. She denies any associated fever or chills with this. She also had intermittent diarrhea. She is now admitted for further management. She is also being ruled out for COVID-19 infection. We were now consulted for her maintenance hemodialysis. The patient missed her dialysis this morning, currently undergoing hemodialysis for a 3-hour session. PAST MEDICAL HISTORY: Coronary artery disease, ESRD, status post CHF, status post GI bleed secondary to an AV malformation, longstanding hypertension, history of noncompliance, chronic anemia from chronic GI bleed, history of depression, sickle cell trait, and history of chronic hepatitis C. PAST SURGICAL HISTORY: Status post upper GI endoscopy with cauterization of the AV malformation, status post AV fistula placement, status post cholecystectomy, status post cuffed hemodialysis catheter placement, status post bilateral carotid endarterectomy, and status post pacemaker defibrillation placement. SOCIAL HISTORY: The patient is single, lives in [place]. Smoked for 30 years, half a pack a day for the last several years, currently not smoking. Occasional alcohol intake. No IV drug abuse. Status post blood transfusion. ALLERGIES: PENICILLIN. TRAUMA: None. IMMUNIZATIONS: Up-to-date. HOSPITALIZATIONS: Please see past medical history. FAMILY HISTORY: Positive family history of ESRD. PHYSICAL EXAMINATION: VITAL SIGNS: Blood pressure is noted at 130/70, heart rate 70. GENERAL: The patient is noted to be awake, alert, comfortable, not in overt distress. SKIN: Adequate turgor. HEENT: Pinkish conjunctivae. Anicteric sclerae. NECK: No neck mass. No carotid bruits. No JVD. CHEST: No deformities. LUNGS: Clear breath sounds. HEART: Normal sinus rhythm. No murmur. No gallops. No rubs. ABDOMEN: Globular, soft. Nontender. No masses. EXTREMITIES: No edema. No deformities. MEDICATIONS: Medications noted to be; 1. Status post vancomycin. 2. Zofran 8 mg IV q.6 p.r.n. 3. Acetaminophen q.4 p.r.n. LABORATORIES: Of November 02, 2019, white count 1.9 and hemoglobin 8.9. Sodium 134, potassium 4.5, chloride 95, carbon dioxide 21, BUN 52, creatinine 10.21, glucose 86, lactic acid is 3, calcium 9.3, and CK 42. Chest x-ray; no overt CHF except for increased lung markings. No infiltrates. ASSESSMENT AND PLAN: 1. Mild congestive heart failure - hemodialysis with fluid removal of about 3 L will be done today. 2. End-stage renal disease. We will continue current Thursday, Thursday, and Thursday hemodialysis regimen. Again, fluid removal only as tolerated. 3. Anemia. Restart Epogen 10,000 units subcu q.week. 4. Cough - the patient being ruled out for COVID-19 infection. 5. Precautions are being taken. Job ID: [id number]
--- NOTE | 2019-11-02 19:28 | HP ---
PRIMARY CARE PHYSICIAN: Dr. Roman. PRIMARY VICE PROVOST: Dr. Reyna. CHIEF COMPLAINT: Chest discomfort along with nausea, vomiting, and generalized weakness. HISTORY OF PRESENT ILLNESS: The patient is a 64-year-old female with end-stage renal disease, on hemodialysis and coronary artery disease, presented to the emergency room with above complaints. The patient presented to the emergency room with generalized weakness along with nausea and vomiting along with diarrhea. She vomited several times over the last 2 to 3 days. The vomitus was nonbilious. It contained food, which she had eaten. She was unable to tolerate oral food. She also had several episodes of diarrhea. She denies eating outside or sick contacts. No recent travel reported. She denies any fever. She had some upper abdominal discomfort, which was more or less generalized. The abdominal pain was crampy, worse during the episodes of vomiting. She denies any hematemesis, melena, or hematochezia. Due to generalized weakness, she also missed her hemodialysis on Thursday as well as earlier today. She has some chest discomfort as well that was midsternal, worse during the vomiting. In the emergency room, her initial vital signs showed temperature 98.3, respirations of 17, pulse of 75 with a blood pressure 184/94, O2 saturation 95% on room air. Her initial EKG showed sinus rhythm without significant ST-T wave changes. Due to possible viral syndrome, a COVID-19 test has been sent. Her influenza screen was negative. PAST MEDICAL HISTORY: 1. End-stage renal disease, on hemodialysis. 2. Chronic systolic heart failure, ejection fraction 20% to 25%, status post AICD. 3. History of GI bleeding due to AV malformation. 4. History of Clostridium difficile colitis last year. 5. Coronary artery disease, status post stent placement. 6. Peripheral vascular disease. 7. History of ventricular fibrillation arrest requiring AICD. 8. Chronic anemia due to renal insufficiency. 9. Secondary hyperparathyroidism. 10. Hypertension. 11. Asthma. PAST SURGICAL HISTORY: 1. AICD placement. 2. Cardiac stent placement. 3. Dialysis access. 4. Hemorrhoidectomy. 5. Bilateral carotid endarterectomy. 6. Cholecystectomy. ALLERGIES: THE PATIENT IS ALLERGIC TO: 1. IODINE. 2. PENICILLIN. CURRENT HOME MEDICATIONS: 1. Aspirin 81 mg daily. 2. Albuterol inhaler as needed. 3. Tylenol as needed. 4. Lipitor 10 mg daily. 5. Carvedilol 6.25 mg 3 times a day. 6. Midodrine 5 mg at bedtime. 7. Renvela 2400 mg 3 times daily. 8. Epogen as directed. SOCIAL HISTORY: The patient currently lives at home with her family. She denies current use of smoking, alcohol, or drug use. She is a former smoker. FAMILY HISTORY: Negative for heart disease. REVIEW OF SYSTEMS: All other review of systems was reviewed and was found negative. PHYSICAL EXAMINATION: VITAL SIGNS: As discussed above. GENERAL: A 64-year-old female, ill-appearing. HEENT: Head, atraumatic and normocephalic. Sclerae are anicteric. Moist mucous membranes. No oral lesion. NECK: Supple. No JVD. No carotid bruit. LUNGS: Showed diminished air entry at bilateral bases along with bibasilar rales, mainly on the left. There was no significant wheezing. No accessory muscle use. HEART: S1 and S2 present. Regular. No rubs or gallops. ABDOMEN: Soft and nontender. Bowel sounds present. EXTREMITIES: No edema or calf tenderness. NEUROLOGIC: Grossly nonfocal. Moves all 4 extremities. PSYCHIATRIC: Alert, awake, and oriented x3. SKIN: Warm and dry. LYMPH NODES: No palpable lymph nodes in the neck. PERIPHERAL VASCULAR: Radial pulses are palpable bilaterally. MUSCULOSKELETAL: No joint swelling or tenderness. LABORATORY FINDINGS: CBC showed WBC 1.9 with hemoglobin 8.9, hematocrit 24.9, platelet of 176, bandemia of 13%. Chemistries showed sodium 134, potassium 4.5, chloride 95, bicarb 21, BUN 52, creatinine 10.21. BNP was 6475. Troponin was 0.057. Please note that the patient's troponins are chronically elevated. Lactic acid was 3.0. Repeat lactic acid 2.9. CRP was negative. Procalcitonin level was 0.09. Hepatitis C antibody was positive. Influenza screen was negative. EKG by my review showed sinus rhythm with first-degree AV block and left ventricular hypertrophy. Chest x-ray by my review showed cardiomegaly with pleural and parenchymal changes at the bases. IMPRESSION: 1. Generalized weakness, multifactorial. 2. Nausea and vomiting with diarrhea. Rule out infectious gastroenteritis. 3. The patient is a COVID-19 rule out. Please note that tests have been sent from the ER. 4. End-stage renal disease. The patient missed 2 sessions of dialysis. 5. Mild intermittent asthma. 6. Gastroesophageal reflux disease. 7. Coronary artery disease with ischemic cardiomyopathy, status post automatic implantable cardioverter-defibrillator. 8. History of ventricular fibrillation. 9. Chronically elevated troponin due to renal insufficiency. 10. History of gastrointestinal bleeding due to arteriovenous malformation. 11. Coronary artery disease, status post stent placement. 12. Peripheral vascular disease. 13. Hypertension. 14. Former smoker. 15. Iodine and penicillin allergy. 16. Hyponatremia. 17. Metabolic acidosis/lactic acidosis, probably due to missed hemodialysis. 18. Chronic leukopenia. The patient has lymphopenia as well this admission. PLAN: The patient will be monitored on the telemetry unit. She will undergo emergent hemodialysis. She will be placed on isolation for COVID. Stool workup including Clostridium difficile will be sent. The patient received 1 dose of antibiotics in the emergency room. We will hold antibiotics for now. AICD will be interrogated. We will resume home medications. We will add inhalers as needed. Nephrology consult for dialysis management. The patient understands the above plan of care. Job ID: [id number]
[2019-11-02] MEDS: Saccharomyces boulardii 250 MG CAP PO SCH (21:46)
[2019-11-02] MEDS: Carvedilol 3.125 MG TAB PO SCH (21:47)
[2019-11-02] MEDS: Midodrine HCl 5 MG TAB PO SCH (21:47)
[2019-11-02] MEDS: Famotidine 20 MG TAB PO SCH (21:47)
[2019-11-03 05:05] LABS: #Lymphocytes 0.6 thou/uL (1.20-3.40); #Monocytes 0.2 thou/uL (0.11-0.59); #Neutrophils 1.2 thou/uL (1.40-6.50); %Basophils 0.4 % (0.0-1.0); %Eosinophils 1.6 % (0.0-10.0); %Lymphocytes 30.1 % (21.0-51.0); %Neutrophils 57.9 % (42.0-75.0); Hemoglobin 8.1 g/dL (12.0-16.0); Mean Corpuscular HGB CONC 34.6 g/dL (32.0-36.0); Mean Corpuscular Hemoglobin 35.6 pg (27.0-31.0); Mean Platelet Volume 7.9 fL (7.4-10.4); Platelet Count 104 thou/uL (130-400); RBC Distribution Width 13.7 % (11.5-14.5); Red Blood Cell (RBC) Count 2.28 mill/uL (4.20-5.40); White Blood Cell (WBC) Count 2.1 thou/uL (4.8-10.8)
[2019-11-03 05:47] LABS: CKMB 0.7 ng/mL (0-6.6)
[2019-11-03 06:02] LABS: ALT (SGPT) 50 U/L (8-55); AST (SGOT) 151 U/L (5-34); Albumin 3.3 g/dL (3.4-4.8); Alkaline Phosphatase 110 U/L (40-110); Anion Gap 15 mmol/L (10-20); BUN (Urea Nitrogen) 15 mg/dL (9.8-20.1); Bilirubin, Total 0.9 mg/dL (0.2-1.2); Calc. Creatinine Clearance 11 mL/min (70-130); Calcium 9.2 mg/dL (7.8-10.44); Carbon Dioxide 30 mmol/L (23-31); Chloride 97 mmol/L (98-107); Estimated GFR-MDRD 11; Globulin 2.9 g/dL (2.4-3.5); Glucose 83 mg/dL (80-115); Lipase 17 U/L (8-78); Potassium 3.6 mmol/L (3.5-5.1); Protein, Total 6.2 g/dL (6.0-8.3); Sodium 138 mmol/L (136-145)
[2019-11-03] MEDS: Sevelamer Carbonate 800 MG TAB PO SCH ×3 (07:59→15:39)
[2019-11-03] MEDS: Carvedilol 3.125 MG TAB PO SCH ×3 (08:00→20:41)
[2019-11-03] MEDS: Aspirin 81 mg Enteric Coated Tablet PO SCH (08:00)
[2019-11-03] MEDS: Atorvastatin Calcium 10 MG TAB PO SCH (08:00)
[2019-11-03] MEDS: Acetaminophen 325 MG TAB PO PRN (11:31)
--- NOTE | 2019-11-03 16:13 | PDOC.HOSPP ---
- Subjective Encounter Date: 11/03/19 Encounter Time: 15:30 Subjective: Patient seen and examined for gen weakness. Some nausea. No vomiting. 1 episode of loose stool this AM. No fever or chills. No other complaints. No overnight events - Objective Vital Signs & Weight: Vital Signs (12 hours) Temp Pulse Resp BP BP Pulse Ox 11/03/19 15:40 97.7 F 75 18 145/74 H 94 L 11/03/19 11:37 99.3 F 73 20 143/68 H 93 L 11/03/19 08:00 99.0 F 75 18 152/72 H 94 L 11/03/19 04:45 99 F 76 18 119/64 94 L Weight Weight 131 lb 5 oz I&O: 11/02/19 11/03/19 11/04/19 06:59 06:59 06:59 Intake Total 100 Balance 100 Result Diagrams: 11/03/19 04:43 11/03/19 04:43 Additional Labs: Laboratory Tests 11/02/19 11/03/19 11/03/19 15:56 04:43 04:43 Lactic Acid 2.9 H 2.0 Troponin I 0.066 H Radiology Reviewed by me: Yes (CXR - reviewed) EKG Reviewed by me: Yes (Tele paced) Hospitalist ROS - Review of Systems Respiratory: denies: cough, dry, shortness of breath, hemoptysis, SOB with excertion, pleuritic pain, sputum, wheezing, other Cardiovascular: denies: chest pain, palpitations, orthopnea, paroxysmal noc. dyspnea, edema, light headedness, other - Medication Medications: Active Medications Generic Name Dose Route Start Last Admin Trade Name Freq PRN Reason Stop Dose Admin Acetaminophen 650 mg 11/02/19 19:02 11/03/19 11:31 Tylenol PO 650 mg Q4H PRN Administration Headache/Fever/Mild Pain (1-3) Aspirin 81 mg 11/03/19 09:00 11/03/19 08:00 Ecotrin PO 81 mg DAILY ALONZO Administration Atorvastatin Calcium 10 mg 11/03/19 09:00 11/03/19 08:00 Lipitor PO 10 mg DAILY ALONZO Administration Carvedilol 6.25 mg 11/02/19 21:00 11/03/19 15:39 Coreg PO 6.25 mg TID ALONZO Administration Famotidine 20 mg 11/02/19 21:00 11/02/19 21:47 Pepcid PO 20 mg QPM ALONZO Administration Midodrine 5 mg 11/02/19 21:00 11/02/19 21:47 Proamatine PO 5 mg HS ALONZO Administration Ondansetron HCl 4 mg 11/02/19 19:02 11/03/19 11:31 Zofran Odt PO 4 mg Q6H PRN Administration Nausea/Vomiting Saccharomyces Boulardii 250 mg 11/02/19 21:00 11/02/19 21:46 Florastor PO 250 mg HS ALONZO Administration Sevelamer Carbonate 2,400 mg 11/03/19 08:00 11/03/19 15:39 Renvela PO 2,400 mg TID-WM ALONZO Administration - Exam General Appearance: NAD Heart: RRR, no rubs, normal peripheral pulses Heart - other findings: no heaves Respiratory: no rales, no ronchi, normal chest expansion, rhonchi Gastrointestinal: soft, non-tender, non-distended, normal bowel sounds Extremities: no cyanosis, no clubbing, no edema Neurological: no new deficit Psychiatric: normal affect, A&O x 3 Hosp A/P - Plan DVT proph w/SCDs 1. Generalized weakness, multifactorial. 2. Nausea and vomiting with diarrhea. Suspected C diff colitis 3. The patient is a COVID-19 rule out. 4. End-stage renal disease on dialysis. 5. Mild intermittent asthma. 6. Gastroesophageal reflux disease. 7. Coronary artery disease with ischemic cardiomyopathy, status post AICD. 8. History of ventricular fibrillation. 9. Chronically elevated troponin due to renal insufficiency. 10. History of gastrointestinal bleeding due to arteriovenous malformation. 11. Coronary artery disease, status post stent placement. 12. Peripheral vascular disease. 13. Hypertension. 14. Former smoker. 15. Iodine and penicillin allergy. 16. Hyponatremia. 17. Metabolic acidosis/lactic acidosis, probably due to missed hemodialysis. 18. Chronic leukopenia. PLAN: Start PO Vancomyin - I d/w Dr Chopra Cont florastor Dialysis per Nephrology Cont ASA/BB/Statins Advance diet to Full liqd DC in 24 hr if stable
[2019-11-03] MEDS ORDERED: Vancomycin HCl 25 MG/ML Oral PO SCH (16:15)
[2019-11-03] MEDS: Midodrine HCl 5 MG TAB PO SCH (20:41)
[2019-11-03] MEDS: Famotidine 20 MG TAB PO SCH (20:41)
[2019-11-03] MEDS: Saccharomyces boulardii 250 MG CAP PO SCH (20:42)
[2019-11-04] MEDS: Vancomycin HCl 25 MG/ML Oral PO SCH ×5 (04:35→23:11)
[2019-11-04] MEDS: Aspirin 81 mg Enteric Coated Tablet PO SCH (08:42)
[2019-11-04] MEDS: Sevelamer Carbonate 800 MG TAB PO SCH ×3 (08:42→17:40)
[2019-11-04] MEDS: Carvedilol 3.125 MG TAB PO SCH ×3 (08:42→21:00)
[2019-11-04] MEDS: Atorvastatin Calcium 10 MG TAB PO SCH (08:42)
[2019-11-04] MEDS ORDERED: Preparation H HC 1% Cream 26 GM TUBE TOP PRN (14:44)
--- NOTE | 2019-11-04 17:15 | PDOC.HOSPP ---
- Subjective Encounter Date: 11/04/19 Encounter Time: 14:00 Subjective: Patient seen and examined for C diff. No Nausea. Tolerating full liqd diet. Had 3 episodes of diarrhea earlier today. No Abd pain. No other complaints. No overnight events - Objective Vital Signs & Weight: Vital Signs (12 hours) Temp Pulse Resp BP Pulse Ox 11/04/19 16:26 98.3 F 77 18 141/67 H 94 L 11/04/19 11:55 98.2 F 70 18 153/86 H 94 L 11/04/19 08:32 98.1 F 82 16 167/84 H 93 L Weight Weight 131 lb 5 oz I&O: 11/03/19 11/04/19 11/05/19 06:59 06:59 06:59 Intake Total 100 1240 Output Total 2260 Balance 100 1240 -2260 Result Diagrams: 11/03/19 04:43 11/03/19 04:43 EKG Reviewed by me: Yes (Tele SR) Hospitalist ROS - Review of Systems Respiratory: denies: cough, dry, shortness of breath, hemoptysis, SOB with excertion, pleuritic pain, sputum, wheezing, other Cardiovascular: denies: chest pain, palpitations, orthopnea, paroxysmal noc. dyspnea, edema, light headedness, other - Medication Medications: Active Medications Generic Name Dose Route Start Last Admin Trade Name Freq PRN Reason Stop Dose Admin Acetaminophen 650 mg 11/02/19 19:02 11/03/19 11:31 Tylenol PO 650 mg Q4H PRN Administration Headache/Fever/Mild Pain (1-3) Aspirin 81 mg 11/03/19 09:00 11/04/19 08:42 Ecotrin PO 81 mg DAILY ALONZO Administration Atorvastatin Calcium 10 mg 11/03/19 09:00 11/04/19 08:42 Lipitor PO 10 mg DAILY ALONZO Administration Carvedilol 6.25 mg 11/02/19 21:00 11/04/19 14:56 Coreg PO 6.25 mg TID ALONZO Administration Famotidine 20 mg 11/02/19 21:00 11/03/19 20:41 Pepcid PO 20 mg QPM ALONZO Administration Hydrocortisone Sodium Succinate 0 gm 11/04/19 14:44 11/04/19 16:28 Preparation H Hc Cream TOP 1 applic TID PRN Administration Anal/Rectal Irritations Midodrine 5 mg 11/02/19 21:00 11/03/19 20:41 Proamatine PO 5 mg HS ALONZO Administration Ondansetron HCl 4 mg 11/02/19 19:02 11/03/19 11:31 Zofran Odt PO 4 mg Q6H PRN Administration Nausea/Vomiting Saccharomyces Boulardii 250 mg 11/02/19 21:00 11/03/19 20:42 Florastor PO 250 mg HS ALONZO Administration Sevelamer Carbonate 2,400 mg 11/03/19 08:00 11/04/19 11:57 Renvela PO 2,400 mg TID-WM ALONZO Administration Vancomycin HCl 125 mg 11/03/19 23:59 11/04/19 11:57 First Vancomycin PO 125 mg Q6HR ALONZO Administration - Exam General Appearance: NAD Neck: no JVD Heart: RRR, no gallops Respiratory: no wheezes, no ronchi Gastrointestinal: non-tender, non-distended, normal bowel sounds Extremities: no cyanosis Psychiatric: normal affect, A&O x 3 Hosp A/P - Plan DVT proph w/SCDs 1. Generalized weakness, multifactorial. 2. Nausea and vomiting with diarrhea due to C diff colitis 3. The patient is a COVID-19 rule out. 4. End-stage renal disease on dialysis. 5. Mild intermittent asthma. 6. GERD. 7. Coronary artery disease with ischemic cardiomyopathy, status post AICD. 8. History of ventricular fibrillation. 9. Chronically elevated troponin due to renal insufficiency. 10. History of gastrointestinal bleeding due to arteriovenous malformation. 11. Coronary artery disease, status post stent placement. 12. Peripheral vascular disease. 13. Hypertension. 14. Former smoker. 15. Iodine and penicillin allergy. 16. Hyponatremia. 17. Metabolic acidosis/lactic acidosis, probably due to missed hemodialysis. 18. Chronic leukopenia. 19. Thrombocytopenia. PLAN: Cont PO Vancomyin for C diff with Florastor Dialysis per Nephrology Cont ASA Cont BB/Statins Advance diet to GI soft Stable for dc - Waiting for COVID testing No SQ Heparin due to thrombocytopenia
[2019-11-04] MEDS: Saccharomyces boulardii 250 MG CAP PO SCH (21:00)
[2019-11-04] MEDS: Midodrine HCl 5 MG TAB PO SCH (21:00)
[2019-11-04] MEDS: Famotidine 20 MG TAB PO SCH (21:00)
[2019-11-04] MEDS: Acetaminophen 325 MG TAB PO PRN (23:11)
[2019-11-05] MEDS: Vancomycin HCl 25 MG/ML Oral PO SCH (05:44)
[2019-11-05 05:54] LABS: ALT (SGPT) 24 U/L (8-55); AST (SGOT) 31 U/L (5-34); Albumin 3.3 g/dL (3.4-4.8); Alkaline Phosphatase 109 U/L (40-110); Anion Gap 14 mmol/L (10-20); BUN (Urea Nitrogen) 6 mg/dL (9.8-20.1); Bilirubin, Total 0.6 mg/dL (0.2-1.2); Calc. Creatinine Clearance 13 mL/min (70-130); Calcium 9.4 mg/dL (7.8-10.44); Carbon Dioxide 29 mmol/L (23-31); Chloride 100 mmol/L (98-107); Estimated GFR-MDRD 13; Globulin 3.1 g/dL (2.4-3.5); Glucose 87 mg/dL (80-115); Potassium 3.4 mmol/L (3.5-5.1); Protein, Total 6.4 g/dL (6.0-8.3); Sodium 140 mmol/L (136-145)
[2019-11-05 06:00] LABS: Eosinophils 2 % (0-10); Hemoglobin 9.1 g/dL (12.0-16.0); Lymphocytes 34 % (21-51); MDiff Complete? YES; Macrocytosis SLIGHT = 6-15 cells (100X) (0-5/hpf); Mean Corpuscular HGB CONC 32.3 g/dL (32.0-36.0); Mean Corpuscular Hemoglobin 34.1 pg (27.0-31.0); Mean Platelet Volume 8.7 fL (7.4-10.4); Monocytes 10 % (0-10); Neutrophil 54 % (42-75); Platelet Count 91 thou/uL (130-400); Platelet Morphology Comment Appears Decreased; RBC Distribution Width 13.9 % (11.5-14.5); Red Blood Cell (RBC) Count 2.66 mill/uL (4.20-5.40); White Blood Cell (WBC) Count 2.2 thou/uL (4.8-10.8)
[2019-11-05 08:41] VITALS: BP 146/77; TEMP 96.8
[2019-11-05] MEDS: Sevelamer Carbonate 800 MG TAB PO SCH (09:01)
[2019-11-05] MEDS: Atorvastatin Calcium 10 MG TAB PO SCH (09:02)
[2019-11-05] MEDS: Aspirin 81 mg Enteric Coated Tablet PO SCH (09:02)
[2019-11-05] MEDS: Carvedilol 3.125 MG TAB PO SCH (09:02)
--- NOTE | 2019-11-07 06:11 | DIS ---
DATE OF ADMISSION: 11/02/2019 DATE OF DISCHARGE: 11/05/2019 DISCHARGE DISPOSITION: Home. FOLLOWUP: 1. Follow up with primary care physician, Dr. Roman in 1 week. 2. Follow up with Gastroenterology, Dr. Knutson in 2 to 3 weeks. ALLERGIES: THE PATIENT IS ALLERGIC TO IODINE AND PENICILLIN. DISCHARGE MEDICATIONS: 1. Oral vancomycin 125 mg every 6 hourly. 2. Florastor 250 mg daily. All other home medications were left unchanged. The patient was seen and examined on the day of discharge. Denies any new complaints. No chest pain, shortness of breath, palpitations reported. TEST PENDING AT DISCHARGE: Hepatitis C RNA. Primary care physician advised to follow. INPATIENT DIRECTOR PHARMACY SERVICES: Nephrology, Dr. Reyna for maintenance hemodialysis. BRIEF HOSPITAL COURSE: The patient is a 64-year-old female with end-stage renal disease, on hemodialysis and coronary artery disease, presented to the emergency room with chest discomfort along with nausea, vomiting, and generalized weakness. She was a COVID rule out that later came back negative. Symptoms gradually improved after hemodialysis. Stool workup was positive for C diff antigen, toxin negative. I discussed with Dr. Chopra, who recommended completing a course of oral vancomycin. Blood culture remained negative. All other stool studies were essentially negative. She is tolerating oral diet. Nausea, vomiting, diarrhea have completely resolved. A COVID testing has been negative. She appears stable for discharge. FINAL DIAGNOSES: 1. Generalized weakness with nausea, vomiting, and diarrhea probably secondary to C diff colitis. 2. COVID-19 has been ruled out. 3. End-stage renal disease, on hemodialysis. 4. Mild intermittent asthma. 5. Gastroesophageal reflux disease. 6. Coronary artery disease with ischemic cardiomyopathy, status post AICD. 7. History of ventricular fibrillation. 8. Chronically elevated troponins due to renal insufficiency. 9. History of GI bleeding due to AV malformation. 10. History of coronary stent placement. 11. Peripheral vascular disease. 12. Hypertension. 13. Former smoker. 14. Iodine and penicillin allergy. 15. Hyponatremia. 16. Metabolic acidosis/lactic acidosis probably secondary to missed hemodialysis. 17. Chronic leukopenia. 18. Thrombocytopenia. SIGNIFICANT LABORATORY DATA: Procalcitonin was 0.09. Lactic acid was 3.0 on admission and 2.0 at discharge. Job ID: [id number]
--- NOTE | 2019-11-08 13:27 | EKG ---
Test Reason : Blood Pressure : / mmHG Vent. Rate : 073 BPM Atrial Rate : 073 BPM P-R Int : 210 ms QRS Dur : 104 ms QT Int : 380 ms P-R-T Axes : 057 -23 171 degrees QTc Int : 418 ms Sinus rhythm with 1st degree A-V block Left ventricular hypertrophy with repolarization abnormality Abnormal ECG Confirmed by ALVARO MORENO DO ([id number]), industrial editor TAMMI MEZA ([id number]) on 11/08/2019 1:27:25 PM Referred By: Confirmed By:ALVARO MORENO DO
[2019-11-10 19:13] LABS: Hep C PCR-Quant HCV Not Detected IU/mL (.)
== END 2019-11-05 11:40 | disposition home or self-care (01) ==
LOC: ERS 11:37 → 2SW 13:30
PROVIDERS: ADMIT Internal Medicine; ATTEND Internal Medicine
DX: R07.89 Other chest pain (principal); R53.1 Weakness; I13.2 Hypertensive heart and chronic kidney disease with heart failure and with stage 5 chronic kidney disease, or end stage renal disease; I50.22 Chronic systolic (congestive) heart failure; N18.6 End stage renal disease; D63.1 Anemia in chronic kidney disease; N25.81 Secondary hyperparathyroidism of renal origin; I25.10 Atherosclerotic heart disease of native coronary artery without angina pectoris; I44.0 Atrioventricular block, first degree; I73.9 Peripheral vascular disease, unspecified; J45.909 Unspecified asthma, uncomplicated; I25.5 Ischemic cardiomyopathy; K21.9 Gastro-esophageal reflux disease without esophagitis; D72.819 Decreased white blood cell count, unspecified; E87.2 Acidosis; Z79.82 Long term (current) use of aspirin; Z79.899 Other long term (current) drug therapy; Z87.891 Personal history of nicotine dependence; Z88.0 Allergy status to penicillin; Z91.041 Radiographic dye allergy status; Z95.5 Presence of coronary angioplasty implant and graft; Z95.810 Presence of automatic (implantable) cardiac defibrillator; Z99.2 Dependence on renal dialysis; Z11.59 Encounter for screening for other viral diseases
CPT/HCPCS: 71045; 80053 ×3; 82550; 82553 ×2; 82728; 83605 ×2; 83615; 83630; 83690 ×2; 83880; 84145; 84484 ×2; 85025 ×3; 86140; 86704; 86706; 86803; 87040; 87045; 87046; 87324; 87340; 87427 ×2; 87449 ×2; 87493; 87522; 87804 ×2; 93005; 96365; 96367; 96375; 99285; G0378 ×5; U0001; 36415; 90935; G0257; J0692; J2405; J3370; J7050; Q0162

== ENCOUNTER 2019-12-15 23:02 | Emergency (ER) | payer MEDICARE, OTHER ==
[2019-12-15] MEDS ORDERED: Ondansetron ODT 8 MG TAB ONE (23:42)
[2019-12-15 23:46] LABS: #Eosinphils 0.1 thou/uL (0.0-0.7); #Lymphocytes 0.8 thou/uL (1.20-3.40); #Monocytes 0.5 thou/uL (0.11-0.59); #Neutrophils 2.8 thou/uL (1.40-6.50); %Basophils 0.3 % (0.0-1.0); %Eosinophils 1.6 % (0.0-10.0); %Lymphocytes 19.9 % (21.0-51.0); %Monocytes 11.4 % (0.0-10.0); %Neutrophils 66.9 % (42.0-75.0); Mean Corpuscular HGB CONC 34.6 g/dL (32.0-36.0); Mean Corpuscular Hemoglobin 34.2 pg (27.0-31.0); Mean Platelet Volume 8.3 fL (7.4-10.4); Platelet Count 196 thou/uL (130-400); RBC Distribution Width 14.4 % (11.5-14.5); Red Blood Cell (RBC) Count 2.91 mill/uL (4.20-5.40); White Blood Cell (WBC) Count 4.2 thou/uL (4.8-10.8)
[2019-12-16 00:11] LABS: ALT (SGPT) 15 U/L (8-55); AST (SGOT) 26 U/L (5-34); Albumin 3.4 g/dL (3.4-4.8); Alkaline Phosphatase 94 U/L (40-110); Anion Gap 33 mmol/L (10-20); BUN (Urea Nitrogen) 108 mg/dL (9.8-20.1); Bilirubin, Total 0.3 mg/dL (0.2-1.2); Calc. Creatinine Clearance 0 mL/min (70-130); Calcium 9.9 mg/dL (7.8-10.44); Carbon Dioxide 11 mmol/L (23-31); Chloride 91 mmol/L (98-107); Estimated GFR-MDRD 3; Globulin 3.5 g/dL (2.4-3.5); Glucose 65 mg/dL (80-115); Lipase 46 U/L (8-78); Potassium 5.3 mmol/L (3.5-5.1); Protein, Total 6.9 g/dL (6.0-8.3); Sodium 130 mmol/L (136-145)
--- NOTE | 2019-12-17 13:23 | EKG ---
Test Reason : Blood Pressure : / mmHG Vent. Rate : 074 BPM Atrial Rate : 074 BPM P-R Int : 198 ms QRS Dur : 098 ms QT Int : 452 ms P-R-T Axes : 014 089 221 degrees QTc Int : 501 ms Normal sinus rhythm with sinus arrhythmia Prolonged QT Abnormal ECG Confirmed by PHYLICIA BRUNSON ([id number]), editorial intern HAN CASTILLO ([id number]) on 12/17/2019 1:23:20 PM Referred By: Confirmed By:PHYLICIA BRUNSON
== END 2019-12-16 01:19 | disposition home or self-care (01) ==
LOC: ERS 23:02
DX: I13.2 Hypertensive heart and chronic kidney disease with heart failure and with stage 5 chronic kidney disease, or end stage renal disease (principal); N18.6 End stage renal disease; I50.9 Heart failure, unspecified; I25.10 Atherosclerotic heart disease of native coronary artery without angina pectoris; J45.909 Unspecified asthma, uncomplicated; F17.210 Nicotine dependence, cigarettes, uncomplicated; Z79.82 Long term (current) use of aspirin; Z79.899 Other long term (current) drug therapy; R19.7 Diarrhea, unspecified; R11.2 Nausea with vomiting, unspecified
CPT/HCPCS: 36415; 80053; 83690; 85025; 93005; Q0162

== ENCOUNTER 2020-02-09 12:55 | Outpatient (CLI) | payer MEDICARE, OTHER ==
--- NOTE | 2020-02-09 13:53 | MMO ---
Bilateral MAMMO Bilat Screen [facility]DI+[facility]Y. CLINICAL HISTORY: Patient is 64 years old and is seen for screening. The patient has no family history of breast cancer. The patient has no personal history of cancer. VIEWS: The views performed were: bilateral craniocaudal with tomosynthesis and bilateral mediolateral oblique with tomosynthesis. FILMS COMPARED: The present examination has been compared to prior imaging studies performed at [facility] on 03/08/2018, and at [facility] on 09/18/2010, 01/11/2013 and 06/01/2015. This study has been interpreted with the assistance of computer-aided detection. MAMMOGRAM FINDINGS: The breasts are heterogeneously dense, which could obscure a lesion on mammography. Finding 1: There are stable benign appearing calcifications seen in both breasts. Finding 2: There are stable benign appearing densities seen in both breasts. There are no suspicious masses, suspicious calcifications, or new areas of architectural distortion. IMPRESSION: THERE IS NO MAMMOGRAPHIC EVIDENCE OF MALIGNANCY. A ROUTINE FOLLOW-UP MAMMOGRAM IN 1 YEAR IS RECOMMENDED. THE RESULTS OF THIS EXAM WERE SENT TO THE PATIENT. ACR BI-RADS Category 2 - Benign finding MAMMOGRAPHY NOTE: 1. A negative mammogram report should not delay a biopsy if a dominant of clinically suspicious mass is present. 2. Approximately 10% to 15% of breast cancers are not detected by mammography. 3. Adenosis and dense breasts may obscure an underlying neoplasm. Reported by: PAULINA CHURCH MD Electonically Signed: [id number]
== END 2020-02-09 12:56 | disposition home or self-care (01) ==
LOC: BICMAMMO 12:55
PROVIDERS: ATTEND Family Medicine
DX: Z12.31 Encounter for screening mammogram for malignant neoplasm of breast (principal)
CPT/HCPCS: 77063; 77067

== ENCOUNTER 2020-04-05 09:13 | Outpatient (CLI) | payer MEDICARE, OTHER ==
--- NOTE | 2020-04-05 11:58 | CT ---
EXAM: CT angiogram abdomen and pelvis with IV contrast and 3-D reconstructions CT angiogram bilateral lower extremities with IV contrast and 3-D reconstruction PROVIDED CLINICAL HISTORY: Peripheral vascular disease. Patient on hemodialysis. Patient complains of left leg pain. COMPARISON: CT angiogram abdomen on 07/23/2018 FINDINGS: The heart remains enlarged. The pericardial effusion has resolved. Dense vascular calcifications are seen in the thoracic aorta as well as in the coronary arteries. AICD leads are partially imaged. Tiny right pleural effusion is present. Stable linear area of scarring is again seen in the right karen g base. Minimal linear atelectasis versus scarring is present at the left lung base. Postcholecystectomy changes are noted. The kidneys are atrophic bilaterally with prominent vascular calcifications involving the kidneys gallito aterally. A small fluid attenuation hypodense lesion is again seen inferior pole left kidney compatible with a renal cyst. Scattered calcifications are seen in each kidney which may represent ei ther vascular calcifications are nonobstructing renal calculi. The liver, spleen, pancreas, and bilateral adrenal glands demonstrate a normal CT appearance for gamaliel rial phase of imaging. Uterus has a normal CT appearance for patient's age. A 2.3 cm increased density structure is seen in the left adnexal region which may represent lesion wi thin the patient's left ovary. Further evaluation with ultrasound is recommended. Loops of small bowel are normal in caliber. Dense vascular calcifications are seen in the abdominal aorta and involving the iliac arteries with e ccentric atherosclerotic plaque also present. There are dense calcifications at the origin of each renal artery with severe narrowing at the origins of each renal artery and along the course of each r enal artery. Dense vascular calcifications are seen at the origins of the mesenteric vessels. Origin of the OLGA is not visualized due to dense vascular calcifications. There is moderate narrowing involving the origin of the superior mesenteric artery with mild narrowing at the origin of the celiac artery. Dense irregular vascular calcifications are seen at the aortic bifurcation which obscures the lumen o f the most proximal bilateral common iliac arteries, but there is probably severe degrees of narrowing involving each common iliac artery proximally. Dense vascular calcification are seen along the course of the iliac arteries bilaterally which limits adequate evaluation, but there are multifocal mild and moderate degrees of narrowing present. Severe focal narrowing is seen involving t he distal left external iliac artery. There is moderate to severe narrowing involving the right internal iliac artery with obscuration of the origin of the left internal iliac artery, but there is probably severe narrowing at the origin of the left internal iliac artery. Bilateral lower extremity runoff: Right lower extremity: Dense vascular calcifications are seen throughout the right lower extremity ar terial vessels. This limits evaluation of luminal diameter. There is moderate focal area of narrowing seen within the proximal right profunda femoral artery with moderate to severe focal area o f narrowing involving the proximal right superficial femoral artery as well as additional multifocal [id number] degrees of narrowing seen involving the right superficial femoral artery. Multifocal vascular calcifications and mild degrees of narrowing are seen throughout the tibial peroneal vessels with focal area of critical stenosis involving the proximal right anterior tibial ar evaristo. The dorsalis pedis and posterior tibial arteries are seen at the level of the ankle. Left lower extremity: Regular atherosclerotic calcifications involve left common femoral artery with at least mild degrees of narrowing present. There is dense calcification seen at the origin of the left superficial femoral artery with at least moderate and possibly severe degree of narrowing. There is atherosclerotic irregularity seen throughout the left superficial femoral artery with multifocal [id number] degrees of narrowing. Moderate narrowing is seen in the region of the add uctor canal on the left. The left popliteal artery is patent. The left posterior tibial artery demonstrate multifocal areas of occlusion and reconstitution.. Multifocal irregularity is seen involv ing the peroneal artery with suggestion of moderate degree of narrowing involving the mid peroneal artery. The origin of the left anterior tibial artery is obscured due to dense vascular calcification s. Mild degrees of narrowing are seen involving the distal left anterior tibial artery. IMPRESSION: 1. Increased density masslike structure left adnexal region. Pelvic ultrasound is recommended. 2. Cardiomegaly. 3. Tiny right pleural effusion. 4. Dense atherosclerotic vascular calcifications and atherosclerotic plaque is seen throughout the ar terial vessels. 5. Multifocal areas of irregularity involving the iliac as well as bilateral lower extremity arterial vessels. Dense vascular calcifications are seen involving the origins of the proximal bilateral common iliac arteries, and the degree of narrowing is likely severe in severity. 6. Short segment of critical stenosis involving the proximal right anterior tibial artery. 7. Multifocal areas of occlusion and reconstitution of the left posterior tibial artery with limited evaluation of the lumen of the proximal left anterior tibial artery.
[2020-04-05] MEDS ORDERED: Iopamidol 370 76% 100 ML VIAL ONE (13:24)
== END 2020-04-05 09:14 | disposition home or self-care (01) ==
LOC: CT 09:13
PROVIDERS: ATTEND Thoracic Surgery (Cardiothoracic Vascular Surgery)
DX: I70.212 Atherosclerosis of native arteries of extremities with intermittent claudication, left leg (principal); N89.8 Other specified noninflammatory disorders of vagina; I51.9 Heart disease, unspecified; J90 Pleural effusion, not elsewhere classified
CPT/HCPCS: 75635; Q9967

== ENCOUNTER 2020-04-27 11:51 | Inpatient (IN) | payer MEDICARE, OTHER ==
[~2020-04-27 11:51] MED LIST changes: -Gentamicin Sulfate 80 MG in Premix Bag 1 BAG IVPB SCH; +Iopamidol 370 76% 100 ML VIAL ONE
[2020-04-27] MEDS ORDERED: Albuterol Sulfate 2.5 mg/0.5 ml Neb ONE (12:18)
[2020-04-27] MEDS ORDERED: Albuterol 200 PUFF (6.7GM INHALER) ONE (12:18)
[2020-04-27] MEDS ORDERED: Ondansetron PF 4 MG/2 ML Vial ONE (12:19)
[2020-04-27] MEDS ORDERED: Morphine 4 MG/ML VIAL ONE (12:19)
--- NOTE | 2020-04-27 12:57 | RAD ---
EXAM: XR Chest 1 View Portable PROVIDED CLINICAL HISTORY: Small bowel obstruction, shortness of breath COMPARISON: 11/02/2019 FINDINGS: The cardiac and mediastinal silhouette is unchanged in appearance. Left subclavian cardiac pacing dev ice and atherosclerosis redemonstrated. No focal consolidation, pleural fluid or pneumothorax apparent. IMPRESSION: No evidence for an acute cardiopulmonary process.
[2020-04-27 13:17] LABS: #Lymphocytes 0.5 thou/uL (1.20-3.40); #Monocytes 0.1 thou/uL (0.11-0.59); #Neutrophils 4.8 thou/uL (1.40-6.50); %Eosinophils 0.5 % (0.0-10.0); %Lymphocytes 8.9 % (21.0-51.0); %Monocytes 2.2 % (0.0-10.0); %Neutrophils 88.4 % (42.0-75.0); Hemoglobin 8.1 g/dL (12.0-16.0); Mean Corpuscular HGB CONC 33.6 g/dL (32.0-36.0); Mean Corpuscular Hemoglobin 33.7 pg (27.0-31.0); Mean Platelet Volume 7.8 fL (7.4-10.4); Platelet Count 135 thou/uL (130-400); RBC Distribution Width 17.4 % (11.5-14.5); Red Blood Cell (RBC) Count 2.41 mill/uL (4.20-5.40); White Blood Cell (WBC) Count 5.4 thou/uL (4.8-10.8)
[2020-04-27] MEDS ORDERED: Ondansetron ODT 4 MG TAB ONE (13:18)
--- NOTE | 2020-04-27 13:37 | CT ---
EXAM: CT Abdomen Pelvis WO Con PROVIDED CLINICAL HISTORY: Abdominal pain COMPARISON: 10/23/2017 FINDINGS: The heart appears enlarged. The visualized lung bases are free of significant opacity. There is trace right pleural fluid. The solid abdominal organs are suboptimally evaluated in the absence of IV contrast material but demo nstrate an unremarkable unenhanced CT appearance with the exception of renal atrophy. The gallbladder is surgically absent. The appendix appears normal. There are several loops of ectatic fluid-filled small bowel within left mid abdomen. There is no evidence for bowel obstruction. There is a stable small hyperdense mass in the left adnexal region. There is trace free fluid present within the cul-de-sac. Extensive atherosclerotic vascular calcifications are seen. The osseous structures demonstrate no concerning lytic or blastic lesions. IMPRESSION: No definite evidence for an acute process.
[2020-04-27 13:42] LABS: ALT (SGPT) 21 U/L (8-55); AST (SGOT) 66 U/L (5-34); Albumin 3.5 g/dL (3.4-4.8); Alkaline Phosphatase 141 U/L (40-110); Anion Gap 26 mmol/L (10-20); BUN (Urea Nitrogen) 48 mg/dL (9.8-20.1); Bilirubin, Total 1.1 mg/dL (0.2-1.2); Calc. Creatinine Clearance 0 mL/min (70-130); Calcium 8.4 mg/dL (7.8-10.44); Carbon Dioxide 18 mmol/L (23-31); Chloride 90 mmol/L (98-107); Estimated GFR-MDRD 6; Globulin 2.7 g/dL (2.4-3.5); Glucose 114 mg/dL (80-115); Lipase 21 U/L (8-78); Potassium 4.7 mmol/L (3.5-5.1); Protein, Total 6.2 g/dL (6.0-8.3); Sodium 129 mmol/L (136-145)
[2020-04-27 14:04] LABS: CKMB 1.1 ng/mL (0-6.6)
[2020-04-27] MEDS ORDERED: Famotidine/PF 20 mg/2ml Vial ONE (14:51)
[2020-04-27] MEDS ORDERED: diphenhydrAMINE 50 MG/ML VIAL ONE (14:51)
[2020-04-27] MEDS ORDERED: methylPREDNISolone Sod Succ/PF 125 MG/2 ML VIAL ONE (14:52)
[2020-04-27 15:30] LABS: Bacteria/HPF None Seen HPF (None Seen); Bilirubin Negative (Negative); Blood, Urine Trace (Negative); Clarity Clear (Clear); Glucose, Urine (Dipstick) Normal (Negative); Ketone, Urine Negative (Negative); Leukocyte Negative Leu/uL (Negative); Nitrite Negative (Negative); Protein, Urine (Dipstick) 30 mg/dL (Neg-Trace); RBC/HPF 0-3 HPF (0-3); Specific Gravity, Urine 1.009 (1.002-1.036); Squamous Epithelial 0-3 HPF (0-3); Urobilinogen Normal mg/dL (Less than 2); WBC/HPF 0-3 HPF (0-3)
--- NOTE | 2020-04-27 16:25 | CT ---
CTA Angio Chest W WO Con 04/27/2020 4:17 PM Indication: History of severe stomach pain and shortness of breath Technique: Multiple CTA images were obtained of the thorax with IV contrast. 3-D rendering: MIP angelica nstructed images were created and reviewed. Comparison: Prior CTA of the aorta dated April 05, [address] PE examination dated July. Findings: Pulmonary arteries: There is a nearly occlusive filling defect seen within the segmental pulmonary a rtery to the posterior medial right lower lobe. No additional filling defect is evident within the remaining visualized central or segmental pulmonary arteries. Heart and Aorta: There is moderate cardiomegaly. There is mild interstitial edema affecting both karen gs. Mediastinum:There are coronary artery and thoracic aortic calcification. No enlarged lymph nodes are evident. There is a dual-lead pacemaker overlying left chest wall. Lungs:There is scattered emphysema. There are areas of subsegmental volume loss involving the right m iddle lobe and right lower lobe. Pleural space: There are small pleural effusions bilaterally, right greater than left. Upper Abdomen: The kidneys are atrophic. There is reflux of contrast within the hepatic veins. Osseous Structures: There is diffuse sclerosis of the visualized skeletal structures likely reflecti ve of underlying renal osteodystrophy. Soft tissues:No abnormality. Other findings:None. Impression: 1. Nearly occlusive pulmonary embolus involving a segmental pulmonary arterial branch of the posterio r medial right lower lobe. 2. Findings of mild CHF or volume overload 3. Findings called to Jess Jane at 4:20 PM on 04/27/2020.
[2020-04-27] MEDS ORDERED: Apixaban 2.5 MG TAB PO SCH (17:30)
[2020-04-27 18:12] LABS: Troponin I 0.085 ng/mL (< 0.028)
--- NOTE | 2020-04-27 20:28 | PDOC.HHP ---
Hospitalist HPI - History of Present Illness Shortness of breath History of Present Illness: This is a 65-year-old female patient with a history of ESRD Thursday dialysis schedule, hypertension, smoking. She was at [facility] vascular access center getting his fistula cleaned out and it was noted that she became short of breath abdominal pain and left lower leg pain.. She denied any associated chest pain or wheezing. She was sent to the ED for further evaluation. Due to concerns for PE, CTA was done at presentation which revealed a right pulmonary embolism. She also had abdominal pain for which a CT scan of abdomen pelvis showed no acute events. She was started on apixaban 2.5 mg twice daily for renal dosing. She also received Solu-Medrol, morphine, ondansetron, Pepcid and breathing treatment. Given her issues with her fistula, nephrology was consulted and discussed the need to evaluate her fistula for further dialysis. Patient has also not had dialysis on Thursday which she missed because he said she was having serious pain in her legs. Given that she will need dialysis and further fistula assessment, she was admitted for further evaluation. Of note patient was recently discharged on 11/05/2019 When she was admitted on account of generalized weakness Hospitalist ROS - Review of Systems Constitutional: denies: fever, chills, sweats, weakness Respiratory: reports: shortness of breath, SOB with excertion. denies: cough, dry, hemoptysis Cardiovascular: denies: chest pain, palpitations, orthopnea, paroxysmal noc. dyspnea Gastrointestinal: denies: nausea, vomiting, abdominal pain, diarrhea Genitourinary: denies: dysuria, frequency, incontinence Musculoskeletal: reports: leg pain Neurological: denies: weakness, numbness, incoordination, change in speech - Medication Medications: Medications: Aspirin 81 mg daily Carvedilol 6.25 twice daily Atorvastatin 10 mg daily Proventil inhaler 2 puffs every 4 as needed Allergies: Iodine, penicillin Hospitalist History - Past Medical History Cardiac: reports: HTN Other Medical History: ESRD, peripheral vascular disease, chronic leukopenia, thrombocytopenia - Past Surgical History Other Surgical History: AICD, cardiac stent, carotid endarterectomy, cholecystectomy - Social History Other Social History: She lives alone - Exam General - other findings: Patient in bed, in no acute distress. Heart - other findings: S1-S2 present. No murmurs gallops or rubs. Respiratory - other findings: Mild bilateral wheezing. No rhonchi. Gastrointestinal - other findings: Soft, nontender. Bowel sounds present and normal. Extremities - other findings: Left arm fistula. No cyanosis or clubbing Neurological: cranial nerve grossly intact, no focal deficits Psychiatric: A&O x 3 Hospitalist Results - Labs Result Diagrams: 04/27/20 13:04 04/27/20 13:04 Lab results: WBC 5.4 thou/uL (4.8-10.8) 04/27/20 13:04 Hgb 8.1 g/dL (12.0-16.0) L 04/27/20 13:04 Hct 24.1 % (36.0-47.0) L 04/27/20 13:04 MCV 100.0 fL (78.0-98.0) H 04/27/20 13:04 Plt Count 135 thou/uL (130-400) 04/27/20 13:04 Neutrophils % 88.4 % (42.0-75.0) H 04/27/20 13:04 Sodium 129 mmol/L (136-145) L 04/27/20 13:04 Potassium 4.7 mmol/L (3.5-5.1) 04/27/20 13:04 Chloride 90 mmol/L (98-107) L 04/27/20 13:04 Carbon Dioxide 18 mmol/L (23-31) L 04/27/20 13:04 BUN 48 mg/dL (9.8-20.1) H 04/27/20 13:04 Creatinine 8.72 mg/dL (0.6-1.1) H 04/27/20 13:04 Glucose 114 mg/dL (80-115) 04/27/20 13:04 Calcium 8.4 mg/dL (7.8-10.44) 04/27/20 13:04 Total Bilirubin 1.1 mg/dL (0.2-1.2) 04/27/20 13:04 AST 66 U/L (5-34) H 04/27/20 13:04 ALT 21 U/L (8-55) 04/27/20 13:04 Alkaline Phosphatase 141 U/L (40-110) H 04/27/20 13:04 CK-MB (CK-2) 1.1 ng/mL (0-6.6) 04/27/20 13:04 Troponin I 0.085 ng/mL (< 0.028) H 04/27/20 17:37 Serum Total Protein 6.2 g/dL (6.0-8.3) 04/27/20 13:04 Albumin 3.5 g/dL (3.4-4.8) 04/27/20 13:04 Lipase 21 U/L (8-78) 04/27/20 13:04 Urine Ketones Negative mg/dL (Negative) 04/27/20 14:12 Urine Blood Trace (Negative) A 04/27/20 14:12 Urine Nitrite Negative (Negative) 04/27/20 14:12 Ur Leukocyte Esterase Negative Migue/uL (Negative) 04/27/20 14:12 Urine RBC 0-3 HPF (0-3) 04/27/20 14:12 Urine WBC 0-3 HPF (0-3) 04/27/20 14:12 Ur Squamous Epith Cells 0-3 HPF (0-3) 04/27/20 14:12 Urine Bacteria None Seen HPF (None Seen) 04/27/20 14:12 Hospitalist H&P A/P - Plan Plan: This is a 65-year-old female patient with a history of ESRD who is being admitted on account of pulmonary embolism and lack of adequate dialysis access. She will be evaluated for temporary dialysis placement and fistula assessment. Acute pulmonary embolism Presented with shortness of breath Started on apixaban 2.5 mg twice daily We will continue monitoring Plan oxygen as needed. ESRD Possible dialysis tomorrow Will require temporary dialysis access and more permanent access. Nephrology consulted Shortness of breath Likely secondary to PE Possible COPD has admission Started on Solu-Medrol Continue duo nebs Close monitoring. Elevated troponin Mildly elevated at 0.06 We will trend Likely secondary to ESRD as this is chronic. Left leg pain This is chronic Continue as needed pain medications Abdominal pain Abdominal exam was benign No acute findings on CT scan We will continue monitoring.
[2020-04-27 21:27] LABS: Troponin I 0.063 ng/mL (< 0.028)
[2020-04-28] MEDS ORDERED: diphenhydrAMINE 50 MG/ML VIAL IVP SCH (01:30)
--- NOTE | 2020-04-28 02:23 | CON ---
DATE OF CONSULTATION: 04/27/2020 Ms. Sullivan is a 65-year-old black female with ESRD -on maintenance hemodialysis Thursday, Thursday, Thursday, admitted for shortness of breath. During the workup, she was found to have a right pulmonary embolism. The shortness of breath started while she was undergoing a procedure with an AV fistulogram. An attempt to improve the patency was done, but during the said procedure, she developed an acute shortness of breath. She was sent to the ER for further management. The patient improved dramatically with neb treatment. However, due to suspicion of PE, a CT angio was done, which confirmed diagnosis of pulmonary embolism. We are being consulted for management of her ESRD and a possibility of dialyzing tomorrow. Her last dialysis was last Thursday, which was about two days ago. REVIEW OF SYSTEMS: Positive for shortness of breath, actually improved with neb treatment. No chest pain. No syncopal episode. No productive cough. No fever or chills. No diarrhea. No constipation. No dysuria. No urinary frequency. No joint pains. No headache. No diplopia. Appetite energy level is fair. No dysuria. No hematochezia. No melena. HOME MEDICATIONS: Includes the following, 1. Vancomycin 125 mg p.o. q.6. 2. Sevelamer 800 mg 4 tablets t.i.d. with meals. 3. Florastor 250 mg at bedtime. 4. Midodrine 5 mg at bedtime. 5. Coreg 6.25 mg p.o. t.i.d. 6. Procrit 56312 units subcu q.7 days. 7. Aspirin 81 mg tablet once a day. 8. Atorvastatin 10 mg tablet at bedtime. 9. Tylenol 650 mg q.4 hours. 10. Ventolin oral inhaler two puffs q.4h p.r.n. Current hospital medications includes Eliquis 2.5 mg tablet b.i.d. PAST MEDICAL HISTORY: 1. ESRD, currently on maintenance hemodialysis. 2. Status post upper GI bleed. 3. History of chronic heavy alcohol intake. 4. History of chronic hepatitis C, sickle cell trait, status post upper GI AV malformation. 5. History of depression. 6. Peripheral vascular disease. 7. Hypertension. 8. Hyperlipidemia. PAST SURGICAL HISTORY: Status post multiple upper GI endoscopy, status post lower GI endoscopy, status post AV fistula placement, status post left carotid endarterectomy, status post cuffed hemodialysis catheter placement. SOCIAL HISTORY: The patient lives in [place]. Lives alone. Smoked for 42 years, averaging one pack a day, currently still using alcohol, status post blood transfusion. 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 FAMILY HISTORY: Positive family history of ESRD. ALLERGIES: PENICILLIN. TRAUMA: None. IMMUNIZATIONS: Up-to-date. HOSPITALIZATIONS: Please see past medical history. PHYSICAL EXAMINATION: VITAL SIGNS: Blood pressure is noted at 162/70, heart rate 72, respiratory rate 18, temperature 98.2, O2 saturation 100%. GENERAL: Awake, alert, comfortable, not in overt distress. SKIN: Adequate turgor. HEENT: She has a slightly pale conjunctivae. Anicteric sclerae. No neck mass. No carotid bruits. No JVD. CHEST: No deformities. LUNGS: Clear breath sounds. HEART: Normal sinus rhythm. No murmur. No gallops. No rubs. ABDOMEN: Globular, soft, nontender. No masses. EXTREMITIES: No edema. No deformities. NEUROLOGICAL: Awake, oriented to 3 spheres. Moving all extremities. No tremors. No asterixis. No ataxia. LABORATORY DATA: April 27, 2020; white count 5.4, hemoglobin 8.1, sodium 129, potassium 4.7, chloride 90, carbon dioxide 18, BUN 40, creatinine 8.72, glucose 114, calcium 8.4. Troponin I is 0.085. AST 66, ALT 21, alkaline phosphatase 141, albumin 3.5. CT of the chest and thorax shows nearly occlusive filling defect within the segmental pulmonary artery to the posterior medial right lobe. CT scan of the abdomen and pelvis, no acute process. Chest x-ray of April 27, 2020, within normal. ASSESSMENT AND PLAN: 1. Acute pulmonary embolism-this could have been related to the previous procedure where the patient was undergoing AV fistulogram with attempt to open the vessels. She will be anticoagulated. Being considered for either IV heparin or Eliquis. If Eliquis is to be given, we would suggest 2.5 mg p.o. b.i.d. for renal dosing. The patient is clinically stable. She is oxygenating adequately. 2. End-stage renal disease, stable. She has a nonfunctioning AV fistula. The plan is to consult Surgery for placement of a cuffed hemodialysis catheter in a.m. Once we have the dialysis access, we will proceed with dialyzing the patient. 3. [place] [address] units subcu every week. 4. Overall prognosis remains guarded. Recheck CBC, basic metabolic profile in a.m. ESRD-review of her KT/V suggests she is adequately dialyzed with the current dialysis regimen. We will continue her Thursday, Thursday, and Thursday hemodialysis regimen. Tomorrow, she will receive dialysis since she was not able to receive dialysis today. Job ID: [id number]
[2020-04-28 04:17] LABS: Anion Gap 25 mmol/L (10-20); BUN (Urea Nitrogen) 55 mg/dL (9.8-20.1); Calc. Creatinine Clearance 6 mL/min (70-130); Calcium 8.3 mg/dL (7.8-10.44); Carbon Dioxide 18 mmol/L (23-31); Chloride 92 mmol/L (98-107); Estimated GFR-MDRD 5; Glucose 123 mg/dL (80-115); Sodium 130 mmol/L (136-145)
[2020-04-28 04:21] LABS: #Lymphocytes 0.3 thou/uL (1.20-3.40); #Monocytes 0.1 thou/uL (0.11-0.59); #Neutrophils 4.3 thou/uL (1.40-6.50); %Eosinophils 0.1 % (0.0-10.0); %Lymphocytes 7.1 % (21.0-51.0); %Monocytes 1.1 % (0.0-10.0); %Neutrophils 91.7 % (42.0-75.0); Anisocytosis SLIGHT = 6-15 cells (100X) (0-5/hpf); Hemoglobin 7.5 g/dL (12.0-16.0); MDiff Complete? YES; Macrocytosis SLIGHT = 6-15 cells (100X) (0-5/hpf); Mean Corpuscular HGB CONC 33.7 g/dL (32.0-36.0); Mean Corpuscular Hemoglobin 34.5 pg (27.0-31.0); Mean Platelet Volume 8.5 fL (7.4-10.4); Platelet Count 96 thou/uL (130-400); Platelet Morphology Comment Appears Decreased; RBC Distribution Width 17.3 % (11.5-14.5); Red Blood Cell (RBC) Count 2.18 mill/uL (4.20-5.40); White Blood Cell (WBC) Count 4.7 thou/uL (4.8-10.8)
[2020-04-28] MEDS ORDERED: Heparin 10,000 UNITS/ 10 ML VIAL ONE (09:16)
[2020-04-28] MEDS: Atorvastatin Calcium 10 MG TAB PO SCH (10:24)
[2020-04-28] MEDS: Apixaban 2.5 MG TAB PO SCH ×2 (10:24→21:00)
[2020-04-28] MEDS: Carvedilol 6.25 MG TAB PO SCH ×3 (10:24→21:00)
[2020-04-28] MEDS: Aspirin 81 mg Enteric Coated Tablet PO SCH (10:24)
[2020-04-28 10:25] LABS: HBSAg Index 0.14 S/CO (0-0.99); Hep B Surf Ag Non-Reactive S/CO (NonReactive)
[2020-04-28] MEDS ORDERED: Heparin 1,000 UNITS/ML VIAL FS SCH (10:30)
[2020-04-28] MEDS ORDERED: Lidocaine 1% w/Epinephrine 1:100K 20 ML VIAL IJ SCH (10:30)
--- NOTE | 2020-04-28 10:40 | PRG ---
DATE OF SERVICE: 04/28/2020 SUBJECTIVE: Ms. Sullivan is a 65-year-old black female with ESRD and being followed up by the [facility] for management of her ESRD as well as hemodialysis. The patient was initially admitted for shortness of breath. She was diagnosed to have a pulmonary embolism. She has been started on Eliquis at 2.5 mg tablet b.i.d. This morning, she is feeling better. No worsening of the shortness of breath and she is hemodynamically stable. Her access is not functional - the AV graft. We have consulted Surgery. The plan is to place a temporary femoral dialysis catheter with the patient. OBJECTIVE: VITAL SIGNS: Blood pressure is 135/74, heart rate 75, respiratory rate 16, temperature 98.1, O2 saturation 98%. GENERAL: The patient is awake, alert, comfortable, not in overt distress. SKIN: Adequate turgor. HEENT: Slightly pale conjunctivae. Anicteric sclerae. NECK: No neck mass. No carotid bruits. No JVD. CHEST: No deformities. LUNGS: Clear breath sounds. No wheezing. No crackles. HEART: Normal sinus rhythm. No murmur. No gallops. No rubs. ABDOMEN: Globular, soft, nontender. No masses. EXTREMITIES: No edema. No deformities. MEDICATIONS: Medications of April 28, 2020, was reviewed. LABORATORY DATA: On April 28, 2020: White count 4.7, hemoglobin 7.5. Sodium 130, potassium 5, chloride 92, carbon dioxide 18, BUN 55, creatinine 9.31, glucose 123, calcium 8.3. ASSESSMENT AND PLAN: 1. Acute pulmonary embolism - currently on Eliquis at 2.5 mg b.i.d. - adjusted for renal dosing. She is hemodynamically stable and oxygenating adequately. 2. Anemia. We will give 1 unit of packed RBC with dialysis. The patient has had a history of gastrointestinal bleed secondary to arteriovenous malformation/angiodysplasia. We will hold off Epogen due to the recent acute thromboembolic phenomenon. 3. End stage renal disease, stable, hemodialysis today for 3 hours due to the fact that she missed her dialysis Thursday. Our plan is to resume back on a Thursday, Thursday, and Thursday hemodialysis. Dr. Ludwig will place a temporary femoral dialysis catheter and Dr. Zhang will place a cuffed dialysis catheter this coming Thursday. 4. Recheck CBC, basic metabolic panel in a.m., transfuse 1 unit of packed RBC with dialysis. Job ID: [id number]
[2020-04-28 14:57] LABS: SARS-CoV-2 MS2 Positive; SARS-CoV-2 N Gene Negative; SARS-CoV-2 S Gene Negative; SARS-CoV-2 by NAA Not Detected (NotDetected); SARS-CoV-2 orf1ab Negative
--- NOTE | 2020-04-28 21:29 | PDOC.HOSPP ---
- Subjective Encounter Date: 04/28/20 Encounter Time: 13:00 Subjective: Patient was seen and examined in bed. She had a generally good night. Feels a bit tight in the chest otherwise generally comfortable. Denies any chest pain - Objective Vital Signs & Weight: Vital Signs (12 hours) Temp Pulse Pulse Resp BP BP Pulse Ox 04/28/20 19:40 98.9 F 75 18 110/68 95 04/28/20 17:18 98.4 F 79 16 130/67 96 04/28/20 17:03 98.6 F 77 16 128/63 96 04/28/20 16:12 97.6 F 76 16 141/74 H 96 Weight Weight 138 lb 10.732 oz I&O: 04/27/20 04/28/20 04/29/20 06:59 06:59 06:59 Intake Total 480 Output Total 2000 Balance -1520 Result Diagrams: 04/28/20 03:27 04/28/20 03:27 Hospitalist ROS - Medication Medications: Active Medications Generic Name Dose Route Start Last Admin Trade Name Deana PRN Reason Stop Dose Admin Apixaban 2.5 mg 04/28/20 09:00 04/28/20 21:00 Apixaban 2.5 Mg Tab PO 2.5 mg BID ALONZO Administration Aspirin 81 mg 04/28/20 09:00 04/28/20 10:24 Aspirin 81 Mg Enteric Coated Tablet PO 81 mg DAILY ALONZO Administration Atorvastatin Calcium 10 mg 04/28/20 09:00 04/28/20 10:24 Atorvastatin Calcium 10 Mg Tab PO 10 mg DAILY ALONZO Administration Carvedilol 6.25 mg 04/28/20 09:00 04/28/20 21:00 Carvedilol 6.25 Mg Tab PO 6.25 mg TID ALONZO Administration - Exam General - other findings: Patient awake and alert. No acute distress. Heart - other findings: S1-S2 present and normal. No murmurs gallops or rubs. Respiratory - other findings: Air entry adequate bilaterally. Occasional wheezing. Gastrointestinal - other findings: Soft, nontender bowel sounds present Extremities - other findings: No edema noted. Hosp A/P - Plan This is a 65-year-old female patient with a history of ESRD who is being admitted on account of pulmonary embolism and lack of adequate dialysis access. She had a temporary access placed today for dialysis. Acute pulmonary embolism Presented with shortness of breath Started on apixaban 2.5 mg twice daily We will continue monitoring Plan oxygen as needed. ESRD Possible dialysis tomorrow Temporary access placed in the right groin Nephrology consultedhad dialysis today Shortness of breath Likely secondary to PE Possible COPD has admission Started on Solu-Medrol Continue duo nebs Close monitoring. Elevated troponin This is chronic Left leg pain This is chronic Continue as needed pain medications Abdominal pain No complaints today Continue monitoring. VTE prophylaxistherapeutic on Lovenox CODE STATUSfull code
[2020-04-29] MEDS: Atorvastatin Calcium 10 MG TAB PO SCH (08:59)
[2020-04-29] MEDS: Apixaban 2.5 MG TAB PO SCH (08:59)
[2020-04-29] MEDS: Carvedilol 6.25 MG TAB PO SCH ×3 (08:59→20:54)
[2020-04-29] MEDS: Aspirin 81 mg Enteric Coated Tablet PO SCH (08:59)
[2020-04-29 09:01] LABS: #Lymphocytes 0.6 thou/uL (1.20-3.40); #Monocytes 0.6 thou/uL (0.11-0.59); #Neutrophils 5.4 thou/uL (1.40-6.50); %Basophils 0.1 % (0.0-1.0); %Eosinophils 0.1 % (0.0-10.0); %Lymphocytes 8.7 % (21.0-51.0); %Monocytes 9.7 % (0.0-10.0); %Neutrophils 81.4 % (42.0-75.0); Hemoglobin 9.1 g/dL (12.0-16.0); Mean Corpuscular Hemoglobin 33.6 pg (27.0-31.0); Mean Platelet Volume 8.1 fL (7.4-10.4); Platelet Count 140 thou/uL (130-400); White Blood Cell (WBC) Count 6.7 thou/uL (4.8-10.8)
[2020-04-29 09:21] LABS: Anion Gap 18 mmol/L (10-20); BUN (Urea Nitrogen) 34 mg/dL (9.8-20.1); Calc. Creatinine Clearance 9 mL/min (70-130); Calcium 8.5 mg/dL (7.8-10.44); Carbon Dioxide 23 mmol/L (23-31); Chloride 102 mmol/L (98-107); Estimated GFR-MDRD 9; Glucose 133 mg/dL (80-115); Potassium 3.9 mmol/L (3.5-5.1); Sodium 139 mmol/L (136-145)
--- NOTE | 2020-04-29 10:04 | OP ---
DATE OF PROCEDURE: 04/28/2020 PREOPERATIVE DIAGNOSIS: Chronic end-stage renal disease. POSTOPERATIVE DIAGNOSIS: Chronic end-stage renal disease. PROCEDURE PERFORMED: Right femoral Trialysis dialysis catheter placement. ANESTHESIA: Local. ESTIMATED BLOOD LOSS: Minimal. COMPLICATIONS: None. SPECIMENS: None. FINDINGS: Right femoral vein. DESCRIPTION OF PROCEDURE: The right groin was shaved, prepped, and draped in a sterile fashion. Local anesthetic infiltrated to the right femoral vein. Femoral vein was cannulated using a 22-gauge Finder needle followed by a Seldinger needle. Wire was passed into the femoral vein without tension. Small umm was made at the wire entrance site. The wire was used as a guide to dilate the femoral vein. The Trialysis catheter was threaded to its fullest extent. The wire was removed. Both ports flushed and silvia blood without difficulty. Each was flushed with saline followed by 1000 units of heparin per 1 mL. The line was sutured to the skin using the enclosed silk. Sterile dressings were placed. No complications from the procedure. Job ID: [id number]
--- NOTE | 2020-04-29 11:11 | PRG ---
DATE OF SERVICE: 04/29/2020 SUBJECTIVE: Ms. Sullivan is a 65-year-old black female with ESRD - on maintenance hemodialysis and recently admitted for shortness of breath. She was found to have pulmonary embolism. She has been started on anticoagulation - Eliquis 2.5 mg tablet b.i.d. This morning, she voices no new complaints. She was also noted to be on the anemic side yesterday with hemoglobin 7.5. She received 1 unit of packed RBC yesterday. OBJECTIVE: VITAL SIGNS: Blood pressure is 111/66, heart rate 72, respiratory rate 20, temperature 98.4, O2 saturation 94%. GENERAL: The patient is awake, alert, comfortable, not in overt distress. SKIN: Adequate turgor. HEENT: Slightly pale conjunctivae. Anicteric sclerae. No neck mass. No carotid bruits. No JVD. CHEST: No deformities. LUNGS: Clear breath sounds. No wheezing. No crackles. HEART: Normal sinus rhythm. No murmur. No gallops. No rubs. ABDOMEN: Globular. Soft. Nontender. No masses. EXTREMITIES: No edema. MEDICATIONS: Medications of April 29, 2020, reviewed. LABORATORY DATA: Laboratories of April 29, 2020; white count 6.7, hemoglobin 9.1. Sodium 139, potassium 3.9, chloride 102, carbon dioxide 23, BUN 34, creatinine 5.82, calcium 8.5. ASSESSMENT AND PLAN: 1. Anemia, status post blood transfusion. Holding the Epogen due to recent pulmonary embolism. 2. Status post pulmonary embolism. Clinically asymptomatic on Eliquis. We will hold the a.m. dose prior to surgery tomorrow. 3. Nonfunctioning AV graft - for possible placement of a cuffed hemodialysis catheter tomorrow by Dr. Zhang. 4. Anemia, much improved with blood transfusion. We will recheck CBC and basic metabolic profile in the a.m. Job ID: [id number]
--- NOTE | 2020-04-29 13:19 | PDOC.HOSPP ---
- Subjective Encounter Date: 04/29/20 Encounter Time: 13:18 Subjective: She was seen and examined in bed. She had a good night Denied any chest pain or shortness of breath. - Objective Vital Signs & Weight: Vital Signs (12 hours) Temp Pulse Resp BP Pulse Ox 04/29/20 11:42 98.7 F 71 14 116/66 95 04/29/20 08:00 98.4 F 72 20 111/66 94 L 04/29/20 04:35 98.7 F 55 L 18 117/71 95 Weight Weight 127 lb 13.89 oz I&O: 04/28/20 04/29/20 04/30/20 06:59 06:59 06:59 Intake Total 720 Output Total 2000 Balance -1280 Result Diagrams: 04/29/20 08:49 04/29/20 08:49 Hospitalist ROS - Medication Medications: Active Medications Generic Name Dose Route Start Last Admin Trade Name Freq PRN Reason Stop Dose Admin Albuterol/Ipratropium 3 ml 04/28/20 08:07 04/28/20 21:32 Ipratropium/Albuterol Sulfate 3 Ml Neb NEB 3 ml [id number] PRN Administration SOB &/or Wheezing Apixaban 2.5 mg 04/28/20 09:00 04/29/20 08:59 Apixaban 2.5 Mg Tab PO 2.5 mg BID ALONZO Administration Aspirin 81 mg 04/28/20 09:00 04/29/20 08:59 Aspirin 81 Mg Enteric Coated Tablet PO 81 mg DAILY ALONZO Administration Atorvastatin Calcium 10 mg 04/28/20 09:00 04/29/20 08:59 Atorvastatin Calcium 10 Mg Tab PO 10 mg DAILY ALONZO Administration Carvedilol 6.25 mg 04/28/20 09:00 04/29/20 08:59 Carvedilol 6.25 Mg Tab PO 6.25 mg TID ALONZO Administration - Exam General - other findings: In bed, no acute distress. Heart - other findings: S1-S2 present and normal. No murmurs gallops or rubs. Respiratory - other findings: And adequate bilaterally. No wheezes or rales. Gastrointestinal - other findings: Soft, nontender. Bowel sounds present and normal Extremities - other findings: No edema. Hosp A/P - Plan This is a 65-year-old female patient with a history of ESRD who is being admitted on account of pulmonary embolism and lack of adequate dialysis access. She had a temporary access placed yesterday hemodialysis. She will continue admission for Possible placement of cuffed hemodialysis catheter tomorrow. Acute pulmonary embolism Presented with shortness of breath Started on apixaban 2.5 mg twice dailywe will continue We will continue monitoring ESRD Dialysis yesterday Nephrology following COPD Scheduled/as needed duo nebs. Continue steroids Elevated troponin This is chronic Left leg pain Improved Abdominal pain No pain today Continue monitoring. VTE prophylaxistherapeutic on apixaban CODE STATUSfull code
[2020-04-30] MEDS ORDERED: Nitroglycerin 0.4 MG TAB (25 Tab Bottle) SL PRN (01:43)
[2020-04-30] MEDS ORDERED: Aspirin 325 MG TAB PO SCH (01:45)
[2020-04-30 02:23] LABS: #Lymphocytes 0.8 thou/uL (1.20-3.40); #Monocytes 0.6 thou/uL (0.11-0.59); #Neutrophils 4.7 thou/uL (1.40-6.50); %Basophils 0.1 % (0.0-1.0); %Eosinophils 0.2 % (0.0-10.0); %Lymphocytes 13.2 % (21.0-51.0); %Monocytes 9.2 % (0.0-10.0); %Neutrophils 77.3 % (42.0-75.0); Hemoglobin 8.8 g/dL (12.0-16.0); Mean Corpuscular HGB CONC 33.5 g/dL (32.0-36.0); Mean Corpuscular Hemoglobin 34.3 pg (27.0-31.0); Mean Platelet Volume 7.9 fL (7.4-10.4); Platelet Count 137 thou/uL (130-400); Red Blood Cell (RBC) Count 2.56 mill/uL (4.20-5.40)
[2020-04-30 02:45] LABS: Anion Gap 20 mmol/L (10-20); BUN (Urea Nitrogen) 43 mg/dL (9.8-20.1); Calc. Creatinine Clearance 8 mL/min (70-130); Carbon Dioxide 20 mmol/L (23-31); Chloride 101 mmol/L (98-107); Estimated GFR-MDRD 8; Potassium 4.2 mmol/L (3.5-5.1); Sodium 137 mmol/L (136-145)
[2020-04-30 02:46] LABS: Calcium 8.6 mg/dL (7.8-10.44); Glucose 104 mg/dL (80-115)
--- NOTE | 2020-04-30 03:03 | PDOC.EVN ---
Event Note - Event Note Event Note: Patient with new onset chest pain overnight. Pt describes pain as a squeezing substernal pressure. VSS. EKG showed non-specific t-wave changes with t-wave inversions in lead II, but no ST elevation or depression. Pt given ASA 325 mg, nitro SL with improvement in her chest pain. Mild expiratory wheezing one xam. Pt received neb treatment also with improvement in her symptoms. CXR, troponins, electrolytes, and BNP ordered.
[2020-04-30 06:54] LABS: Hemoglobin 8.5 g/dL (12.0-16.0); Mean Corpuscular HGB CONC 32.7 g/dL (32.0-36.0); Mean Corpuscular Hemoglobin 33.6 pg (27.0-31.0); Mean Platelet Volume 8.2 fL (7.4-10.4); Platelet Count 135 thou/uL (130-400); Red Blood Cell (RBC) Count 2.53 mill/uL (4.20-5.40); White Blood Cell (WBC) Count 5.6 thou/uL (4.8-10.8)
[2020-04-30 07:04] LABS: Anion Gap 20 mmol/L (10-20); BUN (Urea Nitrogen) 44 mg/dL (9.8-20.1); Calc. Creatinine Clearance 8 mL/min (70-130); Calcium 8.4 mg/dL (7.8-10.44); Carbon Dioxide 18 mmol/L (23-31); Chloride 102 mmol/L (98-107); Estimated GFR-MDRD 7; Glucose 88 mg/dL (80-115); Potassium 4.2 mmol/L (3.5-5.1); Sodium 136 mmol/L (136-145)
[2020-04-30 07:24] LABS: #Lymphocytes 0.8 thou/uL (1.20-3.40); #Monocytes 0.6 thou/uL (0.11-0.59); #Neutrophils 4.2 thou/uL (1.40-6.50); %Basophils 0.1 % (0.0-1.0); %Eosinophils 0.1 % (0.0-10.0); %Lymphocytes 14.5 % (21.0-51.0); %Monocytes 9.8 % (0.0-10.0); %Neutrophils 75.5 % (42.0-75.0); MDiff Complete? YES; Polychromasia SLIGHT = 2-3 cells (100X) (0-2/hpf)
[2020-04-30 07:27] LABS: CKMB 0.9 ng/mL (0-6.6)
--- NOTE | 2020-04-30 09:18 | RAD ---
CHEST 1 VIEW: INDICATION: History of chest pain. COMPARISON: Prior exam dated 04/27/2020. FINDINGS: The reticular opacity within the right lung base likely related to an area of scarring or volume loss in the right lower lobe is stable. Tiny bilateral pleural effusions remain. Cardiomegaly persists. Mild pulmonary vascular congestion persists. AICD is unchanged. IMPRESSION: 1. Stable cardiomegaly with pulmonary vascular congestion and small bilateral pleural effusions. 2. Stable reticular opacity of the right lower lobe suspicious for scarring versus subsegmental volu me loss. POS: BH
--- NOTE | 2020-04-30 09:19 | PRG ---
DATE OF SERVICE: 04/30/2020 SUBJECTIVE: Ms. Sullivan is a 65-year-old black female with ESRD, was initially admitted for shortness of breath. She was found to have PE. She has been started on Eliquis. She was also found to have a nonfunctional AV graft. Surgical consult has been done. Dr. Ludwig placed a temporary right femoral dialysis catheter with the patient. The plan is to have Dr. Zhang place a cuffed hemodialysis catheter. She is undergoing hemodialysis. She is voicing no new complaints. No chest pain or shortness of breath. OBJECTIVE: VITAL SIGNS: Blood pressure 109/65, heart rate 73, respiratory rate 18, temperature 98.2, O2 saturation is 94%. GENERAL: The patient is awake, alert, comfortable, not in distress. SKIN: Adequate turgor. HEENT: Pinkish conjunctivae. Anicteric sclerae. NECK: No neck mass. No carotid bruits. No JVD. CHEST: No deformities. LUNGS: Clear breath sounds. HEART: Normal sinus rhythm. No murmur. No gallops. No rubs. ABDOMEN: Globular, soft, nontender. No masses. EXTREMITIES: No edema, no deformities. MEDICATIONS: April 30, 2020, reviewed. LABORATORY DATA: April 30, 2020, white count 5.6, hemoglobin 8.5, and platelet count 135,000. Sodium 136, potassium 4.2, chloride 102, carbon dioxide 18, BUN 44, creatinine 6.87, glucose 88, calcium 8.4. ASSESSMENT AND PLAN: 1. Pulmonary embolism-currently on Eliquis 2.5 mg p.o. b.i.d. The patient is stable. Denies any chest pain or shortness of breath. 2. Endstage renal disease-continue Thursday, Thursday, and Thursday hemodialysis. Fluid removal as tolerated. 3. No changes in the current dialysis regimen. Awaiting surgery for placement of a cuffed hemodialysis catheter. 4. Anemia-status post blood transfusion, stable. We will plan to recheck CBC, base met in a.m. Job ID: [id number]
--- NOTE | 2020-04-30 11:04 | CON ---
DATE OF CONSULTATION: HISTORY OF PRESENT ILLNESS: Dai Sullivan is a 65-year-old female, who has a dysfunctional left forearm graft. This forearm graft was placed many years ago. She has had many interventions. It appears by exam that she has stenting of her basilic vein. We will obtain x-rays of this. The patient's graft is thrombosed. [facility], had an intervention resulting in an embolism demonstrated by CT angio right middle to lower lobe. She has been placed on anticoagulation, Eliquis, received this morning and I have discontinued. The patient has failing left forearm graft. The patient states that Dr. Ludwig placed 6 years ago. I do not find any records in our hospital of this. We would recommend ultrasound vein mapping to establish a new vascular access and a hemodialysis catheter in 48 hours. We will hold her Eliquis. I have talked to hospitalist about providing other anticoagulation at this time. She understands risks and benefits and consents. ALLERGIES: IODINE, PENICILLINS. SOCIAL HISTORY: Tobacco 1/2 pack per day. Alcohol, rarely. MEDICATIONS: 1. Tylenol. 2. Midodrine. 3. Carvedilol. 4. Atorvastatin. 5. Aspirin. PAST SURGICAL HISTORY: Left subclavian vein pacemaker, carotid endarterectomy, cholecystectomy, left defibrillator, hemorrhoidectomy, postoperative bleeding, shock, required transfusion and re-exploration in 2018. The patient has a stent in her right coronary artery at another facility, follows Dr. Pfeiffer on routine basis, history of AVM stomach cauterizations. PAST MEDICAL HISTORY: PAD; end-stage renal disease, on maintenance dialysis; thrombocytopenia; leukopenia; tobacco abuse; echocardiogram on 07/24/2018, EF 20% to 25%, markedly enlarged right ventricle. The patient follows Dr. Pfeiffer, sees him every 3 months. PHYSICAL EXAMINATION: VITAL SIGNS: Height 5 foot 1 inches, 127 pounds, 24 BMI, 98.2, 73, 109/65. CARDIAC: Regular rate and rhythm. LUNGS: Clear to auscultation. Defibrillator in left chest. ABDOMEN: Soft. Left forearm dialysis graft thrombosed. EXTREMITIES: Unremarkable. No thrill or bruit in her left forearm graft. Palpable stents in her basilic vein outflow more than likely. LABORATORY DATA: Platelet count 135,000, hemoglobin 8.5, white count 5.6. Basic metabolic profile unremarkable except for changes consistent with end-stage renal disease. ASSESSMENT AND PLAN: 1. Thrombosed left forearm access graft. Hold Eliquis. Provide other anticoagulation besides Eliquis. Thursday, plan placement of hemodialysis catheter and new access. Obtain ultrasound vein mapping both arms to develop plan for new access. 2. History of coronary artery disease. 3. History of ischemic cardiomyopathy, followed by Dr. Pfeiffer. Repeat echocardiogram. 4. History of AVM stomach cauterization in the past. 5. Tobacco abuse. 6. End-stage renal disease. 7. Thrombosed left arm graft. Job ID: [id number]
[2020-04-30] MEDS ORDERED: Heparin 10,000 UNITS/ 10 ML VIAL ONE (11:52)
[2020-04-30] MEDS: Aspirin 81 mg Enteric Coated Tablet PO SCH (12:49)
[2020-04-30] MEDS: Atorvastatin Calcium 10 MG TAB PO SCH (12:49)
[2020-04-30] MEDS: Carvedilol 6.25 MG TAB PO SCH ×3 (12:49→20:33)
--- NOTE | 2020-04-30 13:21 | PQF ---
CLINICAL DOCUMENTATION CLARIFICATION FORM: Dear Dr. Daugherty Date: 04/27/2020 Please exercise your independent, professional judgment in responding to the clarification form. Clinical indicators are provided on the bottom of this form for your review. Please check appropriate box(es): [ x ] Acute pulmonary embolism is a complication of recent left forearm fistula procedure [ ] Acute pulmonary embolism is not a complication of recent left forearm fistula procedure [ ] Other diagnosis [ ] Unable to determine In addition, please specify: Present on Admission (POA): [ x ] Yes [ ] No [ ] Unable to determine For continuity of documentation, please document condition throughout progress notes and discharge summary. Thank You. CLINICAL INDICATORS - SIGNS / SYMPTOMS / LABS / RESULTS AND LOCATION IN EMR *H&P 04/27 (Affram): * She was at [facility] getting his fistula cleaned out and it was noted that she became short of breath abdominal pain and left lower leg pain * Acute pulmonary embolism *Consultation 04/27 (Reyna): Acute pulmonary embolism- this could have been related to the previous procedure where the patient was undergoing AV fistulogram with attempt to open the vessels. *Consultation 04/30 ([place]): * The patients graft is thrombosed. * She went to [facility], had an intervention resulting in an embolism demonstrated by CT angio right middle to lower lobe. RISK FACTORS / RESULTS AND LOCATION IN EMR *ED 04/27: * Medical history: CHF HTN * Patient smokes packs per day *H&P 04/27 (Afram): Peripheral Vascular disease *Consultation 04/27 (Reyna): Procedure with an AV fistulogram *Consultation 04/30 (Vicente): Thrombosed left forearm access graft. TREATMENTS / RESULTS AND LOCATION IN EMR *ED 04/27: Eliquis PO, Morphine IV, Oxygen *H&P 04/27 (Affram): Started on apixabin 2.5 mg twice daily plan oxygen as needed. *Nephrology Consultation 04/27 (Reyna) *Surgery Consultation 04/30 (Vicente) *Reports 04/27 (EMR): Chest/Thorax CT, Abdomen/Pelvis CT, Chest X-Ray *Consultation 04/30 ([place]): Provide other anticoagulation besides Eliquis. Thank you, Estela CDS/Manager Book Signature: Estela Jarrett RN, CDS Phone #: [phone] [email or web address] This is a permanent part of the Medical Record [facility]
--- NOTE | 2020-04-30 14:06 | RAD ---
Exam: XR Forearm Lt 2 View STANDARD HISTORY: Evaluate for vascular stents and hemodialysis graft. COMPARISON: None FINDINGS: Multiple vascular stents are seen overlying the anterior and medial left forearm with the vascular st ents extending from the level of the distal right humeral metadiaphysis to the mid diaphysis of the forearm. There is also partial visualization of a vascular stent at the level of the mid diaphysis of the humerus incompletely imaged. Calcifications are seen in the region of the left upper extremity arteriovenous dialysis fistula. Vascular calcifications are seen. Degenerative changes are seen at the first metacarpal phalangeal joint of the thumb.There is question able subluxation at this joint, but this is difficult to further evaluate on provided images. No fracture or other osseous abnormality is appreciated. IMPRESSION: 1. Multiple vascular stents including multiple overlapping vascular stents are seen in the distal lef t arm and proximal forearm as described above within what appears to be a partially calcified arteriovenous dialysis fistula. 2. Osteoarthritis metatarsophalangeal joint of the thumb with suggestion of subluxation.
--- NOTE | 2020-04-30 14:06 | RAD ---
Exam:Left humerus 2 views HISTORY: Evaluate stents for hemodialysis graft. COMPARISON: None FINDINGS: There are vascular stent along the mid to distal left upper extremity. Additional stents pr oject over the left elbow and proximal forearm. IMPRESSION: Multiple vascular stents.
[2020-04-30 14:21] LABS: Hemoglobin 10.1 g/dL (12.0-16.0); Platelet Count 150 thou/uL (130-400)
[2020-04-30] MEDS ORDERED: Heparin 25,000 units/D5W 500 ML IVPB SCH (15:15)
--- NOTE | 2020-04-30 15:19 | PDOC.HOSPP ---
- Subjective Encounter Date: 04/30/20 Encounter Time: 15:17 Subjective: Patient was seen and examined in bed. Patient is here earlier this morning she just returned from dialysis. Overnight she had an episode of chest pain which has since resolved. She denies any shortness of breath however occasional cough. Her troponin was however elevated from baseline at 0.062 to 1.2. Also spiked a temperature of the dialysis today. - Objective Vital Signs & Weight: Vital Signs (12 hours) Temp Pulse Resp BP Pulse Ox 04/30/20 08:00 94 L 04/30/20 07:50 98.2 F 73 18 109/65 94 L 04/30/20 04:59 97.8 F 72 18 104/68 96 Weight Weight 127 lb 13.89 oz I&O: 04/29/20 04/30/20 05/01/20 06:59 06:59 06:59 Intake Total 720 720 Output Total 1999 Balance -1280 720 Result Diagrams: 04/30/20 14:09 04/30/20 06:36 Hospitalist ROS - Medication Medications: Active Medications Generic Name Dose Route Start Last Admin Trade Name Freq PRN Reason Stop Dose Admin Albuterol/Ipratropium 3 ml 04/28/20 08:07 04/30/20 01:59 Ipratropium/Albuterol Sulfate 3 Ml Neb NEB 3 ml [id number] PRN Administration SOB &/or Wheezing Aspirin 81 mg 04/28/20 09:00 04/30/20 12:49 Aspirin 81 Mg Enteric Coated Tablet PO 81 mg DAILY ALONZO Administration Atorvastatin Calcium 10 mg 04/28/20 09:00 04/30/20 12:49 Atorvastatin Calcium 10 Mg Tab PO 10 mg DAILY ALONZO Administration Carvedilol 6.25 mg 04/28/20 09:00 04/30/20 12:49 Carvedilol 6.25 Mg Tab PO 6.25 mg TID ALONZO Administration Nitroglycerin 0.4 mg 04/30/20 01:43 04/30/20 02:05 Nitroglycerin 0.4 Mg Tab (25 Tab Bottle) SL 0.4 mg Q5MIN PRN Administration Chest Pain - Exam General - other findings: In bed no acute distress Heart: RRR, no murmur, no gallops Heart - other findings: . Gastrointestinal: soft, non-tender, non-distended, normal bowel sounds Extremities: no cyanosis, no clubbing Extremities - other findings: Left arm old access site shows no erythema Neurological: cranial nerve grossly intact, no weakness Psychiatric: A&O x 3 Hosp A/P - Plan This is a 65-year-old female patient with a history of ESRD who is being admitted on account of pulmonary embolism and lack of adequate dialysis access. Had hemodialysis this morning however fever overnight. Planning to do surgery for access in 2 days. Will discontinue Eliquis and bridge with heparin Acute pulmonary embolism Presented with shortness of breath Started on apixaban 2.5 mg twice daily.Discontinue start heparin in the evening We will continue monitoring Peripheral vascular access surgery Hold Eliquis and bridge with heparin Echocardiogram given history of cardiomyopathy Urology following. Elevated troponin Troponin was elevated however patient is already on Eliquis No chest pain at the moment We will do 1 more troponins next No malignant rhythms on telemetry. Fever Had a fever of 100.7 after dialysis today We will check blood cultures, urinalysis Had a chest x-ray this morning which shows no indication of pneumonia We will hold antibiotics for now Monitor temperature ESRD Dialysis yesterday Nephrology following COPD Scheduled/as needed duo nebs. Continue steroids Elevated troponin This is chronic Left leg pain Improved Abdominal pain No pain today Continue monitoring. VTE prophylaxistherapeutic on apixaban CODE STATUSfull code
[2020-04-30] MEDS: Acetaminophen 325 MG TAB PO PRN (17:15)
[2020-04-30 18:04] LABS: Troponin I 0.163 ng/mL (< 0.028)
--- NOTE | 2020-04-30 19:29 | ULT ---
VEIN MAPPING OF UPPER EXTREMITIES FOR DIALYSIS ACCESS: HISTORY: Endstage renal disease. FINDINGS: RIGHT UPPER EXTREMITY: The right cephalic vein is thrombosed. BRACHIAL ARTERY: 2.8 mm RADIAL ARTERY: 1.7 mm ULNAR ARTERY: 2.7 mm BASILIC VEIN Proximal Arm: 2.9 mm Mid Arm: 1.3 mm Distal Arm: 1.5 mm Antecubital Fossa: 0.9 mm Proximal Forearm: 1.1 mm Mid Forearm: 0.8 mm Distal Forearm: 0.7 mm LEFT UPPER EXTREMITY: BRACHIAL ARTERY: 4.9 mm RADIAL ARTERY: 5.0 mm ULNAR ARTERY: 1.8 mm CEPHALIC VEIN Proximal Arm: 2.3 mm Mid Arm: 1.8 mm Distal Arm: 1.4 mm Antecubital Fossa: 1.4 mm Proximal Forearm: 1.2 mm Mid Forearm: 1.7 mm Distal Forearm: 0.9 mm A graft is seen in the proximal forearm. BASILIC VEIN Proximal Arm: 1.5 mm Mid Arm: 1.5 mm Distal Arm: 1.8 mm Antecubital Fossa: 1.7 mm Proximal Forearm: Occluded Mid Forearm: Occluded Distal Forearm: Occluded IMPRESSION: As above. POS: OFF
[2020-04-30] MEDS: Heparin 25,000 units/D5W 500 ML IVPB SCH (20:31)
[2020-04-30] MEDS: Heparin 10,000 UNITS/ 10 ML VIAL SLOW IVP SCH (20:37)
[2020-04-30] MEDS ORDERED: Apixaban 2.5 MG TAB PO SCH (21:00)
[2020-04-30 21:23] LABS: Clarity Cloudy (Clear)
[2020-04-30 21:24] LABS: Leukocyte Moderate (Negative); Nitrite Positive (Negative)
[2020-04-30 21:25] LABS: Glucose, Urine (Dipstick) Negative (Negative); Ketone, Urine Negative (Negative); Protein, Urine (Dipstick) > or equal to 300 mg/dL (Neg-Trace)
[2020-04-30 21:27] LABS: Urobilinogen 0.2 mg/dL (Less than 2)
[2020-04-30 21:28] LABS: Bilirubin Small (Negative); Blood, Urine Large (Negative)
[2020-04-30 21:32] LABS: Bacteria/HPF 1+ HPF (None Seen); Squamous Epithelial 0-3 HPF (0-3); WBC/HPF Greater than 50 HPF (0-3)
[2020-04-30 21:33] LABS: Urine Culture Reflex Yes Yes
[2020-05-01 04:20] LABS: #Lymphocytes 0.5 thou/uL (1.20-3.40); #Monocytes 0.8 thou/uL (0.11-0.59); #Neutrophils 4.5 thou/uL (1.40-6.50); %Basophils 0.1 % (0.0-1.0); %Eosinophils 0.6 % (0.0-10.0); %Neutrophils 77.2 % (42.0-75.0); Hemoglobin 8.2 g/dL (12.0-16.0); Mean Corpuscular HGB CONC 33.4 g/dL (32.0-36.0); Mean Corpuscular Hemoglobin 34.2 pg (27.0-31.0); Mean Platelet Volume 7.6 fL (7.4-10.4); Platelet Count 138 thou/uL (130-400); Red Blood Cell (RBC) Count 2.41 mill/uL (4.20-5.40); White Blood Cell (WBC) Count 5.9 thou/uL (4.8-10.8)
[2020-05-01 04:39] LABS: Anion Gap 13 mmol/L (10-20); BUN (Urea Nitrogen) 16 mg/dL (9.8-20.1); Calc. Creatinine Clearance 14 mL/min (70-130); Calcium 8.2 mg/dL (7.8-10.44); Carbon Dioxide 29 mmol/L (23-31); Chloride 99 mmol/L (98-107); Estimated GFR-MDRD 14; Glucose 111 mg/dL (80-115); Potassium 3.3 mmol/L (3.5-5.1); Sodium 138 mmol/L (136-145)
[2020-05-01 05:26] LABS: PTT 206.9 sec (22.9-36.1)
[2020-05-01] MEDS: Acetaminophen 325 MG TAB PO PRN (08:09)
[2020-05-01] MEDS: Carvedilol 6.25 MG TAB PO SCH ×3 (08:10→20:04)
[2020-05-01] MEDS: Atorvastatin Calcium 10 MG TAB PO SCH (08:10)
[2020-05-01] MEDS: Aspirin 81 mg Enteric Coated Tablet PO SCH (08:10)
[2020-05-01] MEDS: Heparin 10,000 UNITS/ 10 ML VIAL SLOW IVP SCH ×2 (08:57→17:49)
--- NOTE | 2020-05-01 09:32 | PRG ---
DATE OF SERVICE: 05/01/2020 SUBJECTIVE: Ms. Sullivan is a 65-year-old black female with ESRD, on maintenance hemodialysis, who was initially admitted for pulmonary embolism. She was placed on Eliquis initially. Currently, on IV heparin drip due to a planned surgery/AV fistula/AV graft placement as well as placement of a cuffed hemodialysis catheter. No new complaints today. Denies any chest pain or shortness of breath. OBJECTIVE: VITAL SIGNS: Blood pressure is 109/57, temperature 99.8, heart rate 73, respiratory rate 18, and O2 saturation 95% on room air. GENERAL: The patient is awake, alert, and comfortable, not in overt distress. SKIN: Adequate turgor. HEENT: She has a slightly pale conjunctivae. Anicteric sclerae. No neck mass. No carotid bruits. No JVD. CHEST: No deformities. LUNGS: Clear breath sounds. HEART: Normal sinus rhythm. No murmurs, gallops, or rubs. ABDOMEN: Globular, soft, and nontender. No masses. EXTREMITIES: No edema. No deformities. MEDICATIONS: May 01, 2020, reviewed. LABORATORY DATA: May 01, 2020; white count 5.9, hemoglobin 8.2. Sodium 138, potassium 3.3, chloride 99, carbon dioxide 29, BUN 16, creatinine 3.91, and calcium 8.2. Troponin I 0.163. ASSESSMENT AND PLAN: 1. End-stage renal disease, stable. We will continue current maintenance hemodialysis Thursday, Thursday, and Thursday. Tolerating said treatment. Fluid removal only as tolerated. For a planned AV graft/fistula placement as well as for a cuffed hemodialysis catheter, Surgery is following. 2. Fever. We will check a blood culture x2 with this patient. 3. Anemia, on p.r.n. blood transfusion. 4. Pulmonary embolism, currently on IV heparin. 5. Recheck CBC, basic metabolic profile, and blood culture x2. Job ID: [id number]
[2020-05-01] MEDS ORDERED: Electrolyte Replacement Protoc 1 EACH EACH FS SCH (09:45)
--- NOTE | 2020-05-01 14:19 | PDOC.HOSPP ---
- Subjective Encounter Date: 05/01/20 Encounter Time: 14:17 Subjective: Patient was seen and examined in bed. She had a comfortable night. Denied any chest pain or shortness of breath. - Objective Vital Signs & Weight: Vital Signs (12 hours) Temp Pulse Resp BP BP Pulse Ox 05/01/20 08:10 109/57 L 05/01/20 08:00 98 05/01/20 04:00 99.8 F H 73 18 109/59 L 95 Weight Weight 132 lb 11.492 oz I&O: 04/30/20 05/01/20 05/02/20 06:59 06:59 06:59 Intake Total 720 1465 Output Total 2000 Balance 720 -535 Result Diagrams: 05/01/20 04:08 05/01/20 04:08 Hospitalist ROS - Medication Medications: Active Medications Generic Name Dose Route Start Last Admin Trade Name Freq PRN Reason Stop Dose Admin Acetaminophen 650 mg 04/30/20 14:47 05/01/20 08:09 Acetaminophen 325 Mg Tab PO 650 mg Q6H PRN Administration Pain Albuterol/Ipratropium 3 ml 04/28/20 08:07 04/30/20 01:59 Ipratropium/Albuterol Sulfate 3 Ml Neb NEB 3 ml [id number] PRN Administration SOB &/or Wheezing Aspirin 81 mg 04/28/20 09:00 05/01/20 08:10 Aspirin 81 Mg Enteric Coated Tablet PO 81 mg DAILY ALONZO Administration Atorvastatin Calcium 10 mg 04/28/20 09:00 05/01/20 08:10 Atorvastatin Calcium 10 Mg Tab PO 10 mg DAILY ALONZO Administration Carvedilol 6.25 mg 04/28/20 09:00 05/01/20 08:10 Carvedilol 6.25 Mg Tab PO 6.25 mg TID ALONZO Administration Heparin Sodium (Porcine) 0 units 04/30/20 14:00 05/01/20 08:57 Heparin 10,000 Units/ 10 Ml Vial SLOW IVP 2.3 ml ASDIR ALONZO Administration Protocol Heparin Sodium/Dextrose 500 mls @ 0 mls/hr 04/30/20 20:15 04/30/20 20:31 Heparin 25,000 Units/D5w IVPB 500 mls INF ALONZO Administration Protocol Per Protocol Nitroglycerin 0.4 mg 04/30/20 01:43 04/30/20 02:05 Nitroglycerin 0.4 Mg Tab (25 Tab Bottle) SL 0.4 mg Q5MIN PRN Administration Chest Pain - Exam General Appearance: awake alert Eye: PERRL, anicteric sclera Neck: supple, symmetric, no JVD Heart: RRR, no murmur, no gallops Respiratory: no wheezes, no rales, no ronchi, normal chest expansion Gastrointestinal: soft, non-tender, non-distended, normal bowel sounds Extremities: no edema Hosp A/P - Plan This is a 65-year-old female patient with a history of ESRD who is being admitted on account of pulmonary embolism and lack of adequate dialysis access. Had hemodialysis this morning however fever overnight. Planning to do surgery for access in 2 days. Will discontinue Eliquis and bridge with heparin Acute pulmonary embolism Presented with shortness of breath Started on apixaban 2.5 mg twice daily.Discontinue start heparin in the evening Discontinue warfarin this night prior to surgery tomorrow. We will continue monitoring vascular access surgery Hold Eliquis and bridge with heparin Echocardiogram given history of cardiomyopathy Urology following. UTI Diffuse vertigo Urine growing presumptive E. coli She is already on levofloxacinwe will continue Continue monitoring ESRD Dialysis yesterday Nephrology following For dialysis access surgery tomorrow COPD Scheduled/as needed duo nebs. Continue steroids Elevated troponin This is chronic Left leg pain Improved Abdominal pain No pain today Continue monitoring. VTE prophylaxistherapeutic on apixaban CODE STATUSfull code
[2020-05-01 14:48] LABS: PTT 197.8 sec (22.9-36.1)
--- NOTE | 2020-05-01 16:06 | EKG ---
Test Reason : CP Blood Pressure : / mmHG Vent. Rate : 070 BPM Atrial Rate : 070 BPM P-R Int : 180 ms QRS Dur : 094 ms QT Int : 404 ms P-R-T Axes : 056 044 226 degrees QTc Int : 436 ms Electronic atrial pacemaker T wave abnormality, consider inferolateral ischemia Abnormal ECG Confirmed by YAIMA CORDOVA ([id number]) on 05/01/2020 4:06:11 PM Referred By: AFFRAM Confirmed By:YAIMA CORDOVA
[2020-05-01] MEDS ORDERED: traMADol HCl 50 MG TAB PO PRN (17:31)
--- NOTE | 2020-05-01 17:46 | PRG ---
DATE OF SERVICE: 05/01/2020 Dai Sullivan is doing well today. Her left forearm graft is thrombosed. She has multiple stents in her basilic vein. She has coils in what appears to be her cephalic vein, left arm. She has a defibrillator on the left. Ultrasound vein mapping obtained recently reveals suboptimal veins on the right and thrombosed cephalic vein on the right. More than likely, she will require prosthetic graft on the right, and we will plan that tomorrow. She understands risks and benefits of surgery and consents. Job ID: [id number]
[2020-05-02 04:58] LABS: Anion Gap 18 mmol/L (10-20); BUN (Urea Nitrogen) 26 mg/dL (9.8-20.1); Calc. Creatinine Clearance 10 mL/min (70-130); Calcium 8.5 mg/dL (7.8-10.44); Carbon Dioxide 25 mmol/L (23-31); Chloride 97 mmol/L (98-107); Estimated GFR-MDRD 9; Glucose 96 mg/dL (80-115); Potassium 3.6 mmol/L (3.5-5.1); Sodium 136 mmol/L (136-145)
[2020-05-02 05:13] LABS: Anisocytosis SLIGHT = 6-15 cells (100X) (0-5/hpf); Band 8 % (5-11); Eosinophils 1 % (0-10); Hemoglobin 7.9 g/dL (12.0-16.0); Lymphocytes 14 % (21-51); MDiff Complete? YES; Macrocytosis SLIGHT = 6-15 cells (100X) (0-5/hpf); Mean Corpuscular HGB CONC 32.1 g/dL (32.0-36.0); Mean Corpuscular Hemoglobin 33.2 pg (27.0-31.0); Mean Platelet Volume 8.1 fL (7.4-10.4); Monocytes 10 % (0-10); Neutrophil 67 % (42-75); Platelet Count 135 thou/uL (130-400); RBC Distribution Width 17.8 % (11.5-14.5); Red Blood Cell (RBC) Count 2.39 mill/uL (4.20-5.40); White Blood Cell (WBC) Count 5.9 thou/uL (4.8-10.8)
--- NOTE | 2020-05-02 08:19 | PRG ---
DATE OF SERVICE: 05/02/2020 SUBJECTIVE: Ms. Sullivan is a 65-year-old black female with ESRD - on maintenance hemodialysis. She was admitted for an acute pulmonary embolism. She is currently on IV heparin drip. She has also nonfunctioning left AV graft. Surgery has been consulted and the plan is to place a right AV graft as well as a cuffed hemodialysis catheter. No new complaints today. No chest pain or shortness of breath. Last cardiac echo, yesterday showed an EF of about 25%. Please note, the patient has an AICD. No new complaints today. No chest pain or shortness of breath. OBJECTIVE: VITAL SIGNS: Blood pressure 108/51, heart rate 75, respiratory rate 18, temperature 100, O2 saturation is 95%. Urine culture April 30, 2020, showed Escherichia coli. Blood culture no growth to date. GENERAL: She is noted to be awake, alert, comfortable, not in distress. SKIN: Adequate turgor. HEENT: Pinkish conjunctivae. Anicteric sclerae. NECK: No neck mass. No carotid bruits. No JVD. CHEST: No deformities. LUNGS: Clear breath sounds. No wheezing. No crackles. HEART: Normal sinus rhythm. No murmurs, gallops, or rubs. ABDOMEN: Globular, soft, nontender. No masses. EXTREMITIES: No edema. No deformities. MEDICATIONS: Medications of May 02, 2020, reviewed. LABORATORY DATA: Urine C and S showed an Escherichia coli. This is reported to be resistant to Cipro and Levaquin. Consider starting patient on ceftriaxone 1 g IV daily. ASSESSMENT: 1. End stage renal disease, stable. We will continue current Thursday, Thursday, and Thursday hemodialysis regimen. She is tolerating said treatment. Fluid removal only as tolerated. 2. Acute pulmonary embolism-currently on IV heparin. We are currently holding off any Epogen until she is more stable. 3. Nonfunctioning AV graft. Plan is to have a new right AV graft placed by Dr. Zhang. Considering also to place a cuffed hemodialysis catheter. 4. Recheck CBC, basic metabolic in a.m. Job ID: [id number]
[2020-05-02] MEDS ORDERED: Heparin 5,000 UNITS/ML VIAL ONE (08:28)
[2020-05-02] MEDS ORDERED: Lidocaine 2% PF 5 ML VIAL ONE ×2 (08:28→08:29)
[2020-05-02] MEDS ORDERED: Bupivacaine HCl 0.5%/Epinephrine 1:200,000/PF 30 ml Vial ONE ×2 (08:28→11:08)
[2020-05-02] MEDS ORDERED: Heparin 10,000 UNITS/ 10 ML VIAL ONE ×2 (08:28→11:34)
[2020-05-02] MEDS ORDERED: Protamine Sulfate 50 MG/5 ML VIAL ONE (08:28)
[2020-05-02] MEDS ORDERED: Sodium Chloride 0.9% 20 ML ONE (08:28)
[2020-05-02] MEDS ORDERED: Fentanyl 100 MCG/2 ML VIAL ONE ×2 (08:31→09:09)
[2020-05-02] MEDS ORDERED: Sodium Chloride 0.9% 10 ML ONE (08:38)
[2020-05-02] MEDS ORDERED: Sulfameth/Trimethoprim SS 400-80MG TAB PO SCH (09:00)
[2020-05-02] MEDS ORDERED: Ondansetron HCl/PF 4 MG/2 ML Vial IVP PRN (09:26)
[2020-05-02] MEDS ORDERED: Promethazine HCl 25 MG/ML VIAL IM PRN (09:26)
[2020-05-02] MEDS ORDERED: Promethazine HCl 25 MG/ML VIAL SLOW IVP PRN (09:26)
[2020-05-02] MEDS ORDERED: Levofloxacin 500 mg/D5W 100 ml Premix Bag ONE (09:27)
[2020-05-02] MEDS ORDERED: Midazolam HCl 2 mg/2 ml Vial ONE (09:46)
[2020-05-02] MEDS ORDERED: PHENYLEPHRINE-NS 100 MCG/ML 10 ML SYRINGE ONE (11:08)
[2020-05-02] MEDS ORDERED: EPHEDRINE 25 MG/5 ML SYRINGE ONE (11:08)
--- NOTE | 2020-05-02 11:37 | RAD ---
XR Chest 1 View Portable History: Central line placement Comparison: Radiograph 2 days prior Findings: Right IJ central dialysis catheter tip projects over the right atrium. The left IJ central venous catheter courses from the internal jugular to the left brachiocephalic into the right brachiocephalic vein with tip near the right subclavian vein. No apical pneumothorax. Pleural calcifications both lung apices. Small bilateral pleural effusions. H eart size is enlarged. Impression: 1. Right IJ dialysis catheter tip projects over the right atrium. 2. Left IJ central venous catheter courses from the internal jugular to the left then right brachioce phalic veins with tip projecting of the right subclavian vein. 3. No postprocedural pneumothorax.
--- NOTE | 2020-05-02 11:46 | PDOC.HOSPP ---
- Subjective Encounter Date: 05/02/20 Encounter Time: 18:47 Subjective: Patient was seen and examined in bed. She does come off surgery for her dialysis access. She felt cold and needed warm blankets otherwise denies any pain or shortness of breath. - Objective Vital Signs & Weight: Vital Signs (12 hours) Temp Pulse Resp BP Pulse Ox 05/02/20 08:00 100.2 F H 95 17 94/53 L 95 05/02/20 04:00 100 F H 75 18 108/51 L 95 Weight Weight 136 lb 0.403 oz I&O: 05/01/20 05/02/20 05/03/20 06:59 06:59 06:59 Intake Total 1465 1262 Output Total 1999 Balance -535 1262 Result Diagrams: 05/02/20 16:56 05/02/20 04:09 Hospitalist ROS - Medication Medications: Active Medications Generic Name Dose Route Start Last Admin Trade Name Freq PRN Reason Stop Dose Admin Albuterol/Ipratropium 3 ml 04/28/20 08:07 04/30/20 01:59 Ipratropium/Albuterol Sulfate 3 Ml Neb NEB 3 ml [id number] PRN Administration SOB &/or Wheezing Aspirin 81 mg 04/28/20 09:00 05/01/20 08:10 Aspirin 81 Mg Enteric Coated Tablet PO 81 mg DAILY ALONZO Administration Atorvastatin Calcium 10 mg 04/28/20 09:00 05/01/20 08:10 Atorvastatin Calcium 10 Mg Tab PO 10 mg DAILY ALONZO Administration Carvedilol 6.25 mg 04/28/20 09:00 05/01/20 20:04 Carvedilol 6.25 Mg Tab PO 6.25 mg TID ALONZO Administration Heparin Sodium/Dextrose 500 mls @ 0 mls/hr 04/30/20 20:15 04/30/20 20:31 Heparin 25,000 Units/D5w IVPB 500 mls INF ALONZO Administration Protocol Per Protocol Nitroglycerin 0.4 mg 04/30/20 01:43 04/30/20 02:05 Nitroglycerin 0.4 Mg Tab (25 Tab Bottle) SL 0.4 mg Q5MIN PRN Administration Chest Pain Sodium Chloride 10 ml 05/01/20 21:00 05/01/20 20:05 Flush - Normal Saline 10 Ml Syringe IVF 10 ml Q12HR ALONZO Administration - Exam General Appearance: awake alert Eye: PERRL, anicteric sclera Neck - other findings: Access site: Left Heart: RRR, no murmur, no gallops Respiratory: no wheezes, no rales, no ronchi Gastrointestinal: soft, non-tender, non-distended, normal bowel sounds Extremities: no cyanosis, no clubbing Hosp A/P - Plan This is a 65-year-old female patient with a history of ESRD who is being admitted on account of pulmonary embolism and thrombosed dialysis access She just returned from surgery for permanent access and dialysis. She is generally stable and will continue monitoring. Acute pulmonary embolism Apixaban discontinued and bridged with heparin Heparin restart the surgery If no hemorrhagic case would consider starting apixaban later. Status post right IJ cuffed Tunnel hemodialysis catheter Status post surgery Urology followingappreciate input. UTI Urine growing presumptive E. coli Organism resistant to levofloxacin We will continue on Bactrim as it is sensitive Continue monitoring ESRD Dialysis yesterday Nephrology following For dialysis access surgery tomorrow COPD Scheduled/as needed duo nebs. Continue steroids Elevated troponin This is chronic Left leg pain Improved Abdominal pain No pain today Continue monitoring. VTE prophylaxistherapeutic on apixaban CODE STATUSfull code
[2020-05-02] MEDS: Atorvastatin Calcium 10 MG TAB PO SCH (13:18)
[2020-05-02] MEDS: Aspirin 81 mg Enteric Coated Tablet PO SCH (13:18)
[2020-05-02] MEDS: Carvedilol 6.25 MG TAB PO SCH ×3 (13:18→20:54)
[2020-05-02] MEDS: traMADol HCl 50 MG TAB PO PRN (13:23)
--- NOTE | 2020-05-02 15:17 | OP ---
DATE OF PROCEDURE: 05/02/2020 PREOPERATIVE DIAGNOSES: End-stage renal disease with thrombosed graft left arm with stent basilic vein and what looks like to be embolic coil cephalic vein. Recent embolus from interventional thrombectomy attempt left arm graft, on anticoagulation, poor IV access, left subclavian vein defibrillator. POSTOPERATIVE DIAGNOSES: End-stage renal disease with thrombosed graft left arm with stent basilic vein and what looks like to be embolic coil cephalic vein. Recent embolus from interventional thrombectomy attempt left arm graft, on anticoagulation, poor IV access, left subclavian vein defibrillator. PROCEDURES PERFORMED: Right IJ cuffed tunneled hemodialysis catheter, left IJ central line, ultrasound fluoroscopy used. No central line goes into the superior vena cava and can be used, it would not advance into the SVC from the left side. Right arm primary fistula perforating branch antecubital vein to proximal radial artery, outflow basilic vein. She will need a basilic vein transposition fistula in the future. ANESTHESIA: Regional, left arm TIVA, local 0.5% Marcaine 30 mL mixed with 1% Xylocaine with epinephrine 20 mL. DESCRIPTION OF PROCEDURE: The patient was taken to the operating room, where under regional anesthesia and intravenous sedation, neck and chest prepared with ChloraPrep as well as right arm, draped in routine fashion. Local anesthetic was infiltrated in the skin and subcutaneous tissue about the operative sites for placement of central lines. Using ultrasound, the right and left internal jugular veins were cannulated with trocar catheter, J-wire was threaded, trocar catheter removed. Seldinger technique was used to place a left IJ central line. Multiple attempts were made to advance the central line in the SVC, but it would instead preferentially go into the right subclavian vein, thus it was left in place and 3-0 nylon used to secure it. Sterile dressing applied. Each port aspirated blood and flushed with saline solution. Stab incision made over the right chest. Using the tunneling device, the pre-curved [employer] cuffed tunneled hemodialysis catheter tunneled between the 2 incisions, placed in the fabric cuff beneath the skin exit site and catheter secured with 2 interrupted sutures of 3-0 nylon. Sterile dressing applied. Smaller- and medium-sized dilators placed over the J-wire into the internal jugular vein removed. Dilator and Peel-Away sheath placed over the J-wire into the SVC and J-wire and dilator removed. Catheter placed with Peel-Away sheath. Peel-Away sheath removed. Platysma was approximated with 4-0 Monocryl, skin with subdermal 4-0 Monocryl and [place] glue applied. Each port aspirated blood and flushed with saline solution, heparinized saline solution with 1000 units of heparin per mL indicating volume of the port. Final fluoroscopic images revealed good line placement with the left IJ central line tip in the right subclavian vein as described. It can be used for IV access and blood draws. Attention was then turned to the right arm. There was hematoma, ecchymosis from recent IV and blood draws. Incision was made longitudinally in the proximal volar forearm below the antecubital fossa, carried down through the skin and subcutaneous tissue and an excellent size antecubital vein/basilic vein noted. Perforating branch antecubital vein dissected free down and branches divided between 4-0 silk ties and clips and spatulated over branch points and the patient given 6000 units of heparin intravenously. Vein interrogated with coronary dilators, passing coronary dilators from 2 mm to a 4 mm coronary dilator out the basilic vein outflow. It was flushed with heparinized saline solution. Atraumatic bulldog clamps were applied. Proximal artery was in excellent caliber, dissected free and controlled proximally and distally and longitudinal arteriotomy made sharply for a 2 cm anastomosis. Anastomosis was created between the end perforating branch antecubital vein to proximal artery with continuous suture of 6-0 Prolene, completing anastomosis, gaining hemostasis with 6-0 Prolene. The patient given 25 mg of protamine intravenously by Anesthesia. Good hemostasis noted. Subcutaneous tissue was approximated with 3-0 Monocryl, skin with subdermal Monocryl. Outflow was basilic vein only. She will need a transposition fistula in the future. The patient tolerated the procedure well. Job ID: [id number]
[2020-05-02 17:09] LABS: Hemoglobin 8.4 g/dL (12.0-16.0); Platelet Count 137 thou/uL (130-400)
[2020-05-02] MEDS: Heparin 25,000 units/D5W 500 ML IVPB SCH (18:33)
[2020-05-02] MEDS ORDERED: Heparin 25,000 units/D5W 500 ML IVPB SCH (20:00)
[2020-05-02] MEDS: Sulfamethoxazole/Trimethoprim 160 MG in Dextrose 5% in Water 250 ML IVPB SCH (20:59)
[2020-05-02] MEDS ORDERED: Apixaban 2.5 MG TAB PO SCH (21:00)
[2020-05-02] MEDS ORDERED: Heparin 5,000 UNITS/ML VIAL SC SCH (21:00)
[2020-05-03] MEDS: Acetaminophen 500 MG TAB PO PRN ×2 (00:15→09:37)
[2020-05-03] MEDS: traMADol HCl 50 MG TAB PO PRN (00:45)
[2020-05-03 02:34] LABS: PTT 191.4 sec (22.9-36.1)
[2020-05-03 05:09] LABS: Anion Gap 14 mmol/L (10-20); BUN (Urea Nitrogen) 16 mg/dL (9.8-20.1); Calc. Creatinine Clearance 15 mL/min (70-130); Calcium 7.9 mg/dL (7.8-10.44); Carbon Dioxide 25 mmol/L (23-31); Chloride 100 mmol/L (98-107); Estimated GFR-MDRD 15; Glucose 88 mg/dL (80-115); Potassium 3.4 mmol/L (3.5-5.1); Sodium 136 mmol/L (136-145)
[2020-05-03 05:19] LABS: Band 14 % (5-11); Eosinophils 4 % (0-10); Hemoglobin 6.3 g/dL (12.0-16.0); Lymphocytes 14 % (21-51); MDiff Complete? YES; Mean Corpuscular HGB CONC 32.1 g/dL (32.0-36.0); Mean Platelet Volume 7.4 fL (7.4-10.4); Monocytes 9 % (0-10); Neutrophil 59 % (42-75); Platelet Count 128 thou/uL (130-400); RBC Distribution Width 17.4 % (11.5-14.5); Red Blood Cell (RBC) Count 1.89 mill/uL (4.20-5.40); White Blood Cell (WBC) Count 4.2 thou/uL (4.8-10.8)
--- NOTE | 2020-05-03 09:19 | PRG ---
DATE OF SERVICE: 05/03/2020 SUBJECTIVE: Ms. Sullivan is a 65-year-old black female with ESRD, was admitted for pulmonary embolism. She is currently being anticoagulated. She also was found to have a nonfunctioning left AV graft. A cuffed-hemodialysis catheter and right AV graft were placed by Dr. Zhang yesterday. No new complaints today. She was found to have symptomatic anemia this morning with a hemoglobin of 6.3. Plan is to give her 1 unit of packed RBC. OBJECTIVE: VITAL SIGNS: Blood pressure is 103/52, heart rate 74, respiratory rate 14, temperature 97.4, and O2 saturation 93%. GENERAL: Awake, alert, comfortable, not in distress. SKIN: Adequate turgor. HEENT: Pale conjunctivae. Anicteric sclerae. NECK: No neck mass. No carotid bruits. No JVD. CHEST: No deformities. LUNGS: Clear breath sounds. HEART: Normal sinus rhythm. No murmurs. No gallops. No rubs. ABDOMEN: Globular, soft, nontender. No masses. EXTREMITIES: No edema. No deformities. MEDICATIONS: May 03, 2020, reviewed. LABORATORY DATA: May 03, 2020; white count 4.2, hemoglobin 6.3, hematocrit 19.5. Sodium 136, potassium 3.4, chloride 100, carbon dioxide 25, BUN 16, creatinine 3.75, GFR 15 mL/minute, and calcium 7.9. ASSESSMENT AND PLAN: 1. Anemia - we will transfuse 1 unit of packed RBC today, and if needed, we can give a second unit. Please note, she had some bleeding around the right groin site, where the dressing was noted to be soaked with blood. 2. End-stage renal disease, stable. We will continue current hemodialysis regimen of Thursday, Thursday, and Thursday. Minimize to no heparin use. 3. Pulmonary embolism. Currently, the patient is on heparin drip. Consider converting her to Eliquis. The surgery has been done with this patient. Recheck CBC and basic metabolic panel in a.m. Job ID: [id number]
[2020-05-03] MEDS: Carvedilol 6.25 MG TAB PO SCH ×3 (09:36→20:50)
[2020-05-03] MEDS: Aspirin 81 mg Enteric Coated Tablet PO SCH (09:36)
[2020-05-03] MEDS: Atorvastatin Calcium 10 MG TAB PO SCH (09:36)
[2020-05-03] MEDS: Sulfamethoxazole/Trimethoprim 160 MG in Dextrose 5% in Water 250 ML IVPB SCH ×2 (09:58→20:50)
--- NOTE | 2020-05-03 14:25 | PRG ---
DATE OF SERVICE: 05/03/2020 Dai Sullivan is doing well today. She is status post 05/02/2020 right arm fistula. Basilic vein was very good and a prosthetic graft was not necessary. She will need a staged basilic vein transposition fistula in the next 4 to 5 weeks. She should follow up in my office in 3 to 4 weeks. At this point, I will see her as needed this hospitalization. Please call if necessary. She is stable for discharge from a surgery standpoint any time. Job ID: [id number]
--- NOTE | 2020-05-03 15:01 | PDOC.HOSPP ---
- Subjective Encounter Date: 05/03/20 Encounter Time: 11:00 Subjective: Patient was seen and examined in bed. Overnight she cleared from her right groin. The size of that has been moved. Heparin drip was held on account of supratherapeutic APTT. She feels generally weak. Hemoglobin dropped to 7 and is been to receive 1 unit. - Objective Vital Signs & Weight: Vital Signs (12 hours) Temp Pulse Resp BP Pulse Ox 05/03/20 12:21 97.4 F L 70 16 109/55 L 96 05/03/20 08:07 93 L 05/03/20 07:37 97.4 F L 74 14 103/52 L 93 L 05/03/20 03:58 97.7 F 92 18 110/54 L 93 L Weight Weight 136 lb 0.403 oz I&O: 05/02/20 05/03/20 05/04/20 06:59 06:59 06:59 Intake Total 1262 1301.8 350 Output Total 2000 Balance 1262 -698.2 350 Result Diagrams: 05/03/20 04:24 05/03/20 04:24 Hospitalist ROS - Medication Medications: Active Medications Generic Name Dose Route Start Last Admin Trade Name Freq PRN Reason Stop Dose Admin Acetaminophen 1,000 mg 05/01/20 17:31 05/03/20 09:37 Acetaminophen 500 Mg Tab PO 1,000 mg Q6H PRN Administration Moderate to Severe Pain (6-10) Albuterol/Ipratropium 3 ml 04/28/20 08:07 04/30/20 01:59 Ipratropium/Albuterol Sulfate 3 Ml Neb NEB 3 ml [id number] PRN Administration SOB &/or Wheezing Aspirin 81 mg 04/28/20 09:00 05/03/20 09:36 Aspirin 81 Mg Enteric Coated Tablet PO 81 mg DAILY ALONZO Administration Atorvastatin Calcium 10 mg 04/28/20 09:00 05/03/20 09:36 Atorvastatin Calcium 10 Mg Tab PO 10 mg DAILY ALONZO Administration Carvedilol 6.25 mg 04/28/20 09:00 05/03/20 14:46 Carvedilol 6.25 Mg Tab PO Not Given TID ALONZO Trimethoprim/Sulfamethoxazole 250 mls @ 166.667 mls/hr 05/02/20 20:00 05/03/20 09:58 160 mg/ Dextrose/Water IVPB 250 mls Q12H ALONZO Administration Nitroglycerin 0.4 mg 04/30/20 01:43 04/30/20 02:05 Nitroglycerin 0.4 Mg Tab (25 Tab Bottle) SL 0.4 mg Q5MIN PRN Administration Chest Pain Sodium Chloride 10 ml 05/01/20 21:00 05/03/20 10:26 Flush - Normal Saline 10 Ml Syringe IVF 10 ml Q12HR ALONZO Administration Tramadol HCl 50 mg 05/02/20 10:49 05/03/20 00:45 Tramadol Hcl 50 Mg Tab PO 50 mg Q12H PRN Administration Moderate Pain (4-6) - Exam General Appearance: awake alert Eye: PERRL, anicteric sclera Heart: RRR, no murmur, no gallops, no rubs, normal peripheral pulses Respiratory: no wheezes, no rales, no ronchi, normal chest expansion Gastrointestinal: soft, non-tender, non-distended, normal bowel sounds Neurological: cranial nerve grossly intact, no focal deficits Psychiatric: A&O x 3 Hosp A/P - Plan This is a 65-year-old female patient with a history of ESRD who is being admitted on account of pulmonary embolism and thrombosed dialysis access She had surgery for permanent access and dialysis. Had acute hemorrhage from catheter site from right groin overnighted hemoglobin dropped to 6 currently needing transfusion. We will transfuse, monitor overnight Anemia Secondary to blood loss/ESRD Hemoglobin dropped to 6 Receiving 2 units this morning Acute pulmonary embolism Apixaban discontinued and bridged with heparin Currently postoprestart apixaban Status post right IJ cuffed Tunnel hemodialysis catheter Status post surgery Urology followingappreciate input. UTI Urine growing presumptive E. coli Organism resistant to levofloxacin We will continue on Bactrim as it is sensitive Continue monitoring ESRD Dialysis yesterday Nephrology following For dialysis access surgery tomorrow COPD Scheduled/as needed duo nebs. Continue steroids Elevated troponin This is chronic Left leg pain Improved Abdominal pain No pain today Continue monitoring. VTE prophylaxistherapeutic on apixaban CODE STATUSfull code
[2020-05-03 17:57] LABS: Anion Gap 15 mmol/L (10-20); Anisocytosis SLIGHT = 6-15 cells (100X) (0-5/hpf); BUN (Urea Nitrogen) 19 mg/dL (9.8-20.1); Band 5 % (5-11); Calc. Creatinine Clearance 12 mL/min (70-130); Calcium 8.5 mg/dL (7.8-10.44); Carbon Dioxide 26 mmol/L (23-31); Chloride 98 mmol/L (98-107); Eosinophils 2 % (0-10); Estimated GFR-MDRD 12; Glucose 90 mg/dL (80-115); Hemoglobin 7.8 g/dL (12.0-16.0); Lymphocytes 17 % (21-51); MDiff Complete? YES; Mean Corpuscular HGB CONC 33.7 g/dL (32.0-36.0); Mean Corpuscular Hemoglobin 32.9 pg (27.0-31.0); Mean Corpuscular Volume 97.6 fL (78.0-98.0); Mean Platelet Volume 7.7 fL (7.4-10.4); Monocytes 10 % (0-10); Neutrophil 65 % (42-75); Platelet Count 155 thou/uL (130-400); Platelet Morphology Comment Appears Adequate; Polychromasia MODERATE = 3-4 cells (100X) (0-2/hpf); Potassium 3.5 mmol/L (3.5-5.1); RBC Distribution Width 17.9 % (11.5-14.5); Reactive Lymphocytes 1 % (0-10); Red Blood Cell (RBC) Count 2.36 mill/uL (4.20-5.40); Sodium 135 mmol/L (136-145); Spherocytes SLIGHT = 1-5 cells (100X) (None Seen); Target Cells SLIGHT = 2-5 cells (100X) (0-1/hpf); White Blood Cell (WBC) Count 4.5 thou/uL (4.8-10.8)
[2020-05-03] MEDS: Apixaban 2.5 MG TAB PO SCH (20:50)
[2020-05-04] MEDS: traMADol HCl 50 MG TAB PO PRN (02:33)
[2020-05-04 04:44] LABS: Anion Gap 13 mmol/L (10-20); BUN (Urea Nitrogen) 23 mg/dL (9.8-20.1); Calc. Creatinine Clearance 11 mL/min (70-130); Calcium 8.4 mg/dL (7.8-10.44); Carbon Dioxide 26 mmol/L (23-31); Chloride 99 mmol/L (98-107); Estimated GFR-MDRD 10; Glucose 76 mg/dL (80-115); Potassium 3.3 mmol/L (3.5-5.1); Sodium 135 mmol/L (136-145)
[2020-05-04 04:50] LABS: Band 2 % (5-11); Hemoglobin 7.2 g/dL (12.0-16.0); Hypochromia SLIGHT = 6-15 cells (100X) (0-5/hpf); Lymphocytes 4 % (21-51); MDiff Complete? YES; Mean Corpuscular HGB CONC 31.8 g/dL (32.0-36.0); Mean Corpuscular Hemoglobin 31.6 pg (27.0-31.0); Mean Corpuscular Volume 99.4 fL (78.0-98.0); Mean Platelet Volume 7.3 fL (7.4-10.4); Monocytes 18 % (0-10); Neutrophil 76 % (42-75); Platelet Count 154 thou/uL (130-400); Platelet Morphology Comment Appears Adequate; RBC Distribution Width 17.9 % (11.5-14.5); Red Blood Cell (RBC) Count 2.27 mill/uL (4.20-5.40); Target Cells SLIGHT = 2-5 cells (100X) (0-1/hpf); White Blood Cell (WBC) Count 3.9 thou/uL (4.8-10.8)
--- NOTE | 2020-05-04 08:59 | PRG ---
DATE OF SERVICE: 05/04/2020 SERVICE: Renal Medicine. SUBJECTIVE: Ms. Sullivan is a 65-year-old black female with ESRD, initially admitted for pulmonary embolism. She is currently being anticoagulated. She also has a nonfunctional left AV graft. Surgery placed a cuffed hemodialysis catheter as well as a right AV graft. We are following her up for maintenance hemodialysis. She is undergoing hemodialysis. Yesterday due to the anemia-hemoglobin was 6.3, she was given 1 unit of packed RBC. Recheck of her hemoglobin shows a value of 7.2. Our plan is to give her another unit of packed RBC with dialysis. She voices no new complaints. No chest pain or shortness of breath. OBJECTIVE: VITAL SIGNS: Blood pressure is 104/55, heart rate 78, respiratory rate 16, temperature 98.6, O2 saturation is 78%?-recheck is 95%. GENERAL: She is noted to be awake, alert, comfortable, not in distress. SKIN: Adequate turgor. HEENT: Slightly pale conjunctivae. Anicteric sclerae. NECK: No neck mass. No carotid bruits. No JVD. CHEST: No deformities. LUNGS: Clear breath sounds. No wheezing. No crackles. HEART: Normal sinus rhythm. No murmurs, gallops, or rubs. ABDOMEN: Globular, soft, nontender. No masses. EXTREMITIES: No edema. No deformities. MEDICATIONS: On May 04, 2020, were reviewed. LABORATORY DATA: On May 04, 2020; white count 3.9, hemoglobin 7.2. Sodium 135, potassium 3.3, chloride 99, carbon dioxide 26, BUN 23, creatinine 5.13, glucose 76, calcium 8.4. ASSESSMENT AND PLAN: 1. Acute pulmonary embolism, currently on Eliquis at 2.5 mg p.o. b.i.d., off heparin drip. 2. Anemia. We will transfuse 1 unit of packed RBC. Check stool cards for occult blood. 3. End-stage renal disease, stable. Continuing heparin-free hemodialysis. Fluid removal only as tolerated. 4. Anemia - Chek stool cards for occult blood 5. Holding off Epogen due to the recent pulmonary embolism. 6. Recheck CBC and basic metabolic in a.m. Job ID: [id number] [facility]
[2020-05-04] MEDS ORDERED: Heparin 10,000 UNITS/ 10 ML VIAL ONE (12:13)
[2020-05-04] MEDS: Atorvastatin Calcium 10 MG TAB PO SCH (12:36)
[2020-05-04] MEDS: Apixaban 2.5 MG TAB PO SCH ×2 (12:36→21:44)
[2020-05-04] MEDS: Aspirin 81 mg Enteric Coated Tablet PO SCH (12:36)
[2020-05-04] MEDS: Carvedilol 6.25 MG TAB PO SCH ×3 (12:42→21:44)
[2020-05-04] MEDS: Sulfamethoxazole/Trimethoprim 160 MG in Dextrose 5% in Water 250 ML IVPB SCH ×2 (13:52→21:00)
--- NOTE | 2020-05-04 14:17 | PDOC.HOSPP ---
- Subjective Encounter Date: 05/04/20 Encounter Time: 10:30 Subjective: Patient was seen and examined in bed. She had just finished dialysis. She was feeling little weak. Complaining of pain in her left leg. Denies any chest pain or shortness of breath. No significant event tonight. - Objective Vital Signs & Weight: Vital Signs (12 hours) Temp Pulse Resp BP Pulse Ox 05/04/20 12:35 99.0 F 84 16 127/58 L 93 L 05/04/20 07:05 98.6 F 78 16 104/55 L 93 L 05/04/20 03:26 98.2 F 71 16 98/50 L 95 Weight Weight 139 lb 11.2 oz I&O: 05/03/20 05/04/20 05/05/20 06:59 06:59 06:59 Intake Total 1301.8 1250 Output Total 1999 Balance -698.2 1250 Result Diagrams: 05/06/20 04:10 05/06/20 04:10 EKG Reviewed by me: Yes (Sinus rhythm on telemetry) Hospitalist ROS - Medication Medications: Active Medications Generic Name Dose Route Start Last Admin Trade Name Freq PRN Reason Stop Dose Admin Acetaminophen 1,000 mg 05/01/20 17:31 05/03/20 09:37 Acetaminophen 500 Mg Tab PO 1,000 mg Q6H PRN Administration Moderate to Severe Pain (6-10) Albuterol/Ipratropium 3 ml 04/28/20 08:07 04/30/20 01:59 Ipratropium/Albuterol Sulfate 3 Ml Neb NEB 3 ml [id number] PRN Administration SOB &/or Wheezing Apixaban 2.5 mg 05/03/20 21:00 05/04/20 12:36 Apixaban 2.5 Mg Tab PO 2.5 mg BID ALONZO Administration Aspirin 81 mg 04/28/20 09:00 05/04/20 12:36 Aspirin 81 Mg Enteric Coated Tablet PO 81 mg DAILY ALONZO Administration Atorvastatin Calcium 10 mg 04/28/20 09:00 05/04/20 12:36 Atorvastatin Calcium 10 Mg Tab PO 10 mg DAILY ALONZO Administration Carvedilol 6.25 mg 04/28/20 09:00 05/04/20 12:42 Carvedilol 6.25 Mg Tab PO 6.25 mg TID AOLNZO Administration Trimethoprim/Sulfamethoxazole 250 mls @ 166.667 mls/hr 05/02/20 20:00 05/04/20 13:52 160 mg/ Dextrose/Water IVPB 250 mls Q12H ALONZO Administration Nitroglycerin 0.4 mg 04/30/20 01:43 04/30/20 02:05 Nitroglycerin 0.4 Mg Tab (25 Tab Bottle) SL 0.4 mg Q5MIN PRN Administration Chest Pain Sodium Chloride 10 ml 05/01/20 21:00 05/04/20 12:43 Flush - Normal Saline 10 Ml Syringe IVF 10 ml Q12HR ALONZO Administration Tramadol HCl 50 mg 05/02/20 10:49 05/04/20 02:33 Tramadol Hcl 50 Mg Tab PO 50 mg Q12H PRN Administration Moderate Pain (4-6) - Exam General Appearance: awake alert Eye: PERRL, anicteric sclera Eye - other findings: No pallor Heart: RRR, no murmur, no gallops, no rubs Respiratory: no wheezes, no rales, no ronchi, no tachypnea Gastrointestinal: soft, non-tender, non-distended, normal bowel sounds Extremities: no cyanosis, no clubbing, no edema Extremities - other findings: No tenderness. Neurological: cranial nerve grossly intact, normal sensation to touch, no weakness, no focal deficits Hosp A/P - Plan This is a 65-year-old female patient with a history of ESRD who is being admit valerio on account of pulmonary embolism from thrombosed dialysis access She status post right IJ Tunneled hemodialysis catheter placement by surgery Hospital stay complicated with anemia and has received a couple of blood transfusions. She is currently on anticoagulation on Eliquis. Also having UTI on antibiotics We will monitor H&H, possible discharge tomorrow Anemia In the setting of ESRD/hemorrhage from groin catheter site on removal. Hemoglobin 7.2 today Received 1 unit yesterday and now this morning dialysis Monitor H&H Possible discharge tomorrow if hemoglobin stable Acute pulmonary embolism Apixaban discontinued and bridged with heparin Currently postoprestart apixaban Status post right IJ cuffed Tunnel hemodialysis catheter Status post surgery Urology followingappreciate input. UTI Urine growing presumptive E. coli Organism resistant to levofloxacin We will continue on Bactrim as it is sensitive Continue monitoring ESRD Dialysis yesterday Nephrology following For dialysis access surgery tomorrow COPD Scheduled/as needed duo nebs. Continue steroids Elevated troponin This is chronic Left leg pain Improved PRN Tylenol She is allergic to codeine Abdominal pain No pain today Continue monitoring. VTE prophylaxistherapeutic on apixaban CODE STATUSfull code
[2020-05-04 14:37] LABS: Platelet Count 167 thou/uL (130-400)
[2020-05-04] MEDS ORDERED: Electrolyte Replacement Protoc 1 EACH EACH FS SCH (16:00)
[2020-05-04] MEDS ORDERED: Sodium Chloride 0.9% 500 ML IV SCH (16:15)
[2020-05-05] MEDS: traMADol HCl 50 MG TAB PO PRN ×2 (02:46→17:41)
[2020-05-05] MEDS: Methyl Salicylate/Menthol 85 GM TUBE TOP PRN ×2 (04:34→09:18)
[2020-05-05 05:08] LABS: Anion Gap 13 mmol/L (10-20); BUN (Urea Nitrogen) 11 mg/dL (9.8-20.1); Calc. Creatinine Clearance 16 mL/min (70-130); Calcium 8.7 mg/dL (7.8-10.44); Carbon Dioxide 30 mmol/L (23-31); Chloride 98 mmol/L (98-107); Estimated GFR-MDRD 16; Glucose 87 mg/dL (80-115); Potassium 3.6 mmol/L (3.5-5.1); Sodium 137 mmol/L (136-145)
[2020-05-05 05:27] LABS: Band 7 % (5-11); Eosinophils 2 % (0-10); Hemoglobin 8.7 g/dL (12.0-16.0); Lymphocytes 10 % (21-51); MDiff Complete? YES; Mean Corpuscular HGB CONC 33.4 g/dL (32.0-36.0); Mean Corpuscular Hemoglobin 32.6 pg (27.0-31.0); Mean Corpuscular Volume 97.7 fL (78.0-98.0); Mean Platelet Volume 7.2 fL (7.4-10.4); Monocytes 17 % (0-10); Neutrophil 64 % (42-75); Platelet Count 172 thou/uL (130-400); Platelet Morphology Comment Appears Adequate; RBC Distribution Width 17.5 % (11.5-14.5); RBC Morphology Normal; Red Blood Cell (RBC) Count 2.66 mill/uL (4.20-5.40); White Blood Cell (WBC) Count 4.6 thou/uL (4.8-10.8)
[2020-05-05] MEDS: Aspirin 81 mg Enteric Coated Tablet PO SCH (09:16)
[2020-05-05] MEDS: Acetaminophen 500 MG TAB PO PRN (09:16)
[2020-05-05] MEDS: Apixaban 2.5 MG TAB PO SCH ×2 (09:17→20:22)
[2020-05-05] MEDS: Carvedilol 6.25 MG TAB PO SCH ×3 (09:17→20:23)
[2020-05-05] MEDS: Atorvastatin Calcium 10 MG TAB PO SCH (09:18)
[2020-05-05] MEDS: Sulfamethoxazole/Trimethoprim 160 MG in Dextrose 5% in Water 250 ML IVPB SCH (09:44)
--- NOTE | 2020-05-05 10:23 | PRG ---
DATE OF SERVICE: 05/05/2020 SERVICE: Renal Medicine. SUBJECTIVE: Ms. Sullivan is a 65-year-old black female with ESRD and initially admitted for pulmonary embolism. She has been anticoagulated. She is off IV heparin, but on Eliquis. She also has been found to have a drop in her hemoglobin to as low as 6.3. Stool occults were rechecked and it showed positive stools for occult blood. She has received several units of packed RBC. She has had also history of previous GI bleed from an AV malformation and has undergone p.r.n. cauterization with this. No new complaints today. No chest pain or shortness of breath. OBJECTIVE: VITAL SIGNS: Blood pressure is noted at 124/58 with a heart rate of 80, respiratory rate 20, temperature 98.5, O2 saturation 92%. GENERAL: The patient is awake, comfortable, somewhat lethargic but not in distress. SKIN: Adequate turgor. HEENT: Slightly pale conjunctivae. Anicteric sclerae. No neck mass. No carotid bruits. No JVD. CHEST: No deformities. LUNGS: Clear breath sounds. HEART: Normal sinus rhythm. No murmurs. No gallops. No rubs. ABDOMEN: Globular, soft, nontender. No masses. EXTREMITIES: No edema. No deformities. MEDICATIONS: May 05, 2020, were reviewed. LABORATORY DATA: May 05, 2020; white count 4.6, hemoglobin 8.7. Sodium 137, potassium 3.6, chloride 98, carbon dioxide 30, BUN 11, creatinine 3.49, glucose 87, calcium 8.7. Stools for occult blood positive. ASSESSMENT AND PLAN: 1. Anemia - rule out an active gastrointestinal bleed. GI consult will be done. Please note, the patient is on renal dose of Eliquis at 2.5 mg tablet b.i.d. due to the recent history of pulmonary embolism. She is off her IV heparin drip. 2. End-stage renal disease, stable, tolerating current hemodialysis regimen. We will continue Thursday, Thursday, and Thursday hemodialysis. Again, fluid removal only as tolerated by the patient. 3. Anemia. P.r.n. blood transfusion. Epogen was placed on hold due to recent history of pulmonary embolism. We will resume Epogen in a few days' time. 4. We will recheck CBC and basic metabolic panel in a.m. Job ID: [id number]
--- NOTE | 2020-05-05 16:35 | PDOC.HOSPP ---
- Subjective Encounter Date: 05/05/20 Encounter Time: 11:50 Subjective: pt up in bed no complains. - Objective Vital Signs & Weight: Vital Signs (12 hours) Temp Pulse Resp BP Pulse Ox 05/05/20 11:30 98.5 F 70 16 98/49 L 98 05/05/20 07:00 98.0 F 81 18 142/64 H 100 Weight Weight 125 lb 0.034 oz I&O: 05/04/20 05/05/20 05/06/20 06:59 06:59 06:59 Intake Total 1250 840 Balance 1250 840 Result Diagrams: 05/05/20 04:00 05/05/20 04:00 Hospitalist ROS - Review of Systems Gastrointestinal: denies: nausea, vomiting, abdominal pain, diarrhea, constipation, melena, hematochezia, other Genitourinary: denies: dysuria, frequency, incontinence, hematuria, retention, other - Medication Medications: Active Medications Generic Name Dose Route Start Last Admin Trade Name Freq PRN Reason Stop Dose Admin Acetaminophen 1,000 mg 05/01/20 17:31 05/05/20 09:16 Acetaminophen 500 Mg Tab PO 1,000 mg Q6H PRN Administration Moderate to Severe Pain (6-10) Albuterol/Ipratropium 3 ml 04/28/20 08:07 04/30/20 01:59 Ipratropium/Albuterol Sulfate 3 Ml Neb NEB 3 ml [id number] PRN Administration SOB &/or Wheezing Apixaban 2.5 mg 05/03/20 21:00 05/05/20 09:17 Apixaban 2.5 Mg Tab PO 2.5 mg BID ALONZO Administration Aspirin 81 mg 04/28/20 09:00 05/05/20 09:16 Aspirin 81 Mg Enteric Coated Tablet PO 81 mg DAILY ALONZO Administration Atorvastatin Calcium 10 mg 04/28/20 09:00 05/05/20 09:18 Atorvastatin Calcium 10 Mg Tab PO 10 mg DAILY ALONZO Administration Carvedilol 6.25 mg 04/28/20 09:00 05/05/20 15:54 Carvedilol 6.25 Mg Tab PO 6.25 mg TID ALONZO Administration Menthol/Methyl Salicylate 1 gm 05/04/20 16:19 05/05/20 09:18 Methyl Salicylate/Menthol 85 Gm Tube TOP 1 gm QID PRN Administration Pain Nitroglycerin 0.4 mg 04/30/20 01:43 04/30/20 02:05 Nitroglycerin 0.4 Mg Tab (25 Tab Bottle) SL 0.4 mg Q5MIN PRN Administration Chest Pain Sodium Chloride 10 ml 05/01/20 21:00 05/05/20 09:18 Flush - Normal Saline 10 Ml Syringe IVF 10 ml Q12HR ALONZO Administration Tramadol HCl 50 mg 05/02/20 10:49 05/05/20 02:46 Tramadol Hcl 50 Mg Tab PO 50 mg Q12H PRN Administration Moderate Pain (4-6) - Exam Heart: negative: RRR, no murmur, no gallops, no rubs, normal peripheral pulses, irregular, diminshed peripheral pulses, murmur present, II/IV, III/IV Respiratory: negative: CTAB, no wheezes, no rales, no ronchi, normal chest expansion, no tachypnea, normal percussion, rales, rhonchi, tachypneic, wheezes Gastrointestinal: negative: soft, non-tender, non-distended, normal bowel sounds, no palpable masses, no hepatomegaly, no splenomegaly, no bruit, no guarding, no rigidity, tender to palpation, distended, diminished bowl sounds, voluntary guarding Extremities: 1+ LE edema Hosp A/P (1) Acute exacerbation of CHF (congestive heart failure) Code(s): I50.9 - HEART FAILURE, UNSPECIFIED Status: Acute Qualifiers: Heart failure type: systolic Qualified Code(s): I50.23 - Acute on chronic systolic (congestive) heart failure (2) Symptomatic anemia Code(s): D64.9 - ANEMIA, UNSPECIFIED Status: Acute (3) Anemia of renal disease Code(s): D63.1 - ANEMIA IN CHRONIC KIDNEY DISEASE Status: Chronic (4) ESRD (end stage renal disease) Code(s): N18.6 - END STAGE RENAL DISEASE Status: Chronic (5) HTN (hypertension) Code(s): I10 - ESSENTIAL (PRIMARY) HYPERTENSION Status: Chronic Qualifiers: Hypertension type: essential hypertension Qualified Code(s): I10 - Essential (primary) hypertension (6) Moderate tricuspid insufficiency Code(s): I07.1 - RHEUMATIC TRICUSPID INSUFFICIENCY Status: Chronic (7) Pulmonary emboli Code(s): I26.99 - OTHER PULMONARY EMBOLISM WITHOUT ACUTE COR PULMONALE Status: Acute (8) UTI (urinary tract infection) Status: Acute - Plan Patient is a 65-year-old female who initially presented to the hospital with complaints of shortness of breath. Patient is on end-stage renal disease on dialysis. Patient also had abdominal pain and left lower extremity pain. Patient had a CTA done in the ER which indicated a right pulmonary embolism. Patient CTA indicated nearly occlusive pulmonary embolism involving the segmental pulmonary artery. Patient's AV fistula is nonfunctional and she underwent a placement of a cuffed hemodialysis catheter. Patient spiked a fever of 100.7 after dialysis. At this time her urine indicated positive nitrates. Patient was initially treated with IV Bactrim given her severe penicillin allergy. Patient had an echocardiogram which indicated an EF of 20 to 25% with severe mitral regurgitation. He also has severe tricuspid regurgitation. 05/05 patient received a dose of cefepime on November 01. Given patient's anxieties will start patient on cefepime for UTI given that she had a fever of 100.7 and her urine was positive for nitrites. GI to see patient in terms of anemia. We will continue Eliquis for now. Patient has been transfused with 38 units of PRBCs over the course of patient's admissions.
[2020-05-05] MEDS ORDERED: Cefepime 1 GM in Sodium Chloride 0.9% 100 ML IVPB SCH (16:45)
[2020-05-05] MEDS: Pantoprazole 40 MG VIAL IVP SCH (20:23)
[2020-05-06 04:48] LABS: #Eosinphils 0.1 thou/uL (0.0-0.7); #Lymphocytes 0.6 thou/uL (1.20-3.40); #Monocytes 0.5 thou/uL (0.11-0.59); #Neutrophils 2.7 thou/uL (1.40-6.50); %Basophils 0.2 % (0.0-1.0); %Eosinophils 2.5 % (0.0-10.0); %Lymphocytes 16.3 % (21.0-51.0); %Monocytes 12.7 % (0.0-10.0); %Neutrophils 68.2 % (42.0-75.0); Hemoglobin 8.1 g/dL (12.0-16.0); Mean Corpuscular HGB CONC 33.1 g/dL (32.0-36.0); Mean Corpuscular Hemoglobin 32.3 pg (27.0-31.0); Mean Corpuscular Volume 97.8 fL (78.0-98.0); Mean Platelet Volume 7.3 fL (7.4-10.4); Platelet Count 153 thou/uL (130-400); RBC Distribution Width 17.8 % (11.5-14.5); White Blood Cell (WBC) Count 3.9 thou/uL (4.8-10.8)
[2020-05-06 05:08] LABS: Anion Gap 15 mmol/L (10-20); BUN (Urea Nitrogen) 18 mg/dL (9.8-20.1); Calc. Creatinine Clearance 10 mL/min (70-130); Calcium 8.8 mg/dL (7.8-10.44); Carbon Dioxide 27 mmol/L (23-31); Chloride 98 mmol/L (98-107); Estimated GFR-MDRD 10; Glucose 80 mg/dL (80-115); Potassium 3.8 mmol/L (3.5-5.1); Sodium 136 mmol/L (136-145)
[2020-05-06] MEDS: Acetaminophen 500 MG TAB PO PRN (06:12)
--- NOTE | 2020-05-06 07:52 | CON ---
DATE OF CONSULTATION: REASON FOR CONSULTATION: Heme-positive stool. HISTORY OF PRESENT ILLNESS: Ms. Sullivan is a 65-year-old black female, well known to me. I have been asked to see her with regard to anemia, heme-positive stool. I initially saw her in 2007 with anemia, nausea, and vomiting, started shortly after she began hemodialysis. At that time, she had normal upper and lower endoscopies except for hemorrhoids and was found to have hepatitis C. In 2012, she was treated for hepatitis C at [facility] and has cleared that infection. She also had an upper endoscopy at that time again and was found to have H pylori, which was treated and cured. In 2016, she had another EGD and colonoscopy with normal colon and some AVMs in her stomach and duodenum that were cauterized. She began to have a lot more bleeding around that time because she had a stent placed either at [facility] or [facility] and was on Eliquis. She required quite a few transfusions. Ultimately had a capsule endoscopy in 2016, which just showed some small nonbleeding AVMs that were felt to be the source of her anemia along with chronic disease of end-stage renal disease and peripheral vascular disease. In 2018, she had an EGD with a few small AVMs that were nonbleeding, cauterized. She had a large hemorrhoid that was removed. I last saw her in 05/2019 in our office where she had negative hepatoma screening, had a hemoglobin of 11. In 12/2017, it was her last endoscopy with us and she had respiratory distress and arrest during endoscopy. It was decided at that time that she would not have further endoscopies unless she had severe hemorrhage as she was felt to be very high risk from anesthesia standpoint for her cardiac and renal disease. Apparently, she was admitted on 04/27 in [facility] when she was having a declot of her left arm dialysis access fistula, she became short of breath acutely. She was found to have a pulmonary embolus here. At the same time, I think she had a CAT scan of her abdomen and pelvis, which was unremarkable. Apparently, the patient was started on apixaban, Eliquis 2.5 mg b.i.d. for renal dosing morphine, Zofran, and Pepcid. She was seen by Nephrology for dialysis here and was seen by General Surgery for vascular access and had a central line placed on 04/29, right femoral. Dr. Zhang then saw her on 04/30 to figure out what they were going to do for vascular access for dialysis. Ultimately catheter was placed, right IJ tunnel cuff, left IJ central line. Apparently, when the femoral catheter was taken out, there was significant amount of bleeding and ultimately resulted in transfusion. The patient notes she thinks her stool may have been a bit darker, but she has had no diarrhea. She has had no nausea or vomiting. She has been eating well. She did have a stool for occult blood, that was positive today. Last transfusion before this admission was 10/2018. Recently, she has been transfused a unit on the and then she has received 2 units, one on the and one on the . She attributes this to the amount of blood loss with manipulating the right groin catheter. She is not having multiple stools a day. She feels well. PAST MEDICAL HISTORY: 1. Cardiomyopathy, EF 20% to 25%. 2. Chronic anemia with history of elevated ferritin, normal iron, and low TIBC. She has been felt to have a mixed anemia with some blood loss from her AVMs and probably mild portal hypertension related to her prior hepatitis C and cirrhosis. OTHER MEDICAL HISTORY: Includes: 1. Hepatitis C, which has been treated. 2. Thrombocytopenia secondary to portal hypertension. 3. Right heart failure with enlarged right ventricle. PAST SURGICAL HISTORY: 1. Left subclavian vein pacemaker. 2. Carotid endarterectomy. 3. Cholecystectomy. 4. Defibrillator. 5. Hemorrhoidectomy. 6. Right coronary artery stent. 7. Previous history of intestinal AVMs. HOME MEDICATIONS: 1. Aspirin. 2. Carvedilol. 3. Atorvastatin. 4. Proventil. 5. She had previously been on Plavix, but this was held as while she was on it, she required transfusions almost weekly. 6. She reports she has not been on iron in some time and her iron levels are monitored at dialysis. 7. Midodrine. PRESENT MEDICATIONS: 1. Tylenol. 2. DuoNeb. 3. Eliquis 2.5 mg b.i.d. 4. Ecotrin 81 mg daily. 5. Lipitor. 6. Carvedilol. 7. Menthol and Methylsalicylate 1 g q.i.d. p.r.n. 8. Nitrostat p.r.n. 9. Tramadol p.r.n. 10. Bactrim p.r.n. SOCIAL HISTORY: Negative for alcohol, drugs, or tobacco. REVIEW OF SYSTEMS: Negative for overt edema. Positive for dyspnea on exertion. Positive for orthopnea. Negative for development of ascites recently. Negative for abdominal pain. Negative for rashes, myalgias, arthralgias, or other bleeding. PHYSICAL EXAMINATION: VITAL SIGNS: Blood pressure is 108/53, temperature 98.5, pulse 70, and respirations 16. GENERAL: She is in very good disposition. She is resting comfortably. LUNGS: Clear. HEART: Regular without clicks or murmurs. ABDOMEN: Soft and nontender. There is no palpable hepatosplenomegaly. EXTREMITIES: No clubbing, cyanosis, or edema. SKIN: Dialysis catheter graft is present in the right arm. She has central lines in the neck. RECTAL: Dark stool, but is not melenic. It is somewhat green, it is not tarry at all. It is reportedly Hemoccult-positive from earlier today. ASSESSMENT: 1. This is a 65-year-old female with severe right heart failure with significant vascular disease and previous stent placement. She is on end-stage renal disease, also on dialysis. 2. I have seen her in the past since 2007 for issues with anemia related to beginning of dialysis and then her being on Plavix after having cardiac stents placed either in [facility] or [facility]. Apparently, her time period being off that had run out and they decided not to keep on Eliquis secondary to the amount of transfusion she was requiring. More recently, she has not required transfusion since October of this year. Here, she has required transfusion, but it seems that some of this had to do with the manipulation of her dialysis access sites and quite a bit of bleeding. That went away along with removal of a right groin catheter. She is Hemoccult positive. She has significant risk of bleeding from portal hypertensive changes and arteriovenous malformations throughout her upper gastrointestinal tract and small bowel. 3. End-stage renal disease. 4. Previous respiratory arrest during endoscopy, at which time she almost related to her renal disease and heart failure. RECOMMENDATIONS: I would start her on a PPI and observe her. I would only intervene with endoscopy if she had acute hemorrhage. I will follow with you. Job ID: [id number]
[2020-05-06] MEDS: Apixaban 2.5 MG TAB PO SCH ×2 (08:17→21:05)
[2020-05-06] MEDS: Carvedilol 6.25 MG TAB PO SCH ×3 (08:17→21:05)
[2020-05-06] MEDS: Aspirin 81 mg Enteric Coated Tablet PO SCH (08:17)
[2020-05-06] MEDS: Atorvastatin Calcium 10 MG TAB PO SCH (08:18)
[2020-05-06] MEDS: Pantoprazole 40 MG VIAL IVP SCH ×2 (08:18→21:06)
--- NOTE | 2020-05-06 10:47 | PRG ---
DATE OF SERVICE: 05/06/2020 SUBJECTIVE: Ms. Sullivan is a 65-year-old black female with ESRD and was admitted for an acute pulmonary embolism. She was given IV heparin. In addition, she is now converted to Eliquis. No other complaints. She was also noted to have drop in her hemoglobin value to as low as 6.3. She will receive p.r.n. blood transfusion. GI has evaluated the patient. The plan is simply to observe her. No complaints of chest pain or shortness of breath. PHYSICAL EXAMINATION: VITAL SINGS: Blood pressure 113/56, heart rate 72, respiratory rate 16, temperature 98.2, and O2 saturation 95% on room air. GENERAL: Patient is awake, alert, and comfortable, not in overt distress. SKIN: Adequate turgor. HEENT: She has a slightly pale conjunctivae. Anicteric sclerae. No neck mass. No carotid bruits. No JVD. CHEST: No deformities. LUNGS: Clear breath sounds. HEART: Normal sinus rhythm. No murmurs, gallops, or rubs. ABDOMEN: Globular. Soft and nontender. No masses. EXTREMITIES: No edema. No deformities. NEUROLOGIC: Patient is awake, alert, and moving all extremities. Oriented to 3 spheres. LABORATORY DATA: Laboratories of May 06, 2020; white count 3.9, hemoglobin 8.1, sodium 136, potassium 3.8, chloride 98, carbon dioxide 27, BUN 18, creatinine 5.07, glucose 80, and calcium 8.8. MEDICATIONS: Medications of May 06, 2020, reviewed. ASSESSMENT AND PLAN: 1. End-stage renal disease, stable. No indication for any emergent hemodialysis. She is not in volume overload. Potassium is acceptable. 2. Anemia. P.r.n. blood transfusion. Holding Epogen due to the recent thromboembolic phenomenon with this patient. 3. Acute pulmonary edema. Currently, on anticoagulation. She is on Eliquis renal dose 2.5 mg p.o. b.i.d. 4. Positive stools for occult blood-GI following simple observation. No indication for an emergent upper GI endoscopy. 5. Recheck CBC and base MET in a.m. Job ID: [id number]
--- NOTE | 2020-05-06 14:26 | PRG ---
DATE OF SERVICE: 05/06/2020 SUBJECTIVE: Ms. Sullivan notes that she has had no melena or hematochezia. She is tolerating a regular diet. OBJECTIVE: VITAL SIGNS: Temperature is 97, pulse is 84, blood pressure is 96/48 to 113/56, with respirations of 16. GENERAL: She is in no distress. ABDOMEN: Soft, nontender. LUNGS: Clear. LABORATORY DATA: White count 3.9, hemoglobin 8.1, platelet count 158. Sodium 136, potassium 3.8, BUN and creatinine are 18 and 5.0. Last transfusion was 05/04. ASSESSMENT: 1. History of multiple arteriovenous malformations of the GI tract in the past. 2. History of respiratory arrest at last attempted endoscopy. 3. History of chronic transfusion requirements anytime she is placed on anticoagulation secondary to history of intestinal arteriovenous malformations. 4. Prior capsule endoscopy of the small bowel, showing some nonbleeding arteriovenous malformations in the small intestine. 5. Defibrillator secondary to severe heart failure. 6. Renal failure. 7. Cirrhosis secondary to prior hepatitis C and right heart failure and passive congestion. 8. New diagnosis of pulmonary embolus after manipulation of her dialysis graft. RECOMMENDATIONS: I would treat her for possible with anticoagulation, maintain her on PPIs, and observe. Unless she has an acute hemorrhage, would not intervene endoscopically as she is very high risk. Job ID: [id number]
--- NOTE | 2020-05-06 14:38 | PDOC.HOSPP ---
- Subjective Encounter Date: 05/06/20 Encounter Time: 10:30 Subjective: pt up in bed no complains - Objective Vital Signs & Weight: Vital Signs (12 hours) Temp Pulse Resp BP BP Pulse Ox 05/06/20 11:13 97.8 F 74 16 96/48 L 94 L 05/06/20 08:17 113/56 L 05/06/20 08:15 98.2 F 72 16 113/56 L 95 05/06/20 04:00 99.0 F 75 18 111/55 L 94 L Weight Weight 131 lb 13.383 oz I&O: 05/05/20 05/06/20 05/07/20 06:59 06:59 06:59 Intake Total 840 480 Balance 840 480 Result Diagrams: 05/06/20 04:10 05/06/20 04:10 Hospitalist ROS - Review of Systems Cardiovascular: denies: chest pain, palpitations, orthopnea, paroxysmal noc. dyspnea, edema, light headedness, other Gastrointestinal: denies: nausea, vomiting, abdominal pain, diarrhea, constipation, melena, hematochezia, other Genitourinary: denies: dysuria, frequency, incontinence, hematuria, retention, other - Medication Medications: Active Medications Generic Name Dose Route Start Last Admin Trade Name Freq PRN Reason Stop Dose Admin Acetaminophen 1,000 mg 05/01/20 17:31 05/06/20 06:12 Acetaminophen 500 Mg Tab PO 1,000 mg Q6H PRN Administration Moderate to Severe Pain (6-10) Albuterol/Ipratropium 3 ml 04/28/20 08:07 04/30/20 01:59 Ipratropium/Albuterol Sulfate 3 Ml Neb NEB 3 ml [id number] PRN Administration SOB &/or Wheezing Apixaban 2.5 mg 05/03/20 21:00 05/06/20 08:17 Apixaban 2.5 Mg Tab PO 2.5 mg BID ALONZO Administration Aspirin 81 mg 04/28/20 09:00 05/06/20 08:17 Aspirin 81 Mg Enteric Coated Tablet PO 81 mg DAILY ALONZO Administration Atorvastatin Calcium 10 mg 04/28/20 09:00 05/06/20 08:18 Atorvastatin Calcium 10 Mg Tab PO 10 mg DAILY ALONZO Administration Carvedilol 6.25 mg 04/28/20 09:00 05/06/20 08:17 Carvedilol 6.25 Mg Tab PO 6.25 mg TID ALONZO Administration Menthol/Methyl Salicylate 1 gm 05/04/20 16:19 05/05/20 09:18 Methyl Salicylate/Menthol 85 Gm Tube TOP 1 gm QID PRN Administration Pain Nitroglycerin 0.4 mg 04/30/20 01:43 04/30/20 02:05 Nitroglycerin 0.4 Mg Tab (25 Tab Bottle) SL 0.4 mg Q5MIN PRN Administration Chest Pain Pantoprazole Sodium 40 mg 05/05/20 21:00 05/06/20 08:18 Pantoprazole 40 Mg Vial IVP 40 mg Q12HR ALONZO Administration Sodium Chloride 10 ml 05/01/20 21:00 05/06/20 08:55 Flush - Normal Saline 10 Ml Syringe IVF 10 ml Q12HR ALONZO Administration Tramadol HCl 50 mg 05/02/20 10:49 05/05/20 17:41 Tramadol Hcl 50 Mg Tab PO 50 mg Q12H PRN Administration Moderate Pain (4-6) - Exam Heart: negative: RRR, no murmur, no gallops, no rubs, normal peripheral pulses, irregular, diminshed peripheral pulses, murmur present, II/IV, III/IV Respiratory: negative: CTAB, no wheezes, no rales, no ronchi, normal chest expansion, no tachypnea, normal percussion, rales, rhonchi, tachypneic, wheezes Gastrointestinal: negative: soft, non-tender, non-distended, normal bowel sounds, no palpable masses, no hepatomegaly, no splenomegaly, no bruit, no guarding, no rigidity, tender to palpation, distended, diminished bowl sounds, voluntary guarding Extremities: 1+ LE edema Hosp A/P (1) Acute exacerbation of CHF (congestive heart failure) Code(s): I50.9 - HEART FAILURE, UNSPECIFIED Status: Acute Qualifiers: Heart failure type: systolic Qualified Code(s): I50.23 - Acute on chronic systolic (congestive) heart failure (2) Symptomatic anemia Code(s): D64.9 - ANEMIA, UNSPECIFIED Status: Acute (3) Anemia of renal disease Code(s): D63.1 - ANEMIA IN CHRONIC KIDNEY DISEASE Status: Chronic (4) ESRD (end stage renal disease) Code(s): N18.6 - END STAGE RENAL DISEASE Status: Chronic (5) HTN (hypertension) Code(s): I10 - ESSENTIAL (PRIMARY) HYPERTENSION Status: Chronic Qualifiers: Hypertension type: essential hypertension Qualified Code(s): I10 - Essential (primary) hypertension (6) Moderate tricuspid insufficiency Code(s): I07.1 - RHEUMATIC TRICUSPID INSUFFICIENCY Status: Chronic (7) Pulmonary emboli Code(s): I26.99 - OTHER PULMONARY EMBOLISM WITHOUT ACUTE COR PULMONALE Status: Acute (8) UTI (urinary tract infection) Status: Acute - Plan Patient is a 65-year-old female who initially presented to the hospital with complaints of shortness of breath. Patient is on end-stage renal disease on dialysis. Patient also had abdominal pain and left lower extremity pain. Patient had a CTA done in the ER which indicated a right pulmonary embolism. Pa tient CTA indicated nearly occlusive pulmonary embolism involving the segmental pulmonary artery. Patient's AV fistula is nonfunctional and she underwent a placement of a cuffed hemodialysis catheter. Patient spiked a fever of 100.7 after dialysis. At this time her urine indicated positive nitrates. Patient was initially treated with IV Bactrim given her severe penicillin allergy. Patient had an echocardiogram which indicated an EF of 20 to 25% with severe mitral regurgitation. He also has severe tricuspid regurgitation. 05/05 patient received a dose of cefepime on November 01. Given patient's anxieties will start patient on cefepime for UTI given that she had a fever of 100.7 and her urine was positive for nitrites. GI to see patient in terms of anemia. We will continue Eliquis for now. Patient has been transfused with 38 units of PRBCs over the course of patient's admissions. 05/06 continue cefepime from now for her UTI. We will continue the Eliquis for PE. GI has been consulted. Her fecal occult was positive.
[2020-05-06 14:40] LABS: Platelet Count 151 thou/uL (130-400)
[2020-05-06] MEDS: Cefepime 0.5 GM, Admixture Fee 1 EACH in Sodium Chloride 0.9% 100 ML IVPB SCH (18:15)
[2020-05-07 06:01] LABS: #Eosinphils 0.1 thou/uL (0.0-0.7); #Lymphocytes 0.5 thou/uL (1.20-3.40); #Monocytes 0.5 thou/uL (0.11-0.59); #Neutrophils 2.9 thou/uL (1.40-6.50); %Basophils 0.5 % (0.0-1.0); %Eosinophils 2.9 % (0.0-10.0); %Lymphocytes 13.1 % (21.0-51.0); %Monocytes 12.4 % (0.0-10.0); %Neutrophils 71.1 % (42.0-75.0); Hemoglobin 8.1 g/dL (12.0-16.0); Mean Corpuscular HGB CONC 32.6 g/dL (32.0-36.0); Mean Corpuscular Hemoglobin 31.9 pg (27.0-31.0); Mean Platelet Volume 7.3 fL (7.4-10.4); Platelet Count 157 thou/uL (130-400); RBC Distribution Width 17.8 % (11.5-14.5); Red Blood Cell (RBC) Count 2.53 mill/uL (4.20-5.40); White Blood Cell (WBC) Count 4.1 thou/uL (4.8-10.8)
[2020-05-07 06:19] LABS: Anion Gap 16 mmol/L (10-20); BUN (Urea Nitrogen) 28 mg/dL (9.8-20.1); Calc. Creatinine Clearance 8 mL/min (70-130); Calcium 8.9 mg/dL (7.8-10.44); Carbon Dioxide 26 mmol/L (23-31); Chloride 100 mmol/L (98-107); Estimated GFR-MDRD 7; Glucose 74 mg/dL (80-115); Potassium 4.2 mmol/L (3.5-5.1); Sodium 138 mmol/L (136-145)
--- NOTE | 2020-05-07 09:30 | PRG ---
DATE OF SERVICE: 05/07/2020 SUBJECTIVE: Ms. Sullivan is a 65-year-old black female with ESRD and was initially admitted for acute shortness of breath. She was found to have pulmonary embolism. She has been started on Eliquis. She voices no new complaints today. Denies any chest pain or shortness of breath. The patient has also been seen by GI for her chronic anemia. The plan is simply to observe her from a GI point of view. She is currently undergoing hemodialysis today. OBJECTIVE: VITAL SIGNS: Blood pressure 128/57, heart rate 76, respiratory rate 18, temperature 98.5, and O2 saturation 95%. GENERAL: The patient is awake, alert, and comfortable, not in overt distress. SKIN: Adequate turgor. HEENT: She has a slightly pale conjunctivae. Anicteric sclerae. NECK: No neck mass. No carotid bruits. No JVD. CHEST: No deformities. LUNGS: Clear breath sounds. No wheezing. No crackles. HEART: Normal sinus rhythm. No murmurs. No gallops. No rubs. ABDOMEN: Globular, soft, and nontender. No masses. EXTREMITIES: No edema. No deformities. MEDICATIONS: Medications of May 07, 2020, reviewed. LABORATORY DATA: Laboratories of May 07, 2020, white count 4.1 and hemoglobin 8.1. Sodium 138, potassium 4.2, chloride 100, carbon dioxide 26, BUN 28, creatinine 6.77, glucose 74, and calcium 8.9. ASSESSMENT AND PLAN: 1. End-stage renal disease, stable. We will continue current Thursday, Thursday, and Thursday hemodialysis regimen. Fluid removal only as tolerated. 2. Anemia, stable. Continue holding off Epogen until next week. Holding off Epogen due to the recent thromboembolic phenomenon with this patient. 3. Acute pulmonary embolism - currently on Eliquis. 4. Agree with current management. Recheck CBC and basic metabolic in a.m. Job ID: [id number]
[2020-05-07] MEDS: Atorvastatin Calcium 10 MG TAB PO SCH (11:56)
[2020-05-07] MEDS: Apixaban 2.5 MG TAB PO SCH ×2 (11:56→20:48)
[2020-05-07] MEDS: Aspirin 81 mg Enteric Coated Tablet PO SCH (11:56)
[2020-05-07] MEDS: Pantoprazole 40 MG VIAL IVP SCH ×2 (11:56→20:50)
[2020-05-07] MEDS: Carvedilol 6.25 MG TAB PO SCH ×3 (11:56→20:49)
--- NOTE | 2020-05-07 14:54 | PRG ---
DATE OF SERVICE: 05/07/2020 SUBJECTIVE: Ms. Sullivan is doing well. She is eating regular diet. She has had no bleeding. OBJECTIVE: VITAL SIGNS: Temperature 98, pulse 76, blood pressure 127/51. ABDOMEN: Soft, nontender. No rebound or guarding. LABORATORY DATA: Hemoglobin is stable at 8.1. ASSESSMENT: 1. Hemoccult-positive stool. 2. Chronic anemia, multifactorial. There is definite component of GI blood loss when she is on anticoagulation as noted in her initial H and P. Unfortunately, she has had a pulmonary embolus related to declotting her surgical shunt for dialysis. It is small, so hopefully she will need to be on long-term anticoagulation unless there is acute gastrointestinal bleeding. We did support with transfusion as needed. Continue PPIs. She is at her last upper endoscopy. She had respiratory arrest related to her severe heart disease and renal failure and I would not recommend embarking on invasive procedures with her with endoscopy unless there is acute overt bleeding, we are trying to control. 3. Would also recommend continuing PPI therapy. At this time, we will follow from a distance. If there are any signs of acute GI hemorrhage, please do not hesitate to re-consult. Job ID: [id number]
[2020-05-07] MEDS: Cefepime 0.5 GM, Admixture Fee 1 EACH in Sodium Chloride 0.9% 100 ML IVPB SCH (18:32)
[2020-05-08 07:08] LABS: Anion Gap 15 mmol/L (10-20); BUN (Urea Nitrogen) 16 mg/dL (9.8-20.1); Calc. Creatinine Clearance 11 mL/min (70-130); Calcium 9.1 mg/dL (7.8-10.44); Carbon Dioxide 26 mmol/L (23-31); Chloride 101 mmol/L (98-107); Estimated GFR-MDRD 11; Glucose 79 mg/dL (80-115); Potassium 3.8 mmol/L (3.5-5.1); Sodium 138 mmol/L (136-145)
[2020-05-08 07:11] LABS: Hemoglobin 8.7 g/dL (12.0-16.0); Mean Corpuscular HGB CONC 33.3 g/dL (32.0-36.0); Mean Corpuscular Hemoglobin 32.5 pg (27.0-31.0); Mean Corpuscular Volume 97.8 fL (78.0-98.0); Mean Platelet Volume 7.3 fL (7.4-10.4); Platelet Count 180 thou/uL (130-400); RBC Distribution Width 17.4 % (11.5-14.5); Red Blood Cell (RBC) Count 2.67 mill/uL (4.20-5.40); White Blood Cell (WBC) Count 4.5 thou/uL (4.8-10.8)
[2020-05-08] MEDS: Atorvastatin Calcium 10 MG TAB PO SCH (08:19)
[2020-05-08] MEDS: Apixaban 2.5 MG TAB PO SCH (08:19)
[2020-05-08] MEDS: Carvedilol 6.25 MG TAB PO SCH (08:19)
[2020-05-08] MEDS: Aspirin 81 mg Enteric Coated Tablet PO SCH (08:19)
[2020-05-08] MEDS: Pantoprazole 40 MG VIAL IVP SCH (08:20)
[2020-05-08 08:56] LABS: Anisocytosis SLIGHT = 6-15 cells (100X) (0-5/hpf); Band 3 % (5-11); Eosinophils 1 % (0-10); Hypochromia SLIGHT = 6-15 cells (100X) (0-5/hpf); Lymphocytes 20 % (21-51); MDiff Complete? YES; Metamyelocyte 1 % (0-0); Monocytes 16 % (0-10); Neutrophil 59 % (42-75); Platelet Morphology Comment Appears Adequate; Polychromasia SLIGHT = 2-3 cells (100X) (0-2/hpf)
[2020-05-08 14:10] LABS: Platelet Count 172 thou/uL (130-400)
[2020-05-08 15:09] VITALS: BMI 24.3
[2020-05-08 17:05] VITALS: BP 129/62; TEMP 98
== END 2020-05-08 15:17 | disposition home or self-care (01) | DRG 314 ==
LOC: ERS 11:51 → 2NO 17:23 → T4-A 05-06 16:47
PROVIDERS: ADMIT Student in an Organized Health Care Education/Training Program; ATTEND Student in an Organized Health Care Education/Training Program
PROC: 06HY33Z Insertion of Infusion Device into Lower Vein, Percutaneous Approach (ICD-10-PCS; 2020-04-28)
PROC: 5A1D70Z Performance of Urinary Filtration, Intermittent, Less than 6 Hours Per Day (ICD-10-PCS; 2020-04-28)
PROC: 5A1D70Z Performance of Urinary Filtration, Intermittent, Less than 6 Hours Per Day (ICD-10-PCS; 2020-04-30)
PROC: 02H633Z Insertion of Infusion Device into Right Atrium, Percutaneous Approach (ICD-10-PCS; principal; 2020-05-02)
PROC: 0JH63XZ Insertion of Tunneled Vascular Access Device into Chest Subcutaneous Tissue and Fascia, Percutaneous Approach (ICD-10-PCS; 2020-05-02)
PROC: 05H533Z Insertion of Infusion Device into Right Subclavian Vein, Percutaneous Approach (ICD-10-PCS; 2020-05-02)
PROC: B546ZZA Ultrasonography of Right Subclavian Vein, Guidance (ICD-10-PCS; 2020-05-02)
PROC: 5A1D70Z Performance of Urinary Filtration, Intermittent, Less than 6 Hours Per Day (ICD-10-PCS; 2020-05-02)
PROC: 5A1D70Z Performance of Urinary Filtration, Intermittent, Less than 6 Hours Per Day (ICD-10-PCS; 2020-05-04)
PROC: 5A1D70Z Performance of Urinary Filtration, Intermittent, Less than 6 Hours Per Day (ICD-10-PCS; 2020-05-07)
DX: T82.868A Thrombosis due to vascular prosthetic devices, implants and grafts, initial encounter (principal); N18.6 End stage renal disease; I50.23 Acute on chronic systolic (congestive) heart failure; I26.99 Other pulmonary embolism without acute cor pulmonale; I13.2 Hypertensive heart and chronic kidney disease with heart failure and with stage 5 chronic kidney disease, or end stage renal disease; N39.0 Urinary tract infection, site not specified; I25.10 Atherosclerotic heart disease of native coronary artery without angina pectoris; D64.9 Anemia, unspecified; F17.210 Nicotine dependence, cigarettes, uncomplicated; R77.8 Other specified abnormalities of plasma proteins; J44.9 Chronic obstructive pulmonary disease, unspecified; I25.5 Ischemic cardiomyopathy; J45.909 Unspecified asthma, uncomplicated; I07.1 Rheumatic tricuspid insufficiency; D63.1 Anemia in chronic kidney disease; D69.6 Thrombocytopenia, unspecified; K74.60 Unspecified cirrhosis of liver; Z99.2 Dependence on renal dialysis; Z88.0 Allergy status to penicillin; Z90.49 Acquired absence of other specified parts of digestive tract; Z95.0 Presence of cardiac pacemaker; Z79.82 Long term (current) use of aspirin; Z79.899 Other long term (current) drug therapy; Z79.51 Long term (current) use of inhaled steroids; Z20.828 Contact with and (suspected) exposure to other viral communicable diseases
CPT/HCPCS: 36415; 36430; 51701; 71045; 71275; 74176; 80048; 80053; 81001; 81003; 81015; 82274; 82553; 83690; 83735; 83880; 84484; 85014; 85018; 85025; 85049; 85730; 86850; 86900; 86901; 87040; 87077; 87086; 87186; 87340; 87635; 90935; 93005; 93010; 93306; 93970; 94640; 94664; 96372; 96374; 96375; C1751; C1752; C9113; G0257; J0692; J1200; J1642; J1644; J1956; J2250; J2270; J2405; J2720; J2930; J3010; J3490; J7070; J7611; J7620; P9016; Q0162; Q9967; S0028; U0003

== ENCOUNTER 2020-05-15 02:14 | Inpatient (IN) | payer MEDICARE, OTHER ==
[2020-05-15 03:32] LABS: Hemoglobin 6.1 g/dL (12.0-16.0); Mean Corpuscular HGB CONC 32.7 g/dL (32.0-36.0); Mean Corpuscular Hemoglobin 33.9 pg (27.0-31.0); Mean Platelet Volume 7.6 fL (7.4-10.4); Platelet Count 252 thou/uL (130-400); RBC Distribution Width 20.9 % (11.5-14.5); White Blood Cell (WBC) Count 7.6 thou/uL (4.8-10.8)
[2020-05-15 03:51] LABS: #Eosinphils 0.1 thou/uL (0.0-0.7); #Lymphocytes 1.5 thou/uL (1.20-3.40); #Monocytes 0.7 thou/uL (0.11-0.59); #Neutrophils 5.2 thou/uL (1.40-6.50); %Basophils 0.4 % (0.0-1.0); %Eosinophils 1.4 % (0.0-10.0); %Lymphocytes 20.2 % (21.0-51.0); %Monocytes 9.4 % (0.0-10.0); %Neutrophils 68.7 % (42.0-75.0); Anisocytosis SLIGHT = 6-15 cells (100X) (0-5/hpf); MDiff Complete? YES; Macrocytosis SLIGHT = 6-15 cells (100X) (0-5/hpf); Polychromasia SLIGHT = 2-3 cells (100X) (0-2/hpf)
[2020-05-15 04:09] LABS: ALT (SGPT) 11 U/L (8-55); AST (SGOT) 30 U/L (5-34); Albumin 2.9 g/dL (3.4-4.8); Alkaline Phosphatase 83 U/L (40-110); Anion Gap 26 mmol/L (10-20); BUN (Urea Nitrogen) 46 mg/dL (9.8-20.1); Bilirubin, Total 0.4 mg/dL (0.2-1.2); Calc. Creatinine Clearance 0 mL/min (70-130); Calcium 10.2 mg/dL (7.8-10.44); Carbon Dioxide 21 mmol/L (23-31); Chloride 98 mmol/L (98-107); Estimated GFR-MDRD 10; Globulin 2.8 g/dL (2.4-3.5); Glucose 120 mg/dL (80-115); Lipase 40 U/L (8-78); Magnesium 2.2 mg/dL (1.6-2.6); Protein, Total 5.7 g/dL (6.0-8.3); Sodium 141 mmol/L (136-145)
[2020-05-15 04:23] LABS: Bilirubin Negative (Negative); Blood, Urine Trace (Negative); Glucose, Urine (Dipstick) Negative (Negative); Ketone, Urine Negative (Negative); Leukocyte Trace (Negative); Nitrite Negative (Negative); Protein, Urine (Dipstick) 100 mg/dL (Neg-Trace); Specific Gravity, Urine 1.015 (1.005-1.030); Urobilinogen 0.2 mg/dL (Less than 2)
[2020-05-15 04:29] LABS: Clarity Clear (Clear)
[2020-05-15 04:32] LABS: Other Microscopic Description Less than 2 mL rec'd
[2020-05-15 04:34] LABS: RBC/HPF 0-3 HPF (0-3); Squamous Epithelial 0-3 HPF (0-3); WBC/HPF 0-3 HPF (0-3)
[2020-05-15 04:35] LABS: Bacteria/HPF Rare-Few HPF (None Seen); Transitional Epithelial 0-3 HPF (None Seen)
[2020-05-15 04:41] LABS: CKMB 3.7 ng/mL (0-6.6)
--- NOTE | 2020-05-15 04:48 | PDOC.HHP ---
Hospitalist HPI - History of Present Illness Shortness of breath, bilateral leg pain. History of Present Illness: 65-year-old woman with a history of end-stage renal disease on hemodialysis, chronic bilateral leg pain, recent diagnosis of acute pulmonary embolism on anticoagulation presented to the emergency department with a complaint of increased bilateral leg pain and worsening shortness of breath. She is on hemodialysis on Thursday and Thursday. She was discharged from hospitalization last week. Patient was on Eliquis for acute segmental pulmonary embolism. According to report patient was transfused multiple times for acute symptomatic anemia. She reported blood in her stool. Her hemoglobin in the emergency department noted to be 6.1 to predischarge value of 8. Patient is admitted for further management of symptomatic anemia. Hospitalist ROS - Review of Systems Other: Except as documented all other systems reviewed and negative. - Medication Medications: Medication Instructions Recorded Confirmed Type Acetaminophen [Tylenol] 650 mg PO Q6H PRN 02/04/18 04/28/20 History Atorvastatin Calcium [Lipitor] 10 mg PO DAILY 07/24/18 04/28/20 History Aspirin [Aspirin EC] 81 mg PO DAILY 08/22/18 04/28/20 History Carvedilol [Coreg] 6.25 mg PO TID 11/07/18 04/28/20 History Midodrine HCl 5 mg PO HS 11/07/18 04/28/20 History Apixaban [Eliquis] 2.5 mg PO BID #60 tab 05/08/20 Rx Pantoprazole [Protonix] 40 mg PO BID #60 tab 05/08/20 Rx Hospitalist History - Past Medical History Other Medical History: End-stage renal disease on hemodialysis, hypertension, peripheral vascular disea se, chronic leukopenia, thrombocytopenia, chronic systolic heart failure with an EF of 20 to 25%. - Past Surgical History Other Surgical History: AICD, cardiac stent, carotid endarterectomy, cholecystectomy - Family History Family History: reports: cancer (Mother) - Social History Smoking Status: Current every day smoker Alcohol: reports: Occassional Drugs: reports: none Living Situation: Alone - Exam General Appearance: NAD, awake alert, ill appearing Eye: PERRL, anicteric sclera ENT: normocephalic atraumatic, no oropharyngeal lesions, moist mucosa Neck: supple, symmetric, no JVD, no thyromegaly Heart: RRR, no murmur, no gallops Respiratory: no wheezes, rales (Bibasilar crackles) Gastrointestinal: soft, non-tender, non-distended, normal bowel sounds Extremities: no cyanosis, no edema Skin: normal turgor, no rashes Neurological: cranial nerve grossly intact, no weakness, no focal deficits Musculoskeletal: normal tone, normal strength Psychiatric: normal affect, normal behavior, A&O x 3 Hospitalist Results - Labs Result Diagrams: 05/15/20 03:14 05/15/20 03:14 Lab results: WBC 7.6 thou/uL (4.8-10.8) 05/15/20 03:14 Hgb 6.1 g/dL (12.0-16.0) L 05/15/20 03:14 Hct 18.7 % (36.0-47.0) L 05/15/20 03:14 MCV 104.0 fL (78.0-98.0) H 05/15/20 03:14 Plt Count 252 thou/uL (130-400) 05/15/20 03:14 Neutrophils % 68.7 % (42.0-75.0) 05/15/20 03:14 Sodium 141 mmol/L (136-145) 05/15/20 03:14 Potassium 4.0 mmol/L (3.5-5.1) 05/15/20 03:14 Chloride 98 mmol/L (98-107) 05/15/20 03:14 Carbon Dioxide 21 mmol/L (23-31) L 05/15/20 03:14 BUN 46 mg/dL (9.8-20.1) H 05/15/20 03:14 Creatinine 5.44 mg/dL (0.6-1.1) H 05/15/20 03:14 Glucose 120 mg/dL (80-115) H 05/15/20 03:14 Lactic Acid 11.8 mmol/L (0.5-2.2) H* 05/15/20 03:14 Calcium 10.2 mg/dL (7.8-10.44) 05/15/20 03:14 Total Bilirubin 0.4 mg/dL (0.2-1.2) 05/15/20 03:14 AST 30 U/L (5-34) 05/15/20 03:14 ALT 11 U/L (8-55) 05/15/20 03:14 Alkaline Phosphatase 83 U/L (40-110) 05/15/20 03:14 CK-MB (CK-2) 3.7 ng/mL (0-6.6) 05/15/20 03:14 Troponin I 0.311 ng/mL (< 0.028) H* 05/15/20 03:14 Serum Total Protein 5.7 g/dL (6.0-8.3) L 05/15/20 03:14 Albumin 2.9 g/dL (3.4-4.8) L 05/15/20 03:14 Lipase 40 U/L (8-78) 05/15/20 03:14 Urine Ketones Negative mg/dL (Negative) 05/15/20 04:00 Urine Blood Trace (Negative) 05/15/20 04:00 Urine Nitrite Negative (Negative) 05/15/20 04:00 Ur Leukocyte Esterase Trace (Negative) H 05/15/20 04:00 Urine RBC 0-3 HPF (0-3) 05/15/20 04:00 Urine WBC 0-3 HPF (0-3) 05/15/20 04:00 Ur Squamous Epith Cells 0-3 HPF (0-3) 05/15/20 04:00 Urine Bacteria Rare-Few HPF (None Seen) 05/15/20 04:00 - EKG Interpretation EKG: Sinus rhythm. Hospitalist H&P A/P - Problem (1) Anemia due to acute blood loss Code(s): D62 - ACUTE POSTHEMORRHAGIC ANEMIA Status: Acute (2) Anemia of renal disease Code(s): D63.1 - ANEMIA IN CHRONIC KIDNEY DISEASE Status: Chronic (3) ESRD (end stage renal disease) on dialysis Code(s): N18.6 - END STAGE RENAL DISEASE; Z99.2 - DEPENDENCE ON RENAL DIALYSIS Status: Chronic (4) HTN (hypertension) Code(s): I10 - ESSENTIAL (PRIMARY) HYPERTENSION Status: Chronic Qualifiers: Hypertension type: essential hypertension Qualified Code(s): I10 - Essential (primary) hypertension (5) PVD (peripheral vascular disease) Code(s): I73.9 - PERIPHERAL VASCULAR DISEASE, UNSPECIFIED Status: Chronic (6) GI bleed Code(s): K92.2 - GASTROINTESTINAL HEMORRHAGE, UNSPECIFIED Status: Acute - Plan Plan: Patient with a history of GI bleed on anticoagulation for pulmonary embolism presenting with symptomatic anemia. History of multiple transfusions. Admitted to ICU. Transfuse 2 units PRBC Monitor H&H every 8 hours. Difficult decision regarding GI bleed and anticoagulation for pulmonary embolism. Will hold Eliquis for now. Will consult GI to reevaluate. Consult nephrology for hemodialysis Obtain arterial Doppler of bilateral lower extremities given complaining of worsening bilateral leg pain. Patient is on Midodrine at bedtime. We will start vasopressors until blood pressure stable.
[2020-05-15] MEDS ORDERED: Norepinephrine 8 MG/0.9% NS 250 ML ONE (06:25)
[2020-05-15 06:44] LABS: Hemoglobin 5.5 g/dL (12.0-16.0); Mean Corpuscular HGB CONC 32.2 g/dL (32.0-36.0); Mean Corpuscular Hemoglobin 32.1 pg (27.0-31.0); Mean Corpuscular Volume 99.6 fL (78.0-98.0); Mean Platelet Volume 7.6 fL (7.4-10.4); Platelet Count 200 thou/uL (130-400); RBC Distribution Width 23.2 % (11.5-14.5); Red Blood Cell (RBC) Count 1.71 mill/uL (4.20-5.40); White Blood Cell (WBC) Count 6.7 thou/uL (4.8-10.8)
[2020-05-15 06:48] LABS: Anion Gap 18 mmol/L (10-20); BUN (Urea Nitrogen) 48 mg/dL (9.8-20.1); Calc. Creatinine Clearance 0 mL/min (70-130); Calcium 9.4 mg/dL (7.8-10.44); Carbon Dioxide 26 mmol/L (23-31); Chloride 100 mmol/L (98-107); Estimated GFR-MDRD 10; Glucose 101 mg/dL (80-115); Lactic Acid 3.3 mmol/L (0.5-2.2); Potassium 3.5 mmol/L (3.5-5.1); Sodium 140 mmol/L (136-145)
[2020-05-15 06:53] LABS: #Eosinphils 0.1 thou/uL (0.0-0.7); #Lymphocytes 1.3 thou/uL (1.20-3.40); #Monocytes 0.8 thou/uL (0.11-0.59); #Neutrophils 4.5 thou/uL (1.40-6.50); %Basophils 0.5 % (0.0-1.0); %Eosinophils 1.6 % (0.0-10.0); %Lymphocytes 19.2 % (21.0-51.0); %Monocytes 11.6 % (0.0-10.0); %Neutrophils 67.2 % (42.0-75.0); Anisocytosis SLIGHT = 6-15 cells (100X) (0-5/hpf); MDiff Complete? YES; Macrocytosis SLIGHT = 6-15 cells (100X) (0-5/hpf); Polychromasia SLIGHT = 2-3 cells (100X) (0-2/hpf)
[2020-05-15] MEDS ORDERED: Ondansetron PF 4 MG/2 ML Vial IVP PRN (07:30)
[2020-05-15] MEDS ORDERED: Ondansetron ODT 4 MG TAB SL PRN (07:30)
[2020-05-15] MEDS ORDERED: Acetaminophen 325 MG TAB PO PRN ×2 (07:30→10:46)
[2020-05-15] MEDS ORDERED: Norepinephrine 8 MG/0.9% NS 250 ML IVPB PRN (07:30)
[2020-05-15] MEDS ORDERED: Electrolyte Replacement Protoc 1 EACH EACH IVPB ONE (07:30)
[2020-05-15 07:57] VITALS: BMI 22.0
--- NOTE | 2020-05-15 08:06 | RAD ---
RIGHT HIP 2 VIEWS: HISTORY: Hip pain. FINDINGS: No evidence of fracture. No osseous abnormality. IMPRESSION: No acute finding. POS: AGW
--- NOTE | 2020-05-15 08:11 | RAD ---
AP PELVIS: INDICATION: Pain. FINDINGS: Bony pelvis appears intact. Both hips appear intact. No osseous abnormality identified. Prominent arterial calcification is noted. IMPRESSION: No acute process identified. POS: AGW
--- NOTE | 2020-05-15 09:09 | RAD ---
LEFT HIP 2 VIEWS: HISTORY: Pain. COMPARISON: None. FINDINGS: No acute displaced fracture or malalignment. High-grade vascular calcifications. Phleboliths in the pelvis. IMPRESSION: No acute osseous abnormality. POS: OFF
--- NOTE | 2020-05-15 10:00 | ULT ---
EXAM: US Arterial Doppler Lower Ext PROVIDED CLINICAL HISTORY: Bilateral lower extremity pain. COMPARISON: None FINDINGS: Grayscale, color-flow, Doppler evaluation, and spectral analysis of the bilateral lower extremity art erial vessels is performed with 2-D imaging. Calcified atherosclerotic plaque is seen within the arterial vessels of the bilateral lower extremiti es. The right lower extremity profunda femoral and proximal superficial femoral arteries are unable to be visualized due to overlying dressing material and bandages. There are monophasic waveforms with spectral broadening seen throughout the bilateral lower extremity arterial vessels suggesting diffuse atherosclerotic vascular disease. There is an elevated peak systolic velocity seen within the left lower extremity common femoral as well as profunda femoral art pilar suggesting more significant stenosis at these levels. There is also asymmetrically diminished peak systolic velocity in the mid right superficial femoral artery which may represent a more proxima l narrowing in the proximal right lower extremity superficial femoral artery. IMPRESSION: 1. Monophasic waveforms with spectral broadening of the arterial waveforms throughout the bilateral l ower extremities suggesting significant atherosclerotic vascular disease. Asymmetrically increased peak systolic velocities are seen in the left lower extremity common femoral and profunda femoral art eries suggesting more focal significant stenoses at these levels. 2. Asymmetric diminished peak systolic velocity in the mid right superficial femoral artery compared to the left lower extremity which could be related to more proximal stenosis in the proximal right superficial femoral artery. The proximal right superficial femoral artery is unable to be visualized due to overlying dressing material.
--- NOTE | 2020-05-15 10:30 | PRG ---
DATE OF SERVICE: 05/15/2020 SERVICE: Renal Medicine. SUBJECTIVE: Ms. Sullivan is a 65-year-old black female with ESRD and was admitted for symptomatic anemia. She has also history of chronic anemia and chronic GI bleed, which she has underlying AV malformation, which has been cauterized several times. We will be re-consulting GI for a possible upper GI endoscopy. Of note, the patient recently had a pulmonary embolism and she was started on Eliquis 2.5 mg p.o. b.i.d. It is now currently on hold. OBJECTIVE: VITAL SIGNS: Blood pressure is currently at 141/59, heart rate is 100, temperature 97.7, O2 saturation 100%. GENERAL: The patient is awake, comfortable, but somewhat lethargic. SKIN: Adequate turgor. HEENT: Pale conjunctivae. Anicteric sclerae. NECK: No neck mass. No carotid bruits. No JVD. CHEST: No deformities. LUNGS: Clear breath sounds. No wheezing. No crackles. HEART: Normal sinus rhythm. No murmur. No gallops. No rubs. ABDOMEN: Globular, soft, nontender. No masses. EXTREMITIES: No edema. No deformities. MEDICATIONS: Medications of May 15, 2020 were reviewed. LABORATORY DATA: Laboratories of May 15, 2020; white count 6.7, hemoglobin 5.5. Sodium 140, potassium 3.5, chloride 100, carbon dioxide 26, BUN 48, creatinine 5.17, glucose 101, calcium 9.4. Troponin I 0.311. ASSESSMENT AND PLAN: 1. Symptomatic anemia, rule out gastrointestinal bleed. Consider GI consult. We will transfuse 2 units of packed RBC and continue transfusing until we can achieve an acceptable hemoglobin - of at least 9. 2. Status post pulmonary embolism. We will hold off Eliquis. She seems not to be tolerating the Eliquis. 3. End-stage renal failure - no indication for any emergent hemodialysis. I will schedule her back tomorrow for her regular Thursday, Thursday, and Thursday hemodialysis regimen. Our plan is to use heparin-free hemodialysis with this patient. 4. Recheck CBC and basic metabolic panel in a.m. ADDENDUM: I did discuss the case with her daughter, Esther Ramirez. I updated her what is happening with her mother. Job ID: [id number]
--- NOTE | 2020-05-15 10:31 | PDOC.HOSPP ---
- Subjective Encounter Date: 05/15/20 Encounter Time: 09:20 Subjective: Patient seen and examined bedside today, patient is receiving blood transfusion, patient does not have any chest pain or shortness of breath, - Objective Vital Signs & Weight: Vital Signs (12 hours) Temp Pulse Pulse Resp BP BP Pulse Ox 05/15/20 07:48 97.7 F 83 21 H 141/59 H 100 05/15/20 07:40 100 05/15/20 07:33 98.2 F 83 22 H 117/63 100 05/15/20 07:05 98.2 F 85 17 98/58 L 100 Weight Weight 120 lb 9.486 oz Most Recent Monitor Data Heart Rate from ECG 82 NIBP 126/57 NIBP BP-Mean 80 Respiration from ECG 31 SpO2 100 I&O: 05/14/20 05/15/20 05/16/20 06:59 06:59 06:59 Intake Total 0 Balance 0 Result Diagrams: 05/15/20 06:16 05/15/20 06:16 Radiology Reviewed by me: Yes EKG Reviewed by me: Yes Hospitalist ROS - Review of Systems Constitutional: reports: weakness, malaise. denies: fever, chills, sweats, other ENT: denies: ear pain, ear discharge, nose pain, nose discharge, nose congestion, mouth pain, mouth swelling, throat pain, throat swelling, other Respiratory: reports: SOB with excertion. denies: cough, dry, shortness of breath, hemoptysis, pleuritic pain, sputum, wheezing, other Cardiovascular: denies: chest pain, palpitations, orthopnea, paroxysmal noc. dyspnea, edema, light headedness, other Gastrointestinal: denies: nausea, vomiting, abdominal pain, diarrhea, constipation, melena, hematochezia, other Genitourinary: denies: dysuria, frequency, incontinence, hematuria, retention, other Musculoskeletal: reports: leg pain. denies: neck pain, shoulder pain, arm pain, back pain, hand pain, foot pain, other - Exam General Appearance: NAD, ill appearing Eye: PERRL, anicteric sclera ENT: normocephalic atraumatic, no oropharyngeal lesions Neck: supple, symmetric, no JVD Heart: RRR, no gallops, no rubs, murmur present Respiratory: no wheezes, no rales, no ronchi Gastrointestinal: soft, non-tender, non-distended, normal bowel sounds Extremities: no cyanosis, no clubbing Skin: normal turgor, no lesions Neurological: no new deficit Musculoskeletal: normal tone, normal strength Psychiatric: normal affect, normal behavior Hosp A/P (1) GI bleed Code(s): K92.2 - GASTROINTESTINAL HEMORRHAGE, UNSPECIFIED Status: Acute Qualifiers: GI bleed type/associated pathology: unspecified gastrointestinal hemorrhage type Qualified Code(s): K92.2 - Gastrointestinal hemorrhage, unspecified (2) Anemia due to acute blood loss Code(s): D62 - ACUTE POSTHEMORRHAGIC ANEMIA Status: Acute (3) Symptomatic anemia Code(s): D64.9 - ANEMIA, UNSPECIFIED Status: Acute (4) Anemia of renal disease Code(s): D63.1 - ANEMIA IN CHRONIC KIDNEY DISEASE Status: Chronic (5) CAD (coronary artery disease) Code(s): I25.10 - ATHSCL HEART DISEASE OF [place] CORONARY ARTERY W/O ANG PCTRS Status: Chronic Qualifiers: Coronary Disease-Associated Artery/Lesion type: [place] artery [place] vs. transplanted heart: [place] heart Associated angina: without angina Qualified Code(s): I25.10 - Atherosclerotic heart disease of [place] coronary artery without angina pectoris (6) COPD (chronic obstructive pulmonary disease) Status: Chronic Qualifiers: COPD type: chronic bronchitis (7) Dyslipidemia Code(s): E78.5 - HYPERLIPIDEMIA, UNSPECIFIED Status: Chronic (8) ESRD (end stage renal disease) on dialysis Code(s): N18.6 - END STAGE RENAL DISEASE; Z99.2 - DEPENDENCE ON RENAL DIALYSIS Status: Chronic (9) HTN (hypertension) Code(s): I10 - ESSENTIAL (PRIMARY) HYPERTENSION Status: Chronic Qualifiers: Hypertension type: essential hypertension Qualified Code(s): I10 - Essential (primary) hypertension (10) Moderate tricuspid insufficiency Code(s): I07.1 - RHEUMATIC TRICUSPID INSUFFICIENCY Status: Chronic (11) PVD (peripheral vascular disease) Code(s): I73.9 - PERIPHERAL VASCULAR DISEASE, UNSPECIFIED Status: Chronic (12) Pulmonary hypertension Code(s): I27.20 - PULMONARY HYPERTENSION, UNSPECIFIED Status: Chronic (13) Secondary hyperparathyroidism of renal origin Code(s): N25.81 - SECONDARY HYPERPARATHYROIDISM OF RENAL ORIGIN Status: Chronic (14) Pulmonary embolism Code(s): I26.99 - OTHER PULMONARY EMBOLISM WITHOUT ACUTE COR PULMONALE Status: Acute - Plan old records reviewed/req Patient is receiving blood transfusion Patient seen and examined bedside today Patient is off Levophed We will repeat labs tomorrow GI, nephrology, consulted Because of severe anemia and suspected ongoing bleeding patient is not a good candidate for chronic anticoagulation in view of her recent history of pulmonary embolism. Palliative care consulted as well. Protonix 40 mg IV daily Renal diet Medications reviewed and continue provide symptomatic and supportive care.
[2020-05-15] MEDS ORDERED: Loratadine 10 MG TAB PO PRN (10:33)
[2020-05-15] MEDS ORDERED: Diabetic Tussin 200 MG/10 ML UDCUP PO PRN (10:33)
[2020-05-15] MEDS ORDERED: Cepastat Lozenges 1 LOZ PO PRN (10:33)
[2020-05-15] MEDS ORDERED: hydrALAZINE 20 MG/ML VIAL SLOW IVP PRN (10:33)
[2020-05-15] MEDS ORDERED: Calcium Carbonate 500 MG ChewTAB PO PRN (10:33)
[2020-05-15] MEDS ORDERED: Senokot S 8.6-50 MG TAB PO PRN (10:33)
[2020-05-15] MEDS ORDERED: Bisacodyl 5 MG TAB PO PRN (10:33)
[2020-05-15] MEDS ORDERED: Metoclopramide HCl 10 MG/2 ML VIAL IVP PRN (10:33)
[2020-05-15] MEDS ORDERED: Loperamide HCl 2 MG CAP PO PRN (10:33)
[2020-05-15] MEDS ORDERED: Sodium Chloride 0.65% Nasal 44 ML BOT EA NARE PRN (10:33)
[2020-05-15] MEDS ORDERED: Sodium Chloride 0.9% (PF) 10 ML VIAL FS PRN (11:00)
--- NOTE | 2020-05-15 11:45 | CON ---
DATE OF CONSULTATION: 05/15/2020 HISTORY OF PRESENT ILLNESS: Ms. Sullivan is a 65-year-old female with end-stage renal disease on dialysis, peripheral vascular disease, and chronic heart failure. Currently on Eliquis for pulmonary embolism. She was admitted to the hospital with acute on chronic anemia with a hemoglobin of 6.1 with her baseline hemoglobin of 8 g/dL. She reports having bloody stool at home prior to admission. She denies any nausea or vomiting. There is no history of hematemesis or coffee-ground emesis. She denies having abdominal pain. Her current complaint is leg pain. Since admission, she has not had any further evidence of bleeding. Her last bowel movement earlier this morning was noted to be greenish and bilious. She is currently receiving 2 units of RBC transfusion. The patient has recurrent admissions for evidence of GI bleeding while previously on Plavix and aspirin. The patient had 2 negative colonoscopies in 2018 with a finding of ulcerated hemorrhoids that ultimately she had a hemorrhoidectomy. Upper endoscopy showed small gastric AVMs and duodenum AVMs that were cauterized. She did have a small bowel capsule evaluation in 2017, that showed bleeding small bowel AVM. Currently, she is hemodynamically stable from GI standpoint. PAST MEDICAL HISTORY: 1. End-stage renal disease on dialysis. 2. Hypertension. 3. Peripheral vascular disease. 4. Heart failure with EF of 20% to 25%. 5. Pancytopenia. PAST SURGICAL HISTORY: 1. Cholecystectomy. 2. Carotid endarterectomy. 3. AICD placement. SOCIAL HISTORY: The patient is . Infrequent alcohol consumption. She smokes a pack a day. FAMILY HISTORY: Negative for any known GI problem, liver disease, or GI malignancy. REVIEW OF SYSTEMS: Difficult to obtain. However, 10-point review of systems did not show any other pertinent positives or negatives or any other symptoms not reported as above. PHYSICAL EXAMINATION: VITAL SIGNS: Temperature 97.9, blood pressure 136/60, and pulse of 82. GENERAL: She is alert, lucid, moaning, but answer questions appropriately. HEENT: Anicteric sclerae. Oropharynx is moist. NECK: Supple. CV: Shows normal S1 and S2. Regular rate and rhythm. CHEST: Shows a breath sounds. Poor excursion. ABDOMEN: Slightly protuberant, but soft. No distention. No tympany. She has active bowel sounds. EXTREMITIES: Does not show any edema. LABORATORY DATA: WBC 6.7, hemoglobin currently at 5.5 (6.1 on admission), platelet count of 200, and MCV of 99.6. Electrolytes within normal range. Creatinine 5.17, bilirubin 0.4, AST of 30, ALT 11, alkaline phosphatase 83, and lipase of 40. ASSESSMENT: 1. Acute on chronic anemia with reported history of having hematochezia at home. The patient was on Eliquis for pulmonary embolism. Extensive gastrointestinal evaluation of the last three years demonstrated vascular ectasias in the stomach and small bowel. Her two colonoscopies were otherwise unremarkable. I suspect her drop in hemoglobin in setting of hematochezia that has now since resolved is likely from arteriovenous malformation bleedings from either small bowel or stomach. 2. End-stage renal disease, on dialysis. 3. Chronic heart failure. 4. Diabetes. 5. Peripheral vascular disease. RECOMMENDATION: 1. Continue with resuscitation and transfusion support to increase her blood count. 2. The patient can need a heart healthy diet/diabetic diet today. 3. Given acute drop in blood count associated with bloody stool at home and finding of AVM in stomach and small bowel on previous evaluation, we will proceed with upper endoscopy tomorrow. 4. Continue to monitor and trend and observe for any recurrent overt bleeding at the present time. 5. Continue with pantoprazole 40 mg IV daily. 6. Continue to hold Eliquis. 7. We will follow. Job ID: [id number]
--- NOTE | 2020-05-15 17:38 | CON ---
DATE OF CONSULTATION: HISTORY OF PRESENT ILLNESS: Seen in the ICU this morning. She was brought to the hospital with weakness, leg pain, shortness of breath, chest pain. She apparently is still smoking. There is /boyfriend in the room. She is found to be anemic right now. She has multiple medical problems. GI has been consulted. She has seen Dr. Toussaint in the office in the past. She has had previous history of pulmonary emboli and has been on Eliquis for a period of time. This morning, she is not wheezing or chest pain. Recurrent GI bleed. PAST MEDICAL HISTORY: PE, asthma, hyperlipidemia, end-stage renal disease, hypertension, hep C, AV malformation, CHF, UTI, multiple admissions for GI bleed. PREVIOUS SURGERY: Multiple endoscopies, cholecystectomy, bilateral carotid surgery, pacemaker in place. HOME MEDICATIONS: 1. Protonix 40. 2. Midodrine 5. 3. Coreg 6.25. 4. Lipitor 10. 5. Aspirin 81. 6. Eliquis 2.5 twice a day. ALLERGIES: IODINE AND PENICILLIN. SOCIAL HISTORY: Still smoking a half pack a day. REVIEW OF SYSTEMS: Negative. PHYSICAL EXAMINATION: GENERAL: She is awake, responsive. VITAL SIGNS: Saturations are 98%, pulse 91, blood pressure 180/80, . CHEST: Rhonchi. CARDIAC: Normal S1, S2. No gallops. ABDOMEN: No masses. LABORATORY DATA: H and H are 5 and 17, white count 6000, platelet count is normal. Creatinine is 5.7. Her last chest x-ray was taken on 04/05 which showed dialysis, AICD in place, cardiomegaly, no acute infiltrates. PLAN: Continue GI workup. Pulmonary/Critical Care is going to follow while in the ICU. I have added some neb treatments to her present regime. Consultation note, 70 minutes, 50% direct patient care. Job ID: [id number]
[2020-05-15 19:12] LABS: SARS-CoV-2 MS2 Positive; SARS-CoV-2 N Gene Negative; SARS-CoV-2 S Gene Negative; SARS-CoV-2 by NAA Not Detected (NotDetected); SARS-CoV-2 orf1ab Negative
[2020-05-15] MEDS: Mometasone 200 MCG/Formoterol 5 MCG 120 PUFF INHALER INH SCH (19:21)
[2020-05-16 05:22] LABS: Lactic Acid 1.1 mmol/L (0.5-2.2)
[2020-05-16 05:26] LABS: Anion Gap 16 mmol/L (10-20); BUN (Urea Nitrogen) 61 mg/dL (9.8-20.1); Calc. Creatinine Clearance 8 mL/min (70-130); Calcium 9.9 mg/dL (7.8-10.44); Carbon Dioxide 26 mmol/L (23-31); Chloride 100 mmol/L (98-107); Estimated GFR-MDRD 8; Glucose 93 mg/dL (80-115); Potassium 3.9 mmol/L (3.5-5.1); Sodium 138 mmol/L (136-145)
[2020-05-16 06:21] LABS: Anisocytosis MODERATE=16-30 cells (100X) (0-5/hpf); Band 15 % (5-11); Eosinophils 2 % (0-10); Hemoglobin 7.8 g/dL (12.0-16.0); Lymphocytes 20 % (21-51); MDiff Complete? YES; Macrocytosis SLIGHT = 6-15 cells (100X) (0-5/hpf); Mean Corpuscular HGB CONC 33.3 g/dL (32.0-36.0); Mean Corpuscular Hemoglobin 31.4 pg (27.0-31.0); Mean Corpuscular Volume 94.3 fL (78.0-98.0); Mean Platelet Volume 7.5 fL (7.4-10.4); Monocytes 6 % (0-10); Neutrophil 57 % (42-75); Platelet Count 200 thou/uL (130-400); RBC Distribution Width 22.3 % (11.5-14.5); White Blood Cell (WBC) Count 6.3 thou/uL (4.8-10.8)
--- NOTE | 2020-05-16 07:25 | CT ---
PRELIMINARY REPORT/[facility]/EMERGENCY AFTER HOURS PROCEDURE EXAM: CT Head Without Intravenous Contrast. CLINICAL HISTORY: F64, SLURRED SPEECH TECHNIQUE: Axial computed tomography images of the head/brain without intravenous contrast. COMPARISON: None provided. FINDINGS: BRAIN: No acute intraparenchymal hemorrhage. No mass lesion. No CT evidence for acute territorial infarct. N o midline shift or extra-axial collection. Scattered punctate calcifications are noted within the left frontal lobe, right lateral sulcus, right parietal and occipital lobes which may be due to prior infection such as cysticercosis. VENTRICLES: No hydrocephalus. ORBITS: The orbits are unremarkable. SINUSES AND MASTOIDS: The paranasal sinuses and mastoid air cells are clear. SOFT TISSUES: No significant facial or scalp soft tissue swelling evident. No radiopaque foreign body is seen. BONES: No acute skull fracture. IMPRESSION: No acute intracranial abnormality. ELECTRONICALLY SIGNED BY: Kerry Ellis MD May 16, 2020 2:07:01 AM CDT This report is intended for review by the ordering physician only, in accordance of law. If you recei ve this report in error, please call [facility] at [phone]. FINAL REPORT Exam: Head CT without contrast HISTORY: Slurred speech. COMPARISON: 07/27/2018 FINDINGS: Hemorrhage: No intraparenchymal hemorrhage or extra-axial hematoma. Brain parenchyma: Cortical saunders-white matter differentiation is preserved. No mass effect or midline shift. Basilar cisterns are patent. Ventricular system: Ventricles and sulci are patent and symmetric. Calvarium: Intact. Sinuses and mastoid air cells: Adequate aeration. IMPRESSION: 1. This report is in agreement with initial report by [facility]. 2.No acute intracranial process. Transcribed Date/Time: 05/16/2020 7:43 AM
[2020-05-16] MEDS: Mometasone 200 MCG/Formoterol 5 MCG 120 PUFF INHALER INH SCH ×2 (07:51→19:05)
[2020-05-16] MEDS ORDERED: Heparin 10,000 UNITS/ 10 ML VIAL ONE (08:24)
[2020-05-16] MEDS ORDERED: Pantoprazole 40 MG VIAL IVP SCH (09:00)
[2020-05-16] MEDS ORDERED: Ketamine 50 MG/ML (10ML VIAL) ONE (09:47)
[2020-05-16] MEDS: Pantoprazole 40 MG VIAL IVP SCH (10:41)
--- NOTE | 2020-05-16 10:43 | OP ---
DATE OF PROCEDURE: 05/16/2020 CIVIL DRAFTING TECHNICIAN SURGEON: None. PROCEDURE: EGD with control of hemorrhage. INDICATION: 1. Upper gastrointestinal bleeding. 2. Soiim-ru-vyigobe blood-loss anemia. 3. Prior history of gastric and duodenal arteriovenous malformations. 4. Recent pulmonary embolus, on Eliquis, now held x3 days. MEDICATIONS: See Anesthesia record. FINDINGS: After discussion of the risks, benefits, and alternatives of the procedure, informed consent was obtained and witnessed. Pre-endoscopic cardiopulmonary examination was satisfactory. Time-out was performed before sedation was achieved. Sedation was achieved with Anesthesia assistance in the endoscopy unit. A Pentax adult upper endoscope was placed into the oropharynx and passed through the cricopharyngeus under direct visualization. The esophageal mucosa appeared normal throughout. There was no evidence of any esophageal varices. The endoscope was advanced into the stomach. Forward and retroflexed views of the entire gastric mucosa were obtained. In the proximal gastric body along the lesser curvature, there was a single actively bleeding mucosal break consistent with Dieulafoy's lesion. This did not have the appearance of an arteriovenous malformation. There was no associated ulceration. Quick survey of the remainder of the gastric mucosa revealed no other lesions or abnormalities. There was a small amount of old and fresh blood within the gastric fundus, which was suctioned. The endoscope was passed through the pylorus and into the first and second portions of the duodenum, which showed no abnormalities. Attention was directed to the Dieulafoy's lesion. A 7-Luxembourger bipolar cautery probe was used to cauterize the actively bleeding lesion with good result. Hemostasis was achieved. At this point, the upper endoscope was completely withdrawn. The patient did have transient oxygen desaturation during the procedure, but there were no other immediate complications. She was taken to the PACU in stable condition. IMPRESSION: 1. Actively bleeding Dieulafoy's lesion on the lesser curvature of the proximal gastric body. Treated successfully with 7-Luxembourger bipolar cautery, with good hemostasis achieved. 2. Otherwise unremarkable esophagogastroduodenoscopy. RECOMMENDATION: 1. Continue the pantoprazole 40 mg IV daily. Switch to oral dosing on discharge. 2. Advance diet. 3. I would recommend avoiding or minimizing anticoagulation for the next week, if possible. 4. GI will follow along tomorrow. Please call anytime with questions or concerns. Job ID: [id number]
[2020-05-16] MEDS: Carvedilol 6.25 MG TAB PO SCH ×3 (10:44→21:11)
[2020-05-16] MEDS: Atorvastatin Calcium 10 MG TAB PO SCH (10:44)
[2020-05-16] MEDS ORDERED: PROPOFOL 200 MG/20 ML VIAL ONE (11:08)
[2020-05-16] MEDS: HYDROcodone/Acetaminophen 5/325 mg Tablet PO PRN ×2 (15:58→21:10)
--- NOTE | 2020-05-16 16:09 | PDOC.HOSPP ---
- Subjective Encounter Date: 05/16/20 Encounter Time: 10:30 Subjective: pt up in bed drowsy but arousable. - Objective Vital Signs & Weight: Vital Signs (12 hours) Temp Pulse Resp BP Pulse Ox 05/16/20 12:00 72 16 140/62 98 05/16/20 10:20 97.6 F 75 14 137/63 100 05/16/20 08:00 95 05/16/20 07:59 96.9 F L 82 17 146/65 H 95 05/16/20 07:51 84 20 94 L Weight Weight 122 lb Most Recent Monitor Data Heart Rate from ECG 82 NIBP 144/63 NIBP BP-Mean 75 Respiration from ECG 30 SpO2 99 I&O: 05/15/20 05/16/20 05/17/20 06:59 06:59 06:59 Intake Total 1040 Output Total 0 Balance 1040 Result Diagrams: 05/17/20 06:54 05/16/20 04:37 Additional Labs: Accuchecks 05/15/20 06:08 POC Glucose 99 Hospitalist ROS - Review of Systems Cardiovascular: denies: chest pain, palpitations, orthopnea, paroxysmal noc. dyspnea, edema, light headedness, other Gastrointestinal: denies: nausea, vomiting, abdominal pain, diarrhea, constipation, melena, hematochezia, other Genitourinary: denies: dysuria, frequency, incontinence, hematuria, retention, other - Medication Medications: Active Medications Generic Name Dose Route Start Last Admin Trade Name Freq PRN Reason Stop Dose Admin Hydrocodone Bitart/Acetaminophen 1 tab 05/15/20 10:33 05/16/20 15:58 Hydrocodone/Acetaminophen 5/325 Mg Tablet PO 1 tab Q4H PRN Administration Moderate Pain (4-6) Atorvastatin Calcium 10 mg 05/16/20 09:00 05/16/20 10:44 Atorvastatin Calcium 10 Mg Tab PO 10 mg DAILY ALONZO Administration Carvedilol 6.25 mg 05/16/20 09:00 05/16/20 15:58 Carvedilol 6.25 Mg Tab PO 6.25 mg TID ALONZO Administration Mometasone Furoate/Formoterol Fumar 2 puff 05/15/20 18:30 05/16/20 07:51 Mometasone 200 Mcg/Formoterol 5 Mcg 120 Puff Inhaler INH 2 puff BID-RT ALONZO Administration Pantoprazole Sodium 40 mg 05/16/20 09:00 05/16/20 10:41 Pantoprazole 40 Mg Vial IVP 40 mg DAILY ALONZO Administration - Exam Neck: negative: supple, symmetric, no JVD, no thyromegaly, no lymphadenopathy, no carotid bruit, JVD Heart: negative: RRR, no murmur, no gallops, no rubs, normal peripheral pulses, irregular, diminshed peripheral pulses, murmur present, II/IV, III/IV Respiratory: negative: CTAB, no wheezes, no rales, no ronchi, normal chest expansion, no tachypnea, normal percussion, rales, rhonchi, tachypneic, wheezes Gastrointestinal: negative: soft, non-tender, non-distended, normal bowel sounds, no palpable masses, no hepatomegaly, no splenomegaly, no bruit, no guarding, no rigidity, tender to palpation, distended, diminished bowl sounds, voluntary guarding Hosp A/P (1) GI bleed Code(s): K92.2 - GASTROINTESTINAL HEMORRHAGE, UNSPECIFIED Status: Acute Qualifiers: GI bleed type/associated pathology: unspecified gastrointestinal hemorrhage type Qualified Code(s): K92.2 - Gastrointestinal hemorrhage, unspecified (2) Pulmonary embolism Code(s): I26.99 - OTHER PULMONARY EMBOLISM WITHOUT ACUTE COR PULMONALE Status: Acute (3) Anemia due to acute blood loss Code(s): D62 - ACUTE POSTHEMORRHAGIC ANEMIA Status: Acute (4) CAD (coronary artery disease) Code(s): I25.10 - ATHSCL HEART DISEASE OF [place] CORONARY ARTERY W/O ANG PCTRS Status: Chronic Qualifiers: Coronary Disease-Associated Artery/Lesion type: [place] artery [place] vs. transplanted heart: [place] heart Associated angina: without angina Qualified Code(s): I25.10 - Atherosclerotic heart disease of [place] coronary artery without angina pectoris (5) ESRD (end stage renal disease) on dialysis Code(s): N18.6 - END STAGE RENAL DISEASE; Z99.2 - DEPENDENCE ON RENAL DIALYSIS Status: Chronic (6) HTN (hypertension) Code(s): I10 - ESSENTIAL (PRIMARY) HYPERTENSION Status: Chronic Qualifiers: Hypertension type: essential hypertension Qualified Code(s): I10 - Essential (primary) hypertension (7) PVD (peripheral vascular disease) Code(s): I73.9 - PERIPHERAL VASCULAR DISEASE, UNSPECIFIED Status: Chronic - Plan pt's CTA indicates posterior medial medial right lower lobe PE. Patient was on Eliquis however continues to have GI bleeds. She had an EGD done today which indicated a dieulafoy lesion lesser curvature of the proximal gastric body. Patient has been off of Eliquis for the past 3 days. Will get a lower extremity venous Dopplers if she does have DVT may be a candidate for IVC filter. She also has severe peripheral vascular disease given on arterial Dopplers. GI recommends against anticoagulation however given her recent PE this will be difficult. i spoke with gi in regards to her elevated trops and starting AC. she has no chest pain/sob or chest pressure. ekg no acute changes. i will start her on heparin without a initial bolus and consult cardio. she has transient hypoxia while she was getting her egd. she has had some cardiac complication under anesthesia in the past. I updated the pt and did call her family Miss Fidel who is her cousin and updated her too.
[2020-05-16 17:01] LABS: Lactic Acid 1.4 mmol/L (0.5-2.2)
[2020-05-16 17:33] LABS: CKMB 3.5 ng/mL (0-6.6)
[2020-05-16] MEDS ORDERED: Heparin 10,000 UNITS/ 10 ML VIAL SLOW IVP SCH (17:45)
[2020-05-16] MEDS ORDERED: Aspirin 81 mg Enteric Coated Tablet PO SCH (17:45)
[2020-05-16 18:08] LABS: Hemoglobin 7.5 g/dL (12.0-16.0); Platelet Count 197 thou/uL (130-400)
[2020-05-16] MEDS: Heparin 25,000 units/D5W 500 ML IVPB SCH (18:56)
[2020-05-16] MEDS: Midodrine HCl 5 MG TAB PO SCH (21:11)
--- NOTE | 2020-05-16 22:00 | ULT ---
BILATERAL LOWER EXTREMITY VENOUS DUPLEX EXAM: 05/16/20 HISTORY: Bilateral leg pain and swelling. Real time color Doppler evaluation of the right and left lower extremities were performed from groin to calf. This includes evaluation of common femoral, superficial and profunda femoral, saphenous, pop liteal and posterior tibial veins. This shows patent deep venous systems bilaterally. There is normal compressibility and augmentation. There is no evidence of DVT. IMPRESSION: No evidence of DVT of either lower extremity. POS: KATI
[2020-05-17 07:09] LABS: Hemoglobin 7.3 g/dL (12.0-16.0); Mean Corpuscular HGB CONC 32.3 g/dL (32.0-36.0); Mean Corpuscular Hemoglobin 31.5 pg (27.0-31.0); Mean Corpuscular Volume 97.6 fL (78.0-98.0); Mean Platelet Volume 7.9 fL (7.4-10.4); Platelet Count 199 thou/uL (130-400); RBC Distribution Width 22.9 % (11.5-14.5); White Blood Cell (WBC) Count 4.6 thou/uL (4.8-10.8)
[2020-05-17 07:26] LABS: Anisocytosis MODERATE=16-30 cells (100X) (0-5/hpf); Band 1 % (5-11); Eosinophils 11 % (0-10); Lymphocytes 27 % (21-51); MDiff Complete? YES; Monocytes 9 % (0-10); Neutrophil 52 % (42-75); Ovalocytes SLIGHT = 2-5 cells (100X) (0-1/hpf); Platelet Morphology Comment Appears Adequate; Polychromasia MODERATE = 3-4 cells (100X) (0-2/hpf)
[2020-05-17] MEDS: Mometasone 200 MCG/Formoterol 5 MCG 120 PUFF INHALER INH SCH ×2 (07:29→19:13)
[2020-05-17 08:38] LABS: Critical Call Chem Troponin I RESULT DECREASING; Troponin I 3.036 ng/mL (< 0.028)
[2020-05-17] MEDS: Atorvastatin Calcium 10 MG TAB PO SCH (08:51)
[2020-05-17] MEDS: Pantoprazole 40 MG VIAL IVP SCH (08:52)
[2020-05-17] MEDS: Carvedilol 6.25 MG TAB PO SCH ×3 (08:57→21:18)
[2020-05-17] MEDS ORDERED: Aspirin Chewable 81 MG TAB PO SCH ×2 (09:00→10:30)
--- NOTE | 2020-05-17 09:24 | PRG ---
DATE OF SERVICE: 05/17/2020 SUBJECTIVE: Ms. Sullivan is a 65-year-old black female with ESRD-on maintenance hemodialysis and admitted for GI bleed. She was noted to have symptomatic anemia when she came in. She underwent an upper GI endoscopy on May 16, 2020. Finding of active bleeding dieulafoy lesion on the lesser curvature. Cauterization was done. Recommendation by GI is to hold off anticoagulation for 1 to 2 weeks. No new complaints except for the chronic lower leg weakness. No complaints of chest pain or shortness of breath. Please note, she had a Doppler study of both legs, which showed no DVT. OBJECTIVE: VITAL SIGNS: Blood pressure 131/57, heart rate 72, respiratory rate 16, temperature 98.7, O2 saturation 97%. GENERAL: The patient is awake, lethargic, not in overt distress. SKIN: Adequate turgor. HEENT: Slightly pale conjunctivae. Anicteric sclerae. NECK: No neck mass. No carotid bruits. No JVD. CHEST: No deformities. LUNGS: Clear breath sounds. No wheezing. No crackles. HEART: Normal sinus rhythm. No murmur. No gallops. No rubs. ABDOMEN: Globular, soft, nontender. No masses. EXTREMITIES: No edema. No deformities. MEDICATIONS: On May 17, 2020, were reviewed. LABORATORY DATA: White count 4.6, hemoglobin 7.3. Sodium 138, potassium 3.9, BUN 61, creatinine 6.19 that was on May 16, 2020. Troponin I is 3.036. ASSESSMENT AND PLAN: 1. Anemia/gastrointestinal bleed-status post upper gastrointestinal endoscopy with cauterization of the gastrointestinal bleeder. Recheck CBC in a.m. P.r.n. blood transfusion. We will start Epogen with this patient. 2. End-stage renal disease, stable. Continue current Thursday, Thursday, and Thursday hemodialysis. There is no indication for any emergent hemodialysis with this patient. 3. Chronic leg weakness-the patient may need eventual workup for the intermittent lower leg weakness. 4. Please note that on May 16, 2020, a CT scan of the head was done, which showed no acute intracranial process. 5. Recheck CBC and basic metabolic in a.m. Job ID: [id number]
[2020-05-17 09:45] LABS: Anion Gap 13 mmol/L (10-20); BUN (Urea Nitrogen) 23 mg/dL (9.8-20.1); Calc. Creatinine Clearance 13 mL/min (70-130); Calcium 8.9 mg/dL (7.8-10.44); Carbon Dioxide 28 mmol/L (23-31); Chloride 102 mmol/L (98-107); Estimated GFR-MDRD 15; Glucose 108 mg/dL (80-115); Potassium 3.6 mmol/L (3.5-5.1); Sodium 139 mmol/L (136-145)
[2020-05-17 11:57] LABS: Troponin I 2.885 ng/mL (< 0.028)
--- NOTE | 2020-05-17 15:16 | PRG ---
DATE OF SERVICE: 05/17/2020 SUBJECTIVE: Ms. Sullivan is without complaints today. She is eating. She had upper endoscopy with cautery of a vessel in the stomach. It is accumulating blood. OBJECTIVE: VITAL SIGNS: Temperature is 98, pulse 92, blood pressure 145/55. ABDOMEN: Soft, nontender. LUNGS: Clear. LABORATORY DATA: Hemoglobin today is 7.3, white count 4.6, platelet count 109. ASSESSMENT: 1. History of chronic arteriovenous malformations of the upper gastrointestinal tract and small bowel, which could not be reached endoscopically. 2. Status post cautery of an oozing blood vessel in the stomach with control of bleeding. 3. Status post respiratory arrest during aforementioned endoscopy this time as well as at her previous endoscopy. This time, her saturations dropped into the 30s and requires bag mask ventilation. 4. Recent pulmonary embolus, for which she has been restarted on anticoagulation. This is apparently occurred when she was getting a clot in the graft on her left arm, which has been abandoned now. RECOMMENDATIONS: 1. I would keep her on the anticoagulation for a minimum amount of time as possible. It would be reasonable to talk to Pulmonary about the special circumstances of this pulmonary embolism and if she has to be fully anticoagulated for 6 months or not. 2. Continue PPI therapy. 3. Transfuse as needed. 4. We will sign off at this point in time. We would intervene with endoscopy only if she has shown acute hemorrhage as she has high risk of mortality with each time she receives general or regional anesthetic. Job ID: [id number]
--- NOTE | 2020-05-17 16:09 | CON ---
DATE OF CONSULTATION: REASON FOR CONSULTATION: Elevated troponin. PRIMARY SACK CLEANING HAND: Max Pfeiffer MD HISTORY OF PRESENT ILLNESS: Ms. Sullivan is a 65-year-old woman with a history of end-stage renal disease in addition to pacemaker/ICD, who recently presented with upper GI bleed. She was found to have bleed in the lesser curvature of the stomach. This was cauterized. Her troponin was elevated with a peak troponin of 4. She also had a hemoglobin of 5.5 and received blood products. She was also evaluated one month ago for PE. This occurred after declotting of fistula. She developed acute onset shortness of breath and chest pain after the fistula. She has had lower extremity duplex that was negative for DVT. PAST MEDICAL HISTORY: End-stage renal disease, ischemic cardiomyopathy, CAD, torsade de pointes, previous GI bleed from AV malformation, diverticulosis, CAD status post stent placement, hyperparathyroidism, recurrent anemia, hypercholesterolemia. PAST SURGICAL HISTORY: As described above including AICD placement, , carotid endarterectomy, AV fistula, and cholecystectomy. HOME MEDICATIONS: Include: 1. Protonix. 2. Renvela. 3. Carvedilol. 4. Sensipar. 5. Folic acid. 6. Tylenol. 7. Aspirin. 8. Atorvastatin. 9. Lisinopril. ALLERGIES: CONTRAST AND PENICILLIN. SOCIAL HISTORY: Positive tobacco use. REVIEW OF SYSTEMS: A 10-point review of systems is reviewed as above, otherwise negative. PHYSICAL EXAMINATION: GENERAL: Patient is a pleasant female who is in no acute distress. The patient appears their stated age. VITAL SIGNS: Blood pressure 120/69, pulse 70, temperature 98. NEUROLOGIC: The patient is alert and oriented x3 with no focal neurologic deficits. HEENT: Sclerae without icterus. Mouth has moist mucous membranes with normal pallor. NECK: No JVD. Carotid upstroke brisk. No bruits bilaterally. LUNGS: Clear to auscultation with unlabored respirations. BACK: No scoliosis or kyphosis. CARDIAC: Regular rate and rhythm with normal S1 and S2. No S3 or S4 noted. No significant rubs, murmurs, thrills, or gallops noted throughout the precordium. PMI is not displaced. There is no parasternal heave. ABDOMEN: Soft, nontender, nondistended. No peritoneal signs present. No hepatosplenomegaly. No abnormal striae. EXTREMITIES: 2+ femoral and 2+ dorsalis pedis pulses. No cyanosis, clubbing, or edema. SKIN: No gross abnormalities. PERTINENT LABS: Initial hemoglobin of 5.5, now 9.0, platelet count 172. Creatinine 4.72. Peak troponin 3.036. IMPRESSION: 1. Recent upper gastrointestinal bleed. 2. Recent PE. 3. End-stage renal disease. 4. Coronary artery disease. 5. Status post implantable cardioverter-defibrillator. 6. Tobacco abuse. RECOMMENDATIONS: The patient's elevated troponin likely related to demand ischemia. The patient's hemoglobin was markedly diminished at 5.5. She has no current symptoms suggesting angina. We will continue with conservative therapy and avoid anticoagulation therapy due to recent bleeding. She was previously on Eliquis due to recent PE, which has been discontinued. As far as the PE, but had attributed to declotting of her fistula as the source. Her lower extremity duplex was negative for DVT. The symptoms occurred in the face of declotting the fistula. At this point, we would recommend again conservative therapy. Otherwise further recommendation per Dr. Max Pfeiffer. Job ID: [id number]
--- NOTE | 2020-05-17 16:12 | PRG ---
DATE OF SERVICE: 05/17/2020 SUBJECTIVE: Dai Sullivan is a 65-year-old female, who was in the hospital for lower GI bleed secondary to presumed AV malformation and a recent endoscopy revealing actively bleeding lesion seen in the gastric body, arterial bleed. Anticoagulation was withheld. She was recently diagnosed to have a single segmental pulmonary emboli for which she was on Eliquis 2.5 twice a day following left arm declotting procedure on 04/27/20. That is roughly about 3 weeks ago. Today she is asymptomatic. Denies any chest pain, shortness of breath, coughing, or wheezing. On further questioning her, she states for an extended period of time she took Coumadin for a long period of time, which was discontinued sometime. She is now on IV heparin. Dr. Lewis, picture hanger, has seen the patient, is wondering whether she needs an inferior vena cava filter. OBJECTIVE: VITAL SIGNS: Her [id number], pulse 72, saturations 97% on 2 L, respiratory rate 18, blood pressure 130/57. CHEST: No wheezing, no crackles. CARDIAC: Normal S1, S2. No gallops. ABDOMEN: Soft. NEUROLOGIC: Awake, alert, responsive. LABORATORY DATA: H and H are 7 and 22, platelet count is 199, white count 4000. PTT 75. Creatinine 3. Troponin slightly elevated at 2. Venogram was negative. Chest x-ray did not reveal acute infiltrates. IMPRESSION: 1. End-stage renal disease. 2. 3 weeks ago a single segmental right middle lobe pulmonary artery emboli. 3. 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 4. Congestive heart failure. 5. Elevated troponin. 6. Chronic obstructive pulmonary disease, followed by Dr. Toussaint in our office. PLAN: Complicated issue. This present episode of pulmonary emboli did not seem to warrant any indication filter even though she has an active arterial bleed gastric endoscopy revealed. We are trying to withhold anticoagulation at this time. I will continue to hold all anticoagulation until she is stable. If she has another episode of chest pain, shortness of breath, revealing pulmonary emboli, she will need a filter without any hesitation. I will discuss with Dr. Lewis. Additionally, Dr. Toussaint is available for followup next week. Job ID: [id number] [facility]
[2020-05-17 16:39] LABS: Hemoglobin 7.3 g/dL (12.0-16.0)
--- NOTE | 2020-05-17 16:45 | PDOC.HOSPP ---
- Subjective Encounter Date: 05/17/20 Encounter Time: 09:15 Subjective: Patient up in bed denies any complaints - Objective Vital Signs & Weight: Vital Signs (12 hours) Temp Pulse Resp BP BP Pulse Ox 05/17/20 16:16 131/57 L 05/17/20 11:39 98.0 F 72 18 114/55 L 97 05/17/20 08:57 131/57 L 05/17/20 07:55 98.7 F 72 16 131/57 L 97 05/17/20 07:50 97 05/17/20 07:31 99 05/17/20 07:29 70 20 99 Weight Weight 119 lb 11.376 oz Most Recent Monitor Data Heart Rate from ECG 82 NIBP 144/63 NIBP BP-Mean 75 Respiration from ECG 30 SpO2 99 I&O: 05/16/20 05/17/20 05/18/20 06:59 06:59 06:59 Intake Total 1040 960 120 Output Total 0 2600 Balance 1040 -1640 120 Result Diagrams: 05/17/20 06:54 05/17/20 07:55 Hospitalist ROS - Review of Systems Cardiovascular: denies: chest pain, palpitations, orthopnea, paroxysmal noc. dyspnea, edema, light headedness, other Gastrointestinal: denies: nausea, vomiting, abdominal pain, diarrhea, constipation, melena, hematochezia, other Genitourinary: denies: dysuria, frequency, incontinence, hematuria, retention, other - Medication Medications: Active Medications Generic Name Dose Route Start Last Admin Trade Name Freq PRN Reason Stop Dose Admin Hydrocodone Bitart/Acetaminophen 1 tab 05/15/20 10:33 05/16/20 21:10 Hydrocodone/Acetaminophen 5/325 Mg Tablet PO 1 tab Q4H PRN Administration Moderate Pain (4-6) Atorvastatin Calcium 10 mg 05/16/20 09:00 05/17/20 08:51 Atorvastatin Calcium 10 Mg Tab PO 10 mg DAILY ALONZO Administration Carvedilol 6.25 mg 05/16/20 09:00 05/17/20 16:16 Carvedilol 6.25 Mg Tab PO 6.25 mg TID ALONZO Administration Heparin Sodium (Porcine) 0 units 05/16/20 17:45 05/17/20 02:00 Heparin 10,000 Units/ 10 Ml Vial SLOW IVP 1,659 unit ASDIR ALONZO Administration Protocol Heparin Sodium/Dextrose 500 mls @ 0 mls/hr 05/16/20 17:45 05/16/20 18:56 Heparin 25,000 Units/D5w IVPB 500 mls INF ALONZO Administration Protocol Per Protocol Midodrine 5 mg 05/16/20 21:00 05/16/20 21:11 Midodrine Hcl 5 Mg Tab PO 5 mg HS ALONZO Administration Mometasone Furoate/Formoterol Fumar 2 puff 05/15/20 18:30 05/17/20 07:29 Mometasone 200 Mcg/Formoterol 5 Mcg 120 Puff Inhaler INH 2 puff BID-RT ALONZO Administration Pantoprazole Sodium 40 mg 05/16/20 09:00 05/17/20 08:52 Pantoprazole 40 Mg Vial IVP 40 mg DAILY ALONZO Administration - Exam Neck: negative: supple, symmetric, no JVD, no thyromegaly, no lymphadenopathy, no carotid bruit, JVD Heart: negative: RRR, no murmur, no gallops, no rubs, normal peripheral pulses, irregular, diminshed peripheral pulses, murmur present, II/IV, III/IV Respiratory: negative: CTAB, no wheezes, no rales, no ronchi, normal chest expansion, no tachypnea, normal percussion, rales, rhonchi, tachypneic, wheezes Gastrointestinal: negative: soft, non-tender, non-distended, normal bowel sound s, no palpable masses, no hepatomegaly, no splenomegaly, no bruit, no guarding, no rigidity, tender to palpation, distended, diminished bowl sounds, voluntary guarding Hosp A/P (1) GI bleed Code(s): K92.2 - GASTROINTESTINAL HEMORRHAGE, UNSPECIFIED Status: Acute Qualifiers: GI bleed type/associated pathology: unspecified gastrointestinal hemorrhage type Qualified Code(s): K92.2 - Gastrointestinal hemorrhage, unspecified (2) Pulmonary embolism Code(s): I26.99 - OTHER PULMONARY EMBOLISM WITHOUT ACUTE COR PULMONALE Status: Acute (3) Anemia due to acute blood loss Code(s): D62 - ACUTE POSTHEMORRHAGIC ANEMIA Status: Acute (4) CAD (coronary artery disease) Code(s): I25.10 - ATHSCL HEART DISEASE OF [place] CORONARY ARTERY W/O ANG PCTRS Status: Chronic Qualifiers: Coronary Disease-Associated Artery/Lesion type: [place] artery [place] vs. transplanted heart: [place] heart Associated angina: without angina Qualified Code(s): I25.10 - Atherosclerotic heart disease of [place] coronary artery without angina pectoris (5) ESRD (end stage renal disease) on dialysis Code(s): N18.6 - END STAGE RENAL DISEASE; Z99.2 - DEPENDENCE ON RENAL DIALYSIS Status: Chronic (6) HTN (hypertension) Code(s): I10 - ESSENTIAL (PRIMARY) HYPERTENSION Status: Chronic Qualifiers: Hypertension type: essential hypertension Qualified Code(s): I10 - Essential (primary) hypertension (7) PVD (peripheral vascular disease) Code(s): I73.9 - PERIPHERAL VASCULAR DISEASE, UNSPECIFIED Status: Chronic - Plan pt's CTA indicates posterior medial medial right lower lobe PE. Patient was on Eliquis however continues to have GI bleeds. She had an EGD done today which indicated a dieulafoy lesion lesser curvature of the proximal gastric body. Patient has been off of Eliquis for the past 3 days. Will get a lower extremity venous Dopplers if she does have DVT may be a candidate for IVC filter. She also has severe peripheral vascular disease given on arterial Dopplers. GI rec ommends against anticoagulation however given her recent PE this will be difficult. i spoke with gi in regards to her elevated trops and starting AC. she has no chest pain/sob or chest pressure. ekg no acute changes. i will start her on heparin without a initial bolus and consult cardio. she has transient hypoxia while she was getting her egd. she has had some cardiac complication under anesthesia in the past. I updated the pt and did call her family Miss Fidel who is her cousin and updated her too. 05/17 spoke with patient's daughter Esther phone number is [phone] and updated her about her mom's current condition. We will continue heparin for now we will check H&H later today. We will get an MRI brain since patient speech does appear more slow than baseline. CT head was negative.
[2020-05-17 17:11] LABS: Critical Call Chem Troponin I RESULT DECREASING; Troponin I 2.923 ng/mL (< 0.028)
[2020-05-17] MEDS: Midodrine HCl 5 MG TAB PO SCH (21:17)
[2020-05-17] MEDS: HYDROcodone/Acetaminophen 5/325 mg Tablet PO PRN (21:17)
[2020-05-18] MEDS: Heparin 25,000 units/D5W 500 ML IVPB SCH (01:47)
[2020-05-18 01:51] LABS: #Eosinphils 0.1 thou/uL (0.0-0.7); #Monocytes 0.5 thou/uL (0.11-0.59); #Neutrophils 2.7 thou/uL (1.40-6.50); %Basophils 0.6 % (0.0-1.0); %Eosinophils 2.7 % (0.0-10.0); %Lymphocytes 23.4 % (21.0-51.0); %Monocytes 11.9 % (0.0-10.0); %Neutrophils 61.5 % (42.0-75.0); Hemoglobin 6.9 g/dL (12.0-16.0); Mean Corpuscular HGB CONC 32.6 g/dL (32.0-36.0); Mean Corpuscular Hemoglobin 31.9 pg (27.0-31.0); Mean Corpuscular Volume 97.9 fL (78.0-98.0); Mean Platelet Volume 7.7 fL (7.4-10.4); Platelet Count 173 thou/uL (130-400); RBC Distribution Width 23.5 % (11.5-14.5); Red Blood Cell (RBC) Count 2.17 mill/uL (4.20-5.40); White Blood Cell (WBC) Count 4.3 thou/uL (4.8-10.8)
--- NOTE | 2020-05-18 08:59 | PRG ---
DATE OF SERVICE: 05/18/2020 SUBJECTIVE: Ms. Sullivan is a 65-year-old black female with ESRD, was admitted for GI bleed. She is status post upper GI endoscopy with cauterization of her bleeding lesion. In addition, the patient is feeling much better this morning. She was noted to have a hemoglobin 6.9. The plan is to have her transfuse with at least 1 unit packed RBC with dialysis. No other complaints. OBJECTIVE: VITAL SIGNS: Blood pressure is 118/49, heart rate 69, respiratory rate 18, temperature 98.7, O2 saturation 100%. GENERAL: The patient is awake, alert, comfortable, not in distress. SKIN: Adequate turgor. HEENT: Slightly pale conjunctivae. Anicteric sclerae. No neck mass. No carotid bruits. No JVD. CHEST: No deformities. LUNGS: Clear breath sounds. HEART: Normal sinus rhythm. No murmur. No gallops. No rubs. ABDOMEN: Globular, soft, nontender. No masses. EXTREMITIES: No edema. No deformities. MEDICATIONS: Medications of May 18, 2020, were reviewed. LABORATORY DATA: Laboratories of May 18, 2020; white count 4.3, hemoglobin 6.9. On May 17, 2020; BUN 33, creatinine 3.73. Troponin-I was 2.9. ASSESSMENT AND PLAN: 1. End-stage renal disease, stable. We will continue current hemodialysis regimen. No heparin use will be done due to recent GI bleed. Fluid removal only as tolerated. 2. Anemia - continuing weekly Epogen. The patient is status post upper GI bleed. Heparin is currently on hold. 3. Status post pulmonary embolism - recommendation to hold anticoagulation for at least 1 to 2 weeks. Hold off Eliquis. 4. Recheck CBC in a.m. Job ID: [id number]
[2020-05-18 09:10] LABS: #Eosinphils 0.1 thou/uL (0.0-0.7); #Monocytes 0.6 thou/uL (0.11-0.59); #Neutrophils 2.4 thou/uL (1.40-6.50); %Basophils 0.5 % (0.0-1.0); %Eosinophils 3.1 % (0.0-10.0); %Lymphocytes 24.4 % (21.0-51.0); %Monocytes 14.7 % (0.0-10.0); %Neutrophils 57.3 % (42.0-75.0); Hemoglobin 7.1 g/dL (12.0-16.0); Mean Corpuscular HGB CONC 31.8 g/dL (32.0-36.0); Mean Platelet Volume 7.5 fL (7.4-10.4); Platelet Count 170 thou/uL (130-400); RBC Distribution Width 23.9 % (11.5-14.5); Red Blood Cell (RBC) Count 2.23 mill/uL (4.20-5.40); White Blood Cell (WBC) Count 4.1 thou/uL (4.8-10.8)
[2020-05-18] MEDS: Pantoprazole 40 MG VIAL IVP SCH (09:17)
[2020-05-18] MEDS: Atorvastatin Calcium 10 MG TAB PO SCH (09:17)
[2020-05-18] MEDS: Aspirin 81 mg Enteric Coated Tablet PO SCH (09:17)
[2020-05-18] MEDS: Carvedilol 6.25 MG TAB PO SCH ×3 (09:27→21:28)
[2020-05-18] MEDS ORDERED: Heparin 10,000 UNITS/ 10 ML VIAL ONE (09:27)
[2020-05-18] MEDS ORDERED: Albumin 25% 25 GM/100 ML BOT IVPB SCH (10:30)
--- NOTE | 2020-05-18 10:56 | PRG ---
DATE OF SERVICE: 05/18/2020 SUBJECTIVE: Dai Sullivan being dialyzed this morning. Denies any pain, shortness of breath, coughing, or wheezing. Troponin remains elevated. OBJECTIVE: VITAL SIGNS: Pulse is 80, respiratory rate 18, blood pressure 130/80. CHEST: No wheezing. No crackles. CARDIAC: Normal S1 and S2. No gallops. ABDOMEN: No masses. ASSESSMENT: 1. Arterial gastrointestinal bleed. 2. Recent history of pulmonary emboli single-vessel right middle lobe artery. 3. Remote history of previous pulmonary embolism years ago as per the patient. 4. Chronic renal failure. PLAN: 1. As per discussion with Dr. Lewis at this stage, I would hold off putting a filter. I would discontinue all anticoagulation. Still getting heparin. I do not see how she is getting heparin, especially with an arterial bleed in place. 2. COPD, stable and she has another documented episode of bilateral pulmonary emboli and she is probably at risk for anticoagulation because of AV malformation and recurrent GI bleed. She will require a filter. Dr. Toussaint will discuss with you next week if you have any additional questions. Job ID: [id number]
[2020-05-18] MEDS: Mometasone 200 MCG/Formoterol 5 MCG 120 PUFF INHALER INH SCH ×2 (12:27→19:44)
--- NOTE | 2020-05-18 15:05 | PDOC.HOSPP ---
- Subjective Encounter Date: 05/18/20 Encounter Time: 10:30 Subjective: pt up in dialysis no complains - Objective Vital Signs & Weight: Vital Signs (12 hours) Temp Pulse Pulse Resp BP BP Pulse Ox 05/18/20 10:38 98.3 F 70 16 93/48 L 05/18/20 08:00 96.5 F L 69 16 115/50 L 97 05/18/20 04:54 98.7 F 69 18 118/49 L 100 Weight Weight 120 lb 5.958 oz Most Recent Monitor Data Heart Rate from ECG 82 NIBP 144/63 NIBP BP-Mean 75 Respiration from ECG 30 SpO2 99 I&O: 05/17/20 05/18/20 05/19/20 06:59 06:59 06:59 Intake Total 960 440 0 Output Total 2600 100 Balance -1640 340 0 Result Diagrams: 05/18/20 08:54 05/17/20 07:55 Hospitalist ROS - Review of Systems Cardiovascular: denies: chest pain, palpitations, orthopnea, paroxysmal noc. dys pnea, edema, light headedness, other Gastrointestinal: denies: nausea, vomiting, abdominal pain, diarrhea, constipation, melena, hematochezia, other Genitourinary: denies: dysuria, frequency, incontinence, hematuria, retention, other - Medication Medications: Active Medications Generic Name Dose Route Start Last Admin Trade Name Freq PRN Reason Stop Dose Admin Hydrocodone Bitart/Acetaminophen 1 tab 05/15/20 10:33 05/17/20 21:17 Hydrocodone/Acetaminophen 5/325 Mg Tablet PO 1 tab Q4H PRN Administration Moderate Pain (4-6) Aspirin 81 mg 05/18/20 09:00 05/18/20 09:17 Aspirin 81 Mg Enteric Coated Tablet PO 81 mg DAILY ALONZO Administration Atorvastatin Calcium 10 mg 05/16/20 09:00 05/18/20 09:17 Atorvastatin Calcium 10 Mg Tab PO 10 mg DAILY ALONZO Administration Carvedilol 6.25 mg 05/16/20 09:00 05/18/20 09:27 Carvedilol 6.25 Mg Tab PO Not Given TID ALONZO Midodrine 5 mg 05/16/20 21:00 05/17/20 21:17 Midodrine Hcl 5 Mg Tab PO 5 mg HS ALONZO Administration Mometasone Furoate/Formoterol Fumar 2 puff 05/15/20 18:30 05/18/20 12:27 Mometasone 200 Mcg/Formoterol 5 Mcg 120 Puff Inhaler INH Not Given BID-RT [facility] Pantoprazole Sodium 40 mg 05/16/20 09:00 05/18/20 09:17 Pantoprazole 40 Mg Vial IVP 40 mg DAILY ALONZO Administration - Exam Neck: negative: supple, symmetric, no JVD, no thyromegaly, no lymphadenopathy, no carotid bruit, JVD Heart: negative: RRR, no murmur, no gallops, no rubs, normal peripheral pulses, irregular, diminshed peripheral pulses, murmur present, II/IV, III/IV Respiratory: negative: CTAB, no wheezes, no rales, no ronchi, normal chest expansion, no tachypnea, normal percussion, rales, rhonchi, tachypneic, wheezes Gastrointestinal: negative: soft, non-tender, non-distended, normal bowel sounds, no palpable masses, no hepatomegaly, no splenomegaly, no bruit, no guarding, no rigidity, tender to palpation, distended, diminished bowl sounds, voluntary guarding Hosp A/P (1) GI bleed Code(s): K92.2 - GASTROINTESTINAL HEMORRHAGE, UNSPECIFIED Status: Acute Qualifiers: GI bleed type/associated pathology: unspecified gastrointestinal hemorrhage type Qualified Code(s): K92.2 - Gastrointestinal hemorrhage, unspecified (2) Pulmonary embolism Code(s): I26.99 - OTHER PULMONARY EMBOLISM WITHOUT ACUTE COR PULMONALE Status: Acute (3) Anemia due to acute blood loss Code(s): D62 - ACUTE POSTHEMORRHAGIC ANEMIA Status: Acute (4) CAD (coronary artery disease) Code(s): I25.10 - ATHSCL HEART DISEASE OF [place] CORONARY ARTERY W/O ANG PCTRS Status: Chronic Qualifiers: Coronary Disease-Associated Artery/Lesion type: [place] artery [place] vs. transplanted heart: [place] heart Associated angina: without angina Qualified Code(s): I25.10 - Atherosclerotic heart disease of [place] coronary artery without angina pectoris (5) ESRD (end stage renal disease) on dialysis Code(s): N18.6 - END STAGE RENAL DISEASE; Z99.2 - DEPENDENCE ON RENAL DIALYSIS Status: Chronic (6) HTN (hypertension) Code(s): I10 - ESSENTIAL (PRIMARY) HYPERTENSION Status: Chronic Qualifiers: Hypertension type: essential hypertension Qualified Code(s): I10 - Essential (primary) hypertension (7) PVD (peripheral vascular disease) Code(s): I73.9 - PERIPHERAL VASCULAR DISEASE, UNSPECIFIED Status: Chronic - Plan pt's CTA indicates posterior medial medial right lower lobe PE. Patient was on Eliquis however continues to have GI bleeds. She had an EGD done today which indicated a dieulafoy lesion lesser curvature of the proximal gastric body. Patient has been off of Eliquis for the past 3 days. Will get a lower extremity venous Dopplers if she does have DVT may be a candidate for IVC filter. She also has severe peripheral vascular disease given on arterial Dopplers. GI recommends against anticoagulation however given her recent PE this will be difficult. i spoke with gi in regards to her elevated trops and starting AC. she has no chest pain/sob or chest pressure. ekg no acute changes. i will start her on heparin without a initial bolus and consult cardio. she has transient hypoxia while she was getting her egd. she has had some cardiac complication under anesthesia in the past. I updated the pt and did call her family Miss Fidel who is her cousin and updated her too. 05/17 spoke with patient's daughter Esther phone number is [phone] and updated her about her mom's current condition. We will continue heparin for now we will check H&H later today. We will get an MRI brain since patient speech does appear more slow than baseline. CT head was negative. 05/18 patient was on anticoagulations given her elevated troponins. Will discontinue anticoagulations per body trimmer upholsterer recommendation. We will continue aspirin. We will continue to monitor H&H. Plan discussed with gastroenterology.
--- NOTE | 2020-05-18 16:01 | PRG ---
DATE OF SERVICE: 05/18/2020 SUBJECTIVE: Ms. Sullivan is on dialysis. She is without complaints. She denies any bowel movements. OBJECTIVE: VITAL SIGNS: Temperature is 98, pulse 70, respiratory 16, blood pressure is 115/50. ABDOMEN: Soft, nontender. GENERAL: She is awake, alert and oriented to person, place, and time. LABORATORY DATA: White count 4.3; hemoglobin 6.9, repeat was 7.1, yesterday was 7.3; platelets is 173. Sodium 139, potassium 3.6, BUN and creatinine 23 and 3.73. ASSESSMENT: 1. History of deep venous thrombosis, last admission. Pulmonary has seen the patient finally in that they were consulted just this admission. I have talked with Dr. Pena about that and he says the embolus was subsegmental 3 weeks ago and does not require further anticoagulation. If she has recurrent symptoms of pulmonary embolism, she will need a filter and possible re-anticoagulation. 2. Recent PE related to instrumentation of an AV fistula in the left arm which had clotted, has been abandoned now. She is going be dialyzed by a dialysis catheter until a right AV fistula can mature. 3. Congestive heart failure. 4. Chronic obstructive pulmonary disease. 5. Prior history of hepatitis C, treated. 6. Gastrointestinal bleed, treated endoscopically on 05/16 with no further bleeding. 7. 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 She required multiple transfusions until she could come off that medication. These are not controlled. These are not treatable AVMs in this in the small bowel. 8. History of recurrent respiratory failure and either need for intubation or bag-mask ventilation with any endoscopic intervention. 9. Severe congestive heart failure with AICD placement. 10. End-stage renal disease, on dialysis. RECOMMENDATIONS: 1. Continue PPI daily. If the patient show signs of acute bleeding, please do not hesitate to re-consult. 2. The patient needs to go back on blood thinners. I would be happy to re-evaluate, although she will have risk of bleeding, but probably not of acute hemorrhage that would run the risk of . My feeling is that if she needs to be on anticoagulation for the blood clot, to go ahead and do that as we can always stop it if she has acute bleeding or give her blood transfusion as needed. We will follow from a distance. We will sign off at this point in time. Dr. Pinto is on-call for the weekend. Please call if needed. Job ID: [id number]
[2020-05-18 17:51] LABS: Hemoglobin 8.8 g/dL (12.0-16.0); Platelet Count 150 thou/uL (130-400)
[2020-05-18] MEDS: Midodrine HCl 5 MG TAB PO SCH (21:28)
[2020-05-19 05:17] LABS: Elliptocytes MODERATE= 6-15 cells (100X) (0-1/hpf); Eosinophils 1 % (0-10); Hemoglobin 8.3 g/dL (12.0-16.0); Hypochromia SLIGHT = 6-15 cells (100X) (0-5/hpf); Lymphocytes 22 % (21-51); MDiff Complete? YES; Mean Corpuscular HGB CONC 33.8 g/dL (32.0-36.0); Mean Corpuscular Hemoglobin 32.5 pg (27.0-31.0); Mean Corpuscular Volume 96.2 fL (78.0-98.0); Mean Platelet Volume 7.8 fL (7.4-10.4); Monocytes 18 % (0-10); Neutrophil 58 % (42-75); Platelet Count 150 thou/uL (130-400); Platelet Morphology Comment Appears Adequate; RBC Distribution Width 21.2 % (11.5-14.5); Red Blood Cell (RBC) Count 2.55 mill/uL (4.20-5.40); Target Cells SLIGHT = 2-5 cells (100X) (0-1/hpf); White Blood Cell (WBC) Count 3.3 thou/uL (4.8-10.8)
[2020-05-19] MEDS: HYDROcodone/Acetaminophen 5/325 mg Tablet PO PRN ×2 (07:33→21:49)
[2020-05-19] MEDS: Mometasone 200 MCG/Formoterol 5 MCG 120 PUFF INHALER INH SCH ×2 (07:46→18:53)
[2020-05-19] MEDS: Aspirin 81 mg Enteric Coated Tablet PO SCH (09:26)
[2020-05-19] MEDS: Carvedilol 6.25 MG TAB PO SCH ×3 (09:26→21:49)
[2020-05-19] MEDS: Atorvastatin Calcium 10 MG TAB PO SCH (09:26)
[2020-05-19] MEDS: Pantoprazole 40 MG VIAL IVP SCH (09:26)
--- NOTE | 2020-05-19 10:36 | PRG ---
DATE OF SERVICE: 05/19/2020 SUBJECTIVE: Ms. Sullivan is a 65-year-old black female with ESRD, who was admitted for GI bleed. An upper GI endoscopy was done by Dr. Benavides on May 16, 2020, and finding of actively bleeding Dieulaf[place] lesion on the lesser curvature of the proximal gastric body was noted. Cauterization was done. Recommendation is to hold off any anticoagulation. No new complaints today. Feeling better. The patient did receive a blood transfusion yesterday with dialysis. No complaints of chest pain or shortness of breath. OBJECTIVE: VITAL SIGNS: Blood pressure 135/60, heart rate 71, respiratory rate 20, temperature 98.7, O2 saturation 94% on room air. GENERAL: The patient is awake, alert, comfortable, not in distress. SKIN: Adequate turgor. HEENT: She has pinkish conjunctivae. Anicteric sclerae. NECK: No neck mass. No carotid bruits. No JVD. CHEST: No deformities. LUNGS: Clear breath sounds. HEART: Normal sinus rhythm. No murmurs, gallops, or rubs. ABDOMEN: Globular, soft, nontender. No masses. EXTREMITIES: No edema, no deformities. MEDICATIONS: Medications of May 19, 2020. LABORATORY DATA: May 19, 2020, white count 3.3, hemoglobin 8.3. May 17, 2020, sodium 139, potassium 3.6, chloride 102, carbon dioxide 28, BUN 23, creatinine 3.73, glucose 108, calcium 8.9. ASSESSMENT AND PLAN: 1. Anemia/gastrointestinal bleed - status post upper GI endoscopy with cauterization of bleeding lesion. P.r.n. blood transfusion. We will start the patient on Epogen. 2. End-stage renal disease, stable, tolerating current hemodialysis regimen. Fluid removal as tolerated. There is no indication for any emergent hemodialysis today. 3. Status post pulmonary embolism - we will consider resumption of anticoagulation next week. Job ID: [id number]
--- NOTE | 2020-05-19 10:37 | EKG ---
Test Reason : Blood Pressure : / mmHG Vent. Rate : 090 BPM Atrial Rate : 090 BPM P-R Int : 192 ms QRS Dur : 090 ms QT Int : 368 ms P-R-T Axes : 070 -10 221 degrees QTc Int : 450 ms Normal sinus rhythm Left ventricular hypertrophy with repolarization abnormality Abnormal ECG Confirmed by PHYLICIA BRUNSON ([id number]), film editor supervisor HAN CASTILLO ([id number]) on 05/19/2020 10:37:09 AM Referred By: Confirmed By:PHYLICIA BRUNSON
[2020-05-19] MEDS ORDERED: EPOETIN ALFA-EPBX (ESRD) 4,000 UNIT/ML VIAL SC SCH (12:00)
--- NOTE | 2020-05-19 12:50 | PDOC.HOSPP ---
- Subjective Encounter Date: 05/19/20 Encounter Time: 10:45 Subjective: Patient up in bed denies any complaints. - Objective Vital Signs & Weight: Vital Signs (12 hours) Temp Pulse Resp BP BP Pulse Ox 05/19/20 12:00 97.9 F 74 20 113/52 L 05/19/20 09:26 135/60 05/19/20 08:00 10 L 05/19/20 07:41 98.7 F 71 20 135/60 94 L 05/19/20 03:14 99.3 F 71 16 123/58 L 95 Weight Weight 124 lb 12.8 oz Most Recent Monitor Data Heart Rate from ECG 82 NIBP 144/63 NIBP BP-Mean 75 Respiration from ECG 30 SpO2 99 I&O: 05/18/20 05/19/20 05/20/20 06:59 06:59 06:59 Intake Total 440 990 240 Output Total 100 400 Balance 340 590 240 Result Diagrams: 05/19/20 04:17 05/17/20 07:55 Hospitalist ROS - Review of Systems Cardiovascular: denies: chest pain, palpitations, orthopnea, paroxysmal noc. dyspnea, edema, light headedness, other Gastrointestinal: denies: nausea, vomiting, abdominal pain, diarrhea, constipat ion, melena, hematochezia, other Genitourinary: denies: dysuria, frequency, incontinence, hematuria, retention, other - Medication Medications: Active Medications Generic Name Dose Route Start Last Admin Trade Name Freq PRN Reason Stop Dose Admin Hydrocodone Bitart/Acetaminophen 1 tab 05/15/20 10:33 05/19/20 07:33 Hydrocodone/Acetaminophen 5/325 Mg Tablet PO 1 tab Q4H PRN Administration Moderate Pain (4-6) Aspirin 81 mg 05/18/20 09:00 05/19/20 09:26 Aspirin 81 Mg Enteric Coated Tablet PO 81 mg DAILY ALONZO Administration Atorvastatin Calcium 10 mg 05/16/20 09:00 05/19/20 09:26 Atorvastatin Calcium 10 Mg Tab PO 10 mg DAILY ALONZO Administration Carvedilol 6.25 mg 05/16/20 09:00 05/19/20 09:26 Carvedilol 6.25 Mg Tab PO 6.25 mg TID ALONZO Administration Midodrine 5 mg 05/16/20 21:00 05/18/20 21:28 Midodrine Hcl 5 Mg Tab PO 5 mg HS ALONZO Administration Mometasone Furoate/Formoterol Fumar 2 puff 05/15/20 18:30 05/19/20 07:46 Mometasone 200 Mcg/Formoterol 5 Mcg 120 Puff Inhaler INH 2 puff BID-RT ALONZO Administration Pantoprazole Sodium 40 mg 05/16/20 09:00 05/19/20 09:26 Pantoprazole 40 Mg Vial IVP 40 mg DAILY ALONZO Administration Sodium Chloride 10 ml 05/15/20 04:36 05/19/20 09:26 Flush - Normal Saline 10 Ml Syringe IVF 10 ml PRN PRN Administration Saline Flush Sodium Chloride 10 ml 05/15/20 11:00 05/19/20 09:26 Sodium Chloride 0.9% (Pf) 10 Ml Vial FS 10 ml PRN PRN Administration RECONSTITUTION - Exam Neck: negative: supple, symmetric, no JVD, no thyromegaly, no lymphadenopathy, no carotid bruit, JVD Heart: negative: RRR, no murmur, no gallops, no rubs, normal peripheral pulses, irregular, diminshed peripheral pulses, murmur present, II/IV, III/IV Respiratory: negative: CTAB, no wheezes, no rales, no ronchi, normal chest expansion, no tachypnea, normal percussion, rales, rhonchi, tachypneic, wheezes Gastrointestinal: negative: soft, non-tender, non-distended, normal bowel sounds, no palpable masses, no hepatomegaly, no splenomegaly, no bruit, no guarding, no rigidity, tender to palpation, distended, diminished bowl sounds, voluntary guarding Hosp A/P (1) GI bleed Code(s): K92.2 - GASTROINTESTINAL HEMORRHAGE, UNSPECIFIED Status: Acute Qualifiers: GI bleed type/associated pathology: unspecified gastrointestinal hemorrhage type Qualified Code(s): K92.2 - Gastrointestinal hemorrhage, unspecified (2) Pulmonary embolism Code(s): I26.99 - OTHER PULMONARY EMBOLISM WITHOUT ACUTE COR PULMONALE Status: Acute (3) Anemia due to acute blood loss Code(s): D62 - ACUTE POSTHEMORRHAGIC ANEMIA Status: Acute (4) CAD (coronary artery disease) Code(s): I25.10 - ATHSCL HEART DISEASE OF [place] CORONARY ARTERY W/O ANG PCTRS Status: Chronic Qualifiers: Coronary Disease-Associated Artery/Lesion type: [place] artery [place] vs. transplanted heart: [place] heart Associated angina: without angina Qualified Code(s): I25.10 - Atherosclerotic heart disease of [place] coronary artery without angina pectoris (5) ESRD (end stage renal disease) on dialysis Code(s): N18.6 - END STAGE RENAL DISEASE; Z99.2 - DEPENDENCE ON RENAL DIALYSIS Status: Chronic (6) HTN (hypertension) Code(s): I10 - ESSENTIAL (PRIMARY) HYPERTENSION Status: Chronic Qualifiers: Hypertension type: essential hypertension Qualified Code(s): I10 - Essential (primary) hypertension (7) PVD (peripheral vascular disease) Code(s): I73.9 - PERIPHERAL VASCULAR DISEASE, UNSPECIFIED Status: Chronic - Plan pt's CTA indicates posterior medial medial right lower lobe PE. Patient was on Eliquis however continues to have GI bleeds. She had an EGD done today which indicated a dieulafoy lesion lesser curvature of the proximal gastric body. Patient has been off of Eliquis for the past 3 days. Will get a lower extremity venous Dopplers if she does have DVT may be a candidate for IVC filter. She also has severe peripheral vascular disease given on arterial Dopplers. GI recommends against anticoagulation however given her recent PE this will be difficult. i spoke with gi in regards to her elevated trops and starting AC. she has no chest pain/sob or chest pressure. ekg no acute changes. i will start her on heparin without a initial bolus and consult cardio. she has transient hypoxia while she was getting her egd. she has had some cardiac complication under anesthesia in the past. I updated the pt and did call her family Miss Parra who is her cousin and updated her too. 05/17 spoke with patient's daughter Esther phone number is [phone] and updated her about her mom's current condition. We will continue heparin for now we will check H&H later today. We will get an MRI brain since patient speech does appear more slow than baseline. CT head was negative. 05/18 patient was on anticoagulations given her elevated troponins. Will discontinue anticoagulations per mortgage underwriter recommendation. We will continue aspirin. We will continue to monitor H&H. Plan discussed with gastroenterology. 05/19 we will continue to monitor for 1 more day if her H&H is stable in a.m. possible discharge. We will continue her aspirin.
--- NOTE | 2020-05-19 16:47 | EKG ---
Test Reason : Blood Pressure : / mmHG Vent. Rate : 090 BPM Atrial Rate : 090 BPM P-R Int : 218 ms QRS Dur : 090 ms QT Int : 400 ms P-R-T Axes : -19 -18 178 degrees QTc Int : 489 ms Sinus rhythm with 1st degree A-V block Left ventricular hypertrophy with repolarization abnormality Abnormal ECG When compared with ECG of 15-MAY-2020 02:35, (Unconfirmed) ST less depressed in Lateral leads T wave inversion no longer evident in Inferior leads T wave inversion less evident in Anterolateral leads Confirmed by DR. Nancie SUMMERS ([id number]) on 05/19/2020 4:46:58 PM Referred By: PIERRE Confirmed By:DR. Nancie SUMMERS
[2020-05-19] MEDS: Midodrine HCl 5 MG TAB PO SCH (21:49)
[2020-05-19] MEDS: Zolpidem Tartrate 5 MG TAB PO PRN (21:49)
[2020-05-20 04:58] LABS: Anion Gap 16 mmol/L (10-20); BUN (Urea Nitrogen) 20 mg/dL (9.8-20.1); Calc. Creatinine Clearance 11 mL/min (70-130); Calcium 9.6 mg/dL (7.8-10.44); Carbon Dioxide 27 mmol/L (23-31); Chloride 101 mmol/L (98-107); Estimated GFR-MDRD 11; Glucose 86 mg/dL (80-115); Sodium 140 mmol/L (136-145)
[2020-05-20 05:28] LABS: Band 2 % (5-11); Eosinophils 2 % (0-10); Hemoglobin 8.7 g/dL (12.0-16.0); Lymphocytes 24 % (21-51); MDiff Complete? YES; Mean Corpuscular HGB CONC 32.5 g/dL (32.0-36.0); Mean Corpuscular Hemoglobin 31.4 pg (27.0-31.0); Mean Corpuscular Volume 96.5 fL (78.0-98.0); Mean Platelet Volume 8.2 fL (7.4-10.4); Monocytes 18 % (0-10); Neutrophil 54 % (42-75); Platelet Count 156 thou/uL (130-400); Platelet Morphology Comment Appears Adequate; RBC Distribution Width 20.4 % (11.5-14.5); RBC Morphology Normal; Red Blood Cell (RBC) Count 2.77 mill/uL (4.20-5.40); White Blood Cell (WBC) Count 2.9 thou/uL (4.8-10.8)
[2020-05-20] MEDS: Mometasone 200 MCG/Formoterol 5 MCG 120 PUFF INHALER INH SCH ×2 (08:12→19:07)
[2020-05-20] MEDS: Atorvastatin Calcium 10 MG TAB PO SCH (09:33)
[2020-05-20] MEDS: Aspirin 81 mg Enteric Coated Tablet PO SCH (09:33)
[2020-05-20] MEDS: Carvedilol 6.25 MG TAB PO SCH ×3 (09:33→21:06)
[2020-05-20] MEDS: Pantoprazole 40 MG VIAL IVP SCH (09:34)
[2020-05-20] MEDS ORDERED: Acetaminophen/Codeine 30-300mg Tablet PO PRN (10:04)
--- NOTE | 2020-05-20 11:11 | PRG ---
DATE OF SERVICE: 05/20/2020 SERVICE: Renal Medicine. SUBJECTIVE: Ms. Sullivan is a 65-year-old black female, who was admitted for symptomatic anemia, GI bleed, and being followed by the Renal Service for her maintenance hemodialysis. She voices no new complaints today. No evidence of acute GI bleed most recently. No complaints of chest pain or shortness of breath. OBJECTIVE: VITAL SIGNS: Blood pressure 133/63, heart rate 70, respiratory rate 16, temperature 98.5, and O2 saturation 94%. GENERAL: Awake, supine, comfortable, not in distress. SKIN: Adequate turgor. HEENT: Slightly pale conjunctivae. Anicteric sclerae. No neck mass. No carotid bruits. No JVD. CHEST: No deformities. LUNGS: Clear breath sounds. No wheezing. No crackles. HEART: Normal sinus rhythm. No murmurs. No gallops. No rubs. ABDOMEN: Globular, soft, nontender. No masses. EXTREMITIES: No edema. No deformities. MEDICATIONS: May 20, 2020, were reviewed. LABORATORY DATA: May 20, 2020: White count 2.9, hemoglobin 8.7. Sodium 140, potassium 4, chloride 101, carbon dioxide 27, BUN 20, creatinine 4.65, glucose 86, and calcium 9.6. ASSESSMENT AND PLAN: 1. Anemia - p.r.n. blood transfusion, continuing weekly Epogen regimen. 2. Status post pulmonary embolism, asymptomatic. Currently, anticoagulation on hold due to the recent gastrointestinal bleed. 3. Status post gastrointestinal bleed - cauterization of her gastric gastrointestinal lesion. Doing well. GI following. 4. End-stage renal disease, stable, tolerating current hemodialysis regimen, using no heparin with dialysis. Fluid removal as tolerated. No indication for any emergent dialysis today. Job ID: [id number]
[2020-05-20] MEDS ORDERED: Gabapentin 100 MG CAP PO SCH ×2 (12:30→15:00)
--- NOTE | 2020-05-20 13:41 | PDOC.HOSPP ---
- Subjective Encounter Date: 05/20/20 Encounter Time: 09:40 Subjective: Patient up in bed crying states that her feet are still hurting. Spoke with physical therapy who states that she will need a walker. - Objective Vital Signs & Weight: Vital Signs (12 hours) Temp Pulse Pulse Pulse Resp BP BP 05/20/20 11:15 98.7 F 69 18 05/20/20 09:45 70 77 159/70 H 05/20/20 09:33 146/67 H 05/20/20 07:25 98.5 F 70 16 05/20/20 04:00 98.3 F 69 18 BP BP Pulse Ox 05/20/20 11:15 134/63 94 L 05/20/20 09:45 173/73 H 05/20/20 09:33 05/20/20 07:25 133/63 94 L 05/20/20 04:00 128/64 97 Weight Weight 124 lb 1.6 oz Most Recent Monitor Data Heart Rate from ECG 82 NIBP 144/63 NIBP BP-Mean 75 Respiration from ECG 30 SpO2 99 I&O: 05/19/20 05/20/20 05/21/20 06:59 06:59 06:59 Intake Total 990 480 Output Total 400 Balance 590 480 Result Diagrams: 05/20/20 03:53 05/20/20 03:53 Hospitalist ROS - Review of Systems Cardiovascular: denies: chest pain, palpitations, orthopnea, paroxysmal noc. dyspnea, edema, light headedness, other Gastrointestinal: denies: nausea, vomiting, abdominal pain, diarrhea, constipation, melena, hematochezia, other Genitourinary: denies: dysuria, frequency, incontinence, hematuria, retention, other Musculoskeletal: reports: foot pain - Medication Medications: Active Medications Generic Name Dose Route Start Last Admin Trade Name Freq PRN Reason Stop Dose Admin Hydrocodone Bitart/Acetaminophen 1 tab 05/15/20 10:33 05/19/20 21:49 Hydrocodone/Acetaminophen 5/325 Mg Tablet PO 1 tab Q4H PRN Administration Moderate Pain (4-6) Aspirin 81 mg 05/18/20 09:00 05/20/20 09:33 Aspirin 81 Mg Enteric Coated Tablet PO 81 mg DAILY ALONZO Administration Atorvastatin Calcium 10 mg 05/16/20 09:00 05/20/20 09:33 Atorvastatin Calcium 10 Mg Tab PO 10 mg DAILY ALONZO Administration Carvedilol 6.25 mg 05/16/20 09:00 05/20/20 09:33 Carvedilol 6.25 Mg Tab PO 6.25 mg TID ALONZO Administration Epoetin Johnson-epbx 7,500 unit 05/19/20 12:00 05/19/20 14:49 Epoetin Johnson-Epbx (Esrd) 4,000 Unit/Ml Vial SC 7,500 unit Q7D ALONZO Administration Gabapentin 200 mg 05/20/20 12:30 05/20/20 12:36 Gabapentin 100 Mg Cap PO 05/20/20 15:00 200 mg NOW ALONZO Administration Midodrine 5 mg 05/16/20 21:00 05/19/20 21:49 Midodrine Hcl 5 Mg Tab PO 5 mg HS ALONZO Administration Mometasone Furoate/Formoterol Fumar 2 puff 05/15/20 18:30 05/20/20 08:12 Mometasone 200 Mcg/Formoterol 5 Mcg 120 Puff Inhaler INH 2 puff BID-RT ALONZO Administration Pantoprazole Sodium 40 mg 05/16/20 09:00 05/20/20 09:34 Pantoprazole 40 Mg Vial IVP 40 mg DAILY ALONZO Administration Sodium Chloride 10 ml 05/15/20 04:36 05/20/20 09:34 Flush - Normal Saline 10 Ml Syringe IVF 10 ml PRN PRN Administration Saline Flush Sodium Chloride 10 ml 05/15/20 11:00 05/19/20 09:26 Sodium Chloride 0.9% (Pf) 10 Ml Vial FS 10 ml PRN PRN Administration RECONSTITUTION Zolpidem Tartrate 5 mg 05/15/20 10:33 05/19/20 21:49 Zolpidem Tartrate 5 Mg Tab PO 5 mg HSPRN PRN Administration Insomnia - Exam Neck: negative: supple, symmetric, no JVD, no thyromegaly, no lymphadenopathy, no carotid bruit, JVD Heart: negative: RRR, no murmur, no gallops, no rubs, normal peripheral pulses, irregular, diminshed peripheral pulses, murmur present, II/IV, III/IV Respiratory: negative: CTAB, no wheezes, no rales, no ronchi, normal chest expansion, no tachypnea, normal percussion, rales, rhonchi, tachypneic, wheezes Gastrointestinal: negative: soft, non-tender, non-distended, normal bowel sounds, no palpable masses, no hepatomegaly, no splenomegaly, no bruit, no guarding, no rigidity, tender to palpation, distended, diminished bowl sounds, voluntary guarding Hosp A/P (1) GI bleed Code(s): K92.2 - GASTROINTESTINAL HEMORRHAGE, UNSPECIFIED Status: Acute Qualifiers: GI bleed type/associated pathology: unspecified gastrointestinal hemorrhage type Qualified Code(s): K92.2 - Gastrointestinal hemorrhage, unspecified (2) Pulmonary embolism Code(s): I26.99 - OTHER PULMONARY EMBOLISM WITHOUT ACUTE COR PULMONALE Status: Acute (3) Anemia due to acute blood loss Code(s): D62 - ACUTE POSTHEMORRHAGIC ANEMIA Status: Acute (4) CAD (coronary artery disease) Code(s): I25.10 - ATHSCL HEART DISEASE OF [place] CORONARY ARTERY W/O ANG PCTRS Status: Chronic Qualifiers: Coronary Disease-Associated Artery/Lesion type: [place] artery [place] vs. transplanted heart: [place] heart Associated angina: without angina Qualified Code(s): I25.10 - Atherosclerotic heart disease of [place] coronary artery without angina pectoris (5) ESRD (end stage renal disease) on dialysis Code(s): N18.6 - END STAGE RENAL DISEASE; Z99.2 - DEPENDENCE ON RENAL DIALYSIS Status: Chronic (6) HTN (hypertension) Code(s): I10 - ESSENTIAL (PRIMARY) HYPERTENSION Status: Chronic Qualifiers: Hypertension type: essential hypertension Qualified Code(s): I10 - Essential (primary) hypertension (7) PVD (peripheral vascular disease) Code(s): I73.9 - PERIPHERAL VASCULAR DISEASE, UNSPECIFIED Status: Chronic - Plan pt's CTA indicates posterior medial medial right lower lobe PE. Patient was on Eliquis however continues to have GI bleeds. She had an EGD done today which indicated a dieulafoy lesion lesser curvature of the proximal gastric body. Patient has been off of Eliquis for the past 3 days. Will get a lower extremity venous Dopplers if she does have DVT may be a candidate for IVC filter. She also has severe peripheral vascular disease given on arterial Dopplers. GI recommends against anticoagulation however given her recent PE this will be difficult. i spoke with gi in regards to her elevated trops and starting AC. she has no chest pain/sob or chest pressure. ekg no acute changes. i will start her on heparin without a initial bolus and consult cardio. she has transient hypoxia while she was getting her egd. she has had some cardiac complication under anesthesia in the past. I updated the pt and did call her family Miss Parra who is her cousin and updated her too. 05/17 spoke with patient's daughter Esther phone number is [phone] and updated her about her mom's current condition. We will continue heparin for now we will check H&H later today. We will get an MRI brain since patient speech does appear more slow than baseline. CT head was negative. 05/18 patient was on anticoagulations given her elevated troponins. Will discontinue anticoagulations per part time receptionist recommendation. We will continue aspirin. We will continue to monitor H&H. Plan discussed with gastr oenterology. 05/19 we will continue to monitor for 1 more day if her H&H is stable in a.m. possible discharge. We will continue her aspirin. 05/20 patient is complaining of bilateral feet burning pain. We will start her on some gabapentin and some as needed Tylenol 3 to see if that helps. PT worked with patient stated that she will need home health and a walker for ambulation. H&H has been stable.
[2020-05-20] MEDS: HYDROcodone/Acetaminophen 5/325 mg Tablet PO PRN ×2 (15:21→21:07)
[2020-05-20 18:52] LABS: Hemoglobin 9.1 g/dL (12.0-16.0); Platelet Count 160 thou/uL (130-400)
[2020-05-20] MEDS: Midodrine HCl 5 MG TAB PO SCH (21:06)
[2020-05-20] MEDS: Zolpidem Tartrate 5 MG TAB PO PRN (21:06)
[2020-05-21 05:14] LABS: Anion Gap 16 mmol/L (10-20); BUN (Urea Nitrogen) 25 mg/dL (9.8-20.1); Calc. Creatinine Clearance 9 mL/min (70-130); Calcium 8.9 mg/dL (7.8-10.44); Carbon Dioxide 23 mmol/L (23-31); Chloride 102 mmol/L (98-107); Estimated GFR-MDRD 9; Glucose 86 mg/dL (80-115); Potassium 4.9 mmol/L (3.5-5.1); Sodium 136 mmol/L (136-145)
[2020-05-21 05:16] LABS: Band 4 % (5-11); Eosinophils 6 % (0-10); Hemoglobin 8.7 g/dL (12.0-16.0); Hypochromia SLIGHT = 6-15 cells (100X) (0-5/hpf); Lymphocytes 32 % (21-51); MDiff Complete? YES; Mean Corpuscular HGB CONC 32.9 g/dL (32.0-36.0); Mean Corpuscular Hemoglobin 32.1 pg (27.0-31.0); Mean Corpuscular Volume 97.4 fL (78.0-98.0); Mean Platelet Volume 8.6 fL (7.4-10.4); Monocytes 8 % (0-10); Neutrophil 50 % (42-75); Platelet Count 141 thou/uL (130-400); Platelet Morphology Comment Appears Adequate; RBC Distribution Width 20.1 % (11.5-14.5); Red Blood Cell (RBC) Count 2.72 mill/uL (4.20-5.40); White Blood Cell (WBC) Count 3.3 thou/uL (4.8-10.8)
[2020-05-21] MEDS: Mometasone 200 MCG/Formoterol 5 MCG 120 PUFF INHALER INH SCH (08:08)
--- NOTE | 2020-05-21 08:56 | PRG ---
DATE OF SERVICE: 05/21/2020 SUBJECTIVE: Ms. Sullivan is a 65-year-old black female with ESRD, on maintenance hemodialysis, and admitted for a GI bleed. She has undergone upper GI endoscopy with finding of an active GI bleed and with subsequent cauterization. Anticoagulation is on hold for a week. No new complaints today. She is currently undergoing hemodialysis. The patient denies any chest pain or shortness of breath. OBJECTIVE: VITAL SIGNS: Blood pressure 131/60, heart rate 73, respiratory rate 16, temperature 97.4, and O2 saturation 93%. GENERAL: The patient is awake, alert, comfortable, not in distress. SKIN: Adequate turgor. HEENT: Pinkish conjunctivae. Anicteric sclerae. NECK: No neck mass. No carotid bruits. No JVD. CHEST: No deformities. LUNGS: Clear breath sounds. HEART: Normal sinus rhythm. No murmur. No gallops. No rubs. ABDOMEN: Globular. Soft and nontender. No masses. EXTREMITIES: No edema. No deformities. MEDICATIONS: Of May 21, 2020, reviewed. LABORATORY DATA: Of May 21, 2020; white count 3.3, hemoglobin 8.7, sodium 136, potassium 4.9, chloride 102, carbon dioxide 23, BUN 25, creatinine 5.97, glucose 86, and calcium 8.9. ASSESSMENT AND PLAN: 1. End-stage renal disease, stable, tolerating current hemodialysis regimen. Fluid removal only as tolerated. 2. Anemia, on weekly Epogen. Off anticoagulation until the end of this week where we may consider resuming Eliquis 2.5 mg tablet b.i.d. 3. Status post gastrointestinal bleed, stable. Status post upper gastrointestinal endoscopy with cauterization of gastrointestinal bleeding lesion. Agree with current management. Job ID: [id number]
[2020-05-21] MEDS ORDERED: Heparin 10,000 UNITS/ 10 ML VIAL ONE (09:21)
--- NOTE | 2020-05-21 10:03 | PRG ---
DATE OF SERVICE: 05/21/2020 SUBJECTIVE: I have reviewed the case and discussed it with the patient in detail today at her bedside. Essentially, this patient was admitted for on 04/27 from a dialysis vascular access center, where she was getting her fistula cleaned out and became acutely short of breath afterwards. She was noted on a CT pulmonary angiogram immediately afterward to have a subsegmental pulmonary embolism on the right. She was placed on Eliquis. Pulmonary was not consulted during that admission. She was sent home with plans to anticoagulate her for 6 months. She was readmitted to the hospital on 05/15 with blood in her stool. She was scoped by GI and found to have a lesion in her stomach consistent with a Dieulafoy lesion which was cauterized, with recommendations to hold anticoagulation for 1 week. We are now faced with the decision what to do with her anticoagulation. PHYSICAL EXAMINATION: Today; VITAL SIGNS: Temperature 97.4, pulse 73, respirations 16, O2 sats 93%, and blood pressure 131/60. HEENT: Unremarkable. NECK: No adenopathy or JVD. LUNGS: Clear. CARDIAC: S1 and S2. Regular. ABDOMEN: Soft. EXTREMITIES: No edema. LABORATORY DATA: Hemoglobin 8.7, hematocrit 26.5, and platelet count 141. Sodium 136, potassium 4.9, chloride 102, CO2 of 23, BUN 25, creatinine 5.9, and glucose 86. ASSESSMENT: This patient has clearly had a recent pulmonary embolism, which was provoked by an intravascular procedure for declotting an arteriovenous shunts. She also has a history of remote pulmonary embolism back in the 1970s. Unfortunately, she carries a continued risk for GI bleeding. However, my opinion would be that she needs to be anticoagulated for at least 3 months. This would be done most safely with an agent that is reversible such as warfarin. I would not be in favor of IVC filter placement as that is not true treatment for the clot. RECOMMENDATION: Would be to withhold anticoagulation for [address] Benavides's recommendation and then restart her on anticoagulation with Coumadin to control INR 2 to 2.5, and give total duration of anticoagulation for 3 months. Job ID: [id number]
[2020-05-21] MEDS ORDERED: Pregabalin 50 MG CAP PO SCH (11:00)
[2020-05-21] MEDS: Atorvastatin Calcium 10 MG TAB PO SCH (11:29)
[2020-05-21] MEDS: Aspirin 81 mg Enteric Coated Tablet PO SCH (11:29)
[2020-05-21] MEDS: Carvedilol 6.25 MG TAB PO SCH (11:30)
[2020-05-21] MEDS ORDERED: Gabapentin 100 MG CAP PO SCH (15:00)
[2020-05-21 15:47] VITALS: BP 134/62; TEMP 98.7
--- NOTE | 2020-05-22 07:10 | DIS ---
DATE OF ADMISSION: 05/15/2020 DATE OF DISCHARGE: 05/21/2020 DISCHARGE DIAGNOSES: As of the followin. Acute blood loss anemia. 2. End-stage renal disease, on dialysis. 3. Gastrointestinal bleed. 4. Pulmonary embolism. 5. Coronary artery disease. 6. Peripheral vascular disease. 7. Hypertension. HOSPITAL COURSE: The patient is a 65-year-old female who initially presented to the hospital with complaints of shortness of breath and bilateral lower extremity pain. At this time, she was also noted to have a low H and H. She has been on Eliquis given her recent pulmonary embolism finding. The patient at this time was transfused 2 units of PRBCs. Her H and H were monitored. GI was consulted and her Eliquis was held. The patient did undergo an endoscopy. Her previous endoscopies were complicated with anesthesia complication given her significant CAD. She did have some transient hypoxia while she was in EGD and however recovered quickly. She was noted to have a Dieulafoy's lesion in the lesser curvature of the proximal gastric body. She underwent a bipolar cautery with good hemostasis. At this time, the recommendation was to continue the IV Protonix and recommended minimizing the use of anticoagulation. At this time, post procedure, she was noted to have elevated troponins; however, she had no chest pain, her EKG was unchanged. She was put on transient heparin and was watched. I did discuss this with the milk delivery driver. Pulmonary was also consulted for recommendations for the PE, which was attributed most likely to the declotting of her fistula. Pulmonary recommended to hold off on anticoagulations for a week and then recommends to start the patient on warfarin to keep INR between 2 to 2.5 for at least three months given her previous history of embolism and monitor H and H. Cardiology also was consulted given her elevated troponins. However, there was no intervention that was done. She did have lower extremity venous Dopplers, which were negative and of course there was no indications for a filter since her PE was contributed to the declotting of her fistula. The patient also had lower extremity arterial Dopplers, which indicated that she has significant atherosclerotic vascular disease. I have asked her to follow up with CV surgery as outpatient. HOME MEDICATIONS: 1. Atorvastatin 10 mg daily. 2. Aspirin 81 mg daily. 3. Tylenol 650 as needed. 4. Midodrine 5 mg at bedtime. 5. Carvedilol 6.25 t.i.d. 6. Pantoprazole 40 mg twice daily. 7. Lyrica 75 mg daily. PHYSICAL EXAMINATION: VITAL SIGNS: On discharge, temperature of 98.7, 71, 16, 94% on room air, 134/62. GENERAL: She is awake, alert, and oriented x3. Does not appear in distress. CV: S1, S2 present. No murmurs, rubs, gallops. ABDOMEN: Soft, nontender. Bowel sounds are present x2. She will be requiring home health for PT. The patient was educated on smoking session. I have discussed this hospital course and also her medical issues with her daughter and also her cousin. The patient does have significant comorbidities. She will require a followup with H and H. I did touch bases with through to her primary care doctor in regard to following up to start the warfarin and I have notified this to the patient that she will need to follow up with her primary to get anticoagulations for the next three months. The patient understands. Job ID: [id number]
== END 2020-05-21 16:50 | disposition home health service (06) | DRG 377 ==
LOC: ERS 02:14 → CCU 04:25 → 2NO 06:48
PROVIDERS: ADMIT Internal Medicine Nephrology; ATTEND Internal Medicine Nephrology
PROC: 0W3P8ZZ Control Bleeding in Gastrointestinal Tract, Via Natural or Artificial Opening Endoscopic (ICD-10-PCS; principal; 2020-05-16)
PROC: 5A1D70Z Performance of Urinary Filtration, Intermittent, Less than 6 Hours Per Day (ICD-10-PCS; 2020-05-16)
PROC: 5A1D70Z Performance of Urinary Filtration, Intermittent, Less than 6 Hours Per Day (ICD-10-PCS; 2020-05-18)
PROC: 30233N1 Transfusion of Nonautologous Red Blood Cells into Peripheral Vein, Percutaneous Approach (ICD-10-PCS; 2020-05-18)
PROC: 5A1D70Z Performance of Urinary Filtration, Intermittent, Less than 6 Hours Per Day (ICD-10-PCS; 2020-05-21)
DX: K31.82 Dieulafoy lesion (hemorrhagic) of stomach and duodenum (principal); N18.6 End stage renal disease; I26.99 Other pulmonary embolism without acute cor pulmonale; D62 Acute posthemorrhagic anemia; I13.2 Hypertensive heart and chronic kidney disease with heart failure and with stage 5 chronic kidney disease, or end stage renal disease; I50.22 Chronic systolic (congestive) heart failure; N25.81 Secondary hyperparathyroidism of renal origin; I25.10 Atherosclerotic heart disease of native coronary artery without angina pectoris; I73.9 Peripheral vascular disease, unspecified; I07.1 Rheumatic tricuspid insufficiency; Z20.828 Contact with and (suspected) exposure to other viral communicable diseases; I27.20 Pulmonary hypertension, unspecified; D63.1 Anemia in chronic kidney disease; J44.9 Chronic obstructive pulmonary disease, unspecified; F17.210 Nicotine dependence, cigarettes, uncomplicated; Z95.5 Presence of coronary angioplasty implant and graft; Z95.0 Presence of cardiac pacemaker; Z90.49 Acquired absence of other specified parts of digestive tract; Z88.6 Allergy status to analgesic agent; Z88.0 Allergy status to penicillin; Z79.82 Long term (current) use of aspirin; Z79.01 Long term (current) use of anticoagulants; Z79.899 Other long term (current) drug therapy
CPT/HCPCS: 36415; 36416; 36430; 36556; 51701; 70450; 72170; 80048; 80053; 81003; 81015; 82553; 83605; 83690; 83735; 84443; 84484; 85025; 85730; 86850; 86900; 86901; 87040; 87149; 87635; 90935; 93005; 93010; 93923; 93970; 94664; 96374; C9113; G0257; J1644; J2704; P9016; Q5105; U0003

== ENCOUNTER 2020-05-28 07:49 | Emergency (ER) | payer MEDICARE, OTHER ==
[2020-05-28] MEDS ORDERED: HYDROcodone/Acetaminophen 5/325 mg Tablet ONE (08:38)
== END 2020-05-28 08:53 | disposition home or self-care (01) ==
LOC: ERS 07:49
DX: I73.9 Peripheral vascular disease, unspecified (principal); I13.2 Hypertensive heart and chronic kidney disease with heart failure and with stage 5 chronic kidney disease, or end stage renal disease; I50.9 Heart failure, unspecified; N18.6 End stage renal disease; Z99.2 Dependence on renal dialysis; J45.909 Unspecified asthma, uncomplicated; D64.9 Anemia, unspecified; F17.210 Nicotine dependence, cigarettes, uncomplicated; Z79.899 Other long term (current) drug therapy; Z79.82 Long term (current) use of aspirin; Z79.01 Long term (current) use of anticoagulants
CPT/HCPCS: 94760

== ENCOUNTER 2020-05-30 07:52 | Inpatient (IN) | payer MEDICARE, OTHER ==
[2020-05-30] MEDS ORDERED: Dextrose 50% Abboject 50 ML SYRINGE ONE ×2 (08:05→13:45)
[2020-05-30] MEDS ORDERED: Cefepime 2 GM VIAL ONE (08:29)
[2020-05-30] MEDS ORDERED: Norepinephrine 8 MG/0.9% NS 0 ML ONE (08:41)
[2020-05-30] MEDS ORDERED: Pantoprazole 40 MG VIAL ONE (08:41)
[2020-05-30 08:43] LABS: Bicarbonate (HCO3v) 22.6 mmol/L (22.0-28.0); CO2 Tension (PvCO2) 35.7 mmHg (40.0-50.0); Calcium, Ionized 0.95 mmol/L (1.15-1.33); Chloride 101 mmol/L (98-107); Glucose 41 mg/dL (80-115); Hemoglobin - Calc 3.5 g/dL (12.0-16.0); Lactate 8.47 mmol/L (0.50-2.20); Potassium 3.6 mmol/L (3.5-5.1); Sodium 134 mmol/L (138-145); T. Carbon Dioxide 23.7 mmol/L (22.0-28.0); vO2 Saturation-calc 99.4 % (60.0-85.0)
[2020-05-30] MEDS ORDERED: HUMAN PROTHROMBIN COMPLX IV SCH (08:45)
[2020-05-30] MEDS ORDERED: Pantoprazole 80 MG, Admixture Fee 1 EACH in Sodium Chloride 0.9% 100 ML IVPB SCH (08:45)
[2020-05-30] MEDS ORDERED: Vancomycin 1.5 GRAM/300 ML BAG 1.5 GM in Premix Bag 1 BAG IVPB SCH (08:45)
[2020-05-30] MEDS ORDERED: ADMIXTURE FEE IV SCH (08:45)
--- NOTE | 2020-05-30 08:48 | RAD ---
EXAM: CHEST ONE VIEW HISTORY: Altered mental status, near-syncope. COMPARISON: 05/02/2020 FINDINGS: Right subclavian tunneled hemodialysis catheter and left subclavian dual lead cardiac pacemaking kieran ce remain in place. The left-sided vascular catheter has been removed. The heart is enlarged. Vascular stent overlies right cardiac border. Vascular calcifications are again seen in the thoracic aorta. Pulmonary vasculature is within normal limits. There are linear densities seen at the right lung base which could be related to atelectasis or scarring. Mild elevation right hemidiaphragm is pr esent. The lungs are otherwise clear. Vascular stent overlies left upper arm. IMPRESSION: 1. No acute cardiopulmonary process. 2. Linear density right lung base likely related to atelectasis versus scarring. 3. Cardiomegaly.
[2020-05-30 08:54] LABS: Hemoglobin 4.2 g/dL (12.0-16.0); Mean Corpuscular HGB CONC 33.6 g/dL (32.0-36.0); Mean Corpuscular Hemoglobin 33.2 pg (27.0-31.0); Mean Corpuscular Volume 98.7 fL (78.0-98.0); Mean Platelet Volume 7.8 fL (7.4-10.4); Platelet Count 137 thou/uL (130-400); RBC Distribution Width 22.2 % (11.5-14.5); Red Blood Cell (RBC) Count 1.28 mill/uL (4.20-5.40); White Blood Cell (WBC) Count 5.9 thou/uL (4.8-10.8)
[2020-05-30 08:57] LABS: INR-International Normal Ratio 1.8; PTT 46.5 sec (22.9-36.1); Prothrombin Time 21.7 sec (12.0-14.7)
[2020-05-30] MEDS ORDERED: Phytonadione 10 MG/ML AMP SLOW IVP SCH (09:00)
[2020-05-30 09:02] LABS: Bilirubin Negative (Negative); Blood, Urine Moderate (Negative); Clarity Clear (Clear); Glucose, Urine (Dipstick) Negative (Negative); Ketone, Urine Negative (Negative); Leukocyte Trace (Negative); Nitrite Negative (Negative); Protein, Urine (Dipstick) 30 mg/dL (Neg-Trace); Urobilinogen 0.2 mg/dL (Less than 2); pH, Urine 5.5 (5.0-9.0)
[2020-05-30 09:03] LABS: Other Microscopic Description Less than 2 mL rec'd
[2020-05-30] MEDS ORDERED: Fentanyl 100 MCG/2 ML VIAL ONE ×2 (09:09→09:37)
[2020-05-30 09:10] LABS: Bacteria/HPF Rare-Few HPF (None Seen); RBC/HPF 0-3 HPF (0-3); Squamous Epithelial 0-3 HPF (0-3); WBC/HPF 0-3 HPF (0-3)
[2020-05-30 09:12] LABS: ALT (SGPT) 21 U/L (8-55); AST (SGOT) 51 U/L (5-34); Albumin 2.5 g/dL (3.4-4.8); Alkaline Phosphatase 41 U/L (40-110); Anion Gap 27 mmol/L (10-20); BUN (Urea Nitrogen) 45 mg/dL (9.8-20.1); Bilirubin, Total 0.5 mg/dL (0.2-1.2); Calc. Creatinine Clearance 0 mL/min (70-130); Calcium 8.4 mg/dL (7.8-10.44); Carbon Dioxide 18 mmol/L (23-31); Chloride 97 mmol/L (98-107); Estimated GFR-MDRD 17; Globulin 2.3 g/dL (2.4-3.5); Potassium 3.8 mmol/L (3.5-5.1); Protein, Total 4.8 g/dL (6.0-8.3); Sodium 138 mmol/L (136-145)
[2020-05-30 09:18] LABS: #Lymphocytes 0.8 thou/uL (1.20-3.40); #Monocytes 0.3 thou/uL (0.11-0.59); #Neutrophils 4.8 thou/uL (1.40-6.50); %Basophils 0.2 % (0.0-1.0); %Eosinophils 0.2 % (0.0-10.0); %Lymphocytes 13.2 % (21.0-51.0); %Neutrophils 81.4 % (42.0-75.0)
[2020-05-30 09:19] LABS: Reflex for Review?? YES
[2020-05-30 09:20] LABS: Anisocytosis MODERATE=16-30 cells (100X) (0-5/hpf); Glucose 48 mg/dL (80-115); MDiff Complete? YES; Platelet Morphology Comment Appears Adequate; Polychromasia SLIGHT = 2-3 cells (100X) (0-2/hpf)
[2020-05-30 09:54] LABS: CKMB 40.2 ng/mL (0-6.6)
[2020-05-30] MEDS ORDERED: Calcium Gluc 4.6 MEQ/10 ML (100 MG/ML) ONE (10:27)
--- NOTE | 2020-05-30 10:47 | PDOC.HHP ---
Hospitalist HPI - History of Present Illness Altered mental state History of Present Illness: This is 65-year-old female patient history of ESRD, pulmonary embolism and previous GI bleed who presents today with recurrent GI bleed with altered mental status with presyncope. Of note she was recently seen in the hospital after she had a provoked DVT from her graft site and was managed on anticoagulation. 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 Today she was at dialysis and was noted to be hypotensive blood pressure around 50/20 with melanotic stools with altered mental state. She was referred here and hemoglobin checked on arrival was 4.2. She was hypotensive with BP 74/44, pulse 54 respiratory rate 19 and hypothermic. Temperature was 96.8. She was also hypoglycemic with blood sugar of 29. Labs showed troponin of 0.24, CK-MB 40.0, WBC 5.9, platelets 137, creatinine 3.37, anion gap 1221, lactate 9.8, INR 1.8 In the ED she was started on Protonix IV drip, Kcentra, vancomycin and cefepime, dextrose 50-50 then D5 normal saline. Her chair finisher gastroenterology were consulted. Given her low blood pressures a left femoral central line was placed. She was also started on blood tr ansfusion and receiving second unit at the time of my evaluation with improvement in her maps above 65. Hospitalist team consulted for admission. Hospitalist ROS - Review of Systems ROS unobtainable: due to mental status Hospitalist History - Past Medical History Cardiac: reports: CAD, HTN Heme/Onc: reports: Anemia NOS Other Medical History: ESRD, pulmonary embolism, GI bleed - Past Surgical History Other Surgical History: AICD placement, cardiac stent placement, dialysis access, hemorrhoidectomy, bilateral carotid endarterectomy, Cholecystectomy - Family History Other Family History: None of significance - Social History Smoking Status: Former smoker Alcohol: reports: None, Occassional Drugs: reports: none Living Situation: With Family - Exam General Appearance: ill appearing General - other findings: Confused, not answering questions appropriately. Eye - other findings: Conjunctival pallor, no scleral icterus. Heart: RRR, no murmur, no gallops, no rubs Respiratory: no wheezes, no rales, no ronchi Gastrointestinal: soft, non-distended, normal bowel sounds, no palpable masses Gastrointestinal - other findings: Melanotic stools in perineal region Extremities: no cyanosis, no clubbing, no edema Extremities - other findings: Central line left groin, Neurological - other findings: Moves all limbs spontaneously. No apparent deficit Psychiatric - other findings: Allergic patient but not place and time Hospitalist Results - Labs Result Diagrams: 05/30/20 17:04 05/30/20 08:30 Lab results: WBC 5.9 thou/uL (4.8-10.8) 05/30/20 08:30 Hgb 4.2 g/dL (12.0-16.0) L* 05/30/20 08:30 Hct 12.6 % (36.0-47.0) L* 05/30/20 08:30 MCV 98.7 fL (78.0-98.0) H 05/30/20 08:30 Plt Count 137 thou/uL (130-400) 05/30/20 08:30 Neutrophils % 81.4 % (42.0-75.0) H 05/30/20 08:30 VBG pCO2 35.7 mmHg (40.0-50.0) L 05/30/20 08:38 VBG pO2 158.3 mmHg (35.0-45.0) H 05/30/20 08:38 Sodium 138 mmol/L (136-145) 05/30/20 08:30 Potassium 3.8 mmol/L (3.5-5.1) 05/30/20 08:30 Chloride 97 mmol/L (98-107) L 05/30/20 08:30 Carbon Dioxide 18 mmol/L (23-31) L 05/30/20 08:30 BUN 45 mg/dL (9.8-20.1) H 05/30/20 08:30 Creatinine 3.37 mg/dL (0.6-1.1) H 05/30/20 08:30 Glucose 48 mg/dL (80-115) L* 05/30/20 08:30 Lactic Acid 9.8 mmol/L (0.5-2.2) H* 05/30/20 08:30 Calcium 8.4 mg/dL (7.8-10.44) 05/30/20 08:30 Total Bilirubin 0.5 mg/dL (0.2-1.2) 05/30/20 08:30 AST 51 U/L (5-34) H 05/30/20 08:30 ALT 21 U/L (8-55) 05/30/20 08:30 Alkaline Phosphatase 41 U/L (40-110) 05/30/20 08:30 CK-MB (CK-2) 40.2 ng/mL (0-6.6) H* 05/30/20 08:30 Troponin I 0.244 ng/mL (< 0.028) H 05/30/20 08:30 Serum Total Protein 4.8 g/dL (6.0-8.3) L 05/30/20 08:30 Albumin 2.5 g/dL (3.4-4.8) L 05/30/20 08:30 Urine Ketones Negative mg/dL (Negative) 05/30/20 08: Urine Blood Moderate (Negative) A 05/30/20: Urine Nitrite Negative (Negative) 05/30/20 08: Ur Leukocyte Esterase Trace (Negative) H 05/30/20 08:29 Urine RBC 0-3 HPF (0-3) 05/30/20 08:29 Urine WBC 0-3 HPF (0-3) 05/30/20 08:29 Ur Squamous Epith Cells 0-3 HPF (0-3) 05/30/20 08:29 Urine Bacteria Rare-Few HPF (None Seen) 05/30/20 08:29 Hospitalist H&P A/P - Plan Plan: This is a 65-year-old female patient with a history of ESRD on dialysis, recent PE on Eliquis and previous GI bleed was transferred from a dialysis center on account of hypotension, presyncope altered mental status and positive melanotic stools. Hemorrhagic shock Still passing melanotic stools Blood pressure improved with maps above 65 with transfusion Continue transfusion Hold all blood pressure medication Hold pressors for now Continuous BP monitoring in CCU. Acute encephalopathy Likely secondary to shock/sepsis Blood pressure improving with transfusion Continue monitoring Needed intubation if GCS worsens Possible sepsis Altered mental status with hypotension Received Vanco and cefepime in the ED We will continue Anemia secondary to GI bleed Likely secondary to bleeding Dieulafoy's lesion in the setting of anticoagulation. Discontinue Eliquis We will transfuse H&H GI consulted Hypoglycemia Hemoglobin 20.9 presentation Currently above 300 Continue glucose monitoring. ESRD On dialysisnephrology is consulted. Pulmonary embolism Recently diagnosed however will stop Eliquis Pulmonology consulted. Hypothermia External moment Monitor temperature VT prophylaxisSCD CODE STATUSfull code
--- NOTE | 2020-05-30 11:32 | CT ---
Head CT without contrast 05/30/2020: COMPARISON: 05/16/2020 HISTORY: Altered mental status TECHNIQUE: Axial CT imaging at 5 mm intervals from vertex through skull base without contrast FINDINGS: A small nonspecific calvarial lytic area noted posteriorly on the right measuring approxima tely 7-8 mm, slightly more conspicuous than on the 2015 study at which time it measured in the 5-6 mm range. Imaged paranasal sinuses and mastoid air cells are well-aerated. No acute osseous abnormali ty. Stable atherosclerotic calcification of the distal vertebral arteries and bilateral cavernous carotid arteries. No intracranial hemorrhage, midline shift, mass effect, or ventricular enlargement. IMPRESSION: No acute findings. Incidental findings as detailed above.
[2020-05-30] MEDS ORDERED: EPOETIN ALFA-EPBX (ESRD) 10,000 UNIT/ML VIAL SC SCH (12:30)
--- NOTE | 2020-05-30 13:23 | PRG ---
DATE OF SERVICE: 05/30/2020 SUBJECTIVE: Ms. Sullivan is a 65-year-old black female with ESRD and on dialysis, was noted to be very agitated and became hypotensive. She was sent today here for further evaluation. The patient has been having chronic low leg pain and has been taking some narcotics. However, she was noted to have a significant drop in her hemoglobin of about 4.2. She was noted to be hypotensive. Volume repletion was done. Blood transfusion has also been given. Please note, this patient has been diagnosed with pulmonary embolism and was on anticoagulation. She developed symptomatic anemia with anticoagulation. She then subsequently underwent an upper GI endoscopy with cauterization of her AV malformation. Eliquis was subsequently resumed 1 to 2 weeks after her symptomatic anemia. Due to the significantly lower hemoglobin, we will be ordering off any anticoagulation with this patient. GI consult has been redone. She has been started on IV Protonix and empiric vancomycin and cefepime. OBJECTIVE: VITAL SIGNS: Blood pressure is 112/53, heart rate 74, respiratory rate 20. GENERAL: The patient is awake, confused, agitated, not in cardiorespiratory distress. SKIN: Decreased turgor. HEENT: Pale conjunctivae, anicteric sclerae. No neck mass. No carotid bruits. No JVD. CHEST: No deformities. LUNGS: Clear breath sounds. No wheezing. No crackles. HEART: Normal sinus rhythm. No murmur. No gallops. No rubs. ABDOMEN: Globular, soft, nontender. No masses. EXTREMITIES: No edema. No deformities. MEDICATIONS: Currently on Protonix drip-as directed, status post vancomycin and cefepime. LABORATORY DATA: On May 30, 2020; sodium 134, potassium 3.6, chloride 101, carbon dioxide is 18, BUN 45, creatinine 3.37, glucose 323, lactic acid 9.8. Hemoglobin 4.2. On May 30, 2020, CT scan of the brain showed no acute intracranial abnormality. On May 30, 2020, chest x-ray showed no acute cardiopulmonary process. ASSESSMENT AND PLAN: 1. Agitation, confusion, most likely related to her significant anemia. 2. Anemia. We will resume weekly Epogen at 10,000 units subcu every week. In addition, she will receive at least 2 to 3 units of packed RBC today. GI reconsulted for the possibility of recurrent gastrointestinal bleed. 3. Status post pulmonary embolism due to the gastrointestinal bleed. Hold off any anticoagulation. 4. End-stage renal disease-stable. No indication for any dialytic intervention. We will evaluate tomorrow. Overall prognosis remains guarded. Job ID: [id number]
[2020-05-30] MEDS ORDERED: Amiodarone 150 MG/3 ML VIAL ONE (13:45)
[2020-05-30 13:55] LABS: Lactic Acid 8.7 mmol/L (0.5-2.2)
[2020-05-30] MEDS ORDERED: Dextrose 5% in Water 1,000 ML IV PRN (14:02)
[2020-05-30] MEDS ORDERED: Dextrose 50% Abboject 50 ML SYRINGE SLOW IVP PRN (14:02)
[2020-05-30] MEDS: Dextrose 5 %-0.45 % NaCl 1,000 ML IV SCH (15:52)
[2020-05-30 16:00] LABS: SARS-CoV-2 MS2 Positive; SARS-CoV-2 N Gene Negative; SARS-CoV-2 S Gene Negative; SARS-CoV-2 by NAA Not Detected (NotDetected); SARS-CoV-2 orf1ab Negative
--- NOTE | 2020-05-30 16:06 | CON ---
DATE OF CONSULTATION: HISTORY OF PRESENT ILLNESS: Dai Sullivan is a 65-year-old female, very encephalopathic, yelling and screaming in the ICU. She presented with hypertension and confusion. Apparently, in the dialysis area, she sees Dr. Reyna who has seen already. It is felt that the confusion, syncope, hypertension are all due to severe anemia. H and H were extremely low when she arrived. She has received already 4 units of packed cells. She was just recently discharged from the hospital. Please review the extensive history in the previous recent discharge. Her blood pressure was 50/20 upon arrival. Blood sugar was less than 50. There was no access available. Since then, received D50 and blood transfusion. PAST MEDICAL HISTORY: Single-vessel PE involving the right middle lobe, seen by Dr. Toussaint, who recommended 3 months of anticoagulation after the bleeding has subsided, but clearly she is bleeding right now. History of chronic asthma, history of tobacco abuse, history of chronic renal failure, history of coronary artery stent, history of chronic GI issues, recent upper GI bleed, chronic pain. PAST SURGERIES: Multiple access, gallbladder, carotid endarterectomy, pacemaker, AICD. HOME MEDICINES: 1. Lyrica 75. 2. Protonix 40. 3. Midodrine 5. 4. Coreg 3.125. 5. Lipitor 10. 6. Aspirin 81. ALLERGIES: PENICILLIN, IODINE. REVIEW OF SYSTEMS: Absolutely unobtainable. PHYSICAL EXAMINATION: VITAL SIGNS: Pulse 71, blood pressure 110/64, respiratory rate 13, saturations 98%. CHEST: Decreased breath sounds, no wheezing. CARDIAC: Normal S1, S2. ABDOMEN: No masses. LABORATORY DATA: Repeat H and H pending. INR is 1.8, PT 21. PO2 of 158, pCO2 of , glucose was 41. Lactate was 8.5. Subsequently repeat glucose 325. Initial H and H noted was 4.2 and 12.6. A week ago, H and H were 8 and 26. Platelet count is normal. Chemistry as outlined. Creatinine 3.1. X-ray shows no acute infiltrates. ASSESSMENT: 1. Metabolic encephalopathy. 2. Gastrointestinal bleed, probably recurrent upper GI bleed. 3. Single-vessel pulmonary emboli. 4. Asthma, tobacco abuse, metabolic encephalopathy. At this stage, continue supportive care. Await input from GI. She probably needs further workup, maybe another endoscopy. Avoid giving her any medication for encephalopathy. We will notify Dr. Toussaint. This is a consultation note, 70 minutes, 50% direct patient care. Job ID: [id number]
[2020-05-30 17:17] LABS: Hemoglobin 10.5 g/dL (12.0-16.0)
--- NOTE | 2020-05-30 20:19 | CON ---
DATE OF CONSULTATION: 05/30/2020 REASON FOR CONSULT: GI bleed. HISTORY OF PRESENT ILLNESS: Ms. Sullivan is a very pleasant 65-year-old, well known to the GI service for history of AVMs and GI bleeding in the past on anticoagulation. More recently she came to the hospital on through 05/09 with an acute pulmonary embolus after declot of a vascular graft. When she was started anticoagulation, her anemia worsened. Ultimately stabilized and she was discharged home only to return from 05/15 through 05/22 with further bleeding and transfusion requirement. She had endoscopy and had a bleeding vessel in her stomach that was cauterized. At that time, there was conversation with Pulmonary about whether or not she needed to stay on long-term anticoagulation. It was decided to go ahead and restart anticoagulation but with her reversible agents such as warfarin. Ultimately, however, the patient was discharged home on Eliquis. I think because of her concerns that she could not get the Coumadin monitored in the outpatient setting. In any event, she was transferred here from dialysis where she had a near syncopal episode with systolics in the 50s. She does have a glucose in the 50s. She had Kcentra reversing agent for the Eliquis. She started transfusions for hemoglobin was 4.2, had been 8.7 on 05/21. Presently, she is in the ICU. Nurse notes she had a couple black stools, one in the emergency room, one here, although she has been more stable up in the ICU. PAST MEDICAL HISTORY: 1. Remote issue of GI bleeding, anemia, when she was on Plavix after coronary stent placement in [place] several years ago. She has been off that for a while. 2. End-stage renal disease, on dialysis. 3. Hypertension. 4. Peripheral vascular disease. 5. Heart failure with EF 20% to 25%. 6. Pancytopenia. 7. Recent pulmonary embolus. 8. Severe mitral regurgitation, severe tricuspid regurgitation, pulmonary hypertension. 9. Previous respiratory arrest x2, endoscopy, once in December of 2017, more recently with Dr. Benavides on 05/16/2020. 10. Hepatitis C, cured. 11. Thrombocytopenia. PAST SURGICAL HISTORY: Carotid endarterectomy, subclavian venous pacemaker, cholecystectomy, defibrillator, hemorrhoidectomy, previous history of intestinal AVMs on EGD and capsule endoscopy of small bowel. MEDICATIONS: Home 1. Lyrica. 2. Protonix. 3. Coreg. 4. Midodrine. 5. Lipitor. 6. Tylenol. 7. Eliquis. Present medications, here she received 1. Kcentra in the emergency room. 2. She is on Protonix drip. 3. Vancomycin. 4. Vitamin K. 5. Epogen. ALLERGIES: IODINE CONTRAST MEDIA AND PENICILLIN. FAMILY HISTORY: Noncontributory. SOCIAL HISTORY: Negative for alcohol, drugs, or tobacco. REVIEW OF SYSTEMS: Negative for chest pain, shortness of breath, dyspnea on exertion. She is very weak and she denies any abdominal pain. She has been little bit confused. PHYSICAL EXAMINATION: VITAL SIGNS: blood pressure 118/62, pulse 80, bladder temperature 98.9. GENERAL: Patient is resting in bed. She is arousable, but sleepy. LUNGS: Clear. HEART: Regular rate and rhythm without clicks or murmurs. ABDOMEN: Soft and nontender. There is no rebound. There is no guarding. EXTREMITIES: No clubbing, cyanosis, or edema. LABORATORY STUDIES: Sodium 134, potassium 3.6, BUN and creatinine are 14 and 3.18. Glucose is 48, was 41 at 8:30, . Liver function tests normal except for an AST of 51, CK-MB 40, total protein 4.8, albumin is 2.5. TSH normal. IMAGING: CT scan of the brain, no acute events. Chest x-ray, no acute events. ASSESSMENT: 1. Recurrent gastrointestinal bleeding in a patient with known AVMs throughout the upper and lower GI tract. This has recurred after resuming her Eliquis. 2. Pulmonary embolus, iatrogenic, related to attempt to declot of a dialysis graft in the left arm. This was back about 4 weeks ago when she was here on the 29 of April at her last endoscopy. She was discharged home holding Eliquis for a week and then it was resumed. Now she is bleeding again. 3. Very high risk for endoscopy with significant right heart failure and respiratory arrest x2 on last two upper endoscopies. RECOMMENDATIONS: Resuscitation with IV fluids. Stop anticoagulation. I agree with Kcentra and vitamin K. If the patient continues to bleed despite reversal of anticoagulation and PPI therapy and holding the anticoagulation and this is affecting , we will proceed with upper endoscopy for which she will need to be intubated. Otherwise, we will see if we can get the medicines to reverse and continue to treat her medically in. I will follow along with you. Job ID: [id number]
[2020-05-30] MEDS ORDERED: Cefepime 2 GM in Sodium Chloride 0.9% 100 ML IVPB SCH (21:00)
[2020-05-30] MEDS: Cefepime 1 GM in Sodium Chloride 0.9% 100 ML IVPB SCH (21:48)
[2020-05-30 22:21] LABS: Lactic Acid 3.8 mmol/L (0.5-2.2)
[2020-05-30 22:54] LABS: Hemoglobin 10.5 g/dL (12.0-16.0)
[2020-05-31] MEDS ORDERED: Lorazepam 2 MG/ML VIAL SLOW IVP SCH (00:30)
[2020-05-31 01:33] LABS: Hemoglobin 10.7 g/dL (12.0-16.0)
[2020-05-31 01:35] LABS: Lactic Acid 3.7 mmol/L (0.5-2.2)
[2020-05-31 05:29] LABS: Hemoglobin 10.6 g/dL (12.0-16.0)
[2020-05-31 05:55] LABS: Lactic Acid 2.5 mmol/L (0.5-2.2)
--- NOTE | 2020-05-31 09:28 | PRG ---
DATE OF SERVICE: 05/31/2020 SUBJECTIVE: Ms. Sullivan is a 65-year-old black female with ESRD and admitted for symptomatic anemia and confusion. She has also had been complaining of some leg pain, has been taking several pain medications. On admission, hemoglobin was noted at 4.2. She has received several units of packed RBC. Hemoglobin is now more stable. However, the patient continues to remain confused and agitated. All anticoagulations are on hold. The patient did not finish her dialysis treatment yesterday and for that reason, she will be undergoing hemodialysis today with no heparin. OBJECTIVE: VITAL SIGNS: Blood pressure is 158/84, heart rate is 104, respiratory rate 20, and O2 saturation 100%. GENERAL: The patient is agitated and confused, but not in cardiorespiratory distress. SKIN: Adequate turgor. HEENT: Pinkish conjunctivae. Anicteric sclerae. NECK: No neck mass. No carotid bruits. No JVD. CHEST: No deformities. LUNGS: Clear breath sounds. HEART: Normal sinus rhythm. No murmurs. No gallops. No rubs. ABDOMEN: Globular, soft, and nontender. No masses. EXTREMITIES: No edema. No deformities. MEDICATIONS: Medications of May 31, 2020, were reviewed. LABORATORY DATA: Laboratories of May 31, 2020; hemoglobin 10.6, hematocrit 31. On May 30, 2020; creatinine is 3.19 with a potassium 3.6. On May 30, 2020, CT scan of the brain shows no acute findings. ASSESSMENT AND PLAN: 1. Confusion/agitation-consider metabolic encephalopathy with this patient. CT scan of the brain was said to be negative. 2. End-stage renal disease-I have scheduled the patient for hemodialysis today. We will do a short dialysis without any heparin. The patient did not have dialysis Thursday and had a very shorten dialysis treatment yesterday. 3. Gastrointestinal bleed-hemoglobin much improved. Continue current weekly Epogen with this patient, p.r.n. blood transfusion. 4. Status post pulmonary embolism-all anticoagulation has been discontinued. Job ID: [id number]
[2020-05-31] MEDS: Cefepime 1 GM in Sodium Chloride 0.9% 100 ML IVPB SCH (09:34)
[2020-05-31] MEDS ORDERED: Heparin 10,000 UNITS/ 10 ML VIAL ONE (10:03)
[2020-05-31] MEDS ORDERED: Multivitamins, Adult 10 ML, Folic Acid 1 MG, Thiamine HCl 100 MG in Dextrose 5 %-0.45 %... IV SCH (11:00)
[2020-05-31] MEDS: Dextrose 5 %-0.45 % NaCl 1,000 ML IV SCH (11:13)
--- NOTE | 2020-05-31 16:08 | PRG ---
DATE OF SERVICE: 05/31/2020 SUBJECTIVE: Ms. Sullivan has remained hemodynamically stable. She has had only one bowel movement today, which was reported by nursing as normal brown in color. Hemoglobin has been stable since initial transfusion yesterday, was up to 10.5 last night and today stable at 10.6. She has remained quite sleepy and is actually not easily arousable by me this afternoon. OBJECTIVE: VITAL SIGNS: Temperature 97.7, pulse 79, blood pressure 131/81, and 99% oxygen saturation on room air. GENERAL: Somnolent, arousable to voice, but no meaningful communication. HEART: Regular rate and rhythm. LUNGS: Clear to auscultation bilaterally. ABDOMEN: Soft, nontender to palpation. EXTREMITIES: No peripheral edema. LABORATORY STUDIES: Hemoglobin stable at 10.6, hematocrit 31.0. INR was 1.8 on admission yesterday. Glucose 112. Lactic acid 2.5. COVID PCR is negative. ASSESSMENT AND PLAN: 1. Acute on chronic anemia, secondary to chronic gastrointestinal blood loss. 2. History of known gastric and duodenal arteriovenous malformations. This was all recurred after resuming her Eliquis. Eliquis currently being held. She has received Kcentra. She responded very well to initial blood transfusion and hemoglobin is stable today with no evidence of overt bleeding since admission. 3. Pulmonary embolus, iatrogenic, related to attempt to declot a dialysis graft in the left arm. Unfortunately, the patient has significant gastrointestinal bleeding whenever she was restarted on anticoagulation. 4. Very high risk for endoscopy, with significant right heart failure and respiratory arrest x2 on her last 2 upper endoscopies. We are not going to plan on any endoscopic intervention unless there is evidence of significant recurrent overt bleeding this admission. Continue her on high-dose PPI therapy, holding anticoagulation. GI can continue to follow along. Job ID: [id number]
--- NOTE | 2020-05-31 17:18 | PDOC.HOSPP ---
- Subjective Encounter Date: 05/31/20 Encounter Time: 09:00 Subjective: The patient was moaning at the bed, grunting. Per cousin, patient drinks a lot of alcohol, does not do any drugs. She lives next to her cousin and supposedly takes all of her medicines herself - Objective Vital Signs & Weight: Vital Signs (12 hours) Temp Pulse Pulse BP BP Pulse Ox Pulse Ox 05/31/20 15:00 97.7 F 05/31/20 13:35 78 77 133/94 H 132/81 100 98 05/31/20 13:34 79 78 133/94 H 132/81 99 98 05/31/20 12:00 97.2 F L Weight Admit Weight 132 lb Weight 132 lb 11.492 oz Most Recent Monitor Data Heart Rate from ECG 78 NIBP 131/81 NIBP BP-Mean 97 Respiration from ECG 23 SpO2 100 I&O: 05/30/20 05/31/20 06/01/20 06:59 06:59 06:59 Intake Total 1423 Output Total 20 Balance 1403 Result Diagrams: 05/31/20 05:00 05/30/20 08:30 Additional Labs: Accuchecks 05/31/20 05/31/20 05/30/20 05:19 02:05 22:01 POC Glucose 112 H 93 92 Hospitalist ROS - Review of Systems Constitutional: denies: fever, chills - Medication Medications: Active Medications Generic Name Dose Route Start Last Admin Trade Name Freq PRN Reason Stop Dose Admin Epoetin Johnson-epbx 10,000 unit 05/30/20 12:30 05/30/20 14:17 Epoetin Johnson-Epbx (Esrd) 10,000 Unit/Ml Vial SC 10,000 unit Q7D ALONZO Administration Dextrose/Sodium Chloride 1,000 mls @ 50 mls/hr 05/30/20 15:45 05/31/20 11:13 D5 1/2 Ns IV Not Given .Q20H ALONZO Multivitamins 10 ml/ Folic 1,011.2 mls @ 0 mls/hr 05/31/20 11:00 05/31/20 11:12 Acid 1 mg/ Thiamine HCl 100 mg IV 1,011.2 mls / Dextrose/Sodium Chloride 1100 ALONZO Administration As Directed - Exam Eye: PERRL Eye - other findings: pupils dilated, left more reactive to light than right ENT: normocephalic atraumatic, no oropharyngeal lesions Neck: no JVD Heart: RRR, no murmur, no gallops, no rubs Respiratory: CTAB, no wheezes, no rales, no ronchi, normal percussion Gastrointestinal: soft, non-tender, non-distended, normal bowel sounds Extremities: no cyanosis, no clubbing, no edema Skin: normal turgor, no lesions, no rashes Neurological: cranial nerve grossly intact, normal sensation to touch, no focal deficits, no new deficit Hosp A/P - Plan This is a 65 year old female who presented with GI bleed, hypotension, hypoglycemia, encephalopathy Hypoglycemia - possibly from patient not eating and taking insulin vs alcohol consumption - fingersticks have improved, can switch to q6 hours Acute encephalopathy - possibly metabolic - patient is known alcoholic. CT brain negative, ordered banana bag - check utox if able - add IV thiamine and folic acid Hypotension - rule out SEpsis - chest Xray and UA negative. SHe is on cefepime empirically - blood cultures are pending - hold coreg - Acute blood loss Anemia - likely secondary to eliquis - s/p 4 units of PRBC with improvement in hemoglobin to 10 - GI has been consulted, recommending against endoscopy at this time due to history of respiratory arrest in the past - continue protonix IV Bid CAD - resume aspirin, statin, hold coreg Dispo: transfer patient to [facility]
[2020-05-31] MEDS ORDERED: Thiamine HCl 200 MG/2 ML VIAL IM SCH (19:00)
[2020-05-31 19:38] LABS: Albumin 2.5 g/dL (3.4-4.8); Anion Gap 28 mmol/L (10-20); BUN (Urea Nitrogen) 68 mg/dL (9.8-20.1); BUN/Creatinine Ratio 12.36; Calc. Creatinine Clearance 10 mL/min (70-130); Calcium 8.2 mg/dL (7.8-10.44); Carbon Dioxide 11 mmol/L (23-31); Chloride 101 mmol/L (98-107); Estimated GFR-MDRD 9; Glucose 321 mg/dL (80-115); Phosphorus 9.4 mg/dL (2.3-4.7); Potassium 6.4 mmol/L (3.5-5.1); Sodium 134 mmol/L (136-145)
[2020-05-31] MEDS ORDERED: Cefepime 0.5 GM, Admixture Fee 1 EACH in Sodium Chloride 0.9% 100 ML IVPB SCH (21:00)
[2020-05-31] MEDS: Pantoprazole 40 MG VIAL IVP SCH (21:15)
[2020-06-01 06:40] LABS: Anion Gap 21 mmol/L (10-20); BUN (Urea Nitrogen) 27 mg/dL (9.8-20.1); Calc. Creatinine Clearance 19 mL/min (70-130); Calcium 8.6 mg/dL (7.8-10.44); Carbon Dioxide 22 mmol/L (23-31); Chloride 101 mmol/L (98-107); Estimated GFR-MDRD 21; Glucose 93 mg/dL (80-115); Potassium 4.8 mmol/L (3.5-5.1); Sodium 139 mmol/L (136-145)
[2020-06-01 06:44] LABS: #Lymphocytes 1.2 thou/uL (1.20-3.40); #Monocytes 0.8 thou/uL (0.11-0.59); #Neutrophils 7.6 thou/uL (1.40-6.50); %Basophils 0.1 % (0.0-1.0); %Eosinophils 0.2 % (0.0-10.0); %Lymphocytes 12.3 % (21.0-51.0); %Monocytes 7.9 % (0.0-10.0); %Neutrophils 79.4 % (42.0-75.0); Hemoglobin 9.6 g/dL (12.0-16.0); Mean Corpuscular HGB CONC 35.3 g/dL (32.0-36.0); Mean Corpuscular Hemoglobin 32.3 pg (27.0-31.0); Mean Corpuscular Volume 91.3 fL (78.0-98.0); Mean Platelet Volume 7.9 fL (7.4-10.4); Platelet Count 110 thou/uL (130-400); Platelet Morphology Comment Appears Decreased; RBC Distribution Width 15.6 % (11.5-14.5); Red Blood Cell (RBC) Count 2.99 mill/uL (4.20-5.40); White Blood Cell (WBC) Count 9.6 thou/uL (4.8-10.8)
[2020-06-01] MEDS: Aspirin 81 mg Enteric Coated Tablet PO SCH (09:27)
[2020-06-01] MEDS: Atorvastatin Calcium 10 MG TAB PO SCH (09:27)
[2020-06-01] MEDS: Dextrose 5 %-0.45 % NaCl 1,000 ML IV SCH (09:27)
[2020-06-01] MEDS: Folic Acid 1 MG TAB PO SCH (09:27)
[2020-06-01] MEDS: Pantoprazole 40 MG VIAL IVP SCH ×2 (09:54→21:36)
--- NOTE | 2020-06-01 10:01 | PRG ---
DATE OF SERVICE: 06/01/2020 SUBJECTIVE: Ms. Sullivan is a 65-year-old black female with ESRD-on maintenance hemodialysis and was initially admitted due to symptomatic anemia. She may have recurrence of her GI bleed. 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 This was previously cauterized. She had a previous pulmonary embolism and eventually she was restarted on anticoagulation, but looks like she did not tolerate this. She is off all anticoagulation. She did undergo hemodialysis yesterday without heparin. Tolerated said treatment. The patient is still noted to be confused. OBJECTIVE: VITAL SIGNS: Blood pressure is 111/46 with a heart rate of 90, respiratory rate 14, O2 saturation 98%. GENERAL: Patient is awake, comfortable, occasionally confused, but not in distress. SKIN: Adequate turgor. HEENT: Pinkish conjunctivae, anicteric sclerae. NECK: No neck mass. No carotid bruits. No JVD. CHEST: No deformities. LUNGS: Clear breath sounds. HEART: Normal sinus rhythm. No murmur. No gallops. No rubs. ABDOMEN: Globular, soft, nontender. EXTREMITIES: No edema, no deformities. MEDICATIONS: June 01, 2020, was reviewed. LABORATORY DATA: June 01, 2020, white count was 9.6, hemoglobin 9.6. Sodium 139, potassium 4.8, chloride 101, carbon dioxide 22, BUN 27, creatinine 2.79, glucose 93, calcium 8.6. May 31, 2020, phosphorus was 9.4. ASSESSMENT AND PLAN: 1. Endstage renal disease, stable. We will continue currently 3 times a week hemodialysis. No dialysis to be done today. I have scheduled her for hemodialysis in a.m. 2. Anemia/gastrointestinal bleed, much more stable. Hemoglobin is stable. Please note, she is off anticoagulation. She is high risk for a repeat upper GI endoscopy. 3. Metabolic encephalopathy. Continue supportive care. 4. Overall prognosis remains guarded. Recheck CBC, base met in a.m. Job ID: [id number]
--- NOTE | 2020-06-01 12:58 | PRG ---
DATE OF SERVICE: 06/01/2020 SUBJECTIVE: Ms. Sullivan has remained confused with waxing and waning mental status. Not expressing any abdominal pain. No melena. Hemoglobin drifted down from 10.6 yesterday to 9.6 today. She has remained hemodynamically stable. PHYSICAL EXAMINATION: VITAL SIGNS: Temperature 97.6, pulse 85, blood pressure 135/68, 98% oxygen saturation on room air. GENERAL: Encephalopathic. Does not respond to voice. HEART: Regular rate and rhythm. LUNGS: Clear to auscultation bilaterally. ABDOMEN: Soft, nontender to palpation. EXTREMITIES: 1+ bilateral lower extremity edema. LABORATORY STUDIES: Hemoglobin 9.6, WBC 9.6, platelets 110. Sodium 139, potassium 4.8, BUN 27, creatinine 2.79, glucose 93, calcium 8.6. ASSESSMENT AND PLAN: 1. Acute on chronic anemia, secondary to chronic gastrointestinal blood loss. 2. History of known gastric and duodenal arteriovenous malformations. 3. Pulmonary embolus. I discussed the case with Dr. Huang. The patient remained stable since admission and initial transfusion of 4 units a couple of days ago. Unfortunately, the patient has significant gastrointestinal bleeding whenever she is restarted on anticoagulation. In addition, she is very high risk for any repeat endoscopy. Accordingly, decisions about further anticoagulation are difficult. From a gastrointestinal standpoint, obviously it would be best to avoid or minimize anticoagulation if possible. If anticoagulation must be used, then perhaps Coumadin would be a better option as it is more easily reversible and certainly, her H and H would need to be monitored very closely going forward if anticoagulation was resumed. For now, continue on high-dose PPI therapy. 4. Encephalopathy. The nature of this is unclear to me. Her admission CT head showed no acute findings. I do not see any documented history of cirrhosis and LFTs are normal. Job ID: [id number]
--- NOTE | 2020-06-01 13:39 | ULT ---
RIGHT UPPER QUADRANT ULTRASOUND: 06/01/20 INDICATIONS: Right upper quadrant pain. Patient is status post cholecystectomy. The uterus is mildly echogenic. No focal liver mass lesions s een. Common bile duct normal caliber for a post cholecystectomy status measuring 7 mm. The pancreas is mos tly obscured but appears unremarkable where visualized. The right kidney is imaged. There is evidence of increased cortical echogenicity and cortical thinnin g. Correlate with renal function test. Small cyst inferior pole right kidney measures 1.0 cm. IMPRESSION: 1. Status post cholecystectomy. 2. Mildly echogenic liver with no focal liver lesion. 3. Right kidney shows increased cortical echogenicity. Correlate with renal function tests. 4. Small right renal cyst. 5. Incidentally noted is evidence of right pleural effusion. POS: [facility]
--- NOTE | 2020-06-01 14:13 | PDOC.HOSPP ---
- Subjective Encounter Date: 06/01/20 Encounter Time: 09:00 Subjective: The patient is moaning less today but still doesnt open her eyes or talk. She did move her arms to command. Dialysis nurse is unable to do dialysis on her because they cannot register a blood pressure on her - Objective Vital Signs & Weight: Vital Signs (12 hours) Temp Pulse Ox 06/01/20 11:30 97.6 F 06/01/20 07:35 98 06/01/20 07:23 96.0 F L Weight Admit Weight 132 lb 11.492 oz Weight 132 lb 11.492 oz Most Recent Monitor Data Heart Rate from ECG 85 NIBP 135/68 NIBP BP-Mean 90 Respiration from ECG 37 SpO2 98 I&O: 05/31/20 06/01/20 06/02/20 06:59 06:59 06:59 Intake Total 1423 600 Output Total 20 Balance 1403 600 Result Diagrams: 06/01/20 06:00 06/01/20 06:00 Hospitalist ROS - Review of Systems ROS unobtainable: due to mental status - Medication Medications: Active Medications Generic Name Dose Route Start Last Admin Trade Name Freq PRN Reason Stop Dose Admin Aspirin 81 mg 06/01/20 09:00 06/01/20 09:27 Aspirin 81 Mg Enteric Coated Tablet PO Not Given DAILY ALONZO Atorvastatin Calcium 10 mg 06/01/20 09:00 06/01/20 09:27 Atorvastatin Calcium 10 Mg Tab PO Not Given DAILY ALONZO Dextrose/Water 25 gm 05/30/20 14:02 05/31/20 18:46 Dextrose 50% Abboject 50 Ml Syringe SLOW IVP 25 gm PRN PRN Administration Hypoglycemia Epoetin Johnson-epbx 10,000 unit 05/30/20 12:30 05/30/20 14:17 Epoetin Johnson-Epbx (Esrd) 10,000 Unit/Ml Vial SC 10,000 unit Q7D ALONZO Administration Folic Acid 1 mg 06/01/20 09:00 06/01/20 09:27 Folic Acid 1 Mg Tab PO Not Given DAILY [facility] Dextrose/Sodium Chloride 1,000 mls @ 50 mls/hr 05/30/20 15:45 06/01/20 09:27 D5 1/2 Ns IV Not Given .Q20H ALONZO Cefepime HCl 0.5 gm/ 100 mls @ 200 mls/hr 05/31/20 21:00 05/31/20 22:41 Miscellaneous Medication 1 IVPB 100 mls each/ Sodium Chloride 2100 ALONZO Administration Thiamine HCl 100 mg/ Sodium 51 mls @ 100 mls/hr 05/31/20 20:00 05/31/20 21:15 Chloride IVPB 51 mls Q24HR ALONZO Administration Pantoprazole Sodium 40 mg 05/31/20 21:00 06/01/20 09:54 Pantoprazole 40 Mg Vial IVP 40 mg Q12HR ALONZO Administration Sodium Chloride 10 ml 05/31/20 21:00 06/01/20 09:53 Flush - Normal Saline 10 Ml Syringe IVF 10 ml Q12HR ALONZO Administration - Exam General Appearance: NAD, awake alert General - other findings: moans, keeps eyes closed Eye: PERRL, anicteric sclera ENT: normocephalic atraumatic, no oropharyngeal lesions Neck: no JVD Heart: RRR, no murmur, no gallops, no rubs Respiratory: CTAB, no wheezes, no rales, no ronchi Gastrointestinal: soft, non-tender, non-distended, normal bowel sounds Extremities: no cyanosis, no clubbing, no edema Skin: normal turgor, no lesions, no rashes Neurological - other findings: Feels pain right leg, doesn't with draw. No pain elicited on left leg. Musculoskeletal: generalized weakness Musculoskeletal - other findings: moves left arm to co mmand and right arm slightly. Psychiatric: not oriented Hosp A/P - Plan ABD US: mildly echogenic liver, right renal cyst. Right pleural effusion. S/p cholecystectomy This is a 65 year old female who presented with GI bleed, hypotension, hypogl ycemia, encephalopathy Hypoglycemia - improved, will continue to monitor Acute encephalopathy - possibly metabolic - patient is known alcoholic. CT brain negative, s/p banana bag yesterday. Continue Iv thiamine - continue folic acid RUQ tenderness - abdominal US ordered, showed mildly echogenic liver. Hypotension - no evidence of sepsis. Blood cultures negative, UA and chest Xray normal - will discontinue cefepime Acute blood loss Anemia - likely secondary to eliquis - s/p 4 units of PRBC with improvement in hemoglobin to 10 . GI recommended against endoscopy Malnutrition - patient unable to eat due to mental status. Will order PPN History of Pulmonary embolus - will consider restarting anticoagulation with coumadin History of AVM requiring cauterization - discussed with GI, can consider restarting anticoagulation, but will continue on PPI and monitor for any bleeding ESRD - continue dialysis as tolerated CAD - continue aspirin, statin, hold coreg
[2020-06-01 15:17] LABS: Mean Corpuscular HGB CONC 35.3 g/dL (32.0-36.0); Mean Corpuscular Hemoglobin 32.9 pg (27.0-31.0); Mean Corpuscular Volume 93.2 fL (78.0-98.0); Mean Platelet Volume 7.9 fL (7.4-10.4); Platelet Count 116 thou/uL (130-400); RBC Distribution Width 16.5 % (11.5-14.5); Red Blood Cell (RBC) Count 3.02 mill/uL (4.20-5.40); White Blood Cell (WBC) Count 11.5 thou/uL (4.8-10.8)
[2020-06-01 15:22] LABS: INR-International Normal Ratio 1.8
[2020-06-01] MEDS ORDERED: Warfarin Sodium 2.5 MG TAB PO SCH (17:00)
[2020-06-01] MEDS ORDERED: D5W-AA 4.25% with LYTES 1,000 ML IV SCH (18:00)
--- NOTE | 2020-06-01 19:06 | PDOC.EVN ---
Event Note - Event Note Event Note: Discussed with case management, family is considering private pay with [facility] on Thursday. Will not accept patient until then
[2020-06-01] MEDS ORDERED: EPINEPHrine 4 MG in Dextrose 5% in Water 250 ML IV SCH (21:00)
[2020-06-02 05:00] LABS: INR-International Normal Ratio 1.9; Prothrombin Time 21.9 sec (12.0-14.7)
[2020-06-02 05:34] LABS: ALT (SGPT) 154 U/L (8-55); AST (SGOT) 422 U/L (5-34); Albumin 2.3 g/dL (3.4-4.8); Alkaline Phosphatase 73 U/L (40-110); Anion Gap 24 mmol/L (10-20); BUN (Urea Nitrogen) 55 mg/dL (9.8-20.1); Bilirubin, Total 0.5 mg/dL (0.2-1.2); Calc. Creatinine Clearance 12 mL/min (70-130); Calcium 8.1 mg/dL (7.8-10.44); Carbon Dioxide 19 mmol/L (23-31); Chloride 102 mmol/L (98-107); Estimated GFR-MDRD 12; Globulin 2.1 g/dL (2.4-3.5); Glucose 110 mg/dL (80-115); Phosphorus 11.3 mg/dL (2.3-4.7); Potassium 7.7 mmol/L (3.5-5.1); Protein, Total 4.4 g/dL (6.0-8.3); Sodium 137 mmol/L (136-145)
[2020-06-02] MEDS ORDERED: Calcium Chloride 1 GM/10 ML Abboject SYRINGE ONE (05:36)
[2020-06-02] MEDS ORDERED: Sodium Bicarb 50 MEQ/50 ML Abboject 8.4% SYRINGE ONE (05:36)
[2020-06-02] MEDS ORDERED: Insulin Regular 300 UNITS/3 ML VIAL ONE (05:37)
[2020-06-02 05:48] LABS: Hemoglobin 9.6 g/dL (12.0-16.0); MDiff Complete? YES; Mean Corpuscular HGB CONC 35.1 g/dL (32.0-36.0); Mean Corpuscular Hemoglobin 33.6 pg (27.0-31.0); Mean Corpuscular Volume 95.7 fL (78.0-98.0); Platelet Count 93 thou/uL (130-400); Red Blood Cell (RBC) Count 2.86 mill/uL (4.20-5.40); White Blood Cell (WBC) Count 11.2 thou/uL (4.8-10.8)
[2020-06-02 05:49] LABS: Band 13 % (5-11); Hypochromia MODERATE=16-30 cells (100X) (0-5/hpf); Lymphocytes 4 % (21-51); Metamyelocyte 1 % (0-0); Monocytes 5 % (0-10); Neutrophil 77 % (42-75); Nucleated RBC 5 % (0); Platelet Morphology Comment Appears Decreased; Polychromasia SLIGHT = 2-3 cells (100X) (0-2/hpf)
[2020-06-02 05:55] LABS: Actual Bicarbonate (HCO3a) 16.2 mEq/L (22-28); Analyzer IN Cardio ER; Base Excess (BEa) -9.3 mEq/L (-2.0 to +3.0); CO2 Tension 33.4 mmHg (35.0-45.0); Calcium, Ionized (arterial) 1.55 mmol/L (1.12-1.30); Carboxyhemoglobin (COHb) 0.3 gm% (0.0-3.0); Hemoglobin (Hb) 8.4 g/dL (12.0-16.0); O2 Tension (PaO2), arterial 93.7 mmHg (> 80.0); Potassium - ABG Lab 7.31 mmol/L (3.70-5.30)
[2020-06-02 05:57] LABS: Puncture Site RBA
[2020-06-02] MEDS ORDERED: Norepinephrine 8 MG/0.9% NS 250 ML ONE (07:12)
[2020-06-02 07:52] VITALS: BP 65/44
[2020-06-02] MEDS ORDERED: Sodium Chloride 0.9% 500 ML IV SCH (09:00)
[2020-06-02] MEDS: Pantoprazole 40 MG VIAL IVP SCH ×2 (09:03→20:14)
[2020-06-02] MEDS: Aspirin 81 mg Enteric Coated Tablet PO SCH (09:13)
[2020-06-02] MEDS: Folic Acid 1 MG TAB PO SCH (09:14)
[2020-06-02] MEDS: Atorvastatin Calcium 10 MG TAB PO SCH (09:14)
[2020-06-02 09:55] LABS: Hemoglobin 8.4 g/dL (12.0-16.0); Mean Corpuscular HGB CONC 34.6 g/dL (32.0-36.0); Mean Corpuscular Hemoglobin 33.3 pg (27.0-31.0); Mean Corpuscular Volume 96.2 fL (78.0-98.0); Mean Platelet Volume 7.8 fL (7.4-10.4); Platelet Count 88 thou/uL (130-400); RBC Distribution Width 17.2 % (11.5-14.5); Red Blood Cell (RBC) Count 2.53 mill/uL (4.20-5.40)
[2020-06-02 10:01] LABS: INR-International Normal Ratio 2.3; Prothrombin Time 25.8 sec (12.0-14.7)
--- NOTE | 2020-06-02 10:01 | RAD ---
PORTABLE CHEST: 06/02/20 PROVIDED CLINICAL HISTORY: Dyspnea. COMPARISON: 05/30/2020 FINDINGS: The cardiac silhouette remains enlarged. Atherosclerosis, left subclavian cardiac pacing device and r ight IJ dialysis catheter are again seen, stable. There is no lobar consolidation, pleural fluid or p neumothorax apparent. IMPRESSION: Stable radiographic appearance of the chest. POS: [facility]
[2020-06-02 10:21] LABS: Anion Gap 23 mmol/L (10-20); BUN (Urea Nitrogen) 61 mg/dL (9.8-20.1); Calc. Creatinine Clearance 12 mL/min (70-130); Calcium 8.6 mg/dL (7.8-10.44); Carbon Dioxide 19 mmol/L (23-31); Chloride 106 mmol/L (98-107); Estimated GFR-MDRD 12; Glucose 127 mg/dL (80-115); Magnesium 2.4 mg/dL (1.6-2.6); Sodium 141 mmol/L (136-145)
[2020-06-02 10:25] LABS: PTT Greater than 250.0 sec (22.9-36.1)
[2020-06-02 10:31] LABS: Phosphorus 11.6 mg/dL (2.3-4.7); Potassium 6.7 mmol/L (3.5-5.1)
[2020-06-02 10:32] LABS: Anisocytosis MODERATE=16-30 cells (100X) (0-5/hpf); Band 17 % (5-11); Lymphocytes 7 % (21-51); MDiff Complete? YES; Monocytes 9 % (0-10); Neutrophil 64 % (42-75); Nucleated RBC 6 % (0); Platelet Morphology Comment Appears Decreased; Polychromasia MODERATE = 3-4 cells (100X) (0-2/hpf); Reactive Lymphocytes 3 % (0-10); Vacuoles SLIGHT
--- NOTE | 2020-06-02 10:49 | PRG ---
DATE OF SERVICE: 06/02/2020 SUBJECTIVE: Ms. Sullivan is a 65-year-old black female with ESRD and currently on maintenance hemodialysis. She was admitted for symptomatic anemia for possible recurrence of GI bleed. Previously, she has a history of a gastric duodenal AV malformation and has recently undergone upper GI endoscopy with cauterization of the said lesions. She also was resumed on her anticoagulation due to her history of pulmonary embolism. She is undergoing hemodialysis today. She was noted to be hyperkalemic and hyperphosphatemic this morning. Emergent hemodialysis as ongoing. OBJECTIVE: VITAL SIGNS: Blood pressure is 108/62, heart rate 71, respiratory rate 16, O2 saturation 100%. GENERAL: The patient was confused, but not in overt distress. SKIN: Adequate turgor. HEENT: Pinkish conjunctivae. Anicteric sclerae. NECK: No neck mass. No carotid bruits. No JVD. CHEST: No deformities. LUNGS: Clear breath sounds. No wheezing. No crackles. HEART: Normal sinus rhythm. No murmur. No gallops. No rubs. ABDOMEN: Globular, soft, nontender. No masses. EXTREMITIES: No edema. No deformities. MEDICATIONS: Of June 02, 2020, reviewed. LABORATORY DATA: Laboratories of June 02, 2020; white count 11, hemoglobin 8.4. Sodium 137, potassium 7.7, chloride 102, carbon dioxide 19, BUN 55, creatinine 4.36, phosphorus is 11.3, AST 422, and ALT 154. ASSESSMENT AND PLAN: 1. Hyperkalemia/hyperphosphatemia - most likely from her underlying TPN. This will be discontinued. Consult pharmacy regarding TPN for patient with end-stage renal disease. 2. End-stage renal disease, stable. We will continue current hemodialysis regimen 3 times a week. Fluid removal is being done - attempting 1 L fluid removal. 3. Anemia, stable, p.r.[place]. [place] [address] units subcu every week. 4. Recheck CBC, basic metabolic profile in a.m. as well as phosphorus. Job ID: [id number]
--- NOTE | 2020-06-02 11:47 | PRG ---
DATE OF SERVICE: 06/02/2020 She had a period of instability last night with wide-complex tachycardia. She was restless. She was noted to have elevated potassium and received D50 and insulin. She also received amiodarone. She remained stable until this morning when she had a similar event. She again received D50 and insulin as well as bicarbonate. Her initial blood sugar was adequate but then fell and subsequent D50 was required. She has been extremely restless. She was hypotensive, necessitating fluid bolus and initiation of pressors. At which time, she was transferred from the [facility] back to the ICU. Dialysis has been arranged and is currently underway. They are aiming to get about 2 kg, although I suspect that she is probably going to need a little bit of fluid back and possibly some blood. She is noted to respond to her name, but generally not very appropriate this morning. PHYSICAL EXAMINATION: VITAL SIGNS: Blood pressure is ranged from 91/64 to 100/60. Heart rate is in the mid 70s. Respiratory rate is in the 30s. GENERAL: She is noted to respond to her name. She is restless and agitated in bed. LUNGS: Shallow effort with coarse rhonchi. HEART: Regular rate and rhythm. She does not have a tachycardia. She does have a murmur but no gallop. ABDOMEN: Soft. She has trace edema. EXTREMITIES: Cool and clammy. She has a tunneled dialysis catheter and a femoral IV line. LABORATORY DATA: White count 39746, hemoglobin is 8.4, platelet count 88,000. She has 64 segs and 17 bands. INR is 2.3. Blood gas includes pH 7.3, CO2 is 33, PO2 of 93, bicarbonate of 16. Electrolytes include sodium 141, potassium 6.7 (dialysis ongoing), chloride 106, CO2 is 19, BUN 61, creatinine 4.4, phosphorus is high. Liver tests are elevated including AST of 420, ALT of 150. Chest x-ray shows lines in appropriate positions. There is minimal consolidation. There is no pneumothorax. IMPRESSION: 1. End stage renal disease, on hemodialysis. 2. Confusion, presumed secondary to metabolic encephalopathy. She has significant elevation in leukocytosis. I do not see an obvious pneumonia. She clearly has a of electrolyte abnormalities as well as her chronic renal encephalopathy. 3. Ventricular arrhythmia, most likely secondary to hyperkalemia. 4. Past history of tobacco abuse. 5. Hypotension presumed secondary to above. PLAN: Dialysis is on schedule for today. We will continue to treat her potassium, although I suspect that dialysis is going to be quite helpful for that. She is on empiric antibiotics. She does not require ventilatory support at this time. Critical care 32 minutes. Job ID: [id number]
[2020-06-02] MEDS ORDERED: Heparin 10,000 UNITS/ 10 ML VIAL ONE (13:57)
[2020-06-02] MEDS: Dextrose 5% in Water 1,000 ML IV SCH (14:44)
--- NOTE | 2020-06-02 16:23 | PDOC.HOSPP ---
- Subjective Encounter Date: 06/02/20 Subjective: The patient is agitated and is on restraint. She is currently receiving hemodialysis. - Objective Vital Signs & Weight: Vital Signs (12 hours) Temp Pulse Pulse Pulse Pulse Pulse Pulse 06/02/20 15:00 99.3 F 06/02/20 12:00 96.7 F L 06/02/20 09:00 98.2 F 06/02/20 08:45 06/02/20 08:00 98.4 F 06/02/20 07:21 98.8 F 06/02/20 07:05 06/02/20 05:30 70 78 67 73 68 70 Pulse Pulse Pulse Pulse Pulse Resp Resp 06/02/20 15:00 06/02/20 12:00 06/02/20 09:00 06/02/20 08:45 06/02/20 08:00 06/02/20 07:21 06/02/20 07:05 77 77 77 73 73 06/02/20 05:30 14 16 Resp Resp Resp Resp Resp Resp Resp 06/02/20 15:00 06/02/20 12:00 06/02/20 09:00 06/02/20 08:45 06/02/20 08:00 06/02/20 07:21 06/02/20 07:05 25 H 27 H 24 H 06/02/20 05:30 14 16 16 18 Resp Resp BP BP BP BP BP 06/02/20 15:00 06/02/20 12:00 06/02/20 09:00 06/02/20 08:45 06/02/20 08:00 06/02/20 07:21 06/02/20 07:05 40 H 19 06/02/20 05:30 92/74 130/90 114/61 99/51 L 100/50 L BP BP BP BP BP BP Pulse Ox 06/02/20 15:00 06/02/20 12:00 06/02/20 09:00 06/02/20 08:45 96 06/02/20 08:00 06/02/20 07:21 06/02/20 07:05 65/44 L 74/47 L 64/44 L 67/43 L 71/45 L 06/02/20 05:30 96/77 Pulse Ox Pulse Ox Pulse Ox Pulse Ox Pulse Ox Pulse Ox 06/02/20 15:00 06/02/20 12:00 06/02/20 09:00 06/02/20 08:45 06/02/20 08:00 06/02/20 07:21 06/02/20 07:05 99 99 100 100 06/02/20 05:30 88 L 99 Weight Admit Weight 132 lb 11.492 oz Weight 132 lb 11.492 oz Most Recent Monitor Data Heart Rate from ECG 100 NIBP 107/76 NIBP BP-Mean 86 Respiration from ECG 18 SpO2 86 I&O: 06/01/20 06/02/20 06/03/20 06:59 06:59 05:59 Intake Total 600 150 861 Output Total 0 Balance 600 150 861 Result Diagrams: 06/02/20 08:35 06/02/20 08:35 Additional Labs: Accuchecks 06/02/20 06/02/20 06/02/20 09:03 07:10 06:00 POC Glucose 107 H 59 L* 164 H 06/02/20 06/02/20 06/01/20 05:34 00:01 18:03 POC Glucose 99 122 H 76 06/01/20 06/01/20 06/01/20 12:24 05:41 01:22 POC Glucose 91 104 H 84 05/31/20 05/31/20 05/31/20 19:40 18:39 14:04 POC Glucose 157 H 60 L 73 05/31/20 05/31/20 05/30/20 12:07 08:22 20:49 POC Glucose 78 101 H 110 H 05/30/20 18:00 POC Glucose 84 Hospitalist ROS - Medication Medications: Active Medications Generic Name Dose Route Start Last Admin Trade Name Freq PRN Reason Stop Dose Admin Aspirin 81 mg 06/01/20 09:00 06/02/20 09:13 Aspirin 81 Mg Enteric Coated Tablet PO Not Given DAILY ALONZO Atorvastatin Calcium 10 mg 06/01/20 09:00 06/02/20 09:14 Atorvastatin Calcium 10 Mg Tab PO Not Given DAILY ALONZO Dextrose/Water 25 gm 05/30/20 14:02 05/31/20 18:46 Dextrose 50% Abboject 50 Ml Syringe SLOW IVP 25 gm PRN PRN Administration Hypoglycemia Epoetin Johnson-epbx 10,000 unit 05/30/20 12:30 05/30/20 14:17 Epoetin Johnson-Epbx (Esrd) 10,000 Unit/Ml Vial SC 10,000 unit Q7D ALONZO Administration Folic Acid 1 mg 06/01/20 09:00 06/02/20 09:14 Folic Acid 1 Mg Tab PO Not Given DAILY ALONZO Thiamine HCl 100 mg/ Sodium 51 mls @ 100 mls/hr 05/31/20 20:00 06/01/20 21:36 Chloride IVPB 51 mls Q24HR ALONZO Administration Dextrose/Water 1,000 mls @ 75 mls/hr 06/02/20 14:00 06/02/20 14:44 D5w IV 1,000 mls .[id number] ALONZO Administration Pantoprazole Sodium 40 mg 05/31/20 21:00 06/02/20 09:03 Pantoprazole 40 Mg Vial IVP 40 mg Q12HR ALONZO Administration Sodium Chloride 10 ml 05/31/20 21:00 06/02/20 09:03 Flush - Normal Saline 10 Ml Syringe IVF 10 ml Q12HR ALONZO Administration - Exam General Appearance: ill appearing ENT: normocephalic atraumatic Neck: supple, no JVD Heart: RRR, no murmur, no gallops Respiratory: normal chest expansion, no tachypnea Gastrointestinal: soft Neurological: cranial nerve grossly intact, no new deficit Hosp A/P (1) Wide-complex tachycardia Code(s): I47.2 - VENTRICULAR TACHYCARDIA Status: Acute (2) Anemia due to acute blood loss Code(s): D62 - ACUTE POSTHEMORRHAGIC ANEMIA Status: Acute (3) Elevated troponin Code(s): R74.8 - ABNORMAL LEVELS OF OTHER SERUM ENZYMES Status: Acute (4) GI bleed Code(s): K92.2 - GASTROINTESTINAL HEMORRHAGE, UNSPECIFIED Status: Acute Qualifiers: GI bleed type/associated pathology: unspecified gastrointestinal hemorrhage type Qualified Code(s): K92.2 - Gastrointestinal hemorrhage, unspecified (5) Hyperkalemia Code(s): E87.5 - HYPERKALEMIA Status: Acute (6) Hypotension Status: Acute Qualifiers: Hypotension type: unspecified hypotension type Qualified Code(s): I95.9 - Hypotension, unspecified - Plan Severe hyperkalemia and arrhythmia were reported. The patient is now requiring hemodialysis. PPN was discontinued due to the hypotension component. The patient is agitated and restrained. We will monitor her response to the dialysis. On IV dextrose as needed for hypoglycemia. The patient is now on pressors for hypotension. No source of infection was identified.
--- NOTE | 2020-06-02 17:12 | PRG ---
DATE OF SERVICE: 06/02/2020 SUBJECTIVE: Ms. Sullivan had some wide-complex tachycardia last night. Laboratory studies demonstrating severe hyperkalemia this morning with potassium 7.7. She underwent some emergent hemodialysis. She remains encephalopathic. She received it looks like one single dose of Coumadin last night. This morning, INR is up to 2.3 and APTT is greater than 250. Per nursing, she has continued to have some small volume black stools, nothing very copious. She has otherwise remained hypotensive, getting Levophed. OBJECTIVE: VITAL SIGNS: Temperature 99.3, pulse 100, blood pressure 107/76, 98% oxygen saturation on room air. GENERAL: Encephalopathic, responding to internal stimuli. She does respond to voice, but does not meaningfully communicate. HEART: Regular rate and rhythm. LUNGS: Clear to auscultation bilaterally. No respiratory distress. ABDOMEN: Bowel sounds are present. Nontender to palpation. EXTREMITIES: No peripheral edema. LABORATORY STUDIES: Hemoglobin drifted down to 8.4, WBC 11.0, platelets down to 88. INR 2.3, APTT is greater than 250. Sodium 141, potassium 6.7, BUN 61, creatinine 4.42, glucose 127, phosphorus 11.6, magnesium 2.4, total bilirubin 0.5, alkaline phosphatase 73, AST bumped up to 422, ALT bumped up to 154. This likely represents ischemic hepatopathy. ASSESSMENT AND PLAN: 1. Acute on chronic anemia secondary to chronic gastrointestinal blood loss. 2. History of known gastric and duodenal arteriovenous malformations. 3. Pulmonary embolus. Again, from a GI perspective, it would be best to minimize anticoagulation or avoid it completely. Every time she has been started back on anticoagulation, she has had recurrent melena and significant hemoglobin decline. We are not going to plan on any repeat upper endoscopy and at any rate, her clinical status is too tenuous to consider repeat endoscopy, but this would be a low yield proposition. Continue on the high-dose proton pump inhibitor therapy for now. 4. Encephalopathy, metabolic. 5. End-stage renal disease, on dialysis. 6. Hyperkalemia and hyperphosphatemia. The patient had to undergo emergency dialysis due to cardiac arrhythmias. Nephrology is following. Total parenteral nutrition is being adjusted. No further recommendations from a Gastroenterology perspective at this time. We will back off and follow along peripherally, but please call anytime with questions or concerns. Job ID: [id number]
[2020-06-02 20:02] LABS: Hemoglobin 9.2 g/dL (12.0-16.0)
[2020-06-02 20:07] LABS: Potassium 5.7 mmol/L (3.5-5.1)
[2020-06-02] MEDS ORDERED: Haloperidol Lactate 5 MG/ML VIAL SLOW IVP SCH (20:45)
[2020-06-02] MEDS: SODIUM CHLORIDE IV SCH (22:18)
[2020-06-02] MEDS: MULTIVITAMINS IV SCH (22:18)
[2020-06-02] MEDS: CALCIUM CHLORIDE IV SCH (22:18)
[2020-06-02] MEDS: FAT EMULSION IV SCH (22:18)
[2020-06-02] MEDS: [UNRECOGNIZED DRUG - OTHER] IV SCH (22:18)
[2020-06-02] MEDS: Norepinephrine 8 MG/250 ML IVPB SCH (23:51)
[2020-06-03] MEDS: Dextrose 5% in Water 1,000 ML IV SCH (04:46)
[2020-06-03] MEDS: Morphine 2 MG/ML VIAL SLOW IVP PRN ×4 (05:13→19:10)
[2020-06-03 05:42] LABS: INR-International Normal Ratio 1.7; Prothrombin Time 20.1 sec (12.0-14.7)
[2020-06-03 05:56] LABS: Band 17 % (5-11); Elliptocytes SLIGHT = 2-5 cells (100X) (0-1/hpf); Hemoglobin 8.9 g/dL (12.0-16.0); Hypochromia SLIGHT = 6-15 cells (100X) (0-5/hpf); Lymphocytes 7 % (21-51); MDiff Complete? YES; Mean Corpuscular HGB CONC 33.6 g/dL (32.0-36.0); Mean Corpuscular Hemoglobin 32.7 pg (27.0-31.0); Mean Corpuscular Volume 97.3 fL (78.0-98.0); Mean Platelet Volume 8.3 fL (7.4-10.4); Monocytes 8 % (0-10); Neutrophil 68 % (42-75); Nucleated RBC 3 % (0); Platelet Count 78 thou/uL (130-400); Platelet Morphology Comment Appears Decreased; Polychromasia SLIGHT = 2-3 cells (100X) (0-2/hpf); RBC Distribution Width 18.5 % (11.5-14.5); Red Blood Cell (RBC) Count 2.71 mill/uL (4.20-5.40); White Blood Cell (WBC) Count 13.1 thou/uL (4.8-10.8)
[2020-06-03 05:57] LABS: Anion Gap 19 mmol/L (10-20); BUN (Urea Nitrogen) 39 mg/dL (9.8-20.1); Calc. Creatinine Clearance 18 mL/min (70-130); Calcium 7.7 mg/dL (7.8-10.44); Carbon Dioxide 22 mmol/L (23-31); Chloride 99 mmol/L (98-107); Estimated GFR-MDRD 19; Glucose 148 mg/dL (80-115); Phosphorus 7.7 mg/dL (2.3-4.7); Potassium 5.5 mmol/L (3.5-5.1); Sodium 134 mmol/L (136-145)
--- NOTE | 2020-06-03 08:31 | PRG ---
DATE OF SERVICE: 06/03/2020 HISTORY OF PRESENT ILLNESS: She has had continued decline in the past 24 hours. She has not had any further complex arrhythmia following dialysis treatment and adjustments of electrolytes in her parenteral nutrition. She has been noted to have cool lower extremities and absence of pulses. An aorta ultrasound was done earlier this morning demonstrating essential absence of flow in the distal aorta and bilateral common femoral arteries. She is not a candidate for systemic anticoagulation due to active bleeding related to her multiple AVMs. She was seen again yesterday by GI, who declined to do any endoscopy procedures. She is not responding to verbal stimuli this morning. PHYSICAL EXAMINATION: VITAL SIGNS: Blood pressure currently 113/67, heart rate 82, respiratory rate is 30, saturation 96%. She is not on sedation. She is on oxygen 3 L nasal cannula. She does not respond appropriately to verbal stimuli. NECK: Shows no adenopathy or JVD. LUNGS: Coarse rhonchi. HEART: Regular rate and rhythm. There is no murmur or gallop. ABDOMEN: Soft. Bowel sounds are present. There is no guarding or rebound. EXTREMITIES: Lower extremities are cool, but not cold. Somewhat dusky, but not gangrenous. Distal lower extremity pulses cannot be appreciated. LABORATORY DATA: White count this morning 13,000, hemoglobin 8.9 with hematocrit of 26.3, platelet count 78,000, down slightly from the past few days. She has 68 segs and 17 bands. Chemistry includes sodium of 134, potassium 5.5, chloride 99, CO2 is 22, BUN 39, creatinine 3 (post dialysis). Aortic sonogram is as above. IMPRESSION: 1. End stage renal disease, on maintenance hemodialysis. 2. History of multiple vascular arteriovenous malformations with recurrent bleeding, deemed not a candidate for surgery or endoscopy at this time. She is not actively having gastrointestinal bleeding and transfusion is not required. There is chronic thrombocytopenia, mild, currently 78, down just slightly in the past 48 hours. 3. Aorta and femoral clotting. She has coolness to her lower extremities, although not obviously gangrenous. She is not a candidate for systemic anticoagulation due to her recurrent gastrointestinal bleeding events. RECOMMENDATIONS: Unfortunately, the patient appears to be reaching the end of her life. We have had difficulty obtaining and maintaining adequate access for hemodialysis. 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 These are not viable options. We will talk to the family about initiating DNR status and possibly moving toward hospice. Unfortunately, our options are virtually non-existent. Critical care 43 minutes. Job ID: [id number]
[2020-06-03] MEDS: Pantoprazole 40 MG VIAL IVP SCH ×2 (08:38→20:13)
[2020-06-03] MEDS: Aspirin 81 mg Enteric Coated Tablet PO SCH (08:38)
[2020-06-03] MEDS: Folic Acid 1 MG TAB PO SCH (08:39)
[2020-06-03] MEDS: Atorvastatin Calcium 10 MG TAB PO SCH (08:39)
--- NOTE | 2020-06-03 09:26 | PRG ---
DATE OF SERVICE: 06/03/2020 SUBJECTIVE: Ms. Sullivan is a 65-year-old black female with ESRD and followed up by the [facility] for management of her ESRD on maintenance hemodialysis. She did undergo hemodialysis yesterday and tolerated said treatment. However, the patient has not been doing well. She was noted to be more ischemic on both lower extremities. The patient had an ultrasound of aorta, which showed an essential absence of flow in the distal aorta. Anticoagulation is contraindicated due to the persistent GI bleed by this patient. Gastroenterology felt that she is not a candidate for any upper GI endoscopy or any cauterization due to her instability. Hyperkalemia is improved with adjustment of her TPN. OBJECTIVE: VITAL SIGNS: Blood pressure is noted at 116/66, heart rate 86, respiratory rate 30, and O2 saturation 100%. GENERAL: The patient is arousable, but not in distress. SKIN: Adequate turgor. HEENT: Pinkish conjunctivae. Anicteric sclerae. NECK: No neck mass. No carotid bruits. No JVD. CHEST: No deformities. LUNGS: Clear breath sounds. HEART: Normal sinus rhythm. No murmur. No gallops. No rubs. ABDOMEN: Globular, soft, and nontender. No masses. EXTREMITIES: No edema. Both lower extremities are cool to the touch. MEDICATIONS: Medications of June 03, 2020, reviewed. LABORATORY DATA: Laboratories of June 03, 2020, white count 13.1 and hemoglobin 8.9. Sodium 134, potassium 5.5, chloride 99, carbon dioxide 22, BUN 39, and creatinine 3.05. Phosphorus 7.7. Calcium 7.7. ASSESSMENT AND PLAN: 1. End-stage renal disease, stable. There is no indication for an emergent hemodialysis today. 2. Hyperphosphatemia/hyperkalemia - much improved with adjustment of her TPN solution. In addition, she did undergo hemodialysis. 3. Peripheral vascular disease - the patient's lower extremities are actually cyanotic. She is not a candidate for any anticoagulation due to the recent gastrointestinal bleed. 4. Gastrointestinal bleed - p.r.n. blood transfusion. Again as per Gastroenterology, she is not a candidate for any intervention at the present time. Overall prognosis remains dismal. The patient's daughter has been advised to come and visit the mother, who has a very poor prognosis. Job ID: [id number]
--- NOTE | 2020-06-03 10:31 | ULT ---
BILATERAL LOWER EXTREMITY ARTERIAL DOPPLER: 06/03/20 PROVIDED CLINICAL HISTORY: No pulse is detected in the femoral regions. COMPARISON: 05/15/2020 FINDINGS: Sonographic interrogation with saunders-scale and color Doppler sonography and spectral analysis was perf ormed of the abdominal aorta and both common femoral arteries. There is no flow seen within the abdom inal aorta or the common femoral arteries bilaterally. IMPRESSION: Aortic and common femoral artery occlusion. POS: CELIA
--- NOTE | 2020-06-03 15:14 | PDOC.HOSPP ---
- Subjective Encounter Date: 06/03/20 Subjective: The patient is awake today. She was able to tell me her name but I could not get any further information from her. - Objective Vital Signs & Weight: Vital Signs (12 hours) Temp Pulse Ox 06/03/20 12:00 99.4 F 06/03/20 08:00 99.6 F 06/03/20 07:52 100 06/03/20 04:00 99.2 F Weight Admit Weight 132 lb 11.492 oz Weight 132 lb 11.492 oz Most Recent Monitor Data Heart Rate from ECG 85 NIBP 91/47 NIBP BP-Mean 61 Respiration from ECG 30 SpO2 100 I&O: 06/02/20 06/03/20 06/04/20 07:59 06:59 06:59 Intake Total Output Total 0 Balance 0 Result Diagrams: 06/03/20 05:26 06/03/20 05:26 Additional Labs: Accuchecks 06/03/20 06/02/20 00:20 18:19 POC Glucose 126 H 105 H Hospitalist ROS - Medication Medications: Active Medications Generic Name Dose Route Start Last Admin Trade Name Freq PRN Reason Stop Dose Admin Aspirin 81 mg 06/01/20 09:00 06/03/20 08:38 Aspirin 81 Mg Enteric Coated Tablet PO Not Given DAILY ALONZO Atorvastatin Calcium 10 mg 06/01/20 09:00 06/03/20 08:39 Atorvastatin Calcium 10 Mg Tab PO Not Given DAILY ALONZO Dextrose/Water 25 gm 05/30/20 14:02 05/31/20 18:46 Dextrose 50% Abboject 50 Ml Syringe SLOW IVP 25 gm PRN PRN Administration Hypoglycemia Epoetin Johnson-epbx 10,000 unit 05/30/20 12:30 05/30/20 14:17 Epoetin Johnson-Epbx (Esrd) 10,000 Unit/Ml Vial SC 10,000 unit Q7D ALONZO Administration Folic Acid 1 mg 06/01/20 09:00 06/03/20 08:39 Folic Acid 1 Mg Tab PO Not Given DAILY ALONZO Thiamine HCl 100 mg/ Sodium 51 mls @ 100 mls/hr 05/31/20 20:00 06/02/20 20:14 Chloride IVPB 51 mls Q24HR ALONZO Administration Norepinephrine Bitartrate 250 mls @ 0 mls/hr 06/02/20 09:00 06/02/20 23:51 Levophed IVPB 250 mls INF ALONZO Administration Protocol Titrate Fat Emulsion Intravenous 250 2,297.3529 mls @ 95.723 mls/hr 06/02/20 22:00 06/02/20 22:18 ml/ Sodium Chloride 100 meq/ IV 2,297.3529 mls Calcium Chloride 10 meq/ INF ALONZO Administration Multivitamins 10 ml/ Chromium/ Copper/Manganese/Seleni/Zn 1 ml/ Famotidine 40 mg/ Amino Acids/Dextrose Morphine Sulfate 2 mg 06/03/20 05:09 06/03/20 12:34 Morphine 2 Mg/Ml Vial SLOW IVP 2 mg Q4H PRN Administration Pain Pantoprazole Sodium 40 mg 05/31/20 21:00 06/03/20 08:38 Pantoprazole 40 Mg Vial IVP 40 mg Q12HR ALONZO Administration Sodium Chloride 10 ml 05/31/20 21:00 06/03/20 08:39 Flush - Normal Saline 10 Ml Syringe IVF 10 ml Q12HR ALONZO Administration - Exam General Appearance: awake alert ENT: normocephalic atraumatic Neck: supple, no JVD Respiratory: normal chest expansion, no tachypnea, rhonchi Gastrointestinal: soft, non-tender, non-distended Neurological: cranial nerve grossly intact Hosp A/P (1) Wide-complex tachycardia Code(s): I47.2 - VENTRICULAR TACHYCARDIA Status: Acute (2) Anemia due to acute blood loss Code(s): D62 - ACUTE POSTHEMORRHAGIC ANEMIA Status: Acute (3) Elevated troponin Code(s): R74.8 - ABNORMAL LEVELS OF OTHER SERUM ENZYMES Status: Acute (4) GI bleed Code(s): K92.2 - GASTROINTESTINAL HEMORRHAGE, UNSPECIFIED Status: Acute Qualifiers: GI bleed type/associated pathology: unspecified gastrointestinal hemorrhage type Qualified Code(s): K92.2 - Gastrointestinal hemorrhage, unspecified (5) Hyperkalemia Code(s): E87.5 - HYPERKALEMIA Status: Acute (6) Hypotension Status: Acute Qualifiers: Hypotension type: unspecified hypotension type Qualified Code(s): I95.9 - Hypotension, unspecified - Plan Severe hyperkalemia and arrhythmia were reported. The patient's hyperkalemia and hyperphosphatemia improved with dialysis y . Her TPN fluid was adjusted. Agitation improved since yesterday. Vital signs are more stable today. H&H stable with no evidence of overt bleeding at this time.
[2020-06-03] MEDS: CALCIUM CHLORIDE IV SCH (22:33)
[2020-06-03] MEDS: [UNRECOGNIZED DRUG - OTHER] IV SCH (22:33)
[2020-06-03] MEDS: SODIUM CHLORIDE IV SCH (22:33)
[2020-06-03] MEDS: FAT EMULSION IV SCH (22:33)
[2020-06-03] MEDS: MULTIVITAMINS IV SCH (22:33)
--- NOTE | 2020-06-03 23:27 | PRG ---
DATE OF SERVICE: 06/03/2020 Ms. Sullivan has continued to deteriorate throughout the day. Lower extremities are increasingly cool/cold and mottled. She is not yet gangrenous. Hemodynamically, she is becoming a bit more unstable. She is much less responsive. We have given her low-dose morphine to try to control pain. Multiple conversations had been held with the patient's daughter including a conversation I had at about 6 o'clock this evening. I stressed to the daughter that we have no treatment options available to us, that the patient is almost certainly going to and very likely to do so in the next 24 hours. I have strongly encouraged her to come. It is reported that she did not leave [place] coming toward [place] until approximately 10 o'clock tonight and as such, I do not expect her in until sometime tomorrow. In the last conversation I had, she still wanted us to provide resuscitation. I would certainly not do a prolonged CPR and I doubt that we will have much success. I suspect that the patient is going to become increasingly acidemic with further electrolyte abnormalities. Job ID: [id number]
[2020-06-04] MEDS: Morphine 2 MG/ML VIAL SLOW IVP PRN ×2 (02:19→20:05)
[2020-06-04 03:42] LABS: INR-International Normal Ratio 1.2; Prothrombin Time 15.1 sec (12.0-14.7)
[2020-06-04] MEDS: Aspirin 81 mg Enteric Coated Tablet PO SCH (09:13)
[2020-06-04] MEDS: Folic Acid 1 MG TAB PO SCH (09:14)
[2020-06-04] MEDS: Atorvastatin Calcium 10 MG TAB PO SCH (09:14)
[2020-06-04] MEDS: Pantoprazole 40 MG VIAL IVP SCH (09:14)
--- NOTE | 2020-06-04 09:40 | PRG ---
DATE OF SERVICE: 06/04/2020 SUBJECTIVE: Ms. Sullivan is a 65-year-old black female with ESRD and currently on maintenance hemodialysis and followed up by the [facility]. She has not been doing well. Her circulation in both lower extremities is worsen. There was essentially quite cold. We could not anticoagulate this patient due to the recent GI bleed. She is too sick or too unstable to undergo an emergent upper GI endoscopy. The daughter is coming to make a final decision whether they want to pursue hospice. For the moment, we are holding off dialysis with this patient until they finalized their decision. OBJECTIVE: VITAL SIGNS: Blood pressure 90/58, heart rate 84, respiratory rate 20, and O2 saturation 100%. GENERAL: The patient is arousable, not in overt distress. SKIN: Adequate turgor. HEENT: She has slightly pale conjunctivae. Anicteric sclerae. NECK: No neck mass. No carotid bruits. No JVD. CHEST: No deformities. LUNGS: Clear breath sounds. No wheezing. No crackles. HEART: Normal sinus rhythm. No murmur. No gallops. No rubs. ABDOMEN: Globular, soft, and nontender. No masses. EXTREMITIES: No edema. Legs are quite cold on palpation. MEDICATIONS: Medications of June 04, 2020, reviewed. LABORATORY DATA: Laboratories of June 03, 2020; white count 13.1, hemoglobin 8.9, sodium 134, potassium 5.5, chloride 99, carbon dioxide 22, BUN 39, creatinine 3.05, and calcium 7.7. ASSESSMENT AND PLAN: 1. End-stage renal disease-holding hemodialysis until the family decides regarding final option. Consideration for hospice is being made at the present time. 2. Peripheral vascular disease-circulation in the lower extremities has worsen. She is not a candidate for anticoagulation due to the recent gastrointestinal bleed. 3. Gastrointestinal bleed, stable. P.r.n. blood transfusion. The patient is too unstable to undergo any emergent upper GI endoscopy. Job ID: [id number]
--- NOTE | 2020-06-04 11:25 | PDOC.FMACP ---
Advance Care Planning - Problem (1) Palliative care encounter Status: Acute Code(s): Z51.5 - ENCOUNTER FOR PALLIATIVE CARE (2) Acute respiratory failure with hypoxia Status: Acute Code(s): J96.01 - ACUTE RESPIRATORY FAILURE WITH HYPOXIA (3) Anemia due to acute blood loss Status: Acute Code(s): D62 - ACUTE POSTHEMORRHAGIC ANEMIA (4) Guaiac positive stools Status: Acute (5) Hypotension Status: Acute Qualifiers: Hypotension type: unspecified hypotension type Qualified Code(s): I95.9 - Hypotension, unspecified - Note Participants: family, palliative care Summary: Palliative Care discussed Advanced Care Planning. The diagnosis, prognosis and goals of care were discussed. Appropriate forms and documentation to accomplish the goals of care were discussed. All questions were answered. Other individual listed on Medical Power of watch technician has a non working phone number and patient daughter Esther (Who is listed as second contact) confirms the Venu Lowery has . Esther is patient only child. Elected to transition to DNAR and seek comfort measures through hospice. CM consult placed, Esther has elected [facility]. Hopeful for GIP. Palliative care will assist with OOHDNAR. Emotional support, with continued disease process education. Spiritual care consult placed Communicated with Dr Alnazeer. Glroia Lang RN also present. Time Spent (mins): 45
[2020-06-04] MEDS: Norepinephrine 8 MG/250 ML IVPB SCH (12:10)
[2020-06-04 12:50] VITALS: BMI 25.0
--- NOTE | 2020-06-04 14:19 | PDOC.HOSPP ---
- Subjective Encounter Date: 06/04/20 - Objective Vital Signs & Weight: Vital Signs (12 hours) Temp Pulse Ox 06/04/20 12:00 99.0 F 06/04/20 08:09 100 06/04/20 08:00 97.7 F 100 06/04/20 04:00 98.0 F Weight Admit Weight 132 lb 11.492 oz Weight 155 lb 3.287 oz Most Recent Monitor Data Heart Rate from ECG 88 NIBP 84/51 NIBP BP-Mean 62 Respiration from ECG 22 SpO2 100 I&O: 06/03/20 06/04/20 06/05/20 06:59 06:59 06:59 Intake Total 2657.8 0 Output Total 0 Balance 2657.8 0 Result Diagrams: 06/03/20 05:26 06/03/20 05:26 Additional Labs: Accuchecks 06/04/20 06/03/20 06/03/20 10:21 17:20 12:40 POC Glucose 153 H 131 H 177 H 06/02/20 13:46 POC Glucose 94 Hospitalist ROS - Medication Medications: Active Medications Generic Name Dose Route Start Last Admin Trade Name Freq PRN Reason Stop Dose Admin Aspirin 81 mg 06/01/20 09:00 06/04/20 09:13 Aspirin 81 Mg Enteric Coated Tablet PO Not Given DAILY [facility] Atorvastatin Calcium 10 mg 06/01/20 09:00 06/04/20 09:14 Atorvastatin Calcium 10 Mg Tab PO Not Given DAILY [facility] Dextrose/Water 25 gm 05/30/20 14:02 05/31/20 18:46 Dextrose 50% Abboject 50 Ml Syringe SLOW IVP 25 gm PRN PRN Administration Hypoglycemia Epoetin Johnson-epbx 10,000 unit 05/30/20 12:30 05/30/20 14:17 Epoetin Johnson-Epbx (Esrd) 10,000 Unit/Ml Vial SC 10,000 unit Q7D ALONZO Administration Folic Acid 1 mg 06/01/20 09:00 06/04/20 09:14 Folic Acid 1 Mg Tab PO Not Given DAILY [facility] Thiamine HCl 100 mg/ Sodium 51 mls @ 100 mls/hr 05/31/20 20:00 06/03/20 20:09 Chloride IVPB 51 mls Q24HR ALONZO Administration Norepinephrine Bitartrate 250 mls @ 0 mls/hr 06/02/20 09:00 06/04/20 12:10 Levophed IVPB 250 mls INF ALONZO Administration Protocol Titrate Fat Emulsion Intravenous 250 2,297.3529 mls @ 95.723 mls/hr 06/02/20 22:00 06/03/20 22:33 ml/ Sodium Chloride 100 meq/ IV 2,297.3529 mls Calcium Chloride 10 meq/ INF ALONZO Administration Multivitamins 10 ml/ Chromium/ Copper/Manganese/Seleni/Zn 1 ml/ Famotidine 40 mg/ Amino Acids/Dextrose Morphine Sulfate 2 mg 06/03/20 05:09 06/04/20 02:19 Morphine 2 Mg/Ml Vial SLOW IVP 2 mg Q4H PRN Administration Pain Pantoprazole Sodium 40 mg 05/31/20 21:00 06/04/20 09:14 Pantoprazole 40 Mg Vial IVP 40 mg Q12HR ALONZO Administration Sodium Chloride 10 ml 05/31/20 21:00 06/04/20 09:18 Flush - Normal Saline 10 Ml Syringe IVF 10 ml Q12HR ALONZO Administration - Exam ENT: normocephalic atraumatic Neck: supple, no JVD Heart: RRR Respiratory: normal chest expansion, no tachypnea Extremities: no cyanosis, no clubbing Hosp A/P (1) Wide-complex tachycardia Code(s): I47.2 - VENTRICULAR TACHYCARDIA Status: Acute (2) Anemia due to acute blood loss Code(s): D62 - ACUTE POSTHEMORRHAGIC ANEMIA Status: Acute (3) Elevated troponin Code(s): R74.8 - ABNORMAL LEVELS OF OTHER SERUM ENZYMES Status: Acute (4) GI bleed Code(s): K92.2 - GASTROINTESTINAL HEMORRHAGE, UNSPECIFIED Status: Acute Qualifiers: GI bleed type/associated pathology: unspecified gastrointestinal hemorrhage type Qualified Code(s): K92.2 - Gastrointestinal hemorrhage, unspecified (5) Hyperkalemia Code(s): E87.5 - HYPERKALEMIA Status: Acute (6) Hypotension Status: Acute Qualifiers: Hypotension type: unspecified hypotension type Qualified Code(s): I95.9 - Hypotension, unspecified - Plan 06/03: Severe hyperkalemia and arrhythmia were reported. The patient's hyperkalemia and hyperphosphatemia improved with dialysis yesterday. Her TPN fluid was adjusted. Agitation improved since yesterday. Vital signs are more stable today. H&H stable with no evidence of overt bleeding at this time. 06/04: Palliative care team met with the family and the patient was transitioned to comfort care today.
[2020-06-04 16:22] VITALS: TEMP 98.4
[2020-06-04] MEDS ORDERED: Acetaminophen 650 MG Suppository PR PRN (20:02)
[2020-06-04] MEDS ORDERED: Acetaminophen 325 MG TAB PO PRN (20:09)
[2020-06-04] MEDS ORDERED: diphenhydrAMINE 50 MG/ML VIAL IVP PRN (20:10)
[2020-06-04] MEDS ORDERED: diphenhydrAMINE 25 MG CAP PO PRN (20:10)
[2020-06-04] MEDS ORDERED: Lorazepam 2 MG/ML VIAL SLOW IVP PRN (20:11)
[2020-06-04] MEDS ORDERED: Haloperidol Lactate 5 MG/ML VIAL SLOW IVP PRN (20:12)
[2020-06-04] MEDS ORDERED: Ondansetron PF 4 MG/2 ML Vial IVP PRN (20:13)
--- NOTE | 2020-06-04 20:14 | PRG ---
DATE OF SERVICE: 06/04/2020 Ms. Sullivan was transferred back into the Critical Care Unit. Apparently family has opted for comfort care and do not resuscitate status. We will follow from a distance. Job ID: [id number] MTDD
[2020-06-04] MEDS ORDERED: Morphine 2 MG/ML VIAL SLOW IVP PRN ×2 (20:16→20:20)
[2020-06-04] MEDS ORDERED: Scopolamine 1.5 mg/72 hour Patch TOP SCH (21:00)
--- NOTE | 2020-06-06 11:54 | DIS ---
DATE OF ADMISSION: 06/04/2020 DATE OF DISCHARGE: 06/05/2020 DISCHARGE DIAGNOSES: 1. GI bleeding. 2. Anemia due to acute blood loss. 3. Wide-complex tachycardia. 4. Elevated troponin. 5. Hyperkalemia. 6. Hypotension. HISTORY OF PRESENT ILLNESS AND HOSPITAL COURSE: The patient is a 65-year-old female with past medical history of GI bleeding due to AVMs, who was on anticoagulation due to a recent pulmonary embolus. After returning home, the patient was sent back to the hospital after an episode of bleeding. The patient required a blood transfusion and had an endoscopic evaluation, where a bleeding vessel in her stomach was cauterized. The patient at that time was discharged to home on anticoagulation. She was sent to our facility from her dialysis center after a near syncopal episode associated with hypotension. The patient was found to be anemic and GI bleed was suspected. She did receive Kcentra for reversal of Eliquis and was admitted to the intensive care unit. The patient did have a few black stools while she was in the hospital. The patient was managed conservatively at this time. Did not require endoscopic evaluation. She received hemodialysis per Nephrology recommendations. The patient was agitated and confused for most of her hospital stay. Given her complicated history and poor prognosis, Palliative Care Team met with the patient's family and decision was made to pursue comfort care. Job ID: [id number]
== END 2020-06-04 21:04 | disposition hospice, inpatient (51) | DRG 377 ==
LOC: ERS 07:52 → CCU 11:18 → IMCU/EMU 05-31 15:37 → CCU 06-02 07:23 → ONC 06-04 20:35
PROVIDERS: ADMIT Student in an Organized Health Care Education/Training Program; ATTEND Internal Medicine
PROC: 3E033XZ Introduction of Vasopressor into Peripheral Vein, Percutaneous Approach (ICD-10-PCS; principal; 2020-05-30)
PROC: 02HV33Z Insertion of Infusion Device into Superior Vena Cava, Percutaneous Approach (ICD-10-PCS; 2020-05-30)
PROC: 30233N1 Transfusion of Nonautologous Red Blood Cells into Peripheral Vein, Percutaneous Approach (ICD-10-PCS; 2020-05-30)
PROC: 5A1D70Z Performance of Urinary Filtration, Intermittent, Less than 6 Hours Per Day (ICD-10-PCS; 2020-05-30)
DX: K92.2 Gastrointestinal hemorrhage, unspecified (principal); N18.6 End stage renal disease; R57.8 Other shock; G93.41 Metabolic encephalopathy; J96.01 Acute respiratory failure with hypoxia; D62 Acute posthemorrhagic anemia; I13.2 Hypertensive heart and chronic kidney disease with heart failure and with stage 5 chronic kidney disease, or end stage renal disease; E46 Unspecified protein-calorie malnutrition; D61.818 Other pancytopenia; I47.2 Ventricular tachycardia; Z51.5 Encounter for palliative care; Z66 Do not resuscitate; Z20.828 Contact with and (suspected) exposure to other viral communicable diseases; I25.10 Atherosclerotic heart disease of native coronary artery without angina pectoris; D63.1 Anemia in chronic kidney disease; J45.909 Unspecified asthma, uncomplicated; I73.9 Peripheral vascular disease, unspecified; I50.9 Heart failure, unspecified; I08.1 Rheumatic disorders of both mitral and tricuspid valves; I27.20 Pulmonary hypertension, unspecified; E16.2 Hypoglycemia, unspecified; E87.5 Hyperkalemia; E83.39 Other disorders of phosphorus metabolism; Z95.810 Presence of automatic (implantable) cardiac defibrillator; Z90.49 Acquired absence of other specified parts of digestive tract; Z86.711 Personal history of pulmonary embolism; Z68.25 Body mass index [BMI] 25.0-25.9, adult
CPT/HCPCS: 36415; 36416; 36430; 36556; 51701; 70450; 71045; 76705; 76775; 80048; 80053; 80069; 81003; 81015; 82274; 82330; 82553; 82803; 82805; 83605; 83735; 84100; 84443; 84484; 85014; 85018; 85025; 85060; 85610; 85730; 86850; 86900; 86901; 87040; 87635; 87804; 90935; 93005; 94760; 96365; 96366; 96367; 96375; C9113; C9132; G0257; J0282; J0692; J1630; J1644; J1815; J2001; J2060; J2270; J3010; J3370; J3411; J3490; J7042; P9016; Q5105; U0003

== ENCOUNTER 2020-06-04 21:14 | Inpatient (IN) | payer OTHER ==
[2020-06-04 21:55] VITALS: BMI 23.6
[2020-06-04] MEDS ORDERED: Acetaminophen 650 MG Suppository PR PRN (22:13)
[2020-06-04] MEDS ORDERED: Acetaminophen 325 MG TAB PO PRN (22:13)
[2020-06-04] MEDS ORDERED: diphenhydrAMINE 25 MG CAP PO PRN (22:14)
[2020-06-04] MEDS ORDERED: diphenhydrAMINE 50 MG/ML VIAL IVP PRN (22:14)
[2020-06-04] MEDS ORDERED: Lorazepam 2 MG/ML VIAL SLOW IVP PRN (22:16)
[2020-06-04] MEDS ORDERED: Haloperidol Lactate 5 MG/ML VIAL SLOW IVP PRN (22:16)
[2020-06-04] MEDS ORDERED: Ondansetron PF 4 MG/2 ML Vial IVP PRN (22:17)
[2020-06-04] MEDS ORDERED: Morphine 2 MG/ML VIAL SLOW IVP PRN (22:18)
[2020-06-04] MEDS ORDERED: Scopolamine 1.5 mg/72 hour Patch TOP SCH (22:30)
--- NOTE | 2020-06-05 10:58 | PDOC.HOSPP ---
- Subjective Encounter Date: 06/05/20 Subjective: The patient is resting comfortably. - Objective Vital Signs & Weight: Vital Signs (12 hours) Temp Pulse Resp BP Pulse Ox 06/05/20 08:00 98.3 F 91 18 133/85 93 L Weight Weight 146 lb 9 oz Hospitalist ROS - Medication Medications: Active Medications Generic Name Dose Route Start Last Admin Trade Name Freq PRN Reason Stop Dose Admin Lorazepam 1 mg 06/04/20 22:16 06/05/20 04:50 Lorazepam 2 Mg/Ml Vial SLOW IVP 1 mg Q4H PRN Administration Anxiety/Restlessness Morphine Sulfate 2 mg 06/04/20 22:18 06/05/20 01:50 Morphine 2 Mg/Ml Vial SLOW IVP 2 mg Q1H PRN Administration PAIN/SOB/EOL COMFORT Scopolamine 1.5 mg 06/04/20 22:30 06/05/20 00:12 Scopolamine 1.5 Mg/72 Hour Patch TOP 1.5 mg Q3D ALONZO Administration - Exam ENT: normocephalic atraumatic Neck: supple, no JVD Heart: RRR Respiratory: normal chest expansion Hosp A/P (1) Pulmonary embolism Code(s): I26.99 - OTHER PULMONARY EMBOLISM WITHOUT ACUTE COR PULMONALE Status: Acute (2) Wide-complex tachycardia Code(s): I47.2 - VENTRICULAR TACHYCARDIA Status: Acute (3) CAD (coronary artery disease) Code(s): I25.10 - ATHSCL HEART DISEASE OF [place] CORONARY ARTERY W/O ANG PCTRS Status: Chronic Qualifiers: Coronary Disease-Associated Artery/Lesion type: three affiliated artery [place] vs. transplanted heart: three affiliated heart Associated angina: without angina Qualified Code(s): I25.10 - Atherosclerotic heart disease of three affiliated coronary artery without angina pectoris (4) COPD (chronic obstructive pulmonary disease) Status: Chronic Qualifiers: COPD type: chronic bronchitis (5) Dyslipidemia Code(s): E78.5 - HYPERLIPIDEMIA, UNSPECIFIED Status: Chronic (6) Hypotension due to blood loss Code(s): I95.89 - OTHER HYPOTENSION Status: Resolved - Plan Continue current comfort care measures.
[2020-06-05 18:45] VITALS: BP 74/46; TEMP 98.7
--- NOTE | 2020-06-06 15:31 | DIS ---
DATE OF ADMISSION: 06/04/2020 DATE OF DISCHARGE: 06/05/2020 This is a 65-year-old female, who was admitted to hospice with uncontrollable GI bleed, hyperkalemia, wide-complex tachycardia. The patient on June 05 at 2240. [place] [facility] [place] complications were reported. Family was aware. Job ID: [id number]
== END 2020-06-05 22:40 | disposition expired | DRG 951 ==
LOC: ONC 21:14
PROVIDERS: ADMIT Internal Medicine Nephrology; ATTEND Internal Medicine
DX: Z51.5 Encounter for palliative care (principal); N18.6 End stage renal disease; A41.9 Sepsis, unspecified organism; G93.41 Metabolic encephalopathy; R65.20 Severe sepsis without septic shock; I26.99 Other pulmonary embolism without acute cor pulmonale; I12.0 Hypertensive chronic kidney disease with stage 5 chronic kidney disease or end stage renal disease; I47.2 Ventricular tachycardia; Z66 Do not resuscitate; R57.8 Other shock; D50.0 Iron deficiency anemia secondary to blood loss (chronic); R68.0 Hypothermia, not associated with low environmental temperature; I25.10 Atherosclerotic heart disease of native coronary artery without angina pectoris; J44.9 Chronic obstructive pulmonary disease, unspecified; E78.5 Hyperlipidemia, unspecified; I95.89 Other hypotension; Z95.810 Presence of automatic (implantable) cardiac defibrillator; Z99.2 Dependence on renal dialysis; Z87.891 Personal history of nicotine dependence; Z79.899 Other long term (current) drug therapy; Z79.82 Long term (current) use of aspirin
CPT/HCPCS: J2060; J2270